=== PATIENT | male | born 1950 | race Caucasian/White ===

== ENCOUNTER → 2017-09-10 16:14 | Outpatient (CLI) | payer MEDICARE, OTHER, SELFPAY ==
--- NOTE | 2017-09-10 16:45 | MRI_ITS ---
STUDY: MRI LEFT SHOULDER REASON FOR EXAM: Male, 67 years old. Pain TECHNIQUE: Standardized fat and water weighted pulse sequences were obtained in all 3 orthogonal planes. COMPARISON: X-ray 12/29/2015 FINDINGS: There is osteoarthritis of the acromioclavicular joint (image /22 axial proton density fat sat). There is slight abnormal signal of the infraspinatus and supraspinatus tendon insertions (image 14, 9, 01/04 coronal proton density fat sat, T2 fat sat). Normal glenohumeral articulation. Normal humeral head and visualized proximal humerus. Normal biceps labral complex. Normal intracapsular long biceps tendon. Normal labrum. Normal capsulo- ligamentous complex. Normal rotator interval. Normal visualized coracohumeral and coracoacromial ligaments. Normal quadrilateral space. Normal axillary space. Normal deltoid muscle. Normal trapezius muscle. MRI/Upper Ext Joint Only(Routine) IMPRESSION: Mild rotator cuff tendinosis Osteoarthritis of the acromioclavicular joint Electronically Signed: Rick Cifuentes MD at 21:55 EDT Tel , Service support ,
== END ==
PROVIDERS: Family Provider Family Medicine; PCP Family Medicine; Visit Provider Orthopaedic Surgery
DX: M75.102 Unspecified rotator cuff tear or rupture of left shoulder, not specified as traumatic (principal)
CPT/HCPCS: 73221

== ENCOUNTER → 2018-09-06 07:22 | Outpatient (CLI) | payer MEDICARE, OTHER, SELFPAY ==
[2018-09-06 10:26] LABS: Hematocrit 45.4 % (40-54); Hemoglobin 15.6 g/dl (13.0-16.5); Mean Corp Hgb Conc 34.4 g/gl (32-36); Mean Corpuscular Hgb 30.1 pg (27.0-32.0); Mean Corpuscular Volume 87.6 fL (80-94); Mean Platelet Vol. 9.1 fl (6.2-12.0); Platelet Count 211 K/mm3 (150-450); RBC Distribution Width CV 13.5 % (11.6-14.6); Red Blood Count 5.18 M/mm3 (4.6-6.2); White Blood Count 6.1 K/mm3 (4.4-11.0)
[2018-09-06 10:27] LABS: Scan Indicated on CBC? Y/N NO
[2018-09-06 10:43] LABS: Anion Gap 4 (5-15); BUN 16 mg/dL (7-18); BUN/Creat Ratio 13.7 RATIO (10-20); Calcium,Total 8.6 mg/dL (8.5-10.1); Chloride 109 mmol/L (98-107); Cholesterol 150 mg/dL (200); Creatinine, Serum 1.17 mg/dL (0.70-1.30); EST Glomerular Filtration Rate 66 mL/min (>60); Est Glom Filt Rate - Afr Amer 80 mL/min (>60); Glucose 98 mg/dL (74-106); High Density Lipoprotein 40 mg/dL; PSA,Total - Annual Screen 2.27 ng/mL (0.00-4.00); Potassium 3.9 mmol/L (3.5-5.1); Sodium Level 141 mmol/L (136-145); Triglycerides 166 mg/dL; Very Low Density Lipoprotein 33 mg/dL (5-40)
== END ==
PROVIDERS: Family Provider Family Medicine; PCP Family Medicine; Referring Provider Family Medicine; Visit Provider Family Medicine
DX: Z00.00 Encounter for general adult medical examination without abnormal findings (principal); E78.00 Pure hypercholesterolemia, unspecified; Z12.5 Encounter for screening for malignant neoplasm of prostate
CPT/HCPCS: 36415; 80048; 80061; 84153; 85027; G0103

== ENCOUNTER → 2019-09-08 07:28 | Outpatient (CLI) | payer MEDICARE, OTHER, SELFPAY ==
[2019-09-08 07:37] LABS: Bacteria 0 SEEN /hpf (None Seen); Mucous, Urine 0 SEEN /hpf (<or=2+); Red Blood Cells-Urine 0 SEEN /hpf (0-5); Squamous Epithelial Cells - UA 0 SEEN /hpf (0-5)
[2019-09-08 09:49] LABS: Absolute Lymphocyte Count 2.16 X10^3/uL (0.83-4.51); Absolute Neutrophil Count 2.8 X10^3/uL (2.0-7.7); Basophil# 0.05 X10^3/uL; Basophil% 0.9 % (0-1); Eosinophils% 3.4 % (0-5); Hematocrit 47.8 % (40-54); Hemoglobin 15.5 g/dL (13.0-16.5); Lymphocyte # 2.16 X10^3/ul (4.0); Lymphocyte % 37.1 % (19-41); Mean Corp Hgb Conc 32.4 g/dL (32-36); Mean Corpuscular Hgb 29.5 pg (27.0-32.0); Mean Platelet Vol. 9.1 fl (6.2-12.0); Monocyte# 0.56 X10^3/uL; Monocyte% 9.6 % (0-10); NRBC Flagged by Analyzer 0 % (0-5); Neutrophil # 2.83 X10^3/uL (2.7-7.7); Neutrophil % 48.7 % (47-70); Platelet Count 228 K/mm3 (150-450); RBC Distribution Width CV 13.5 % (11.6-14.6); RBC Distribution Width SD 45.1 fl (35.1-43.9); Red Blood Count 5.25 M/mm3 (4.6-6.2); White Blood Count 5.8 K/mm3 (4.4-11.0)
[2019-09-08 09:50] LABS: Color, Urine Yellow (Yellow); Glucose, Dipstick Normal (Normal); Ketone-Dipstick Negative (Negative); Leukocyte Esterase-Dipstick 25 /ul (Negative); Nitrite-Dipstick Negative (Negative); Occult Blood-Urine Negative /ul (Negative); Protein-Dipstick Negative (Negative); Specific Gravity, Urine 1.025 (1.002-1.030); Urine Bilirubin Dipstick Negative (Negative); Urine Clarity Clear (Clear); Urine Urobilinogen Normal (Normal)
[2019-09-08 09:59] LABS: White Blood Cells 0-5 SEEN /hpf (0-5)
[2019-09-08 10:50] LABS: ALB/GLOB Ratio 1.4 RATIO (0.9-2.4); AST(SGOT) 21 U/L (15-37); Alanine Aminotransfer ALT/SGPT 25 U/L (16-61); Albumin, Serum 3.8 g/dL (3.2-5.0); Alkaline Phosphatase 63 U/L (45-117); Anion Gap 6 (5-15); BUN 23 mg/dL (7-18); BUN/Creat Ratio 20.9 RATIO (10-20); Calcium,Total 9.1 mg/dL (8.5-10.1); Chloride 106 mmol/L (98-107); Cholesterol 145 mg/dL (200); EST Glomerular Filtration Rate 70 mL/min (>60); Est Glom Filt Rate - Afr Amer 85 mL/min (>60); Globulin 2.8 g/dL (2.2-4.2); Glucose 99 mg/dL (74-106); High Density Lipoprotein 46 mg/dL; Magnesium 2.3 mg/dL (1.6-2.6); Protein, Total 6.6 g/dL (6.4-8.2); Sodium Level 139 mmol/L (136-145); Triglycerides 138 mg/dL; Uric Acid 4.7 mg/dL (3.5-7.2); Very Low Density Lipoprotein 28 mg/dL (5-40)
== END ==
PROVIDERS: PCP Family Medicine; Referring Provider Family Medicine; Visit Provider Family Medicine
DX: M10.9 Gout, unspecified (principal); I10 Essential (primary) hypertension; E78.00 Pure hypercholesterolemia, unspecified
CPT/HCPCS: 36415; 80053; 80061; 81001; 83735; 84550; 85025

== ENCOUNTER → 2019-09-26 07:42 | Outpatient (CLI) | payer MEDICARE, OTHER, SELFPAY ==
[2017-09-02 10:53] VITALS: BMI 31.8
[2019-09-26 10:07] LABS: AST(SGOT) 22 U/L (15-37); Alanine Aminotransfer ALT/SGPT 26 U/L (16-61); Albumin, Serum 3.5 g/dL (3.2-5.0); Alkaline Phosphatase 72 U/L (45-117); Bilirubin, Direct 0.16 mg/dL (0.00-0.30); Protein, Total 6.5 g/dL (6.4-8.2)
== END ==
PROVIDERS: PCP Family Medicine; Referring Provider Family Medicine; Visit Provider Family Medicine
DX: E80.6 Other disorders of bilirubin metabolism (principal)
CPT/HCPCS: 36415; 80076

== ENCOUNTER → 2020-04-02 16:56 | Outpatient (CLI) | payer MEDICARE, OTHER, SELFPAY ==
[2019-12-18 19:08] VITALS: BMI 31.8
[2020-04-02 18:37] LABS: Absolute Lymphocyte Count 0.81 X10^3/uL (0.83-4.51); Absolute Neutrophil Count 13.8 X10^3/uL (2.0-7.7); Basophil# 0.02 X10^3/uL; Basophil% 0.1 % (0-1); Hematocrit 46.4 % (40-54); Hemoglobin 15.8 g/dL (13.0-16.5); Lymphocyte # 0.81 X10^3/ul (4.0); Lymphocyte % 5.1 % (19-41); Mean Corp Hgb Conc 34.1 g/dL (32-36); Mean Corpuscular Hgb 30.4 pg (27.0-32.0); Mean Corpuscular Volume 89.4 fL (80-94); Monocyte# 1.32 X10^3/uL; Monocyte% 8.3 % (0-10); NRBC Flagged by Analyzer 0 % (0-5); Neutrophil # 13.75 X10^3/uL (2.7-7.7); Neutrophil % 85.9 % (47-70); Platelet Count 269 K/mm3 (150-450); RBC Distribution Width CV 13.3 % (11.6-14.6); RBC Distribution Width SD 43.7 fl (35.1-43.9); Red Blood Count 5.19 M/mm3 (4.6-6.2)
[2020-04-02 18:54] LABS: AST(SGOT) 15 U/L (15-37); Alanine Aminotransfer ALT/SGPT 22 U/L (16-61); Albumin, Serum 3.8 g/dL (3.2-5.0); Alkaline Phosphatase 77 U/L (45-117); Anion Gap 7 (5-15); BUN 22 mg/dL (7-18); BUN/Creat Ratio 20.4 RATIO (10-20); Chloride 101 mmol/L (98-107); Creatinine, Serum 1.08 mg/dL (0.70-1.30); EST Glomerular Filtration Rate 72 mL/min (>60); Est Glom Filt Rate - Afr Amer 87 mL/min (>60); Globulin 3.7 g/dL (2.2-4.2); Glucose 114 mg/dL (74-106); Potassium 3.7 mmol/L (3.5-5.1); Protein, Total 7.5 g/dL (6.4-8.2); Sodium Level 134 mmol/L (136-145)
== END ==
PROVIDERS: PCP Family Medicine; Referring Provider Family Medicine; Visit Provider Family Medicine
DX: R10.31 Right lower quadrant pain (principal)
CPT/HCPCS: 36415; 74177; 80053; 85025; 86140; Q9967; A4216

== ENCOUNTER → 2020-04-02 17:28 | Outpatient (CLI) | payer MEDICARE, OTHER, SELFPAY ==
[2019-12-18 19:08] VITALS: BMI 31.8
--- NOTE | 2020-04-02 17:48 | CT_ITS ---
STUDY: CT ABDOMEN AND PELVIS WITH CONTRAST REASON FOR EXAM: Male, 70 years old. RLQ PAIN -- hx:hernia repair RADIATION DOSAGE (If Supplied By Facility): CTDIvol = ( 12.62 ) mGy, DLP = ( 1213.92 ) mGycm TECHNIQUE: Transaxial images were obtained from the dome of the diaphragm to the symphysis pubis without oral contrast. Oral and amp; IV and amp; 100mL Isovue-370 was administered. Sagittal and coronal images were reconstructed. Individualized dose optimization techniques were used for this CT. COMPARISON: None. FINDINGS: The visualized lung bases are unremarkable. The visualized portions of the heart are within normal limits. Normal shape and size of the liver, with widespread incidental liver cysts as much as 5.4 cm. Normal gallbladder and extrahepatic biliary system. There are multiple benign calcified granulomata of the spleen. Normal pancreas. Normal bilateral adrenal glands. Normal right kidney. Normal left kidney. Evaluation of the GI tract is limited by absence of oral contrast. Cannot exclude stomach wall thickening. No dilated loops of bowel or evidence for obstruction. Cannot exclude segmental thickening of the navarrete of the small or large bowel. Cannot exclude enteritis or colitis. Moderate diffuse fecal retention. There is inflammatory process in the right lower quadrant related to an abnormal appendix which measures 1.4 cm across with several appendicoliths. No evidence for perforation or abscess. There is diffuse atherosclerotic calcification of the abdominal aorta, without a demonstrated aneurysm. Normal inferior vena cava. Normal retroperitoneum. Normal urinary bladder. There is enlargement of the prostate gland. Normal abdominal wall. Normal osseous structures. CT/Abdomen/Pelvis WITH Contrast IMPRESSION: Findings consistent with what appears to be severe appendicitis but without perforation or abscess. N.B. : The above information has been verbally conveyed by Bennie Moore MD to Tessa Friend (Tech), OT, on 04/02/2020 19:21:06 (ET). Electronically Signed: Bennie Moore MD at 19:21 EST , Service support ,
== END ==
PROVIDERS: PCP Family Medicine; Visit Provider Family Medicine
DX: R10.31 Right lower quadrant pain (principal)
CPT/HCPCS: 74177; Q9967; A4216

== ENCOUNTER 2020-04-02 19:26 | Inpatient (IN) | payer MEDICARE, OTHER, SELFPAY ==
[2019-12-18 19:08] VITALS: BMI 31.8
[2020-04-02 19:28] VITALS: BP 158/80; PULSE 80; RESP 16; TEMP 36.8; O2SAT 96; BMI 29.9
--- NOTE | 2020-04-02 19:45 | EKG12_ITS ---
Test Reason : DYSRHYTHMIA Blood Pressure : / mmHG Vent. Rate : 065 BPM Atrial Rate : 065 BPM P-R Int : 130 ms QRS Dur : 084 ms QT Int : 412 ms P-R-T Axes : 048 022 046 degrees QTc Int : 428 ms Normal sinus rhythm Normal ECG Confirmed by BRUCE KAYE, JERED ([id number]), dictionary editor YUNIOR MANNING ([id number]) on 04/03/2020 1:08:25 PM Referred By: KADEEM Confirmed By:JERED BARRERA MD
--- NOTE | 2020-04-02 19:57 | ED.VIS.GEN ---
History of Present Illness Chief Complaint: Abd Pain Informant: Patient, Family Onset: Yesterday Current Severity: Mild Maximum Severity: Moderate Narrative: Patient presents secondary to abdominal pain. He was seen by his PCP today and had an outpatient CT scan that showed severe appendicitis. He was sent here from the imaging department. Patient states his pain started yesterday in the right lower quadrant. He did have some vomiting and had a temperature of 100.2. He had mild diarrhea noted. Blood work obtained earlier today reveals a white count of 16 with a left shift. - Past Medical History (1) Obstructive sleep apnea Status: Chronic (2) High cholesterol Status: Chronic Past Medical History - Allergies and Home Meds Allergies/Adverse Reactions: Allergies No Known Allergies Allergy (Verified 04/02/20 19:28) Primary Care Physician: Seng Wilolughby MD [Primary Care Provider] - Lives: Spouse/ Significant Other Smoking Status: Former smoker Review of Systems General: Reports: Fever - 100.2 Eyes: Denies: Visual changes - bilaterally ENT: Denies: Bilateral ear pain Cardiovascular: Denies: Chest pain Respiratory: Denies: Dyspnea, Cough Gastrointestinal: Reports: Abdominal pain, Nausea, Vomiting, Diarrhea Genitourinary: Denies: Dysuria Musculoskeletal: Denies: Swelling, Extremity Pain Skin: Denies: Rash Hematologic: Denies: Easy bruising, Easy bleeding Allergy: Denies: Uticaria Physical Exam Vital Signs/Narrative: Vital Signs Temp Pulse Resp BP Pulse Ox 04/02/20 19:28 98.2 F 80 16 158/80 H 96 Inital Vital Signs reviewed: Yes General: Well nourished, Well developed Head: Normocephalic ENT: Moist mucous membranes Neck: Supple Cardiovascular: Regular rate, Regular rhythm Respiratory: No distress, CTA bilaterally Abdomen: Soft, Tender - Right lower quadrant tenderness to palpation.. Negative for: Guarding, Rebound tenderness Skin: Normal color Neurological: Alert, Oriented x3 Psychological: Normal affect Diagnostic/Tx/Re-eval Blood work obtained earlier today reveals a white count of 16 with 85.9% neutrophils. Chemistry studies grossly unremarkable. CRP is 107. CT scan with contrast reveals severe appendicitis without perforation or abscess. Rapid Covid antigen is ordered at this time. Patient be given a dose of Zosyn. I will speak with the surgeon regarding further treatment. - EKG Initial EKG Interpretation: Sinus Rhythm - Sinus at 65 with no acute ischemia. - Medical Decision Making Patient was given a dose of Zosyn on arrival. Rapid Covid antigen did return positive. Patient was seen at bedside by Dr. Waite and plan will be to go to the OR for appendectomy. ED Disposition - Plan for ED Patient: Disposition: Acute Care Hospital [facility] Diagnosis: COVID-19, Appendicitis Referrals: Seng Willoughby MD [Primary Care Provider] -
[2020-04-02] MEDS: 0.9% Normal Saline 1,000 ML 150 ML IV (20:16)
--- NOTE | 2020-04-02 20:53 | PCM.CONS.GEN ---
Problem List (1) Acute appendicitis Status: Acute Qualifiers: Acute appendicitis type: with localized peritonitis Appendicitis gangrene presence: unspecified whether gangrene present Appendicitis perforation presence: without perforation Appendicitis abscess presence: without abscess Qualified Code(s): K35.30 - Acute appendicitis with localized peritonitis, without perforation or gangrene Reason for Consult Date of Consultation: 04/02/20 History of Present Illness: The patient is a 70 year old M who presents secondary to abdominal pain. He was seen by his PCP today and had an outpatient CT scan that showed severe appendicitis. He was sent here from the imaging department. Patient states his pain started yesterday in the right lower quadrant. He did have some vomiting and had a temperature of 100.2. He had mild diarrhea noted. Blood work obtained earlier today reveals a white count of 16 with a left shift. CT scan shows: There is inflammatory process in the right lower quadrant related to an abnormal appendix which measures 1.4 cm across with several appendicoliths. No evidence for perforation or abscess. Past Medical History Past Medical History (Chronic Problems): Chronic Problems (Last Reviewed 12/18/19 @ 19:[address] Farrukh Waite MD) Obstructive sleep apnea (Chronic) High cholesterol (Chronic) Medical History: Medical History (Last Reviewed 04/02/20 @ 20:[address] Farrukh Waite MD) GERD (gastroesophageal reflux disease) K21.9 History of Mohs micrographic surgery for skin cancer Z85.828, Z98.890 Sleep apnea G47.30 High cholesterol E78.00 Hypertension I10 IBS (irritable bowel syndrome) K58.9 Allergies No Known Allergies Allergy (Verified 04/02/20 19:28) Home Medications: Ambulatory Orders Medication Instructions Recorded allopurinol 300 mg tablet 1 tab PO DAILY 12/12/19 aspirin 81 mg tablet,delayed 81 mg PO DAILY 12/12/19 release atorvastatin 10 mg tablet 1 tab PO DAILY 12/12/19 kbtkwoyw-zjy-dooko acid 300 1 tab PO DAILY 12/12/19 mcg-lycopene 600 mcg-lutein 300 mcg tablet omeprazole 20 mg capsule,delayed 1 tab PO DAILY 12/12/19 release sildenafil 100 mg tablet ea PO 12/12/19 Surgical History: Surgical History (Last Reviewed 04/02/20 @ 20:[address] Farrukh Waite MD) History of colonoscopy Onset Date: ~2012 Z98.890 History of nasal septoplasty Z98.890 History of right inguinal hernia repair Onset Date: ~2013 Z98.890, Z87.19 history of hernia repair Lives: Spouse/ Significant Other Smoking Status: Former smoker Review of Systems Constitutional: Reports: Anorexia, Chills, Fever Cardiovascular: Denies: Chest Pain, Chest Pressure, Chest Tightness, Palpitations Respiratory: Denies: Cough, Hemoptysis, Shortness of breath at rest, Shortness of breath upon exertion, Wheezing Gastrointestinal: Reports: Abdominal Pain Patient Problems: Active and Suspected Problems (Last Reviewed 12/18/19 @ 19:[address] Farrukh Waite MD) Acute appendicitis (Acute) - Physical Exam Vitals/I&O's: Vital Signs Temp Pulse Resp BP Pulse Ox 98.2 F 80 16 158/80 H 96 04/02/20 19:28 04/02/20 19:28 04/02/20 19:28 04/02/20 19:28 04/02/20 19:28 Oxygen Delivery Method Room Air Weight: 220 lb 7.396 oz Body Mass Index (BMI) 29.9 General: Alert, Oriented x3 Lungs: Clear to auscultation Cardiovascular: Regular rate, Regular Rhythm, No murmurs Abdomen: Tender - Patient has tenderness along the right side. There is no rebound there is some voluntary guarding he has a negative Rovsing sign Current Medications Sodium Chloride () 1,000 mls @ 150 mls/hr IV .Q6H40M ISA Last Admin: 04/02/20 20:16 Dose: 150 mls/hr Documented by: Assessment/Plan All Active Problems (Last Reviewed 12/18/19 @ 19:[address] Farrukh Waite MD) Acute appendicitis (Acute) Patient has a retrocecal appendicitis and my plan is to perform a laparoscopic appendectomy on him given the fact that he has several appendicoliths he is not going to be a candidate that we can manage with IV antibiotics. Risk benefits to include bleeding infection possible delayed abscess have been reviewed with the patient and his . Patient also understands blood clots heart attacks pneumonias and strokes are also a possibility. He understands that there can be delayed abscess he understands that he could have a drain placed. His Covid status is pending however he is not going to be able to be managed in a conservative management mid with IV antibiotics only. Office Visits / Consults: [id number] IP Consult L4 - Modifier 57
--- NOTE | 2020-04-02 21:30 | APP_PTH ---
PATIENT: SUZETTE GOTTLIEB LOC: [facility] U#:[id number] AGE/SX: 70/M ROOM: [facility]316 RE04/02/[address]: Dr. Roel Rizzo MD : 1950 BED: 1 DIS: 04/06/2020 SPEC #: [id number] RECD: 04/03/20 09:08 STATUS: LETY REJayna #: [id number] SANTOS: 04/02/20 21:[address]: Farrukh Waite DEPT: SURGICAL PATHOLOGY RECD BY: Mike Griffith ENTERED: 04/03/20 09:53 SP TYPE: APPENDIX OTHR DR: MD Dr. Roel Sands MD Dr. Robert Leininger, MD Tissues: Appendix, NOS Procedures: Surgery Specimen Level III HEADER OPERATION: Laparoscopic appendectomy PRE-OP DIAGNOSIS: Acute appendicitis TISSUE SUBMITTED: Appendix MICROSCOPIC DIAGNOSIS Appendix, appendectomy: Acute appendicitis. Acute serositis. AM:ricardo 04/04/20 MICROSCOPIC DESCRIPTION Slides are reviewed. GROSS DESCRIPTION Received in fixative is one container labeled with the patient's name and designated appendix. The specimen consists of an appendix in two pieces. The distal portion with tip measures 3.5 cm in length and 1 cm in diameter. The attached periappendiceal adipose tissue measures up to 1.5 cm in width. The proximal portion measures 3.5 cm in length and 1 cm in diameter. The attached periappendiceal adipose tissue measures up to 3 cm in width. The site of disruption most likely represents site of rupture. material is also noted in the container. The serosal surface is congested and covered with pak, purulent exudate. The mucosa is congested and hemorrhagic. Airline Reservation Agent sections are submitted in two cassettes. / SJ:ricardo 04/03/20 TC:2 CPT: 23401
[2020-04-02 21:31] VITALS: BP 143/76; PULSE 84; PULSE 86; RESP 17; RESP 20; TEMP 37.4; O2SAT 97; BMI 29.9
--- NOTE | 2020-04-02 23:31 | OP.PCM_ITS ---
Problem List (1) Acute appendicitis Status: Acute Qualifiers: Acute appendicitis type: with localized peritonitis Appendicitis gangrene presence: with gangrene Appendicitis perforation presence: without perforation Appendicitis abscess presence: without abscess Qualified Code(s): K35.31 - Acute appendicitis with localized peritonitis and gangrene, without perforation Report of Operation Date of Procedure: 04/02/20 Pre-Operative Diagnosis: Acute gangrenous retrocecal appendicitis with appendicoliths Post-Operative Diagnosis: Same Surgery/Procedure Performed:: Laparoscopic appendectomy Type of Anesthesia:: General Anesthesiologist: Jose Ledezma Specimen's removed: Appendix Drains: 15 round Noé-Peace Estimated Blood Loss (mL): < 25cc Description of Procedure: Patient was brought into the operating room. Placed in the supine position. The entire operating team was in the OR prior to induction of anesthesia. Jony azul was intubated without difficulty his abdomen was then sterilely prepped and draped in the usual fashion. Local was injected supraumbilically. Dissection was carried down to the fascia fascia was grasped with a [place] varies needle was placed inside the abdomen the abdomen was insufflated 15 torr. A 10/12 trocar was placed without difficulty. A suprapubic #5 trocar was placed. A left lower quadrant #5 trocar was placed. Both of these under direct visualization without injury to underlying structures. Patient was placed in the headdown position and rotated to the left. Patient had a retrocecal appendicitis and was very clear I was not going to be able to get to the base of this very easily and made a determination I was going to have to mobilize the terminal ileum which was attached to the lateral sidewall. This was easily accomplished with the Enseal. I came then down posteriorly to the cecum and started to rotated I knew from the CAT scan that he had multiple appendicoliths and it was dark and gangrenous as I started my dissection the appendix was easily friable and tore into 2 pieces. I took the initial piece as well as the fecalith and placed in a specimen bag and removed it. I then did a quite a bit of dissecting until I came down across the base of the appendix came across the mesoappendix with the Enseal and then I transected the base of the appendix with a 45 linear cutter. This took quite a bit of tedious dissection and time but I did have good hemostasis and I was able to remove the appendix and placed it into the back as well as another appendicolith. There was some small amounts of purulent material but no large abscess was identified. I irrigated all this out. I decided it was best to place a 15 round Noé-Peace drain which I did in the right upper quadrant and directed it down into the pelvis. I irrigated out the abdomen with 2 L of warm irrigation. I placed the cecum back into its normal anatomic position and the drain was underneath this and went down into the pelvis. The drain was sutured in with a 3-0 nylon. I suctioned out all the air the trochars were removed without difficulty the fascia the umbilical port was closed with [id number] stitch of 0 Vicryl skin incisions were closed with subcuticular stitches of 4-0 Monocryl and the patient tolerated the procedure well. - Admit VTE Documentation VTE Present on Admission: No VTE Mechan Device Prophylaxis: SCD's VTE Pharm Prophylaxis ordered?: No Reason prophylaxis not ordered:: Treatment Not Indicated [id number]: [id number] Laparoscopy appendectomy
--- NOTE | 2020-04-02 23:42 | PCM.CONS.GEN ---
Reason for Consult Date of Consultation: 04/02/20 Reason for Consultation: Medical consultation History of Present Illness: Admission Diagnoses: 1. Acute Sepsis secondary to Acute complicated appendicitis and possibly #2 2. ? Acute Viral Syndrome, COVID-19 3. Elevated BP without hypertensive diagnosis 4. Gout 5. Hyperlipidemia 6. PORTILLO 7. GERD The patient is a 70 y/o M w/ PMHx: HTN, IBS, PORTILLO on CPAP q HS, HLD, GERD who presents to the [facility] ED on 04/02/20 with history of 48 hours of fatigue, malaise, fevers, RLQ abdominal pain described as an ongoing dull ache with associated nausea, occasional emesis as well as occasional loose stool with PCP evaluation following which he underwent CT demonstrating acute appendicitis referred to the emergency room from the imaging department for evaluation per general surgery. Work-up in the ED included T 99.3, heart rate 80, BP 158/80, respiratory rate 16, 96% on room air, CBC with WC 16, hemoglobin 15.8, platelet 269 with left shift with concurrent lymphopenia, CMP with sodium 134, BUN/creatinine 22/1.08, glucose 114, total bilirubin 2, direct bilirubin 0.16, AST/ALT 15/22, rapid Covid antigen obtained and noted to be positive. CT abdomen and pelvis per PCP with findings consistent with severe appendicitis but without perforation or abscess. Patient was taken from the ED to the OR per Dr. Waite for laparoscopic appendectomy with noted significant acute gangrenous retrocecal appendicitis with appendicoliths with placement of ZHANE. Following OR patient was admitted to the ICU per Dr. Waite with requested consultation to hospitalist medicine. Patient denied any recent ill contacts prior to this onset and notes that he has been wearing a mask. He denies any recent headaches, sore throat, cough, dyspnea, congestion, body aches, alteration in sense of taste or smell. Past Medical History Past Medical History (Chronic Problems): Chronic Problems (Last Reviewed 04/02/20 @ 20:[address] Farrukh Waite MD) Obstructive sleep apnea (Chronic) High cholesterol (Chronic) Medical History: Medical History (Last Reviewed 04/02/20 @ 20:[address] Farrukh Waite MD) GERD (gastroesophageal reflux disease) K21.9 History of Mohs micrographic surgery for skin cancer Z85.828, Z98.890 Sleep apnea G47.30 High cholesterol E78.00 Hypertension I10 IBS (irritable bowel syndrome) K58.9 Allergies No Known Allergies Allergy (Verified 04/02/20 19:28) Home Medications: Ambulatory Orders Medication Instructions Recorded allopurinol 300 mg tablet 1 tab PO DAILY 12/12/19 aspirin 81 mg tablet,delayed 81 mg PO DAILY 12/12/19 release atorvastatin 10 mg tablet 1 tab PO DAILY 12/12/19 ghanwbzv-fmc-fcxnc acid 300 1 tab PO DAILY 12/12/19 mcg-lycopene 600 mcg-lutein 300 mcg tablet omeprazole 20 mg capsule,delayed 1 tab PO DAILY 12/12/19 release sildenafil 100 mg tablet ea PO 12/12/19 Surgical History: Surgical History (Last Reviewed 04/02/20 @ 20:[address] Farrukh Waite MD) History of colonoscopy Onset Date: ~2012 Z98.890 History of nasal septoplasty Z98.890 History of right inguinal hernia repair Onset Date: ~2013 Z98.890, Z87.19 history of hernia repair Surgical History: - - Right inguinal hernia repair, rhinoplasty. Psychiatric History: No pertinent psych hx Lives: Spouse/ Significant Other Smoking Status: Former smoker - Patient quit cigarette tobacco usage approximately 40 years prior to current presentation with prior to this 1 pack/day since he had been a teenager. Tobacco Use: Non-smoker Alcohol: Occasional - Patient notes approximately 1 glass of wine nightly. Drugs: None - *Family History Maternal Family History: Family History (Last Reviewed 12/18/19 @ 19:[address] Farrukh Waite MD) Sister Colon cancer Father Heart disease History Items: - - Patient notes that his mother during childbirth, specifically with him. Paternal Family History: Family History (Last Reviewed 12/18/19 @ 19:[address] Farrukh Waite MD) Sister Colon cancer Father Heart disease History Items: Heart Disease Sibling Family History: Family History (Last Reviewed 12/18/19 @ 19:[address] Farrukh Waite MD) Sister Colon cancer Father Heart disease History Items: Cancer - Sister with a history of colon cancer. Review of Systems Constitutional: Reports: Anorexia, Fever, Malaise, Weakness, Fatigue. Denies: Chills, Weight Change HEENT: Denies: Head Aches, Sinus Congestion, Sinus Drainage Cardiovascular: Denies: Chest Pain, Chest Pressure, Chest Tightness, Palpitations Respiratory: Denies: Cough, Shortness of Breath, Shortness of breath at rest, Shortness of breath upon exertion, Sputum production Gastrointestinal: Reports: Abdominal Pain, Diarrhea, Nausea, Vomiting Genitourinary: Denies: Dysuria Musculoskeletal: Denies: Joint Pain, Joint Tenderness Skin: Denies: Rash, Wounds Neurological: Denies: Numbness, Tingling, Focal weakness Psychiatric: Denies: Anxiety, Depression, Homicidal Ideations, Suicidal Ideations Hematologic/ Lymphatic: Denies: Easy Bruising, Easy Bleeding Patient Problems: Active and Suspected Problems (Last Reviewed 04/02/20 @ 20:[address] Farrukh Waite MD) Acute appendicitis (Acute) COVID-19 (Acute) Appendicitis (Acute) Subjective: Patient laying in ICU bed, fatigued appearing, no acute distress, still some abdominal discomfort but recent OR. Objective: Physical Examination: General: awake, alert, oriented x 3 and cooperative, laying in the ICU bed, fatigued, no acute distress. Skin: normal color, turgor, no icterus, cyanosis. HEENT: AT/NC, EOMI, PERRLA, dry MM, no carotid bruits or JVD noted. Lungs: CTA bilaterally, moderate effort, moderate decrease BL bases, no rales, ronchi or wheezing. Heart: Regular rate and rhythm; no gallop, rub audible. Abdomen: soft, expected tenderness especially right lower quadrant, status post recent OR for laparoscopic appendectomy, ZHANE drain in place with serosanguineous fluid, difficult to discern distention as significant discomfort with any palpation attempt, decreased bowel sounds, unable to discern HSM secondary to discomfort. Extremities: no cyanosis, clubbing, or edema. Neurological: patient awake, alert, oriented as noted; cognitive function nearing baseline intact, patient has expected fatigue status post OR; pupils equally reactive to light and accomodation; cranial nerves II-XII grossly normal, moving all 4 extremities, no focal deficits, strength moderately to severely globally decreased. Psychiatric: affect appears fatigued otherwise normal, no acute evidence of depressive or anxiety feelings. - Physical Exam Vitals/I&O's: Vital Signs Temp Pulse Resp BP Pulse Ox 99.3 F H 86 20 H 143/76 H 97 04/02/20 21:31 04/02/20 21:31 04/02/20 21:31 04/02/20 21:31 04/02/20 21:31 Oxygen Delivery Method Room Air Weight: 220 lb 7.396 oz Body Mass Index (BMI) 29.9 Intake and Output for Last 24 Hours 03/31/20 04/01/20 04/02/20 23:59 23:59 23:59 Intake Total 50 / 50 Balance 50 / 50 Microbiology Past 72 Hours 04/02/20 19:57 Mucosa - Nose SARS-CoV-2 Antigen (Rapid) - Final SARS-CoV-2 (COVID 19) Current Medications Sodium Chloride () 1,000 mls @ 150 mls/hr IV .Q6H40M ISA Last Admin: 04/02/20 20:16 Dose: 150 mls/hr Documented by: Assessment/Plan All Active Problems (Last Reviewed 04/02/20 @ 20:[address] Farrukh Waite MD) Acute appendicitis (Acute) COVID-19 (Acute) Appendicitis (Acute) The patient is a 70 y/o M w/ PMHx: IBS, PORTILLO on CPAP q HS, HLD, GERD who presents to the [facility] ED on 04/02/20 with history of 48 hours of fatigue, malaise, fevers, RLQ abdominal pain described as an ongoing dull ache with associated nausea, occasional emesis as well as occasional loose stool with PCP evaluation following which he underwent CT demonstrating acute appendicitis referred to the emergency room from the imaging department for evaluation per general surgery. 1. Acute Sepsis secondary to Acute complicated appendicitis and possibly #2: Patient status post OR for laparoscopic appendectomy with noted acute gangrenous retrocecal appendicitis with appendicoliths, ZHANE in place, transition to the ICU following per patient's attending, Dr. Waite, postoperative antibiotic therapy per surgery discretion, oral intake per surgery discretion, chemoprophylaxis given recent operative intervention per surgery discretion, would expect consultation with ICU given usage of ICU bed, antiemetic/pain regimen/bowel regimen/activity parameters per surgery discretion. 2. ? Acute Viral Syndrome, COVID-19: Patient does have lymphopenia, symptoms with fever, nausea with emesis as well as occasional loose stools but in the setting of #1, acute appendicitis, testing performed with rapid antigen therefore will request repeat testing with PCR to be thorough. Maintain patient in the ICU as noted #1 on Covid precautions, maintain on oxygen with wean as tolerated to room air, HOB, IS parameters, will obtain COVID admission panel labs including procalcitonin, CRP, CPK, Ferritin, LDH, d-dimer although given recent infection and surgery would expect certain elevations, continue supportive care including q 2 hour turning including prone given no prone bed availability and judicious hydration. 3. Elevated BP without hypertensive diagnosis: ED evaluation with elevated blood pressures above goal, continue to monitor, add oral regimen if appropriate, as needed IV hydralazine in interim. 4. Gout: Continue home allopurinol regimen. 5. Hyperlipidemia: Continued home statin regimen. 6. PORTILLO: We will continue CPAP nightly. 7. GERD: Home PPI continued. 8. DVT prophylaxis: SCDs, defer chemoprophylaxis to surgery given recent OR. 9. CODE status: Patient JAYLAN is his and living will is currently in place. Discussed CODE status at length including difference between FULL code, DNR-CCA and DNR-CC status. Following discussions about the differences in these status, requested Full Code status. Advanced Care Planning Face to Face Time: 16 minutes. Office Visits / Consults: 07709 IP Consult L4 Procedures: [id number] Advncd Care Plan 30 Min
[2020-04-03] VITALS (23 sets, daily range): BP systolic 119–168; BP diastolic 76–100; PULSE 61–100; RESP 13–23; TEMP 36.3–36.8; O2SAT 93–100; BMI 31.8
[2020-04-03] MEDS: 0.9% Normal Saline 1,000 ML 100 ML IV ×3 (00:25→20:52)
[2020-04-03] MEDS: Morphine 2 MG/ML Syringe IV (00:59)
[2020-04-03] MEDS: 0.9% Saline Lock 10 ML Syringe IV ×3 (01:00→10:50)
[2020-04-03] MEDS: oxyCODONE 5 MG Tablet PO ×2 (01:16→05:33)
[2020-04-03 01:25] LABS: International Normalized Ratio 1.2; Prothrombin Time (Protime)PT. 14.8 SECONDS (11.7-14.9)
[2020-04-03 01:26] LABS: Fibrinogen 567 mg/dl (203-444)
[2020-04-03 01:36] LABS: D-Dimer Quantitative (DVT/PE) 1.47 FEU/ug/m (0.27-0.49)
[2020-04-03 01:47] LABS: CPK Total, Creatine Kinase 165 U/L (39-308); LDH 190 U/L (87-241)
[2020-04-03 01:58] LABS: BNP,B-Type NATRIURETIC PEPTIDE 255.2 pg/mL (0-100)
[2020-04-03 02:07] LABS: Procalcitonin 0.12 ng/mL (0.00-0.09)
[2020-04-03 02:30] LABS: Probe Check PASS; Specimen Processing Control PASS
[2020-04-03 05:55] LABS: Absolute Neutrophil Count 9.8 X10^3/uL (2.0-7.7); Basophil# 0.01 X10^3/uL; Basophil% 0.1 % (0-1); Eosinophils% 1.8 % (0-5); Hematocrit 44.8 % (40-54); Hemoglobin 15.4 g/dL (13.0-16.5); Lymphocyte % 2.7 % (19-41); Mean Corp Hgb Conc 34.4 g/dL (32-36); Mean Corpuscular Hgb 30.2 pg (27.0-32.0); Mean Corpuscular Volume 87.8 fL (80-94); Mean Platelet Vol. 8.4 fl (6.2-12.0); Monocyte# 0.62 X10^3/uL; Monocyte% 5.7 % (0-10); NRBC Flagged by Analyzer 0 % (0-5); Neutrophil % 89.3 % (47-70); POSITIVE DIFFERENTIAL YES; POSITIVE MORPHOLOGY YES; Platelet Count 197 K/mm3 (150-450); RBC Distribution Width CV 13.6 % (11.6-14.6)
[2020-04-03 05:58] LABS: Differential Indicated SCAN CRITERIA MET
[2020-04-03 06:10] LABS: ALB/GLOB Ratio 0.9 RATIO (0.9-2.4); AST(SGOT) 15 U/L (15-37); Alanine Aminotransfer ALT/SGPT 23 U/L (16-61); Albumin, Serum 3.3 g/dL (3.2-5.0); Alkaline Phosphatase 66 U/L (45-117); Anion Gap 5 (5-15); BUN 21 mg/dL (7-18); BUN/Creat Ratio 20.4 RATIO (10-20); Calcium,Total 8.3 mg/dL (8.5-10.1); Chloride 105 mmol/L (98-107); Creatinine, Serum 1.03 mg/dL (0.70-1.30); EST Glomerular Filtration Rate 76 mL/min (>60); Est Glom Filt Rate - Afr Amer 92 mL/min (>60); Estimated Creatinine Clearance 73.25 ml/min; Globulin 3.5 g/dL (2.2-4.2); Glucose 152 mg/dL (74-106); Potassium 4.2 mmol/L (3.5-5.1); Protein, Total 6.8 g/dL (6.4-8.2); Sodium Level 135 mmol/L (136-145)
[2020-04-03 06:12] LABS: Differential Comment SCANNED
--- NOTE | 2020-04-03 07:19 | PCM.PN.HOSP ---
Patient Problems: Active and Suspected Problems (Last Reviewed 04/02/20 @ 20:[address] Farrukh Waite MD) Acute appendicitis (Acute) COVID-19 (Acute) Appendicitis (Acute) Reason for Visit: Follow-up after complicated acute gangrenous appendicitis with localized peritonitis Objective: Seen and examined. Patient sinus rhythm on manager of change. Mild pain on right side of abdomen. Has serosanguineous ZHANE drain Physical exam General: Alert, Oriented x3, Cooperative HEENT: Atraumatic, PERRLA, EOMI, Normocephalic Oral: No Gingival or Mucosal Lesions/ Ulcerations Neck: Supple, No JVD, Negative Carotid Bruits Lungs: Air entry diminished in right lung bases. No crepitation/rhonchi Cardiovascular: Regular rate, Regular Rhythm, Normal S1, Normal S2, No murmurs Abdomen: Tenderness present on the right side of abdomen. Bowel sound sluggish. ZHANE drain with serosanguineous fluid. Non-Distended : No renal angle tenderness. No suprapubic tenderness. Extremities: No edema, Capillary Refill Less than 3 Seconds Skin: No rashes, No breakdown Musculoskeletal: No Tenderness to Palpation of Joints or Extremities Neurological: Cranial nerves II-XII grossly intact, Deep Tendon Reflexes 2+/4 and Symmetrical, Neuro grossly intact Psych/Mental Status: Normal Affect, Appropriate. Vitals/I&O's: Vital Signs Temp Pulse Resp BP Pulse Ox 97.9 F 83 23 H 165/94 H 95 04/03/20 04:00 04/03/20 06:00 04/03/20 06:00 04/03/20 06:00 04/03/20 06:00 Oxygen Flow Rate (L/min) 4 Oxygen Delivery Method Nasal Cannula Weight: 234 lb 12.677 oz Body Mass Index (BMI) 31.8 Intake and Output for Last 24 Hours 04/01/20 04/02/20 04/03/20 23:59 23:59 23:59 Intake Total 50 / 50 622 / 622 Output Total 110 / 110 Balance 50 / 50 512 / 512 Microbiology Past 72 Hours 04/02/20 19:57 Mucosa - Nose SARS-CoV-2 Antigen (Rapid) - Final SARS-CoV-2 (COVID 19) Laboratory Results 04/03/20 00:30: PT 14.8, INR 1.2, Fibrinogen 567 H, D-Dimer Quant (PE/DVT) 1.47 H* 04/03/20 00:30: Lactate Dehydrogenase 190, Total Creatine Kinase 165, C-React Prot Ext Range 140.00 H 04/03/20 00:30: B-Natriuretic Peptide 255.2 H 04/03/20 00:30: Procalcitonin 0.12 H 04/03/20 00:30: COVID-19 (PADMINI) Negative 04/03/20 05:35: WBC 11.0, RBC 5.10, Hgb 15.4, Hct 44.8, MCV 87.8, MCH 30.2, MCHC 34.4, RDW Std Deviation 44.0 H, RDW Coeff of Usman 13.6, Plt Count 197, MPV 8.4, Immature Gran % (Auto) 0.400, Neut % (Auto) 89.3 H, Lymph % (Auto) 2.7 L, [place] % (Auto) 5.7, Eos % (Auto) 1.8, Baso % (Auto) 0.1, Absolute Neuts (auto) 9.8 H, Absolute Lymphs (auto) 0.30 L, Nucleated RBC % 0, Differential Comment SCANNED 04/03/20 05:35: Sodium 135 L, Potassium 4.2, Chloride 105, Carbon Dioxide 25.0, Anion Gap 5, BUN 21 H, Creatinine 1.03, Estim Creat Clear Calc 73.25, Est GFR (MDRD) Af Amer 92, Est GFR (MDRD) Non-Af 76, BUN/Creatinine Ratio 20.4 H, Glucose 152 H, Calcium 8.3 L, Total Bilirubin 1.80 H, AST 15, ALT 23, Alkaline Phosphatase 66, Total Protein 6.8, Albumin 3.3, Globulin 3.5, Albumin/Globulin Ratio 0.9 Current Medications Acetaminophen (Acetaminophen 325 Mg Tablet) 650 mg PO Q6H PRN PRN PRN Reason: Pain Score 1-10 Al Hydroxide/Mg Hydroxide (Mag Hydrox/Al Hydrox/Simeth 30 Ml Udc) 30 ml PO Q6H PRN PRN PRN Reason: Gastric Burning Allopurinol (Allopurinol 300 Mg Tablet) 300 mg PO DAILYCM ISA Atorvastatin Calcium (Atorvastatin Calcium 10 Mg Tablet) 10 mg PO DAILY@2200 ISA Bisacodyl (Bisacodyl 5 Mg Tablet) 10 mg PO DAILY PRN PRN PRN Reason: Constipation Enoxaparin Sodium (Enoxaparin 40 Mg/0.4 Ml Syringe) 40 mg SC DAILY [facility] Hydralazine HCl (Hydralazine 20 Mg/Ml Vial) 10 mg IV Q4H PRN PRN PRN Reason: SBP > 160 Hydromorphone HCl (Hydromorphone 1 Mg/Ml Syringe) 1 - 2 mg IV Q2H PRN PRN PRN Reason: Pain Score 6-10 Sodium Chloride () 1,000 mls @ 100 mls/hr IV .Q10H [facility] Last Admin: 04/03/20 00:25 Dose: 100 mls/hr Documented by: Piperacillin Sod/Tazobactam (Sod 3.375 gm/ Sodium Chloride) 50 mls @ 12.5 mls/hr IV Q8 [facility] Last Admin: 04/03/20 05:34 Dose: 12.5 mls/hr Documented by: Sodium Chloride () 250 mls @ 15 mls/hr IV .[id number] PRN PRN Reason: Saline Flush Morphine Sulfate (Morphine 2 Mg/Ml Syringe) 1 - 2 mg IV Q4H PRN PRN PRN Reason: Pain Score 4-5 Last Admin: 04/03/20 00:59 Dose: 2 mg Documented by: Morphine Sulfate (Morphine 2 Mg/Ml Syringe) 2 - 4 mg IV Q3H PRN PRN PRN Reason: Pain Score 6-10 Ondansetron HCl (Ondansetron 4 Mg/2 Ml Vial) 4 mg IV Q8H PRN PRN PRN Reason: Nausea Oxycodone HCl (Oxycodone 5 Mg Tablet) 5 - 10 mg PO Q4H PRN PRN PRN Reason: Pain Score 1-10 Last Admin: 04/03/20 05:33 Dose: 5 mg Documented by: Pantoprazole Sodium (Pantoprazole Sodium 20 Mg Tablet) 20 mg PO DAILY [facility] Polyethylene Glycol (Polyethylene Glycol 3350 17 Gm Packet) 17 gm PO DAILY [facility] Prochlorperazine Edisylate (Prochlorperazine 10 Mg/2 Ml Vial) 10 mg IV Q6H PRN PRN PRN Reason: Nausea/Vomiting Sodium Chloride (0.9% Saline Lock 10 Ml Syringe) 10 - 40 ml IV UD PRN PRN Reason: SALINE FLUSH Last Admin: 04/03/20 05:33 Dose: 10 ml Documented by: STROKE Vital Signs/Narrative: Vital Signs Temp Pulse Resp BP Pulse Ox 04/03/20 06:00 83 23 H 165/94 H 95 04/03/20 05:00 91 22 H 157/89 H 96 04/03/20 04:00 97.9 F 100 23 H 168/89 H 95 Medical Necessity - Tobacco Use Smoking Status: Former smoker - Patient quit cigarette tobacco usage approximately 40 years prior to current presentation with prior to this 1 pack/day since he had been a teenager. Tobacco Use: Non-smoker Assessment/Plan All Active Problems (Last Reviewed 04/02/20 @ 20:[address] Farrukh Waite MD) Acute appendicitis (Acute) COVID-19 (Acute) Appendicitis (Acute) The patient is a 70 y/o M WITH HISTORY OF PORTILLO was admitted with 48 hours of fever, malaise, right lower quadrant abdominal pain associated with nausea, occasional vomiting and loose stool and CT abdomen and pelvis with IV contrast findings consistent with severe appendicitis but without perforation or abscess. 1. Acute Sepsis secondary to Acute complicated retrocecal appendicitis with gangrene and localized peritonitis without perforation: Operative note reviewed. ZHANE drain in place. On IV antibiotic Zosyn. Monitor intake and output, drain output. Rest as per surgeon Dr. Waite recommendation. Incentive spirometry. September patient is medically stable [facility] 2. False positive COVID-19 rapid antigen test: Patient has symptomatology and clinical features of acute complicated appendicitis at the time of admission. No lymphopenia. Initially, rapid COVID-19 screening antigen test was positive but more reliable COVID-19 PCR came negative. Since patient has sepsis and inflammation secondary to acute complicated appendicitis inflammatory markers will be elevated. CRP, D-dimer are elevated. BNP 140. Procalcitonin 0.12 which is less than 0.5, less chances of progression to septic shock. COVID-19 ruled out by ID and customer marketing intern and COVID-19 precaution discontinued 3. Elevated BP without hypertensive diagnosis: ED evaluation with elevated blood pressures above goal, continue to monitor, add oral regimen if appropriate, as needed IV hydralazine in interim. 4. Gout: Continue home allopurinol regimen. 5. Hyperlipidemia: Continued home statin regimen. 6. PORTILLO: continue CPAP nightly. 7. GERD: Home PPI continued. 8. DVT prophylaxis: Enoxaparin 40 mg daily. 9. CODE status: Full code Laboratory Results 04/03/20 00:30: PT 14.8, INR 1.2, Fibrinogen 567 H, D-Dimer Quant (PE/DVT) 1.47 H* 04/03/20 00:30: Lactate Dehydrogenase 190, Total Creatine Kinase 165, C-React Prot Ext Range 140.00 H 04/03/20 00:30: B-Natriuretic Peptide 255.2 H 04/03/20 00:30: Procalcitonin 0.12 H 04/03/20 00:30: COVID-19 (PADMINI) Negative 04/03/20 05:35: WBC 11.0, RBC 5.10, Hgb 15.4, Hct 44.8, MCV 87.8, MCH 30.2, MCHC 34.4, RDW Std Deviation 44.0 H, RDW Coeff of Usman 13.6, Plt Count 197, MPV 8.4, Immature Gran % (Auto) 0.400, Neut % (Auto) 89.3 H, Lymph % (Auto) 2.7 L, [place] % (Auto) 5.7, Eos % (Auto) 1.8, Baso % (Auto) 0.1, Absolute Neuts (auto) 9.8 H, Absolute Lymphs (auto) 0.30 L, Nucleated RBC % 0, Differential Comment SCANNED 04/03/20 05:35: Sodium 135 L, Potassium 4.2, Chloride 105, Carbon Dioxide 25.0, Anion Gap 5, BUN 21 H, Creatinine 1.03, Estim Creat Clear Calc 73.25, Est GFR (MDRD) Af Amer 92, Est GFR (MDRD) Non-Af 76, BUN/Creatinine Ratio 20.4 H, Glucose 152 H, Calcium 8.3 L, Total Bilirubin 1.80 H, AST 15, ALT 23, Alkaline Phosphatase 66, Total Protein 6.8, Albumin 3.3, Globulin 3.5, Albumin/Globulin Ratio 0.9 Inpatient E&M: [id number] Subs Hosp L3
[2020-04-03] MEDS: Pantoprazole Sodium 20 MG Tablet PO (08:44)
[2020-04-03] MEDS: Allopurinol 300 MG Tablet PO (08:44)
[2020-04-03] MEDS: Polyethylene Glycol 3350 17 GM PACKET PO (08:45)
[2020-04-03] MEDS: Enoxaparin 40 MG/0.4 ML Syringe SC (08:45)
--- NOTE | 2020-04-03 10:06 | NURSING ---
received report from Sukumar DEL CID assuming care of patient at this point
--- NOTE | 2020-04-03 11:16 | PCM.HP.ID ---
Problem List (1) COVID-19 Status: Acute Reason for Consult: covid (+) Consulted by: Dr. Rizzo History of Present Illness: The patient is a 70 year old M presented 04/02 with one day h/o mild RLQ abd pain, fever, n/v. No sick contacts, feels fine, no known covid exposures, has been masking/distancing. No change in taste or smell, no headache, no aches. Saw PCP, had CT, sent to ED, taken to OR by Dr. Waite for gangrenous appendicitis. Small abscesses seen, appendix removed, feeling better today on zosyn, no flatus but having some sips of liquid. No more fever. Covid Ag (+) but PCR neg. In isolation. Full ROS performed and neg except as noted above. - Medical History Past Medical History (Chronic Problems): Chronic Problems (Last Reviewed 04/02/20 @ 20:[address] Farrukh Waite MD) Obstructive sleep apnea (Chronic) High cholesterol (Chronic) Allergies/Adverse Reactions: Allergies No Known Allergies Allergy (Verified 04/02/20 19:28) Home Medications: Ambulatory Orders Medication Instructions Recorded allopurinol 300 mg tablet 1 tab PO DAILY 12/12/19 aspirin 81 mg tablet,delayed 81 mg PO DAILY 12/12/19 release atorvastatin 10 mg tablet 1 tab PO DAILY 12/12/19 wektuaof-cmt-zwoyw acid 300 1 tab PO DAILY 12/12/19 mcg-lycopene 600 mcg-lutein 300 mcg tablet omeprazole 20 mg capsule,delayed 1 tab PO DAILY 12/12/19 release sildenafil 100 mg tablet ea PO 12/12/19 - Social History SMOKING STATUS:: Former smoker Vital Signs Temp Pulse Resp BP Pulse Ox 97.9 F 93 16 119/90 H 93 04/03/20 04:00 04/03/20 09:00 04/03/20 09:00 04/03/20 09:00 04/03/20 09:00 Oxygen Flow Rate (L/min) 2 Oxygen Delivery Method Nasal Cannula Weight: 106.5 kg Body Mass Index (BMI) 31.8 Microbiology Past 72 Hours 04/02/20 Unknown Gram Stain - Final Tissue - Aerobic & Anaerobic Swabs 04/02/20 19:57 SARS-CoV-2 Antigen (Rapid) - Final Mucosa - Nose SARS-CoV-2 (COVID 19) Laboratory Tests Past 24 Hrs 04/03/20 04/03/20 04/03/20 00:30 00:30 00:30 WBC RBC Hgb Hct MCV MCH MCHC RDW Std Deviation RDW Coeff of Usman Plt Count MPV Immature Gran % (Auto) Neut % (Auto) Lymph % (Auto) [place] % (Auto) Eos % (Auto) Baso % (Auto) Absolute Neuts (auto) Absolute Lymphs (auto) Nucleated RBC % Differential Comment PT 14.8 INR 1.2 Fibrinogen 567 H D-Dimer Quant (PE/DVT) 1.47 H* Sodium Potassium Chloride Carbon Dioxide Anion Gap BUN Creatinine Estim Creat Clear Calc Est GFR (MDRD) Af Amer Est GFR (MDRD) Non-Af BUN/Creatinine Ratio Glucose Calcium Total Bilirubin AST ALT Alkaline Phosphatase Lactate Dehydrogenase 190 Total Creatine Kinase 165 C-React Prot Ext Range 140.00 H B-Natriuretic Peptide 255.2 H Total Protein Albumin Globulin Albumin/Globulin Ratio Procalcitonin COVID-19 (PADMINI) 04/03/20 04/03/20 04/03/20 00:30 00:30 05:35 WBC 11.0 RBC 5.10 Hgb 15.4 Hct 44.8 MCV 87.8 MCH 30.2 MCHC 34.4 RDW Std Deviation 44.0 H RDW Coeff of Usman 13.6 Plt Count 197 MPV 8.4 Immature Gran % (Auto) 0.400 Neut % (Auto) 89.3 H Lymph % (Auto) 2.7 L [place] % (Auto) 5.7 Eos % (Auto) 1.8 Baso % (Auto) 0.1 Absolute Neuts (auto) 9.8 H Absolute Lymphs (auto) 0.30 L Nucleated RBC % 0 Differential Comment SCANNED PT INR Fibrinogen D-Dimer Quant (PE/DVT) Sodium Potassium Chloride Carbon Dioxide Anion Gap BUN Creatinine Estim Creat Clear Calc Est GFR (MDRD) Af Amer Est GFR (MDRD) Non-Af BUN/Creatinine Ratio Glucose Calcium Total Bilirubin AST ALT Alkaline Phosphatase Lactate Dehydrogenase Total Creatine Kinase C-React Prot Ext Range B-Natriuretic Peptide Total Protein Albumin Globulin Albumin/Globulin Ratio Procalcitonin 0.12 H COVID-19 (PADMINI) Negative 04/03/20 05:35 WBC RBC Hgb Hct MCV MCH MCHC RDW Std Deviation RDW Coeff of Usman Plt Count MPV Immature Gran % (Auto) Neut % (Auto) Lymph % (Auto) [place] % (Auto) Eos % (Auto) Baso % (Auto) Absolute Neuts (auto) Absolute Lymphs (auto) Nucleated RBC % Differential Comment PT INR Fibrinogen D-Dimer Quant (PE/DVT) Sodium 135 L Potassium 4.2 Chloride 105 Carbon Dioxide 25.0 Anion Gap 5 BUN 21 H Creatinine 1.03 Estim Creat Clear Calc 73.25 Est GFR (MDRD) Af Amer 92 Est GFR (MDRD) Non-Af 76 BUN/Creatinine Ratio 20.4 H Glucose 152 H Calcium 8.3 L Total Bilirubin 1.80 H AST 15 ALT 23 Alkaline Phosphatase 66 Lactate Dehydrogenase Total Creatine Kinase C-React Prot Ext Range B-Natriuretic Peptide Total Protein 6.8 Albumin 3.3 Globulin 3.5 Albumin/Globulin Ratio 0.9 Procalcitonin COVID-19 (PADMINI) - Other Studies Radiology: [] reviewed Other Studies: [] Route of nutrition/ use of supplements: [] Nutritional Intake: [] IV Site: [] Snider Catheter: [] - Physical Exam General: Alert, Oriented x3, Cooperative, No apparent distress HEENT: Atraumatic, PERRLA, EOMI Neck: Supple, No Nodes Lungs: Clear to auscultation, Normal air movement Cardiovascular: Regular rate, Regular Rhythm Abdomen: Soft, Non Tender, Non-Distended Extremities: No edema Skin: No rashes IV Site: Peripheral, without redness Musculoskeletal: No Tenderness to Palpation of Joints or Extremities Neurological: Cranial nerves II-XII grossly intact - Assessment/Plan Antibiotics: [] Assessment/Plan: [] Active and Suspected Problems (Last Reviewed 04/02/20 @ 20:[address] Farrukh Waite MD) Acute appendicitis (Acute) COVID-19 (Acute) Appendicitis (Acute) Appendicitis - now s/p OR 04/[address] Waite for appendectomy. On zosyn. Plan on short course abx. covid (+) Ag - PCR neg, no sx consistent with covid, no exposure history. Appears to be false positive, ok for stopping isolation, and I do not think his needs to be tested at this time. Will follow as needed, d/w nursing. Thank you.
--- NOTE | 2020-04-03 11:38 | PN.SURG_ITS ---
Patient Problems: Active and Suspected Problems (Last Reviewed 04/02/20 @ 20:[address] Farrukh Waite MD) Acute appendicitis (Acute) COVID-19 (Acute) Appendicitis (Acute) Subjective: Patient evaluated resting comfortably in the chair. He denies abdominal discomfort, nausea, vomiting. COVID PCR test was negative. - Physical Exam Vitals/I&O's: Vital Signs Temp Pulse Resp BP Pulse Ox 97.9 F 93 16 119/90 H 93 04/03/20 04:00 04/03/20 09:00 04/03/20 09:00 04/03/20 09:00 04/03/20 09:00 Oxygen Flow Rate (L/min) 2 Oxygen Delivery Method Nasal Cannula Weight: 234 lb 12.677 oz Body Mass Index (BMI) 31.8 Intake and Output for Last 24 Hours 04/01/20 04/02/20 04/03/20 23:59 23:59 23:59 Intake Total 50 / 50 2152 / 2152 Output Total 140 / 140 Balance 50 / 50 2011 General: Alert, Oriented x3, Cooperative Abdomen: Soft, Hypoactive Bowel Sounds, Obese, Tender - slightly near drain, - - Incisions c/d/i. No erythema or infection noted. ZHANE drain intact Microbiology Past 72 Hours 04/02/20 Unknown Tissue - Aerobic & Anaerobic Swabs Gram Stain - Final 04/02/20 19:57 Mucosa - Nose SARS-CoV-2 Antigen (Rapid) - Final SARS-CoV-2 (COVID 19) Laboratory Results 04/03/20 00:30: PT 14.8, INR 1.2, Fibrinogen 567 H, D-Dimer Quant (PE/DVT) 1.47 H* 04/03/20 00:30: Lactate Dehydrogenase 190, Total Creatine Kinase 165, C-React Prot Ext Range 140.00 H 04/03/20 00:30: B-Natriuretic Peptide 255.2 H 04/03/20 00:30: Procalcitonin 0.12 H 04/03/20 00:30: COVID-19 (PADMINI) Negative 04/03/20 05:35: WBC 11.0, RBC 5.10, Hgb 15.4, Hct 44.8, MCV 87.8, MCH 30.2, MCHC 34.4, RDW Std Deviation 44.0 H, RDW Coeff of Usman 13.6, Plt Count 197, MPV 8.4, Immature Gran % (Auto) 0.400, Neut % (Auto) 89.3 H, Lymph % (Auto) 2.7 L, [place] % (Auto) 5.7, Eos % (Auto) 1.8, Baso % (Auto) 0.1, Absolute Neuts (auto) 9.8 H, Absolute Lymphs (auto) 0.30 L, Nucleated RBC % 0, Differential Comment SCANNED 04/03/20 05:35: Sodium 135 L, Potassium 4.2, Chloride 105, Carbon Dioxide 25.0, Anion Gap 5, BUN 21 H, Creatinine 1.03, Estim Creat Clear Calc 73.25, Est GFR (MDRD) Af Amer 92, Est GFR (MDRD) Non-Af 76, BUN/Creatinine Ratio 20.4 H, Glucose 152 H, Calcium 8.3 L, Total Bilirubin 1.80 H, AST 15, ALT 23, Alkaline Phosphatase 66, Total Protein 6.8, Albumin 3.3, Globulin 3.5, Albumin/Globulin Ratio 0.9 Current Medications Acetaminophen (Acetaminophen 325 Mg Tablet) 650 mg PO Q6H PRN PRN PRN Reason: Pain Score 1-10 Al Hydroxide/Mg Hydroxide (Mag Hydrox/Al Hydrox/Simeth 30 Ml Udc) 30 ml PO Q6H PRN PRN PRN Reason: Gastric Burning Allopurinol ([facility]op[facility]ol 300 Mg Tablet) [facility] Last Admin: 04/03/20 08:44 Dose: 300 mg Documented by: Atorvastatin Calcium (Atorvastatin Calcium 10 Mg Tablet) 10 mg PO DAILY@2200 [facility] Bisacodyl (Bisacodyl 5 Mg Tablet) 10 mg PO DAILY PRN PRN PRN Reason: Constipation Enoxaparin Sodium (Enoxaparin 40 Mg/0.4 Ml Syringe) 40 mg SC DAILY [facility] Last Admin: 04/03/20 08:45 Dose: 40 mg Documented by: Hydralazine HCl (Hydralazine 20 Mg/Ml Vial) 10 mg IV Q4H PRN PRN PRN Reason: SBP > 160 Hydromorphone HCl (Hydromorphone 1 Mg/Ml Syringe) 1 - 2 mg IV Q2H PRN PRN PRN Reason: Pain Score 6-10 Sodium Chloride () 1,000 mls @ 100 mls/hr IV .Q10H [facility] Last Admin: 04/03/20 10:38 Dose: 100 mls/hr Documented by: Piperacillin Sod/Tazobactam (Sod 3.375 gm/ Sodium Chloride) 50 mls @ 12.5 mls/hr IV Q8 [facility] Last Infusion: 04/03/20 09:35 Dose: Infused Documented by: Sodium Chloride () 250 mls @ 15 mls/hr IV .[id number] PRN PRN Reason: Saline Flush Morphine Sulfate (Morphine 2 Mg/Ml Syringe) 1 - 2 mg IV Q4H PRN PRN PRN Reason: Pain Score 4-5 Last Admin: 04/03/20 00:59 Dose: 2 mg Documented by: Morphine Sulfate (Morphine 2 Mg/Ml Syringe) 2 - 4 mg IV Q3H PRN PRN PRN Reason: Pain Score 6-10 Ondansetron HCl (Ondansetron 4 Mg/2 Ml Vial) 4 mg IV Q8H PRN PRN PRN Reason: Nausea Oxycodone HCl (Oxycodone 5 Mg Tablet) 5 - 10 mg PO Q4H PRN PRN PRN Reason: Pain Score 1-10 Last Admin: 04/03/20 05:33 Dose: 5 mg Documented by: Pantoprazole Sodium (Pantoprazole Sodium 20 Mg Tablet) 20 mg PO DAILY [facility] Last Admin: 04/03/20 08:44 Dose: 20 mg Documented by: Polyethylene Glycol (Polyethylene Glycol 3350 17 Gm Packet) 17 gm PO DAILY [facility] Last Admin: 04/03/20 08:45 Dose: 17 gm Documented by: Prochlorperazine Edisylate (Prochlorperazine 10 Mg/2 Ml Vial) 10 mg IV Q6H PRN PRN PRN Reason: Nausea/Vomiting Sodium Chloride (0.9% Saline Lock 10 Ml Syringe) 10 - 40 ml IV UD PRN PRN Reason: SALINE FLUSH Last Admin: 04/03/20 10:50 Dose: 10 ml Documented by: Medical Necessity - Tobacco Use Smoking Status: Former smoker - Patient quit cigarette tobacco usage approximately 40 years prior to current presentation with prior to this 1 pack/day since he had been a teenager. Tobacco Use: Non-smoker Assessment/Plan All Active Problems (Last Reviewed 04/02/20 @ 20:[address] Farrukh Waite MD) Acute appendicitis (Acute) COVID-19 (Acute) Appendicitis (Acute) I am following this patient in conjunction with Dr. Waite Impression: S/p laparoscopic appendectomy for gangrenous appendicitis Okay for transfer to med/surg floor Continue antibiotics We will continue to monitor this patient Inpatient E&M: 92102 Subs Hosp L1 - No charge
--- NOTE | 2020-04-03 11:57 | CASEMGMT ---
RN CM Assessment Note Introduced role of CM to patient's . Patient was not able to participate in assessment at this time. Demographics, PCP verified. states prior to admission, the patient was very independent and did not use any DME. Diagnosis: Appendectomy PCP: Dr. Willoughby Specialists: none Insurance: DOMINGUEZ ROJAS Preferred Pharmacy: [facility] Prescription Benefit: yes LNOK: , Laurie Palomino Living Arrangements: Lives independently in home with his . No care needs prior to admission per the . Tranportation: drives or can drive DME: none HHC: none SNF: none Patient DC Goals: home DC Plan: anticipate home on discharge. would like to be taught drain care via phone or on dc if needed. Marleny Charge nurse updated on this request. CM available for discharge planning coordination. Contact CM for any concerns/needs that may arise. Javid CALVO RN ACM
--- NOTE | 2020-04-03 12:11 | NURSING ---
report called to Ej TORRES RN
[2020-04-03] MEDS: Atorvastatin Calcium 10 MG Tablet PO (22:11)
[2020-04-03] MEDS: Tamsulosin HCl 0.4 MG Capsule PO (23:13)
[2020-04-04 04:04] VITALS: BP 134/71; PULSE 92; RESP 16; TEMP 36.9; O2SAT 95
[2020-04-04] MEDS: 0.9% Normal Saline 1,000 ML 100 ML IV ×2 (05:58→14:59)
[2020-04-04 07:48] VITALS: BP 135/80; PULSE 87; RESP 18; TEMP 36.8; O2SAT 96
[2020-04-04 07:55] VITALS: O2SAT 96
[2020-04-04] MEDS: Enoxaparin 40 MG/0.4 ML Syringe SC (08:01)
[2020-04-04] MEDS: Pantoprazole Sodium 20 MG Tablet PO (08:01)
[2020-04-04] MEDS: Allopurinol 300 MG Tablet PO (08:02)
[2020-04-04] MEDS: Polyethylene Glycol 3350 17 GM PACKET PO (08:02)
--- NOTE | 2020-04-04 08:10 | NURSING ---
Assisted to chair. Encouraged pt to walk halls like he did yesterday and use his I.S. Call light and urinal in reach.
[2020-04-04 08:26] LABS: Absolute Neutrophil Count 12.1 X10^3/uL (2.0-7.7); Basophil# 0.03 X10^3/uL; Basophil% 0.2 % (0-1); Eosinophil# 0.01 X10^3/uL; Eosinophils% 0.1 % (0-5); Hemoglobin 18.7 g/dL (13.0-16.5); Lymphocyte % 5.1 % (19-41); Mean Corp Hgb Conc 31.5 g/dL (32-36); Mean Corpuscular Hgb 29.1 pg (27.0-32.0); Mean Corpuscular Volume 92.4 fL (80-94); Mean Platelet Vol. 9.4 fl (6.2-12.0); Monocyte# 0.77 X10^3/uL; Monocyte% 5.6 % (0-10); NRBC Flagged by Analyzer 0 % (0-5); Neutrophil # 12.13 X10^3/uL (2.7-7.7); Neutrophil % 87.9 % (47-70); Platelet Count 261 K/mm3 (150-450); RBC Distribution Width CV 13.8 % (11.6-14.6); RBC Distribution Width SD 47.1 fl (35.1-43.9); Red Blood Count 6.43 M/mm3 (4.6-6.2); White Blood Count 13.8 K/mm3 (4.4-11.0)
[2020-04-04 08:43] LABS: ALB/GLOB Ratio 1.1 RATIO (0.9-2.4); AST(SGOT) 20 U/L (15-37); Alanine Aminotransfer ALT/SGPT 21 U/L (16-61); Albumin, Serum 3.5 g/dL (3.2-5.0); Alkaline Phosphatase 69 U/L (45-117); Anion Gap 7 (5-15); BUN 22 mg/dL (7-18); Calcium,Total 8.5 mg/dL (8.5-10.1); Chloride 106 mmol/L (98-107); EST Glomerular Filtration Rate 70 mL/min (>60); Est Glom Filt Rate - Afr Amer 85 mL/min (>60); Estimated Creatinine Clearance 68.59 ml/min; Globulin 3.3 g/dL (2.2-4.2); Glucose 139 mg/dL (74-106); Potassium 4.9 mmol/L (3.5-5.1); Protein, Total 6.8 g/dL (6.4-8.2); Sodium Level 134 mmol/L (136-145)
[2020-04-04 08:44] LABS: Hematocrit 59.4 % (40-54)
--- NOTE | 2020-04-04 10:03 | PCM.PN.SRG ---
Patient Problems: Active and Suspected Problems (Last Reviewed 04/02/20 @ 20:[address] Farrukh Waite MD) Acute appendicitis (Acute) COVID-19 (Acute) Appendicitis (Acute) Subjective: Patient evaluated resting comfortably in bed. He notes minimal amount of abdominal discomfort. He denies nausea, vomiting. He is tolerating clear liquids well. Negative flatus and BM. - Physical Exam Vitals/I&O's: Vital Signs Temp Pulse Resp BP Pulse Ox 98.2 F 87 18 135/80 H 96 04/04/20 07:48 04/04/20 07:48 04/04/20 07:48 04/04/20 07:48 04/04/20 07:48 Oxygen Flow Rate (L/min) 2 Oxygen Delivery Method Room Air Weight: 236 lb 1.841 oz Body Mass Index (BMI) 31.8 Intake and Output for Last 24 Hours 04/02/20 04/03/20 04/04/20 23:59 23:59 23:59 Intake Total 50 / 50 3402 / 3402 1460 / 1460 Output Total 1308 / 1308 1350 / 1350 Balance 50 / 50 2094 / 2094 110 / 110 General: Alert, Oriented x3, Cooperative Abdomen: Soft, Hypoactive Bowel Sounds, Distended, Obese, - - Incisions c/d/i. No erythema or infection noted. ZHANE drain intact. Microbiology Past 72 Hours 04/02/20 Unknown Tissue - Aerobic & Anaerobic Swabs Gram Stain - Final 04/02/20 Unknown Tissue - Aerobic & Anaerobic Swabs Wound Culture - Preliminary GNR lactose sky line yarder 04/02/20 19:57 Mucosa - Nose SARS-CoV-2 Antigen (Rapid) - Final SARS-CoV-2 (COVID 19) Laboratory Results 04/04/20 08:00: WBC 13.8 H, RBC 6.43 H, Hgb 18.7 H*, Hct 59.4 H, MCV 92.4 D, MCH 29.1, MCHC 31.5 L D, RDW Std Deviation 47.1 H, RDW Coeff of Usman 13.8, Plt Count 261, MPV 9.4, Immature Gran % (Auto) 1.100 H, Neut % (Auto) 87.9 H, Lymph % (Auto) 5.1 L, [place] % (Auto) 5.6, Eos % (Auto) 0.1, Baso % (Auto) 0.2, Absolute Neuts (auto) 12.1 H, Absolute Lymphs (auto) 0.70 L, Nucleated RBC % 0, Diff Path Review September04/04/20 08:00: Sodium 134 L, Potassium 4.9, Chloride 106, Carbon Dioxide 21.0, Anion Gap 7, BUN 22 H, Creatinine 1.10, Estim Creat Clear Calc 68.59, Est GFR (MDRD) Af Amer 85, Est GFR (MDRD) Non-Af 70, BUN/Creatinine Ratio 20.0, Glucose 139 H, Calcium 8.5, Magnesium 2.0, Total Bilirubin 2.00 H, AST 20, ALT 21, Alkaline Phosphatase 69, Total Protein 6.8, Albumin 3.5, Globulin 3.3, Albumin/Globulin Ratio 1.1 Current Medications Acetaminophen (Acetaminophen 325 Mg Tablet) 650 mg PO Q6H PRN PRN PRN Reason: Pain Score 1-10 Al Hydroxide/Mg Hydroxide (Mag Hydrox/Al Hydrox/Simeth 30 Ml Udc) 30 ml PO Q6H PRN PRN PRN Reason: Gastric Burning [facility]op[facility]ol ([facility] 300 Mg Tablet) [facility] Last Admin: 04/04/20 08:02 Dose: 300 mg Documented by: Atorvastatin Calcium (Atorvastatin Calcium 10 Mg Tablet) 10 mg PO DAILY@2200 [facility] Last Admin: 04/03/20 22:11 Dose: 10 mg Documented by: Bisacodyl (Bisacodyl 5 Mg Tablet) 10 mg PO DAILY PRN PRN PRN Reason: Constipation Enoxaparin Sodium (Enoxaparin 40 Mg/0.4 Ml Syringe) 40 mg SC DAILY [facility] Last Admin: 04/04/20 08:01 Dose: 40 mg Documented by: Hydralazine HCl (Hydralazine 20 Mg/Ml Vial) 10 mg IV Q4H PRN PRN PRN Reason: SBP > 160 Hydromorphone HCl (Hydromorphone 1 Mg/Ml Syringe) 1 - 2 mg IV Q2H PRN PRN PRN Reason: Pain Score 6-10 Sodium Chloride () 1,000 mls @ 100 mls/hr IV .Q10H [facility] Last Admin: 04/04/20 05:58 Dose: 100 mls/hr Documented by: Piperacillin Sod/Tazobactam (Sod 3.375 gm/ Sodium Chloride) 50 mls @ 12.5 mls/hr IV Q8 [facility] Last Admin: 04/04/20 05:58 Dose: 12.5 mls/hr Documented by: Sodium Chloride () 250 mls @ 15 mls/hr IV .[id number] PRN PRN Reason: Saline Flush Morphine Sulfate (Morphine 2 Mg/Ml Syringe) 1 - 2 mg IV Q4H PRN PRN PRN Reason: Pain Score 4-5 Last Admin: 04/03/20 00:59 Dose: 2 mg Documented by: Morphine Sulfate (Morphine 2 Mg/Ml Syringe) 2 - 4 mg IV Q3H PRN PRN PRN Reason: Pain Score 6-10 Ondansetron HCl (Ondansetron 4 Mg/2 Ml Vial) 4 mg IV Q8H PRN PRN PRN Reason: Nausea Oxycodone HCl (Oxycodone 5 Mg Tablet) 5 - 10 mg PO Q4H PRN PRN PRN Reason: Pain Score 1-10 Last Admin: 04/03/20 05:33 Dose: 5 mg Documented by: Pantoprazole Sodium (Pantoprazole Sodium 20 Mg Tablet) 20 mg PO DAILY [facility] Last Admin: 04/04/20 08:01 Dose: 20 mg Documented by: Polyethylene Glycol (Polyethylene Glycol 3350 17 Gm Packet) 17 gm PO DAILY [facility] Last Admin: 04/04/20 08:02 Dose: 17 gm Documented by: Prochlorperazine Edisylate (Prochlorperazine 10 Mg/2 Ml Vial) 10 mg IV Q6H PRN PRN PRN Reason: Nausea/Vomiting Sodium Chloride (0.9% Saline Lock 10 Ml Syringe) 10 - 40 ml IV UD PRN PRN Reason: SALINE FLUSH Last Admin: 04/03/20 10:50 Dose: 10 ml Documented by: Tamsulosin HCl (Tamsulosin Hcl 0.4 Mg Capsule) 0.4 mg PO DAILY@1730 [facility] Last Admin: 04/03/20 23:13 Dose: 0.4 mg Documented by: Medical Necessity - Tobacco Use Smoking Status: Former smoker - Patient quit cigarette tobacco usage approximately 40 years prior to current presentation with prior to this 1 pack/day since he had been a teenager. Tobacco Use: Non-smoker Assessment/Plan All Active Problems (Last Reviewed 04/02/20 @ 20:[address] Farrukh Waite MD) Acute appendicitis (Acute) COVID-19 (Acute) Appendicitis (Acute) I am following this patient in conjunction with Dr. Waite Impression: S/p laparoscopic appendectomy for gangrenous appendicitis Continue antibiotics Increase to full liquids at lunch Await culture results We will continue to monitor this patient Inpatient E&M: 57622 Subs Hosp L1 - No charge
--- NOTE | 2020-04-04 12:01 | PN_ITS ---
Patient Problems: Active and Suspected Problems (Last Reviewed 04/02/20 @ 20:[address] Farrukh Waite MD) Acute appendicitis (Acute) COVID-19 (Acute) Appendicitis (Acute) Reason for Visit: Follow-up for gangrenous appendicitis complicated with localized peritonitis Objective: Seen and examined. Mild right lower quadrant abdominal discomfort. Patient passed slight amount of flatus but not bowel movement yet. No nausea or vomiting. Clear liquid started. Patient is still has ZHANE drain and small amount of serosanguineous fluid, mainly serous nature. No fever or chills. General: Alert, Oriented x3, Cooperative HEENT: Atraumatic, PERRLA, EOMI, Normocephalic Oral: No Gingival or Mucosal Lesions/ Ulcerations Neck: Supple, No JVD, Negative Carotid Bruits Lungs: Air entry diminished in bilateral lung bases. No crepitation/rhonchi Cardiovascular: Regular rate, Regular Rhythm, Normal S1, Normal S2, No murmurs Abdomen: Soft, mild tenderness on right lower quadrant on deep palpation. Bowel sounds present but sluggish. Nondistended. ZHANE drain serosanguineous fluid. : No renal angle tenderness. No suprapubic tenderness. Extremities: No edema, Capillary Refill Less than 3 Seconds Skin: No rashes, No breakdown Musculoskeletal: No Tenderness to Palpation of Joints or Extremities Neurological: Cranial nerves II-XII grossly intact, Deep Tendon Reflexes 2+/4 and Symmetrical, Neuro grossly intact Psych/Mental Status: Normal Affect, Appropriate. Vitals/I&O's: Vital Signs Temp Pulse Resp BP Pulse Ox 98.2 F 87 18 135/80 H 96 04/04/20 07:48 04/04/20 07:48 04/04/20 07:48 04/04/20 07:48 04/04/20 07:55 Oxygen Flow Rate (L/min) 2 Oxygen Delivery Method Room Air Weight: 236 lb 1.841 oz Body Mass Index (BMI) 31.8 Intake and Output for Last 24 Hours 04/02/20 04/03/20 04/04/20 23:59 23:59 23:59 Intake Total 50 / 50 3402 / 3402 1510 / 1510 Output Total 1308 / 1308 1350 / 1350 Balance 50 / 50 2094 / 2094 160 / 160 Microbiology Past 72 Hours 04/02/20 Unknown Tissue - Aerobic & Anaerobic Swabs Gram Stain - Final 04/02/20 Unknown Tissue - Aerobic & Anaerobic Swabs Wound Culture - Preliminary GNR 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 law 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 04/02/20 19:57 Mucosa - Nose SARS-CoV-2 Antigen (Rapid) - Final SARS-CoV-2 (COVID 19) Laboratory Results 04/04/20 08:00: WBC 13.8 H, RBC 6.43 H, Hgb 18.7 H*, Hct 59.4 H, MCV 92.4 D, MCH 29.1, MCHC 31.5 L D, RDW Std Deviation 47.1 H, RDW Coeff of Usman 13.8, Plt Count 261, MPV 9.4, Immature Gran % (Auto) 1.100 H, Neut % (Auto) 87.9 H, Lymph % (Auto) 5.1 L, [place] % (Auto) 5.6, Eos % (Auto) 0.1, Baso % (Auto) 0.2, Absolute Neuts (auto) 12.1 H, Absolute Lymphs (auto) 0.70 L, Nucleated RBC % 0, Diff Path Review September04/04/20 08:00: Sodium 134 L, Potassium 4.9, Chloride 106, Carbon Dioxide 21.0, Anion Gap 7, BUN 22 H, Creatinine 1.10, Estim Creat Clear Calc 68.59, Est GFR (MDRD) Af Amer 85, Est GFR (MDRD) Non-Af 70, BUN/Creatinine Ratio 20.0, Glucose 139 H, Calcium 8.5, Magnesium 2.0, Total Bilirubin 2.00 H, AST 20, ALT 21, Alkaline Phosphatase 69, Total Protein 6.8, Albumin 3.5, Globulin 3.3, Albumin/Globulin Ratio 1.1 Current Medications Acetaminophen (Acetaminophen 325 Mg Tablet) 650 mg PO Q6H PRN PRN PRN Reason: Pain Score 1-10 Al Hydroxide/Mg Hydroxide (Mag Hydrox/Al Hydrox/Simeth 30 Ml Udc) 30 ml PO Q6H PRN PRN PRN Reason: Gastric Burning Allopurinol ([facility] 300 Mg Tablet) [facility] Last Admin: 04/04/20 08:02 Dose: 300 mg Documented by: Atorvastatin Calcium (Atorvastatin Calcium 10 Mg Tablet) 10 mg PO DAILY@2200 [facility] Last Admin: 04/03/20 22:11 Dose: 10 mg Documented by: Bisacodyl (Bisacodyl 5 Mg Tablet) 10 mg PO DAILY PRN PRN PRN Reason: Constipation Enoxaparin Sodium (Enoxaparin 40 Mg/0.4 Ml Syringe) 40 mg SC DAILY [facility] Last Admin: 04/04/20 08:01 Dose: 40 mg Documented by: Hydralazine HCl (Hydralazine 20 Mg/Ml Vial) 10 mg IV Q4H PRN PRN PRN Reason: SBP > 160 Hydromorphone HCl (Hydromorphone 1 Mg/Ml Syringe) 1 - 2 mg IV Q2H PRN PRN PRN Reason: Pain Score 6-10 Sodium Chloride () 1,000 mls @ 100 mls/hr IV .Q10H [facility] Last Admin: 04/04/20 05:58 Dose: 100 mls/hr Documented by: Piperacillin Sod/Tazobactam (Sod 3.375 gm/ Sodium Chloride) 50 mls @ 12.5 mls/hr IV Q8 [facility] Last Infusion: 04/04/20 10:00 Dose: Infused Documented by: Sodium Chloride () 250 mls @ 15 mls/hr IV .[id number] PRN PRN Reason: Saline Flush Morphine Sulfate (Morphine 2 Mg/Ml Syringe) 1 - 2 mg IV Q4H PRN PRN PRN Reason: Pain Score 4-5 Last Admin: 04/03/20 00:59 Dose: 2 mg Documented by: Morphine Sulfate (Morphine 2 Mg/Ml Syringe) 2 - 4 mg IV Q3H PRN PRN PRN Reason: Pain Score 6-10 Ondansetron HCl (Ondansetron 4 Mg/2 Ml Vial) 4 mg IV Q8H PRN PRN PRN Reason: Nausea Oxycodone HCl (Oxycodone 5 Mg Tablet) 5 - 10 mg PO Q4H PRN PRN PRN Reason: Pain Score 1-10 Last Admin: 04/03/20 05:33 Dose: 5 mg Documented by: Pantoprazole Sodium (Pantoprazole Sodium 20 Mg Tablet) 20 mg PO DAILY [facility] Last Admin: 04/04/20 08:01 Dose: 20 mg Documented by: Polyethylene Glycol (Polyethylene Glycol 3350 17 Gm Packet) 17 gm PO DAILY [facility] Last Admin: 04/04/20 08:02 Dose: 17 gm Documented by: Prochlorperazine Edisylate (Prochlorperazine 10 Mg/2 Ml Vial) 10 mg IV Q6H PRN PRN PRN Reason: Nausea/Vomiting Sodium Chloride (0.9% Saline Lock 10 Ml Syringe) 10 - 40 ml IV UD PRN PRN Reason: SALINE FLUSH Last Admin: 04/03/20 10:50 Dose: 10 ml Documented by: Tamsulosin HCl (Tamsulosin Hcl 0.4 Mg Capsule) 0.4 mg PO DAILY@1730 [facility] Last Admin: 04/03/20 23:13 Dose: 0.4 mg Documented by: Medical Necessity - Tobacco Use Smoking Status: Former smoker - Patient quit cigarette tobacco usage approximately 40 years prior to current presentation with prior to this 1 pack/day since he had been a teenager. Tobacco Use: Non-smoker Assessment/Plan All Active Problems (Last Reviewed 04/02/20 @ 20:[address] Farrukh Waite MD) Acute appendicitis (Acute) COVID-19 (Acute) Appendicitis (Acute) The patient is a 70 y/o M WITH HISTORY OF PORTILLO was admitted with 48 hours of f ever, malaise, right lower quadrant abdominal pain associated with nausea, occasional vomiting and loose stool and CT abdomen and pelvis with IV contrast findings consistent with severe appendicitis but without perforation or abscess. 1. Acute Sepsis secondary to Acute complicated retrocecal appendicitis with gangrene and localized peritonitis without perforation: Operative note reviewed. ZHANE drain in place. On IV antibiotic Zosyn. Monitor intake and output, drain output. Rest as per surgeon Dr. Waite recommendation. Incentive spirometry. Patient in ICU stable to be transferred to MedSur floor. 04/04: On MedSurg floor. ZHANE drain output about 50 mL mainly serosanguineous in nature. Was 258 mL yesterday. 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 Continue IV Zosyn. Seen by surgeon. On clear liquid diet. K4.9. H&H 18.7/59.4 probably mainly hemoconcentration. Continue IV fluid. Mild leukocytosis 13.8 thousand. 2. False positive COVID-19 rapid antigen test: Patient has symptomatology and clinical features of acute complicated appendicitis at the time of admission. No lymphopenia. Initially, rapid COVID-19 screening antigen test was positive but more reliable COVID-19 PCR came negative. COVID-19 ruled out by ID and tablet tester and COVID-19 precaution discontinued 3. Elevated BP without hypertensive diagnosis: Blood pressure is controlled. Need further outpatient follow-up. Patient is on as needed IV hydralazine Outpatient further follow-up ED evaluation with elevated blood pressures above goal, continue to monitor, add oral regimen if appropriate, as needed IV hydralazine in interim. 4. Gout: Continue home allopurinol regimen. 5. Hyperlipidemia: Continued home statin regimen. 6. PORTILLO: continue CPAP nightly. 7. GERD: Home PPI continued. 8. DVT prophylaxis: Enoxaparin 40 mg daily. 9. 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 law 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 04/02/20 19:57 Mucosa - Nose SARS-CoV-2 Antigen (Rapid) - Final SARS-CoV-2 (COVID 19) Laboratory Results 04/04/20 08:00: WBC 13.8 H, RBC 6.43 H, Hgb 18.7 H*, Hct 59.4 H, MCV 92.4 D, MCH 29.1, MCHC 31.5 L D, RDW Std Deviation 47.1 H, RDW Coeff of Usman 13.8, Plt Count 261, MPV 9.4, Immature Gran % (Auto) 1.100 H, Neut % (Auto) 87.9 H, Lymph % (Auto) 5.1 L, [place] % (Auto) 5.6, Eos % (Auto) 0.1, Baso % (Auto) 0.2, Absolute Neuts (auto) 12.1 H, Absolute Lymphs (auto) 0.70 L, Nucleated RBC % 0, Diff Path Review September04/04/20 08:00: Sodium 134 L, Potassium 4.9, Chloride 106, Carbon Dioxide 21.0, Anion Gap 7, BUN 22 H, Creatinine 1.10, Estim Creat Clear Calc 68.59, Est GFR (MDRD) Af Amer 85, Est GFR (MDRD) Non-Af 70, BUN/Creatinine Ratio 20.0, Glucose 139 H, Calcium 8.5, Magnesium 2.0, Total Bilirubin 2.00 H, AST 20, ALT 21, Alkaline Phosphatase 69, Total Protein 6.8, Albumin 3.5, Globulin 3.3, Albumin/Globulin Ratio 1.1 Inpatient E&M: 26553 Subs Hosp L2
[2020-04-04 13:55] VITALS: BP 143/73; PULSE 86; RESP 20; TEMP 37.1; O2SAT 97
[2020-04-04] MEDS: Tamsulosin HCl 0.4 MG Capsule PO (17:16)
[2020-04-04 20:44] VITALS: BP 138/83; PULSE 85; RESP 17; TEMP 36.6; O2SAT 97
[2020-04-04] MEDS: Atorvastatin Calcium 10 MG Tablet PO (20:56)
[2020-04-05] MEDS: 0.9% Normal Saline 1,000 ML 100 ML IV (00:22)
[2020-04-05 02:23] VITALS: BP 143/72; PULSE 82; RESP 18; TEMP 37.1; O2SAT 95
[2020-04-05 06:02] LABS: Absolute Neutrophil Count 4.6 X10^3/uL (2.0-7.7); Basophil# 0.02 X10^3/uL; Basophil% 0.3 % (0-1); Eosinophil# 0.12 X10^3/uL; Eosinophils% 1.9 % (0-5); Hematocrit 38.8 % (40-54); Hemoglobin 12.8 g/dL (13.0-16.5); Lymphocyte % 14.3 % (19-41); Mean Corpuscular Hgb 29.9 pg (27.0-32.0); Mean Corpuscular Volume 90.7 fL (80-94); Mean Platelet Vol. 8.6 fl (6.2-12.0); Monocyte# 0.61 X10^3/uL; Monocyte% 9.7 % (0-10); NRBC Flagged by Analyzer 0 % (0-5); Neutrophil # 4.61 X10^3/uL (2.7-7.7); Neutrophil % 73.3 % (47-70); Platelet Count 230 K/mm3 (150-450); RBC Distribution Width CV 13.7 % (11.6-14.6); RBC Distribution Width SD 45.7 fl (35.1-43.9); Red Blood Count 4.28 M/mm3 (4.6-6.2); White Blood Count 6.3 K/mm3 (4.4-11.0)
[2020-04-05 06:34] LABS: ALB/GLOB Ratio 0.7 RATIO (0.9-2.4); AST(SGOT) 18 U/L (15-37); Alanine Aminotransfer ALT/SGPT 22 U/L (16-61); Albumin, Serum 2.4 g/dL (3.2-5.0); Alkaline Phosphatase 63 U/L (45-117); Anion Gap 4 (5-15); BUN 18 mg/dL (7-18); BUN/Creat Ratio 16.7 RATIO (10-20); Calcium,Total 8.1 mg/dL (8.5-10.1); Chloride 109 mmol/L (98-107); Creatinine, Serum 1.08 mg/dL (0.70-1.30); EST Glomerular Filtration Rate 72 mL/min (>60); Est Glom Filt Rate - Afr Amer 87 mL/min (>60); Estimated Creatinine Clearance 69.86 ml/min; Globulin 3.3 g/dL (2.2-4.2); Glucose 99 mg/dL (74-106); Potassium 3.4 mmol/L (3.5-5.1); Protein, Total 5.7 g/dL (6.4-8.2); Sodium Level 140 mmol/L (136-145)
[2020-04-05 08:20] VITALS: BP 148/85; PULSE 88; RESP 16; TEMP 37.2; O2SAT 94
[2020-04-05] MEDS: Enoxaparin 40 MG/0.4 ML Syringe SC (08:52)
[2020-04-05] MEDS: Polyethylene Glycol 3350 17 GM PACKET PO (08:52)
[2020-04-05] MEDS: Allopurinol 300 MG Tablet PO (08:52)
[2020-04-05] MEDS: Pantoprazole Sodium 20 MG Tablet PO (08:52)
[2020-04-05 11:03] LABS: Pathologist Review Reviewed
--- NOTE | 2020-04-05 14:25 | PCM.PN.SRG ---
Patient Problems: Active and Suspected Problems (Last Reviewed 04/02/20 @ 20:[address] Farrukh Waite MD) Acute appendicitis (Acute) COVID-19 (Acute) Appendicitis (Acute) Subjective: Patient evaluated. Denies abdominal pain, nausea, vomiting. Culture returned as E coli. ZHANE drain intact - Physical Exam Vitals/I&O's: Vital Signs Temp Pulse Resp BP Pulse Ox 99.0 F 88 16 148/85 H 94 04/05/20 08:20 04/05/20 08:20 04/05/20 08:20 04/05/20 08:20 04/05/20 08:20 Oxygen Flow Rate (L/min) 2 Oxygen Delivery Method Room Air Weight: 236 lb 12.8 oz Body Mass Index (BMI) 31.8 Intake and Output for Last 24 Hours 04/03/20 04/04/20 04/05/20 23:59 23:59 23:59 Intake Total 3402 / 3402 3131.92 / 3631.92 3175.58 / 3175.58 Output Total 1308 / 1308 2035 / 2955 2230 / 2230 Balance 2094 / 2094 1096.92 / 676.92 945.58 / 945.58 General: Alert, Oriented x3, Cooperative Abdomen: Soft, Non Tender, Obese, - - Incisions c/d/i. No erythema or infection noted. ZHANE drain intact Microbiology Past 72 Hours 04/02/20 Unknown Tissue - Aerobic & Anaerobic Swabs Gram Stain - Final 04/02/20 Unknown Tissue - Aerobic & Anaerobic Swabs Wound Culture - Final Escherichia coli 04/02/20 Unknown Tissue - Aerobic & Anaerobic Swabs Anaerobic Culture - Preliminary Checking for anaerobes, further studies to follow. 04/02/20 19:57 Mucosa - Nose SARS-CoV-2 Antigen (Rapid) - Final SARS-CoV-2 (COVID 19) Laboratory Results 04/04/20 08:00: Diff Path Review Reviewed 04/05/20 05:45: WBC 6.3, RBC 4.28 L, Hgb 12.8 L, Hct 38.8 L, MCV 90.7, MCH 29.9, MCHC 33.0, RDW Std Deviation 45.7 H, RDW Coeff of Usman 13.7, Plt Count 230, MPV 8.6, Immature Gran % (Auto) 0.500, Neut % (Auto) 73.3 H, Lymph % (Auto) 14.3 L, Power % (Auto) 9.7, Eos % (Auto) 1.9, Baso % (Auto) 0.3, Absolute Neuts (auto) 4.6, Absolute Lymphs (auto) 0.90, Nucleated RBC % 0 04/05/20 05:45: Sodium 140, Potassium 3.4 L, Chloride 109 H, Carbon Dioxide 27.0, Anion Gap 4 L, BUN 18, Creatinine 1.08, Estim Creat Clear Calc 69.86, Est GFR (MDRD) Af Amer 87, Est GFR (MDRD) Non-Af 72, BUN/Creatinine Ratio 16.7, Glucose 99, Calcium 8.1 L, Total Bilirubin 1.80 H, AST 18, ALT 22, Alkaline Phosphatase 63, Total Protein 5.7 L, Albumin 2.4 L, Globulin 3.3, Albumin/Globulin Ratio 0.7 L Current Medications Acetaminophen (Acetaminophen 325 Mg Tablet) 650 mg PO Q6H PRN PRN PRN Reason: Pain Score 1-10 Al Hydroxide/Mg Hydroxide (Mag Hydrox/Al Hydrox/Simeth 30 Ml Udc) 30 ml PO Q6H PRN PRN PRN Reason: Gastric Burning Allopurinol ([facility] 300 Mg [facility]t) [facility] Last Admin: 04/05/20 08:52 Dose: 300 mg Documented by: Atorvastatin Calcium (Atorvastatin Calcium 10 Mg Tablet) 10 mg PO DAILY@2200 [facility] Last Admin: 04/04/20 20:56 Dose: 10 mg Documented by: Bisacodyl (Bisacodyl 5 Mg Tablet) 10 mg PO DAILY PRN PRN PRN Reason: Constipation Enoxaparin Sodium (Enoxaparin 40 Mg/0.4 Ml Syringe) 40 mg SC DAILY [facility] Last Admin: 04/05/20 08:52 Dose: 40 mg Documented by: Hydralazine HCl (Hydralazine 20 Mg/Ml Vial) 10 mg IV Q4H PRN PRN PRN Reason: SBP > 160 Hydromorphone HCl (Hydromorphone 1 Mg/Ml Syringe) 1 - 2 mg IV Q2H PRN PRN PRN Reason: Pain Score 6-10 Sodium Chloride () 250 mls @ 15 mls/hr IV .[id number] PRN PRN Reason: Saline Flush Last Infusion: 04/05/20 01:29 Dose: 0 mls/hr Documented by: Levofloxacin (Levofloxacin 750 Mg Tablet) 750 mg PO DAILY@0600 [facility] Oxycodone HCl (Oxycodone 5 Mg Tablet) 5 - 10 mg PO Q4H PRN PRN PRN Reason: Pain Score 1-10 Last Admin: 04/03/20 05:33 Dose: 5 mg Documented by: Pantoprazole Sodium (Pantoprazole Sodium 20 Mg Tablet) 20 mg PO DAILY [facility] Last Admin: 04/05/20 08:52 Dose: 20 mg Documented by: Polyethylene Glycol (Polyethylene Glycol 3350 17 Gm Packet) 17 gm PO DAILY [facility] Last Admin: 04/05/20 08:52 Dose: 17 gm Documented by: Potassium Chloride (Potassium Chloride 20 Meq Tablet) [facility] Stop: 04/07/20 08:01 Last Admin: 04/05/20 08:52 Dose: 40 meq Documented by: Prochlorperazine Edisylate (Prochlorperazine 10 Mg/2 Ml Vial) 10 mg IV Q6H PRN PRN PRN Reason: Nausea/Vomiting Sodium Chloride (0.9% Saline Lock 10 Ml Syringe) 10 - 40 ml IV UD PRN PRN Reason: SALINE FLUSH Last Admin: 04/03/20 10:50 Dose: 10 ml Documented by: Tamsulosin HCl (Tamsulosin Hcl 0.4 Mg Capsule) 0.4 mg PO DAILY@1730 [facility] Last Admin: 04/04/20 17:16 Dose: 0.4 mg Documented by: Medical Necessity - Tobacco Use Smoking Status: Former smoker - Patient quit cigarette tobacco usage approximately 40 years prior to current presentation with prior to this 1 pack/day since he had been a teenager. Tobacco Use: Non-smoker Assessment/Plan All Active Problems (Last Reviewed 04/02/20 @ 20:[address] Farrukh Waite MD) Acute appendicitis (Acute) COVID-19 (Acute) Appendicitis (Acute) I am following this patient in conjunction with Dr. Waite Impression: S/p laparoscopic appendectomy for gangrenous appendicitis Start patient on Levaquin starting tomorrow Increase to full liquids at lunch We will continue to monitor this patient Hopeful discharge tomorrow Inpatient E&M: [id number] [facility] Hosp L1 - no charge
[2020-04-05 14:35] VITALS: BP 124/82; PULSE 90; RESP 16; TEMP 36.9; O2SAT 99
[2020-04-05] MEDS: Bisacodyl 5 MG Tablet 10 MG PO (14:46)
--- NOTE | 2020-04-05 15:59 | PCM.PN.HOSP ---
Patient Problems: Active and Suspected Problems (Last Reviewed 04/02/20 @ 20:[address] Farrukh Waite MD) Acute appendicitis (Acute) COVID-19 (Acute) Appendicitis (Acute) Reason for Visit: Follow-up for gangrenous appendicitis with localized peritonitis Objective: No fever or chills. Heart rate and blood pressure controlled. ZHANE drainage amount 105 mL since morning a.m., mainly serous. It was 135 mm yesterday. Patient passing flatus but no bowel movement yet Physical exam General: Alert, Oriented x3, Cooperative HEENT: Atraumatic, PERRLA, EOMI, Normocephalic Oral: No Gingival or Mucosal Lesions/ Ulcerations Neck: Supple, No JVD, Negative Carotid Bruits Lungs: Air entry equal in bilateral lung bases. No crepitation/rhonchi Cardiovascular: Regular rate, Regular Rhythm, Normal S1, Normal S2, No murmurs Abdomen: Soft, nondistended, mild deep tenderness on perioperative region, expected. Surgical dressing is dry. ZHANE drain output mainly serous. Bowel Sounds Present. : No renal angle tenderness. No suprapubic tenderness. Extremities: No edema, Capillary Refill Less than 3 Seconds Skin: No rashes, No breakdown Musculoskeletal: No Tenderness to Palpation of Joints or Extremities Neurological: Cranial nerves II-XII grossly intact, Deep Tendon Reflexes 2+/4 and Symmetrical, Neuro grossly intact Psych/Mental Status: Normal Affect, Appropriate. Vitals/I&O's: Vital Signs Temp Pulse Resp BP Pulse Ox 98.5 F 90 16 124/82 H 99 04/05/20 14:35 04/05/20 14:35 04/05/20 14:35 04/05/20 14:35 04/05/20 14:35 Oxygen Flow Rate (L/min) 2 Oxygen Delivery Method Room Air Weight: 236 lb 12.8 oz Body Mass Index (BMI) 31.8 Intake and Output for Last 24 Hours 04/03/20 04/04/20 04/05/20 23:59 23:59 23:59 Intake Total 3402 / 3402 3131.92 / 3631.92 3271.58 / 3271.58 Output Total 1308 / 1308 2035 / 2955 2230 / 2230 Balance 2094 / 2094 1096.92 / 676.92 1041.58 / 1041.58 Microbiology Past 72 Hours 04/02/20 Unknown Tissue - Aerobic & Anaerobic Swabs Gram Stain - Final 04/02/20 Unknown Tissue - Aerobic & Anaerobic Swabs Wound Culture - Final Escherichia coli 04/02/20 Unknown Tissue - Aerobic & Anaerobic Swabs Anaerobic Culture - Preliminary Checking for anaerobes, further studies to follow. 04/02/20 19:57 Mucosa - Nose SARS-CoV-2 Antigen (Rapid) - Final SARS-CoV-2 (COVID 19) Laboratory Results 04/04/20 08:00: Diff Path Review Reviewed 04/05/20 05:45: WBC 6.3, RBC 4.28 L, Hgb 12.8 L, Hct 38.8 L, MCV 90.7, MCH 29.9, MCHC 33.0, RDW Std Deviation 45.7 H, RDW Coeff of Usman 13.7, Plt Count 230, MPV 8.6, Immature Gran % (Auto) 0.500, Neut % (Auto) 73.3 H, Lymph % (Auto) 14.3 L, [place] % (Auto) 9.7, Eos % (Auto) 1.9, Baso % (Auto) 0.3, Absolute Neuts (auto) 4.6, Absolute Lymphs (auto) 0.90, Nucleated RBC % 0 04/05/20 05:45: Sodium 140, Potassium 3.4 L, Chloride 109 H, Carbon Dioxide 27.0, Anion Gap 4 L, BUN 18, Creatinine 1.08, Estim Creat Clear Calc 69.86, Est GFR (MDRD) Af Amer 87, Est GFR (MDRD) Non-Af 72, BUN/Creatinine Ratio 16.7, Glucose 99, Calcium 8.1 L, Total Bilirubin 1.80 H, AST 18, ALT 22, Alkaline Phosphatase 63, Total Protein 5.7 L, Albumin 2.4 L, Globulin 3.3, Albumin/Globulin Ratio 0.7 L Current Medications Acetaminophen (Acetaminophen 325 Mg Tablet) 650 mg PO Q6H PRN PRN PRN Reason: Pain Score 1-10 Al Hydroxide/Mg Hydroxide (Mag Hydrox/Al Hydrox/Simeth 30 Ml Udc) 30 ml PO Q6H PRN PRN PRN Reason: Gastric Burning Allopurinol (Allopurinol 300 Mg Tablet) 300 mg PO DAILYCM [facility] Last Admin: 04/05/20 08:52 Dose: 300 mg Documented by: Atorvastatin Calcium (Atorvastatin Calcium 10 Mg Tablet) 10 mg PO DAILY@2200 [facility] Last Admin: 04/04/20 20:56 Dose: 10 mg Documented by: Bisacodyl (Bisacodyl 5 Mg Tablet) 10 mg PO DAILY PRN PRN PRN Reason: Constipation Last Admin: 04/05/20 14:46 Dose: 10 mg Documented by: Enoxaparin Sodium (Enoxaparin 40 Mg/0.4 Ml Syringe) 40 mg SC DAILY [facility] Last Admin: 04/05/20 08:52 Dose: 40 mg Documented by: Hydralazine HCl (Hydralazine 20 Mg/Ml Vial) 10 mg IV Q4H PRN PRN PRN Reason: SBP > 160 Hydromorphone HCl (Hydromorphone 1 Mg/Ml Syringe) 1 - 2 mg IV Q2H PRN PRN PRN Reason: Pain Score 6-10 Sodium Chloride () 250 mls @ 15 mls/hr IV .[id number] PRN PRN Reason: Saline Flush Last Infusion: 04/05/20 15:03 Dose: Infused Documented by: Levofloxacin (Levofloxacin 750 Mg Tablet) 750 mg PO DAILY@0600 [facility] Oxycodone HCl (Oxycodone 5 Mg Tablet) 5 - 10 mg PO Q4H PRN PRN PRN Reason: Pain Score 1-10 Last Admin: 04/03/20 05:33 Dose: 5 mg Documented by: Pantoprazole Sodium (Pantoprazole Sodium 20 Mg Tablet) 20 mg PO DAILY [facility] Last Admin: 04/05/20 08:52 Dose: 20 mg Documented by: Polyethylene Glycol (Polyethylene Glycol 3350 17 Gm Packet) 17 gm PO DAILY [facility] Last Admin: 04/05/20 08:52 Dose: 17 gm Documented by: Potassium Chloride (Potassium Chloride 20 Meq Tablet) [facility] Stop: 04/07/20 08:01 Last Admin: 04/05/20 08:52 Dose: 40 meq Documented by: Prochlorperazine Edisylate (Prochlorperazine 10 Mg/2 Ml Vial) 10 mg IV Q6H PRN PRN PRN Reason: Nausea/Vomiting Sodium Chloride (0.9% Saline Lock 10 Ml Syringe) 10 - 40 ml IV UD PRN PRN Reason: SALINE FLUSH Last Admin: 04/03/20 10:50 Dose: 10 ml Documented by: Tamsulosin HCl (Tamsulosin Hcl 0.4 Mg Capsule) 0.4 mg PO DAILY@1730 [facility] Last Admin: 04/04/20 17:16 Dose: 0.4 mg Documented by: STROKE Vital Signs/Narrative: Vital Signs Temp Pulse Resp BP Pulse Ox 04/05/20 14:35 98.5 F 90 16 124/82 H 99 Medical Necessity - Tobacco Use Smoking Status: Former smoker - Patient quit cigarette tobacco usage approximately 40 years prior to current presentation with prior to this 1 pack/day since he had been a teenager. Tobacco Use: Non-smoker Assessment/Plan All Active Problems (Last Reviewed 04/02/20 @ 20:[address] Farrukh Waite MD) Acute appendicitis (Acute) COVID-19 (Acute) Appendicitis (Acute) The patient is a 70 y/o M WITH HISTORY OF PORTILLO was admitted with 48 hours of fever, malaise, right lower quadrant abdominal pain associated with nausea, occasional vomiting and loose stool and CT abdomen and pelvis with IV contrast findings consistent with severe appendicitis but without perforation or abscess. 1. Acute Sepsis secondary to Acute complicated retrocecal appendicitis with gangrene and localized peritonitis without perforation: Operative note reviewed. ZHANE drain in place. On IV antibiotic Zosyn. Monitor intake and output, drain output. Rest as per surgeon Dr. Waite recommendation. Incentive spirometry. Patient in ICU stable to be transferred to MedSurg floor. 04/04: On MedSurg floor. ZHANE drain output about 50 mL mainly serosanguineous in nature. Was 258 mL yesterday. Intra-Op tissue fluid is growing gram-negative ward lactose rfid strategist. Continue IV Zosyn. Seen by surgeon. On clear liquid diet. K4.9. H&H 18.7/59.4 probably mainly hemoconcentration. Continue IV fluid. Mild leukocytosis 13.8 thousand. 04/05: Leukocytosis has resolved. Tissue culture shows E. coli, pansensitive. Antibiotic changed to Levaquin from tomorrow a.m. by surgeon. Expect discharge tomorrow a.m. H&H 12.8/38.8, with IV fluid. Serum sodium 140, K3.4. IV fluid discontinued. Patient on full liquid diet. Patient seems mild fluid overload with mild ankle swelling. Patient states he has varicose pain and chronic ankle swelling and declined for Lasix now. PT and OT. 2. False positive COVID-19 rapid antigen test: Patient has symptomatology and clinical features of acute complicated appendicitis at the time of admission. No lymphopenia. Initially, rapid COVID-19 screening antigen test was positive but more reliable COVID-19 PCR came negative. COVID-19 ruled out by ID and thermal cutting tracer machine operator and COVID-19 precaution discontinued 3. Elevated BP without hypertensive diagnosis: Blood pressure is controlled. Need further outpatient follow-up. Patient is on as needed IV hydralazine Outpatient further follow-up ED evaluation with elevated blood pressures above goal, continue to monitor, add oral regimen if appropriate, as needed IV hydralazine in interim. 4. Gout: Continue home allopurinol regimen. 5. Hyperlipidemia: Continued home statin regimen. 6. PORTILLO: continue CPAP nightly. 7. GERD: Home PPI continued. 8. DVT prophylaxis: Enoxaparin 40 mg daily. 9. CODE status: Full code Microbiology Past 72 Hours 04/02/20 Unknown Tissue - Aerobic & Anaerobic Swabs Gram Stain - Final 04/02/20 Unknown Tissue - Aerobic & Anaerobic Swabs Wound Culture - Final Escherichia coli 04/02/20 Unknown Tissue - Aerobic & Anaerobic Swabs Anaerobic Culture - Preliminary Checking for anaerobes, further studies to follow. 04/02/20 19:57 Mucosa - Nose SARS-CoV-2 Antigen (Rapid) - Final SARS-CoV-2 (COVID 19) Laboratory Results 04/04/20 08:00: Diff Path Review Reviewed 04/05/20 05:45: WBC 6.3, RBC 4.28 L, Hgb 12.8 L, Hct 38.8 L, MCV 90.7, MCH 29.9, MCHC 33.0, RDW Std Deviation 45.7 H, RDW Coeff of Usman 13.7, Plt Count 230, MPV 8.6, Immature Gran % (Auto) 0.500, Neut % (Auto) 73.3 H, Lymph % (Auto) 14.3 L, [place] % (Auto) 9.7, Eos % (Auto) 1.9, Baso % (Auto) 0.3, Absolute Neuts (auto) 4.6, Absolute Lymphs (auto) 0.90, Nucleated RBC % 0 04/05/20 05:45: Sodium 140, Potassium 3.4 L, Chloride 109 H, Carbon Dioxide 27.0, Anion Gap 4 L, BUN 18, Creatinine 1.08, Estim Creat Clear Calc 69.86, Est GFR (MDRD) Af Amer 87, Est GFR (MDRD) Non-Af 72, BUN/Creatinine Ratio 16.7, Glucose 99, Calcium 8.1 L, Total Bilirubin 1.80 H, AST 18, ALT 22, Alkaline Phosphatase 63, Total Protein 5.7 L, Albumin 2.4 L, Globulin 3.3, Albumin/Globulin Ratio 0.7 L Inpatient E&M: 80159 Subs Hosp L2
[2020-04-05] MEDS: levoFLOXacin 750 MG Tablet PO (16:53)
[2020-04-05] MEDS: Tamsulosin HCl 0.4 MG Capsule PO (16:53)
[2020-04-05 20:30] VITALS: BP 158/87; PULSE 87; RESP 16; TEMP 37.1; O2SAT 97
[2020-04-05] MEDS: Atorvastatin Calcium 10 MG Tablet PO (21:12)
[2020-04-06] MEDS: levoFLOXacin 750 MG Tablet PO (05:57)
[2020-04-06 06:09] VITALS: BP 138/96; PULSE 84; RESP 16; TEMP 36.8; O2SAT 96
[2020-04-06 07:39] VITALS: PULSE 80
[2020-04-06] MEDS: Enoxaparin 40 MG/0.4 ML Syringe SC (07:44)
[2020-04-06] MEDS: Pantoprazole Sodium 20 MG Tablet PO (07:45)
[2020-04-06] MEDS: Polyethylene Glycol 3350 17 GM PACKET PO (07:46)
[2020-04-06] MEDS: Allopurinol 300 MG Tablet PO (07:46)
[2020-04-06 08:19] VITALS: O2SAT 97
--- NOTE | 2020-04-06 08:52 | DCINST_ITS ---
Discharge Diet: Light diet - advance as tolerated - if you have questions about your diet instructions, please talk to you doctor. Discharge Activity: May Not Drive - for 3-5 days or while taking narcotic pain meds. May shower in (days): 1 Call your doctor if your incision/area has: Continuous Slow Oozing, Sudden Increased Bleeding, Increased Pain/ Swelling, Increased Redness, Foul Smelling Discharge Call your doctor if you observe: Fever of 101 or Higher Suture Line Care: Avoid Pulling/Pushing, Avoid Pinching/Bending Additional Dressing/Incision Instructions:: Keep dressing clean and dry. Change or remove dressing in 2 days. Leave steri strips for 1 week. May protect with a gauze bandaid. Medications to take at Discharge allopurinol 300 mg tablet 1 tab PO DAILY 12/12/19 aspirin 81 mg tablet,delayed release 81 mg PO DAILY 12/12/19 atorvastatin 10 mg tablet 1 tab PO DAILY 12/12/19 clcsordr-kpa-nvqcr acid 300 mcg-lycopene 600 mcg-lutein 300 mcg tablet 1 tab PO DAILY 12/12/19 omeprazole 20 mg capsule,delayed release 1 tab PO DAILY 12/12/19 sildenafil 100 mg tablet ea PO 12/12/19 Oxycodone HCl/Acetaminophen [Percocet 5/325] 1 - 2 tablet PO Q4H PRN PRN 6 Days #30 tablet 04/06/20 levoFLOXacin tablet [Levaquin tablet] 500 mg PO DAILY 6 Days #6 tab 04/06/20 Allergies/Adverse Reactions: Allergies No Known Allergies Allergy (Verified 04/02/20 19:28) The following prescriptions were given: levoFLOXacin tablet [Levaquin tablet] 500 mg PO DAILY 6 Days #6 tab [facility]: [facility] Oxycodone HCl/Acetaminophen [Percocet 5/325] 1 - 2 tablet PO Q4H PRN PRN 6 Days #30 tablet PRN Reason: Pain Transmission Status: [facility] by [facility] Primary Care Physician: Seng Willoughby MD [Primary Care Provider] - Test Results: Test results from this visit will be discussed in further detail at your follow- up appointment, if applicable. Please Follow Up With: Farrukh Waite MD - [phone] When: Call to make a follow up appointment with your doctor in 1 week.
--- NOTE | 2020-04-06 08:53 | PCM.PN.SRG ---
Patient Problems: Active and Suspected Problems (Last Reviewed 04/02/20 @ 20:[address] Farrukh Waite MD) Acute appendicitis (Acute) COVID-19 (Acute) Appendicitis (Acute) Subjective: Doing well no complaints this morning Objective: ZHANE drain has significantly cleared up and was subsequently removed - Physical Exam Vitals/I&O's: Vital Signs Temp Pulse Resp BP Pulse Ox 98.3 F 80 16 138/96 H 96 04/06/20 06:09 04/06/20 07:39 04/06/20 06:09 04/06/20 06:09 04/06/20 06:09 Oxygen Flow Rate (L/min) 2 Oxygen Delivery Method Room Air Weight: 236 lb 12.8 oz Body Mass Index (BMI) 31.8 Intake and Output for Last 24 Hours 04/04/20 04/05/20 04/06/20 23:59 23:59 23:59 Intake Total 3131.92 / 3631.92 3671.58 / 4121.58 1050 / 1050 Output Total 2035 / 2955 2595 / 2595 1330 / 1330 Balance 1096.92 / 676.92 1076.58 / 1526.58 -280 / -280 Microbiology Past 72 Hours 04/02/20 Unknown Tissue - Aerobic & Anaerobic Swabs Gram Stain - Final 04/02/20 Unknown Tissue - Aerobic & Anaerobic Swabs Wound Culture - Final Escherichia coli 04/02/20 Unknown Tissue - Aerobic & Anaerobic Swabs Anaerobic Culture - Preliminary Checking for anaerobes, further studies to follow. Laboratory Results 04/04/20 08:00: Diff Path Review Reviewed Current Medications Acetaminophen (Acetaminophen 325 Mg Tablet) 650 mg PO Q6H PRN PRN PRN Reason: Pain Score 1-10 Al Hydroxide/Mg Hydroxide (Mag Hydrox/Al Hydrox/Simeth 30 Ml Udc) 30 ml PO Q6H PRN PRN PRN Reason: Gastric Burning Allopurinol (Allopurinol 300 Mg Tablet) 300 mg PO DAILYCM [facility] Last Admin: 04/06/20 07:46 Dose: 300 mg Documented by: Atorvastatin Calcium (Atorvastatin Calcium 10 Mg Tablet) 10 mg PO DAILY@2200 [facility] Last Admin: 04/05/20 21:12 Dose: 10 mg Documented by: Bisacodyl (Bisacodyl 5 Mg Tablet) 10 mg PO DAILY PRN PRN PRN Reason: Constipation Last Admin: 04/05/20 14:46 Dose: 10 mg Documented by: Enoxaparin Sodium (Enoxaparin 40 Mg/0.4 Ml Syringe) 40 mg SC DAILY [facility] Last Admin: 04/06/20 07:44 Dose: 40 mg Documented by: Hydralazine HCl (Hydralazine 20 Mg/Ml Vial) 10 mg IV Q4H PRN PRN PRN Reason: SBP > 160 Hydromorphone HCl (Hydromorphone 1 Mg/Ml Syringe) 1 - 2 mg IV Q2H PRN PRN PRN Reason: Pain Score 6-10 Sodium Chloride () 250 mls @ 15 mls/hr IV .[id number] PRN PRN Reason: Saline Flush Last Infusion: 04/05/20 15:03 Dose: Infused Documented by: Levofloxacin (Levofloxacin 750 Mg Tablet) 750 mg PO DAILY@0600 [facility] Last Admin: 04/06/20 05:57 Dose: 750 mg Documented by: Oxycodone HCl (Oxycodone 5 Mg Tablet) 5 - 10 mg PO Q4H PRN PRN PRN Reason: Pain Score 1-10 Last Admin: 04/03/20 05:33 Dose: 5 mg Documented by: Pantoprazole Sodium (Pantoprazole Sodium 20 Mg Tablet) 20 mg PO DAILY [facility] Last Admin: 04/06/20 07:45 Dose: 20 mg Documented by: Polyethylene Glycol (Polyethylene Glycol 3350 17 Gm Packet) 17 gm PO DAILY [facility] Last Admin: 04/06/20 07:46 Dose: 17 gm Documented by: Potassium Chloride (Potassium Chloride 20 Meq Tablet) [facility] Stop: 04/07/20 08:01 Last Admin: 04/06/20 07:44 Dose: 40 meq Documented by: Prochlorperazine Edisylate (Prochlorperazine 10 Mg/2 Ml Vial) 10 mg IV Q6H PRN PRN PRN Reason: Nausea/Vomiting Sodium Chloride (0.9% Saline Lock 10 Ml Syringe) 10 - 40 ml IV UD PRN PRN Reason: SALINE FLUSH Last Admin: 04/03/20 10:50 Dose: 10 ml Documented by: Tamsulosin HCl (Tamsulosin Hcl 0.4 Mg Capsule) 0.4 mg PO DAILY@1730 [facility] Last Admin: 04/05/20 16:53 Dose: 0.4 mg Documented by: Medical Necessity - Tobacco Use Smoking Status: Former smoker - Patient quit cigarette tobacco usage approximately 40 years prior to current presentation with prior to this 1 pack/day since he had been a teenager. Tobacco Use: Non-smoker Assessment/Plan All Active Problems (Last Reviewed 04/02/20 @ 20:[address] Farrukh Waite MD) Acute appendicitis (Acute) COVID-19 (Acute) Appendicitis (Acute) Okay to be discharged.
[2020-04-06 09:39] LABS: Anion Gap 6 (5-15); BUN 16 mg/dL (7-18); BUN/Creat Ratio 15.2 RATIO (10-20); Chloride 106 mmol/L (98-107); Creatinine, Serum 1.05 mg/dL (0.70-1.30); EST Glomerular Filtration Rate 74 mL/min (>60); Est Glom Filt Rate - Afr Amer 90 mL/min (>60); Estimated Creatinine Clearance 71.85 ml/min; Glucose 147 mg/dL (74-106); Magnesium 2.1 mg/dL (1.6-2.6); Potassium 3.6 mmol/L (3.5-5.1); Sodium Level 137 mmol/L (136-145)
[2020-04-06 09:42] VITALS: BP 138/83; PULSE 88; RESP 18; TEMP 37; O2SAT 97
--- NOTE | 2020-04-06 10:30 | PN_ITS ---
Patient Problems: Active and Suspected Problems (Last Reviewed 04/02/20 @ 20:[address] Farrukh Waite MD) Acute appendicitis (Acute) COVID-19 (Acute) Appendicitis (Acute) Reason for Visit: Follow-up for gangrenous appendicitis with localized peritonitis. Objective: Patient heart rate and blood pressure is good. No fever. Not much collection in ZHANE drain therefore it was removed by the surgeon. Physical exam Physical exam General: Alert, Oriented x3, Cooperative HEENT: Atraumatic, PERRLA, EOMI, Normocephalic Oral: No Gingival or Mucosal Lesions/ Ulcerations Neck: Supple, No JVD, Negative Carotid Bruits Lungs: Air entry equal in bilateral lung bases. No crepitation/rhonchi Cardiovascular: Regular rate, Regular Rhythm, Normal S1, Normal S2, No murmurs Abdomen: Soft, nondistended, mild deep tenderness on perioperative region, expected. Surgical dressing is dry. ZHANE drain was just 30 mL and removed. : No renal angle tenderness. No suprapubic tenderness. Extremities: No edema, Capillary Refill Less than 3 Seconds Skin: No rashes, No breakdown Musculoskeletal: No Tenderness to Palpation of Joints or Extremities Neurological: Cranial nerves II-XII grossly intact, Deep Tendon Reflexes 2+/4 and Symmetrical, Neuro grossly intact Psych/Mental Status: Normal Affect, Appropriate. Vitals/I&O's: Vital Signs Temp Pulse Resp BP Pulse Ox 98.6 F 88 18 138/83 H 97 04/06/20 09:42 04/06/20 09:42 04/06/20 09:42 04/06/20 09:42 04/06/20 09:42 Oxygen Flow Rate (L/min) 2 Oxygen Delivery Method Room Air Weight: 236 lb 12.8 oz Body Mass Index (BMI) 31.8 Intake and Output for Last 24 Hours 04/04/20 04/05/20 04/06/20 23:59 23:59 23:59 Intake Total 3131.92 / 3631.92 3671.58 / 4121.58 1050 / 1050 Output Total 2035 / 2955 2595 / 2595 1330 / 1330 Balance 1096.92 / 676.92 1076.58 / 1526.58 -280 / -280 Microbiology Past 72 Hours 04/02/20 Unknown Tissue - Aerobic & Anaerobic Swabs Gram Stain - Final 04/02/20 Unknown Tissue - Aerobic & Anaerobic Swabs Wound Culture - Final Escherichia coli 04/02/20 Unknown Tissue - Aerobic & Anaerobic Swabs Anaerobic Culture - Preliminary Checking for anaerobes, further studies to follow. Laboratory Results 04/04/20 08:00: Diff Path Review Reviewed 04/06/20 08:02: Sodium 137, Potassium 3.6, Chloride 106, Carbon Dioxide 25.0, Anion Gap 6, BUN 16, Creatinine 1.05, Estim Creat Clear Calc 71.85, Est GFR (MDRD) Af Amer 90, Est GFR (MDRD) Non-Af 74, BUN/Creatinine Ratio 15.2, Glucose 147 H, Calcium 9.0, Magnesium 2.1 STROKE Vital Signs/Narrative: Vital Signs Temp Pulse Resp BP Pulse Ox 04/06/20 09:42 98.6 F 88 18 138/83 H 97 04/06/20 08:19 97 04/06/20 07:39 80 Medical Necessity - Tobacco Use Smoking Status: Former smoker - Patient quit cigarette tobacco usage approximately 40 years prior to current presentation with prior to this 1 pack/day since he had been a teenager. Tobacco Use: Non-smoker Assessment/Plan All Active Problems (Last Reviewed 04/02/20 @ 20:[address] Farrukh Waite MD) Acute appendicitis (Acute) COVID-19 (Acute) Appendicitis (Acute) The patient is a 70 y/o M WITH HISTORY OF PORTILLO was admitted with 48 hours of fever, malaise, right lower quadrant abdominal pain associated with nausea, occasional vomiting and loose stool and CT abdomen and pelvis with IV contrast findings consistent with severe appendicitis but without perforation or abscess. 1. Acute Sepsis secondary to Acute complicated retrocecal appendicitis with gangrene and E. coli localized peritonitis without perforation: Operative note reviewed. ZHANE drain in place. On IV antibiotic Zosyn. Monitor intake and output, drain output. Rest as per surgeon Dr. Waite recommendation. Incentive spirometry. [facility] On [facility] floor. ZHANE drain output about 50 mL mainly serosanguineous in nature. Was 258 mL yesterday. 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 Continue IV Zosyn. Seen by surgeon. On clear liquid diet. K4.9. H&H 18.7/59.4 probably mainly hemoconcentration. Continue IV fluid. Mild leukocytosis 13.8 thousand. 04/05: Leukocytosis has resolved. Tissue culture shows E. coli, pansensitive. Antibiotic changed to Levaquin from tomorrow a.m. by surgeon. Expect discharge tomorrow a.m. H&H 12.8/38.8, with IV fluid. Serum sodium 140, K3.4. IV fluid discontinued. Patient on full liquid diet. Patient seems mild fluid overload with mild ankle swelling. Patient states he has varicose pain and chronic ankle swelling and declined for Lasix now. PT and OT. 04/06: K3.6. Magnesium 2.1. Patient medically stable for discharge. 2. False positive COVID-19 rapid antigen test: Patient has symptomatology and clinical features of acute complicated appendicitis at the time of admission. No lymphopenia. Initially, rapid COVID-19 screening antigen test was positive but more reliable COVID-19 PCR came negative. 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 Elevated BP without hypertensive diagnosis: Blood pressure is controlled. Need further outpatient follow-up. Patient is on as needed IV hydralazine Outpatient further follow-up ED evaluation with elevated blood pressures above goal, continue to monitor, add oral regimen if appropriate, as needed IV hydralazine in interim. 4. Gout: Continue home allopurinol regimen. 5. Hyperlipidemia: Continued home statin regimen. 6. PORTILLO: continue CPAP nightly. 7. GERD: Home PPI continued. 8. DVT prophylaxis: Enoxaparin 40 mg daily. 9. CODE status: Full code Patient was discharged home. Follow-up for PCP and surgeon Dr. Waite as directed in discharge instructions Microbiology Past 72 Hours 04/02/20 Unknown Tissue - Aerobic & Anaerobic Swabs Gram Stain - Final 04/02/20 Unknown Tissue - Aerobic & Anaerobic Swabs Wound Culture - Final Escherichia coli 04/02/20 Unknown Tissue - Aerobic & Anaerobic Swabs Anaerobic Culture - Preliminary Checking for anaerobes, further studies to follow. Laboratory Results 04/06/20 08:02: Sodium 137, Potassium 3.6, Chloride 106, Carbon Dioxide 25.0, Anion Gap 6, BUN 16, Creatinine 1.05, Estim Creat Clear Calc 71.85, Est GFR (MDRD) Af Amer 90, Est GFR (MDRD) Non-Af 74, BUN/Creatinine Ratio 15.2, Glucose 147 H, Calcium 9.0, Magnesium 2.1 Inpatient E&M: 77787 Subs Hosp L2
--- NOTE | 2020-04-16 09:52 | DS.PCM_ITS ---
Discharge Date and Diagnosis - Problem List Patient Problems: Active and Suspected Problems (Last Reviewed 04/02/20 @ 20:[address] Farrukh Waite MD) Acute appendicitis (Acute) COVID-19 (Acute) Appendicitis (Acute) Date of Admission: 04/02/20 Date of Discharge: 04/06/20 - Primary Discharge Diagnosis Acute Problems: Active Problems (Last Reviewed 04/02/20 @ 20:[address] Farrukh Waite MD) Acute appendicitis (Acute) Appendicitis (Acute) - Secondary Discharge Diagnosis Chronic Problems: Chronic Problems (Last Reviewed 04/02/20 @ 20:[address] Farrukh Waite MD) Obstructive sleep apnea (Chronic) High cholesterol (Chronic) Hospital Course and Treatment Operations: appendectomy Procedures: None Summary of Care Provided: The patient is a 70 year old M who presented with abdominal pain. Patient had CT scan of ab/pel as an outpatient from his PCP's office which demonstrated severe acute appendicitis. Dr. Waite performed a laparoscopic appendectomy on 04/02/20. Patient's AG COVID test which returned positive and a follow-up PCR test was negative. Isolation was discontinued. Patient was moved from ICU to med/surg floor. Patient had IV antibiotics for multiple days due to severity of appendicitis. Patient's hospitalization was otherwise uncomplicated. Upon discharge, patient was tolerating diet well. Minimal amount of abdominal pain. ZHANE drain was removed 04/06. Negative nausea, vomiting, fever. Patient to follow- up with PCP for new hypertension noted during his hospitalization. Patient Problems: Active and Suspected Problems (Last Reviewed 04/02/20 @ 20:[address] Farrukh Waite MD) Acute appendicitis (Acute) COVID-19 (Acute) Appendicitis (Acute) - Physical Exam Vitals/I&O's: Vital Signs Temp Pulse Resp BP Pulse Ox 98.6 F 88 18 138/83 H 97 04/06/20 09:42 04/06/20 09:42 04/06/20 09:42 04/06/20 09:42 04/06/20 09:42 Oxygen Flow Rate (L/min) 2 Oxygen Delivery Method Room Air Weight: 236 lb 12.8 oz Body Mass Index (BMI) 31.8 General: Alert, Oriented x3, Cooperative Abdomen: Soft, Non Tender, Obese, - - Incisions c/d/i. No erythema or infection noted. Discharge Diet: Light diet - advance as tolerated - if you have questions about your diet instructions, please talk to you doctor. Discharge Activity: May Not Drive - for 3-5 days or while taking narcotic pain meds. May shower in (days): 1 Call your doctor if your incision/area has: Continuous Slow Oozing, Sudden Increased Bleeding, Increased Pain/ Swelling, Increased Redness, Foul Smelling Discharge Call your doctor if you observe: Fever of 101 or Higher Suture Line Care: Avoid Pulling/Pushing, Avoid Pinching/Bending Additional Dressing/Incision Instructions:: Keep dressing clean and dry. Change or remove dressing in 2 days. Leave steri strips for 1 week. May protect with a gauze bandaid. Home Medications: Medications to take at Discharge allopurinol 300 mg tablet 1 tab PO DAILY 12/12/19 aspirin 81 mg tablet,delayed release 81 mg PO DAILY 12/12/19 atorvastatin 10 mg tablet 1 tab PO DAILY 12/12/19 amcprlak-mwp-bhrvh acid 300 mcg-lycopene 600 mcg-lutein 300 mcg tablet 1 tab PO DAILY 12/12/19 omeprazole 20 mg capsule,delayed release 1 tab PO DAILY 12/12/19 sildenafil 100 mg tablet ea PO 12/12/19 Primary Care Physician: Seng Willoughby MD [Primary Care Provider] - Please Follow Up With: Farrukh Waite MD - [phone] When: Call to make a follow up appointment with your doctor in 1 week. Disposition: Home Minutes spent on discharge:: 20 Patient Condition:: Stable Medical Necessity - Tobacco Use Smoking Status: Former smoker - Patient quit cigarette tobacco usage approximately 40 years prior to current presentation with prior to this 1 pack/day since he had been a teenager. Tobacco Use: Non-smoker Meaningful Use Info Meaningful Use Diagnoses (Choose all that apply): None applicable Inpatient E&M: 96807 Disch Hosp - No charge
== END 2020-04-06 10:23 | disposition home or self-care (01) | DRG 854 ==
LOC: ED 21:09 → SDC 21:50 → ICU 21:51 → SDC 04-03 08:32 → ICU 04-03 08:32 → MS3 04-03 12:39
PROVIDERS: Family Medicine; Admitting Provider Surgery; Emergency Provider Emergency Medicine; PCP Family Medicine; Visit Provider Internal Medicine
PROC: 0DTJ4ZZ Resection of Appendix, Percutaneous Endoscopic Approach (ICD-10-PCS; CPT 44970; principal; 2020-04-02 21:30)
DX: A41.51 Sepsis due to Escherichia coli [E. coli] (principal); K35.31 Acute appendicitis with localized peritonitis and gangrene, without perforation; K38.1 Appendicular concretions; K58.9 Irritable bowel syndrome, unspecified; E78.00 Pure hypercholesterolemia, unspecified; G47.33 Obstructive sleep apnea (adult) (pediatric); I10 Essential (primary) hypertension; K21.9 Gastro-esophageal reflux disease without esophagitis; M10.9 Gout, unspecified; M25.473 Effusion, unspecified ankle; Z87.891 Personal history of nicotine dependence; Z85.828 Personal history of other malignant neoplasm of skin; Z79.82 Long term (current) use of aspirin; Z79.899 Other long term (current) drug therapy
CPT/HCPCS: 36415; 74177; 80048; 80053; 82550; 83615; 83735; 83880; 84145; 85025; 85379; 85384; 85610; 86140; 87070; 87075; 87077; 87186; 87205; 87426; 87635; 88304; 93005; 99283; J7030; J7050; Q9967; A4216; C1760; J2405; U0002

== ENCOUNTER → 2020-04-17 16:27 | Outpatient (CLI) | payer MEDICARE, OTHER, SELFPAY ==
[2020-04-03 00:21] VITALS: BMI 31.8
[2020-04-17 17:48] LABS: Absolute Lymphocyte Count 1.86 X10^3/uL (0.83-4.51); Absolute Neutrophil Count 4.8 X10^3/uL (2.0-7.7); Basophil# 0.08 X10^3/uL; Basophil% 1.1 % (0-1); Eosinophil# 0.12 X10^3/uL; Eosinophils% 1.6 % (0-5); Hematocrit 44.9 % (40-54); Hemoglobin 14.8 g/dL (13.0-16.5); Lymphocyte # 1.86 X10^3/ul (4.0); Lymphocyte % 24.5 % (19-41); Mean Corpuscular Hgb 30.3 pg (27.0-32.0); Mean Platelet Vol. 8.5 fl (6.2-12.0); Monocyte# 0.63 X10^3/uL; Monocyte% 8.3 % (0-10); NRBC Flagged by Analyzer 0 % (0-5); Neutrophil # 4.82 X10^3/uL (2.7-7.7); Neutrophil % 63.3 % (47-70); Platelet Count 523 K/mm3 (150-450); RBC Distribution Width CV 13.1 % (11.6-14.6); RBC Distribution Width SD 44.5 fl (35.1-43.9); Red Blood Count 4.88 M/mm3 (4.6-6.2); White Blood Count 7.6 K/mm3 (4.4-11.0)
[2020-04-17 18:11] LABS: Hemoglobin A1c 5.5 % (3.8-5.6)
[2020-04-17 18:12] LABS: Anion Gap 5 (5-15); BUN 17 mg/dL (7-18); BUN/Creat Ratio 14.2 RATIO (10-20); Calcium,Total 9.4 mg/dL (8.5-10.1); Chloride 107 mmol/L (98-107); EST Glomerular Filtration Rate 64 mL/min (>60); Est Glom Filt Rate - Afr Amer 77 mL/min (>60); Glucose 89 mg/dL (74-106); Potassium 4.1 mmol/L (3.5-5.1); Sodium Level 139 mmol/L (136-145)
== END ==
PROVIDERS: PCP Family Medicine; Referring Provider Family Medicine; Visit Provider Family Medicine
DX: E87.6 Hypokalemia (principal); D72.829 Elevated white blood cell count, unspecified; R73.09 Other abnormal glucose
CPT/HCPCS: 36415; 80048; 83036; 85025

== ENCOUNTER → 2020-04-24 10:51 | Outpatient (CLI) | payer MEDICARE, OTHER, SELFPAY ==
[2020-04-03 00:21] VITALS: BMI 31.8
--- NOTE | 2020-04-24 10:53 | US_ITS ---
STUDY: ULTRASOUND - URINARY BLADDER REASON FOR EXAM: Male, 70 years old. Urinary retention TECHNIQUE: Ultrasound evaluation of the urinary bladder was performed with real-time and static pak-scale imaging. COMPARISON: None. FINDINGS: There is no right UVJ calculus. There is a visualized right ureteral jet. There is no left UVJ calculus. There is a visualized left ureteral jet. The distended volume of the urinary bladder is 212 ml. The empty volume of the urinary bladder is 44 ml. The bladder wall is within normal limits. The bladder wall measures 2 mm. There is no demonstrated bladder wall mass lesion. There are no demonstrated bladder calculi. Findings suggestive of a 2.7 cm x 2.5 cm x 2.1 cm prostate nodule. US/Post Void Residual Bladder IMPRESSION: Normal ultrasound of the urinary bladder. Electronically Signed: Adan Morgan, at 13:52 EST , Service support ,
== END ==
PROVIDERS: PCP Family Medicine; Referring Provider Family Medicine; Visit Provider Family Medicine
DX: R33.9 Retention of urine, unspecified (principal)
CPT/HCPCS: 51798

== ENCOUNTER → 2020-05-03 14:45 | Outpatient (CLI) | payer MEDICARE, OTHER, SELFPAY ==
[2020-04-03 00:21] VITALS: BMI 31.8
[2020-05-03 18:19] LABS: PSA,Total- Diagnostic 5.68 ng/mL (0.0-4.0)
== END ==
PROVIDERS: PCP Family Medicine; Referring Provider Nurse Practitioner Adult Health; Visit Provider Nurse Practitioner Adult Health
DX: R93.49 Abnormal radiologic findings on diagnostic imaging of other urinary organs (principal); R35.0 Frequency of micturition
CPT/HCPCS: 36415; 84153

== ENCOUNTER → 2020-05-15 14:45 | Outpatient (CLI) | payer MEDICARE, OTHER, SELFPAY ==
[2020-04-03 00:21] VITALS: BMI 31.8
[2020-05-15 18:09] LABS: Absolute Lymphocyte Count 1.59 X10^3/uL (0.83-4.51); Absolute Neutrophil Count 5.1 X10^3/uL (2.0-7.7); Basophil# 0.07 X10^3/uL; Basophil% 0.9 % (0-1); Eosinophil# 0.24 X10^3/uL; Eosinophils% 3.1 % (0-5); Hematocrit 45.2 % (40-54); Hemoglobin 14.4 g/dL (13.0-16.5); Lymphocyte # 1.59 X10^3/ul (4.0); Lymphocyte % 20.7 % (19-41); Mean Corp Hgb Conc 31.9 g/dL (32-36); Mean Corpuscular Hgb 28.8 pg (27.0-32.0); Mean Corpuscular Volume 90.4 fL (80-94); Mean Platelet Vol. 8.3 fl (6.2-12.0); Monocyte% 7.8 % (0-10); NRBC Flagged by Analyzer 0 % (0-5); Neutrophil # 5.14 X10^3/uL (2.7-7.7); Neutrophil % 66.8 % (47-70); Platelet Count 376 K/mm3 (150-450); RBC Distribution Width CV 13.3 % (11.6-14.6); RBC Distribution Width SD 44.3 fl (35.1-43.9); White Blood Count 7.7 K/mm3 (4.4-11.0)
[2020-05-15 18:28] LABS: ALB/GLOB Ratio 0.9 RATIO (0.9-2.4); AST(SGOT) 18 U/L (15-37); Alanine Aminotransfer ALT/SGPT 24 U/L (16-61); Albumin, Serum 3.5 g/dL (3.2-5.0); Alkaline Phosphatase 114 U/L (45-117); Anion Gap 6 (5-15); BUN 17 mg/dL (7-18); BUN/Creat Ratio 14.3 RATIO (10-20); Calcium,Total 8.9 mg/dL (8.5-10.1); Chloride 105 mmol/L (98-107); Cholesterol 126 mg/dL (200); Creatinine, Serum 1.19 mg/dL (0.70-1.30); EST Glomerular Filtration Rate 64 mL/min (>60); Est Glom Filt Rate - Afr Amer 78 mL/min (>60); Glucose 95 mg/dL (74-106); High Density Lipoprotein 38 mg/dL; Potassium 4.1 mmol/L (3.5-5.1); Protein, Total 7.5 g/dL (6.4-8.2); Sodium Level 139 mmol/L (136-145); Triglycerides 153 mg/dL; Uric Acid 4.2 mg/dL (3.5-7.2); Very Low Density Lipoprotein 31 mg/dL (5-40)
== END ==
PROVIDERS: PCP Family Medicine; Visit Provider Family Medicine
DX: E78.00 Pure hypercholesterolemia, unspecified (principal); I10 Essential (primary) hypertension; M10.9 Gout, unspecified
CPT/HCPCS: 36415; 80053; 80061; 84550; 85025

== ENCOUNTER → 2020-05-22 | Outpatient (CLI) | payer MEDICARE, OTHER, SELFPAY ==
[2020-04-03 00:21] VITALS: BMI 31.8
== END | disposition home or self-care (01) ==
LOC: MFPLAB 15:38 → LABSPEC 15:38
PROVIDERS: PCP Family Medicine; Referring Provider Family Medicine; Visit Provider Family Medicine
DX: B34.9 Viral infection, unspecified (principal)
CPT/HCPCS: 87635; U0005; U0003

== ENCOUNTER 2020-05-30 18:54 | Inpatient (IN) | payer MEDICARE, OTHER, SELFPAY ==
[2020-04-03 00:21] VITALS: BMI 31.8
[2020-05-30] VITALS (8 sets, daily range): BP systolic 121–181; BP diastolic 68–111; PULSE 83–121; RESP 16–27; TEMP 36.6–38.7; O2SAT 93–96; BMI 31.2; BMI 30.4
--- NOTE | 2020-05-30 19:03 | ED.RN ---
RN CALLED FOR EKG, PULLED OLD EKGS FOR
--- NOTE | 2020-05-30 19:16 | RAD_ITS ---
STUDY: X-RAY CHEST REASON FOR EXAM: Male, 70 years old. CHEST PAIN X 1 HOUR TECHNIQUE: AP portable COMPARISON: None. FINDINGS: There is diminished inspiratory effort and discoid atelectasis in both lower lobes.. There is no demonstrated pleural abnormality. Normal size heart. Normal mediastinum and sandra. Normal visualized pulmonary arteries. Mildly calcified aortic arch and descending thoracic aorta. Normal visualized thoracic spine. Normal visualized ribs, clavicles, and shoulders. There is no demonstrated abnormality of the visualized soft tissue structures of the upper abdomen. RAD/Chest 1 View (Portable) IMPRESSION: Diminished inspiratory effort and bibasilar atelectasis Electronically Signed: Jason Johnson MD at 19:37 EST , Service support ,
--- NOTE | 2020-05-30 19:17 | EKG12_ITS ---
Test Reason : CP Blood Pressure : / mmHG Vent. Rate : 085 BPM Atrial Rate : 085 BPM P-R Int : 134 ms QRS Dur : 080 ms QT Int : 450 ms P-R-T Axes : 041 015 031 degrees QTc Int : 535 ms Normal sinus rhythm Prolonged QT Abnormal ECG Confirmed by GUNNAR KAYE, TONYA ([id number]), editor sound TONY GARAY ([id number]) on 06/04/2020 11:07:24 AM Referred By: CLYDE Confirmed By:RAHAT MAHER MD
--- NOTE | 2020-05-30 19:18 | ED.VISSUMM ---
- ER Visit Summary Date of Service: 05/30/20 Chief Complaint: [Chest pain] History of Present Illness: The patient is a 70 M [presents to the emergency department complaint of chest pain is around an hour ago. Patient rates the pain is severe and an 8 out of 10 currently in the right side of his chest that radiates down towards the abdomen in the midaxillary line. Patient states pain is worse with breathing. He feels somewhat short of breath with it. He is never had pain like this before. He has had a cough and low-grade fever for the last 10 days. Patient states he had a negative Covid test 10 days ago. Patient does have history of hypertension, high cholesterol, IBS, obstructive sleep apnea] Physical Examination: [HEENT-PERRLA, EOMI. Cranial nerves II through XII grossly intact. TMs clear. Mucous membranes moist. No adenopathy. Cardiovascular-regular rate and rhythm without murmur or ectopy Lungs-patient takes very shallow breaths but seems to have good breath sounds bilaterally. Patient slightly tachypneic. No accessory muscle use or retractions. Abdomen-normoactive bowel sounds, soft, nontender, no rebound or rigidity, no peritoneal signs. Extremities-intact ?4, normal range of motion, normal pulses, atraumatic] Test Results: [EKG obtained on arrival showed a sinus rhythm with a ventricular rate of 85 bpm with slightly prolonged QT with a QT of 450 and a QTC of 535. CBC with differential obtained showed a white count of 11.5, hemoglobin 14, hematocrit 42, platelets 630. Chemistries unremarkable. Troponin was less than 0.15. D-dimer was elevated at 3.62. Patient had a positive Covid test.] Emergency Department Course and Treatment: [Patient on arrival was a very difficult IV stick and I had to place an external jugular IV on the left. Patient was started empirically on Lovenox given that we cannot perform a CTA of the chest through an EJ IV and we do not have a peripheral. Given his pleuritic chest pain and diagnosis of Covid he has had increased risk for venous thromboembolism and therefore he was started on Lovenox subcu. Was medicated initially with morphine and Zofran followed in by a milligram of Dilaudid for continued pain.] Treatment Plan: [Admit] Disposition: [Admit] Impression: [COVID-19 pneumonia Chest pain-suspect pulmonary embolism] This note was generated with [employer] dictation software. It may contain incorrect words, spelling, and punctuation that were not noted in review of the chart prior to signing ED Disposition - Plan for ED Patient: Referrals: Seng Willoughby MD [Primary Care Provider] -
[2020-05-30] MEDS: 0.9% Normal Saline 1,000 ML 150 ML IV (19:54)
[2020-05-30] MEDS: Morphine 4 MG/ML Syringe IV (19:54)
[2020-05-30] MEDS: Ondansetron 4 MG/2 ML Vial IV (19:54)
--- NOTE | 2020-05-30 20:06 | ED.RN ---
I'VE TRIED 4 TIMES TO GET IV ACCESS. SANAZ AT BEDSIDE WITH ULTRASOUND. IV MEDS WERE ABLE TO BE GIVEN BUT LINE WAS ARTERIAL AND PULLED. DR. SOTELO AT BEDSIDE FOR UPDATE. SANAZ TO TRY AGAIN AND IF NOT, DR. SOTELO WILL PLACE IG. SANTILLAN AT BEDSIDE WITH US.
[2020-05-30 20:08] LABS: Absolute Lymphocyte Count 1.58 X10^3/uL (0.83-4.51); Absolute Neutrophil Count 8.9 X10^3/uL (2.0-7.7); Basophil# 0.05 X10^3/uL; Basophil% 0.4 % (0-1); Eosinophil# 0.12 X10^3/uL; Hematocrit 42.2 % (40-54); Hemoglobin 14.2 g/dL (13.0-16.5); Lymphocyte # 1.58 X10^3/ul (4.0); Lymphocyte % 13.8 % (19-41); Mean Corp Hgb Conc 33.6 g/dL (32-36); Mean Corpuscular Volume 86.3 fL (80-94); Mean Platelet Vol. 7.9 fl (6.2-12.0); Monocyte# 0.73 X10^3/uL; Monocyte% 6.4 % (0-10); NRBC Flagged by Analyzer 0 % (0-5); Neutrophil # 8.93 X10^3/uL (2.7-7.7); Neutrophil % 77.8 % (47-70); Platelet Count 630 K/mm3 (150-450); RBC Distribution Width CV 12.9 % (11.6-14.6); RBC Distribution Width SD 40.6 fl (35.1-43.9); Red Blood Count 4.89 M/mm3 (4.6-6.2); White Blood Count 11.5 K/mm3 (4.4-11.0)
--- NOTE | 2020-05-30 20:09 | ED.RN ---
RECEIVED APPROVAL FROM PT TO UPDATE ON POC.
[2020-05-30 20:34] LABS: Anion Gap 8 (5-15); BUN 24 mg/dL (7-18); BUN/Creat Ratio 20.5 RATIO (10-20); Calcium,Total 9.3 mg/dL (8.5-10.1); Chloride 102 mmol/L (98-107); Creatinine, Serum 1.17 mg/dL (0.70-1.30); EST Glomerular Filtration Rate 65 mL/min (>60); Est Glom Filt Rate - Afr Amer 79 mL/min (>60); Estimated Creatinine Clearance 64.48 ml/min; Glucose 162 mg/dL (74-106); Potassium 4.8 mmol/L (3.5-5.1); Sodium Level 132 mmol/L (136-145)
[2020-05-30] MEDS: HYDROmorphone 1 MG/ML Syringe IV (20:35)
[2020-05-30 20:36] LABS: D-Dimer Quantitative (DVT/PE) 3.64 FEU/ug/m (0.27-0.49)
[2020-05-30 21:07] LABS: Probe Check PASS
--- NOTE | 2020-05-30 21:33 | CT_ITS ---
STUDY: CTA CHEST REASON FOR EXAM: Male, 70 years old. CHEST PAIN,ELEVATED DDIMER AND WBC,+ COVID TEST -- HX:HTN RADIATION DOSAGE (If Supplied By Facility): CTDIvol = ( 12.30 ) mGy, DLP = ( 481.99 ) mGycm TECHNIQUE: The examination was performed with the intravenous administration of IV 100mL Isovue-370. Post-processing of the angiographic images was performed, with multiplanar reformation and 3D reconstruction. Individualized dose optimization techniques were used for this CT. COMPARISON: None. FINDINGS: Normal enhancement of the main pulmonary artery and right and left pulmonary arteries. The interlobar segmental and proximal to mid subsegmental vessels well opacified without evidence for clot. The more distal subsegmental vessels are as well visualized however there is no definitive evidence for thrombus.. Mild atherosclerotic changes of the aorta without evidence for aneurysm. There is no demonstrated aortic dissection. The heart is enlarged and there is mild coronary artery calcification. Normal mediastinum. Normal hilar regions. Normal visualized trachea and bronchi. The lungs are well expanded. There is left lower lobe atelectasis or infiltrate. There is a large right pleural effusion with focal consolidation of the right lower lobe. Normal pleura. Normal chest wall structures. Dorsal spine demonstrates spondylosis. Multiple hepatic cysts are seen within the liver. CT/CTA Chest W/WO Contrast IMPRESSION: Left lower lobe infiltrate and a large right pleural effusion with consolidation of the right lower lobe which may be consistent with inflammatory changes.. No definitive evidence for pulmonary embolus given limited visualization of the distal subsegmental vessels. If strong clinical suspicion for pulmonary embolus DOPPLER study of deep venous system of the lower extremities recommended Electronically Signed: Jason Johnson MD at 22:36 EST , Service support ,
[2020-05-30] MEDS: Enoxaparin 120 MG/0.8 ML Syringe 105 MG SC (21:45)
[2020-05-30] MEDS: Acetaminophen 325 MG Tablet 650 MG PO (21:45)
--- NOTE | 2020-05-30 21:59 | PCM.HP.STD ---
Problem List (1) Elevated d-dimer Status: Acute (2) Obstructive sleep apnea Status: Chronic (3) High cholesterol Status: Chronic (4) COVID-19 Status: Acute History of Present Illness Date of Admission: 05/30/20 Chief Complaint: Chest pain The patient is a 70 year old M with a significant history of hyperlipidemia and former tobacco abuse who presents emergency department with sudden onset chest pain that started about an hour prior to presentation. His chest pain is located at his right chest and it radiates towards his right posterior rib area. He rates his pain as 8 out of 10 in severity. His pain is aching. He denies any aggravating or ameliorating factors to the pain. Associated with symptom is shortness of breath. Further, she had a low-grade fever at home; chills; and diaphoresis. He was started on azithromycin about 4 days ago because of cough. His cough is nonproductive. Covid test at emergency department was positive. His D-dimer was elevated. Emergent department doctor ordered a CTA chest. Around March 2020 he had an appendectomy. Preoperatively his rapid Covid test was positive. However PCR was negative. About a week ago he had a negative Covid test. Past Medical History Past Medical History (Chronic Problems): Chronic Problems (Last Reviewed 05/31/20 @ 00:[address] Dougie Avila MD) Obstructive sleep apnea (Chronic) High cholesterol (Chronic) Medical History: Medical History (Last Reviewed 05/31/20 @ 00:[address] Dougie Avila MD) GERD (gastroesophageal reflux disease) K21.9 History of Mohs micrographic surgery for skin cancer Z85.828, Z98.890 Sleep apnea G47.30 High cholesterol E78.00 Hypertension I10 IBS (irritable bowel syndrome) K58.9 Allergies No Known Allergies Allergy (Verified 05/30/20 18:58) Home Medications: Ambulatory Orders Medication Instructions Recorded allopurinol 300 mg tablet 1 tab PO DAILY MDD gout 12/12/19 atorvastatin 10 mg tablet 1 tab PO DAILY 12/12/19 kddyuerd-ygn-amtvy acid 300 1 tab PO DAILY 12/12/19 mcg-lycopene 600 mcg-lutein 300 mcg tablet omeprazole 20 mg capsule,delayed 1 tab PO DAILY 12/12/19 release sildenafil 100 mg tablet 100 ea PO PRN PRN 12/12/19 Azithromycin 250 mg PO DAILY 05/30/20 Surgical History: Surgical History (Last Reviewed 04/02/20 @ 20:[address] Farrukh Waite MD) History of colonoscopy Onset Date: ~2012 Z98.890 History of nasal septoplasty Z98.890 History of right inguinal hernia repair Onset Date: ~2013 Z98.890, Z87.19 history of hernia repair Surgical History: appendectomy, - - Right inguinal hernia repair, rhinoplasty. Psychiatric History: No pertinent psych hx Smoking Status: Former smoker - *Family History Maternal Family History: Family History (Last Reviewed 05/31/20 @ 00:[address] Dougie Avila MD) Sister Colon cancer Father Heart disease History Items: - - Patient notes that his mother during childbirth, specifically with him. Paternal Family History: Family History (Last Reviewed 05/31/20 @ 00:[address] Dougie Avila MD) Sister Colon cancer Father Heart disease History Items: Heart Disease Sibling Family History: Family History (Last Reviewed 05/31/20 @ 00:[address] Dougie Avila MD) Sister Colon cancer Father Heart disease History Items: Cancer - Sister with a history of colon cancer. Review of Systems Constitutional: Reports: Chills, Fever. Denies: Weight Change HEENT: Denies: Head Aches, Sinus Congestion, Sinus Drainage Cardiovascular: Denies: Chest Pain, Palpitations Respiratory: Reports: Cough, Pleuritic Pain, Shortness of Breath. Denies: Sputum production Gastrointestinal: Denies: Abdominal Pain, Nausea, Vomiting Genitourinary: Denies: Dysuria Musculoskeletal: Denies: Joint Pain, Joint Tenderness Skin: Denies: Rash, Wounds Neurological: Denies: Numbness, Tingling, Focal weakness Psychiatric: Denies: Anxiety, Depression, Homicidal Ideations, Suicidal Ideations Hematologic/ Lymphatic: Denies: Easy Bruising, Easy Bleeding VTE Information - Inpt Only VTE Present on Admission: No VTE Mechan Device Prophylaxis: None VTE Pharm Prophylaxis ordered?: No Reason prophylaxis not ordered:: Treatment Not Indicated - Received therapeutic dose of Lovenox at emergency department. Patient Problems: Active and Suspected Problems (Last Reviewed 05/31/20 @ 00:[address] Dougie Avila MD) COVID-19 (Acute) Elevated d-dimer (Acute) - Physical Exam Vitals/I&O's: Vital Signs Temp Pulse Resp BP Pulse Ox 101.6 F H 121 H 23 H 122/91 H 93 05/30/20 21:46 05/30/20 21:46 05/30/20 21:46 05/30/20 21:46 05/30/20 21:46 Oxygen Flow Rate (L/min) 5 Oxygen Delivery Method Nasal Cannula Weight: 104.6 kg Body Mass Index (BMI) 31.2 General: Alert, Oriented x3, Cooperative HEENT: Atraumatic, PERRLA, EOMI, Normocephalic Neck: Supple, No JVD, Negative Carotid Bruits Lungs: Clear to auscultation, Normal air movement, Tachypneic Cardiovascular: Normal S1, Normal S2, No murmurs Abdomen: Bowel Sounds Present, Soft, Non Tender Extremities: No edema, Capillary Refill Less than 3 Seconds Skin: No rashes, No breakdown Musculoskeletal: No Tenderness to Palpation of Joints or Extremities Neurological: Cranial nerves II-XII grossly intact Psych/Mental Status: Normal Affect, Appropriate Laboratory Results 05/30/20 19:38: COVID-19 (PADMINI) Positive 05/30/20 20:00: WBC 11.5 H, RBC 4.89, Hgb 14.2, Hct 42.2, MCV 86.3, MCH 29.0, MCHC 33.6, RDW Std Deviation 40.6, RDW Coeff of Usman 12.9, Plt Count 630 H, MPV 7.9, Immature Gran % (Auto) 0.600, Neut % (Auto) 77.8 H, Lymph % (Auto) 13.8 L, [place] % (Auto) 6.4, Eos % (Auto) 1.0, Baso % (Auto) 0.4, Absolute Neuts (auto) 8.9 H, Absolute Lymphs (auto) 1.58, Nucleated RBC % 0 05/30/20 20:00: D-Dimer Quant (PE/DVT) 3.64 H* 05/30/20 20:00: Sodium 132 L, Potassium 4.8, Chloride 102, Carbon Dioxide 22.0, Anion Gap 8, BUN 24 H, Creatinine 1.17, Estim Creat Clear Calc 64.48, Est GFR (MDRD) Af Amer 79, Est GFR (MDRD) Non-Af 65, BUN/Creatinine Ratio 20.5 H, Glucose 162 H, Calcium 9.3, Troponin I < 0.015 Current Medications Sodium Chloride () 1,000 mls @ 150 mls/hr IV .Q6H40M ISA Last Admin: 05/30/20 19:54 Dose: 150 mls/hr Documented by: Assessment/Plan All Active Problems (Last Reviewed 05/31/20 @ 00:[address] Dougie Avila MD) COVID-19 (Acute) Elevated d-dimer (Acute) The patient is a 70 year old M with a significant history of hyperlipidemia and former tobacco abuse who presents emergency department with sudden onset chest pain that started about an hour prior to presentation; elevated D-dimer and with chest CTA of left lower lobe infiltrate and large right pleural effusion. SARS- COV 2 T-max of 101.6 Fahrenheit Her oxygen saturation was 93-96 % on 4-5 LPM at the emergency department. Positive coronavirus test. Impression of chest x-ray by radiologist: Diminished inspiratory effort and bibasilar atelectasis.. Actual chest x-ray image was independently interpreted. I agree with radiologist interpretation. Dimer was elevated at 3.64. Radiologist impression of CTA: Left lower lobe infiltrate and a large right pleural effusion with consolidation of the right lower lobe which may be consistent with inflammatory changes. No definite evidence of pulmonary embolus given limited visualization of the distal subsegmental vessels. Decadron 6 mg p.o. daily ordered. LFTs showed normal AST and ALT but elevated alkaline phosphatase. Remdesivir ordered. Community-acquired pneumonia Received azithromycin and ceftriaxone the emergency department and continued Strep pneumonia and Legionella antigen ordered. Strep pneumonia antigen and Legionella urine antigen ordered. Elevated D-dimer CTA as above. Lateral lower extremities ordered. Received therapeutic Lovenox subcutaneous at emergency department. With his pleural effusion will hold off lovenox and consult pulmonary medicine. Lovenox was given at 05/30/2020 at 21:45 Right pleural effusion with consolidation of right lower lungs Likely the cause of her chest pain. Oxygen as needed Consult pulmonary medicine Gout Allopurinol continued Hyperlipidemia Lipitor continued GERD Omeprazole continued. DVT Prophylaxis Received therapeutic dose of lovenox at the ED. Will get bilateral lower extremities doppler so will hold off SCD at this time Inpatient E&M: 38929 Init Hosp L3
[2020-05-30] MEDS: Ceftriaxone 1 GM/50 ML BAG IV (22:25)
--- NOTE | 2020-05-30 23:08 | VDLE_ITS ---
Reason For Study: Elevated D-dimer RIGHT LEFT GSV is normal. GSV is normal. CFV, FV and PopV are compressible. CFV, FV and PopV are compressible. T/P Trunk is compressible. T/P Trunk is compressible. PTV is compressible. PTV is compressible. RT PerV is compressible. LT PerV is compressible. Procedure This is a venous duplex using B-mode, color flow and spectral Doppler. Exam performed portable in patient room. The exam was abbreviated due to the COVID 19 protocol. A preliminary report was called and/or faxed to MS2 RN. Interpretation Summary No evidence for acute deep venous thrombosis bilateral lower extremities with patent and compressible bilateral great saphenous veins. Covid 19 protocol Ordering Physician: Dougie Avila Referring Physician: Seng Willoughby Performed By: Joanie Palacio RVT
[2020-05-30 23:45] LABS: AST(SGOT) 36 U/L (15-37); Alanine Aminotransfer ALT/SGPT 51 U/L (16-61); Albumin, Serum 3.2 g/dL (3.2-5.0); Alkaline Phosphatase 177 U/L (45-117); Bilirubin, Direct 0.23 mg/dL (0.00-0.30); Protein, Total 8.2 g/dL (6.4-8.2)
[2020-05-31] VITALS (13 sets, daily range): BP systolic 139–160; BP diastolic 76–98; PULSE 84–103; RESP 18–20; TEMP 36.5–37.8; O2SAT 93–97
[2020-05-31] MEDS: dexAMETHasone 4 MG Tablet 6 MG PO ×2 (00:04→08:54)
[2020-05-31] MEDS: Acetaminophen 325 MG Tablet 650 MG PO (03:33)
[2020-05-31] MEDS: 0.9% Saline Lock 10 ML Syringe IV ×4 (04:07→21:32)
[2020-05-31] MEDS: Morphine 2 MG/ML Syringe IV ×3 (04:07→12:15)
[2020-05-31 06:01] LABS: ALB/GLOB Ratio 0.6 RATIO (0.9-2.4); AST(SGOT) 37 U/L (15-37); Alanine Aminotransfer ALT/SGPT 48 U/L (16-61); Albumin, Serum 2.9 g/dL (3.2-5.0); Alkaline Phosphatase 181 U/L (45-117); Anion Gap 7 (5-15); BUN 27 mg/dL (7-18); BUN/Creat Ratio 20.1 RATIO (10-20); Calcium,Total 9.1 mg/dL (8.5-10.1); Chloride 102 mmol/L (98-107); Creatinine, Serum 1.34 mg/dL (0.70-1.30); EST Glomerular Filtration Rate 56 mL/min (>60); Est Glom Filt Rate - Afr Amer 68 mL/min (>60); Globulin 4.9 g/dL (2.2-4.2); Glucose 163 mg/dL (74-106); Magnesium 2.1 mg/dL (1.6-2.6); Potassium 5.1 mmol/L (3.5-5.1); Protein, Total 7.8 g/dL (6.4-8.2); Sodium Level 134 mmol/L (136-145)
[2020-05-31 06:15] LABS: Absolute Lymphocyte Count 0.42 X10^3/uL (0.83-4.51); Absolute Neutrophil Count 8.9 X10^3/uL (2.0-7.7); Basophil# 0.03 X10^3/uL; Basophil% 0.3 % (0-1); Hematocrit 47.9 % (40-54); Hemoglobin 15.7 g/dL (13.0-16.5); Lymphocyte # 0.42 X10^3/ul (4.0); Lymphocyte % 4.2 % (19-41); Mean Corp Hgb Conc 32.8 g/dL (32-36); Mean Corpuscular Volume 88.5 fL (80-94); Mean Platelet Vol. 8.2 fl (6.2-12.0); Monocyte# 0.67 X10^3/uL; Monocyte% 6.7 % (0-10); NRBC Flagged by Analyzer 0 % (0-5); Neutrophil % 88.5 % (47-70); POSITIVE DIFFERENTIAL YES; Platelet Count 537 K/mm3 (150-450); RBC Distribution Width SD 42.5 fl (35.1-43.9); Red Blood Count 5.41 M/mm3 (4.6-6.2); White Blood Count 10.1 K/mm3 (4.4-11.0)
[2020-05-31 06:16] LABS: Differential Indicated SCAN CRITERIA MET
--- NOTE | 2020-05-31 06:33 | PCM.CONS.PUL ---
Reason for Consult Date of Consultation: 05/31/20 Reason for Consultation: Acute hypoxemic respiratory failure History of Present Illness: The patient is a 70-year-old male, with a history as outlined below, who presented to the emergency department on May 30 with complaints of pleuritic type chest pain, cough and low-grade fevers. The patient reported that he had actually tested negative for coronavirus 10 days ago. He denies any sick contact exposures. He does have a history of obstructive sleep apnea and utilizes nocturnal CPAP therapy. On presentation to the emergency department, the patient was noted to be febrile tachycardic and tachypneic. Laboratory evaluation revealed a mildly elevated white blood cell count with a platelet count of 630,000. D-dimer was elevated at 3.64. Chemistry profile was largely unremarkable. AST and ALT were within normal limits. Troponin was negative. Coronavirus PCR was positive. CTA chest showed no definitive evidence of pulmonary embolism. However, the study was suboptimal. A right-sided pleural effusion was noted with associated consolidation. The patient was started on antimicrobials, Decadron and remdesivir. He was subsequently admitted to the coronavirus cohort unit for further management. Past Medical History Past Medical History (Chronic Problems): Chronic Problems (Last Reviewed 05/31/20 @ 00:[address] Dougie Avila MD) Obstructive sleep apnea (Chronic) High cholesterol (Chronic) Medical History: Medical History (Last Reviewed 05/31/20 @ 00:[address] Dougie Avila MD) GERD (gastroesophageal reflux disease) K21.9 History of Mohs micrographic surgery for skin cancer Z85.828, Z98.890 Sleep apnea G47.30 High cholesterol E78.00 Hypertension I10 IBS (irritable bowel syndrome) K58.9 Allergies No Known Allergies Allergy (Verified 05/30/20 18:58) Home Medications: Ambulatory Orders Medication Instructions Recorded allopurinol 300 mg tablet 1 tab PO DAILY MDD gout 12/12/19 atorvastatin 10 mg tablet 1 tab PO DAILY 12/12/19 vvysqaqy-vbw-gyqfv acid 300 1 tab PO DAILY 12/12/19 mcg-lycopene 600 mcg-lutein 300 mcg tablet omeprazole 20 mg capsule,delayed 1 tab PO DAILY 12/12/19 release sildenafil 100 mg tablet 100 ea PO PRN PRN 12/12/19 Azithromycin 250 mg PO DAILY 01/13/21 Surgical History: Surgical History (Last Reviewed 04/02/20 @ 20:[address] Farrukh Waite MD) History of colonoscopy Onset Date: ~2012 Z98.890 History of nasal septoplasty Z98.890 History of right inguinal hernia repair Onset Date: ~2013 Z98.890, Z87.19 history of hernia repair Surgical History: appendectomy, - - Right inguinal hernia repair, rhinoplasty. Psychiatric History: No pertinent psych hx Smoking Status: Former smoker - *Family History Maternal Family History: Family History (Last Reviewed 05/31/20 @ 00:[address] Dougie Avila MD) Sister Colon cancer Father Heart disease History Items: - - Patient notes that his mother during childbirth, specifically with him. Paternal Family History: Family History (Last Reviewed 05/31/20 @ 00:[address] Dougie Avila MD) Sister Colon cancer Father Heart disease History Items: Heart Disease Sibling Family History: Family History (Last Reviewed 05/31/20 @ 00:[address] Dougie Avila MD) Sister Colon cancer Father Heart disease History Items: Cancer - Sister with a history of colon cancer. Review of Systems Constitutional: Reports: Fever, Malaise Eyes: Denies: Blurred vision, Double vision HEENT: Denies: Head Aches, Sinus Congestion, Sinus Drainage Cardiovascular: Reports: Chest Pain Respiratory: Reports: Cough, Pleuritic Pain, Shortness of Breath Gastrointestinal: Denies: Abdominal Pain, Nausea, Vomiting Genitourinary: Denies: Dysuria Musculoskeletal: Denies: Joint Pain, Joint Tenderness Skin: Denies: Rash, Wounds Neurological: Denies: Numbness, Tingling, Focal weakness Psychiatric: Denies: Anxiety, Depression, Homicidal Ideations, Suicidal Ideations Hematologic/ Lymphatic: Denies: Easy Bruising, Easy Bleeding, Hx of blood clot Patient Problems: Active and Suspected Problems (Last Reviewed 05/31/20 @ 00:[address] Dougie Avila MD) COVID-19 (Acute) Elevated d-dimer (Acute) Objective: The patient's most recent lab work, culture data and imaging studies have all been personally reviewed. Coronavirus PCR was positive on May 30. - Physical Exam Vitals/I&O's: Vital Signs Temp Pulse Resp BP Pulse Ox 97.9 F 96 20 H 160/98 H 97 05/31/20 03:30 05/31/20 03:30 05/31/20 03:30 05/31/20 03:30 05/31/20 03:30 Oxygen Flow Rate (L/min) 4 Oxygen Delivery Method Nasal Cannula Weight: 224 lb 6.889 oz Body Mass Index (BMI) 30.4 Intake and Output for Last 24 Hours 05/29/20 05/30/20 05/31/20 23:59 23:59 23:59 Intake Total 50 / 50 1332.5 / 1332.5 Output Total 200 / 200 Balance 50 / 50 1132.5 / 1132.5 General: Alert, Cooperative, No apparent distress HEENT: Atraumatic, PERRLA, Normocephalic Oral: No Gingival or Mucosal Lesions/ Ulcerations Neck: Supple, No Nodes, Trachea Midline Lungs: Diminished, Tachypneic, - - Speaking in complete sentences. No assessory muscle use. Cardiovascular: Regular rate, Regular Rhythm Abdomen: Bowel Sounds Present, Soft, Non Tender, Obese Extremities: No clubbing, No cyanosis, No edema Skin: No breakdown Musculoskeletal: No Tenderness to Palpation of Joints or Extremities, No Muscle Wasting Lymphatic: No Cervical, Supraclavicular, or Inguinal Adenopathy Neurological: Cranial nerves II-XII grossly intact, Neuro grossly intact Psych/Mental Status: Alert and oriented to time, place, person, mood and affect Labs (Last 48 Hours) 05/30/20 05/30/20 05/30/20 19:38 20:00 20:00 WBC 11.5 H RBC 4.89 Hgb 14.2 Hct 42.2 MCV 86.3 MCH 29.0 MCHC 33.6 RDW Std Deviation 40.6 RDW Coeff of Usman 12.9 Plt Count 630 H MPV 7.9 Immature Gran % (Auto) 0.600 Neut % (Auto) 77.8 H Lymph % (Auto) 13.8 L Collier % (Auto) 6.4 Eos % (Auto) 1.0 Baso % (Auto) 0.4 Absolute Neuts (auto) 8.9 H Absolute Lymphs (auto) 1.58 Nucleated RBC % 0 D-Dimer Quant (PE/DVT) 3.64 H* Sodium Potassium Chloride Carbon Dioxide Anion Gap BUN Creatinine Estim Creat Clear Calc Est GFR (MDRD) Af Amer Est GFR (MDRD) Non-Af BUN/Creatinine Ratio Glucose Calcium Magnesium Total Bilirubin Direct Bilirubin AST ALT Alkaline Phosphatase Troponin I Total Protein Albumin Globulin Albumin/Globulin Ratio COVID-19 (PADMINI) Positive 05/30/20 05/30/20 05/31/20 20:00 20:00 05:06 WBC 10.1 RBC 5.41 Hgb 15.7 Hct 47.9 MCV 88.5 MCH 29.0 MCHC 32.8 RDW Std Deviation 42.5 RDW Coeff of Usman 13.0 Plt Count 537 H MPV 8.2 Immature Gran % (Auto) 0.300 Neut % (Auto) 88.5 H Lymph % (Auto) 4.2 L Collier % (Auto) 6.7 Eos % (Auto) 0.0 Baso % (Auto) 0.3 Absolute Neuts (auto) 8.9 H Absolute Lymphs (auto) 0.42 L Nucleated RBC % 0 D-Dimer Quant (PE/DVT) Sodium 132 L Potassium 4.8 Chloride 102 Carbon Dioxide 22.0 Anion Gap 8 BUN 24 H Creatinine 1.17 Estim Creat Clear Calc 64.48 Est GFR (MDRD) Af Amer 79 Est GFR (MDRD) Non-Af 65 BUN/Creatinine Ratio 20.5 H Glucose 162 H Calcium 9.3 Magnesium Total Bilirubin 0.70 Direct Bilirubin 0.23 AST 36 ALT 51 Alkaline Phosphatase 177 H Troponin I < 0.015 Total Protein 8.2 Albumin 3.2 Globulin 5.0 H Albumin/Globulin Ratio COVID-19 (PADMINI) 05/31/20 05:06 WBC RBC Hgb Hct MCV MCH MCHC RDW Std Deviation RDW Coeff of Usman Plt Count MPV Immature Gran % (Auto) Neut % (Auto) Lymph % (Auto) Collier % (Auto) Eos % (Auto) Baso % (Auto) Absolute Neuts (auto) Absolute Lymphs (auto) Nucleated RBC % D-Dimer Quant (PE/DVT) Sodium 134 L Potassium 5.1 Chloride 102 Carbon Dioxide 25.0 Anion Gap 7 BUN 27 H Creatinine 1.34 H Estim Creat Clear Calc 56.30 Est GFR (MDRD) Af Amer 68 Est GFR (MDRD) Non-Af 56 L BUN/Creatinine Ratio 20.1 H Glucose 163 H Calcium 9.1 Magnesium 2.1 Total Bilirubin 0.50 Direct Bilirubin AST 37 ALT 48 Alkaline Phosphatase 181 H Troponin I Total Protein 7.8 Albumin 2.9 L Globulin 4.9 H Albumin/Globulin Ratio 0.6 L COVID-19 (PADMINI) Microbiology 05/31/20 04:45 Interface Orders Legionella Antigen - Final 05/31/20 04:45 Interface Orders Streptococcus pneumoniae Antigen (M - Final Clinical Impression(s) from Imaging Studies Chest X-Ray 05/30/20 19:16 IMPRESSION: Diminished inspiratory effort and bibasilar atelectasis Electronically Signed: Jason Johnson MD at 19:37 EST , Service support , Chest CTA 05/30/20 21:33 IMPRESSION: Left lower lobe infiltrate and a large right pleural effusion with consolidation of the right lower lobe which may be consistent with inflammatory changes.. No definitive evidence for pulmonary embolus given limited visualization of the distal subsegmental vessels. If strong clinical suspicion for pulmonary embolus DOPPLER study of deep venous system of the lower extremities recommended Electronically Signed: Jason Johnson MD at 22:36 EST , Service support , Current Medications Acetaminophen (Acetaminophen 325 Mg Tablet) 650 mg PO Q6H PRN PRN PRN Reason: pain 1-10/fever Last Admin: 05/31/20 03:33 Dose: 650 mg Documented by: Allopurinol (Allopurinol 300 Mg Tablet) 300 mg PO DAILY ISA Atorvastatin Calcium (Atorvastatin Calcium 10 Mg Tablet) 10 mg PO QHS [facility] Dexamethasone (Dexamethasone 4 Mg Tablet) 6 mg PO DAILY [facility] Last Admin: 05/31/20 00:04 Dose: 6 mg Documented by: Ceftriaxone Sodium (Rocephin) 1 gm in 50 mls @ 100 mls/hr IV Q24H ISA Azithromycin 500 mg/ Dextrose 255 mls @ 250 mls/hr IV Q24H ISA Sodium Chloride () 250 mls @ 15 mls/hr IV .[id number] PRN PRN Reason: Saline Flush Sodium Chloride () 250 mls @ 15 mls/hr IV .[id number] PRN PRN Reason: Additional IVPB Infusion Remdesivir 100 mg/ Sodium (Chloride) 250 mls @ 125 mls/hr IV Q24H ISA Stop: 06/03/20 23:59 Morphine Sulfate (Morphine 2 Mg/Ml Syringe) 2 mg IV Q3H PRN PRN PRN Reason: pain 6-10 Last Admin: 05/31/20 04:07 Dose: 2 mg Documented by: Multivitamins/Minerals (Multivitamins,Ther W-Minerals Tablet) 1 tablet PO DAILY ISA Pantoprazole Sodium (Pantoprazole Sodium 20 Mg Tablet) 20 mg PO DAILY [facility] Sodium Chloride (0.9% Saline Lock 10 Ml Syringe) 10 - 40 ml IV UD PRN PRN Reason: SALINE FLUSH Last Admin: 05/31/20 04:07 Dose: 10 ml Documented by: Assessment/Plan All Active Problems (Last Reviewed 05/31/20 @ 00:[address] Dougie Avila MD) COVID-19 (Acute) Elevated d-dimer (Acute) RECOMMENDATIONS: 1. Obtain infectious diseases consultation. Will continue empiric antimicrobials in the interim. 2. Continue Decadron by mouth for the next 10 days. 3. Continue remdesivir. Monitor liver and renal function accordingly. 4. Wean supplemental oxygen to maintain saturations at or above 90%. 5. Start therapeutic Lovenox twice daily. 6. Continue nocturnal CPAP therapy per home regimen. IMPRESSIONS: 1. Acute hypoxemic respiratory failure secondary to COVID-19 pneumonia The patient presented to the hospital with pleuritic type chest pain and a new supplemental oxygen requirement. Coronavirus PCR was positive. Accordingly, the patient was started on Decadron and remdesivir. Continue to monitor liver and renal function accordingly. Wean supplemental oxygen to maintain saturations at or above 90%. Given the nondiagnostic nature of the patient's CTA chest and elevated D-dimer level, recommend starting the patient on therapeutic Lovenox. 2. Elevated D-dimer Given that the patient presented to the hospital with tachycardia, tachypnea and hypoxemia, along with elevated D-dimer level, I would recommend that therapeutic Lovenox be started. CTA chest was a bit suboptimal for the evaluation of PE. 3. History of obstructive sleep apnea Orders for nocturnal CPAP therapy will be placed, per home regimen. 4. Obesity/hyperlipidemia/GERD Complicates care, management, recovery and prognosis. Continue home medications as indicated. CODE status: Discussed CODE status at length including difference between FULL code, DNR-CCA and DNR-CC status. Following discussions about the differences in these status, patient requested FULL CODE STATUS. Advanced Care Planning Face to Face Time: 13 minutes. This note was generated with Ranberry[employer] software. It may contain incorrect words, spelling, and punctuation that were not noted in checking the note before signing. Inpatient E&M: 97314 Init Hosp L3 Procedures: [id number] Advncd Care Plan 30 Min
--- NOTE | 2020-05-31 07:41 | PCM.PN.HOSP ---
Patient Problems: Active and Suspected Problems (Last Reviewed 05/31/20 @ 00:[address] Dougie Avila MD) COVID-19 (Acute) Elevated d-dimer (Acute) Reason for Visit: Follow-up for COVID-19 with right pleural effusion with associated underlying consolidation and atelectasis. Acute hypoxic respiratory failure. Objective: Patient has fever T-max 101.6 Fahrenheit. Heart rate in 90s. Pulse ox 97% on [address] angiogram chest was negative for central PE but could not comment on peripheral subsegmental PE because of suboptimal study. Right lower consolidation with pleural effusion. CT angiogram initially reviewed and to me it seems moderate pleural effusion although reported large right pleural effusion. 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 Patient has cough with some clearish sputum. Patient has symptoms for about 8 days prior to admission mainly started with shortness of breath and cough. Physical exam General: Alert, Oriented x3, Cooperative HEENT: Atraumatic, PERRLA, EOMI, Normocephalic Oral: No Gingival or Mucosal Lesions/ Ulcerations Neck: Supple, No JVD, Negative Carotid Bruits Lungs: Air entry diminished in right lung base. Right moderate pleural effusion. No crepitation/rhonchi Cardiovascular: Regular rate, Regular Rhythm, Normal S1, Normal S2, No murmurs Abdomen: Bowel Sounds Present, Soft, Non Tender, Non-Distended : No renal angle tenderness. No suprapubic tenderness. Extremities: Mild bilateral ankle edema, Capillary Refill Less than 3 Seconds Skin: No rashes, No breakdown Musculoskeletal: No Tenderness to Palpation of Joints or Extremities Neurological: Cranial nerves II-XII grossly intact, Deep Tendon Reflexes 2+/4 and Symmetrical, Neuro grossly intact Psych/Mental Status: Normal Affect, Appropriate. Vitals/I&O's: Vital Signs Temp Pulse Resp BP Pulse Ox 97.9 F 96 20 H 160/98 H 97 05/31/20 03:30 05/31/20 03:30 05/31/20 03:30 05/31/20 03:30 05/31/20 03:30 Oxygen Flow Rate (L/min) 4 Oxygen Delivery Method Nasal Cannula Weight: 224 lb 6.889 oz Body Mass Index (BMI) 30.4 Intake and Output for Last 24 Hours 05/29/20 05/30/20 05/31/20 23:59 23:59 23:59 Intake Total 50 / 50 1332.5 / 1332.5 Output Total 200 / 200 Balance 50 / 50 1132.5 / 1132.5 Microbiology Past 72 Hours 05/31/20 04:45 Interface Orders Legionella Antigen - Final 05/31/20 04:45 Interface Orders Streptococcus pneumoniae Antigen (M - Final Laboratory Results 05/30/20 19:38: COVID-19 (PADMINI) Positive 05/30/20 20:00: WBC 11.5 H, RBC 4.89, Hgb 14.2, Hct 42.2, MCV 86.3, MCH 29.0, MCHC 33.6, RDW Std Deviation 40.6, RDW Coeff of Usman 12.9, Plt Count 630 H, MPV 7.9, Immature Gran % (Auto) 0.600, Neut % (Auto) 77.8 H, Lymph % (Auto) 13.8 L, Valencia % (Auto) 6.4, Eos % (Auto) 1.0, Baso % (Auto) 0.4, Absolute Neuts (auto) 8.9 H, Absolute Lymphs (auto) 1.58, Nucleated RBC % 0 05/30/20 20:00: D-Dimer Quant (PE/DVT) 3.64 H* 05/30/20 20:00: Sodium 132 L, Potassium 4.8, Chloride 102, Carbon Dioxide 22.0, Anion Gap 8, BUN 24 H, Creatinine 1.17, Estim Creat Clear Calc 64.48, Est GFR (MDRD) Af Amer 79, Est GFR (MDRD) Non-Af 65, BUN/Creatinine Ratio 20.5 H, Glucose 162 H, Calcium 9.3, Troponin I < 0.015 05/30/20 20:00: Total Bilirubin 0.70, Direct Bilirubin 0.23, AST 36, ALT 51, Alkaline Phosphatase 177 H, Total Protein 8.2, Albumin 3.2, Globulin 5.0 H 05/31/20 05:06: WBC 10.1, RBC 5.41, Hgb 15.7, Hct 47.9, MCV 88.5, MCH 29.0, MCHC 32.8, RDW Std Deviation 42.5, RDW Coeff of Usman 13.0, Plt Count 537 H, MPV 8.2, Immature Gran % (Auto) 0.300, Neut % (Auto) 88.5 H, Lymph % (Auto) 4.2 L, Valencia % (Auto) 6.7, Eos % (Auto) 0.0, Baso % (Auto) 0.3, Absolute Neuts (auto) 8.9 H, Absolute Lymphs (auto) 0.42 L, Nucleated RBC % 0 05/31/20 05:06: Sodium 134 L, Potassium 5.1, Chloride 102, Carbon Dioxide 25.0, Anion Gap 7, BUN 27 H, Creatinine 1.34 H, Estim Creat Clear Calc 56.30, Est GFR (MDRD) Af Amer 68, Est GFR (MDRD) Non-Af 56 L, BUN/Creatinine Ratio 20.1 H, Glucose 163 H, Calcium 9.1, Magnesium 2.1, Total Bilirubin 0.50, AST 37, ALT 48, Alkaline Phosphatase 181 H, Total Protein 7.8, Albumin 2.9 L, Globulin 4.9 H, Albumin/Globulin Ratio 0.6 L Current Medications Acetaminophen (Acetaminophen 325 Mg Tablet) 650 mg PO Q6H PRN PRN PRN Reason: pain 1-10/fever Last Admin: 05/31/20 03:33 Dose: 650 mg Documented by: Allopurinol (Allopurinol 300 Mg Tablet) 300 mg PO DAILY [facility] Atorvastatin Calcium (Atorvastatin Calcium 10 Mg Tablet) 10 mg PO QHS [facility] Dexamethasone (Dexamethasone 4 Mg Tablet) 6 mg PO DAILY [facility] Last Admin: 05/31/20 00:04 Dose: 6 mg Documented by: Enoxaparin Sodium (Enoxaparin 100 Mg/Ml Syringe) 100 mg SC Q12 [facility] Ceftriaxone Sodium (Rocephin) 1 gm in 50 mls @ 100 mls/hr IV Q24H [facility] Azithromycin 500 mg/ Dextrose 255 mls @ 250 mls/hr IV Q24H [facility] Sodium Chloride () 250 mls @ 15 mls/hr IV .[id number] PRN PRN Reason: Saline Flush Sodium Chloride () 250 mls @ 15 mls/hr IV .[id number] PRN PRN Reason: Additional IVPB Infusion Remdesivir 100 mg/ Sodium (Chloride) 250 mls @ 125 mls/hr IV Q24H [facility] Stop: 06/03/20 23:59 Morphine Sulfate (Morphine 2 Mg/Ml Syringe) 2 mg IV Q3H PRN PRN PRN Reason: pain 6-10 Last Admin: 05/31/20 07:17 Dose: 2 mg Documented by: Multivitamins/Minerals (Multivitamins,Ther W-Minerals Tablet) 1 tablet PO DAILY ISA Pantoprazole Sodium (Pantoprazole Sodium 20 Mg Tablet) 20 mg PO DAILY [facility] Sodium Chloride (0.9% Saline Lock 10 Ml Syringe) 10 - 40 ml IV UD PRN PRN Reason: SALINE FLUSH Last Admin: 05/31/20 07:17 Dose: 10 ml Documented by: Medical Necessity - Tobacco Use Smoking Status: Former smoker Assessment/Plan All Active Problems (Last Reviewed 05/31/20 @ 00:[address] Dougie Avila MD) COVID-19 (Acute) Elevated d-dimer (Acute) This 70-year-old male admitted on May 30 with shortness of breath, pleuritic chest pain cough, low-grade fever. He was started on azithromycin 4 days ago for cough. 1 Acute hypoxemic respiratory failure secondary to COVID-19 pneumonia, associated with pleural effusion, lobar consolidation and underlying atelectasis: patient is admitted on Covid cohort floor. On IV remdesivir and Decadron. Ceftriaxone 1 g daily. On Mucinex, incentive spirometry and chest physiotherapy. CT chest discussed with the oil well perforator operator. No need for thoracocentesis. Patient has mild leukocytosis. Liver chemistry shows elevated alkaline phosphatase otherwise normal transaminases and total bilirubin. BUN/creatinine slightly elevated. ID consult. 2. Pneumonia possible viral respiratory superinfection with bacterial superinfection: CT chest finding is consistent with right lower lobar consolidation but not groundglass opacity or alveolar infiltrate. Urinary antigens are negative. Sputum culture if patient produces sputum. 3. Elevated D-dimer with hypercoagulable state and high risk of thromboembolism: CTA could not rule out distal PE therefore started on Lovenox therapeutic dose. Lower extremity venous Doppler is ordered. As CT scan chest does not completely rule out PE and D-dimer is high therefore on therapeutic dose of Lovenox. 4. Obstructive sleep apnea: CPAP 5. Gout 6. Dyslipidemia Microbiology Past 72 Hours 05/31/20 04:45 Interface Orders Legionella Antigen - Final 05/31/20 04:45 Interface Orders Streptococcus pneumoniae Antigen (M - Final Laboratory Results 05/30/20 19:38: COVID-19 (PADMINI) Positive 05/30/20 20:00: WBC 11.5 H, RBC 4.89, Hgb 14.2, Hct 42.2, MCV 86.3, MCH 29.0, MCHC 33.6, RDW Std Deviation 40.6, RDW Coeff of Usman 12.9, Plt Count 630 H, MPV 7.9, Immature Gran % (Auto) 0.600, Neut % (Auto) 77.8 H, Lymph % (Auto) 13.8 L, Valencia % (Auto) 6.4, Eos % (Auto) 1.0, Baso % (Auto) 0.4, Absolute Neuts (auto) 8.9 H, Absolute Lymphs (auto) 1.58, Nucleated RBC % 0 05/30/20 20:00: D-Dimer Quant (PE/DVT) 3.64 H* 05/30/20 20:00: Sodium 132 L, Potassium 4.8, Chloride 102, Carbon Dioxide 22.0, Anion Gap 8, BUN 24 H, Creatinine 1.17, Estim Creat Clear Calc 64.48, Est GFR (MDRD) Af Amer 79, Est GFR (MDRD) Non-Af 65, BUN/Creatinine Ratio 20.5 H, Glucose 162 H, Calcium 9.3, Troponin I < 0.015 05/30/20 20:00: Total Bilirubin 0.70, Direct Bilirubin 0.23, AST 36, ALT 51, Alkaline Phosphatase 177 H, Total Protein 8.2, Albumin 3.2, Globulin 5.0 H 05/31/20 05:06: WBC 10.1, RBC 5.41, Hgb 15.7, Hct 47.9, MCV 88.5, MCH 29.0, MCHC 32.8, RDW Std Deviation 42.5, RDW Coeff of Usman 13.0, Plt Count 537 H, MPV 8.2, Immature Gran % (Auto) 0.300, Neut % (Auto) 88.5 H, Lymph % (Auto) 4.2 L, Valencia % (Auto) 6.7, Eos % (Auto) 0.0, Baso % (Auto) 0.3, Absolute Neuts (auto) 8.9 H, Absolute Lymphs (auto) 0.42 L, Nucleated RBC % 0 05/31/20 05:06: Sodium 134 L, Potassium 5.1, Chloride 102, Carbon Dioxide 25.0, Anion Gap 7, BUN 27 H, Creatinine 1.34 H, Estim Creat Clear Calc 56.30, Est GFR (MDRD) Af Amer 68, Est GFR (MDRD) Non-Af 56 L, BUN/Creatinine Ratio 20.1 H, Glucose 163 H, Calcium 9.1, Magnesium 2.1, Total Bilirubin 0.50, AST 37, ALT 48, Alkaline Phosphatase 181 H, Total Protein 7.8, Albumin 2.9 L, Globulin 4.9 H, Albumin/Globulin Ratio 0.6 L Clinical Impression(s) from Imaging Studies Chest X-Ray 05/30/20 19:16 IMPRESSION: Diminished inspiratory effort and bibasilar atelectasis Electronically Signed: Jason Johnson MD at 19:37 EST , Service support , Chest CTA 05/30/20 21:33 IMPRESSION: Left lower lobe infiltrate and a large right pleural effusion with consolidation of the right lower lobe which may be consistent with inflammatory changes.. No definitive evidence for pulmonary embolus given limited visualization of the distal subsegmental vessels. If strong clinical suspicion for pulmonary embolus DOPPLER study of deep venous system of the lower extremities recommended Electronically Signed: Jason Johnson MD at 22:36 EST , Service support , Inpatient E&M: [id number] [facility] Hosp L2
[2020-05-31] MEDS: Pantoprazole Sodium 20 MG Tablet PO (08:55)
[2020-05-31] MEDS: Multivitamins,Ther W-Minerals Tablet 1 TABLET PO (08:55)
[2020-05-31] MEDS: Allopurinol 300 MG Tablet PO (08:55)
[2020-05-31] MEDS: Enoxaparin 100 MG/ML Syringe SC ×2 (10:21→20:25)
--- NOTE | 2020-05-31 11:26 | CASEMGMT ---
RN CM Assessment Note Introduced role of CM to patient via phone to room. Patient is awake, alert and able to participate in assessment Demographics, PCP verified. Pt states he is independent at home. No care needs and no current home oxygen. Patient's is asymptomatic and is speaking with her PCP to be tested today. -Patient states they have supplies @ home, and no concerns on dc with quarantine. COVID 19 TESTIN05/30/20 @ [facility] Presentation: severe R sided chest pain, cough low-grade fever Diagnosis: COVID 19 PCP: Dr. Willoughby Specialists: Dr. Nur, urology Insurance: [employer] Preferred Pharmacy: [facility] Pres[facility] Benefit: yes LNOK: , Laurie Palomino Living Arrangements: Lives independently in own home with his . Denies care needs. Tranportation: drives DME: Cpap (no home oxygen). No other DME. List of DME providers reviewed verbally with patient including [facility] affiliation. Pt updated that a list of providers will be provided by nursing. No preference, and pt is agreeable for [facility] to provide home oxygen if needed. List given to nurse to take in to patient HHC: none SNF: none Patient DC Goals: Home DC Plan: Home, may need home oxygen. recommend testing prior to dc @ rest and with activity. If pt requires home oxygen @ night- will need adapter for oxygen bleed in to cpap. CM available for discharge planning coordination. Contact CM for any concerns/needs that may arise. Javid CALVO RN ACM
--- NOTE | 2020-05-31 11:26 | CASEMGMT ---
RN CM Assessment Note Introduced role of CM to patient via phone to room. Patient is awake, alert and able to participate in assessment Demographics, PCP verified. Pt states he is independent at home. No care needs and no current home oxygen. Patient's is asymptomatic and is speaking with her PCP to be tested today. -Patient states they have supplies @ home, and no concerns on dc with quarantine. COVID 19 TESTIN05/30/20 @ [facility] Presentation: severe R sided chest pain, cough low-grade fever Diagnosis: COVID 19 PCP: Dr. Willoughby Specialists: Dr. Nur, urology Insurance: [facility] Preferred Pharmacy: [facility] Benefit: yes LNOK: , Laurie Palomino Living Arrangements: Lives independently in own home with his . Denies care needs. Tranportation: drives DME: Cpap (no home oxygen). No other DME HHC: none SNF: none Patient DC Goals: Home DC Plan: Home, may need home oxygen. recommend testing prior to dc @ rest and with activity. If pt requires home oxygen @ night- will need adapter for oxygen bleed in to cpap. CM available for discharge planning coordination. Contact CM for any concerns/needs that may arise. Javid CAALN RN ACM
[2020-05-31] MEDS: guaiFENesin 1,200 MG Tablet 1200 MG PO ×2 (15:27→20:25)
--- NOTE | 2020-05-31 15:45 | PCM.HP.ID ---
Problem List (1) COVID-19 Status: Acute Reason for Consult: covid Consulted by: Dr. Rizzo History of Present Illness: The patient is a 70 year old M, sx started 05/18/20 with cough and mild fever. Developed some dyspnea and new R sided chest pain over the past few days. No change in taste or smell. No n/v/d. No sputum. Lives with who has been fine. Came to ED, CT showed no PE but large effusion. Covid pcr (+), admitted on azithro/ceftriaxone/remdesivir/dex/full dose lovenox. Full ROS performed and neg except as noted above. - Medical History Past Medical History (Chronic Problems): Chronic Problems (Last Reviewed 05/31/20 @ 00:[address] Dougie Avila MD) Obstructive sleep apnea (Chronic) High cholesterol (Chronic) Allergies/Adverse Reactions: Allergies No Known Allergies Allergy (Verified 05/30/20 18:58) Home Medications: Ambulatory Orders Medication Instructions Recorded allopurinol 300 mg tablet 1 tab PO DAILY MDD gout 12/12/19 atorvastatin 10 mg tablet 1 tab PO DAILY 12/12/19 rqxqcatl-ayf-uetkm acid 300 1 tab PO DAILY 12/12/19 mcg-lycopene 600 mcg-lutein 300 mcg tablet omeprazole 20 mg capsule,delayed 1 tab PO DAILY 12/12/19 release sildenafil 100 mg tablet 100 ea PO PRN PRN 12/12/19 Azithromycin 250 mg PO DAILY 05/30/20 - Social History SMOKING STATUS:: Former smoker Vital Signs Temp Pulse Resp BP Pulse Ox 97.7 F L 89 18 139/76 H 94 05/31/20 12:23 05/31/20 12:23 05/31/20 12:23 05/31/20 12:23 05/31/20 13:14 Oxygen Flow Rate (L/min) 4 Oxygen Delivery Method Nasal Cannula Weight: 101.8 kg Body Mass Index (BMI) 30.4 Microbiology Past 72 Hours 05/31/20 04:45 Legionella Antigen - Final Interface Orders Streptococcus pneumoniae Antigen (M - Final Laboratory Tests Past 24 Hrs 05/30/20 05/30/20 05/30/20 19:38 20:00 20:00 WBC 11.5 H RBC 4.89 Hgb 14.2 Hct 42.2 MCV 86.3 MCH 29.0 MCHC 33.6 RDW Std Deviation 40.6 RDW Coeff of Usman 12.9 Plt Count 630 H MPV 7.9 Immature Gran % (Auto) 0.600 Neut % (Auto) 77.8 H Lymph % (Auto) 13.8 L [place] % (Auto) 6.4 Eos % (Auto) 1.0 Baso % (Auto) 0.4 Absolute Neuts (auto) 8.9 H Absolute Lymphs (auto) 1.58 Nucleated RBC % 0 D-Dimer Quant (PE/DVT) 3.64 H* Sodium Potassium Chloride Carbon Dioxide Anion Gap BUN Creatinine Estim Creat Clear Calc Est GFR (MDRD) Af Amer Est GFR (MDRD) Non-Af BUN/Creatinine Ratio Glucose Calcium Magnesium Total Bilirubin Direct Bilirubin AST ALT Alkaline Phosphatase Troponin I Total Protein Albumin Globulin Albumin/Globulin Ratio COVID-19 (PADMINI) Positive 05/30/20 05/30/20 05/31/20 20:00 20:00 05:06 WBC 10.1 RBC 5.41 Hgb 15.7 Hct 47.9 MCV 88.5 MCH 29.0 MCHC 32.8 RDW Std Deviation 42.5 RDW Coeff of Usman 13.0 Plt Count 537 H MPV 8.2 Immature Gran % (Auto) 0.300 Neut % (Auto) 88.5 H Lymph % (Auto) 4.2 L [place] % (Auto) 6.7 Eos % (Auto) 0.0 Baso % (Auto) 0.3 Absolute Neuts (auto) 8.9 H Absolute Lymphs (auto) 0.42 L Nucleated RBC % 0 D-Dimer Quant (PE/DVT) Sodium 132 L Potassium 4.8 Chloride 102 Carbon Dioxide 22.0 Anion Gap 8 BUN 24 H Creatinine 1.17 Estim Creat Clear Calc 64.48 Est GFR (MDRD) Af Amer 79 Est GFR (MDRD) Non-Af 65 BUN/Creatinine Ratio 20.5 H Glucose 162 H Calcium 9.3 Magnesium Total Bilirubin 0.70 Direct Bilirubin 0.23 AST 36 ALT 51 Alkaline Phosphatase 177 H Troponin I < 0.015 Total Protein 8.2 Albumin 3.2 Globulin 5.0 H Albumin/Globulin Ratio COVID-19 (PADMINI) 05/31/20 05:06 WBC RBC Hgb Hct MCV MCH MCHC RDW Std Deviation RDW Coeff of Usman Plt Count MPV Immature Gran % (Auto) Neut % (Auto) Lymph % (Auto) [place] % (Auto) Eos % (Auto) Baso % (Auto) Absolute Neuts (auto) Absolute Lymphs (auto) Nucleated RBC % D-Dimer Quant (PE/DVT) Sodium 134 L Potassium 5.1 Chloride 102 Carbon Dioxide 25.0 Anion Gap 7 BUN 27 H Creatinine 1.34 H Estim Creat Clear Calc 56.30 Est GFR (MDRD) Af Amer 68 Est GFR (MDRD) Non-Af 56 L BUN/Creatinine Ratio 20.1 H Glucose 163 H Calcium 9.1 Magnesium 2.1 Total Bilirubin 0.50 Direct Bilirubin AST 37 ALT 48 Alkaline Phosphatase 181 H Troponin I Total Protein 7.8 Albumin 2.9 L Globulin 4.9 H Albumin/Globulin Ratio 0.6 L COVID-19 (PADMINI) - Other Studies Radiology: [] reviewed Other Studies: [] Route of nutrition/ use of supplements: [] Nutritional Intake: [] IV Site: [] Snider Catheter: [] - Physical Exam General: Alert, Oriented x3, Cooperative, No apparent distress HEENT: Atraumatic, PERRLA, EOMI Neck: Supple, No Nodes Lungs: Clear to auscultation, Diminished Cardiovascular: Regular rate, Regular Rhythm Abdomen: Soft, Non Tender, Non-Distended Extremities: No edema Skin: No rashes Musculoskeletal: No Tenderness to Palpation of Joints or Extremities Neurological: Cranial nerves II-XII grossly intact - Assessment/Plan Antibiotics: [] Assessment/Plan: [] Active and Suspected Problems (Last Reviewed 05/31/20 @ 00:[address] Dougie Avila MD) COVID-19 (Acute) Elevated d-dimer (Acute) covid with hypoxia - sx started 05/18/20. asymptomatic. CT showed no PE, but was suboptimal and large effusion present. Fever to 101.6 here, wbc normal, d-dimer 3.6. On 4L this AM. On dex, remdesivir, therapeutic lovenox. Uag neg. Will stop azithro, keep ceftriaxone for now, but low suspicion for bacterial pneumonia. Will follow, thank you
[2020-05-31] MEDS: Atorvastatin Calcium 10 MG Tablet PO (20:25)
[2020-05-31] MEDS: Ceftriaxone 1 GM/50 ML BAG IV (21:35)
[2020-06-01] VITALS (10 sets, daily range): BP systolic 139–158; BP diastolic 81–99; PULSE 88–120; RESP 18–20; TEMP 36.2–37; O2SAT 94–96
--- NOTE | 2020-06-01 06:52 | PN_ITS ---
Patient Problems: Active and Suspected Problems (Last Reviewed 05/31/20 @ 00:[address] Dougie Avila MD) COVID-19 (Acute) Elevated d-dimer (Acute) Subjective: The patient was seen and examined at the bedside this morning. Events from the last 24 hours have been reviewed. The patient is currently afebrile, hemodynamically stable and maintaining appropriate oxygen saturations on 3 L/min via nasal cannula. The patient remains systemically anticoagulated on Lovenox. He remains on Decadron and remdesivir as well. Liver and renal function are stable. Objective: The patient's most recent lab work, culture data and imaging studies have all been personally reviewed. Coronavirus PCR was positive on May 30. Lower extremity Doppler study on May 31 was negative for DVT. - Physical Exam Vitals/I&O's: Vital Signs Temp Pulse Resp BP Pulse Ox 97.9 F 95 18 150/87 H 94 06/01/20 02:52 06/01/20 03:00 06/01/20 02:52 06/01/20 02:52 06/01/20 02:52 Oxygen Flow Rate (L/min) 3 Oxygen Delivery Method Nasal Cannula Weight: 224 lb 6.889 oz Body Mass Index (BMI) 30.4 Intake and Output for Last 24 Hours 05/30/20 05/31/20 06/01/20 23:59 23:59 23:59 Intake Total 50 / 50 3132.5 / 3132.5 450 / 450 Output Total 200 / 200 Balance 50 / 50 2932.5 / 2932.5 450 / 450 General: Alert, Cooperative, No apparent distress HEENT: Atraumatic, Normocephalic Oral: No Gingival or Mucosal Lesions/ Ulcerations Neck: Supple, No Nodes, Trachea Midline Lungs: No rhonchi, No wheeze, No rales, Diminished Cardiovascular: Regular rate, Regular Rhythm, Normal S1, Normal S2, No murmurs Abdomen: Bowel Sounds Present, Soft, Non Tender, Obese Extremities: No clubbing, No cyanosis, No edema Skin: No breakdown Musculoskeletal: No Tenderness to Palpation of Joints or Extremities Lymphatic: No Cervical, Supraclavicular, or Inguinal Adenopathy Neurological: Cranial nerves II-XII grossly intact, Neuro grossly intact Psych/Mental Status: Normal Affect, Appropriate Labs (Last 48 Hours) 05/30/20 05/30/20 05/30/20 19:38 20:00 20:00 WBC 11.5 H RBC 4.89 Hgb 14.2 Hct 42.2 MCV 86.3 MCH 29.0 MCHC 33.6 RDW Std Deviation 40.6 RDW Coeff of Usman 12.9 Plt Count 630 H MPV 7.9 Immature Gran % (Auto) 0.600 Neut % (Auto) 77.8 H Lymph % (Auto) 13.8 L [place] % (Auto) 6.4 Eos % (Auto) 1.0 Baso % (Auto) 0.4 Absolute Neuts (auto) 8.9 H Absolute Lymphs (auto) 1.58 Nucleated RBC % 0 D-Dimer Quant (PE/DVT) 3.64 H* Sodium Potassium Chloride Carbon Dioxide Anion Gap BUN Creatinine Estim Creat Clear Calc Est GFR (MDRD) Af Amer Est GFR (MDRD) Non-Af BUN/Creatinine Ratio Glucose Calcium Magnesium Total Bilirubin Direct Bilirubin AST ALT Alkaline Phosphatase Troponin I Total Protein Albumin Globulin Albumin/Globulin Ratio COVID-19 (PADMINI) Positive 05/30/20 05/30/20 05/31/20 20:00 20:00 05:06 WBC 10.1 RBC 5.41 Hgb 15.7 Hct 47.9 MCV 88.5 MCH 29.0 MCHC 32.8 RDW Std Deviation 42.5 RDW Coeff of Usman 13.0 Plt Count 537 H MPV 8.2 Immature Gran % (Auto) 0.300 Neut % (Auto) 88.5 H Lymph % (Auto) 4.2 L [place] % (Auto) 6.7 Eos % (Auto) 0.0 Baso % (Auto) 0.3 Absolute Neuts (auto) 8.9 H Absolute Lymphs (auto) 0.42 L Nucleated RBC % 0 D-Dimer Quant (PE/DVT) Sodium 132 L Potassium 4.8 Chloride 102 Carbon Dioxide 22.0 Anion Gap 8 BUN 24 H Creatinine 1.17 Estim Creat Clear Calc 64.48 Est GFR (MDRD) Af Amer 79 Est GFR (MDRD) Non-Af 65 BUN/Creatinine Ratio 20.5 H Glucose 162 H Calcium 9.3 Magnesium Total Bilirubin 0.70 Direct Bilirubin 0.23 AST 36 ALT 51 Alkaline Phosphatase 177 H Troponin I < 0.015 Total Protein 8.2 Albumin 3.2 Globulin 5.0 H Albumin/Globulin Ratio COVID-19 (PADMINI) 05/31/20 06/01/20 06/01/20 05:06 05:50 05:50 WBC 16.6 H RBC 4.94 Hgb 14.0 Hct 43.1 MCV 87.2 MCH 28.3 MCHC 32.5 RDW Std Deviation 41.9 RDW Coeff of Usman 13.1 Plt Count 492 H MPV 8.7 Immature Gran % (Auto) Neut % (Auto) Lymph % (Auto) [place] % (Auto) Eos % (Auto) Baso % (Auto) Absolute Neuts (auto) Absolute Lymphs (auto) Nucleated RBC % D-Dimer Quant (PE/DVT) Sodium 134 L 136 Potassium 5.1 5.0 Chloride 102 102 Carbon Dioxide 25.0 25.0 Anion Gap 7 9 BUN 27 H 24 H Creatinine 1.34 H 0.98 Estim Creat Clear Calc 56.30 76.98 Est GFR (MDRD) Af Amer 68 97 Est GFR (MDRD) Non-Af 56 L 81 BUN/Creatinine Ratio 20.1 H 24.5 H Glucose 163 H 124 H Calcium 9.1 9.0 Magnesium 2.1 Total Bilirubin 0.50 0.40 Direct Bilirubin AST 37 19 ALT 48 33 Alkaline Phosphatase 181 H 155 H Troponin I Total Protein 7.8 6.2 L Albumin 2.9 L 2.5 L Globulin 4.9 H 3.7 Albumin/Globulin Ratio 0.6 L 0.7 L COVID-19 (PADMINI) Microbiology 05/31/20 04:45 Interface Orders Legionella Antigen - Final 05/31/20 04:45 Interface Orders Streptococcus pneumoniae Antigen (M - Final Clinical Impression(s) from Imaging Studies Chest X-Ray 05/30/20 19:16 IMPRESSION: Diminished inspiratory effort and bibasilar atelectasis Electronically Signed: Jason Johnson MD at 19:37 EST , Service support , Chest CTA 05/30/20 21:33 IMPRESSION: Left lower lobe infiltrate and a large right pleural effusion with consolidation of the right lower lobe which may be consistent with inflammatory changes.. No definitive evidence for pulmonary embolus given limited visualization of the distal subsegmental vessels. If strong clinical suspicion for pulmonary embolus DOPPLER study of deep venous system of the lower extremities recommended Electronically Signed: Jason Johnson MD at 22:36 EST , Service support , Current Medications Acetaminophen (Acetaminophen 325 Mg Tablet) 650 mg PO Q6H PRN PRN PRN Reason: pain 1-10/fever Last Admin: 05/31/20 03:33 Dose: 650 mg Documented by: Allopurinol (Allopurinol 300 Mg Tablet) 300 mg PO DAILY [facility] Last Admin: 05/31/20 08:55 Dose: 300 mg Documented by: Atorvastatin Calcium (Atorvastatin Calcium 10 Mg Tablet) 10 mg PO QHS [facility] Last Admin: 05/31/20 20:25 Dose: 10 mg Documented by: Dexamethasone (Dexamethasone 4 Mg Tablet) 6 mg PO DAILY [facility] Stop: 06/08/20 10:01 Last Admin: 05/31/20 08:54 Dose: 6 mg Documented by: Enoxaparin Sodium (Enoxaparin 100 Mg/Ml Syringe) 100 mg SC Q12 [facility] Last Admin: 05/31/20 20:25 Dose: 100 mg Documented by: Guaifenesin (Guaifenesin 1,200 Mg Tablet) 1,200 mg PO BID [facility] Last Admin: 05/31/20 20:25 Dose: 1,200 mg Documented by: Ceftriaxone Sodium (Rocephin) 1 gm in 50 mls @ 100 mls/hr IV Q24H [facility] Last Infusion: 05/31/20 22:05 Dose: Infused Documented by: Sodium Chloride () 250 mls @ 15 mls/hr IV .[id number] PRN PRN Reason: Saline Flush Sodium Chloride () 250 mls @ 15 mls/hr IV .[id number] PRN PRN Reason: Additional IVPB Infusion Remdesivir 100 mg/ Sodium (Chloride) 250 mls @ 125 mls/hr IV Q24H [facility] Stop: 06/03/20 23:59 Last Infusion: 06/01/20 00:18 Dose: Infused Documented by: Morphine Sulfate (Morphine 2 Mg/Ml Syringe) 2 mg IV Q3H PRN PRN PRN Reason: pain 6-10 Last Admin: 05/31/20 12:15 Dose: 2 mg Documented by: Multivitamins/Minerals (Multivitamins,Ther W-Minerals Tablet) 1 tablet PO DAILY [facility] Last Admin: 05/31/20 08:55 Dose: 1 tablet Documented by: Pantoprazole Sodium (Pantoprazole Sodium 20 Mg Tablet) 20 mg PO DAILY [facility] Last Admin: 05/31/20 08:55 Dose: 20 mg Documented by: Sodium Chloride (0.9% Saline Lock 10 Ml Syringe) 10 - 40 ml IV UD PRN PRN Reason: SALINE FLUSH Last Admin: 05/31/20 21:32 Dose: 10 ml Documented by: Medical Necessity - Tobacco Use Smoking Status: Former smoker Assessment/Plan All Active Problems (Last Reviewed 05/31/20 @ 00:[address] Dougie Avila MD) COVID-19 (Acute) Elevated d-dimer (Acute) RECOMMENDATIONS: 1. Continue empiric antimicrobials per ID recommendations. 2. Continue Decadron by mouth for the next 10 days. 3. Continue remdesivir. Monitor liver and renal function accordingly. 4. Wean supplemental oxygen to maintain saturations at or above 90%. 5. Continue therapeutic Lovenox. 6. Continue nocturnal CPAP therapy per home regimen. IMPRESSIONS: 1. Acute hypoxemic respiratory failure secondary to COVID-19 pneumonia The patient presented to the hospital with pleuritic type chest pain and a new supplemental oxygen requirement. Coronavirus PCR was positive. Accordingly, the patient was started on Decadron and remdesivir. Continue to monitor liver and renal function accordingly. Wean supplemental oxygen to maintain saturations at or above 90%. Given the nondiagnostic nature of the patient's CTA chest and elevated D-dimer level, recommend continuing therapeutic Lovenox. 2. Elevated D-dimer Given that the patient presented to the hospital with tachycardia, tachypnea and hypoxemia, along with elevated D-dimer level, I would recommend that therapeutic Lovenox be continued. CTA chest was a bit suboptimal for the evaluation of PE. 3. History of obstructive sleep apnea Orders for nocturnal CPAP therapy will be placed, per home regimen. 4. Obesity/hyperlipidemia/GERD Complicates care, management, recovery and prognosis. Continue home medications as indicated. CODE status: Discussed CODE status at length including difference between FULL code, DNR-CCA and DNR-CC status. Following discussions about the differences in these status, patient requested FULL CODE STATUS. This note was generated with [employer] software. It may contain incorrect words, spelling, and punctuation that were not noted in checking the note before signing. Inpatient E&M: 52228 Subs Hosp L2
[2020-06-01 07:01] LABS: Hematocrit 43.1 % (40-54); Mean Corp Hgb Conc 32.5 g/dL (32-36); Mean Corpuscular Hgb 28.3 pg (27.0-32.0); Mean Corpuscular Volume 87.2 fL (80-94); Mean Platelet Vol. 8.7 fl (6.2-12.0); Platelet Count 492 K/mm3 (150-450); RBC Distribution Width CV 13.1 % (11.6-14.6); RBC Distribution Width SD 41.9 fl (35.1-43.9); Red Blood Count 4.94 M/mm3 (4.6-6.2); White Blood Count 16.6 K/mm3 (4.4-11.0)
[2020-06-01 07:31] LABS: ALB/GLOB Ratio 0.7 RATIO (0.9-2.4); AST(SGOT) 19 U/L (15-37); Alanine Aminotransfer ALT/SGPT 33 U/L (16-61); Albumin, Serum 2.5 g/dL (3.2-5.0); Alkaline Phosphatase 155 U/L (45-117); Anion Gap 9 (5-15); BUN 24 mg/dL (7-18); BUN/Creat Ratio 24.5 RATIO (10-20); Chloride 102 mmol/L (98-107); Creatinine, Serum 0.98 mg/dL (0.70-1.30); EST Glomerular Filtration Rate 81 mL/min (>60); Est Glom Filt Rate - Afr Amer 97 mL/min (>60); Estimated Creatinine Clearance 76.98 ml/min; Globulin 3.7 g/dL (2.2-4.2); Glucose 124 mg/dL (74-106); Protein, Total 6.2 g/dL (6.4-8.2); Sodium Level 136 mmol/L (136-145)
--- NOTE | 2020-06-01 08:53 | PN_ITS ---
Patient Problems: Active and Suspected Problems (Last Reviewed 05/31/20 @ 00:[address] Dougie Avila MD) COVID-19 (Acute) Elevated d-dimer (Acute) Reason for Visit: Follow-up for COVID-19 pneumonia with high suspicion of PE and pleuritic chest pain Objective: Patient was COVID-19 PCR negative in March 2020 prior to appendectomy and May 22 and then positive on May 30. I talked to the patient on phone in his room prior to seeing him. Patient has gradual onset of symptoms with cough, low-grade fever and shortness of breath on May 18, 2020 which gradually progressed and therefore went to PCP and was tested negative for Covid PCR on May 22. He was on symptomatic management with Tylenol but her symptoms persisted and got worse, was put on antibiotic azithromycin and had 4 doses prior to admission. He got severe right-sided pleuritic rib pain on the day of admission. Prior to that he had appendectomy for gangrenous appendix with localized peritonitis for which he was admitted in March 2020. Clinical perspective, right-sided pleuritic chest pain is suggestive of distal right-sided Gil embolism. Chest pain is much better, 2?3/10 intensity which was 8-10 yesterday. Its mainly on deep coughing or deep inspiration. Blood pressure is elevated Physical exam: General: Alert, Oriented x3, Cooperative HEENT: Atraumatic, PERRLA, EOMI, Normocephalic Oral: No Gingival or Mucosal Lesions/ Ulcerations Neck: Supple, No JVD, Negative Carotid Bruits Lungs: Air entry diminished in posterior half right lung. Mild expiratory wheezing. Cardiovascular: Regular rate, Regular Rhythm, Normal S1, Normal S2, No murmurs Abdomen: Bowel Sounds Present, Soft, Non Tender, Non-Distended : No renal angle tenderness. No suprapubic tenderness. Extremities: No edema, Capillary Refill Less than 3 Seconds Skin: No rashes, No breakdown Musculoskeletal: No Tenderness to Palpation of Joints or Extremities Neurological: Cranial nerves II-XII grossly intact, Deep Tendon Reflexes 2+/4 and Symmetrical, Neuro grossly intact Psych/Mental Status: Normal Affect, Appropriate. Vitals/I&O's: Vital Signs Temp Pulse Resp BP Pulse Ox 97.9 F 95 18 150/87 H 94 06/01/20 02:52 06/01/20 03:00 06/01/20 02:52 06/01/20 02:52 06/01/20 02:52 Oxygen Flow Rate (L/min) 3 Oxygen Delivery Method Nasal Cannula Weight: 224 lb 6.889 oz Body Mass Index (BMI) 30.4 Intake and Output for Last 24 Hours 05/30/20 05/31/20 06/01/20 23:59 23:59 23:59 Intake Total 50 / 50 3132.5 / 3132.5 450 / 450 Output Total 200 / 200 Balance 50 / 50 2932.5 / 2932.5 450 / 450 Microbiology Past 72 Hours 05/31/20 04:45 Interface Orders Legionella Antigen - Final 05/31/20 04:45 Interface Orders Streptococcus pneumoniae Antigen (M - Final Laboratory Results 06/01/20 05:50: WBC 16.6 H, RBC 4.94, Hgb 14.0, Hct 43.1, MCV 87.2, MCH 28.3, MCHC 32.5, RDW Std Deviation 41.9, RDW Coeff of Usman 13.1, Plt Count 492 H, MPV 8.7 06/01/20 05:50: Sodium 136, Potassium 5.0, Chloride 102, Carbon Dioxide 25.0, Anion Gap 9, BUN 24 H, Creatinine 0.98, Estim Creat Clear Calc 76.98, Est GFR (MDRD) Af Amer 97, Est GFR (MDRD) Non-Af 81, BUN/Creatinine Ratio 24.5 H, Glucose 124 H, Calcium 9.0, Total Bilirubin 0.40, AST 19, ALT 33, Alkaline Phosphatase 155 H, Total Protein 6.2 L, Albumin 2.5 L, Globulin 3.7, Albumin/Globulin Ratio 0.7 L Current Medications Acetaminophen (Acetaminophen 325 Mg Tablet) 650 mg PO Q6H PRN PRN PRN Reason: pain 1-10/fever Last Admin: 05/31/20 03:33 Dose: 650 mg Documented by: Allopurinol (Allopurinol 300 Mg Tablet) 300 mg PO DAILY [facility] Last Admin: 05/31/20 08:55 Dose: 300 mg Documented by: Atorvastatin Calcium (Atorvastatin Calcium 10 Mg Tablet) 10 mg PO QHS [facility] Last Admin: 05/31/20 20:25 Dose: 10 mg Documented by: Dexamethasone (Dexamethasone 4 Mg Tablet) 6 mg PO DAILY [facility] Stop: 06/08/20 10:01 Last Admin: 05/31/20 08:54 Dose: 6 mg Documented by: Enoxaparin Sodium (Enoxaparin 100 Mg/Ml Syringe) 100 mg SC Q12 [facility] Last Admin: 05/31/20 20:25 Dose: 100 mg Documented by: Guaifenesin (Guaifenesin 1,200 Mg Tablet) 1,200 mg PO BID [facility] Last Admin: 05/31/20 20:25 Dose: 1,200 mg Documented by: Ceftriaxone Sodium (Rocephin) 1 gm in 50 mls @ 100 mls/hr IV Q24H [facility] Last Infusion: 05/31/20 22:05 Dose: Infused Documented by: Sodium Chloride () 250 mls @ 15 mls/hr IV .[id number] PRN PRN Reason: Saline Flush Sodium Chloride () 250 mls @ 15 mls/hr IV .[id number] PRN PRN Reason: Additional IVPB Infusion Remdesivir 100 mg/ Sodium (Chloride) 250 mls @ 125 mls/hr IV Q24H [facility] Stop: 06/03/20 23:59 Last Infusion: 06/01/20 00:18 Dose: Infused Documented by: Morphine Sulfate (Morphine 2 Mg/Ml Syringe) 2 mg IV Q3H PRN PRN PRN Reason: pain 6-10 Last Admin: 05/31/20 12:15 Dose: 2 mg Documented by: Multivitamins/Minerals (Multivitamins,Ther W-Minerals Tablet) 1 tablet PO DAILY [facility] Last Admin: 05/31/20 08:55 Dose: 1 tablet Documented by: Pantoprazole Sodium (Pantoprazole Sodium 20 Mg Tablet) 20 mg PO DAILY [facility] Last Admin: 05/31/20 08:55 Dose: 20 mg Documented by: Sodium Chloride (0.9% Saline Lock 10 Ml Syringe) 10 - 40 ml IV UD PRN PRN Reason: SALINE FLUSH Last Admin: 05/31/20 21:32 Dose: 10 ml Documented by: Medical Necessity - Tobacco Use Smoking Status: Former smoker Assessment/Plan All Active Problems (Last Reviewed 05/31/20 @ 00:[address] Dougie Avila MD) COVID-19 (Acute) Elevated d-dimer (Acute) This 70-year-old male admitted on May 30 with shortness of breath, pleuritic chest pain cough, low-grade fever. He was started on azithromycin 4 days ago for cough. 1 Acute hypoxemic respiratory failure secondary to COVID-19 pneumonia, associated with pleural effusion, lobar consolidation and underlying atelectasis: patient is admitted on Covid cohort floor. On IV remdesivir and Decadron. Ceftriaxone 1 g daily. On Mucinex, incentive spirometry and chest physiotherapy. CT chest discussed with the hearing aid mechanic. No need for thoracocentesis. Patient has mild leukocytosis. Liver chemistry shows elevated alkaline phosphatase otherwise normal transaminases and total bilirubin. BUN/creatinine slightly elevated. ID consult. 06/01: Patient cough, shortness of breath and chest pain is better. Continue Decadron, remdesivir and Lovenox. Discussed with ID. 2. Pneumonia possible viral respiratory superinfection with bacterial superinfection: CT chest finding is consistent with right lower lobar consolidation but not groundglass opacity or alveolar infiltrate. Urinary antigens are negative. Sputum culture if patient produces sputum. 3. Elevated D-dimer with hypercoagulable state and high risk of thromboe mbolism: CTA could not rule out distal PE therefore started on Lovenox therapeutic dose. Lower extremity venous Doppler is ordered. As CT scan chest does not completely rule out PE and D-dimer is high therefore on therapeutic dose of Lovenox. 06/01: Patient clinical features and circumstances are suggestive of distal right PE. Patient will need at least 3 months of anticoagulant and follow-up in pulmonary clinic. May need VQ scan as an outpatient. 4. Hypertension: Blood pressure is elevated 158/99. Patient was on antihypertensive medication but was taken off by PCP. Started on HCTZ 12.5 mg scheduled daily and hydralazine 10 mg IV every 4 hourly as needed for systolic blood pressure more than 180 MNG. Obstructive sleep apnea: CPAP 5. Gout 6. Dyslipidemia Microbiology Past 72 Hours 05/31/20 04:45 Interface Orders Legionella Antigen - Final 05/31/20 04:45 Interface Orders Streptococcus pneumoniae Antigen (M - Final Laboratory Results 06/01/20 05:50: WBC 16.6 H, RBC 4.94, Hgb 14.0, Hct 43.1, MCV 87.2, MCH 28.3, MCHC 32.5, RDW Std Deviation 41.9, RDW Coeff of Usman 13.1, Plt Count 492 H, MPV 8.7 06/01/20 05:50: Sodium 136, Potassium 5.0, Chloride 102, Carbon Dioxide 25.0, Anion Gap 9, BUN 24 H, Creatinine 0.98, Estim Creat Clear Calc 76.98, Est GFR (MDRD) Af Amer 97, Est GFR (MDRD) Non-Af 81, BUN/Creatinine Ratio 24.5 H, Glucose 124 H, Calcium 9.0, Total Bilirubin 0.40, AST 19, ALT 33, Alkaline Phosphatase 155 H, Total Protein 6.2 L, Albumin 2.5 L, Globulin 3.7, Albumin/Globulin Ratio 0.7 L Clinical Impression(s) from Imaging Studies Chest X-Ray 05/30/20 19:16 IMPRESSION: Diminished inspiratory effort and bibasilar atelectasis Electronically Signed: Jason Johnson MD at 19:37 EST , Service support , Chest CTA 05/30/20 21:33 IMPRESSION: Left lower lobe infiltrate and a large right pleural effusion with consolidation of the right lower lobe which may be consistent with inflammatory changes.. No definitive evidence for pulmonary embolus given limited visualization of the distal subsegmental vessels. If strong clinical suspicion for pulmonary embolus DOPPLER study of deep venous system of the lower extremities recommended Electronically Signed: Jason Johnson MD at 22:36 EST , Service support , Inpatient E&M: [id number] [facility] H[facility] L2
[2020-06-01] MEDS: guaiFENesin 1,200 MG Tablet 1200 MG PO ×2 (11:39→21:27)
[2020-06-01] MEDS: Allopurinol 300 MG Tablet PO (11:39)
[2020-06-01] MEDS: dexAMETHasone 4 MG Tablet 6 MG PO (11:39)
[2020-06-01] MEDS: Enoxaparin 100 MG/ML Syringe SC ×2 (11:39→21:27)
[2020-06-01] MEDS: Pantoprazole Sodium 20 MG Tablet PO (11:39)
[2020-06-01] MEDS: Multivitamins,Ther W-Minerals Tablet 1 TABLET PO (11:40)
--- NOTE | 2020-06-01 12:42 | NURSING ---
BP and HR high, Pt states his PCP took him off his BP meds [address] Rizzo aware of high BP and HR and that he was on medicine in the past for it.
--- NOTE | 2020-06-01 14:19 | CASEMGMT ---
Addendum entered by Marija Arredondo 06/01/20 14:47: Per Dr Rizzo, pt may be ready to discharge this weekend and he will send pt home on Eliquis, which has been e-scribed to [facility]. Per Toby, pharmacist, she applied the 30-day free Eliquis savings card and medication will be free for pt. They will deliver it to pt's room to take home w/him @ d/c. Call placed to pt's room and he was made aware of above. He was also made aware of possible need for home O2, explained testing, and that if he requires continuous O2, that he will also need to bleed this in through his CPAP, and that adapter would be provided by [employer]. He voices understanding and appreciation. He denies having any questions or further discharge planning needs. Original Note: MARIA EUGENIA MUNOZ NOTE: Pt remains on 3 L/M. He does not have home O2. Will need home oxygen ambulatory testing done prior to d/c. If pt qualifies for Home O2, Green sheet placed on chart w/instructions for Home O2 set-up through [employer]. If pt requires continuous O2, he will need adapter for O2 bleed-in through CPAP. Script prepared for Home O2 and on pt's chart ready for doctor's signature. Script includes need of adapter. O2 liter flow for CPAP bleed-in will be the same as the continuous liter flow and should be included on script. (If pt requires O2 just with exertion, he will not need O2 bleed-in through CPAP or the adapter). Lucille CALVO RN, CM
--- NOTE | 2020-06-01 14:44 | PN.ID_ITS ---
Patient Problems: Active and Suspected Problems (Last Reviewed 05/31/20 @ 00:[address] Dougie Avila MD) COVID-19 (Acute) Elevated d-dimer (Acute) Subjective: Feeling better, breathing improved, no fever - Physical Exam Vitals/I&O's: Vital Signs Temp Pulse Resp BP Pulse Ox 98.2 F 95 20 H 158/99 H 96 06/01/20 11:00 06/01/20 12:15 06/01/20 11:00 06/01/20 11:00 06/01/20 14:17 Oxygen Flow Rate (L/min) 3 Oxygen Delivery Method Room Air Weight: 101.8 kg Body Mass Index (BMI) 30.4 Intake and Output for Last 24 Hours 05/30/20 05/31/20 06/01/20 23:59 23:59 23:59 Intake Total 50 / 50 3132.5 / 3132.5 450 / 450 Output Total 200 / 200 Balance 50 / 50 2932.5 / 2932.5 450 / 450 General: Alert, Cooperative, No apparent distress Lungs: Diminished Cardiovascular: Regular rate, Regular Rhythm Abdomen: Soft, Non Tender, Non-Distended Skin: No rashes Microbiology Past 72 Hours 05/31/20 04:45 Interface Orders Legionella Antigen - Final 05/31/20 04:45 Interface Orders Streptococcus pneumoniae Antigen (M - Final Laboratory Results 06/01/20 05:50: WBC 16.6 H, RBC 4.94, Hgb 14.0, Hct 43.1, MCV 87.2, MCH 28.3, MCHC 32.5, RDW Std Deviation 41.9, RDW Coeff of Usman 13.1, Plt Count 492 H, MPV 8.7 06/01/20 05:50: Sodium 136, Potassium 5.0, Chloride 102, Carbon Dioxide 25.0, Anion Gap 9, BUN 24 H, Creatinine 0.98, Estim Creat Clear Calc 76.98, Est GFR (MDRD) Af Amer 97, Est GFR (MDRD) Non-Af 81, BUN/Creatinine Ratio 24.5 H, Glucose 124 H, Calcium 9.0, Total Bilirubin 0.40, AST 19, ALT 33, Alkaline Phosphatase 155 H, Total Protein 6.2 L, Albumin 2.5 L, Globulin 3.7, Albumin/Globulin Ratio 0.7 L Current Medications Acetaminophen (Acetaminophen 325 Mg Tablet) 650 mg PO Q6H PRN PRN PRN Reason: pain 1-10/fever Last Admin: 05/31/20 03:33 Dose: 650 mg Documented by: Allopurinol (Allopurinol 300 Mg Tablet) 300 mg PO DAILY [facility] Last Admin: 06/01/20 11:39 Dose: 300 mg Documented by: Atorvastatin Calcium (Atorvastatin Calcium 10 Mg Tablet) 10 mg PO QHS [facility] Last Admin: 05/31/20 20:25 Dose: 10 mg Documented by: Dexamethasone (Dexamethasone 4 Mg Tablet) 6 mg PO DAILY [facility] Stop: 06/08/20 10:01 Last Admin: 06/01/20 11:39 Dose: 6 mg Documented by: Enoxaparin Sodium (Enoxaparin 100 Mg/Ml Syringe) 100 mg SC Q12 [facility] Last Admin: 06/01/20 11:39 Dose: 100 mg Documented by: Guaifenesin (Guaifenesin 1,200 Mg Tablet) 1,200 mg PO BID [facility] Last Admin: 06/01/20 11:39 Dose: 1,200 mg Documented by: Hydralazine HCl (Hydralazine 20 Mg/Ml Vial) 10 mg IV Q4H PRN PRN PRN Reason: SBP more than 180 mmHg Hydrochlorothiazide (Hydrochlorothiazide 12.5mg) 12.5 mg PO DAILY [facility] Ceftriaxone Sodium (Rocephin) 1 gm in 50 mls @ 100 mls/hr IV Q24H [facility] Last Infusion: 05/31/20 22:05 Dose: Infused Documented by: Sodium Chloride () 250 mls @ 15 mls/hr IV .[id number] PRN PRN Reason: Saline Flush Sodium Chloride () 250 mls @ 15 mls/hr IV .[id number] PRN PRN Reason: Additional IVPB Infusion Remdesivir 100 mg/ Sodium (Chloride) 250 mls @ 125 mls/hr IV Q24H [facility] Stop: 06/03/20 23:59 Last Infusion: 06/01/20 00:18 Dose: Infused Documented by: Morphine Sulfate (Morphine 2 Mg/Ml Syringe) 2 mg IV Q3H PRN PRN PRN Reason: pain 6-10 Last Admin: 05/31/20 12:15 Dose: 2 mg Documented by: Multivitamins/Minerals (Multivitamins,Ther W-Minerals Tablet) 1 tablet PO DAILY [facility] Last Admin: 06/01/20 11:40 Dose: 1 tablet Documented by: Pantoprazole Sodium (Pantoprazole Sodium 20 Mg Tablet) 20 mg PO DAILY [facility] Last Admin: 06/01/20 11:39 Dose: 20 mg Documented by: Sodium Chloride (0.9% Saline Lock 10 Ml Syringe) 10 - 40 ml IV UD PRN PRN Reason: SALINE FLUSH Last Admin: 05/31/20 21:32 Dose: 10 ml Documented by: Medical Necessity - Tobacco Use Smoking Status: Former smoker Route of nutrition/ use of supplements: [] Nutritional Intake: [] IV Site: [] Snider Catheter: [] - Assessment/Plan Antibiotics: [] Assessment/Plan: [] Active and Suspected Problems (Last Reviewed 05/31/20 @ 00:[address] Dougie Avila MD) COVID-19 (Acute) Elevated d-dimer (Acute) covid with hypoxia - sx started 05/18/[address]. asymptomatic. CT showed no PE, but was suboptimal and large effusion present. Fever to 101.6 here, wbc normal, d-dimer 3.6. On RA this afternoon. On dex, remdesivir, therapeutic lovenox. Uag neg. Day 3 of ceftriaxone. Feeling much better, o2 much improved. Plan on discharge with quarantine until 06/07, complete 10 days total of dex. Plan on stopping ceftriaxone when he leaves. Will follow
[2020-06-01] MEDS: hydroCHLOROthiazide 12.5mg 12.5 MG PO (15:30)
--- NOTE | 2020-06-01 15:46 | NURSING ---
Pt sitting in chair. Walked around room a few times. This nurse gave hydralzine po at 1530. Will recheck BP at 1630.
[2020-06-01] MEDS: Ceftriaxone 1 GM/50 ML BAG IV (21:23)
[2020-06-01] MEDS: Atorvastatin Calcium 10 MG Tablet PO (21:27)
[2020-06-02] VITALS (14 sets, daily range): BP systolic 138–161; BP diastolic 82–94; PULSE 73–104; RESP 18–22; TEMP 36.2–36.8; O2SAT 85–94
--- NOTE | 2020-06-02 07:23 | PCS.PANDOC ---
PANDEMIC DOCUMENTATION INITIATED: Date: 04/23/2020 Time:
[2020-06-02 07:44] LABS: Hematocrit 41.2 % (40-54); Hemoglobin 13.4 g/dL (13.0-16.5); Mean Corp Hgb Conc 32.5 g/dL (32-36); Mean Corpuscular Hgb 28.3 pg (27.0-32.0); Mean Corpuscular Volume 87.1 fL (80-94); Mean Platelet Vol. 8.4 fl (6.2-12.0); Platelet Count 559 K/mm3 (150-450); RBC Distribution Width CV 13.2 % (11.6-14.6); RBC Distribution Width SD 42.5 fl (35.1-43.9); Red Blood Count 4.73 M/mm3 (4.6-6.2); White Blood Count 22.1 K/mm3 (4.4-11.0)
--- NOTE | 2020-06-02 08:04 | PN_ITS ---
Patient Problems: Active and Suspected Problems (Last Reviewed 05/31/20 @ 00:[address] Dougie Avila MD) COVID-19 (Acute) Elevated d-dimer (Acute) Reason for Visit: Follow-up for acute hypoxic respiratory failure secondary to COVID-19 pneumonia and presumed PE Objective: Seen and examined. No fever in last 24 hours. Patient still looks mild short of breath especially on exertion and conversational dyspnea. Patient has mild cough at pleuritic chest has much improved. General: Alert, Oriented x3, Cooperative HEENT: Atraumatic, PERRLA, EOMI, Normocephalic Oral: No Gingival or Mucosal Lesions/ Ulcerations Neck: Supple, No JVD, Negative Carotid Bruits Lungs: Air entry diminished in bilateral lung bases. No crepitation or rhonchi. Cardiovascular: Regular rate, Regular Rhythm, Normal S1, Normal S2, No murmurs Abdomen: Bowel Sounds Present, Soft, Non Tender, Non-Distended : No renal angle tenderness. No suprapubic tenderness. Extremities: No edema, Capillary Refill Less than 3 Seconds Skin: No rashes, No breakdown Musculoskeletal: No Tenderness to Palpation of Joints or Extremities Neurological: Cranial nerves II-XII grossly intact, Deep Tendon Reflexes 2+/4 and Symmetrical, Neuro grossly intact Psych/Mental Status: Normal Affect, Appropriate. Vitals/I&O's: Vital Signs Temp Pulse Resp BP Pulse Ox 97.1 F L 89 18 150/94 H 90 06/02/20 04:05 06/02/20 04:05 06/02/20 04:05 06/02/20 04:05 06/02/20 07:01 Oxygen Flow Rate (L/min) 2 Oxygen Delivery Method Nasal Cannula Weight: 224 lb 6.889 oz Body Mass Index (BMI) 30.4 Intake and Output for Last 24 Hours 05/31/20 06/01/20 06/02/20 23:59 23:59 23:59 Intake Total 3132.5 / 3132.5 1420 / 1660 490 / 490 Output Total 200 / 200 Balance 2932.5 / 2932.5 1420 / 1660 490 / 490 Microbiology Past 72 Hours 05/31/20 04:45 Interface Orders Legionella Antigen - Final 05/31/20 04:45 Interface Orders Streptococcus pneumoniae Antigen (M - Final Laboratory Results 06/02/20 06:10: WBC 22.1 H, RBC 4.73, Hgb 13.4, Hct 41.2, MCV 87.1, MCH 28.3, MCHC 32.5, RDW Std Deviation 42.5, RDW Coeff of Usman 13.2, Plt Count 559 H, MPV 8.4 06/02/20 06:10: Sodium Pending, Potassium Pending, Chloride Pending, Carbon Dioxide Pending, Anion Gap Pending, BUN Pending, Creatinine Pending, Est GFR (MDRD) Af Amer Pending, Est GFR (MDRD) Non-Af Pending, BUN/Creatinine Ratio Pending, Glucose Pending, Calcium Pending, Magnesium Pending, Total Bilirubin Pending, AST Pending, ALT Pending, Alkaline Phosphatase Pending, Total Protein Pending, Albumin Pending Current Medications Acetaminophen (Acetaminophen 325 Mg Tablet) 650 mg PO Q6H PRN PRN PRN Reason: pain 1-10/fever Last Admin: 05/31/20 03:33 Dose: 650 mg Documented by: Allopurinol (Allopurinol 300 Mg Tablet) 300 mg PO DAILY [facility] Last Admin: 06/01/20 11:39 Dose: 300 mg Documented by: Atorvastatin Calcium (Atorvastatin Calcium 10 Mg Tablet) 10 mg PO QHS [facility] Last Admin: 06/01/20 21:27 Dose: 10 mg Documented by: Dexamethasone (Dexamethasone 4 Mg Tablet) 6 mg PO DAILY [facility] Stop: 06/08/20 10:01 Last Admin: 06/01/20 11:39 Dose: 6 mg Documented by: Enoxaparin Sodium (Enoxaparin 100 Mg/Ml Syringe) 100 mg SC Q12 [facility] Last Admin: 06/01/20 21:27 Dose: 100 mg Documented by: Guaifenesin (Guaifenesin 1,200 Mg Tablet) 1,200 mg PO BID [facility] Last Admin: 06/01/20 21:27 Dose: 1,200 mg Documented by: Hydralazine HCl (Hydralazine 20 Mg/Ml Vial) 10 mg IV Q4H PRN PRN PRN Reason: SBP more than 180 mmHg Hydrochlorothiazide (Hydrochlorothiazide 12.5mg) 25 mg PO DAILY [facility] Ceftriaxone Sodium (Rocephin) 1 gm in 50 mls @ 100 mls/hr IV Q24H [facility] Last Infusion: 06/01/20 23:00 Dose: Infused Documented by: Sodium Chloride () 250 mls @ 15 mls/hr IV .[id number] PRN PRN Reason: Saline Flush Sodium Chloride () 250 mls @ 15 mls/hr IV .[id number] PRN PRN Reason: Additional IVPB Infusion Remdesivir 100 mg/ Sodium (Chloride) 250 mls @ 125 mls/hr IV Q24H [facility] Stop: 06/03/20 23:59 Last Infusion: 06/02/20 02:27 Dose: Infused Documented by: Morphine Sulfate (Morphine 2 Mg/Ml Syringe) 2 mg IV Q3H PRN PRN PRN Reason: pain 6-10 Last Admin: 05/31/20 12:15 Dose: 2 mg Documented by: Multivitamins/Minerals (Multivitamins,Ther W-Minerals Tablet) 1 tablet PO DAILY [facility] Last Admin: 06/01/20 11:40 Dose: 1 tablet Documented by: Pantoprazole Sodium (Pantoprazole Sodium 20 Mg Tablet) 20 mg PO DAILY [facility] Last Admin: 06/01/20 11:39 Dose: 20 mg Documented by: Sodium Chloride (0.9% Saline Lock 10 Ml Syringe) 10 - 40 ml IV UD PRN PRN Reason: SALINE FLUSH Last Admin: 05/31/20 21:32 Dose: 10 ml Documented by: STROKE Vital Signs/Narrative: Vital Signs Temp Pulse Resp BP Pulse Ox 06/02/20 07:01 90 06/02/20 04:05 97.1 F L 89 18 150/94 H 93 Medical Necessity - Tobacco Use Smoking Status: Former smoker Assessment/Plan All Active Problems (Last Reviewed 05/31/20 @ 00:[address] Dougie Avila MD) COVID-19 (Acute) Elevated d-dimer (Acute) This 70-year-old male admitted on May 30 with shortness of breath, pleuritic chest pain cough, low-grade fever. He was started on azithromycin 4 days ago for cough. 1 Acute hypoxemic respiratory failure secondary to COVID-19 pneumonia, associated with pleural effusion, lobar consolidation and underlying atelectasis: patient is admitted on Covid cohort floor. On IV remdesivir and Decadron. Ceftriaxone 1 g daily. On Mucinex, incentive spirometry and chest physiotherapy. CT chest discussed with the parking lot attendant. No need for thoracocentesis. Patient has mild leukocytosis. Liver chemistry shows elevated alkaline phosphatase otherwise normal transaminases and total bilirubin. BUN/creatinine slightly elevated. ID consult. 06/01: Patient cough, shortness of breath and chest pain is better. Continue Decadron, remdesivir and Lovenox. Discussed with ID. 06/02: On fourth day of IV remdesivir. Pulse ox 90% at rest on room air, 85% on ambulation at rest and 92% on 5 L of oxygen on ambulation. Continue Mucinex, PEP and chest physiotherapy. ID recommended quarantine until 06/07. Discontinue ceftriaxone after discharge. Leukocytosis mainly secondary to steroid effect. 2. Pneumonia possible viral respiratory superinfection with bacterial superinfection: CT chest finding is consistent with right lower lobar consolidation but not groundglass opacity or alveolar infiltrate. Urinary antigens are negative. Sputum culture if patient produces sputum. 3. Elevated D-dimer with hypercoagulable state and high risk of thromboembolism: CTA could not rule out distal PE therefore started on Lovenox therapeutic dose. Lower extremity venous Doppler is ordered. As CT scan chest does not completely rule out PE and D-dimer is high therefore on therapeutic dose of Lovenox. 06/01: Patient clinical features and circumstances are suggestive of distal right PE. Patient will need at least 3 months of anticoagulant and follow-up in pulmonary clinic. May need VQ scan as an outpatient. 4. Hypertension: Blood pressure is elevated 158/99. Patient was on antihypertensive medication but was taken off by PCP. Started on HCTZ 12.5 mg scheduled daily and hydralazine 10 mg IV every 4 hourly as needed for systolic blood pressure more than 180 MNG. Obstructive sleep apnea: CPAP 5. Gout 6. Dyslipidemia Microbiology Past 72 Hours 05/31/20 04:45 Interface Orders Legionella Antigen - Final 05/31/20 04:45 Interface Orders Streptococcus pneumoniae Antigen (M - Final Laboratory Results 06/02/20 06:10: WBC 22.1 H, RBC 4.73, Hgb 13.4, Hct 41.2, MCV 87.1, MCH 28.3, MCHC 32.5, RDW Std Deviation 42.5, RDW Coeff of Usman 13.2, Plt Count 559 H, MPV 8.4 06/02/20 06:10: Sodium 138, Potassium 4.5, Chloride 105, Carbon Dioxide 27.0, Anion Gap 6, BUN 27 H, Creatinine 0.92, Estim Creat Clear Calc 82.00, Est GFR (MDRD) Af Amer 104, Est GFR (MDRD) Non-Af 86, BUN/Creatinine Ratio 29.3 H, Glucose 129 H, Calcium 9.3, Magnesium 2.4, Total Bilirubin 0.40, AST 19, ALT 34, Alkaline Phosphatase 144 H, Total Protein 7.0, Albumin 2.3 L, Globulin 4.7 H, Albumin/Globulin Ratio 0.5 L Clinical Impression(s) from Imaging Studies Chest X-Ray 05/30/20 19:16 IMPRESSION: Diminished inspiratory effort and bibasilar atelectasis Electronically Signed: Jason Johnson MD at 19:37 EST , Service support , Chest CTA 05/30/20 21:33 IMPRESSION: Left lower lobe infiltrate and a large right pleural effusion with consolidation of the right lower lobe which may be consistent with inflammatory changes.. No definitive evidence for pulmonary embolus given limited visualization of the distal subsegmental vessels. If strong clinical suspicion for pulmonary embolus DOPPLER study of deep venous system of the lower extremities recommended Electronically Signed: Jason Johnson MD at 22:36 EST , Service support , Inpatient E&M: [id number] [facility] Hosp L2
[2020-06-02 08:05] LABS: ALB/GLOB Ratio 0.5 RATIO (0.9-2.4); AST(SGOT) 19 U/L (15-37); Alanine Aminotransfer ALT/SGPT 34 U/L (16-61); Albumin, Serum 2.3 g/dL (3.2-5.0); Alkaline Phosphatase 144 U/L (45-117); Anion Gap 6 (5-15); BUN 27 mg/dL (7-18); BUN/Creat Ratio 29.3 RATIO (10-20); Calcium,Total 9.3 mg/dL (8.5-10.1); Chloride 105 mmol/L (98-107); Creatinine, Serum 0.92 mg/dL (0.70-1.30); EST Glomerular Filtration Rate 86 mL/min (>60); Est Glom Filt Rate - Afr Amer 104 mL/min (>60); Globulin 4.7 g/dL (2.2-4.2); Glucose 129 mg/dL (74-106); Magnesium 2.4 mg/dL (1.6-2.6); Potassium 4.5 mmol/L (3.5-5.1); Sodium Level 138 mmol/L (136-145)
--- NOTE | 2020-06-02 09:23 | NURSING ---
pt states he wears home cpap at bedtime that i am able to put oxygen on it if i need to. inquiring about use when goes home
[2020-06-02] MEDS: Multivitamins,Ther W-Minerals Tablet 1 TABLET PO (09:24)
[2020-06-02] MEDS: hydroCHLOROthiazide 25 MG Tablet PO (09:24)
[2020-06-02] MEDS: Pantoprazole Sodium 20 MG Tablet PO (09:24)
[2020-06-02] MEDS: dexAMETHasone 4 MG Tablet 6 MG PO (09:24)
[2020-06-02] MEDS: guaiFENesin 1,200 MG Tablet 1200 MG PO ×2 (09:24→22:11)
[2020-06-02] MEDS: Allopurinol 300 MG Tablet PO (09:24)
[2020-06-02] MEDS: Enoxaparin 100 MG/ML Syringe SC ×2 (09:25→22:11)
--- NOTE | 2020-06-02 10:03 | CM.UR ---
Addendum entered by Lisa Cardozo 06/02/20 10:59: RN documented room air pulse ox. Completed all information for oxygen. Instructed Rhonda Dowling RN to have Dr. Rizzo sign it, then fax to [facility] and call them to set up oxygen. She verb understanding and agreement. Jonathan Cardozo RN, [facility]. Original Note: RN completed the home 02 document with ambulating and ambulating with o2 only. Asked about pulse ox at rest. Patient has been in low 90s on 2 liters today however no room air at rest noted. Patient was on room air yesterday and staying in mid 90s. He was put back on o2 around 9:30 but not documentation as to why or what pulse ox was before putting it back on. Alerted Charge, Rhonda Dowling RN that I need clarification to determine if o2 is needed continuously or just with activity and sleep. Verb understanding. States she will discuss with RN. Elena Cardozo RN.
[2020-06-02] MEDS: Metoprolol Tartrate 25 MG Tablet 12.5 MG PO ×2 (14:16→22:11)
[2020-06-02] MEDS: Ceftriaxone 1 GM/50 ML BAG IV (21:45)
[2020-06-02] MEDS: 0.9% Saline Lock 10 ML Syringe IV (21:45)
[2020-06-02] MEDS: Atorvastatin Calcium 10 MG Tablet PO (22:11)
[2020-06-03] VITALS (7 sets, daily range): BP systolic 155–158; BP diastolic 81–96; PULSE 63–101; RESP 15–20; TEMP 36.4–36.6; O2SAT 89–94
[2020-06-03] MEDS: 0.9% Saline Lock 10 ML Syringe IV ×2 (04:44→10:15)
--- NOTE | 2020-06-03 06:15 | PN_ITS ---
Patient Problems: Active and Suspected Problems (Last Reviewed 05/31/20 @ 00:[address] Dougie Avila MD) COVID-19 (Acute) Elevated d-dimer (Acute) Subjective: The patient was seen and examined at the bedside this morning. Events from the last 24 hours have been reviewed. The patient is currently afebrile, hemodynamically stable and maintaining appropriate oxygen saturations on 2 L/min via nasal cannula. The patient was able to ambulate this morning and maintain appropriate oxygen saturations on 2 L/min with exertion. The patient remains on therapeutic Lovenox, Decadron and remdesivir. The patient denies any significant shortness of breath, but does continue to have a cough. Objective: The patient's most recent lab work, culture data and imaging studies have all been personally reviewed. Coronavirus PCR was positive on May 30. Lower extremity Doppler study on May 31 was negative for DVT. - Physical Exam Vitals/I&O's: Vital Signs Temp Pulse Resp BP Pulse Ox 97.6 F L 84 15 155/81 H 89 06/03/20 04:44 06/03/20 04:44 06/03/20 04:44 06/03/20 04:44 06/03/20 04:45 Oxygen Flow Rate (L/min) [ 2 AMBULATION with Oxygen] Oxygen Flow Rate (L/min) 2 Oxygen Delivery Method Nasal Cannula Weight: 224 lb 6.889 oz Body Mass Index (BMI) 30.4 Intake and Output for Last 24 Hours 06/01/20 06/02/20 06/03/20 23:59 23:59 23:59 Intake Total 1420 / 1660 940 / 940 250 / 250 Balance 1420 / 1660 940 / 940 250 / 250 General: Alert, Cooperative, No apparent distress, - - Sitting in bedside recliner. HEENT: Atraumatic, PERRLA, Normocephalic Oral: No Gingival or Mucosal Lesions/ Ulcerations Neck: Supple, No Nodes, Trachea Midline Lungs: No rhonchi, No wheeze, No rales, Diminished Cardiovascular: Regular rate, Regular Rhythm Abdomen: Bowel Sounds Present, Soft, Non Tender, Obese Extremities: No clubbing, No cyanosis, No edema Skin: No breakdown Musculoskeletal: No Tenderness to Palpation of Joints or Extremities Lymphatic: No Cervical, Supraclavicular, or Inguinal Adenopathy Neurological: Cranial nerves II-XII grossly intact, Neuro grossly intact Psych/Mental Status: Alert and oriented to time, place, person, mood and affect Labs (Last 48 Hours) 06/01/20 06/01/20 06/02/20 05:50 05:50 06:10 WBC 16.6 H 22.1 H RBC 4.94 4.73 Hgb 14.0 13.4 Hct 43.1 41.2 MCV 87.2 87.1 MCH 28.3 28.3 MCHC 32.5 32.5 RDW Std Deviation 41.9 42.5 RDW Coeff of Usman 13.1 13.2 Plt Count 492 H 559 H MPV 8.7 8.4 Sodium 136 Potassium 5.0 Chloride 102 Carbon Dioxide 25.0 Anion Gap 9 BUN 24 H Creatinine 0.98 Estim Creat Clear Calc 76.98 Est GFR (MDRD) Af Amer 97 Est GFR (MDRD) Non-Af 81 BUN/Creatinine Ratio 24.5 H Glucose 124 H Calcium 9.0 Magnesium Total Bilirubin 0.40 AST 19 ALT 33 Alkaline Phosphatase 155 H Total Protein 6.2 L Albumin 2.5 L Globulin 3.7 Albumin/Globulin Ratio 0.7 L 06/02/20 06:10 WBC RBC Hgb Hct MCV MCH MCHC RDW Std Deviation RDW Coeff of Usman Plt Count MPV Sodium 138 Potassium 4.5 Chloride 105 Carbon Dioxide 27.0 Anion Gap 6 BUN 27 H Creatinine 0.92 Estim Creat Clear Calc 82.00 Est GFR (MDRD) Af Amer 104 Est GFR (MDRD) Non-Af 86 BUN/Creatinine Ratio 29.3 H Glucose 129 H Calcium 9.3 Magnesium 2.4 Total Bilirubin 0.40 AST 19 ALT 34 Alkaline Phosphatase 144 H Total Protein 7.0 Albumin 2.3 L Globulin 4.7 H Albumin/Globulin Ratio 0.5 L Clinical Impression(s) from Imaging Studies Chest X-Ray 05/30/20 19:16 IMPRESSION: Diminished inspiratory effort and bibasilar atelectasis Electronically Signed: Jason Johnson MD at 19:37 EST , Service support , Chest CTA 05/30/20 21:33 IMPRESSION: Left lower lobe infiltrate and a large right pleural effusion with consolidation of the right lower lobe which may be consistent with inflammatory changes.. No definitive evidence for pulmonary embolus given limited visualization of the distal subsegmental vessels. If strong clinical suspicion for pulmonary embolus DOPPLER study of deep venous system of the lower extremities recommended Electronically Signed: Jason Johnson MD at 22:36 EST , Service support , Current Medications Acetaminophen (Acetaminophen 325 Mg Tablet) 650 mg PO Q6H PRN PRN PRN Reason: pain 1-10/fever Last Admin: 05/31/20 03:33 Dose: 650 mg Documented by: Allopurinol (Allopurinol 300 Mg Tablet) 300 mg PO DAILY [facility] Last Admin: 06/02/20 09:24 Dose: 300 mg Documented by: Atorvastatin Calcium (Atorvastatin Calcium 10 Mg Tablet) 10 mg PO QHS [facility] Last Admin: 06/02/20 22:11 Dose: 10 mg Documented by: Dexamethasone (Dexamethasone 4 Mg Tablet) 6 mg PO DAILY [facility] Stop: 06/08/20 10:01 Last Admin: 06/02/20 09:24 Dose: 6 mg Documented by: Enoxaparin Sodium (Enoxaparin 100 Mg/Ml Syringe) 100 mg SC Q12 [facility] Last Admin: 06/02/20 22:11 Dose: 100 mg Documented by: Guaifenesin (Guaifenesin 1,200 Mg Tablet) 1,200 mg PO BID [facility] Last Admin: 06/02/20 22:11 Dose: 1,200 mg Documented by: Hydralazine HCl (Hydralazine 20 Mg/Ml Vial) 10 mg IV Q4H PRN PRN PRN Reason: SBP more than 180 mmHg Hydrochlorothiazide (Hydrochlorothiazide 25 Mg Tablet) 25 mg PO DAILY [facility] Last Admin: 06/02/20 09:24 Dose: 25 mg Documented by: Ceftriaxone Sodium (Rocephin) 1 gm in 50 mls @ 100 mls/hr IV Q24H [facility] Last Infusion: 06/02/20 22:15 Dose: Infused Documented by: Sodium Chloride () 250 mls @ 15 mls/hr IV .[id number] PRN PRN Reason: Saline Flush Sodium Chloride () 250 mls @ 15 mls/hr IV .[id number] PRN PRN Reason: Additional IVPB Infusion Remdesivir 100 mg/ Sodium (Chloride) 250 mls @ 125 mls/hr IV Q24H [facility] Stop: 06/03/20 23:59 Last Infusion: 06/03/20 00:18 Dose: Infused Documented by: Metoprolol Tartrate (Metoprolol Tartrate 25 Mg Tablet) 12.5 mg PO BID [facility] Last Admin: 06/02/20 22:11 Dose: 12.5 mg Documented by: Morphine Sulfate (Morphine 2 Mg/Ml Syringe) 2 mg IV Q3H PRN PRN PRN Reason: pain 6-10 Last Admin: 05/31/20 12:15 Dose: 2 mg Documented by: Multivitamins/Minerals (Multivitamins,Ther W-Minerals Tablet) 1 tablet PO DAILY [facility] Last Admin: 06/02/20 09:24 Dose: 1 tablet Documented by: Pantoprazole Sodium (Pantoprazole Sodium 20 Mg Tablet) 20 mg PO DAILY [facility] Last Admin: 06/02/20 09:24 Dose: 20 mg Documented by: Sodium Chloride (0.9% Saline Lock 10 Ml Syringe) 10 - 40 ml IV UD PRN PRN Reason: SALINE FLUSH Last Admin: 06/03/20 04:44 Dose: 10 ml Documented by: Medical Necessity - Tobacco Use Smoking Status: Former smoker Assessment/Plan All Active Problems (Last Reviewed 05/31/20 @ 00:[address] Dougie Avila MD) COVID-19 (Acute) Elevated d-dimer (Acute) RECOMMENDATIONS: 1. Continue antibiotics with plans to complete a 7-day treatment course. 2. Continue Decadron with plans to complete a total of 10 days of treatment. 3. Continue remdesivir. Monitor liver and renal function accordingly. 4. Wean supplemental oxygen to maintain saturations at or above 90%. 5. Continue therapeutic Lovenox. 6. Continue nocturnal CPAP therapy per home regimen. 7. At discharge, I would recommend that the patient be sent home on Eliquis for 2 to 3 weeks post discharge. IMPRESSIONS: 1. Acute hypoxemic respiratory failure secondary to COVID-19 pneumonia The patient presented to the hospital with pleuritic type chest pain and a new supplemental oxygen requirement. Coronavirus PCR was positive. Accordingly, the patient was started on Decadron and remdesivir. Continue to monitor liver and renal function accordingly. Wean supplemental oxygen to maintain saturations at or above 90%. Given the suboptimal nature of the patient's CTA chest and elevated D-dimer level, recommend continuing systemic anticoagulation, with plans to continue for 2 to 3 weeks post discharge. Anticipate home-going supplemental oxygen requirement. 2. Elevated D-dimer Given that the patient presented to the hospital with tachycardia, tachypnea and hypoxemia, along with elevated D-dimer level, I would recommend that therapeutic Lovenox be continued. CTA chest was a bit suboptimal for the evaluation of PE. 3. History of obstructive sleep apnea Orders for nocturnal CPAP therapy will be placed, per home regimen. 4. Obesity/hyperlipidemia/GERD Complicates care, management, recovery and prognosis. Continue home medications as indicated. CODE status: Discussed CODE status at length including difference between FULL code, DNR-CCA and DNR-CC status. Following discussions about the differences in these status, patient requested FULL CODE STATUS. This note was generated with [employer] dictation software. It may contain incorrect words, spelling, and punctuation that were not noted in checking the note before signing. Inpatient E&M: [id number] [facility] Hosp L2
--- NOTE | 2020-06-03 08:59 | PCM.DC ---
- Discharge Diagnoses Current Active Problems: Current Active and Chronic Problems (Last Reviewed 05/31/20 @ 00:[address] Dougie Avila MD) Obstructive sleep apnea (Chronic) High cholesterol (Chronic) COVID-19 (Acute) Elevated d-dimer (Acute) You will use the following diet at home:: Cardiac Discharge Activity: May Not Drive - Self quarantine until June 07, 2019 Call your doctor if you observe: Fever of 101 or Higher, Coldness, Increased Pain, Numbness or Tingling, Change in Color, Inability to urinate, Inability to have a bowel movement, Shortness of breath, Dizziness, Fainting spells, Swelling in the ankles, Chest pain, Prolonged hiccoughing, Increased palpitations (irregular heartbeat), Calf discomfort, Uncontrolled pain Additional Instructions: Eliquis 10 mg twice daily until 06/06/20 then 5 mg twice daily to continue at least for 3 months Follow with PCP for management of hypertension. Started on HCTZ. Need BMP in 7 days on 06/11/2020. Allergies/Adverse Reactions: Allergies No Known Allergies Allergy (Verified 05/30/20 18:58) Medications to take at Discharge allopurinol 300 mg tablet 1 tab PO DAILY [facility] gout 12/12/19 atorvastatin 10 mg tablet 1 tab PO DAILY 12/12/19 boqamuuz-mxe-sypkj acid 300 mcg-lycopene 600 mcg-lutein 300 mcg tablet 1 tab PO DAILY 12/12/19 omeprazole 20 mg capsule,delayed release 1 tab PO DAILY 12/12/19 sildenafil 100 mg tablet 100 ea PO PRN PRN 12/12/19 Apixaban [Eliquis] 10 mg PO BID #60 tab 06/01/20 Dexamethasone [Decadron] 6 mg PO DAILY #5 tab 06/03/20 Guaifenesin [Mucinex] 1,200 mg PO BID #14 tab.er.12h 06/03/20 Hydrochlorothiazide [Hctz] 25 mg PO DAILY #30 tab 06/03/20 The following prescriptions were given: Dexamethasone [Decadron] 6 mg PO DAILY #5 tab Transmission Status: Pending to [facility] Apixaban [Eliquis] 10 mg PO BID #60 tab Transmission Status: Received by [facility] Hydrochlorothiazide [Hctz] 25 mg PO DAILY #30 tab Transmission Status: Pending to [facility] Guaifenesin [Mucinex] 1,200 mg PO BID #14 tab.er.12h Transmission Status: Pending to [facility] [address] Primary Care Physician: Seng Willoughby MD [Primary Care Provider] - Please follow up with your Primary Care Physician in: in 1-2 weeks Test Results: Test results from this visit will be discussed in further detail at your follow-up appointment, if applicable. Please Follow Up With: Ki Pickard, DO When: In 2 weeks for right distal PE
--- NOTE | 2020-06-03 09:24 | PCM.DC.SUM ---
Discharge Date and Diagnosis - Problem List Patient Problems: Active and Suspected Problems (Last Reviewed 05/31/20 @ 00:[address] Dougie Avila MD) COVID-19 (Acute) Elevated d-dimer (Acute) Date of Admission: 05/30/20 Date of Discharge: 06/03/20 - Primary Discharge Diagnosis Acute Problems: Active Problems (Last Reviewed 05/31/20 @ 00:[address] Dougie Avila MD) COVID-19 (Acute) Elevated d-dimer (Acute) Acute hypoxic respiratory failure secondary to COVID-19 pneumonia. - Secondary Discharge Diagnosis Chronic Problems: Chronic Problems (Last Reviewed 05/31/20 @ 00:[address] Dougie Avila MD) Obstructive sleep apnea (Chronic) High cholesterol (Chronic) Hospital Course and Treatment Operations: appendectomy Summary of Care Provided: This 70-year-old male admitted on May 30 with shortness of breath, pleuritic chest pain cough, low-grade fever with symptoms from 05/18/2020. He was started on azithromycin 4 days ago for cough. 1 Acute hypoxemic respiratory failure secondary to COVID-19 pneumonia, associated with pleural effusion, lobar consolidation and underlying atelectasis: patient is admitted on Covid cohort floor. On IV remdesivir and Decadron. Ceftriaxone 1 g daily. On Mucinex, incentive spirometry and chest physiotherapy. CT chest discussed with the senior government program analyst. No need for thoracocentesis. Patient has mild leukocytosis. Liver chemistry shows elevated alkaline phosphatase otherwise normal transaminases and total bilirubin. BUN/creatinine slightly elevated. Patient completed 5 days of remdesivir and dexamethasone. Patient shortness of breath and cough is much improved. Right-sided pleuritic chest pain almost resolved. Mild hypoxia, pulse ox 92% on room air, 89% on ambulation on room air, 93% on ambulation on room air. Patient is being discharged on Decadron, therapeutic dose of Lovenox and Mucinex. 2. Pneumonia possible viral respiratory superinfection with bacterial superinfection: CT chest finding is consistent with right lower lobar consolidation but not groundglass opacity or alveolar infiltrate. Urinary antigens are negative. Patient completed antibiotic about 4 days of Zithromax before admission and had 5 days of ceftriaxone here. As per ID recommendation does not need further antibiotic. 3. Elevated D-dimer with hypercoagulable state and high risk of thromboembolism: CTA could not rule out distal PE therefore started on Lovenox therapeutic dose. Lower extremity venous Doppler is ordered. As CT scan chest does not completely rule out PE and D-dimer is high therefore on therapeutic dose of Lovenox. Patient discharged on therapeutic dose of Eliquis. Advised to follow-up in pulmonary clinic and may need VQ scan. Clinically high suspicion of PE most probably subsegmental distal PE. May need 3 months of anticoagulant but will leave the decision on senior government program analyst. 4. Hypertension: Blood pressure is elevated 158/99. Patient was on antihypertensive medication but was taken off by PCP. HCTZ 25 mg daily. And hydralazine 10 mg IV every 4 hourly as needed for systolic blood pressure more than 180 millimeters. Prescription given for HCTZ 25 mg daily Obstructive sleep apnea: CPAP 5. Gout 6. Dyslipidemia Pt received IV antibiotics ceftriaxone and earlier had Zithromax. ID advised to discontinue antibiotic at the time of discharge. Discharge medication reconciliation done. Discharge follow-up instructions completed. Discharge process discussed with the patient and all questions were answered to patient's satisfaction. Patient advised to take Eliquis 10 mg twice a day until 06/06/2020 and then 5 mg twice daily. Advised to follow with PCP and will need BMP in 1 week as patient started on HCTZ in the hospital for hypertension. Follow-up with Dr. Pickard in pulmonary clinic for presumed right distal PE. Patient is ambulatory in home and in the community and requires home oxygen with portability. Total time spent, exact 35 minutes on discharge meds reconciliation, examination, coordination of care with nurses and ancillary staff, review of imaging and blood test and discussion with the patient on follow-up instructions Clinical Impression(s) from Imaging Studies Chest X-Ray 05/30/20 19:16 IMPRESSION: Diminished inspiratory effort and bibasilar atelectasis Chest CTA 05/30/20 21:33 IMPRESSION: Left lower lobe infiltrate and a large right pleural effusion with consolidation of the right lower lobe which may be consistent with inflammatory changes.. No definitive evidence for pulmonary embolus given limited visualization of the distal subsegmental vessels. If strong clinical suspicion for pulmonary embolus DOPPLER study of deep venous system of the lower extremities recommended Patient Problems: Active and Suspected Problems (Last Reviewed 05/31/20 @ 00:[address] Dougie Avila MD) COVID-19 (Acute) Elevated d-dimer (Acute) Objective: Seen and examined Afebrile. Heart rate and blood pressure in acceptable limit. On 2 L of oxygen on ambulation. Shortness of breath is much better. Mild cough. Physical exam General: Alert, Oriented x3, Cooperative HEENT: Atraumatic, PERRLA, EOMI, Normocephalic Oral: No Gingival or Mucosal Lesions/ Ulcerations Neck: Supple, No JVD, Negative Carotid Bruits Lungs: Air entry diminished in bilateral lung bases. No crepitation/rhonchi Cardiovascular: Regular rate, Regular Rhythm, Normal S1, Normal S2, No murmurs Abdomen: Bowel Sounds Present, Soft, Non Tender, Non-Distended : No renal angle tenderness. No suprapubic tenderness. Extremities: No edema, Capillary Refill Less than 3 Seconds Skin: No rashes, No breakdown Musculoskeletal: No Tenderness to Palpation of Joints or Extremities Neurological: Cranial nerves II-XII grossly intact, Deep Tendon Reflexes 2+/4 and Symmetrical, Neuro grossly intact Psych/Mental Status: Normal Affect, Appropriate. - Physical Exam Vitals/I&O's: Vital Signs Temp Pulse Resp BP Pulse Ox 97.6 F L 84 15 155/81 H 89 06/03/20 04:44 06/03/20 04:44 06/03/20 04:44 06/03/20 04:44 06/03/20 04:45 Oxygen Flow Rate (L/min) [ 2 AMBULATION with Oxygen] Oxygen Flow Rate (L/min) 2 Oxygen Delivery Method Nasal Cannula Weight: 224 lb 6.889 oz Body Mass Index (BMI) 30.4 Intake and Output for Last 24 Hours 06/01/20 06/02/20 06/03/20 23:59 23:59 23:59 Intake Total 1420 / 1660 940 / 940 550 / 550 Balance 1420 / 1660 940 / 940 550 / 550 Microbiology Past 72 Hours 05/31/20 04:45 Interface Orders Legionella Antigen - Final 05/31/20 04:45 Interface Orders Streptococcus pneumoniae Antigen (M - Final Laboratory Results 06/02/20 06:10: WBC 22.1 H, RBC 4.73, Hgb 13.4, Hct 41.2, MCV 87.1, MCH 28.3, MCHC 32.5, RDW Std Deviation 42.5, RDW Coeff of Usman 13.2, Plt Count 559 H, MPV 8.4 06/02/20 06:10: Sodium 138, Potassium 4.5, Chloride 105, Carbon Dioxide 27.0, Anion Gap 6, BUN 27 H, Creatinine 0.92, Estim Creat Clear Calc 82.00, Est GFR (MDRD) Af Amer 104, Est GFR (MDRD) Non-Af 86, BUN/Creatinine Ratio 29.3 H, Glucose 129 H, Calcium 9.3, Magnesium 2.4, Total Bilirubin 0.40, AST 19, ALT 34, Alkaline Phosphatase 144 H, Total Protein 7.0, Albumin 2.3 L, Globulin 4.7 H, Albumin/Globulin Ratio 0.5 L Current Medications Acetaminophen (Acetaminophen 325 Mg Tablet) 650 mg PO Q6H PRN PRN PRN Reason: pain 1-10/fever Last Admin: 05/31/20 03:33 Dose: 650 mg Documented by: Allopurinol (Allopurinol 300 Mg Tablet) 300 mg PO DAILY [facility] Last Admin: 06/02/20 09:24 Dose: 300 mg Documented by: Atorvastatin Calcium (Atorvastatin Calcium 10 Mg Tablet) 10 mg PO QHS [facility] Last Admin: 06/02/20 22:11 Dose: 10 mg Documented by: Dexamethasone (Dexamethasone 4 Mg Tablet) 6 mg PO DAILY [facility] Stop: 06/08/20 10:01 Last Admin: 06/02/20 09:24 Dose: 6 mg Documented by: Enoxaparin Sodium (Enoxaparin 100 Mg/Ml Syringe) 100 mg SC Q12 [facility] Last Admin: 06/02/20 22:11 Dose: 100 mg Documented by: Guaifenesin (Guaifenesin 1,200 Mg Tablet) 1,200 mg PO BID [facility] Last Admin: 06/02/20 22:11 Dose: 1,200 mg Documented by: Hydralazine HCl (Hydralazine 20 Mg/Ml Vial) 10 mg IV Q4H PRN PRN PRN Reason: SBP more than 180 mmHg Hydrochlorothiazide (Hydrochlorothiazide 25 Mg Tablet) 25 mg PO DAILY [facility] Last Admin: 06/02/20 09:24 Dose: 25 mg Documented by: Ceftriaxone Sodium (Rocephin) 1 gm in 50 mls @ 100 mls/hr IV Q24H [facility] Last Infusion: 06/02/20 22:15 Dose: Infused Documented by: Sodium Chloride () 250 mls @ 15 mls/hr IV .[id number] PRN PRN Reason: Saline Flush Sodium Chloride () 250 mls @ 15 mls/hr IV .[id number] PRN PRN Reason: Additional IVPB Infusion Remdesivir 100 mg/ Sodium (Chloride) 250 mls @ 125 mls/hr IV Q24H [facility] Stop: 06/03/20 23:59 Last Infusion: 06/03/20 00:18 Dose: Infused Documented by: Metoprolol Tartrate (Metoprolol Tartrate 25 Mg Tablet) 12.5 mg PO BID [facility] Last Admin: 06/02/20 22:11 Dose: 12.5 mg Documented by: Morphine Sulfate (Morphine 2 Mg/Ml Syringe) 2 mg IV Q3H PRN PRN PRN Reason: pain 6-10 Last Admin: 05/31/20 12:15 Dose: 2 mg Documented by: Multivitamins/Minerals (Multivitamins,Ther W-Minerals Tablet) 1 tablet PO DAILY [facility] Last Admin: 06/02/20 09:24 Dose: 1 tablet Documented by: Pantoprazole Sodium (Pantoprazole Sodium 20 Mg Tablet) 20 mg PO DAILY [facility] Last Admin: 06/02/20 09:24 Dose: 20 mg Documented by: Sodium Chloride (0.9% Saline Lock 10 Ml Syringe) 10 - 40 ml IV UD PRN PRN Reason: SALINE FLUSH Last Admin: 06/03/20 04:44 Dose: 10 ml Documented by: Discharge Activity: May Not Drive - Self quarantine until June 07, 2019 Call your doctor if you observe: Fever of 101 or Higher, Coldness, Increased Pain, Numbness or Tingling, Change in Color, Inability to urinate, Inability to have a bowel movement, Shortness of breath, Dizziness, Fainting spells, Swelling in the ankles, Chest pain, Prolonged hiccoughing, Increased palpitations (irregular heartbeat), Calf discomfort, Uncontrolled pain Home Medications: Medications to take at Discharge allopurinol 300 mg tablet 1 tab PO DAILY [facility] gout 12/12/19 atorvastatin 10 mg tablet 1 tab PO DAILY 12/12/19 nnouzfcw-eko-qrawj acid 300 mcg-lycopene 600 mcg-lutein 300 mcg tablet 1 tab PO DAILY 12/12/19 omeprazole 20 mg capsule,delayed release 1 tab PO DAILY 12/12/19 sildenafil 100 mg tablet 100 ea PO PRN PRN 12/12/19 Apixaban [Eliquis] 10 mg PO BID #60 tab 06/01/20 Dexamethasone [Decadron] 6 mg PO DAILY #5 tab 06/03/20 Guaifenesin [Mucinex] 1,200 mg PO BID #14 tab.er.12h 06/03/20 Hydrochlorothiazide [Hctz] 25 mg PO DAILY #30 tab 06/03/20 Following Prescriptions Were Given to Patient: Dexamethasone [Decadron] 6 mg PO DAILY #5 tab Transmission Status: Received by [facility]ER[address] Apixaban [Eliquis] 10 mg PO BID #60 tab Transmission Status: Received by [facility] Hydrochlorothiazide [Hctz] 25 mg PO DAILY #30 tab Transmission Status: Received by [facility]IR[facility] GERARD[address] Guaifenesin [Mucinex] 1,200 mg PO BID #14 tab.er.12h Transmission Status: Received by [facility]IR[facility]ER[facility] Primary Care Physician: Seng Willoughby MD [Primary Care Provider] - Please follow up with your Primary Care Physician in: in 1-2 weeks Medical Necessity - Tobacco Use Smoking Status: Former smoker Meaningful Use Info Meaningful Use Diagnoses (Choose all that apply): None applicable Inpatient E&M: 02630 [facility]
[2020-06-03] MEDS: Pantoprazole Sodium 20 MG Tablet PO (10:17)
[2020-06-03] MEDS: Multivitamins,Ther W-Minerals Tablet 1 TABLET PO (10:17)
[2020-06-03] MEDS: Allopurinol 300 MG Tablet PO (10:17)
[2020-06-03] MEDS: dexAMETHasone 4 MG Tablet 6 MG PO (10:17)
[2020-06-03] MEDS: guaiFENesin 1,200 MG Tablet 1200 MG PO (10:17)
[2020-06-03] MEDS: hydroCHLOROthiazide 25 MG Tablet PO (10:17)
[2020-06-03] MEDS: Enoxaparin 100 MG/ML Syringe SC (10:18)
[2020-06-03] MEDS: Metoprolol Tartrate 25 MG Tablet 12.5 MG PO (10:21)
--- NOTE | 2020-06-04 12:50 | CASEMGMT ---
MARIA EUGENIA MUNOZ DC PHONE CALL DC DATE: 06/03/2020 DC DISPOSITION: Home with oxygen through [facility] DC DIAGNOSIS: SARS COVID 2 Call to patient at home. Intro role of CM. Patient states he is doing well, but was on phone with [employer] today as he does not have an adapter for CPAP and was told he needs an order. Call to [facility]- spoke with Gavi who will review case and let patient know re: adapter. Requested if any order is needed, to please contact MARIA EUGENIA MUNOZ. Javid CAALN RN ACM
== END 2020-06-03 13:52 | disposition home or self-care (01) | DRG 177 ==
LOC: ED 20:58 → MS2 22:29
PROVIDERS: Internal Medicine Infectious Disease; Admitting Provider Hospitalist; Emergency Provider Emergency Medicine; PCP Family Medicine; Visit Provider Internal Medicine
DX: U07.1 COVID-19 (principal); J12.82 Pneumonia due to coronavirus disease 2019; J96.01 Acute respiratory failure with hypoxia; J90 Pleural effusion, not elsewhere classified; J98.11 Atelectasis; D68.59 Other primary thrombophilia; E66.9 Obesity, unspecified; E78.00 Pure hypercholesterolemia, unspecified; E78.5 Hyperlipidemia, unspecified; G47.33 Obstructive sleep apnea (adult) (pediatric); I10 Essential (primary) hypertension; K21.9 Gastro-esophageal reflux disease without esophagitis; M10.9 Gout, unspecified; K58.9 Irritable bowel syndrome, unspecified; Z68.31 Body mass index [BMI] 31.0-31.9, adult; Z79.899 Other long term (current) drug therapy; Z85.828 Personal history of other malignant neoplasm of skin; Z87.891 Personal history of nicotine dependence
CPT/HCPCS: 36415; 71045; 71275; 80048; 80053; 80076; 83735; 84484; 85025; 85027; 85379; 87449; 87635; 93005; 93970; 99251; 99285; J7030; J7050; Q9967; A4216; G0463; J2405; U0002

== ENCOUNTER 2020-06-04 16:20 | Emergency (ER) | payer MEDICARE, OTHER, SELFPAY ==
[2020-05-30 23:05] VITALS: BMI 30.4
[2020-06-04 16:22] VITALS: BP 169/98; PULSE 119; RESP 27; TEMP 35.8; O2SAT 95; BMI 30.8
[2020-06-04 16:26] VITALS: BP 169/98; PULSE 117; RESP 23; TEMP 35.8; O2SAT 94
--- NOTE | 2020-06-04 16:27 | NURSING ---
FACESHEET FAXED TO [facility]
--- NOTE | 2020-06-04 16:36 | CT_ITS ---
We are attempting to reach an attending provider to discuss findings. An addendum with communication details will be sent when the communication is complete. STUDY: CT HEAD STROKE PROTOCOL W/O CONTRAST INJECTION REASON FOR EXAM: Male, 70 years old. STROKE PROTOCAL RADIATION DOSAGE (If Supplied By Facility): CTDIvol = ( ) mGy, DLP = ( ) mGycm TECHNIQUE: Transaxial CT imaging of the brain was performed without administration of intravenous contrast material. Individualized dose optimization techniques were used for this CT. COMPARISON: No relevant priors. FINDINGS: Normal soft tissue structures. Normal calvarium. Normal size ventricles and extra-axial spaces for the patient''s age. Normal white matter tracts of the cerebral hemispheres. Normal basal ganglia and thalami. Normal brainstem. Normal cerebellum. There is no intracranial hemorrhage. There are no findings of an acute ischemic infarction. Normal visualized paranasal sinuses. ASPECT score: CT/STROKE Brain/Head without Cont IMPRESSION: Normal unenhanced CT scan of the brain. Electronically Signed: Lester Campbell MD at 16:54 EST Tel , Service support ,
--- NOTE | 2020-06-04 16:36 | CT_ITS ---
We are attempting to reach an attending provider to discuss findings. An addendum with communication details will be sent when the communication is complete. STUDY: CTA HEAD AND NECK WITH CONTRAST REASON FOR EXAM: Male, 70 years old. CVA RADIATION DOSAGE (If Supplied By Facility): CTDIvol = ( 21.9 ) mGy, DLP = ( 784.29 ) mGycm TECHNIQUE: CT angiography was performed with a multi-detector CT scanner. Data acquisition was obtained from the skull base through the vertex following intravenous administration of IV 100mL [id number]-370. MIP images were reconstructed from the axial data set. Post-processing of the angiographic images was performed, with multiplanar reformation and 3D reconstruction. Individualized dose optimization techniques were used for this CT. COMPARISON: No relevant priors. FINDINGS: Normal bilateral petrous carotid arteries. Normal right cavernous carotid artery with a normal supraclinoid bifurcation. Normal left cavernous carotid artery with a normal supraclinoid bifurcation. Normal right A1 segments of the anterior cerebral artery. There is hypoplastic development of the left A1 segment of the anterior cerebral arteries with an atretic but intact artery. Normal intact anterior communicating artery (ACOM). Normal bilateral A2 segments of the anterior cerebral arteries. Normal right M1 and M2 segments of the middle cerebral arteries, with a normal M1 bifurcation. Normal left M1 and M2 segments of the middle cerebral arteries, with a normal M1 bifurcation. There is a persistent origin of the right posterior cerebral artery with absence of the posterior communicating artery (PCOM). Normal left posterior communicating artery (PCOM). Normal bilateral vertebral arteries. Normal basilar artery with a normal basilar bifurcation. The visualized bilateral superior cerebellar (SCA) arteries are normal. Normal bilateral P1, P2 and visualized P3 segments of the posterior cerebral arteries. There is no demonstrated aneurysm of the upper [place] of [place]. There is no demonstrated abnormality of the visualized brain. AORTIC ARCH: Normal visualized aortic arch. Normal origins of the brachiocephalic, left common carotid, and left subclavian arteries. RIGHT CAROTID ARTERIES: Normal right common carotid artery (CCA). There is mild atherosclerotic plaque formation with minimal narrowing of the right carotid bulb. Normal origin of the right internal carotid (ICA) artery without a hemodynamically significant stenosis. Normal visualized cervical portion of the right internal carotid artery. Normal origin of the right external carotid artery (ECA). LEFT CAROTID ARTERIES: Normal left common carotid artery (CCA). Normal left common carotid bulb. Normal origin of the left internal carotid (ICA) artery without a hemodynamically significant stenosis. Normal visualized cervical portion of the left internal carotid artery. Normal origin of the left external carotid artery (ECA). VERTEBRAL ARTERIES: Normal bilateral vertebral arteries. CT/STROKE CTA Head AND Neck W/Con IMPRESSION: Normal CTA Head and neck with contrast. Minimal calcified plaque in the proximal right internal carotid artery but no measurable stenosis. Electronically Signed: Lester Campbell MD at 17:08 EST Tel , Service support ,
--- NOTE | 2020-06-04 16:36 | EKG12_ITS ---
Test Reason : Blood Pressure : / mmHG Vent. Rate : 091 BPM Atrial Rate : 091 BPM P-R Int : 124 ms QRS Dur : 082 ms QT Int : 386 ms P-R-T Axes : 052 022 036 degrees QTc Int : 474 ms Normal sinus rhythm Normal ECG Confirmed by BRUCE KAYE, JERED ([id number]), deputy editor in chief BILL HAWKINS ([id number]) on 06/06/2020 7:58:57 AM Referred By: SEN Confirmed By:JERED BARRERA MD
--- NOTE | 2020-06-04 16:37 | ED.VIS.GEN ---
History of Present Illness Chief Complaint: Neuro S/Sx Informant: Patient Narrative: Patient is a 70-year-old male with a past medical history of gout, hypertension who presents to the emergency department for foot drop. This started at 2 PM today. He was discharged from the hospital yesterday for coronavirus infection. They were not sure if he had PEs due to the degradation of the CT scan so they started him on blood thinners prophylactically. He was started on Eliquis yesterday. He did have DVT scan studies which were negative. He denies any falls or injury to the leg. He states that he was sitting down eating whenever he stood up his foot was dragging on the ground. He is never had this before. Denies any loss of sensation. No other focal deficit including any vision changes, headache, issues with speech, other weakness in the extremities. Denies any chest pain or palpitations. He has baseline shortness of breath in the past couple of days it is no worse. He denies any abdominal pain or nausea/vomiting. No urinary symptoms. He denies any back pain. He does have a very distant history of lumbar disc protrusion. Past Medical History - Allergies and Home Meds Allergies/Adverse Reactions: Allergies No Known Allergies Allergy (Verified 05/30/20 18:58) Primary Care Physician: Seng Willoughby MD [Primary Care Provider] - 1 Day Past Medical History: - - Hypertension, gout, Covid positive Surgical History: appendectomy, - - Right inguinal hernia repair, rhinoplasty. Smoking Status: Former smoker - Family History Maternal Family History: Family History (Last Reviewed 05/31/20 @ 00:[address] Dougie Avila MD) Sister Colon cancer Father Heart disease Family History: Reports: - - Patient notes that his mother during childbirth, specifically with him. Paternal Family History: Family History (Last Reviewed 05/31/20 @ 00:[address] Dougie Avila MD) Sister Colon cancer Father Heart disease Family History: Reports: Heart Disease Sibling Family History: Family History (Last Reviewed 05/31/20 @ 00:[address] Dougie Avila MD) Sister Colon cancer Father Heart disease Family History: Reports: Cancer - Sister with a history of colon cancer. Review of Systems All systems negative except as indicated General: Denies: Chills, Fever, Sweats Eyes: Denies: Visual changes - bilaterally, Diplopia ENT: Denies: Rhinorrhea, Sore throat Cardiovascular: Denies: Chest pain, Palpitations Respiratory: Reports: Dyspnea. Denies: Cough, Dyspnea on exertion Gastrointestinal: Denies: Abdominal pain, Nausea, Vomiting, Diarrhea Genitourinary: Denies: Dysuria, Hematuria, Frequency Musculoskeletal: Denies: Back pain, Extremity Pain Skin: Denies: Rash, Wounds Neurological: Reports: Weakness - Left foot flexion. Denies: Headache, Numbness Physical Exam Vital Signs/Narrative: Vital Signs Temp Pulse Resp BP Pulse Ox 06/04/20 16:26 96.4 F L 117 H 23 H 169/98 H 94 06/04/20 16:22 96.4 F L 119 H 27 H 169/98 H 95 Inital Vital Signs reviewed: Yes General: Well nourished, Well developed, No Acute Distress Head: Normocephalic, Atraumatic Eyes: Perrl, EOMI ENT: Moist mucous membranes, No rhinorrhea Neck: Supple, Nontender Cardiovascular: Regular rhythm, No murmurs, Tachycardia Respiratory: No distress, CTA bilaterally, Chest nontender, - - Mildly tachypneic Abdomen: Soft, Nontender, Nondistended, Normal bowel sounds Back: Nontender, Normal Inspection Extremities: Nontender, No edema Skin: Normal color, No rash Neurological: Alert, Oriented x3, Cranial nerves II-XII grossly intact, Normal Sensation, -. Negative for: Disoriented, Inattentive, Left side facial droop - Patient unable to dorsiflex left foot. Sensation intact. 2+ DP pulse. Brisk capillary refill. Otherwise 5 out of 5 muscle strength of proximal extremities., Right side facial droop Psychological: Normal affect, Normal Mood Diagnostic/Tx/Re-eval - EKG Initial EKG Interpretation: - - Rate of 91 bpm and normal sinus rhythm. Normal intervals. Normal axis. No significant ST elevations or depressions. No T wave abnormalities. - Medical Decision Making Patient presents to the emergency department for foot drop that started 2 PM today. He has no back pain associated with this. No other focal findings. Given the peripheral nature of this I do not feel he has a stroke but given his recent blood thinning medication added with coronavirus we will perform CT scans of the head and neck. Patient's imaging did not reveal any acute findings to suggest a large vessel occlusion. He was evaluated by the teleneuro stroke who did not feel patient be a TPA candidate and this is most likely a peripheral problem. MRI of the lumbar spine was obtained which did not reveal any significant stenosis to explain patient's foot drop. We also did a MRI of the brain to rule out the stroke. The rest of the lab work showed the patient to have a thrombocytosis. I did discuss this with oncology who believe that this is most likely reactive and he is already on Eliquis so this this needs to be followed up as an outpatient. He also has a leukocytosis but can be contributed to his Decadron use for the COVID-19 infection. Patient did start to get some of his function back of his dorsiflexion throughout ED stay. At this time I believe he just had a peripheral neuropathy causing his symptoms and will likely improve. His compartments are nice and soft. No evidence of compartment syndrome. No pallor, has good pulse, brisk capillary refill. Patient does feel comfortable being discharged with this work-up. His tachypnea did resolve and was breathing at a normal rate at my discharge exam. He was also having a heart rate near 100 bpm which is improved as well. He is going to follow-up with his PCP tomorrow. If he develops any worsening symptoms he is to return to the emergency department immediately. He understands and is agreeable this plan. Discharged home in stable condition. All questions were answered. ED Disposition - Plan for ED Patient: Disposition: Home or Assisted Living Diagnosis: Foot drop, left, Thrombocytosis, Leukocytosis Instructions: Platelets, ED Foot Drop Referrals: Seng Willoughby MD [Primary Care Provider] - 1 Day
[2020-06-04 16:44] VITALS: BP 147/87; PULSE 104; RESP 28; O2SAT 94
[2020-06-04 16:45] LABS: Absolute Lymphocyte Count 1.65 X10^3/uL (0.83-4.51); Absolute Neutrophil Count 24.9 X10^3/uL (2.0-7.7); Basophil# 0.03 X10^3/uL; Basophil% 0.1 % (0-1); Eosinophil# 1.39 X10^3/uL; Eosinophils% 4.5 % (0-5); Hematocrit 44.3 % (40-54); Hemoglobin 15.3 g/dL (13.0-16.5); Lymphocyte # 1.65 X10^3/ul (4.0); Lymphocyte % 5.4 % (19-41); Mean Corp Hgb Conc 34.5 g/dL (32-36); Mean Corpuscular Hgb 29.2 pg (27.0-32.0); Mean Corpuscular Volume 84.5 fL (80-94); Mean Platelet Vol. 9.6 fl (6.2-12.0); Monocyte# 1.52 X10^3/uL; NRBC Flagged by Analyzer 0 % (0-5); Neutrophil # 24.85 X10^3/uL (2.7-7.7); Neutrophil % 80.9 % (47-70); POSITIVE COUNT YES; POSITIVE DIFFERENTIAL YES; POSITIVE MORPHOLOGY YES; Platelet Count 852 K/mm3 (150-450); RBC Distribution Width CV 14.5 % (11.6-14.6); RBC Distribution Width SD 44.1 fl (35.1-43.9); Red Blood Count 5.24 M/mm3 (4.6-6.2); White Blood Count 30.7 K/mm3 (4.4-11.0)
[2020-06-04 16:46] LABS: Bedside Glucose 199 mg/dL (70-110)
[2020-06-04 16:55] VITALS: BMI 30.8
[2020-06-04 16:55] LABS: Differential Indicated SCAN CRITERIA MET
--- NOTE | 2020-06-04 16:55 | MRI_ITS ---
STUDY: MRI LUMBAR SPINE WITHOUT CONTRAST REASON FOR EXAM: Male, 70 years old. left foot drop, no back pain -- sudden onset today TECHNIQUE: Standardized fat and water weighted pulse sequences were obtained in the sagittal and axial planes. COMPARISON: None FINDINGS: No evidence for acute fracture or subluxation. . There is a lesion in the T12 vertebral body demonstrating increased signal intensity on T1 and T2 and STIR imaging sequence likely representing atypical hemangioma. T12-L1: Normal endplates. Normal disc height, hydration and morphology. Normal bilateral facet joints. Normal central canal and bilateral lateral recesses. Normal bilateral intervertebral neural foramina. Normal lumbar lordosis. There is no substantial scoliosis. Normal conus medullaris that terminates at T12-L1 L1-2: Normal endplates. Normal disc height, hydration and morphology. Normal bilateral facet joints. Normal central canal and bilateral lateral recesses. Normal bilateral intervertebral neural foramina. L2-3: Normal endplates. Normal disc height, hydration and minimal annular bulge.. Normal bilateral facet joints. Normal central canal and bilateral lateral recesses. Normal bilateral intervertebral neural foramina. L3-4: Normal endplates. Normal disc height, hydration and minimal annular bulge.. Mild facet arthropathy. Normal central canal and bilateral lateral recesses. Mild to moderate bilateral neuroforaminal encroachment L4-5: Normal endplates. Normal disc height, hydration and minimal bulging disc osteophyte complex.. Mild facet arthropathy and thickening of ligamenta flava.. Normal central canal and bilateral lateral recesses. Moderate bilateral neuroforaminal encroachment. L5-S1: Normal endplates. Normal disc height, desiccation and minimal annular bulge with tiny right paracentral annular tear and disc protrusion. Bilateral facet arthropathy and thickening of ligamenta flava. Normal central canal and bilateral lateral recesses. Normal bilateral intervertebral neural foramina. Normal visualized sacral ala. Normal visualized paraspinous soft tissue structures. MRI/Spine Lumbar (Routine) IMPRESSION: No evidence for acute fracture or other significant bony pathology.. Multilevel neuroforaminal stenosis secondary to bulging annuli and facet arthropathy. Findings as above Electronically Signed: Jason Johnson MD at 19:14 EST , Service support ,
[2020-06-04 16:57] VITALS: BP 148/87; PULSE 936; RESP 26; TEMP 35.8; O2SAT 94
[2020-06-04 17:25] LABS: Anion Gap 8 (5-15); BUN 38 mg/dL (7-18); BUN/Creat Ratio 29.5 RATIO (10-20); Calcium,Total 9.6 mg/dL (8.5-10.1); Chloride 103 mmol/L (98-107); Creatinine, Serum 1.29 mg/dL (0.70-1.30); EST Glomerular Filtration Rate 59 mL/min (>60); Est Glom Filt Rate - Afr Amer 71 mL/min (>60); Estimated Creatinine Clearance 58.48 ml/min; Glucose 176 mg/dL (74-106); Potassium 5.1 mmol/L (3.5-5.1); Sodium Level 137 mmol/L (136-145)
--- NOTE | 2020-06-04 17:29 | MRI_ITS ---
STUDY: MRI BRAIN WITHOUT CONTRAST REASON FOR EXAM: Male, 70 years old. left foot drop, covid + TECHNIQUE: Standardized multiplanar fat and water weighted pulse sequences were obtained. COMPARISON: CT of the brain 06/04/2020 FINDINGS: Normal size of the ventricles and extra-axial spaces for the patient''s age. Normal white matter tracts of the supratentorial brain. Normal bilateral basal ganglia. Normal thalami. There is no extra-axial fluid accumulation. Normal flow voids within the major intracranial circulation suggesting patency by spin echo criteria. Normal sella turcica, pituitary gland, infundibular stalk, optic chiasm and hypothalamus. Normal tectal plate and pineal gland. Normal midbrain, emory and medulla. Normal cerebellum. Normal basal cisterns. Normal bilateral temporal bones. Normal bilateral internal auditory canals. No demonstrated orbital abnormality, within the constraints of a routine brain study. Normal visualized paranasal sinuses. Normal calvarium and skull base. Normal visualized soft tissue structures. Normal visualized upper cervical spine. MRI/Brain without Contrast IMPRESSION: Normal unenhanced MRI of the brain. Electronically Signed: Jason Johnson MD at 18:37 EST , Service support ,
[2020-06-04 18:00] LABS: International Normalized Ratio 1.5; Prothrombin Time (Protime)PT. 17.3 SECONDS (11.7-14.9)
--- NOTE | 2020-06-04 18:40 | RAD_ITS ---
STUDY: X-RAY CHEST REASON FOR EXAM: Male, 70 years old. stroke, acute, Hx recent COVID TECHNIQUE: AP portable COMPARISON: 05/30/2020 FINDINGS: There is right perihilar infiltrate or pulmonary edema with large right pleural effusion portions of which appear loculated consolidation of both the right lower and middle lobes. There is minor discoid atelectasis in left lower lobe with small left pleural effusion.. Normal size heart. Normal mediastinum and sandra. Normal visualized pulmonary arteries. Mildly calcified aortic arch and descending thoracic aorta. Normal visualized thoracic spine. Normal visualized ribs, clavicles, and shoulders. There is no demonstrated abnormality of the visualized soft tissue structures of the upper abdomen. RAD/Chest 1 View IMPRESSION: Asymmetric right perihilar infiltrate or pulmonary edema with large right pleural effusion and consolidation of the right lower and middle lobes. Minor discoid atelectasis at the left base in association with small left pleural effusion Electronically Signed: Jason Johnson MD at 20:01 EST , Service support ,
[2020-06-04 19:00] VITALS: BP 134/80; PULSE 83; RESP 18; TEMP 36.5; O2SAT 95
[2020-06-04 20:00] VITALS: BP 152/84; PULSE 74; RESP 18; O2SAT 94
[2020-06-05 12:26] LABS: Pathologist Review Reviewed
== END 2020-06-04 20:54 | disposition home or self-care (01) ==
PROVIDERS: Emergency Provider Emergency Medicine; PCP Family Medicine
DX: M21.372 Foot drop, left foot (principal); D47.3 Essential (hemorrhagic) thrombocythemia; D72.829 Elevated white blood cell count, unspecified; U07.1 COVID-19; I10 Essential (primary) hypertension; M10.9 Gout, unspecified; M51.26 Other intervertebral disc displacement, lumbar region; Z79.01 Long term (current) use of anticoagulants; Z79.899 Other long term (current) drug therapy; Z87.891 Personal history of nicotine dependence
CPT/HCPCS: 70450; 70496; 70498; 70551; 71045; 72148; 80048; 82962; 84484; 85025; 85610; 85730; 93005; 99284; Q9967

== ENCOUNTER → 2020-06-15 14:44 | Outpatient (CLI) | payer MEDICARE, OTHER, SELFPAY ==
[2020-06-04 16:55] VITALS: BMI 30.8
--- NOTE | 2020-06-15 14:48 | RAD_ITS ---
STUDY: X-RAY CHEST REASON FOR EXAM: Male, 70 years old. Positive covid test May 30 -- pt complaining of cough, and right side chest muscle pain now TECHNIQUE: PA and lateral views of the chest. COMPARISON: Comparison is made with prior study dated 06/04/2020. FINDINGS: Since prior study, there has been improvement of the right pleural effusion with right pulmonary infiltrate. Mild increased markings at the left lung base. Normal size heart. Normal mediastinum and sandra. Normal visualized pulmonary arteries. There is atherosclerotic calcification of the aortic arch with tortuosity. There are diffuse degenerative changes of the visualized thoracic spine. Normal visualized ribs, clavicles, and shoulders. There is no demonstrated abnormality of the visualized soft tissue structures of the upper abdomen. RAD/Chest PA and Lateral IMPRESSION: Interval decrease in size of the right pleural effusion with right pulmonary infiltrate. Mild increased markings at the left lung base. Electronically Signed: Adan Morgan MD at 15:32 EST , Service support ,
[2020-06-15 17:40] LABS: Absolute Lymphocyte Count 1.55 X10^3/uL (0.83-4.51); Absolute Neutrophil Count 8.5 X10^3/uL (2.0-7.7); Basophil# 0.04 X10^3/uL; Basophil% 0.4 % (0-1); Eosinophil# 0.08 X10^3/uL; Eosinophils% 0.7 % (0-5); Hematocrit 42.3 % (40-54); Hemoglobin 13.7 g/dL (13.0-16.5); Lymphocyte # 1.55 X10^3/ul (4.0); Lymphocyte % 13.9 % (19-41); Mean Corp Hgb Conc 32.4 g/dL (32-36); Mean Corpuscular Hgb 28.4 pg (27.0-32.0); Mean Corpuscular Volume 87.6 fL (80-94); Mean Platelet Vol. 8.8 fl (6.2-12.0); Monocyte# 0.89 X10^3/uL; NRBC Flagged by Analyzer 0 % (0-5); Neutrophil # 8.54 X10^3/uL (2.7-7.7); Neutrophil % 76.2 % (47-70); Platelet Count 526 K/mm3 (150-450); RBC Distribution Width CV 13.7 % (11.6-14.6); RBC Distribution Width SD 43.8 fl (35.1-43.9); Red Blood Count 4.83 M/mm3 (4.6-6.2); White Blood Count 11.2 K/mm3 (4.4-11.0)
[2020-06-15 17:47] LABS: Anion Gap 8 (5-15); BUN 14 mg/dL (7-18); BUN/Creat Ratio 13.1 RATIO (10-20); Calcium,Total 9.5 mg/dL (8.5-10.1); Chloride 98 mmol/L (98-107); Creatinine, Serum 1.07 mg/dL (0.70-1.30); EST Glomerular Filtration Rate 73 mL/min (>60); Est Glom Filt Rate - Afr Amer 88 mL/min (>60); Glucose 110 mg/dL (74-106); Sodium Level 135 mmol/L (136-145)
== END ==
PROVIDERS: PCP Family Medicine; Referring Provider Family Medicine; Visit Provider Family Medicine
DX: U07.1 COVID-19 (principal); R07.89 Other chest pain
CPT/HCPCS: 36415; 71046; 80048; 85025

== ENCOUNTER → 2020-06-28 14:02 | Outpatient (CLI) | payer MEDICARE, OTHER, SELFPAY ==
[2020-04-03 00:21] VITALS: BMI 31.8
[2020-06-19 09:54] VITALS: BMI 29.5
[2020-06-28 15:39] LABS: PSA,Total- Diagnostic 6.15 ng/mL (0.0-4.0)
== END ==
PROVIDERS: PCP Family Medicine; Visit Provider Nurse Practitioner Adult Health
DX: R97.20 Elevated prostate specific antigen [PSA] (principal)
CPT/HCPCS: 36415; 84153

== ENCOUNTER → 2020-07-11 06:28 | Outpatient (CLI) | payer MEDICARE, OTHER, SELFPAY ==
[2020-06-19 09:54] VITALS: BMI 29.5
--- NOTE | 2020-07-11 14:08 | NEURO ---
NCS and/or EMG Patient Report Ordering Doctor: Seng Willoughby DATE OF SERVICE: 07/11/20 Neeraj Palomino presents for electrodiagnostic testing of the lower limbs. He reports that he developed left dropfoot following a recent COVID-19 infection. Electrodiagnostic findings: The bilateral peroneal motor nerve demonstrates normal distal latency. Borderline reduced peroneal conduction velocity on the left. There is an approximately 50% drop in amplitude on the left side. Normal tibial motor response bilaterally. Borderline prolonged left tibial and left peroneal F wave. H reflex prolonged bilaterally. Sensory responses are within normal limits. On needle EMG, 1+ positive sharp waves are noted in the left tibialis anterior with decreased recruitment. Electrodiagnostic impression: This is an abnormal study. 1. 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 There is decreased amplitude compared to the opposing side with evidence of denervation. There is no evidence of conduction block at the fibular head. Consider continued therapy as there is good potential for recovery. Would consider repeat study in 4 to 6 months if symptoms persist. If there are any further questions, please do not hesitate to contact me
== END ==
PROVIDERS: PCP Family Medicine; Referring Provider Family Medicine; Visit Provider Family Medicine
DX: M21.372 Foot drop, left foot (principal)
CPT/HCPCS: 95886; 95912

== ENCOUNTER → 2020-07-13 14:31 | Outpatient (CLI) | payer MEDICARE, OTHER, SELFPAY ==
[2020-06-19 09:54] VITALS: BMI 29.5
[2020-07-13 14:40] LABS: Red Blood Cells-Urine 0 SEEN /hpf (0-5); Squamous Epithelial Cells - UA 0 SEEN /hpf (0-5); White Blood Cells 0 SEEN /hpf (0-5)
[2020-07-13 17:27] LABS: Absolute Neutrophil Count 6.2 X10^3/uL (2.0-7.7); Basophil# 0.06 X10^3/uL; Basophil% 0.7 % (0-1); Eosinophil# 0.12 X10^3/uL; Eosinophils% 1.4 % (0-5); Hemoglobin 12.6 g/dL (13.0-16.5); Lymphocyte % 19.5 % (19-41); Mean Corp Hgb Conc 31.5 g/dL (32-36); Mean Corpuscular Hgb 27.1 pg (27.0-32.0); Mean Platelet Vol. 8.4 fl (6.2-12.0); Monocyte# 0.62 X10^3/uL; Monocyte% 7.1 % (0-10); NRBC Flagged by Analyzer 0 % (0-5); Neutrophil # 6.19 X10^3/uL (2.7-7.7); Platelet Count 495 K/mm3 (150-450); RBC Distribution Width CV 14.4 % (11.6-14.6); RBC Distribution Width SD 44.8 fl (35.1-43.9); Red Blood Count 4.65 M/mm3 (4.6-6.2); White Blood Count 8.7 K/mm3 (4.4-11.0)
[2020-07-13 17:36] LABS: Color, Urine Yellow (Yellow); Glucose, Dipstick Normal (Normal); Ketone-Dipstick 5 mg/dl (Negative); Leukocyte Esterase-Dipstick 25 /ul (Negative); Nitrite-Dipstick Negative (Negative); Occult Blood-Urine Negative /ul (Negative); Protein-Dipstick 15 mg/dl (Negative); Specific Gravity, Urine 1.015 (1.002-1.030); Urine Bilirubin Dipstick Negative (Negative); Urine Clarity Clear (Clear); Urine Urobilinogen Normal (Normal)
[2020-07-13 17:43] LABS: Bacteria 1+ /hpf (None Seen); Mucous, Urine 1+ /hpf (<or=2+)
[2020-07-13 17:51] LABS: ALB/GLOB Ratio 0.7 RATIO (0.9-2.4); AST(SGOT) 12 U/L (15-37); Alanine Aminotransfer ALT/SGPT 19 U/L (16-61); Albumin, Serum 3.1 g/dL (3.2-5.0); Alkaline Phosphatase 101 U/L (45-117); Anion Gap 6 (5-15); BUN 17 mg/dL (7-18); BUN/Creat Ratio 15.6 RATIO (10-20); Calcium,Total 9.3 mg/dL (8.5-10.1); Chloride 103 mmol/L (98-107); Cholesterol 114 mg/dL (200); Creatinine, Serum 1.09 mg/dL (0.70-1.30); EST Glomerular Filtration Rate 71 mL/min (>60); Est Glom Filt Rate - Afr Amer 86 mL/min (>60); Globulin 4.7 g/dL (2.2-4.2); Glucose 98 mg/dL (74-106); High Density Lipoprotein 43 mg/dL; Potassium 3.7 mmol/L (3.5-5.1); Protein, Total 7.8 g/dL (6.4-8.2); Sodium Level 137 mmol/L (136-145); Thyroid Stim Hormone (TSH) 1.71 uIU/mL (0.358-3.74); Triglycerides 124 mg/dL; Uric Acid 5.3 mg/dL (3.5-7.2); Very Low Density Lipoprotein 25 mg/dL (5-40)
[2020-07-17 20:08] LABS: PROEL- Albumin 3.4 g/dL (2.9-4.4); PROEL- Alpha-1 Globulin 0.4 g/dL (0.0-0.4); PROEL- Alpha-2 Globulin 1.1 g/dL (0.4-1.0); PROEL- Beta Globulin 0.9 g/dL (0.7-1.3); PROEL- Gamma Globulin 1.1 g/dL (0.4-1.8); PROEL- Globulin, Total 3.4 g/dL (2.2-3.9); PROEL- TOTAL PROTEIN 6.8 g/dL (6.0-8.5)
== END ==
PROVIDERS: PCP Family Medicine; Referring Provider Family Medicine; Visit Provider Family Medicine
DX: E78.00 Pure hypercholesterolemia, unspecified (principal); I10 Essential (primary) hypertension; R73.02 Impaired glucose tolerance (oral)
CPT/HCPCS: 36415; 80053; 80061; 81001; 84165; 84443; 84550; 85025

== ENCOUNTER → 2020-07-18 14:12 | Outpatient (CLI) | payer MEDICARE, OTHER, SELFPAY ==
[2020-06-19 09:54] VITALS: BMI 29.5
[2020-07-20 20:07] LABS: PROEL- A/G Ratio 0.8 (0.7-1.7); PROEL- Albumin 3.1 g/dL (2.9-4.4); PROEL- Alpha-1 Globulin 0.3 g/dL (0.0-0.4); PROEL- Alpha-2 Globulin 1.1 g/dL (0.4-1.0); PROEL- Gamma Globulin 1.2 g/dL (0.4-1.8); PROEL- Globulin, Total 3.7 g/dL (2.2-3.9); PROEL- TOTAL PROTEIN 6.8 g/dL (6.0-8.5)
== END ==
PROVIDERS: PCP Family Medicine; Referring Provider Family Medicine; Visit Provider Family Medicine
DX: E77.8 Other disorders of glycoprotein metabolism (principal)
CPT/HCPCS: 36415; 84165

== ENCOUNTER → 2020-08-22 10:17 | Outpatient (CLI) | payer MEDICARE, OTHER, SELFPAY ==
[2020-08-22 09:07] VITALS: BMI 29.5
--- NOTE | 2020-08-22 10:19 | RAD_ITS ---
STUDY: X-RAY CHEST REASON FOR EXAM: Male, 70 years old. sob TECHNIQUE: 2 views COMPARISON: Prior chest radiograph of 06/15/[address] exam of 05/30/2020 FINDINGS: There continues to be a loculated posterior right pleural effusion that has diminished somewhat. There continues to be multifocal areas of volume loss in the right mid and lower lung also somewhat improved from the prior exam. Atelectatic changes of the left lung base are also improving. Stable cardiac size. Normal mediastinum and sandra. Normal visualized pulmonary arteries. There is atherosclerotic calcification of the aortic arch with tortuosity. Mild degenerative changes of the thoracic spine. Normal visualized ribs, clavicles, and shoulders. There is no demonstrated abnormality of the visualized soft tissue structures of the upper abdomen. RAD/Chest PA and Lateral IMPRESSION: Persistent but improving right pleural effusion appearing to be at least partially loculated posteriorly. Somewhat improving right lung atelectasis. Minor atelectasis resolving at the left lung base. Electronically Signed: Christiana Chowdhury MD at 16:57 EDT , Service support ,
[2020-08-22 12:26] LABS: Absolute Lymphocyte Count 1.57 X10^3/uL (0.83-4.51); Absolute Neutrophil Count 5.2 X10^3/uL (2.0-7.7); Basophil# 0.09 X10^3/uL; Basophil% 1.2 % (0-1); Eosinophils% 1.3 % (0-5); Hematocrit 45.4 % (40-54); Hemoglobin 14.8 g/dL (13.0-16.5); Lymphocyte # 1.57 X10^3/ul (4.0); Lymphocyte % 20.6 % (19-41); Mean Corp Hgb Conc 32.6 g/dL (32-36); Mean Corpuscular Hgb 28.3 pg (27.0-32.0); Mean Corpuscular Volume 86.8 fL (80-94); Mean Platelet Vol. 8.5 fl (6.2-12.0); Monocyte% 7.9 % (0-10); NRBC Flagged by Analyzer 0 % (0-5); Neutrophil # 5.17 X10^3/uL (2.7-7.7); Neutrophil % 67.8 % (47-70); Platelet Count 372 K/mm3 (150-450); RBC Distribution Width CV 16.3 % (11.6-14.6); RBC Distribution Width SD 49.7 fl (35.1-43.9); Red Blood Count 5.23 M/mm3 (4.6-6.2); White Blood Count 7.6 K/mm3 (4.4-11.0)
[2020-08-22 12:46] LABS: BNP,B-Type NATRIURETIC PEPTIDE 5.3 pg/mL (0-100)
[2020-08-22 12:49] LABS: Anion Gap 6 (5-15); BUN 17 mg/dL (7-18); BUN/Creat Ratio 17.1 RATIO (10-20); Calcium,Total 9.6 mg/dL (8.5-10.1); Chloride 104 mmol/L (98-107); Creatinine, Serum 0.99 mg/dL (0.70-1.30); EST Glomerular Filtration Rate 79 mL/min (>60); Est Glom Filt Rate - Afr Amer 96 mL/min (>60); Glucose 90 mg/dL (74-106); Potassium 3.9 mmol/L (3.5-5.1); Sodium Level 135 mmol/L (136-145)
== END ==
PROVIDERS: PCP Family Medicine; Referring Provider Internal Medicine Cardiovascular Disease; Visit Provider Internal Medicine Cardiovascular Disease
DX: R06.00 Dyspnea, unspecified (principal); I10 Essential (primary) hypertension
CPT/HCPCS: 36415; 71046; 80048; 83880; 85025

== ENCOUNTER → 2020-08-24 13:57 | Outpatient (CLI) | payer MEDICARE, OTHER, SELFPAY ==
[2020-08-22 09:07] VITALS: BMI 29.5
--- NOTE | 2020-08-24 13:59 | ECHOCS_ITS ---
Reason For Study: DYSPNEA/SOB Procedure This was a 2D Doppler, Color Flow transthoracic echocardiogram. The study was technically difficult. Exam performed in department. Left Ventricle Normal LV size. Left ventricular systolic function is normal. The estimated ejection fraction is 65 %. Stage 1 diastolic dysfunction. No regional wall motion abnormalities noted. Right Ventricle Normal RV size. Normal systolic function. Atria Normal left atrium. Normal right atrium. Mitral Valve Normal mitral valve. Tricuspid Valve Normal tricuspid valve. Mild (1+) tricuspid valve insufficiency. Pulmonary artery systolic pressure is 35 mmHg. Aortic Valve Normal aortic valve. Trisinus/trileaflet aortic valve. Pulmonic Valve Normal pulmonic valve. Great Vessels Normal aortic root. The pulmonary artery is normal size. Normal inferior vena cava. Pericardium/Pleural No pericardial effusion. Medication 22 gauge I.V. with prn adaptor inserted into right arm. Diluted definity 4ml given slow IV push to enhance endocardial definition. MMode/2D Measurements & Calculations LVIDd: 3.7 cm IVSd: 1.0 cm Ao root diam: 3.3 cm LVIDs: 2.4 cm LVPWd: 0.98 cm RVDd: 3.5 cm FS: 33.5 % LAV(MOD-bp): 36.5 ml LVAd ap4: 29.0 cm2 SV(MOD-sp4): 56.3 ml LAV(MOD-bp) Indexed: 16.5 ml/m2 EDV(MOD-sp4): 88.6 ml LAV(MOD-sp2): 37.3 ml EDV(sp4-el): 91.5 ml LAV(MOD-sp4): 35.6 ml LVAs ap4: 15.5 cm2 ESV(MOD-sp4): 32.3 ml ESV(sp4-el): 32.7 ml EF(MOD-sp4): 63.6 % EF(sp4-el): 64.3 % SV(sp4-el): 58.9 ml LA A4 area: 15.5 cm2 LA dimension(2D): 3.2 cm RA A4 area: 10.7 cm2 Time Measurements MV dec time: 0.20 sec Doppler Measurements & Calculations MV E max florin: 65.7 cm/sec Lat Peak E' Florin: 14.2 cm/sec Med Peak E' Florin: 10.7 cm/sec MV A max florin: 99.0 cm/sec E/E' lat: 4.6 E/E' med: 6.2 MV E/A: 0.66 Ao V2 max: 157.5 cm/sec LV V1 max: 139.2 cm/sec PA V2 max: 122.2 cm/sec Ao max P.9 mmHg LV V1 max P.8 mmHg PI end-d florin: 93.2 cm/sec TR max florin: 277.6 cm/sec TR max P.8 mmHg ECHO/Echo Complete W/ Contrast Interpretation Summary Normal LV size. Left ventricular systolic function is normal. The estimated ejection fraction is 65 %. Stage 1 diastolic dysfunction. Pulmonary artery systolic pressure is 35 mmHg. Liver cyst noted. Contrast injection was performed. Ordering Physician: Christiano Yuan Referring Physician: GEORGIANA MCFADDEN Performed By: Natalie Ruiz RDCS
== END ==
PROVIDERS: PCP Family Medicine; Referring Provider Internal Medicine Cardiovascular Disease; Visit Provider Internal Medicine Cardiovascular Disease
DX: R06.02 Shortness of breath (principal); R06.00 Dyspnea, unspecified
CPT/HCPCS: 93306; Q9957; A4216; C8929

== ENCOUNTER → 2020-08-28 12:18 | Outpatient (CLI) | payer MEDICARE, OTHER, SELFPAY ==
[2020-08-22 09:07] VITALS: BMI 29.5
--- NOTE | 2020-08-28 12:20 | US_ITS ---
STUDY: SUPERFICIAL ULTRASOUND - RIGHT PLEURAL CAVITY. REASON FOR EXAM: Male, 70 years old. Pleural effusion RT TECHNIQUE: A superficial ultrasound was performed with real-time and static pak-scale imaging. COMPARISON: None. FINDINGS: Imaging was obtained for assessment of possible pleural effusion. No pleural effusion is seen. US/Chest IMPRESSION: No pleural effusion is seen. Electronically Signed: Adan Morgan MD at 15:20 EDT , Service support ,
[2020-08-28 12:36] VITALS: BP 141/78; PULSE 94; RESP 16; O2SAT 99
== END ==
PROVIDERS: PCP Family Medicine; Visit Provider Nurse Practitioner Acute Care
DX: J90 Pleural effusion, not elsewhere classified (principal)
CPT/HCPCS: 76604

== ENCOUNTER → 2020-09-03 14:54 | Outpatient (CLI) | payer MEDICARE, OTHER, SELFPAY ==
[2020-08-22 09:07] VITALS: BMI 29.5
--- NOTE | 2020-09-03 14:56 | CT_ITS ---
ACR Level 3 findings have been noted. An addendum which confirms receipt of the report will follow. INDICATION: dyspnea on exertion EXAMINATION: CT Chest W/O Contrast Injection TECHNIQUE: Helically acquired images were obtained of the chest without IV contrast. A radiation dose optimization technique was used for this scan. COMPARISON: 05/30/2020. FINDINGS: Lungs: There is right lower lobe airspace consolidation with air bronchograms. Mediastinum: The cardiomediastinal silhouette is not enlarged. No mediastinal, hilar or axillary adenopathy. Mild aortic arch and coronary artery calcifications. Pleura: There is a 6.6 x 2.4 cm loculated right pleural effusion versus empyema. There is free fluid tracking within the major and minor fissure on the right. Bones/Soft tissues: Mild scattered degenerative changes of the visualized spine. Upper abdomen: Innumerable hepatic cysts. CT/Chest without Contrast IMPRESSION: 6.6 cm right loculated pleural effusion versus empyema. Right lower lobe airspace consolidation, some of which appears to have fluid density. Cannot rule out lung abscess. Recommend repeat chest CT with IV contrast. Electronically Signed: Jeff Melvin MD at 23:32 EDT Tel , Service support ,
--- NOTE | 2020-09-03 23:42 | ED.RN ---
radiology support called to see if report was received at this time
== END ==
PROVIDERS: PCP Family Medicine; Referring Provider Nurse Practitioner Acute Care; Visit Provider Nurse Practitioner Acute Care
DX: J90 Pleural effusion, not elsewhere classified (principal)
CPT/HCPCS: 71250

== ENCOUNTER → 2020-09-17 | Outpatient (CLI) | payer MEDICARE, OTHER, SELFPAY ==
[2020-09-10 10:42] VITALS: BMI 30.1
--- NOTE | 2020-09-17 | PROSBIL_PTH ---
PATIENT: SUZETTE GOTTLIEB LOC: [facility] U#:[id number] AGE/SX: 70/M ROOM: RE09/17/[address]: Dr. Edd Nur MD : 1950 BED: DIS: 09/17/2020 SPEC #: [id number] RECD: 09/17/20 16:50 STATUS: LETY REJayna #: [id number] SANTOS: 09/17/20 00:[address]: Edd Nur DEPT: SURGICAL PATHOLOGY RECD BY: Richard Moreno ENTERED: 09/18/20 08:07 SP TYPE: PROST BX ELENA DR: Dr. Seng Willoughby MD Tissues: A - PROSTATE RIGHT B - PROSTATE RIGHT C - PROSTATE RIGHT D - PROSTATE LEFT E - PROSTATE LEFT F - PROSTATE LEFT Procedures: PROSTATE BX HEADER OPERATION: Prostate biopsy PRE-OP DIAGNOSIS: R97.20 TISSUE SUBMITTED: A - Right apex, B - Right mid, C - Right base, D - Left apex, E - Left mid, F - Left base MICROSCOPIC DIAGNOSIS A. Right prostate, apex, core biopsy: Prostatic tissue, negative for malignancy. B. Right prostate, mid, core biopsy: Prostatic tissue, negative for malignancy. C. Right prostate, base, core biopsy: Prostatic tissue, negative for malignancy. D. Left prostate, apex, core biopsy: Prostatic tissue, negative for malignancy. E. Left prostate, mid, core biopsy: Prostatic tissue, negative for malignancy. F. Left prostate, base, core biopsy: Prostatic tissue, negative for malignancy. SJ:ricardo 09/19/2020 MICROSCOPIC DESCRIPTION Slides are reviewed. GROSS DESCRIPTION A - Received is one container designated prostate, right apex. The specimen consists of two elongated fragments of light miller-white soft tissue each measuring 1 cm in length and 0.1 cm in diameter. The specimen is totally submitted in one cassette. B - Received is one container designated prostate, right mid. The specimen consists of two elongated fragments of light miller-white soft tissue measuring 1.5 and 1.8 cm in length and 0.1 cm in diameter. The specimen is totally submitted in one cassette. C - Received is one container designated prostate, right base. The specimen consists of two elongated fragments of light miller-white soft tissue measuring 1.5 and 1.8 cm in length and 0.1 cm in diameter. The specimen is totally submitted in one cassette. D - Received is one container designated prostate, left apex. The specimen consists of two elongated fragments of light miller-white soft tissue measuring 0.9 and 1 cm in length and 0.1 cm in diameter. The specimen is totally submitted in one cassette. E - Received is one container designated prostate, left mid. The specimen consists of three elongated fragments of light miller-white soft tissue measuring 0.5 to 1 cm in length and 0.1 cm in diameter. The specimen is totally submitted in one cassette. F - Received is one container designated prostate, left base. The specimen consists of two elongated fragments of light miller-white soft tissue measuring 0.7 and 1.5 cm in length and 0.1 cm in diameter. The specimen is totally submitted in one cassette. / SJ:rg 09/18/20 TC:5 CPT: G0146
== END | disposition home or self-care (01) ==
LOC: LABSPEC 17:01
PROVIDERS: PCP Family Medicine; Referring Provider Urology; Visit Provider Urology
DX: R97.20 Elevated prostate specific antigen [PSA] (principal)
CPT/HCPCS: 88305; G0416

== ENCOUNTER 2020-11-21 17:00 | Outpatient (RCR) | payer MEDICARE, OTHER, SELFPAY ==
[2020-06-19 09:54] VITALS: BMI 29.5
--- NOTE | 2020-06-22 14:44 | HP.PTEVAL ---
Patient's Visit Information SUZETTE GOTTLIEB is a 70 year old M referred to Physical Therapy by Dr. Seng Willoughby MD with a diagnosis of L foot drop. Date of Evaluation: 06/22/20 Physical Therapist: TERRENCE Jefferson - Visit Plan Frequency: 2x /Week Duration: 6 Weeks Plan: Recommending L ankle AFO as Pt tripped and caught L foot twice with walking. Called Dr Blackmon office and LM with a nurse about the reccommendation. 2X/ week for 6 weeks for L foot PROM, AAROM, AROM L ankle and foot, stretching, strengthening, gait training, with a HEP. Reccommend FES as well in conjunction with AAROM. HEP: Seated soleus stretch, gastroc towel stretch, seated Active DF as best he can with using a yellow T-band to help pull through ROM - Subjective Pt was admitted to [facility] on 05-30-2020. Was released from hospital on 06-04-2020 and back in hospital on 06-05-2020 with L drop foot. He has a funny sensation in the foot. It is tingling. He had a bout of gout 2 weeks ago in the foot also. It is not cold. He has an EMG scheduled at the end of July. He periodically trips on that foot and so far he has caught himself. His knee does not give out. He is able to go up and down steps recip with a hand rail. He is able to drive cause his R foot is ok. - Pain L ankle Pain Intensity (Out of 10): 0 - Objective L AROM ankle PF 54 degrees, DF 0 degrees. R AROM ankle DF 13 and PF 57. L ankle MMT: DF trace, PF 4-/5, INV/ EV 3+/5. R ankl eMMT: DF, PF, INV, EV 4/5. Gait: walks with increase L knee flexion to clear L foot with gait with increase incidence of catching L foot with gait. Pt has senstation on the upper yanse/ calf. Tight gastroc on the L - Goals Goal 1:: I HEP Goal Time Frame: 8-12 Weeks Goal 2:: Increase L ankle DF to neutral Goal Time Frame: 8-12 Weeks Goal 3:: Be able to walk with or without AFO without catching his toe with gait. Goal Time Frame: 8-12 Weeks - Rehabilitation Potential Rehabilitation Potential: Good - Anticipated Interventions Patient/Client Instruction: Educate patient on: Condition, Plan of Care For the Purpose of:: To increase ROM, To improve nutrient delivery to tissue, To improve muscle performance and motor function, To improve ability to perform ADL's, To increase tolerance to activity/condition/position, To improve performance and independence with ADL's, To decrease level of supervision to perform tasks, To improve ability of physical actions for home/community/work/leisure, To improve gait and locomotor functions, To decrease soft tissue restriction, To increase flexibility/ROM, To improve balance, To improve safety with gait Therapeutic Exercise to Include: Strength training, Balance training, Flexibilty training, Gait and locomotor training, Neuromotor development, Passive ROM, Active ROM For the Purpose of:: To increase ROM, To improve nutrient delivery to tissue, To increase oxygenation perfusion, To improve muscle performance and motor function, To improve ability to perform ADL's, To increase tolerance to activity/condition/position, To improve performance and independence with ADL's, To decrease level of supervision to perform tasks, To improve ability of physical actions for home/community/work/leisure, To improve gait and locomotor functions, To improve health of tissue, To decrease soft tissue restriction, To increase flexibility/ROM, To improve balance, To improve safety with gait Functional Training to Include: Gait training For the Purpose of:: To improve gait and locomotor functions, To improve safety with gait, To improve safety Manual Therapy Techniques to Include: Passive ROM, Soft tissue mobilization For the Purpose of:: To increase ROM, To improve nutrient delivery to tissue, To improve muscle performance and motor function Functional electric stimulation: Yes For the Purpose of:: To increase ROM, To improve nutrient delivery to tissue, To improve muscle performance and motor function, To improve ability to perform ADL's, To increase tolerance to activity/condition/position, To improve performance and independence with ADL's Thank you for the opportunity to evaluate your patient. For Medicare and Medicare HMO plans, please review the plan of care and approve it. It will need to be FAXED BACK to us at [phone] for Medicare purposes. For Medicare only, by signing this I certify the plan of care. Please let me know if there are questions or concerns regarding this plan of care. Physician Signature: Date:
--- NOTE | 2020-07-25 13:37 | HP.PTREVAL_ITS ---
Dr. Seng Willoughby MD, It has been my pleasure to treat SUZETTE GOTTLIEB over the last 10 visits for L foot drop. Please see the progress note below for an update on the physical therapy plan of care! Subjective: Pt reports that he is getting used to the AFO... walking much better. Objective/Function: Improved DF AROM today! Some small toe movement as well. Pt walked great with his AFO.... Plan Plan: Pt will be seen 1X/ week for 5 weeks to see progress on DF AROM and will do HEP. Continue with FES with AAROM ankle DF. Start some functional weight bearing stretngthening activities (pt will bring his tennis shoes). 2X/ week for 6 weeks for L foot PROM, AAROM, AROM L ankle and foot, stretching, strengthening, gait training, with a HEP. Reccommend FES as well in conjunction with AAROM. HEP: Seated soleus stretch, gastroc towel stretch, seated Active DF as best he can with using a yellow T-band to help pull through ROM Goals Goal 1:: I HEP Goal Time Frame: 8-12 Weeks Goal 2:: Increase L ankle DF to neutral Goal Time Frame: 8-12 Weeks Goal 3:: Be able to walk with or without AFO without catching his toe with gait. Goal Time Frame: 8-12 Weeks Anticipated Interventions Patient/Client Instruction: Educate patient on: Condition, Plan of Care For the Purpose of:: To increase ROM, To improve nutrient delivery to tissue, To improve muscle performance and motor function, To improve ability to perform ADL's, To increase tolerance to activity/condition/position, To improve performance and independence with ADL's, To decrease level of supervision to perform tasks, To improve ability of physical actions for home/community/work/leisure, To improve gait and locomotor functions, To decrease soft tissue restriction, To increase flexibility/ROM, To improve balance, To improve safety with gait Therapeutic Exercise to Include: Strength training, Balance training, Flexibilty training, Gait and locomotor training, Neuromotor development, Passive ROM, Active ROM For the Purpose of:: To increase ROM, To improve nutrient delivery to tissue, To increase oxygenation perfusion, To improve muscle performance and motor function, To improve ability to perform ADL's, To increase tolerance to acti vity/condition/position, To improve performance and independence with ADL's, To decrease level of supervision to perform tasks, To improve ability of physical actions for home/community/work/leisure, To improve gait and locomotor functions, To improve health of tissue, To decrease soft tissue restriction, To increase flexibility/ROM, To improve balance, To improve safety with gait Functional Training to Include: Gait training For the Purpose of:: To improve gait and locomotor functions, To improve safety with gait, To improve safety Manual Therapy Techniques to Include: Passive ROM, Soft tissue mobilization For the Purpose of:: To increase ROM, To improve nutrient delivery to tissue, To improve muscle performance and motor function Functional electric stimulation: Yes For the Purpose of:: To increase ROM, To improve nutrient delivery to tissue, To improve muscle performance and motor function, To improve ability to perform ADL's, To increase tolerance to activity/condition/position, To improve performance and independence with ADL's Please do not hesitate to contact me at [phone] by phone or if you have questions or concerns regarding this new plan of care! Sincerely, Phyllis Shields MPT
--- NOTE | 2020-11-21 18:59 | HP.PTREVAL ---
Dr. Seng Willoughby MD, It has been my pleasure to treat SUZETTE GOTTLIEB over the last 14 visits for L foot drop. Please see the progress note below for an update on the physical therapy plan of care! Subjective: Pt had a thoracotomy and pulled stuff of his lung. He has been doing a fair amount of walking and golf. He can not hear his drop foot anymore. He has not been using his AFO. No falls Objective/Function: L DF 7 degrees and R DF 9 degrees. Gait: normal gait pattern with no signs of antalgic gait. L DF 4/5 and R 4+/5. Pt is able to do standing B heel and toe raises. Pt struggled with single leg L toe raises Plan Plan: Hold chart. Pt to go home and do L ankle DF with blue t-band, stretch L gastroc, perform standing heel and toe raises and call in 1 month to see if he is seeing additional improvements. Goals Goal 1:: I HEP Goal Time Frame: 8-12 Weeks Goal Progress: Goal Met Goal 2:: Increase L ankle DF to neutral Goal Time Frame: 8-12 Weeks Goal Progress: Goal Met Goal 3:: Be able to walk with or without AFO without catching his toe with gait. Goal Time Frame: 8-12 Weeks Goal Progress: Goal Met Anticipated Interventions Patient/Client Instruction: Educate patient on: Condition, Plan of Care For the Purpose of:: To increase ROM, To improve nutrient delivery to tissue, To improve muscle performance and motor function, To improve ability to perform ADL's, To increase tolerance to activity/condition/position, To improve performance and independence with ADL's, To decrease level of supervision to perform tasks, To improve ability of physical actions for home/community/work/leisure, To improve gait and locomotor functions, To decrease soft tissue restriction, To increase flexibility/ROM, To improve balance, To improve safety with gait Therapeutic Exercise to Include: Strength training, Balance training, Flexibilty training, Gait and locomotor training, Neuromotor development, Passive ROM, Active ROM For the Purpose of:: To increase ROM, To improve nutrient delivery to tissue, To increase oxygenation perfusion, To improve muscle performance and motor function, To improve ability to perform ADL's, To increase tolerance to activity/condition/position, To improve performance and independence with ADL's, To decrease level of supervision to perform tasks, To improve ability of physical actions for home/community/work/leisure, To improve gait and locomotor functions, To improve health of tissue, To decrease soft tissue restriction, To increase flexibility/ROM, To improve balance, To improve safety with gait Functional Training to Include: Gait training For the Purpose of:: To improve gait and locomotor functions, To improve safety with gait, To improve safety Manual Therapy Techniques to Include: Passive ROM, Soft tissue mobilization For the Purpose of:: To increase ROM, To improve nutrient delivery to tissue, To improve muscle performance and motor function Functional electric stimulation: Yes For the Purpose of:: To increase ROM, To improve nutrient delivery to tissue, To improve muscle performance and motor function, To improve ability to perform ADL's, To increase tolerance to activity/condition/position, To improve performance and independence with ADL's Please do not hesitate to contact me at [phone] by phone or if you have questions or concerns regarding this new plan of care! Sincerely, Phyllis Shields, MPT
== END 2020-11-21 19:00 | disposition home or self-care (01) ==
LOC: PT 17:00
PROVIDERS: PCP Family Medicine; Referring Provider Family Medicine; Visit Provider Family Medicine
DX: M21.372 Foot drop, left foot (principal)
CPT/HCPCS: 97110; 97161; 97530

== ENCOUNTER → 2020-11-22 16:51 | Outpatient (CLI) | payer MEDICARE, OTHER, SELFPAY ==
[2020-11-22 16:13] VITALS: BMI 29.9
[2020-11-22 17:39] LABS: Anion Gap 7 (5-15); BUN 19 mg/dL (7-18); BUN/Creat Ratio 16.4 RATIO (10-20); Calcium,Total 8.9 mg/dL (8.5-10.1); Chloride 102 mmol/L (98-107); Creatinine, Serum 1.16 mg/dL (0.70-1.30); EST Glomerular Filtration Rate 66 mL/min (>60); Est Glom Filt Rate - Afr Amer 80 mL/min (>60); Glucose 88 mg/dL (74-106); Potassium 4.1 mmol/L (3.5-5.1); Sodium Level 139 mmol/L (136-145)
== END ==
PROVIDERS: PCP Family Medicine; Visit Provider Internal Medicine Cardiovascular Disease
DX: I10 Essential (primary) hypertension (principal)
CPT/HCPCS: 36415; 80048; 83735

== ENCOUNTER → 2020-12-06 07:12 | Outpatient (CLI) | payer MEDICARE, OTHER, SELFPAY ==
[2020-11-22 16:13] VITALS: BMI 29.9
[2020-12-05 06:11] VITALS: BMI 30.7
--- NOTE | 2020-12-06 18:31 | STRESSREP ---
Stress Test Report Exercise cardial perfusion stress test. 70-year-old man with a history of shortness of breath. Stress protocol: Resting EKG demonstrates normal sinus rhythm with a rate of 67 bpm. Resting blood pressure is 130/82 mmHg. The patient exercised according to the regular Hipolito protocol for total duration of 6 minutes and 57 seconds. The maximum heart rate attained was 162 bpm which was 108% of max infected heart rate the maximum workload was 8.4 metabolic equivalents. Patient completed 57 seconds into stage III of the Hipolito protocol. At rest there were no ST or T wave changes noted to suggest ischemia. At peak exercise upsloping ST changes were noted which did not meet the criteria for ischemia. No clinical angina was noted the test was terminated due to shortness of breath. Occasional premature ventricular complex was noted. The peak blood pressure was 170/80 mmHg with a rate-pressure product of 20,200. Myocardial perfusion protocol. 14.3 mCi of technetium 99m sestamibi was injected at rest. The patient exercised according to regular Hipolito protocol for 6 minutes and 57 seconds. At peak exercise 43.9 mCi of technetium 99m sestamibi was injected stress images were obtained stress and rest images were reconstructed and compared in the short axis vertical long horizontal long axis. Gated images were also obtained for Perfusion SPECT analysis: Review of the stress images demonstrate normal uptake of tracer noted in all areas of the myocardium. The resting images similarly demonstrate normal uptake of tracer noted in all areas of the myocardium. There was some GI uptake noted however which was obscuring the inferior wall. No wall motion abnormalities were noted however. Gated SPECT analysis: The gated ejection fraction is 68%. Conclusion: Exercise myocardial perfusion stress test with no evidence of ischemia at a moderate workload. Preserved ejection fraction. Mild functional aerobic impairment.
== END ==
PROVIDERS: PCP Family Medicine; Referring Provider Internal Medicine Cardiovascular Disease; Visit Provider Internal Medicine Cardiovascular Disease
DX: R06.02 Shortness of breath (principal)
CPT/HCPCS: 78452; 93017; A9500; A4216

== ENCOUNTER → 2021-04-16 07:35 | Outpatient (CLI) | payer MEDICARE, OTHER, SELFPAY ==
[2021-04-16 07:42] LABS: Bacteria 0 SEEN /hpf (None Seen); Mucous, Urine 0 SEEN /hpf (<or=2+); Red Blood Cells-Urine 0 SEEN /hpf (0-5); Squamous Epithelial Cells - UA 0 SEEN /hpf (0-5); White Blood Cells 0 SEEN /hpf (0-5)
[2021-04-16 09:52] LABS: Absolute Lymphocyte Count 2.13 X10^3/uL (0.83-4.51); Absolute Neutrophil Count 3.7 X10^3/uL (2.0-7.7); Basophil# 0.08 X10^3/uL; Basophil% 1.2 % (0-1); Hematocrit 46.6 % (40-54); Hemoglobin 15.8 g/dL (13.0-16.5); Lymphocyte # 2.13 X10^3/ul (0.83-4.51); Lymphocyte % 32.1 % (19-41); Mean Corp Hgb Conc 33.9 g/dL (32-36); Mean Corpuscular Hgb 29.6 pg (27.0-32.0); Mean Corpuscular Volume 87.3 fL (80-94); Mean Platelet Vol. 8.6 fl (6.2-12.0); Monocyte# 0.54 X10^3/uL; Monocyte% 8.1 % (0-10); NRBC Flagged by Analyzer 0 % (0-5); Neutrophil # 3.66 X10^3/uL (2.7-7.7); Neutrophil % 55.3 % (47-70); Platelet Count 285 K/mm3 (150-450); RBC Distribution Width CV 13.6 % (11.6-14.6); RBC Distribution Width SD 43.1 fl (35.1-43.9); Red Blood Count 5.34 M/mm3 (4.6-6.2); White Blood Count 6.6 K/mm3 (4.4-11.0)
[2021-04-16 09:54] LABS: Color, Urine Yellow (Yellow); Glucose, Dipstick Normal (Normal); Ketone-Dipstick Negative (Negative); Leukocyte Esterase-Dipstick Negative /ul (Negative); Nitrite-Dipstick Negative (Negative); Occult Blood-Urine Negative /ul (Negative); Protein-Dipstick Negative (Negative); Specific Gravity, Urine 1.015 (1.002-1.030); Urine Bilirubin Dipstick Negative (Negative); Urine Clarity Clear (Clear); Urine Urobilinogen Normal (Normal)
[2021-04-16 10:07] LABS: PSA,Total- Diagnostic 7.86 ng/mL (0.0-4.0)
[2021-04-16 10:14] LABS: ALB/GLOB Ratio 1.1 RATIO (0.9-2.4); AST(SGOT) 17 U/L (15-37); Alanine Aminotransfer ALT/SGPT 21 U/L (16-61); Albumin, Serum 3.8 g/dL (3.2-5.0); Alkaline Phosphatase 78 U/L (45-117); Anion Gap 7 (5-15); BUN 17 mg/dL (7-18); Chloride 104 mmol/L (98-107); Cholesterol 158 mg/dL (200); Creatinine, Serum 1.13 mg/dL (0.70-1.30); EST Glomerular Filtration Rate 68 mL/min (>60); Est Glom Filt Rate - Afr Amer 82 mL/min (>60); Globulin 3.4 g/dL (2.2-4.2); Glucose 86 mg/dL (74-106); High Density Lipoprotein 48 mg/dL; Potassium 3.6 mmol/L (3.5-5.1); Protein, Total 7.2 g/dL (6.4-8.2); Sodium Level 139 mmol/L (136-145); Triglycerides 132 mg/dL; Uric Acid 6.1 mg/dL (3.5-7.2); Very Low Density Lipoprotein 26 mg/dL (5-40)
== END ==
PROVIDERS: PCP Family Medicine; Referring Provider Urology; Visit Provider Urology
DX: E78.00 Pure hypercholesterolemia, unspecified (principal); I10 Essential (primary) hypertension; M10.9 Gout, unspecified; R97.20 Elevated prostate specific antigen [PSA]
CPT/HCPCS: 36415; 80053; 80061; 81001; 84153; 84550; 85025

== ENCOUNTER → 2021-04-26 15:24 | Outpatient (CLI) | payer MEDICARE, OTHER, SELFPAY ==
--- NOTE | 2021-04-26 15:28 | MRI_ITS ---
STUDY: MR PELVIS WITH AND WITHOUT CONTRAST (PROSTATE) REASON FOR EXAM: Male, 71 years old. Elevated PSA TECHNIQUE: Standardized multiparametric prostate MRI with T1, T2, DWI/ADC sequences were obtained in 3 orthogonal planes, and dynamic contrast enhancement sequences. 20 ml of dotarem contrast material was administered intravenously for the contrast portion of the examination. COMPARISON: None. FINDINGS: The prostate volume measures 62 mm3. The contours of the prostate gland are lobulated. There is mass effect on the bladder base. The transition zone is heterogenous. PI-RADS DWI score 2 - Hypointense within a BPH nodule on ADC. PI-RADS T2W score 2 - A mostly encapsulated nodule OR a homogeneous circumscribed nodule without encapsulation (atypical nodule) or a homogeneous mildly hypointense area between nodules.. Contrast enhancement no early or contemporaneous enhancement; or diffuse multifocal enhancement NOT corresponding to a focal finding on T2W and/or DWI or focal ehancement responding to a lesion demonstrating features of BPH onT2WI (including features of extruded BPH in the PZ). The peripheral zone is homogenous. PI-RADS DWI score 1 - No abnormality (normal) on ADC or high b-value DWI. PI-RADS T2W score 2 - Linear, wedge-shaped, or diffuse mild hypointensity, usually with indistinct margin. Contrast enhancement no early or contemporaneous enhancement; or diffuse multifocal enhancement NOT corresponding to a focal finding on T2W and/or DWI or focal enhancement responding to a lesion demonstrating features of BPH onT2WI (including features of extruded BPH in the PZ). The seminal vesicles demonstrate normal margins and T2 signal pattern. No mass lesion or invasion depicted. The rectoprostatic angles are normal. Urinary bladder is normal without wall thickening. The vascular structures of the are normal. The visualized hollow viscus structures are normal. No bone marrow edema or mass lesion depicted. MRI/Pelvis W/WO Contrast IMPRESSION: 1. PIRADS v2.1 2019 -- 2 - Low (clinically significant cancer is unlikely). Electronically Signed: Isaac Michelle MD (Brooks) at 16:11 EST , Service support ,
== END ==
PROVIDERS: PCP Family Medicine; Referring Provider Urology; Visit Provider Urology
DX: R97.20 Elevated prostate specific antigen [PSA] (principal)
CPT/HCPCS: 72197; A9575

== ENCOUNTER 2021-05-27 08:23 | Outpatient (CLI) | payer MEDICARE, OTHER, SELFPAY ==
--- NOTE | 2021-05-27 08:27 | US_ITS ---
STUDY: ABDOMINAL ULTRASOUND - RIGHT UPPER QUADRANT REASON FOR VISIT: Male, 71 years old gaseous epigastric pain TECHNIQUE: Ultrasound evaluation of the right upper quadrant was performed with real-time and static pak-scale imaging. TECHNICAL QUALITY: Adequate. COMPARISON: None. FINDINGS: Liver: The liver measures 17.7 cm. There is normal echogenicity of the liver. The bile ducts are within normal limits. There is hepatic color flow. The direction of portal flow is hepatopetal. Multiple small cysts are seen throughout the right and left lobes of the liver. The largest cyst measures 4.7 cm x 4.6 cm x 3.5 cm. Gallbladder: Normal distended gallbladder. The gallbladder wall measures 2.0 mm. There is a negative sonographic Rodriguez''s sign. There is no pericholecystic fluid. There are no gallstones. Common Bile Duct (C.B.D.): The common bile duct measures 3.6 mm. Pancreas: Normal size of the head, body and tail of the pancreas. There is normal echogenicity of the pancreas. There is no demonstrated pancreatic mass or cyst. Right Kidney: Normal size of the right kidney. The right kidney measures 11.4 cm x 5.1 cm x 4.7 cm. Normal renal cortex. The right cortex measures 1.4 cm. There is no demonstrated renal mass or cyst. There is no right hydronephrosis. US/Gallbladder IMPRESSION: Multiple hepatic cysts. The largest cyst measures 4.7 cm x 4.6 cm x 3.5 cm. Electronically Signed: Adan Morgan MD at 10:32 EST , Service support ,
== END 2021-05-27 23:59 | disposition short-term general hospital (02) ==
LOC: US 08:26
PROVIDERS: PCP Family Medicine; Referring Provider Surgery; Visit Provider Surgery
DX: K76.89 Other specified diseases of liver (principal); R10.13 Epigastric pain
CPT/HCPCS: 76705

== ENCOUNTER 2021-05-31 07:31 | Day surgery (SDC) | payer MEDICARE, OTHER, SELFPAY ==
[2021-05-31] VITALS (12 sets, daily range): BP systolic 99–155; BP diastolic 59–93; PULSE 62–70; RESP 16; TEMP 35.5–36.3; O2SAT 62–100; BMI 30.2
--- NOTE | 2021-05-31 07:46 | HP.PCM_ITS ---
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: No Is patient in pain?: No Allergies No Known Allergies Allergy (Verified 05/20/21 12:27) Medications allopurinol 300 mg tablet 1 tab PO DAILY MDD gout 12/12/19 [History Confirmed 05/20/21] atorvastatin 10 mg tablet 1 tab PO DAILY 12/12/19 [History Confirmed 05/20/21] oqwfhdsj-rmr-rhumd acid 300 mcg-lycopene 600 mcg-lutein 300 mcg tablet 1 tab PO DAILY 12/12/19 [History Confirmed 05/20/21] omeprazole 20 mg capsule,delayed release 1 tab PO DAILY 12/12/19 [History Confirmed 05/20/21] sildenafil 100 mg tablet 100 ea PO PRN PRN 12/12/19 [History Confirmed 05/20/21] hydrochlorothiazide 25 mg tablet 25 mg PO DAILY #90 tab 05/06/21 [Rx Confirmed 05/20/21] psyllium husk 0.52 gram capsule 2.08 g PO DAILY cap 05/20/21 [History Confirmed 05/20/21] tamsulosin 0.4 mg capsule ea PO 05/20/21 [History Confirmed 05/20/21] [facility] Medical History (Updated 05/20/21 @ 12:[address] Skip Landry MD) Acute appendicitis Acute respiratory failure with hypoxia (05/30/20) COVID-19 virus detected (05/30/20) Elevated d-dimer (05/30/20) Elevated PSA Essential (primary) hypertension GERD (gastroesophageal reflux disease) Gout Hiatal hernia Hyperlipidemia IBS (irritable bowel syndrome) Left foot drop (06/04/20) Neuropathy of left lower extremity Obesity Obstructive sleep apnea Pleural effusion (05/30/20) Pleural effusion on right Pneumonia due to COVID-19 virus (05/30/20) Thrombocytosis Varicose vein of leg Surgical History History of colonoscopy (2012) History of herniorrhaphy History of laparoscopic appendectomy (03/2020) History of Mohs micrographic surgery for skin cancer History of nasal septoplasty History of right inguinal hernia repair (2013) History of thoracotomy (09/24/20) Family History Sister Colon cancer Father Heart disease CAD (coronary artery disease) CABG Social History Smoking Status: Former smoker HPI HPI HPI: SUZETTE GOTTLIEB, is a 71 M who presents to the office today for surgical consultation regarding gastroesophageal reflux disease. The patient is referred by Dr Seng Willoughby and a written copy of my surgical consult recommendations will return to him. As of April 16, 2021 patient has a hemoglobin of 15.8 and hematocrit 46.6 with a platelet count of 285,000. BUN is 17 creatinine 1.13. PSA was elevated at that time at 7.86. An MRI was obtained suggesting a low probability of cancer. The patient a year ago had a laparoscopic appendectomy for acute appendicitis. He lost a total of 30 pounds in weight but recently has had a 10 pound rebound. He denies any bright red blood per rectum or melena. He does sometimes get gassy abdominal discomfort particularly with fatty foods. He has not recently had a gallbladder ultrasound. He has been on 10 to 15 years of proton pump inhibitor therapy. In addition he has a sister who had colon cancer. He has had a remote history himself of colon polyps but not with his most recent colonoscopy which was about 12 years ago. Patient also experienced Covid-05 June 2020 He has had a previous right pulmonary decortication for pleural effusion ROS General General: Yes weight change; No appetite, fatigue, colon cancer, breast cancer or weakness HEENT HEENT: No difficulty swallowing, eye injury, eye surgery, swollen glands or hoarseness Endo Endocrine: No thyroid disease, diabetes mellitus, thyroid cancer, Hair loss, heat intolerance or cold intolerance Musc Musculoskeletal: Yes back problems and gout; No arthritis, rheumatoid arthritis or joint pain Cardio Cardiovascular: Yes high blood pressure; No murmur, pacemaker, heart disease, atrial fibrillation, heart attack, heart stent, palpitations, shortness of breat with exertion or chest pain Psych Psychiatric: No depression, anxiety or hearing voices Resp Respiratory: Yes shortness of breath, Yes sleep apnea, No cough, No COPD, No asthma, No emphysema and No wheezing Gastro Gastrointestinal: Yes abdominal pain, No nausea or vomiting, No diarrhea, No constipation, No blood in stool, Yes acid reflux, No hemorrhoids, No ulcers, No gallbladder problem and No black,tarry stools Jorge Alberto Hematologic: No blood thinners, No blood disorders, No bleeding, No anemia and No blood clots Neuro Neurologic: No weakness Exam Const General: cooperative, healthy appearing and comfortable Nutritional Appearance: average body habitus Orientation: alert and awake [facility] Head: normal to inspection Eyes General: appearance normal, both eyes and all related structures Neck Neck: normal visual inspection Chest Chest palpation & inspection: normal inspection of the chest Resp Effort & Inspection: normal respiratory effort Auscultation: clear to auscultation bilaterally Cardio Rate: regular rate Rhythm: regular rhythm GI Palpation: soft and no hepatosplenomegaly Auscultation: normal bowel sounds Musc Cervical Spine: normal cervical lordosis Skin General: no rashes or lesions noted Neuro General: patient alert and patient awake Extrem General: no calf tenderness Psych Appearance: grossly normal Assessment and Plan Assessment and Plan (1) Hiatal hernia: Status: Acute (2) GERD (gastroesophageal reflux disease): Status: Chronic Qualifiers: Esophagitis presence: esophagitis presence not specified Qualified Code(s): K21.9 - Gastro-esophageal reflux disease without esophagitis (3) Family history of colon cancer: Status: Acute Orders: Orders: EGD Today K44.9, K21.9 Plan - Dr. Skip Landry MD: I recommended the patient a gallbladder ultrasound because of his gassy epigastric discomfort. The presence of gallstones would be important to know prior to any anticipated laparoscopic hiatal hernia repair I recommend the patient a combined esophagogastroduodenoscopy and colonoscopy with possible biopsy or polypectomy as indicated. Careful inspection for hiatal hernia and chronic reflux changes will be pursued. Careful inspection because of the family history of colon cancer will be pursued. I also recommended the patient an outpatient manometry examination of his esophagus. We will then have him return to the office to discuss the above results. He may be a candidate for a surgical reflux procedure in order to ameliorate his ongoing need for proton pump inhibitor therapy. He has had an opportunity to ask no questions answered. I very much appreciate the kind opportunity of assisting with the surgical care. Copy: Dr Seng Landry M.D., F.A.C.S. I have re-examined the patient. There are no clinical changes since date of exam.
[2021-05-31] MEDS: Lactated Ringers 1,000 ML 15 ML IV (08:04)
--- NOTE | 2021-05-31 08:30 | EGD_PTH ---
PATIENT: SUZETTE GOTTLIEB LOC: EN U#:[id number] AGE/SX: 71/M ROOM: RE05/31/[address]: Dr. Skip Landry MD : 1950 BED: DIS: 05/31/2021 SPEC #: [id number] RECD: 05/31/21 11:34 STATUS: LETY CORTEZ #: [id number] SANTOS: 05/31/21 08:[address]: Skip Landry DEPT: SURGICAL PATHOLOGY RECD BY: Soraya Sewell ENTERED: 05/31/21 12:38 SP TYPE: EGD BIOPSY OT DR: Dr. Seng Willoughby MD Tissues: A - Gastric mucous membrane B - Gastric fundus C - Esophagus, NOS D - Sigmoid colon biopsy Procedures: Special Stain Group II Surgery Specimen Level IV Alcian Blue/PAS (control) HEADER OPERATION: Colonoscopy, EGD (MOD) PRE-OP DIAGNOSIS: Hiatal hernia, GERD TISSUE SUBMITTED: A ? Antrum biopsy for H. pylori and path, B ? Fundic polyp biopsy, C ? Distal esophagus biopsy, D ? Distal sigmoid polyp MICROSCOPIC DIAGNOSIS A. Antrum, biopsy: Mild gastritis. See microscopic description and comment. B. Fundic polyp, biopsy: Consistent with fundic gland polyp. C. Distal esophagus, biopsy: Fragments of gastroesophageal mucosa with mild to moderate chronic inflammation. Intestinal metaplasia (goblet cell metaplasia) not identified. See comment. D. Distal sigmoid polyp, biopsy: Tubular adenoma. SJ:ricardo 06/03/2021 COMMENT A. The results of immunohistochemistry for Helicobacter pylori will be reported separately ([id number]). C. Alcian blue/PAS stain with matched control is used in the evaluation of the specimen. MICROSCOPIC DESCRIPTION Slides are reviewed. A. The specimen shows fragments of gastric mucosa with chronic inflammatory cell infiltrates in the lamina propria consisting of lymphocytes and plasma cells, consistent with mild chronic gastritis. GROSS DESCRIPTION A - Received in fixative is one container labeled with the patient's name and designated antrum biopsy. The specimen consists of one irregular fragment of light miller soft tissue that measures 0.3 x 0.3 x 0.1 cm. The specimen is totally submitted in one cassette. B - Received in fixative is one container labeled with the patient's name and designated fundic polyp biopsy. The specimen consists of one irregular fragment of light miller soft tissue that measures 0.4 x .3 x 0.1 cm. The specimen is totally submitted in one cassette. C - Received in fixative is one container labeled with the patient's name and designated distal esophagus biopsy. The specimen consists of multiple irregular fragments of light miller soft tissue that in aggregate measure 2 x .6 x 0.1 cm. The specimen is totally submitted in one cassette. D - Received in fixative is one container labeled with the patient's name and designated distal sigmoid polyp. The specimen consists of one irregular fragment of light miller soft tissue that measures 0.3 x 0.3 x 0.1 cm. The specimen is totally submitted in one cassette. / SJ:rg 05/31/2021 TC:3 CPT: 32434 x4, 98157
--- NOTE | 2021-05-31 08:30 | IMM_PTH ---
PATIENT: SUZETTE GOTTLIEB LOC: EN U#:[id number] AGE/SX: 71/M ROOM: RE05/31/[address]: Dr. Skip Landry MD : 1950 BED: DIS: 05/31/2021 SPEC #: [id number] RECD: 05/31/21 13:47 STATUS: LETY REJayna #: [id number] SANTOS: 05/31/21 08:[address]: Skip Landry DEPT: IMMUNOHISTOCHEMISTRY RECD BY: Elyssa Gillis ENTERED: 05/31/21 13:48 SP TYPE: IMMUNO OTHR DR: Dr. Seng Willoughby MD Tissues: A - Stomach, NOS Procedures: H Pylori (initial) PHYSICIAN & INSTITUTION [place] [id number] SPECIMEN INFORMATION: Tissue Source: A ? Antrum biopsy Clinical Info: Hiatal hernia, GERD Specimen Number: [id number] CPT code: 23065 METHODOLOGY: Deparaffinized sections of prefer/formalin-fixed tissue or PAP/DQ stained slides are incubated with monoclonal/polyclonal antibodies/oligonucleotide probes. Localization is made via biotin free immunoperoxidase method. Appropriate controls are performed and reacted as expected. Results on target cell population are indicated in the following table: RESULTS: ANTIBODY / CLONE RESULT Block A H Pylori (polyclonal) negative These tests were developed and their performance characteristics determined by [facility]. They may not have been cleared or approved by the [place]. Food and Drug Administration. The FDA has determined that such clearance or approval is not necessary. INTERPRETATION: A. Antrum biopsy: Negative for Helicobacter pylori organisms. GERALD:ricardo 06/03/2021
[2021-05-31] MEDS: Midazolam 5 MG/ML Syringe (08:50)
[2021-05-31] MEDS: Atropine Sulfate 1 MG/10 ML Syringe IV (09:07)
--- NOTE | 2021-05-31 09:24 | OP.EGD_ITS ---
Patient Name: Neeraj Palomino Procedure Date: 05/31/2021 8:35 AM Date of : 1950 Age: 71 Procedure: Upper GI endoscopy Indications: Esophageal reflux Providers: Skip Landry MD Medicines: Midazolam 3 mg IV, Meperidine 100 mg IV Complications: No immediate complications. Procedure: Pre-Anesthesia Assessment: - Prior to the procedure, a History and Physical was performed, and patient medications and allergies were reviewed. The patient's tolerance of previous anesthesia was also reviewed. The risks and benefits of the procedure and the sedation options and risks were discussed with the patient. All questions were answered, and informed consent was obtained. Prior Anticoagulants: The patient has taken no previous anticoagulant or antiplatelet agents. ASA Grade Assessment: II - A patient with mild systemic disease. After reviewing the risks and benefits, the patient was deemed in satisfactory condition to undergo the procedure. After obtaining informed consent, the endoscope was passed under direct vision. Throughout the procedure, the patient's blood pressure, pulse, and oxygen saturations were monitored continuously. The Endoscope was introduced through the mouth, and advanced to the second part of duodenum. The upper GI endoscopy was accomplished without difficulty. The patient tolerated the procedure well. Moderate Sedation: Moderate (conscious) sedation was personally administered by the endoscopist. The following parameters were monitored: oxygen saturation, heart rate, blood pressure, and response to care. Total physician intraservice time was 15 minutes. Scope In: 8:52:13 AM Scope Out: 9:00:23 AM Total Procedure Duration Time 0 hours 8 minutes 10 seconds Findings: A medium-sized hiatal hernia was present. The Z-line was irregular and was found 40 cm from the incisors. There were esophageal mucosal changes suspicious for short-segment Verdin's esophagus present in the lower third of the esophagus. The maximum longitudinal extent of these mucosal changes was 3 cm in length. Mucosa was biopsied with a cold forceps for histology in 4 quadrants in the lower third of the esophagus. Multiple pedunculated and sessile polyps with no bleeding and no stigmata of recent bleeding were found in the gastric fundus. The polyp was removed with a cold biopsy forceps. Resection and retrieval were complete. Diffuse mildly erythematous mucosa without bleeding was found in the gastric antrum. Biopsies were taken with a cold forceps for histology. The examined duodenum was normal. Impression: - Medium-sized hiatal hernia. - Z-line irregular, 40 cm from the incisors. - Esophageal mucosal changes suspicious for short-segment Verdin's esophagus. Biopsied. - Multiple gastric polyps. Resected and retrieved. - Erythematous mucosa in the antrum. Biopsied. - Normal examined duodenum. Recommendation: - Discharge patient to home. - Resume previous diet. - Continue present medications. - Return to my office after studies are complete. Plan manometry and consider reflux surgery Procedure Code(s): --- Professional --- 86079, Esophagogastroduodenoscopy, flexible, transoral; with biopsy, single or multiple 51484, 59, Moderate sedation services provided by the same physician or other qualified health urgent care nurse practitioner performing the diagnostic or therapeutic service that the sedation supports, requiring the presence of an independent trained observer to assist in the monitoring of the patient's level of consciousness and physiological status; initial 15 minutes of intraservice time, patient age 5 years or older Diagnosis Code(s): --- Professional --- K44.9, Diaphragmatic hernia without obstruction or gangrene K22.8, Other specified diseases of esophagus K31.7, Polyp of stomach and duodenum K31.89, Other diseases of stomach and duodenum K21.9, Gastro-esophageal reflux disease without esophagitis CPT copyright 2017 [employer]. All rights reserved. The codes documented in this report are preliminary and upon wool fleece grader review may be revised to meet current compliance requirements. Skip Landry MD 05/31/2021 9:24:08 AM This report has been signed electronically. Number of Addenda: 0 Note Initiated On: 05/31/2021 8:35 AM
--- NOTE | 2021-05-31 09:25 | OP.CCLET_ITS ---
05/31/2021 Seng Willoughby [address] [place] [address] Re : Upper GI endoscopy procedure for Neeraj Palomino Dear Dr. Willoughby This procedure was performed on Monday, May 31, 2021. My impressions and recommendations are as follows: Impressions : - Medium-sized hiatal hernia. - Z-line irregular, 40 cm from the incisors. - Esophageal mucosal changes suspicious for short-segment Verdin's esophagus. Biopsied. - Multiple gastric polyps. Resected and retrieved. - Erythematous mucosa in the antrum. Biopsied. - Normal examined duodenum. Recommendations : - Discharge patient to home. - Resume previous diet. - Continue present medications. - Return to my office after studies are complete. Plan manometry and consider reflux surgery My findings are described in the full procedure note, which is enclosed. If I can be of further assistance, please feel free to contact me at Doctor phone number(s): Work: . Sincerely, Skip Landry MD 05/31/2021 9:24:08 AM This report has been signed electronically.
--- NOTE | 2021-05-31 09:30 | OP.COLON_ITS ---
Patient Name: Neeraj Palomino Procedure Date: 05/31/2021 9:02 AM Date of : 1950 Age: 71 Procedure: Colonoscopy Indications: Screening for colorectal malignant neoplasm, Screening in patient at increased risk: Family history of 1st-degree relative with colorectal cancer Providers: Skip Landry MD Medicines: Midazolam 0.5 mg IV, Atropine 0.2 mg IV Patient Profile: Last Colonoscopy: more than 10 years ago. Complications: No immediate complications. Procedure: Pre-Anesthesia Assessment: - Prior to the procedure, a History and Physical was performed, and patient medications and allergies were reviewed. The patient's tolerance of previous anesthesia was also reviewed. The risks and benefits of the procedure and the sedation options and risks were discussed with the patient. All questions were answered, and informed consent was obtained. Prior Anticoagulants: The patient has taken no previous anticoagulant or antiplatelet agents. ASA Grade Assessment: II - A patient with mild systemic disease. After reviewing the risks and benefits, the patient was deemed in satisfactory condition to undergo the procedure. After I obtained informed consent, the scope was passed under direct vision. Throughout the procedure, the patient's blood pressure, pulse, and oxygen saturations were monitored continuously. The pediatric colonoscope was introduced through the anus and advanced to the cecum, identified by appendiceal orifice and ileocecal valve. The colonoscopy was performed without difficulty. The patient tolerated the procedure well. The quality of the bowel preparation was good. The ileocecal valve and the appendiceal orifice were photographed. Moderate Sedation: Moderate (conscious) sedation was personally administered by the endoscopist. The following parameters were monitored: oxygen saturation, heart rate, blood pressure, and response to care. Total physician intraservice time was 15 minutes. Scope In: 9:03:55 AM Scope Withdrawal Time 0 hours 7 minutes 11 seconds Scope Out: 9:17:41 AM Total Procedure Duration Time 0 hours 13 minutes 46 seconds Findings: The digital rectal exam findings include non-thrombosed internal hemorrhoids, internal hemorrhoids that prolapse with straining, but spontaneously regress to the resting position (Grade II) and enlarged prostate. A 6 mm polyp was found in the distal sigmoid colon. The polyp was sessile. The polyp was removed with a hot snare. Resection and retrieval were complete. A few diverticula were found in the sigmoid colon. The exam was otherwise without abnormality. Impression: - Non-thrombosed internal hemorrhoids, internal hemorrhoids that prolapse with straining, but spontaneously regress to the resting position (Grade II) and enlarged prostate found on digital rectal exam. - One 6 mm polyp in the distal sigmoid colon, removed with a hot snare. Resected and retrieved. - Diverticulosis in the sigmoid colon. - The examination was otherwise normal. Recommendation: - Discharge patient to home. - Resume previous diet. - Continue present medications. - Repeat colonoscopy in 5 years for surveillance based on pathology results. Procedure Code(s): --- Professional --- 64220, Colonoscopy, flexible; with removal of tumor(s), polyp(s), or other lesion(s) by snare technique 07675, 59, Moderate sedation services provided by the same physician or other qualified health critical care physician assistant performing the diagnostic or therapeutic service that the sedation supports, requiring the presence of an independent trained observer to assist in the monitoring of the patient's level of consciousness and physiological status; initial 15 minutes of intraservice time, patient age 5 years or older Diagnosis Code(s): --- Professional --- Z12.11, Encounter for screening for malignant neoplasm of colon Z80.0, Family history of malignant neoplasm of digestive organs D12.5, Benign neoplasm of sigmoid colon K64.1, Second degree hemorrhoids N40.0, Benign prostatic hyperplasia without lower urinary tract symptoms K57.30, Diverticulosis of large intestine without perforation or abscess without bleeding CPT copyright 2017 [employer]. All rights reserved. The codes documented in this report are preliminary and upon manager technical training review may be revised to meet current compliance requirements. Skip Landry MD 05/31/2021 9:29:59 AM This report has been signed electronically. Number of Addenda: 0 Note Initiated On: 05/31/2021 9:02 AM
--- NOTE | 2021-05-31 09:31 | OP.CCLET_ITS ---
05/31/2021 Seng Willoughby [address] [place] [address] Re : Colonoscopy procedure for Neeraj Palomino Dear Dr. Willoughby This procedure was performed on Monday, May 31, 2021. My impressions and recommendations are as follows: Impressions : - Non-thrombosed internal hemorrhoids, internal hemorrhoids that prolapse with straining, but spontaneously regress to the resting position (Grade II) and enlarged prostate found on digital rectal exam. - One 6 mm polyp in the distal sigmoid colon, removed with a hot snare. Resected and retrieved. - Diverticulosis in the sigmoid colon. - The examination was otherwise normal. Recommendations : - Discharge patient to home. - Resume previous diet. - Continue present medications. - Repeat colonoscopy in 5 years for surveillance based on pathology results. My findings are described in the full procedure note, which is enclosed. If I can be of further assistance, please feel free to contact me at Doctor phone number(s): Work: . Sincerely, Skip Landry MD 05/31/2021 9:29:59 AM This report has been signed electronically.
== END 2021-05-31 23:59 | disposition home or self-care (01) ==
LOC: EN 07:32 → AC 07:33
PROVIDERS: PCP Family Medicine; Referring Provider Family Medicine; Visit Provider Surgery
PROC: 0DJD8ZZ Inspection of Lower Intestinal Tract, Via Natural or Artificial Opening Endoscopic (ICD-10-PCS; CPT 45378; principal; 2021-05-31 08:25)
DX: Z12.11 Encounter for screening for malignant neoplasm of colon (principal); D12.5 Benign neoplasm of sigmoid colon; K64.1 Second degree hemorrhoids; K57.30 Diverticulosis of large intestine without perforation or abscess without bleeding; N40.0 Benign prostatic hyperplasia without lower urinary tract symptoms; K21.9 Gastro-esophageal reflux disease without esophagitis; K29.70 Gastritis, unspecified, without bleeding; K44.9 Diaphragmatic hernia without obstruction or gangrene; K22.89 Other specified disease of esophagus; K31.7 Polyp of stomach and duodenum; E78.5 Hyperlipidemia, unspecified; I10 Essential (primary) hypertension; E66.9 Obesity, unspecified; Z68.30 Body mass index [BMI] 30.0-30.9, adult; Z79.899 Other long term (current) drug therapy; Z86.010 Personal history of colon polyps; Z86.16 Personal history of COVID-19; Z87.891 Personal history of nicotine dependence; Z80.0 Family history of malignant neoplasm of digestive organs
CPT/HCPCS: 45385; 43239; 88305; 88313; 88342; 99152; 99153; J7120

== ENCOUNTER → 2021-06-13 07:27 | Day surgery (SDC) | payer MEDICARE, OTHER, SELFPAY ==
[2021-06-13] MEDS: Lidocaine Jelly 2% 20 ML Syringe (URO-JET) 1 APPLIC (07:50)
[2021-06-13 08:04] VITALS: BP 131/82; PULSE 71; RESP 18; TEMP 36.1; O2SAT 98
== END ==
PROVIDERS: PCP Family Medicine; Referring Provider Family Medicine; Visit Provider Surgery
PROC: F00ZJWZ Instrumental Swallowing and Oral Function Assessment using Swallowing Equipment (ICD-10-PCS; CPT 43235; principal; 2021-06-13 07:25)
DX: K21.9 Gastro-esophageal reflux disease without esophagitis (principal)

== ENCOUNTER 2021-06-19 08:19 | Outpatient (CLI) | payer MEDICARE, OTHER, SELFPAY ==
--- NOTE | 2021-06-19 08:21 | RAD_ITS ---
STUDY: X-RAY - ESOPHAGUS (BARIUM SWALLOW) WITH FLUOROSCOPY and air contra upper GI series REASON FOR EXAM: Male, 71 years old. K44.9 - Diaphragmatic hernia without obstruction or gangrene TECHNIQUE: 10 view(s) of the esophagus were obtained following swallowing of barium. FLUOROSCOPY TIME (if supplied): (50 seconds) minutes/seconds COMPARISON: None. FINDINGS: There is no demonstrated esophageal foreign body. There is no demonstrated stricture or mucosal abnormality. Normal gastroesophageal junction, without a demonstrated hiatal hernia. Imaging of the stomach and duodenum was obtained. No evidence of ulceration. No mass lesion is present. Normal visualized aortic arch and descending thoracic aorta. Normal visualized pulmonary parenchyma. Normal visualized osseous structures of the thorax. RAD/Upper GI w/BA Swallow IMPRESSION: Unremarkable examination of the esophagus and air-contrast upper GI series. Electronically Signed: Adan Morgan MD at 14:30 EST ,
== END 2021-06-19 23:59 | disposition short-term general hospital (02) ==
LOC: RAD 08:20
PROVIDERS: PCP Family Medicine; Referring Provider Surgery; Visit Provider Surgery
DX: K44.9 Diaphragmatic hernia without obstruction or gangrene (principal); K22.9 Disease of esophagus, unspecified
CPT/HCPCS: 74246

== ENCOUNTER 2021-07-29 12:23 | Inpatient (IN) | payer MEDICARE, OTHER, SELFPAY ==
--- NOTE | 2021-07-22 13:56 | EKG12_ITS ---
Test Reason : PRE OP Blood Pressure : / mmHG Vent. Rate : 079 BPM Atrial Rate : 079 BPM P-R Int : 154 ms QRS Dur : 084 ms QT Int : 414 ms P-R-T Axes : 052 027 058 degrees QTc Int : 474 ms Normal sinus rhythm Normal ECG Confirmed by ENOC KAYE, LIZZY ([id number]), loan expeditor YUNIOR MANNING ([id number]) on 07/23/2021 10:09:58 AM Referred By: Skip Landry Confirmed By:LIZZY STUBBS MD
[2021-07-22 15:02] LABS: Hematocrit 44.1 % (40-54); Hemoglobin 14.9 g/dL (13.0-16.5); Mean Corp Hgb Conc 33.8 g/dL (32-36); Mean Corpuscular Volume 88.7 fL (80-94); Mean Platelet Vol. 8.4 fl (6.2-12.0); Platelet Count 239 K/mm3 (150-450); RBC Distribution Width CV 13.5 % (11.6-14.6); RBC Distribution Width SD 43.4 fl (35.1-43.9); Red Blood Count 4.97 M/mm3 (4.6-6.2); White Blood Count 6.2 K/mm3 (4.4-11.0)
[2021-07-22 15:29] LABS: Anion Gap 2 (5-15); BUN 16 mg/dL (7-18); BUN/Creat Ratio 12.5 RATIO (10-20); Chloride 105 mmol/L (98-107); Creatinine, Serum 1.28 mg/dL (0.70-1.30); EST Glomerular Filtration Rate 59 mL/min (>60); Est Glom Filt Rate - Afr Amer 71 mL/min (>60); Glucose 117 mg/dL (74-106); Potassium 3.9 mmol/L (3.5-5.1); Sodium Level 139 mmol/L (136-145)
[2021-07-29] VITALS (16 sets, daily range): BP systolic 105–160; BP diastolic 65–97; PULSE 56–92; RESP 15–18; TEMP 36.3–37.1; O2SAT 95–100; BMI 32.0
--- NOTE | 2021-07-29 06:19 | HP.PCM_ITS ---
History and Physical Date of Admission: 07/29/21 Intake Intake Visit Reasons: Discuss results Chief Complaint: discuss results Tester Compressed Gases Required: No Is patient in pain?: No Allergies No Known Allergies Allergy (Verified 07/02/21 14:41) Medications allopurinol 300 mg tablet 1 tab PO DAILY MDD gout 12/12/19 [History Confirmed 07/02/21] atorvastatin 10 mg tablet 1 tab PO DAILY 12/12/19 [History Confirmed 07/02/21] sakmtlii-esy-prami acid 300 mcg-lycopene 600 mcg-lutein 300 mcg tablet 1 tab PO DAILY 12/12/19 [History Confirmed 07/02/21] omeprazole 20 mg capsule,delayed release 1 tab PO DAILY 12/12/19 [History Confirmed 07/02/21] sildenafil 100 mg tablet 100 ea PO PRN PRN 12/12/19 [History Confirmed 07/02/21] hydrochlorothiazide 25 mg tablet 25 mg PO DAILY #90 tab 05/06/21 [Rx Confirmed 07/02/21] psyllium husk 0.52 gram capsule 2.08 g PO DAILY cap 05/20/21 [History Confirmed 07/02/21] tamsulosin 0.4 mg capsule ea PO 05/20/21 [History Confirmed 07/02/21] PFSH Medical History Abnormality of esophagus Acute appendicitis Acute respiratory failure with hypoxia (05/30/20) COVID-19 virus detected (05/30/20) Elevated d-dimer (05/30/20) Elevated PSA Essential (primary) hypertension GERD (gastroesophageal reflux disease) Gout Hiatal hernia Hyperlipidemia IBS (irritable bowel syndrome) Left foot drop (06/04/20) Neuropathy of left lower extremity Obesity Obstructive sleep apnea Pleural effusion (05/30/20) Pleural effusion on right Pneumonia due to COVID-19 virus (05/30/20) Thrombocytosis Varicose vein of leg Surgical History History of colonoscopy (2012) History of herniorrhaphy History of laparoscopic appendectomy (03/2020) History of Mohs micrographic surgery for skin cancer History of nasal septoplasty History of right inguinal hernia repair (2013) History of thoracotomy (09/24/20) Family History Sister Colon cancer Father Heart disease CAD (coronary artery disease) CABG Social History Smoking Status: Former smoker HPI HPI HPI: SUZETTE GOTTLIEB, is a 71 M who presents to the office today for ongoing surgical consultation regarding chronic reflux disease and esophageal motility concerns. His upper endoscopy of May 31 demonstrated a medium size hiatal hernia with multiple gastric polyps erythema of the antrum. Pathology showed mild gastritis and fundic gland polyps and mild to moderate chronic ref lux irritation of the distal esophagus. H. pylori was negative. The patient had esophageal manometry that was felt to be abnormal with weak and ineffective swallows. However this does not correlate with his clinical swallowing ability. That is why the barium swallow was obtained and was interpreted as normal. The patient however definitively does have a medium size hiatal hernia and active re flux disease despite being on chronic proton pump inhibitor treatment. After patient's most recent visit I asked him to get a barium swallow. That was obtained on June 19, 2021 and was felt to be unremarkable. STUDY: X-RAY - ESOPHAGUS (BARIUM SWALLOW) WITH FLUOROSCOPY and air contra upper GI series REASON FOR EXAM: Male, 71 years old. K44.9 - Diaphragmatic hernia without obstruction or gangrene TECHNIQUE: 10 view(s) of the esophagus were obtained following swallowing of barium. FLUOROSCOPY TIME (if supplied): (50 seconds) minutes/seconds COMPARISON: None. FINDINGS: There is no demonstrated esophageal foreign body. There is no demonstrated stricture or mucosal abnormality. Normal gastroesophageal junction, without a demonstrated hiatal hernia. Imaging of the stomach and duodenum was obtained. No evidence of ulceration. No mass lesion is present. Normal visualized aortic arch and descending thoracic aorta. Normal visualized pulmonary parenchyma. Normal visualized osseous structures of the thorax. RAD/Upper GI w/BA Swallow IMPRESSION: Unremarkable examination of the esophagus and air-contrast upper GI series. Electronically Signed: Adan Morgan MD at 14:30 EST , Visit Reasons: F/U C-Scope Chief Complaint: discuss testing Tester Compressed Gases Required: No Is patient in pain?: No Allergies No Known Allergies Allergy (Verified 06/17/21 13:52) Medications allopurinol 300 mg tablet 1 tab PO DAILY MDD gout 12/12/19 [History Confirmed 06/17/21] atorvastatin 10 mg tablet 1 tab PO DAILY 12/12/19 [History Confirmed 06/17/21] uysuqcdx-usr-qwemy acid 300 mcg-lycopene 600 mcg-lutein 300 mcg tablet 1 tab PO DAILY 12/12/19 [History Confirmed 06/17/21] omeprazole 20 mg capsule,delayed release 1 tab PO DAILY 12/12/19 [History Confirmed 06/17/21] sildenafil 100 mg tablet 100 ea PO PRN PRN 12/12/19 [History Confirmed 06/17/21] hydrochlorothiazide 25 mg tablet 25 mg PO DAILY #90 tab 05/06/21 [Rx Confirmed 06/17/21] psyllium husk 0.52 gram capsule 2.08 g PO DAILY cap 05/20/21 [History Confirmed 06/17/21] tamsulosin 0.4 mg capsule ea PO 05/20/21 [History Confirmed 06/17/21] [facility] Medical History (Updated 06/17/21 @ 14:02 by Ranjana Pickard) Abnormality of esophagus Acute appendicitis Acute respiratory failure with hypoxia (05/30/20) COVID-19 virus detected (05/30/20) Elevated d-dimer (05/30/20) Elevated PSA Essential (primary) hypertension GERD (gastroesophageal reflux disease) Gout Hiatal hernia Hyperlipidemia IBS (irritable bowel syndrome) Left foot drop (06/04/20) Neuropathy of left lower extremity Obesity Obstructive sleep apnea Pleural effusion (05/30/20) Pleural effusion on right Pneumonia due to COVID-19 virus (05/30/20) Thrombocytosis Varicose vein of leg Surgical History History of colonoscopy (2012) History of herniorrhaphy History of laparoscopic appendectomy (03/2020) History of Mohs micrographic surgery for skin cancer History of nasal septoplasty History of right inguinal hernia repair (2013) History of thoracotomy (09/24/20) Family History Sister Colon cancer Father Heart disease CAD (coronary artery disease) CABG Social History Smoking Status: Former smoker HPI HPI HPI: SUZETTE GOTTLIEB, is a 71 M who presents to the office today for surgical follow-up of gastroesophageal reflux disease and endoscopic procedures. On May 31, 2019 to an upper endoscopy demonstrated a medium size hiatal hernia multiple gastric polyps erythema of the antrum. Pathology was consistent with mild gastritis. Benign fundic gland polyps. Gastroesophageal reflux of the distal esophagus with mild to moderate chronic inflammation. Verdin's was not identified. A colonoscopy on the same day demonstrated internal and external hemorrhoids. Some prostatic enlargement. A 6 mm polyp in the distal sigmoid. Diverticulosis. The polyp was consistent with a tubular adenoma. Follow-up colonoscopy in 5 years recommended. In addition to his other medications he is maintained on omeprazole therapy. He has had a recent gallbladder ultrasound which was negative for gallstones On June 13, 2021 he had esophageal manometry. This was felt to be abnormal. The distal contracture integral was low at 493.4. Percentage of week swallows 30% percentage of ineffective swallows 30% fragmented swallows 10% percent intact was 60%. There was felt to be incomplete bolus clearance and every swallow. Swallowing pressures were weak and ineffective in several swallows. My previous notes reflect the following Visit Reasons: Gerd/Upper Scope Chief Complaint: EGD/ c-scope Tester Compressed Gases Required: No Is patient in pain?: No Allergies No Known Allergies Allergy (Verified 05/20/21 12:27) Medications allopurinol 300 mg tablet 1 tab PO DAILY MDD gout 12/12/19 [History Confirmed 05/20/21] atorvastatin 10 mg tablet 1 tab PO DAILY 12/12/19 [History Confirmed 05/20/21] dwpjnako-wce-dwgsf acid 300 mcg-lycopene 600 mcg-lutein 300 mcg tablet 1 tab PO DAILY 12/12/19 [History Confirmed 05/20/21] omeprazole 20 mg capsule,delayed release 1 tab PO DAILY 12/12/19 [History Confirmed 05/20/21] sildenafil 100 mg tablet 100 ea PO PRN PRN 12/12/19 [History Confirmed 05/20/21] hydrochlorothiazide 25 mg tablet 25 mg PO DAILY #90 tab 05/06/21 [Rx Confirmed 05/20/21] psyllium husk 0.52 gram capsule 2.08 g PO DAILY cap 05/20/21 [History Confirmed 05/20/21] tamsulosin 0.4 mg capsule ea PO 05/20/21 [History Confirmed 05/20/21] [facility] Medical History (Updated 05/20/21 @ 12:[address] Skip Landry MD) Acute appendicitis Acute respiratory failure with hypoxia (05/30/20) COVID-19 virus detected (05/30/20) Elevated d-dimer (05/30/20) Elevated PSA Essential (primary) hypertension GERD (gastroesophageal reflux disease) Gout Hiatal hernia Hyperlipidemia IBS (irritable bowel syndrome) Left foot drop (06/04/20) Neuropathy of left lower extremity Obesity Obstructive sleep apnea Pleural effusion (05/30/20) Pleural effusion on right Pneumonia due to COVID-19 virus (05/30/20) Thrombocytosis Varicose vein of leg Surgical History History of colonoscopy (2012) History of herniorrhaphy History of laparoscopic appendectomy (03/2020) History of Mohs micrographic surgery for skin cancer History of nasal septoplasty History of right inguinal hernia repair (2013) History of thoracotomy (09/24/20) Family History Sister Colon cancer Father Heart disease CAD (coronary artery disease) CABG Social History Smoking Status: Former smoker HPI HPI HPI: SUZETTE GOTTLIEB, is a 71 M who presents to the office today for surgical consultation regarding gastroesophageal reflux disease. The patient is referred by Dr Seng Willoughby and a written copy of my surgical consult recommendations will return to him. As of April 16, 2021 patient has a hemoglobin of 15.8 and hematocrit 46.6 with a platelet count of 285,000. BUN is 17 creatinine 1.13. PSA was elevated at that time at 7.86. An MRI was obtained suggesting a low probability of cancer. The patient a year ago had a laparoscopic appendectomy for acute appendicitis. He lost a total of 30 pounds in weight but recently has had a 10 pound rebound. He denies any bright red blood per rectum or melena. He does sometimes get gassy abdominal discomfort particularly with fatty foods. He has not recently had a gallbladder ultrasound. He has been on 10 to 15 years of proton pump inhibitor therapy. In addition he has a sister who had colon cancer. He has had a remote history himself of colon polyps but not with his most recent colonoscopy which was about 12 years ago. Patient also experienced Covid-05 June 2020 He has had a previous right pulmonary decortication for pleural effusion ROS General General: Yes weight change; No appetite, fatigue, colon cancer, breast cancer or weakness HEENT HEENT: No difficulty swallowing, eye injury, eye surgery, swollen glands or hoarseness Endo Endocrine: No thyroid disease, diabetes mellitus, thyroid cancer, Hair loss, heat intolerance or cold intolerance Musc Musculoskeletal: Yes back problems and gout; No arthritis, rheumatoid arthritis or joint pain Cardio Cardiovascular: Yes high blood pressure; No murmur, pacemaker, heart disease, atrial fibrillation, heart attack, heart stent, palpitations, shortness of breat with exertion or chest pain Psych Psychiatric: No depression, anxiety or hearing voices Resp Respiratory: Yes shortness of breath, Yes sleep apnea, No cough, No COPD, No asthma, No emphysema and No wheezing Gastro Gastrointestinal: Yes abdominal pain, No nausea or vomiting, No diarrhea, No constipation, No blood in stool, Yes acid reflux, No hemorrhoids, No ulcers, No gallbladder problem and No black,tarry stools Jorge Alberto Hematologic: No blood thinners, No blood disorders, No bleeding, No anemia and No blood clots Neuro Neurologic: No weakness Exam Const General: cooperative, healthy appearing and comfortable Nutritional Appearance: average body habitus Orientation: alert and awake [facility] Head: normal to inspection Eyes General: appearance normal, both eyes and all related structures Neck Neck: normal visual inspection Chest Chest palpation & inspection: normal inspection of the chest Resp Effort & Inspection: normal respiratory effort Auscultation: clear to auscultation bilaterally Cardio Rate: regular rate Rhythm: regular rhythm GI Palpation: soft and no hepatosplenomegaly Auscultation: normal bowel sounds Musc Cervical Spine: normal cervical lordosis Skin General: no rashes or lesions noted Neuro General: patient alert and patient awake Extrem General: no calf tenderness Psych Appearance: grossly normal Assessment and Plan Assessment and Plan (1) Hiatal hernia: Status: Acute (2) GERD (gastroesophageal reflux disease): Status: Chronic Qualifiers: Esophagitis presence: esophagitis presence not specified Qualified Code(s): K21.9 - Gastro-esophageal reflux disease without esophagitis (3) Family history of colon cancer: Status: Acute Orders: Orders: EGD Today K44.9, K21.9 Plan - Dr. Skip Landry MD: I recommended the patient a gallbladder ultrasound because of his gassy epigastric discomfort. The presence of gallstones would be important to know prior to any anticipated laparoscopic hiatal hernia repair I recommend the patient a combined esophagogastroduodenoscopy and colonoscopy with possible biopsy or polypectomy as indicated. Careful inspection for hiatal hernia and chronic reflux changes will be pursued. Careful inspection because of the family history of colon cancer will be pursued. I also recommended the patient an outpatient manometry examination of his esophagus. We will then have him return to the office to discuss the above results. He may be a candidate for a surgical reflux procedure in order to ameliorate his ongoing need for proton pump inhibitor therapy. He has had an opportunity to ask no questions answered. I very much appreciate the kind opportunity of assisting with the surgical care. Copy: Dr Seng Landry M.D., F.A.C.S. Assessment and Plan Assessment and Plan (1) Hiatal hernia: Status: Acute Orders: Orders: Upper GI w/BA Swallow Today K44.9 Plan - Dr. Skip Landry MD: I had a discussion with the patient and he denies any symptoms which would sound like esophageal motility problems. He is able to swallow foods and does not have to prelubricate with liquids or post justice with liquids. He does not eat much bread but the bread that he does eat advances without difficulty. Solid there foods like steak also passed. He does not seem to describe any symptoms that would correlate well with his esophageal manometry. He has been on omeprazole for 20 years. He is interested in pursuing an option that would allow him to cease this medication. I did spend time with him today discussing laparoscopic repair of the diaphragm with either then a laparoscopic toupet procedure or laparoscopic Sonal fundoplication as a means of stopping reflux. I have encouraged him that both of these methods are very efficient at stopping reflux symptoms however the esophageal dysmotility at least on the manometry study does have concern. I suggest to him that we get a barium upper GI. If that demonstrates easy a normal and free flow of the barium then I would propose for him a laparoscopic toupet procedure. If on the other hand there is a suggestion that the barium contrast column does not flow well or easily then perhaps ongoing medical therapy might be a better option. He has had an opportunity to ask and have questions answered. We will not schedule further appointments until we have the results of the contrast study. I appreciate the ongoing opportunity of assisting with the surgical care Copy: Dr Seng Landry M.D., F.A.C.S. Assessment and Plan Assessment and Plan (1) GERD (gastroesophageal reflux disease): Status: Chronic Qualifiers: Esophagitis presence: esophagitis presence not specified Qualified Code(s): K21.9 - Gastro-esophageal reflux disease without esophagitis (2) Hiatal hernia: Status: Acute Plan - Dr. Skip Landry MD: The patient presents today to discuss treatment options of a hiatal hernia gastroesophageal reflux disease esophageal dysmotility based upon manometry but an unremarkable barium swallow. Today was a [id number]-[id number] consultative appointment. The patient has a medium size hiatal hernia with active reflux disease despite long-term ongoing treatment with omeprazole proton pump inhibitor. Esophageal manometry question motility but a barium swallow demonstrated a normal diameter and general appearance of the esophagus. Additionally the patient does not demonstrate symptoms while eating of problems with propagating food. With all of that in mind I have offered him a laparoscopic toupet procedure repair of his diaphragmatic hernia. Would very much like to assist with a more definitive treatment of his ongoing active reflux disease. Hopefully then in the postoperative period we will be able to get him off his chronic PPIs even if that means converting to an H2 felice. The patient is aware that I am selecting a partial wrap and that we will start very carefully postoperatively with a clear liquid diet. He has been provided dietary and activity instruction sheets at this time. He has had an opportunity to ask and have questions answered. At this point he is interested in pursuing the surgical intervention. We will schedule and proceed at his discretion. He has had a previous history of appendicitis. He has also had a previous history of pleural effusions. Skip Landry M.D., F.A.C.S. I have re-examined the patient. There are no clinical changes since date of exam. Skip Landry M.D., F.Héctor.C.S.
[2021-07-29] MEDS: Lactated Ringers 1,000 ML 15 ML IV (07:04)
--- NOTE | 2021-07-29 07:07 | DCINST_ITS ---
Discharge Instructions Follow Up Care Test Results: Please refer to the previously provided written discharge inst ructions regarding diet and dietary advancement as well as physical activity and wound care. Please call [phone] for office appointment in approximately 10 days Discharge Plan Admission Attending Provider: Skip Landry Primary Care Provider: Seng Willoughby Discharge Orders/Prescriptions Prescriptions: No Action omeprazole 20 mg capsule,delayed release(DR/EC) 1 tab PO DAILY RF: 0 atorvastatin 10 mg tablet 1 tab PO DAILY RF: 0 allopurinol 300 mg tablet 1 tab PO DAILY MDD gout RF: 0 sildenafil 100 mg tablet 100 ea PO PRN PRN (Reason: ED) RF: 0 Centrum Silver Men 300-600-300 mcg tablet 1 tab PO DAILY RF: 0 tamsulosin 0.4 mg capsule 0.4 mg PO DAILY RF: 0 psyllium husk [Metamucil] 0.52 gram capsule 2.08 g PO BID RF: 0 hydrochlorothiazide 25 mg tablet 25 mg PO DAILY Qty: 90 RF: 3
[2021-07-29] MEDS: Cefazolin 2 GM in 0.9% Normal Saline 100 ML IV (07:22)
[2021-07-29] MEDS: Lidocaine 1% (5 ml sdv) 5 ML Vial ×2 (07:53→12:01)
[2021-07-29] MEDS: Bupivacaine Mpf 0.5% 30 ML VIAL ×2 (07:53→12:01)
[2021-07-29 09:13] LABS: Hematocrit 38.8 % (40-54); Hemoglobin 13.5 g/dL (13.0-16.5)
[2021-07-29] MEDS: BUPIVACAINE LIPOSOME/PF 20 ML VIAL OPERA.SITE (12:01)
--- NOTE | 2021-07-29 12:06 | PCM.OPRPT ---
Problems Associated Problem List Diagnoses (1) GERD (gastroesophageal reflux disease): (2) Hiatal hernia: (3) Splenic hemorrhage: Report of Operation Date of Procedure: 07/29/21 Pre-Operative Diagnosis: Intractable gastroesophageal reflux disease with proton pump inhibitor dependence and Verdin's esophagus and hiatal hernia Post-Operative Diagnosis: The same plus bleeding from short gastric adjacent to the spleen. Surgery/Procedure Performed:: Laparoscopic repair hiatal hernia with laparoscopic toupet procedure and hand assisted control of superior pole splenic bleeding. Bilateral bilateral subcostal transabdominal plane block. Esophagogastroduodenoscopy. Description of Surgical Findings:: Timeout informed consent was obtained. 71-year-old gentleman was taken to the operating placed on the table underwent general endotracheal intubation esthesia. Ancef 2 g were given intravenously. He was on a beanbag. He was placed in low lithotomy position. The abdomen sterilely prepped and draped. [place]an draping was used as well. Superior in the right upper mid abdomen used a 5 mm Visiport technology to gain access to the abdomen. Throughout the procedure combination of local anesthetic was used. 0.5% Marcaine and 1% lidocaine and at the completion 20 cc of Exparel was mixed so as to perform a bilateral transabdominal plane block. Skin sites were preanesthetized. A 5 mm trocar again uncomplicated access the abdomen was inflated with CO2 to a pressure of 10 mmHg pressure. 10 mm trocar was placed left and superior to the umbilicus and 2 more 5 mm trochars in the left subcostal area. An additional 5 mm site was placed in the epigastric area and a Promise retractor was placed nicely elevated the left lobe of the liver. Significant amount of fibrofatty tissue was noted at the EG junction. Dissection was initiated by identifying the right tomy of the diaphragm and the peritoneum at this point was incised with harmonic scalpel. Rather dense and adherent. Did some blunt dissection to identify the general course of the esophagus. Dissection was then performed superiorly up the right tomy to the epiphrenic ligament. Peritoneum excised over the anterior surface of the esophagus but due to the bulk of fibrofatty tissue I ceased that approach at that point. I then identified the proximal third of the greater curvature identified the short gastrics and initiated my dissection with a [place] scalpel. As I approached the spleen hemostasis was nicely intact and it became apparent that there was a significant amount of stomach that was densely adherent to the spleen. Carefully used the harmonic scalpel to the point where the stomach was nearly freed and with the stomach at close proximity was the 2 when after harmonic was released there was bleeding directly from the spleen. Pressure was held for hemostasis fibular was placed trochars and graspers were used to compress the spleen. This then allowed anesthesia time to place a second IV. Placed in the second of IV a significant amount of time. After perhaps as long as 30 minutes then started to inspect the area. The patient at this point did only receive crystalloid. Unfortunately upon releasing pressure bleeding from the spleen was significant. At this point I did not feel that it could be controlled without better visualization. I made a vertical incision in the epigastric area rather quickly and placed a hand GelPort. This allowed me to place a hand inside and immediately put compression on the area of the spleen that was bleeding. This a further allowed anesthesia time to recover. Waited another 30 minutes while holding pressure. Blood had been sent but then there was a problem with the blood bank and repeat drawl had to be obtained and sent. All of this complicated the approach. Finally inspected the spleen with my hand pressure was able to transect the last remaining short gastric stomach was nicely intact and uninjured. I used a argon beam to help control the spleen placed a Hemoclip and then used fibular and FloSeal. Again probably held this morning for another 30 minutes assuring hemostasis was intact. The superior portion of the spleen was somewhat dusky but the bleeding had been maintained in the mid and inferior poles completely viable. At the point of opening and putting the hand-assisted port and I did request that 2 units of blood be typed and crossed. Anesthesia did request that 1 of those be given. Having inspected the plan finding it hemostatic I elected to proceed with the procedure. Using my hand I was able to assist with dissection and was able to circumferentially dissect around the EG junction. Carefully freed up the retromediastinal tissue completely freeing the esophagus for at least 6 cm. Posterior vagus nerve carefully protected posteriorly and the anterior vagus nerve protected well. Peritoneum was Attached to the crura. Excellent exposure was achieved. 1/2 inch [place] drain was placed around the EG junction. At this point I changed back to a laparoscopic approach and approximated the crura with 0 Nurolon and pledgets. This was done in a simple technique. I did request that anesthesia place a bougie. There was some difficulty in getting a 46 [place] bougie to pass. The even using a glide scope. At that point I asked him to cease. I felt that I had the diaphragmatic repair at an appropriate sizing. Stomach and inspected nicely intact The fundus. Secured the posterior aspect of the fundus to the crura with 0 Ethibond. Then performed a toupet procedure approximating the esophagus to the epiphrenic ligament to the right portion of the stomach and then in a running fashion approximated the stomach to the esophagus over a length of approximately 2-1/2 to 3 cm. Measured tension and did the same procedure with the unwrapped portion of the stomach so as to create approximately 270 degree posterior wrap. The fundus approximated to the esophagus proximally to the epiphrenic ligament and then a running fashion approximating the stomach to the esophagus. A toupet was selected as the patient did have some motility findings disorders on the manometry study. At the completion the wrap looked to be quite good solid and intact. The diaphragm nicely repaired. The spleen was still hemostatic. Food was then placed in the abdomen I did an upper endoscopy note will be on probation. EG junction. Now to be intact the graft was intact. There was no air leak. Excess fluid nurse aspirated free. I then performed a bilateral transabdominal plane block. I used the Exparel mixed with the Marcaine mixed with the remaining lidocaine. Bilateral subcostal areas under direct laparoscopic visualization were treated. The 10 mm trocar site was now closed with a grainy needle and a 0 Vicryl [id number] suture under laparoscopic control. This allowed a final view of the spleen and of the wrap both intact. The abdomen was allowed to deflate of the CO2 was trochars were removed. The midline fascia was closed with a running #1 PDS. That fascia was also treated with local as was the subdermal subcutaneous tissues. Skin edges were approximated with interrupted or running subicular 4-0 Monocryl. Steri-Strips Telfa OpSite dressings applied. At the completion of the procedure, I elected to place a Snider catheter. The penis was prepped copiously with Betadine. I injected lubricant and treated a lubricated 16 [place]grin Snider and it was easily placed. The balloon was insufflated. Copious amounts of clear urine returned. Specimens none. Drains none. Blood loss 1200 cc. The patient had remained cardiovascular stable. He was now taken to the recovery area in satisfactory addition. Skip Landry M.D., F.A.C.S. Surgeon: Skip Landry Type of Anesthesia: General Anesthesiologist: David Araiza
[2021-07-29 13:25] LABS: Hematocrit 40.1 % (40-54); Hemoglobin 13.8 g/dL (13.0-16.5); Mean Corp Hgb Conc 34.4 g/dL (32-36); Mean Corpuscular Hgb 30.9 pg (27.0-32.0); Mean Corpuscular Volume 89.7 fL (80-94); Mean Platelet Vol. 8.6 fl (6.2-12.0); Platelet Count 174 K/mm3 (150-450); Red Blood Count 4.47 M/mm3 (4.6-6.2); White Blood Count 11.5 K/mm3 (4.4-11.0)
[2021-07-29 13:37] LABS: Anion Gap 4 (5-15); BUN 16 mg/dL (7-18); BUN/Creat Ratio 14.3 RATIO (10-20); Calcium,Total 7.6 mg/dL (8.5-10.1); Chloride 112 mmol/L (98-107); Creatinine, Serum 1.12 mg/dL (0.70-1.30); EST Glomerular Filtration Rate 69 mL/min (>60); Est Glom Filt Rate - Afr Amer 83 mL/min (>60); Glucose 146 mg/dL (74-106); Sodium Level 139 mmol/L (136-145)
[2021-07-29] MEDS: Lactated Ringers 1,000 ML 50 ML IV (15:35)
[2021-07-29] MEDS: Tamsulosin HCl 0.4 MG Capsule PO (19:57)
[2021-07-29] MEDS: Pantoprazole Sodium 20 MG Tablet PO (19:57)
[2021-07-29] MEDS: hydroCHLOROthiazide 25 MG Tablet PO (21:33)
--- NOTE | 2021-07-29 21:40 | NURSING ---
pt up and ambulated around room prior to getting into bed at this time
[2021-07-30 03:26] VITALS: BP 146/73; PULSE 98; RESP 18; TEMP 37.2; O2SAT 95
[2021-07-30 03:27] VITALS: BMI 32.0
--- NOTE | 2021-07-30 05:14 | NURSING ---
spaulding catheter removed at this time
[2021-07-30 06:14] LABS: Absolute Lymphocyte Count 1.08 X10^3/uL (0.83-4.51); Basophil# 0.02 X10^3/uL; Basophil% 0.3 % (0-1); Eosinophil# 0.01 X10^3/uL; Eosinophils% 0.1 % (0-5); Hematocrit 34.4 % (40-54); Hemoglobin 12.4 g/dL (13.0-16.5); Lymphocyte # 1.08 X10^3/ul (0.83-4.51); Lymphocyte % 14.1 % (19-41); Mean Corpuscular Hgb 30.8 pg (27.0-32.0); Mean Corpuscular Volume 85.4 fL (80-94); Mean Platelet Vol. 8.8 fl (6.2-12.0); Monocyte# 0.53 X10^3/uL; Monocyte% 6.9 % (0-10); NRBC Flagged by Analyzer 0 % (0-5); Neutrophil # 5.97 X10^3/uL (2.7-7.7); Neutrophil % 78.1 % (47-70); Platelet Count 174 K/mm3 (150-450); RBC Distribution Width CV 14.2 % (11.6-14.6); RBC Distribution Width SD 44.3 fl (35.1-43.9); Red Blood Count 4.03 M/mm3 (4.6-6.2); White Blood Count 7.7 K/mm3 (4.4-11.0)
--- NOTE | 2021-07-30 06:31 | PN.SURG_ITS ---
Subjective Subjective Patient is feeling well. Some bilateral shoulder tip pain. No significant abdominal pain. He is tolerating the initiation of clear liquids. Snider has been just removed. Objective Data Objective Data Vital Signs: Vital Signs Temp Pulse Resp BP Pulse Ox 99 F 98 18 146/73 H 95 07/30/21 03:26 07/30/21 03:26 07/30/21 03:26 07/30/21 03:26 07/30/21 03:26 Oxygen Flow Rate (L/min) 2 Oxygen Delivery Method CPAP Weight: 235 lb 14.314 oz Body Mass Index (BMI) 32.0 Intake & Output: Intake and Output for Last 24 Hours 07/28/21 07/29/21 07/30/21 23:59 23:59 23:59 Intake Total 7681 / 7681 Output Total 1050 / 1050 500 / 500 Balance 6631 / 6631 -500 / -500 Lab / Micro Data Result Diagrams: 07/30/21 06:00 07/29/21 13:12 Labs: Laboratory Results - last 24 hr 07/29/21 08:56: Blood Type O POSITIVE, Antibody Screen NEGATIVE, Antibody Identification NEGATIVE ANTIBODY PANEL, Crossmatch See Detail 07/29/21 08:56: Hgb 13.5, Hct 38.8 L 07/29/21 13:12: WBC 11.5 H, RBC 4.47 L, Hgb 13.8, Hct 40.1, MCV 89.7, MCH 30.9, MCHC 34.4, RDW Std Deviation 46.0 H, RDW Coeff of Usman 14.0, Plt Count 174, MPV 8.6 07/29/21 13:12: Sodium 139, Potassium 4.0, Chloride 112 H, Carbon Dioxide 23.0, Anion Gap 4 L, BUN 16, Creatinine 1.12, Estim Creat Clear Calc 66.40, Est GFR (MDRD) Af Amer 83, Est GFR (MDRD) Non-Af 69, BUN/Creatinine Ratio 14.3, Glucose 146 H, Calcium 7.6 L 07/30/21 06:00: WBC 7.7, RBC 4.03 L, Hgb 12.4 L, Hct 34.4 L, MCV 85.4, MCH 30.8, MCHC 36.0, RDW Std Deviation 44.3 H, RDW Coeff of Usman 14.2, Plt Count 174, MPV 8.8, Immature Gran % (Auto) 0.500, Neut % (Auto) 78.1 H, Lymph % (Auto) 14.1 L, [place] % (Auto) 6.9, Eos % (Auto) 0.1, Baso % (Auto) 0.3, Absolute Neuts (auto) 6.0, Absolute Lymphs (auto) 1.08, Nucleated RBC % 0 Physical Exam Const no apparent distress Constitutional Narrative: Alert very comfortable in appearance no acute distress whatsoever Resp normal respiratory effort and clear to auscultation bilaterally GI GI Narrative: Soft, nondistended, bowel sounds present, dressings clean and dry Assessment & Plan Assessment/Plan (1) GERD (gastroesophageal reflux disease): QUALIFIERS: Esophagitis presence: esophagitis presence not specifi ed Qualified Code(s): K21.9 - Gastro-esophageal reflux disease without eso phagitis (2) Hiatal hernia: (3) Splenic hemorrhage: PLAN: For the amount of crystalloid fluid and anesthesia gave the patient yesterday he is absolutely remarkably stable. CBC demonstrates a hemoglobin of 12.4. BMP is still pending. I anticipate mobilization of the patient. Clear liquid diet. Anticipate discharge today pending his ability to void and final patient and laboratory review. Skip Landry M.D., F.A.C.S.
[2021-07-30 06:45] LABS: Anion Gap 5 (5-15); BUN 14 mg/dL (7-18); BUN/Creat Ratio 12.2 RATIO (10-20); Calcium,Total 8.1 mg/dL (8.5-10.1); Chloride 107 mmol/L (98-107); Creatinine, Serum 1.15 mg/dL (0.70-1.30); EST Glomerular Filtration Rate 67 mL/min (>60); Est Glom Filt Rate - Afr Amer 81 mL/min (>60); Estimated Creatinine Clearance 64.67 ml/min; Glucose 124 mg/dL (74-106); Potassium 3.7 mmol/L (3.5-5.1); Sodium Level 139 mmol/L (136-145)
[2021-07-30 07:05] VITALS: BMI 32.0
[2021-07-30 09:02] VITALS: BP 135/87; PULSE 84; RESP 14; TEMP 36.8; O2SAT 97
--- NOTE | 2021-07-30 09:45 | CASEMGMT ---
MARIA EUGENIA MUNOZ Assessment: Face to Face with pt for initial transition planning/care coordination assessment. RN ALEXANDER introduced self and role at [facility], pt voices understanding and consents to assessment. Pt is A/O x4 and answers all questions appropriately at this time. Pt had been ambulating laps in the macias. Care providers, pharmacy, and demographics verified/updated. Admitting Dx: lap toupet procedure PCP: [facility] Specialists: Macario, surgeon; Boom, uro; Neeraj pulm; Kwabena, cardio; , thoracic surgeon Preferred Pharmacy: [facility] Retail Insurance: MCR, Comm other Prescription Benefit: yes LW/HPOA: Pt states he does have a LW/DPOA. States his DPOA is his , Laurie Palomino. He is aware this is not on file at [facility] and he may bring in to be scanned into the chart. LNOK: Laurie Palomino, Living Arrangements: Pt lives with in a two story house with 1 step to enter without a rail. Pt reports he is I in ADL's and denies concerns at home. Transportation: Pt drives self and denies concerns with transportation. DME/HHC/SNF: Pt has a CPAP machine at home, denies any hx of HHC or SNF stays. Pt states no concerns with going home at time of dc. Pt states no further concerns/needs. CM to follow. Advised pt to ask CM if any further question/concerns/needs arise, voices understanding. Pt Goal: Home Plan: Home
== END 2021-07-30 11:45 | disposition home or self-care (01) | DRG 327 ==
LOC: SDC 13:01 → MS3 13:01
PROVIDERS: Admitting Provider Surgery; PCP Family Medicine; Referring Provider Surgery; Visit Provider Surgery
PROC: 0BQT4ZZ Repair Diaphragm, Percutaneous Endoscopic Approach (ICD-10-PCS; CPT 43325; principal; 2021-07-29 07:10)
DX: K44.9 Diaphragmatic hernia without obstruction or gangrene (principal); D78.11 Accidental puncture and laceration of the spleen during a procedure on the spleen; E66.9 Obesity, unspecified; K21.9 Gastro-esophageal reflux disease without esophagitis; E78.5 Hyperlipidemia, unspecified; I10 Essential (primary) hypertension; M10.9 Gout, unspecified; K58.9 Irritable bowel syndrome, unspecified; G47.33 Obstructive sleep apnea (adult) (pediatric); G62.9 Polyneuropathy, unspecified; N40.0 Benign prostatic hyperplasia without lower urinary tract symptoms; K22.70 Barrett's esophagus without dysplasia; Z86.16 Personal history of COVID-19; Z87.01 Personal history of pneumonia (recurrent); Z86.2 Personal history of diseases of the blood and blood-forming organs and certain disorders involving the immune mechanism; Z79.899 Other long term (current) drug therapy; Z87.19 Personal history of other diseases of the digestive system; Z87.891 Personal history of nicotine dependence; Z68.32 Body mass index [BMI] 32.0-32.9, adult; Z97.8 Presence of other specified devices; Y83.8 Other surgical procedures as the cause of abnormal reaction of the patient, or of later complication, without mention of misadventure at the time of the procedure
CPT/HCPCS: 36415; 80048; 85014; 85018; 85025; 85027; 86850; 86870; 86900; 86901; 86920; 86922; 93005; 99251; J7120; P9016; A4216; G0463

== ENCOUNTER 2021-08-08 10:14 | Outpatient (CLI) | payer MEDICARE, OTHER, SELFPAY ==
[2021-08-08 10:27] LABS: Absolute Lymphocyte Count 1.74 X10^3/uL (0.83-4.51); Absolute Neutrophil Count 5.7 X10^3/uL (2.0-7.7); Basophil# 0.09 X10^3/uL; Eosinophil# 0.25 X10^3/uL; Eosinophils% 2.8 % (0-5); Hematocrit 39.1 % (40-54); Hemoglobin 13.2 g/dL (13.0-16.5); Lymphocyte # 1.74 X10^3/ul (0.83-4.51); Lymphocyte % 19.8 % (19-41); Mean Corp Hgb Conc 33.8 g/dL (32-36); Mean Corpuscular Hgb 30.6 pg (27.0-32.0); Mean Corpuscular Volume 90.5 fL (80-94); Monocyte# 0.93 X10^3/uL; Monocyte% 10.6 % (0-10); NRBC Flagged by Analyzer 0 % (0-5); Neutrophil # 5.65 X10^3/uL (2.7-7.7); Neutrophil % 64.2 % (47-70); Platelet Count 584 K/mm3 (150-450); RBC Distribution Width CV 13.2 % (11.6-14.6); RBC Distribution Width SD 43.5 fl (35.1-43.9); Red Blood Count 4.32 M/mm3 (4.6-6.2); White Blood Count 8.8 K/mm3 (4.4-11.0)
== END 2021-08-08 23:59 | disposition home or self-care (01) ==
LOC: PAVLAB 10:15
PROVIDERS: PCP Family Medicine; Referring Provider Surgery; Visit Provider Surgery
DX: R53.83 Other fatigue (principal)
CPT/HCPCS: 36415; 85025

== ENCOUNTER → 2021-09-19 | Outpatient (CLI) | payer MEDICARE, OTHER, SELFPAY | END | disposition home or self-care (01) | LOC: MTLAB 15:14 | PROVIDERS: PCP Family Medicine; Referring Provider Urology; Visit Provider Urology | DX: R97.20 Elevated prostate specific antigen [PSA] (principal) | CPT/HCPCS: 36415; 84153 ==

== ENCOUNTER → 2021-10-22 | Outpatient (CLI) | payer MEDICARE, OTHER, SELFPAY ==
[2021-10-22 08:00] LABS: Bacteria 0 SEEN /hpf (None Seen); Mucous, Urine 0 SEEN /hpf (<or=2+); Red Blood Cells-Urine 0 SEEN /hpf (0-5); Squamous Epithelial Cells - UA 0 SEEN /hpf (0-5); White Blood Cells 0 SEEN /hpf (0-5)
[2021-10-22 10:10] LABS: Absolute Lymphocyte Count 1.68 X10^3/uL (0.83-4.51); Absolute Neutrophil Count 3.1 X10^3/uL (2.0-7.7); Basophil# 0.07 X10^3/uL; Basophil% 1.3 % (0-1); Eosinophil# 0.13 X10^3/uL; Eosinophils% 2.3 % (0-5); Hematocrit 42.4 % (40-54); Hemoglobin 13.7 g/dL (13.0-16.5); Lymphocyte # 1.68 X10^3/ul (0.83-4.51); Lymphocyte % 30.3 % (19-41); Mean Corp Hgb Conc 32.3 g/dL (32-36); Mean Corpuscular Volume 86.5 fL (80-94); Monocyte# 0.51 X10^3/uL; Monocyte% 9.2 % (0-10); NRBC Flagged by Analyzer 0 % (0-5); Neutrophil # 3.14 X10^3/uL (2.7-7.7); Neutrophil % 56.5 % (47-70); Platelet Count 263 K/mm3 (150-450); RBC Distribution Width CV 14.5 % (11.6-14.6); RBC Distribution Width SD 45.7 fl (35.1-43.9); White Blood Count 5.6 K/mm3 (4.4-11.0)
[2021-10-22 10:13] LABS: Color, Urine Yellow (Yellow); Glucose, Dipstick Normal (Normal); Ketone-Dipstick Negative (Negative); Leukocyte Esterase-Dipstick 25 /ul (Negative); Nitrite-Dipstick Negative (Negative); Occult Blood-Urine Negative /ul (Negative); Protein-Dipstick Negative (Negative); Urine Bilirubin Dipstick Negative (Negative); Urine Clarity Clear (Clear); Urine Urobilinogen Normal (Normal)
[2021-10-22 11:04] LABS: ALB/GLOB Ratio 1.1 RATIO (0.9-2.4); AST(SGOT) 17 U/L (15-37); Alanine Aminotransfer ALT/SGPT 19 U/L (16-61); Albumin, Serum 3.5 g/dL (3.2-5.0); Alkaline Phosphatase 75 U/L (45-117); Anion Gap 7 (5-15); BUN 15 mg/dL (7-18); BUN/Creat Ratio 14.4 RATIO (10-20); Calcium,Total 8.7 mg/dL (8.5-10.1); Chloride 107 mmol/L (98-107); Cholesterol 141 mg/dL (200); Creatinine, Serum 1.04 mg/dL (0.70-1.30); EST Glomerular Filtration Rate 75 mL/min (>60); Est Glom Filt Rate - Afr Amer 90 mL/min (>60); Globulin 3.2 g/dL (2.2-4.2); Glucose 92 mg/dL (74-106); High Density Lipoprotein 49 mg/dL; Potassium 3.9 mmol/L (3.5-5.1); Protein, Total 6.7 g/dL (6.4-8.2); Sodium Level 138 mmol/L (136-145); Triglycerides 123 mg/dL; Uric Acid 4.5 mg/dL (3.5-7.2); Very Low Density Lipoprotein 25 mg/dL (5-40)
== END | disposition home or self-care (01) ==
LOC: MTLAB 07:53
PROVIDERS: PCP Family Medicine; Referring Provider Family Medicine; Visit Provider Family Medicine
DX: I10 Essential (primary) hypertension (principal); M10.9 Gout, unspecified; E78.00 Pure hypercholesterolemia, unspecified
CPT/HCPCS: 36415; 80053; 80061; 81001; 84550; 85025

== ENCOUNTER → 2021-10-23 | Outpatient (CLI) | payer MEDICARE, OTHER, SELFPAY ==
[2021-11-01 08:09] LABS: Beef <0.10 kU/L (Class 0); Corn <0.10 kU/L (Class 0); Egg, Whole <0.10 kU/L (Class 0); Milk (Cow) <0.10 kU/L (Class 0); Peanut <0.10 kU/L (Class 0); Pork <0.10 kU/L (Class 0); Soybean <0.10 kU/L (Class 0); Wheat <0.10 kU/L (Class 0)
[2021-11-01 13:49] LABS: Chocolate <0.10 kU/L (Class 0)
== END | disposition home or self-care (01) ==
LOC: MFPLAB 16:37
PROVIDERS: PCP Family Medicine; Referring Provider Family Medicine; Visit Provider Family Medicine
DX: Z91.018 Allergy to other foods (principal)
CPT/HCPCS: 36415; 86003; 86005

== ENCOUNTER → 2022-03-24 | Outpatient (CLI) | payer MEDICARE, OTHER, SELFPAY ==
[2022-03-24 10:01] LABS: Absolute Lymphocyte Count 1.84 X10^3/uL (0.83-4.51); Absolute Neutrophil Count 2.9 X10^3/uL (2.0-7.7); Basophil# 0.08 X10^3/uL; Basophil% 1.5 % (0-1); Eosinophil# 0.12 X10^3/uL; Eosinophils% 2.2 % (0-5); Hematocrit 45.4 % (40-54); Hemoglobin 15.2 g/dL (13.0-16.5); Lymphocyte # 1.84 X10^3/ul (0.83-4.51); Lymphocyte % 34.5 % (19-41); Mean Corp Hgb Conc 33.5 g/dL (32-36); Mean Corpuscular Hgb 30.2 pg (27.0-32.0); Mean Corpuscular Volume 90.3 fL (80-94); Mean Platelet Vol. 8.8 fl (6.2-12.0); Monocyte# 0.44 X10^3/uL; Monocyte% 8.2 % (0-10); NRBC Flagged by Analyzer 0 % (0-5); Neutrophil # 2.85 X10^3/uL (2.7-7.7); Neutrophil % 53.4 % (47-70); Platelet Count 282 K/mm3 (150-450); RBC Distribution Width CV 15.4 % (11.6-14.6); RBC Distribution Width SD 50.9 fl (35.1-43.9); Red Blood Count 5.03 M/mm3 (4.6-6.2); White Blood Count 5.3 K/mm3 (4.4-11.0)
[2022-03-24 10:34] LABS: ALB/GLOB Ratio 1.2 RATIO (0.9-2.4); AST(SGOT) 15 U/L (15-37); Alanine Aminotransfer ALT/SGPT 26 U/L (16-61); Albumin, Serum 3.8 g/dL (3.2-5.0); Alkaline Phosphatase 70 U/L (45-117); Anion Gap 7 (5-15); BUN 26 mg/dL (7-18); BUN/Creat Ratio 21.8 RATIO (10-20); Chloride 107 mmol/L (98-107); Cholesterol 158 mg/dL (200); Creatinine, Serum 1.19 mg/dL (0.70-1.30); EST Glomerular Filtration Rate 64 mL/min (>60); Est Glom Filt Rate - Afr Amer 77 mL/min (>60); Globulin 3.3 g/dL (2.2-4.2); Glucose 88 mg/dL (74-106); High Density Lipoprotein 62 mg/dL; Potassium 4.1 mmol/L (3.5-5.1); Protein, Total 7.1 g/dL (6.4-8.2); Sodium Level 140 mmol/L (136-145); Triglycerides 108 mg/dL; Very Low Density Lipoprotein 22 mg/dL (5-40)
[2022-03-24 10:43] LABS: PSA,Total- Diagnostic 2.36 ng/mL (0.0-4.0)
== END | disposition home or self-care (01) ==
PROVIDERS: PCP Family Medicine; Referring Provider Urology; Visit Provider Urology
DX: R97.20 Elevated prostate specific antigen [PSA] (principal); E78.5 Hyperlipidemia, unspecified
CPT/HCPCS: 36415; 80053; 80061; 84153; 85025

== ENCOUNTER → 2022-12-11 | Outpatient (CLI) | payer MEDICARE, OTHER, SELFPAY ==
[2022-12-11 07:34] LABS: Bacteria 0 SEEN /hpf (None Seen); Mucous, Urine 0 SEEN /hpf (<or=2+); Red Blood Cells-Urine 0 SEEN /hpf (0-5); Squamous Epithelial Cells - UA 0 SEEN /hpf (0-5); White Blood Cells 0 SEEN /hpf (0-5)
[2022-12-11 10:09] LABS: Absolute Neutrophil Count 3.3 X10^3/uL (2.0-7.7); Basophil# 0.08 X10^3/uL; Basophil% 1.4 % (0-1); Eosinophil# 0.17 X10^3/uL; Eosinophils% 2.9 % (0-5); Hematocrit 44.4 % (40-54); Hemoglobin 14.8 g/dL (13.0-16.5); Lymphocyte % 27.7 % (19-41); Mean Corp Hgb Conc 33.3 g/dL (32-36); Mean Corpuscular Hgb 30.7 pg (27.0-32.0); Mean Corpuscular Volume 92.1 fL (80-94); Monocyte# 0.55 X10^3/uL; Monocyte% 9.5 % (0-10); NRBC Flagged by Analyzer 0 % (0-5); Neutrophil # 3.34 X10^3/uL (2.7-7.7); Neutrophil % 57.8 % (47-70); Platelet Count 212 K/mm3 (150-450); RBC Distribution Width CV 13.7 % (11.6-14.6); RBC Distribution Width SD 46.1 fl (35.1-43.9); Red Blood Count 4.82 M/mm3 (4.6-6.2); White Blood Count 5.8 K/mm3 (4.4-11.0)
[2022-12-11 10:36] LABS: Color, Urine Yellow (Yellow); Glucose, Dipstick Normal (Normal); Ketone-Dipstick Negative (Negative); Leukocyte Esterase-Dipstick Negative /ul (Negative); Nitrite-Dipstick Negative (Negative); Occult Blood-Urine Negative /ul (Negative); Protein-Dipstick Negative (Negative); Specific Gravity, Urine 1.025 (1.002-1.030); Urine Bilirubin Dipstick Negative (Negative); Urine Clarity Clear (Clear); Urine Urobilinogen Normal (Normal)
[2022-12-11 11:11] LABS: ALB/GLOB Ratio 1.1 RATIO (0.9-2.4); AST(SGOT) 20 U/L (15-37); Alanine Aminotransfer ALT/SGPT 22 U/L (16-61); Albumin, Serum 3.5 g/dL (3.2-5.0); Alkaline Phosphatase 68 U/L (45-117); Anion Gap 6 (5-15); BUN 22 mg/dL (7-18); BUN/Creat Ratio 18.5 RATIO (10-20); Calcium,Total 8.7 mg/dL (8.5-10.1); Chloride 108 mmol/L (98-107); Cholesterol 134 mg/dL (200); Creatinine, Serum 1.19 mg/dL (0.70-1.30); EST Glomerular Filtration Rate 64 mL/min (>60); Est Glom Filt Rate - Afr Amer 77 mL/min (>60); Globulin 3.1 g/dL (2.2-4.2); Glucose 97 mg/dL (74-106); High Density Lipoprotein 52 mg/dL; Potassium 4.2 mmol/L (3.5-5.1); Protein, Total 6.6 g/dL (6.4-8.2); Sodium Level 140 mmol/L (136-145); Thyroid Stim Hormone (TSH) 2.95 uIU/mL (0.358-3.74); Triglycerides 105 mg/dL; Uric Acid 4.7 mg/dL (3.5-7.2); Very Low Density Lipoprotein 21 mg/dL (5-40)
== END | disposition home or self-care (01) ==
LOC: MTLAB 07:31
PROVIDERS: PCP Family Medicine; Visit Provider Family Medicine
DX: I10 Essential (primary) hypertension (principal); M10.9 Gout, unspecified
CPT/HCPCS: 36415; 80053; 80061; 81001; 84443; 84550; 85025

== ENCOUNTER → 2023-02-19 | Outpatient (CLI) | payer MEDICARE, OTHER, SELFPAY ==
[2023-02-24 19:07] LABS: Banana <0.10 kU/L (Class 0); Cashew <0.10 kU/L (Class 0); Clam <0.10 kU/L (Class 0); Codfish <0.10 kU/L (Class 0); Corn <0.10 kU/L (Class 0); Egg, White <0.10 kU/L (Class 0); Garlic <0.10 kU/L (Class 0); Lobster <0.10 kU/L (Class 0); Milk (Cow) <0.10 kU/L (Class 0); Oat <0.10 kU/L (Class 0); Onion <0.10 kU/L (Class 0); Peanut <0.10 kU/L (Class 0); SCALLOP <0.10 kU/L (Class 0); SESAME SEED <0.10 kU/L (Class 0); Shrimp <0.10 kU/L (Class 0); Soybean <0.10 kU/L (Class 0); Tomato <0.10 kU/L (Class 0); Walnut, (Food) <0.10 kU/L (Class 0); Wheat <0.10 kU/L (Class 0); Yeast <0.10 kU/L (Class 0)
== END | disposition home or self-care (01) ==
PROVIDERS: PCP Family Medicine; Referring Provider Otolaryngology Otolaryngology/Facial Plastic Surgery; Visit Provider Otolaryngology Otolaryngology/Facial Plastic Surgery
DX: T78.40XA Allergy, unspecified, initial encounter (principal)
CPT/HCPCS: 36415; 86003

== ENCOUNTER → 2023-03-11 | Outpatient (CLI) | payer MEDICARE, OTHER, SELFPAY ==
--- NOTE | 2023-03-11 14:55 | CT_ITS ---
STUDY: CT MAXILLOFACIAL SINUSES REASON FOR EXAM: Male, 73 years old. Facial pain RADIATION DOSAGE (If Supplied By Facility): CTDIvol = ( 28.14 ) mGy, DLP = ( 725.09 ) mGycm TECHNIQUE: The patient was scanned in a multi detector CT scanner. High resolution axial imaging was performed without the administration of intravenous contrast material. Sagittal and coronal images were reconstructed. Individualized dose optimization techniques were used for this CT. COMPARISON: None. FINDINGS: FRONTAL SINUSES: Normal aeration, without mucosal inflammatory disease. ETHMOIDAL SINUSES: Normal aeration, without mucosal inflammatory disease. MAXILLARY SINUSES: Minimal mucosal thickening noted in the bases of both maxillary sinuses. SPHENOIDAL SINUSES: Normal aeration, without mucosal inflammatory disease. There is patency of the bilateral maxillary infundibuli with normal uncinate processes, ethmoid bullae, and hiatus semilunaris. Normal bilateral middle turbinates. Normal bilateral inferior turbinates. Normal midline nasal septum. There is patency of the bilateral nasal airways. The visualized osseous structures are normal. The visualized bilateral orbital contents are normal. CT/Sinus/Facial Bone IMPRESSION: Minimal maxillary sinusitis Electronically Signed: Mark Aguayo MD at 12:50 EDT ,
== END | disposition home or self-care (01) ==
LOC: CT 14:54
PROVIDERS: PCP Family Medicine; Referring Provider Otolaryngology Otolaryngology/Facial Plastic Surgery; Visit Provider Otolaryngology Otolaryngology/Facial Plastic Surgery
DX: J32.8 Other chronic sinusitis (principal)
CPT/HCPCS: 70486

== ENCOUNTER 2023-03-24 08:57 | Outpatient (CLI) | payer MEDICARE, OTHER, SELFPAY ==
--- NOTE | 2023-03-24 09:00 | BI_ITS ---
MAMMOGRAPHY - BILATERAL DIAGNOSTIC REASON FOR EXAM: Male, 73 years old. One month history of right breast lump PERTINENT HISTORY: Grandmother with breast cancer. TECHNIQUE: Digital bilateral breast melo (3D mammographic acquisition) in the CC and MLO projections. 2-D mediolateral oblique (MLO) and craniocaudad (CC) views of both breasts were obtained. CAD: Full Field Digital Mammography with Computer Added Detection was performed. COMPARISON: None. Baseline examination. FINDINGS: Breast Composition: The breasts are almost entirely fatty. There are no dominant masses or suspicious calcifications. Fat-containing right axillary lymph node. No other significant abnormalities are identified. BI/DIAG MAMM W/CAD, BILAT IMPRESSION: Negative diagnostic mammogram. With the patient''s history of a palpable lump in the anterior upper lateral aspect of the right breast, correlation with ultrasound is recommended. ASSESSMENT CATEGORY: BIRADS Category 0: Incomplete. Need additional imaging evaluation. A letter regarding these results will be sent to the patient by the facility within 30 days. Approximately 10% of breast cancers are not detected by mammography. A normal mammogram should not delay biopsy of a clinically suspicious abnormality. Electronically Signed: Adan Morgan MD at 9:49 EST ,
--- NOTE | 2023-03-24 09:00 | US_ITS ---
STUDY: ULTRASOUND BREAST - RIGHT REASON FOR EXAM: Male, 73 years old. Palpable lump in the right breast. TECHNIQUE: Axial and longitudinal images of the RIGHT breast were performed with a high resolution ultrasound transducer. # OF IMAGES: 18 COMPARISON: Comparison is made with prior mammogram done earlier in the day. FINDINGS: RIGHT Breast: The palpable lump corresponds to a 1.5 cm x 1.4 cm x 0.6 cm isoechoic/hypoechoic nodule at the 11:00 position of the breast at 1 cm from the nipple. Biopsy recommended. US/Breast Limited Unilateral IMPRESSION: The palpable lump corresponds to 1.57 x 1.4 cm x 0.6 cm isoechoic/hypoechoic nodule at the 11:00 position in the breast at 1 cm from nipple. Biopsy recommended. ASSESSMENT CATEGORY: BIRADS Category 4: Suspicious - Biopsy Should Be Considered. A letter regarding these results will be sent to the patient by the facility within 30 days. Electronically Signed: Adan Morgan MD at 13:51 EST ,
[2023-03-24 10:49] LABS: PSA,Total - Annual Screen 2.66 ng/mL (0.00-4.00)
== END 2023-03-24 23:59 | disposition home or self-care (01) ==
PROVIDERS: PCP Family Medicine; Referring Provider Family Medicine; Visit Provider Family Medicine
DX: Z12.5 Encounter for screening for malignant neoplasm of prostate (principal); N63.11 Unspecified lump in the right breast, upper outer quadrant
CPT/HCPCS: 36415; 76642; 77062; 77066; 84153; G0103; G0279

== ENCOUNTER → 2023-05-29 | Outpatient (CLI) | payer MEDICARE, OTHER, SELFPAY ==
[2023-05-29 15:29] LABS: Erythrocyte Sedimentation Rate 6 mm/hr (0-20)
[2023-05-29 15:40] LABS: Hemoglobin A1c 5.4 % (3.8-5.6)
[2023-05-29 15:46] LABS: Vitamin B12 488 pg/mL (211-911)
[2023-05-29 15:51] LABS: CRP < 2.90 mg/L (0.0-3.0); Free T3 2.4 pg/mL (2.18-3.98); LDH 219 U/L (87-241); Lipase 34 U/L (13-75); T4 Free Direct 0.99 ng/dL (0.76-1.46); Thyroid Stim Hormone (TSH) 2.64 uIU/mL (0.358-3.74)
[2023-06-01 10:13] LABS: Anti-Centromere B Ab <0.2 AI (0.0-0.9); Anti-Chromatin <0.2 AI (0.0-0.9); Anti-Jo <0.2 AI (0.0-0.9); Anti-Scleroderma-70 AB <0.2 AI (0.0-0.9); Anti-dsDNA Ab <1 IU/mL (0-9); RNP Ab 0.8 AI (0.0-0.9); SJOGREN'S Anti-SS-A test 0.2 AI (0.0-0.9); SJOGREN'S Anti-SS-B test < 0.2 AI (0.0-0.9); Smith Ab <0.2 AI (0.0-0.9)
[2023-06-04 00:06] LABS: Endomysial Antibody IgA Negative (Negative); Immunoglobulin A 215 mg/dL (61-437); Immunoglobulin E 15 IU/mL (6-495); Immunoglobulin G 1076 mg/dL (603-1613); Immunoglobulin G, Subclass 1 588 mg/dL (248-810); Immunoglobulin G, Subclass 2 316 mg/dL (130-555); Immunoglobulin G, Subclass 3 65 mg/dL (15-102); Immunoglobulin G, Subclass 4 23 mg/dL (2-96); Immunoglobulin M 66 mg/dL (15-143); t-Transglutaminase IgA <2 U/mL (0-3)
== END | disposition home or self-care (01) ==
LOC: LAB 14:37
PROVIDERS: PCP Family Medicine; Referring Provider Internal Medicine Gastroenterology; Visit Provider Internal Medicine Gastroenterology
DX: R14.3 Flatulence (principal); E11.9 Type 2 diabetes mellitus without complications; R19.7 Diarrhea, unspecified; K63.89 Other specified diseases of intestine
CPT/HCPCS: 36415; 82607; 82784; 82785; 82787; 83036; 83516; 83615; 83690; 84439; 84443; 84481; 85652; 86140; 86225; 86235; 86255

== ENCOUNTER → 2023-06-03 | Outpatient (CLI) | payer MEDICARE, OTHER, SELFPAY ==
--- OUTSIDE RECORDS SUMMARY | 2023-06-03 15:35 | XMS RPT_ITS | CCD ---
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 Name Role Phone SELF, SELF Referring Unavailable GEORGIANA MCFADDEN Primary Care Unavailable Georgiana Florez Primary Care Provider Georgiana Villalobos MD Unavailable Medications Current Medications Medication Drug Class(es) Dates Sig (Normalized) Sig (Original) acetaminophen 500 mg oral tablet (3 sources) Start: 09-24-2020 End: 09-25-2020 take 650 mg by mouth every four hours as needed for pain, then take 4000 mg by mouth every twenty-four hours as needed for pain 650 mg, Oral, EVERY 4 HOURS PRN, Pain Mild (1-3), Fever, Fever >100.5 F (38 C), Starting 09/24/20 at 1617 Maximum dose of acetaminophen is 4000 mg from all sources in 24 hours. 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; Translations: [Neoplasm of uncertain behavior of connective and other soft tissue] Onset: 08-07-2021 08-07-2021 Episodic Other connective tissue disease (1 source) Palmar fascial fibromatosis [Dupuytren]; Translations: [Contracture of palmar fascia] Onset: 08-07-2021 08-07-2021 Episodic Pleurisy; pneumothorax; pulmonary collapse (1 source) Pleural effusion; Translations: [Pleural effusion, not elsewhere classified] Episodic Residual codes; unclassified (2 sources) History of thoracic surgery; Translations: [Other specified postprocedural states] Onset: 09-24-2020 Episodic Past or Other Problems Problem Classification Problem Date Documented Da te Episodic/Chronic Unclassified (1 source) Problem Results Test Name Value Interpretation Reference Range Facil ity Vital Signs Date Time Vital Sign Value Performing Clinician Facility 09-26-2020 07:50-0400 Respiratory rate 16 /min Brad Gama MD Work Phone: [facility] Work Phone: 09-26-2020 07:50-0400 SaO2% (BldA) [Mass fraction] 98 % Brad Gama MD Work Phone: [facility] Work Phone: 09-26-2020 07:08-0400 Body temperature 97.11 [degF] Brad Gama MD Work Phone: [facility] Work Phone: 09-26-2020 07:08-0400 Diastolic blood pressure 78 mm[Hg] Brad Gama MD Work Phone: [facility] Work Phone: 09-26-2020 07:08-0400 Heart rate 81 /min Brad Gama MD Work Phone: [facility] Work Phone: 09-26-2020 07:08-0400 Systolic blood pressure 123 mm[Hg] Brad Gama MD Work Phone: [facility] Work Phone: 09-20-2020 14:11-0400 Body height 182.9 cm Brad Gama MD Work Phone: [facility] Work Phone: 09-20-2020 14:11-0400 Body mass index (BMI) [Ratio] 29.59 kg/m2 Brad Gama MD Work Phone: [facility] Work Phone: 09-20-2020 14:11-0400 Body temperature 97.5 [degF] Brad Gama MD Work Phone: [facility] Work Phone: 09-20-2020 14:11-0400 Body weight 98.97 kg Brad Gama MD Work Phone: [facility] Work Phone: 09-20-2020 14:11-0400 Diastolic blood pressure 89 mm[Hg] Brad Gama MD Work Phone: [facility] Work Phone: 09-20-2020 14:11-0400 Heart rate 94 /min Brad Gama MD Work Phone: [facility] Work Phone: 09-20-2020 14:11-0400 Respiratory rate 20 /min Brad Gama MD Work Phone: [facility] Work Phone: 09-20-2020 14:11-0400 SaO2% (BldA) [Mass fraction] 96 % rBad Gama MD Work Phone: [facility] Work Phone: 09-20-2020 14:11-0400 Systolic blood pressure 119 mm[Hg] Brad Gama MD Work Phone: [facility] Work Phone: NEGATED: Highlighted [id number] 12:32-0400 Body height 180.34 cm [facility] Work Phone: NEGATED: Highlighted [id number] 12:32-0400 Body height 180 cm [facility] Work Phone: NEGATED: Highlighted [id number] 12:32-0400 Body mass index (BMI) [Ratio] 30.93 kg/m2 [facility] Work Phone: NEGATED: Highlighted [id number] 12:32-0400 Body weight 100.25 kg Suzanne Cuadra [employer] [facility] Work Phone: NEGATED: Highlighted [id number] 12:32-0400 Body weight 100 kg Suzanne Cuadra [employer] [facility] Work Phone: Encounters Encounter Date Encounter Type Care Provider Facility Start: 08-07-2021 End: 08-07-2021 Ot evaluation Georgiana Littlejohn MD Work Phone: [facility] Work Phone: Start: 09-24-2020 End: 09-26-2020 Evaluation and management of inpatient Brad Gama MD Work Phone: [facility] Procedures Date Procedure Procedure Detail Performing Clinician Start: 08-07-2021 End: 08-07-2021 BP scrn no perf at interval Georgiana Littlejohn MD Work Phone: Start: 08-07-2021 End: 08-07-2021 Calc BMI abv up gerard f/u Georgiana Littlejohn MD Work Phone: Start: 08-07-2021 End: 08-07-2021 Current tobacco non-user cad cap copd pv dm Georgiana Littlejohn MD Work Phone: Start: 08-07-2021 End: 08-07-2021 Docrev cur meds by mayra Littlejohn MD Work Phone: Start: 08-07-2021 End: 08-07-2021 No doc of pain Georgiana Littlejohn MD Work Phone: Start: 08-07-2021 End: 08-07-2021 Patient encounter procedure Georgiana Littlejohn MD Work Phone: Start: 09-26-2020 Radiologic exam ches t single view Brad Moralez MD Work Phone: Start: 09-26-2020 BASIC METABOLIC PANE L W/ REFLEX TO MG FOR LOW K Brad Moralez MD Work Phone: Start: 09-26-2020 Blood count complete automated Brad Moralez MD Work Phone: Start: 09-25-2020 Radiologic exam ches t single view Brad Moralez MD Work Phone: Start: 09-25-2020 OPERATIVE REPORT 3m Sca nning Start: 09-25-2020 Assay of magnesium Hiram Moralez MD Work Phone: Start: 09-25-2020 BASIC METABOLIC PANE L W/ REFLEX TO MG FOR LOW K Brad Moralez MD Work Phone: Start: 09-24-2020 Radiologic exam ches t single view Brad Moralez MD Work Phone: Start: 09-24-2020 Hemoglobin glycosyla karan a1c Margarethchetna Lou [employer]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[employer]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 Work Phone: Start: 09-20-2020 Antibody screen Brad washington MD Work Phone: Start: 09-20-2020 Radiologic exam ches t 2 views Marielena Umanzor [employer]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[employer] APPRENTICE Work Phone: Start: 09-20-2020 MRSA BY PCR Marielena Palafox on [employer]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ER APPRENTICE Work Phone: Start: 09-20-2020 Blood typing serolog ic abo Marielena Umanzor SALES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ER APPRENTICE Work Phone: Start: 09-20-2020 Comprehensive metabo lic panel Marielena Umanzor SALES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ER APPRENTICE Work Phone: Start: 09-20-2020 Ecg routine ecg w/le ast 12 lds w/i&r Marielena Umanzor SALES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ER APPRENTICE Work Phone: NEGATED: Highlighted rowStart: 08-07-2021 End: 08-07-2021 Documentation of current medications Suzanne Cuadra VIVIANA Plan of Treatment Date Care Activity Detail Author Start: 10-25-2025 DTaP/Tdap/Td vaccine (2 - Td) DTaP/Tdap/Td vaccine (2 - Td) [facility] Work Phone: Start: 09-26-2021 Creatinine measurement Creatinine monitoring [facility] Work Phone: Start: 09-26-2021 Potassium monitoring Potassium monitoring [facility] Work Phone: Start: 09-24-2021 Hemoglobin A1c measurement A1C test (Diabetic or Prediabetic) [facility] Work Phone: Start: 09-20-2021 Creatinine measurement Creatinine monitoring [facility] Work Phone: Start: 09-20-2021 Hemoglobin A1c measurement A1C test (Diabetic or Prediabetic) [facility] Work Phone: Start: 09-20-2021 Potassium monitoring Potassium monitoring [facility] Work Phone: Start: 08-07-2021 End: 08-07-2021 Patient encounter procedure Appointment [facility] Work Phone: Start: 08-07-2021 End: 08-07-2021 Radex hand minimum [address] [facility] Work Phone: Start: 09-24-2020 Subsequent hospital visit by physician 09/24/2020 Hospital Encounter General Surgery Brad Gama MD [address] [place] [address] [facility] General Surgery Start: 09-20-2020 COVID-19 Vaccine (2 - Moderna 2-dose series) COVID-19 Vaccine (2 - Moderna 2-dose series) [facility] Work Phone: Start: 09-13-2020 Annual Wellness Visit (AWV) Annual Wellness Visit (AWV) [facility] Work Phone: Start: 2015 Pneumococcal 65+ years Vaccine (2 of 2 - PPSV23) Pneumococcal 65+ years Vaccine (2 of 2 - PPSV23) [facility] Work Phone: Start: 01-10-2000 Screening for malignant neoplasm of colon Colon cancer screen colonoscopy [facility] Work Phone: Start: 01-10-1960 Lipid panel Lipid screen [facility] Work Phone: Start: 1950 Hepatitis C screening Hepatitis C screen Consult A Doctor Work Phone: Acapella Acapella Respira tory Care Routine Every 2hr while awake until discontinued starting 09/24/2020 [facility] Work Phone: Payers Date Payer Category Payer Medicare [id number] 1950 Unknown [id number] Social History Date Type Detail Facility Start: 09-20-2020 End: 09-25-2020 Tobacco smoking status NHIS Former smoker [facility] Work Phone: History of tobacco use Cigarette Smoker [facility] Start: 09-20-2020 End: 09-25-2020 Cigarettes smoked current (pack per day) - Reported Consult [facility] Work Phone: Start: 09-20-2020 End: 09-25-2020 Tobacco use and exposure Never used [facility] Start: 09-20-2020 End: 09-25-2020 Alcohol intake Current drinker of alcohol (finding) [facility] Work Phone: Start: 09-20-2020 Tobacco Comment 1PPD TIMES 20 YRS QUIT 1979 [facility] Work Phone: Start: 09-13-2020 Alcohol Comment 1 glass of win e per evening [facility] Work Phone: Sex Assigned At Not on file [facility] Work Phone: Exposure to SARS-CoV -2 (event) Not sure [facility] Start: 08-07-2021 End: 08-07-2021 Assertion Unknown if ever smoked [facility] Work Phone: Discharge summary note 09-26-2020 Note Date & Type Note Facility 09-26-2020 Note Attestation signed by Brad Gama MD at 09/27/2020 12:44 PM I independently saw and evaluated the patient - including reviewing the labs, imaging studies, and available documentation. I agree with the findings and plan of care as documented by the resident/GUITAR INSTRUCTOR/CATERING ADMINISTRATIVE ASSISTANT/PA, unless otherwise noted. Please do not hesitate to contact me/us if you have any questions or concerns. Brad Gama MD FACS Discharge Summary: Cardiothoracic Surgery Neeraj Palomino :1950 AGE: 70 y.o. ADMIT DATE: 09/24/2020 DISCHARGE DATE: 09/26/2020 DISCHARGING SURGEON: Brad Gama MD, Office Number: [phone] PRIMARY CARE PHYSICIAN: GEORGIANA FLOREZ VISIT STATUS: Admission CODE STATUS: Prior SURGERY: Right thoracotomy, pulmonary decortication HOSPITAL COURSE: Patient presented on 09/24/20 for pulmonary decortication due to dyspnea with exertion and a post-covid lung entrapment. He underwent right thoracotomy with pulmonary decortication. He tolerated the procedure well. CXRs showed improvement. Chest tube was placed to water seal on 09/25. On 09/26, the chest tube was removed without issue. The patient was discharged home tolerating diet, ambulating without issue, saturating well on room air, and pain was controlled with oral medications. 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 DISCHARGE MEDICATIONS: Neeraj Palomino Home Medication Instructions RE:[id number] Printed on:09/26/20 7070 Medication Information allopurinol (ZYLOPRIM) 300 MG tablet Take 300 mg by mouth daily atorvastatin (LIPITOR) 10 MG tablet Take 10 mg by mouth daily hydroCHLOROthiazide (HYDRODIURIL) 25 MG tablet Take 25 mg by mouth daily Multiple Vitamins-Minerals (THERAPEUTIC MULTIVITAMIN-MINERALS) tablet Take 1 tablet by mouth daily CENTRUM SILVER omeprazole (PRILOSEC) 20 MG delayed release capsule Take 20 mg by mouth daily oxyCODONE (ROXICODONE) 5 MG immediate release tablet Take 1 tablet by mouth every 6 hours as needed for Pain for up to 5 days. Intended supply: 5 days. Take lowest dose possible to manage pain psyllium (KONSYL) 28.3 % PACK Take 1 packet by mouth daily sildenafil (VIAGRA) 100 MG tablet Take 100 mg by mouth as needed for Erectile Dysfunction DIET: No diet orders on file BMI CLASSIFICATION:Overweight (BMI 25.0-29.9) ACTIVITY: activity as tolerated, strict post-sternotomy/post-thoracotomy sternal precautions as outlined in the home going instructions and no driving or operating heavy machinery until released by provider STRICT POST-STERNOTOMY/POST-THORACOTOMY PRECAUTIONS OUTLINED IN THE HOME GOING INSTRUCTIONS FOLLOW UP: Dr. Gama Post-operative Atrial Fibrillation: []Yes [x] No OAC: [] Yes [x] No Initial Post-op RBC transfusion date/reason: none noted during post-operative course Chronic Lung Disease: Unknown DISPOSITION: Home A copy of the discharge instructions which included the medications at the time of discharge, follow-up appointments, phone numbers to call with questions, activity, restrictions, and limitations was provided to the patient or their family. We greatly appreciate the opportunity to participate in the care of your patient. If you have any additional questions or concerns regarding any aspects of their care or management please do not hesitate to contact us. SIGNED: Brad Moralez MD 09/26/2020, 5:39 PM [facility] Hospital Discharge instructions 09-26-2020 Instructions Note Date & Type Note Facility 09-26-2020 Hospital Discharg e instructions Brad Moralez MD - 09/26/2020 Images from the original note were not included. [facility]: Cardiothoracic Surgery [address] [place] (T): #[phone] (F): #[phone] After lung surgery, it is common to feel tired up to 6 to 8 weeks. Your chest may hurt and or be swollen for up to 6 weeks. It can also ache or feel stiff for up to 3 months. It is not uncommon to have tightness, itching, numbness, or tingling around the incision for up to 3 months. You may feel short of breath at first after the surgery. It is important to continue the deep-breathing and coughing exercises that you were taught in the hospital at home during your recovery. This helps your body get as much oxygen as possible. The amount of time you will need to recover depends on the surgery you had. You probably will need to take at least 1 to 2 months off work dependent on the work you do. Your Recovery: Activity, Diet, Incisional Care and Exercise Rest when you feel tired. Getting enough sleep will help you recover. Try to walk each day. Start by walking a little more than you did the day before, increasing the amount you walk. Walking boosts blood flow and helps prevent pneumonia and constipation. Do not smoke or allow others to smoke around you. If you need help quitting, talk to your provider about stop-smoking programs and medicines. These can increase your chances of quitting for good. Try to avoid being around people who you know have a cold, the flu, or other illness. Avoid strenuous activities, such as bicycle riding, jogging, weight lifting, or aerobic exercise for at least 4 weeks. Also avoid swimming, tennis, golf, or other activities that could strain your arm and shoulder muscles, during this time. Initial weight restriction is 10lbs for 2 weeks, avoid lifting anything that would make you strain. This may include a child, heavy grocery bags and milk containers, a heavy briefcase or backpack, cat litter or dog food bags, or a vacuum kettle cleaner. If your incision is in the front or the side of your chest, hold a pillow over the incision when you cough or take deep breaths. This will support your chest and decrease your pain. No driving for 2 weeks. This is because your arm and shoulder muscles may be stiff after surgery and could make it difficult to steer. You must also be off all narcotic and sedative medications prior to returning to driving. Ok to shower. Avoid any baths or hot-tubs for 3 weeks. Wash you incision daily with warm, soapy water, and pat it dry. Do not scrub your incision(s). Do not apply any lotions or powders, hydrogen peroxide or alcohol on your incision(s). You may cover the area with a gauze bandage if it weeps or rubs against your clothing. Keep the area clean and dry. Diet: You can eat your normal diet. If your stomach is upset, try bland, low-fat foods like plain rice, broiled chicken, toast, and yogurt. Drink plenty of fluids. You may notice that your bowel movements are not regular right after your surgery. This is common. Try to avoid constipation and straining with bowel movements. You may take an over the counter stool softener as needed. If your incision has cary, these will be removed at your follow-up visit 10-14 days with your provider. Also, sutures from drains/tubes will be removed at this time. Continue to follow discharge stretching exercises outlined below. Start each exercise slowly. Ease off the exercises if you start to have pain. Shoulder Stretch 1. 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 Your elbow should be a little higher than your shoulder. 2. Relax your shoulders as you lean forward, allowing your chest and shoulder muscles to stretch. You can also turn your body slightly away from your arm to stretch the muscles even more. 3. Hold for 15 to 30 seconds. 4. Repeat 2 to 4 times with each arm. Shoulder and Chest Stretch 1. While sitting, relax your upper body so you slump slightly in your chair. 2. As you breathe in, straighten your back and open your arms out to the sides. 3. Gently pull your shoulder blades back and downward. 4. Hold for 15 to 30 seconds as your breathe normally. 5. Repeat 2 to 4 times. Overhead stretch 1. Reach up over your head with both arms. 2. Hold for 15 to 30 seconds. 3. Repeat 2 to 4 times. Acute post operative pain management: -Continue to use narcotic/opioid analgesic medication prescribed on discharge from the hospital. If you are prescribed oxycodone/acetaminophen (Percocet) or hydrocodone/acetaminophen (Benton/Vicodin) be cautious when taking additional tylenol. No driving or operating heavy machinery while taking a narcotic/opioid analgesic medication. -Tylenol (acetaminophen) 500 mg 1-2 tablets every 6 hours. No more than 4 grams in 24 hour period. Tylenol is not recommended with liver disorders. -Motrin (ibuprofen) 200-400 mg by mouth every 4-6 hours (or) 600-800mg every 8 hours as needed if not contraindicated. Ibuprofen is not recommended with renal disorders or if you are taking Warfarin (coumadin/jantoven). Maximum dose 3,200 mg per day. -Over the counter pain patches called Salon pas may used as needed next to incision but not on your incision. -Ice packs applied for 20 minutes then off for at least 20 minutes before reapplying. Call your Surgeon or return to the Emergency Room if you experience: -New or increased pain. -New or increased bleeding. -Nausea & vomiting. -Fever & chills. -Shortness of breath. -Chest pain. -Abdominal distention. documented in this encounter Consult A Doctor Work Phone: History of Present illness Narrative 09-26-2020 Aletha Demarco RN - 09/26/2020 1:37 PM Paris Valencia - 09/26/2020 12:01 PM Brad Perez MD - 09/26/2020 6:10 AM Kerwin Parsons PT - 09/25/2020 10:25 AM EDT Note Date & Type Note Facility 09-26-2020 History of Present illness Narrative Went over discharge instructions, med rec, and prescription with pt. Pt verbalized understanding. Extra drsgs given to pt. Transportation notified of discharge Nutrition rescreen completed. Chart reviewed. Patient to be monitored and followed by the diet nurse technician. [facility] Department of Surgery - Progress Note PATIENT NAME: Neeraj Palomino : 1950 ATTENDING PHYSICIAN: Brad Gama MD ADMIT DATE: 09/24/2020 TODAY'S DATE: 09/26/2020 SUBJECTIVE Patient states he is doing well this morning. Denies any shortness of breath. States his pain is well controlled. He tolerated diet yesterday. Denies fevers or chills. OBJECTIVE VITALS: BP 121/77 Pulse 96 Temp 97.7 F (36.5 C) (Temporal) Resp 18 SpO2 97% INTAKE/OUTPUT: I/O last 3 completed shifts: In: 1200 [P.O.:1200] Out: 1670 [Urine:1600; Chest Tube:70] No intake/output data recorded. Physical Exam Constitutional: General: He is not in acute distress. Appearance: He is well-developed. HENT: Head: Normocephalic and atraumatic. Eyes: Pupils: Pupils are equal, round, and reactive to light. Neck: Vascular: No JVD. Trachea: No tracheal deviation. Cardiovascular: Rate and Rhythm: Normal rate and regular rhythm. Pulmonary: Effort: Pulmonary effort is normal. No respiratory distress. Comments: Right chest tube in place. No air leak visualized. Abdominal: Palpations: Abdomen is soft. Tenderness: There is no abdominal tenderness. Musculoskeletal: General: No tenderness or deformity. Skin: General: Skin is warm and dry. Neurological: Mental Status: He is alert and oriented to person, place, and time. Psychiatric: Behavior: Behavior normal. Data Recent Labs 09/24/20 1145 09/25/20 0401 WBC 6.5 8.5 HGB 14.9 13.2 HCT 44.1 38.3* PLT 316 303 Recent Labs 09/25/20 0401 NA 135 K 3.9 CL 101 CO2 25 BUN 19 CREATININE 0.79 GLUCOSE 159* No results for input(s): AST, ALT, ALB, BILITOT, ALKPHOS in the last 72 hours. Current Inpatient Medications Current Facility-Administered Medications: HYDROmorphone (DILAUDID) injection 0.25 mg, 0.25 mg, Intravenous, Q4H PRN OR HYDROmorphone (DILAUDID) injection 0.5 mg, 0.5 mg, Intravenous, Q4H PRN oxyCODONE (ROXICODONE) immediate release tablet 5 mg, 5 mg, Oral, Q4H PRN OR oxyCODONE (ROXICODONE) immediate release tablet 10 mg, 10 mg, Oral, Q4H PRN allopurinol (ZYLOPRIM) tablet 300 mg, 300 mg, Oral, Daily hydroCHLOROthiazide (HYDRODIURIL) tablet 25 mg, 25 mg, Oral, Daily atorvastatin (LIPITOR) tablet 10 mg, 10 mg, Oral, Nightly pantoprazole (PROTONIX) tablet 40 mg, 40 mg, Oral, QAM AC sodium chloride flush 0.9 % injection 10 mL, 10 mL, Intravenous, 2 times per day sodium chloride flush 0.9 % injection 10 mL, 10 mL, Intravenous, PRN 0.9 % sodium chloride infusion, 25 mL, Intravenous, PRN ipratropium-albuterol (DUONEB) nebulizer solution 1 ampule, 1 ampule, Inhalation, Q4H WA polyethylene glycol (GLYCOLAX) packet 17 g, 17 g, Oral, Daily senna (SENOKOT) tablet 8.6 mg, 1 tablet, Oral, Nightly acetaminophen (TYLENOL) tablet 1,000 mg, 1,000 mg, Oral, TID ASSESSMENT AND PLAN Active Problems: S/P thoracotomy Resolved Problems: * No resolved hospital problems. * 70 y.o. male s/p right thoracotomy with decortication 09/24. Post-operatively he is doing well. He is on room air. Pain is well controlled. -Regular diet -Saline lock -Ambulate -Chest tube to water seal. -Daily CXR- will consider chest tube removal today if CXR appears stable. -SCDs for DVT ppx -IS/acapella -Duonebs -Wean pain medications per pain management team -Possible discharge today if chest tube can be removed and patient is doing well. Associated attestation - Brad Gama MD - 09/26/2020 2:01 PM EDT I independently saw and evaluated the patient - including reviewing the labs, imaging studies, and available documentation. I agree with the findings and plan of care as documented by the resident/GUITAR INSTRUCTOR/CATERING ADMINISTRATIVE ASSISTANT/PA, unless otherwise noted. Please do not hesitate to contact me/us if you have any questions or concerns. Brad Gama MD FACS Physical Therapy Facility/Department: [facility] Initial Assessment NAME: Neeraj Palomino : 1950 Date of Service: 09/25/2020 Discharge Recommendations: Home with assist PRN PT Equipment Recommendations Equipment Needed: No Assessment Assessment: Pt ambulating functional distance no overt LOB. Instructed IS and P&C ex. Anticipate discharge to home with assist as needed. No acute PT needs. Prognosis: Good Decision Making: Low Complexity PT Education: Home Exercise Program No Skilled PT: Safe to return home REQUIRES PT FOLLOW UP: No Activity Tolerance Activity Tolerance: Patient Tolerated treatment well Patient Diagnosis(es): There were no encounter diagnoses. has a past medical history of Acute appendicitis, Acute respiratory failure with hypoxia (HCC), Arthritis, COVID-19, Elevated d-dimer, Elevated PSA, Essential hypertension, GERD (gastroesophageal reflux disease), Gout, Hyperlipidemia, IBS (irritable bowel syndrome), Left foot drop, Neuropathy of left lower extremity, Obesity, Obstructive sleep apnea, Pleural effusion on right, Thrombocytosis (HCC), and Varicose vein of leg. has a past surgical history that includes Colonoscopy (2012); Appendectomy (03/2020); Nasal septum surgery; and hernia repair. Restrictions Restrictions/Precautions Restrictions/Precautions: Up Ad Yvonne Required Braces or Orthoses?: No Position Activity Restriction Other position/activity restrictions: chest tube x 2 Vision/Hearing Vision: Within Functional Limits Hearing: Within functional limits Subjective General Chart Reviewed: Yes Patient assessed for rehabilitation services?: Yes Family / Caregiver Present: No Diagnosis: s/p thoracotomy Follows Commands: Within Functional Limits General Comment Comments: with decortication Subjective Subjective: Pt ambulting hallways independently. Pain Screening Patient Currently in Pain: Yes Pain Assessment Pain Assessment: 0-10 Pain Level: 2 Pain Type: Acute pain;Surgical pain Pain Location: Rib cage Non-Pharmaceutical Pain Intervention(s): Ambulation/Increased Activity Vital Signs Patient Currently in Pain: Yes Orientation Orientation Overall Orientation Status: Within Functional Limits Social/Functional History Social/Functional History Lives With: Spouse Type of Home: House Home Layout: One level ADL Assistance: Independent Homemaking Assistance: Independent Ambulation Assistance: Independent Transfer Assistance: Independent Active Cake Icer And Packer: Yes Cognition Cognition Overall Cognitive Status: WFL Objective Observation/Palpation Observation: chest tube x1 AROM RLE (degrees) RLE AROM: WFL AROM LLE (degrees) LLE AROM : WFL Strength RLE Strength RLE: WFL Strength LLE Strength LLE: WFL Tone RLE RLE Tone: Normotonic Tone LLE LLE Tone: Normotonic Motor Control Gross Motor?: WFL Sensation Overall Sensation Status: WNL Bed mobility Comment: NT-pt up walking around the unit. Transfers Sit to Stand: Independent Stand to sit: Independent Ambulation Ambulation?: Yes More Ambulation?: No Ambulation 1 Surface: level tile Device: No Device Assistance: Independent Distance: 150 ft Comments: Pt has been ambulating around the unit multiple times. Stairs/Curb Stairs?: Yes Stairs # Steps : 8 Stairs Height: 8 Rails: Left ascending Device: No Device Assistance: Independent Balance Posture: Fair Sitting - Static: Good Sitting - Dynamic: Good Standing - Static: Good Standing - Dynamic: Good Exercises Comments: IS and P&C ex Plan Plan Times per week: eval only Safety Devices Type of devices: None(Spouse at bed side, N95) Restraints Initially in place: No G-Code OutComes Score [facility] Score [facility] Inpatient Mobility Raw Score : 24 (09/25/20 1025) [facility] Inpatient T-Scale Score : 61.14 (09/25/20 1025) Mobility Inpatient CMS 0-100% Score: 0 (09/25/20 1025) Mobility Inpatient [facility] G-Code Modifier : CH (09/25/20 1025) Goals Patient Goals Patient goals : eval only Therapy Time Individual Concurrent Group Co-treatment Time In 1000 Time Out 1010 Minutes 10 Kerwin Crocker PT Department of Surgery - Progress Note PATIENT NAME: Neeraj Palomino : 1950 ATTENDING PHYSICIAN: Brad Gama MD ADMIT DATE: 09/24/2020 TODAY'S DATE: 09/25/2020 SUBJECTIVE Patient states he is doing well this morning. Denies any shortness of breath. States his pain is well controlled. He tolerated a small amount of regular food yesterday. OBJECTIVE VITALS: BP 115/68 Pulse 80 Temp 97.9 F (36.6 C) (Temporal) Resp 20 SpO2 95% INTAKE/OUTPUT: I/O last 3 completed shifts: In: 1000 [P.O.:1000] Out: 160 [Chest Tube:160] I/O this shift: In: - Out: 970 [Urine:950; Chest Tube:20] Physical Exam Constitutional: General: He is not in acute distress. Appearance: He is well-developed. HENT: Head: Normocephalic and atraumatic. Eyes: Pupils: Pupils are equal, round, and reactive to light. Neck: Vascular: No JVD. Trachea: No tracheal deviation. Cardiovascular: Rate and Rhythm: Normal rate and regular rhythm. Pulmonary: Effort: Pulmonary effort is normal. No respiratory distress. Comments: Right chest tube in place. No air leak visualized. Abdominal: Palpations: Abdomen is soft. Tenderness: There is no abdominal tenderness. Musculoskeletal: General: No tenderness or deformity. Skin: General: Skin is warm and dry. Neurological: Mental Status: He is alert and oriented to person, place, and time. Psychiatric: Behavior: Behavior normal. Data Recent Labs 09/24/20 1145 09/25/20 0401 WBC 6.5 8.5 HGB 14.9 13.2 HCT 44.1 38.3* PLT 316 303 Recent Labs 09/25/20 0401 NA 135 K 3.9 CL 101 CO2 25 BUN 19 CREATININE 0.79 GLUCOSE 159* No results for input(s): AST, ALT, ALB, BILITOT, ALKPHOS in the last 72 hours. Current Inpatient Medications Current Facility-Administered Medications: atorvastatin (LIPITOR) tablet 10 mg, 10 mg, Oral, Nightly pantoprazole (PROTONIX) tablet 40 mg, 40 mg, Oral, QAM AC lactated ringers infusion, , Intravenous, Continuous sodium chloride flush 0.9 % injection 10 mL, 10 mL, Intravenous, 2 times per day sodium chloride flush 0.9 % injection 10 mL, 10 mL, Intravenous, PRN 0.9 % sodium chloride infusion, 25 mL, Intravenous, PRN acetaminophen (TYLENOL) tablet 650 mg, 650 mg, Oral, Q4H PRN ipratropium-albuterol (DUONEB) nebulizer solution 1 ampule, 1 ampule, Inhalation, Q4H GA polyethylene glycol (GLYCOLAX) packet 17 g, 17 g, Oral, Daily senna (SENOKOT) tablet 8.6 mg, 1 tablet, Oral, Nightly acetaminophen (TYLENOL) tablet 1,000 mg, 1,000 mg, Oral, TID naloxone (NARCAN) injection 0.4 mg, 0.4 mg, Intravenous, PRN HYDROmorphone (DILAUDID) 30 mg in sodium chloride 0.9 % 30 mL STEAMER TENDER, , Intravenous, Continuous HYDROmorphone (DILAUDID) injection 0.5 mg, 0.5 mg, Intravenous, PRN ASSESSMENT AND PLAN Active Problems: S/P thoracotomy Resolved Problems: * No resolved hospital problems. * 70 y.o. male s/p right thoracotomy with decortication 09/24. Post-operatively he is doing well. He is on room air. Pain is well controlled. -Regular diet -Saline lock -Ambulate -Chest tube to water seal. -Daily CXR -SCDs for DVT ppx -IS/acapella -Duonebs -Wean pain medications per pain management team -Transfer to [address] Associated attestation - Brad Gama MD - 09/25/2020 12:11 PM EDT I independently saw and evaluated the patient - including reviewing the labs, imaging studies, and available documentation. I agree with the findings and plan of care as documented by the resident/GUITAR INSTRUCTOR/CATERING ADMINISTRATIVE ASSISTANT/PA, unless otherwise noted. Please do not hesitate to contact me/us if you have any questions or concerns. Brad Gama MD FACS Belongings taken to pt admit room [address] Ernestine HUYNH documented in this encounter [facility] Work Phone: History of Present illness Narrative 09-20-2020 Margareth Lou APRN - ETCHER APPRENTICE - 09/20/2020 2:00 PM EDT Note Date & Type Note Facility 09-20-2020 History of Present illness Narrative Received notification per lab- CBC and A1C clotted Ordered repeat DOS. documented [facility] this encounter [facility] Work Phone: Hospital Discharge instructions 09-20-2020 InstructionsAttachments Note Date & Type Note Facility 09-20-2020 Hospital Discharge instructions Eva Servin RN - 09/20/2020 Please bring your CPAP/BiPAP device, mask, and equipment with you on the day of surgery. Do not bring water for your machine, it will be provided.Shower with and antibacterial soap such as Dial or Safeguard. Please bring your [facility] Information folder on the day of surgery. Please joshua the last dose taken (date and time ) on your Daily Medications List provided in your After Visit Summary. Please bring a photo ID and insurance information Do NOT take the following medications on the morning of surgery HYDROCHLOROTHIAZIDE MULTIVITAMIN TAKE the following medications the morning of your surgery OMEPRAZOLE You may take your prescription pain medications. You may take Tylenol (Acetaminophen) if needed for pain. No Motrin, Ibuprofen, or Advil 24 hours prior to surgery, or longer if instructed by your surgeon. No Aleve or Naprosyn 3 days prior to surgery, or longer if instructed by your surgeon. If you are on BLOOD THINNERS or ASPIRIN, STOP ANY ASPIRIN 5 DAYS PRIOR Additional instructions FOLLOW ANY FURTHER INSTRUCTIONS THAT DR GAMA MAY HAVE GIVEN TO YOUR You will receive a reminder call the day before surgery with your Same Day Surgery arrival time. If you have specific questions, please call your surgeon. The following attachments cannot be sent through Care Everywhere.VATS (Video-Assisted Thoracoscopic Surgery): Post-op (Mal[place]ian)Thoracoscopic Sympathectomy: Pre-op ([place]awian)Thoracotomy: Post-op ([place]awian)VATS (Video-Assisted Thoracoscopic Surgery): Pre-op ([place]ian)documented in this encounter [facility] Work Phone: Evaluation note Note Date & Type Note Facility documented in this encounter [facility] Work Phone: Evaluation note Note Date & Type Note Facility documented in this encounter [facility] Work Phone: Evaluation note Note Date & Type Note Facility Evaluation note There may be informa tion available, but it has not been provided by the sender. [facility] Work Phone: Instructions Note Date & Type Note Facility [facility] Work Phone: Summary Purpose Family History No Family History Records FoundThere may be information available, but it has not been provided by the sender.No Family History Records Found Advance Directives No Advanced Directives Records FoundLatest Code Status on File Code Status Date Activated Date Inactivated Comments Full Code 09/24/2020 4:17 PM Full Code 09/24/2020 11:36 AM 09/24/2020 4:02 PM Reason for Referral Status Reason Specialty Diagnoses / Procedures Referre d By Contact Referred To Contact [facility] Diagnoses Pleural effusion Procedures EKG 12 lead Marielena Umanzor, SALES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ER APPRENTICE [address] [address] Chief Complaint Chief Complaint Description Start Date bilateral hand pain Preliminary chief co mplaint data, not yet signed by the author as of Additional Source Comments (unrecognized sect ion and content) No Status Records FoundNo Status Records Found INFORMATION SOURCE (unrecogn ized section and content) DATE CREATED AUTHOR AUTHOR'S ORGANIZ ATION 08/30/2021 [facility] Ordered Prescriptions (unrec ognized section and content) Reason for Visit (unrecogniz ed section and content) FOR RECORDS PERTAINING TO PATIENTS WHO ARE OR HAVE BEEN ENROLLED IN A CHEMICAL DEPENDENCY/SUBSTANCEABUSE PROGRAM, SOME INFORMATION MAY BE OMITTED. This clinical summary was aggregated from multiple sources. Caution should be exercised in using it in the provision of clinical care. This summary normalizes information from multiple sources, and as a consequence, information in this document may materially change the coding, format and clinical context of patient data. In addition, data may be omitted in some cases. CLINICAL DECISIONS SHOULD BE BASED ON THE PRIMARY CLINICAL RECORDS. [employer] [facility]. provides no warranty or guarantee of the accuracy or completeness of information in this document.
[2023-06-09 00:07] LABS: Calprotectin, Stool 15 ug/g (0-120)
[2023-06-09 13:08] LABS: Pancreatic Elastase, Fecal 242 (>200)
== END | disposition home or self-care (01) ==
PROVIDERS: PCP Family Medicine; Referring Provider Internal Medicine Gastroenterology; Visit Provider Internal Medicine Gastroenterology
DX: R19.7 Diarrhea, unspecified (principal); K58.9 Irritable bowel syndrome, unspecified; R14.3 Flatulence
CPT/HCPCS: 82653; 83630; 83993; 87177; 87209; 87329; 87493; 87506

== ENCOUNTER → 2023-06-26 | Outpatient (CLI) | payer MEDICARE, OTHER, SELFPAY ==
[2023-06-26 17:30] LABS: Absolute Lymphocyte Count 1.55 X10^3/uL (0.83-4.51); Basophil# 0.08 X10^3/uL; Basophil% 1.3 % (0-1); Eosinophil# 0.16 X10^3/uL; Eosinophils% 2.5 % (0-5); Hematocrit 45.1 % (40-54); Lymphocyte # 1.55 X10^3/ul (0.83-4.51); Lymphocyte % 24.4 % (19-41); Mean Corp Hgb Conc 33.3 g/dL (32-36); Mean Corpuscular Volume 90.2 fL (80-94); Mean Platelet Vol. 8.7 fl (6.2-12.0); Monocyte# 0.49 X10^3/uL; Monocyte% 7.7 % (0-10); NRBC Flagged by Analyzer 0 % (0-5); Neutrophil # 4.04 X10^3/uL (2.7-7.7); Neutrophil % 63.6 % (47-70); Platelet Count 241 K/mm3 (150-450); RBC Distribution Width CV 14.4 % (11.6-14.6); RBC Distribution Width SD 46.4 fl (35.1-43.9); White Blood Count 6.4 K/mm3 (4.4-11.0)
--- OUTSIDE RECORDS SUMMARY | 2023-06-26 17:39 | XMS RPT_ITS | CCD ---
Author Name Unknown Address [address] [place] [address] Organization [facility] Care Team Providers Care Ring Striker Name Role Phone SELF, SELF Referring Unavailable GEORGIANA MCFADDEN Primary Care Unavailable Georgiana Florez Primary Care Provider Georgiana Villalobos MD Unavailable [phone] Medications Current Medications Medication Drug Class(es) Dates [...] 16 /min Brad Gama MD Work Phone: [facility] Work Phone: 09-26-2020 07:50-0400 SaO2% (BldA) [Mass fraction] 98 % Brad Gama MD Work Phone: [facility] Work Phone: 09-26-2020 07:08-0400 Body temperature 97.11 [...] 14:11-0400 SaO2% (BldA) [Mass fraction] 96 % Brad Gama MD Work Phone: [facility] Work Phone: 09-20-2020 14:11-0400 Systolic blood pressure 119 mm[Hg] Brad Gama MD Work Phone: [facility] Work Phone: NEGATED: Highlighted [id number] 12:32-0400 Body height 180.34 cm [facility] Work Phone: NEGATED: Highlighted [id number] 12:32-0400 Body height 180 cm [facility] Work Phone: NEGATED: Highlighted [id number] 12:32-0400 Body mass index (BMI) [Ratio] 30.93 kg/m2 [facility] Work Phone: NEGATED: Highlighted [id number] 12:32-0400 Body weight 100.25 kg Suzanne Cuadra VIRTUAL REALITY SPECIALIST [facility] Work Phone: NEGATED: Highlighted [id number] 12:32-0400 Body weight 100 kg Suzanne Cuadra VIRTUAL REALITY SPECIALIST [facility] Work Phone: Encounters Encounter Date Encounter Type Care Provider Facility Start: 08-07-2021 End: 08-07-2021 Ot evaluation Georgiana Littlejohn MD Work Phone: [facility] Work Phone: Start: 09-24-2020 End: 09-26-2020 Evaluation [...] 09-24-2020 Hemoglobin glycosyla karan a1c Margarethchetna Lou FUR WEIGHER - PULP REFINER OPERATOR Work Phone: Start: 09-20-2020 Antibody screen Brad washington MD Work Phone: Start: 09-20-2020 Radiologic exam ches t 2 views Marielena Umanzor FUR WEIGHER - PULP REFINER OPERATOR Work Phone: Start: 09-20-2020 MRSA BY PCR Marielena Palafox on FUR WEIGHER - PULP REFINER OPERATOR Work Phone: Start: 09-20-2020 Blood typing serolog ic abo Marielena Umanzor FUR WEIGHER - PULP REFINER OPERATOR Work Phone: Start: 09-20-2020 Comprehensive metabo lic panel Marielena Umanzor FUR WEIGHER - PULP REFINER OPERATOR Work Phone: Start: 09-20-2020 Ecg routine ecg w/le ast 12 lds w/i&r Marielena Umanzor FUR WEIGHER - PULP REFINER OPERATOR Work Phone: NEGATED: Highlighted rowStart: 08-07-2021 End: [...] 08-07-2021 Patient encounter procedure Appointment [facility] Work Phone: Start: 08-07-2021 End: 08-07-2021 Radex hand minimum 3 views [facility] Work Phone: Start: 09-24-2020 Subsequent hospital visit by physician 09/24/2020 Hospital Encounter General Surgery Brad Gama MD [address] [place] [address] [facility] General Surgery Start: 09-20-2020 COVID-19 Vaccine (2 [...] Phone: Start: 01-10-1960 Lipid panel Lipid screen [facility] Work Phone: Start: 1950 Hepatitis C screening Hepatitis C screen [facility] Work Phone: Acapella Acapella Respira tory Care Routine Every 2hr while awake until discontinued starting 09/24/2020 [facility] Work Phone: Payers Date Payer Category Payer Medicare [id number] 1950 Unknown [id number] Social History Date Type Detail Facility Start: 09-20-2020 End: 09-25-2020 Tobacco smoking status NHIS Former smoker [facility] Work Phone: History of tobacco use Cigarette Smoker [facility] Start: 09-20-2020 End: 09-25-2020 Cigarettes smoked current (pack per day) - Reported [facility] Work Phone: Start: 09-20-2020 End: 09-25-2020 Tobacco use and exposure Never used [facility] Start: 09-20-2020 End: 09-25-2020 Alcohol intake Current drinker of alcohol (finding) [facility] Work Phone: Start: 09-20-2020 Tobacco Comment 1PPD TIMES 20 YRS QUIT 1979 [facility] Work Phone: Start: 09-13-2020 Alcohol Comment 1 glass of win e per evening [facility] Work Phone: Sex Assigned At Not on file [facility] Work Phone: Exposure to SARS-CoV -2 (event) Not sure [facility] Start: 08-07-2021 End: 08-07-2021 Assertion Unknown if ever smoked [facility] Work Phone: Discharge summary note 09-26-2020 Note Date & Type Note Facility 09-26-2020 Note Attestation signed by Brad Gama MD at 09/27/2020 12:44 PM I independently saw and evaluated the patient - including reviewing the labs, imaging studies, and available documentation. I agree with the findings and plan of care as documented by the resident/MICROBIOLOGY TEACHER/MEDICAL EXAMINER/PA, unless otherwise noted. Please do not hesitate to contact me/us if you have any questions or concerns. Brad Gama MD FACS Discharge Summary: Cardiothoracic Surgery Neeraj Palomino :1950 AGE: 70 y.o. ADMIT DATE: 09/24/2020 DISCHARGE DATE: 09/26/2020 DISCHARGING SURGEON: Brad Gama MD, Office Number: [phone] PRIMARY CARE PHYSICIAN: GEORGIANA FLOREZ VISIT STATUS: [...] DISCHARGE MEDICATIONS: Neeraj Palomino Home Medication Instructions RE:[id number] Printed on:09/26/20 0187 Medication Information allopurinol (ZYLOPRIM) 300 MG tablet [...] SIGNED: Brad Moralez MD 09/26/2020, 5:39 PM [facility] Hospital Discharge instructions 09-26-2020 Instructions Note Date & Type Note Facility 09-26-2020 Hospital Discharg e instructions Brad Moralez MD - 09/26/2020 Images from the original note were not included. [facility]: Cardiothoracic Surgery [address] [place] (T): #[phone] (F): #[phone] After lung surgery, it is common to [...] or dog food bags, or a vacuum cesspool cleaner. If your incision is in the [...] start to have pain. Shoulder Stretch 1. rate examiner a doorway and place one arm against [...] you are prescribed oxycodone/acetaminophen (Percocet) or hydrocodone/acetaminophen ([place]/Vicodin) be cautious when taking additional tylenol. No [...] pain. -Abdominal distention. documented in this encounter [facility] Work Phone: History of Present illness Narrative [...] be monitored and followed by the diet donor center technician. SHANTELLE Verduzco Department of Surgery - [...] plan of care as documented by the resident/MICROBIOLOGY TEACHER/MEDICAL EXAMINER/PA, unless otherwise noted. Please do not hesitate to contact me/us if you have any questions or concerns. Brad Gama MD FACS Physical Therapy Facility/Department: [facility] Initial Assessment NAME: Neeraj [...] Ambulation Assistance: Independent Transfer Assistance: Independent Active Radiological Technologist: Yes Cognition Cognition Overall Cognitive Status: WFL [...] Initially in place: No G-Code OutComes Score [facility] Inpatient Mobility Raw Score : 24 (09/25/20 1025) [facility] Inpatient T-Scale Score : 61.14 (09/25/20 1025) Mobility Inpatient CMS 0-100% Score: 0 (09/25/20 1025) Mobility Inpatient [facility] G-Code Modifier : CH (09/25/20 1025) Goals [...] solution 1 ampule, 1 ampule, Inhalation, Q4H OR polyethylene glycol (GLYCOLAX) packet 17 g, 17 g, Oral, Daily senna (SENOKOT) tablet 8.6 mg, 1 tablet, Oral, Nightly acetaminophen (TYLENOL) tablet 1,000 mg, 1,000 mg, Oral, TID naloxone (NARCAN) injection 0.4 mg, 0.4 mg, Intravenous, PRN HYDROmorphone (DILAUDID) 30 mg in sodium chloride 0.9 % 30 mL AGENT BASED MODELER, , Intravenous, Continuous HYDROmorphone (DILAUDID) injection 0.5 [...] medications per pain management team -Transfer to [address] Associated attestation - Brad Gama MD - 09/25/2020 12:11 PM EDT I independently saw and evaluated the patient - including reviewing the labs, imaging studies, and available documentation. I agree with the findings and plan of care as documented by the resident/MICROBIOLOGY TEACHER/MEDICAL EXAMINER/PA, unless otherwise noted. Please do not hesitate to contact me/us if you have any questions or concerns. Brad Gama MD FACS Belongings taken to pt admit room U_[address] Bethany Ernestine HUYNH documented in this encounter [facility] Work Phone: History of Present illness Narrative 09-20-2020 Margareth Lou APRN - PULP REFINER OPERATOR - 09/20/2020 2:00 PM EDT Note Date & Type Note Facility 09-20-2020 History of Present illness Narrative Received notification per lab- CBC and A1C clotted Ordered repeat DOS. documented in this encounter [facility] Work Phone: Hospital Discharge instructions 09-20-2020 InstructionsAttachments Note Date & Type Note Facility 09-20-2020 Hospital Discharge instructions Eva Servin RN - 09/20/2020 Please bring your CPAP/BiPAP device, mask, and equipment with you on the day of surgery. Do not bring water for your machine, it will be provided.Shower with and antibacterial soap such as Dial or Safeguard. Please bring your [facility] [employer] [place] [facility] Information folder on the day of [...] through Care Everywhere.VATS (Video-Assisted Thoracoscopic Surgery): Post-op ([place]ah[place]ian)Thoracoscopic Sympathectomy: Pre-op ([place]ahamian)Thoracotomy: Post-op ([place]ahamian)VATS (Video-Assisted Thoracoscopic Surgery): Pre-op ([place]ahamian)documented in this encounter [facility] Work Phone: Evaluation note Note Date & Type Note Facility documented in this encounter [facility] Work Phone: Evaluation note Note Date & Type Note Facility documented in this encounter [facility] Work Phone: Evaluation note Note Date & Type Note Facility Evaluation note There may be informa tion available, but it has not been provided by the sender. [facility] Work Phone: Instructions Note Date & Type Note Facility [facility] Work Phone: Summary Purpose Family History No [...] effusion Procedures EKG 12 lead Marielena Umanzor, FUR WEIGHER - PULP REFINER OPERATOR [address] [address] Chief Complaint Chief Complaint Description Start Date bilateral hand pain Preliminary chief co mplaint data, not yet signed by the author as of Additional Source Comments (unrecognized sect ion and content) No Status Records FoundNo Status Records Found INFORMATION SOURCE (unrecogn ized section and content) DATE CREATED AUTHOR AUTHOR'S ORGANIZ ATION 08/30/2021 [facility] Ordered Prescriptions (unrec ognized [...] BE BASED ON THE PRIMARY CLINICAL RECORDS. [employer] [facility]. provides no warranty or guarantee of the accuracy or completeness of information in this document.
[2023-06-26 18:49] LABS: ALB/GLOB Ratio 1.1 RATIO (0.9-2.4); AST(SGOT) 15 U/L (15-37); Alanine Aminotransfer ALT/SGPT 23 U/L (16-61); Albumin, Serum 3.9 g/dL (3.2-5.0); Alkaline Phosphatase 73 U/L (45-117); Anion Gap 7 (5-15); BUN 23 mg/dL (7-18); BUN/Creat Ratio 20.9 RATIO (10-20); Calcium,Total 9.3 mg/dL (8.5-10.1); Chloride 108 mmol/L (98-107); Cholesterol 151 mg/dL (200); EST Glomerular Filtration Rate 70 mL/min (>60); Est Glom Filt Rate - Afr Amer 84 mL/min (>60); Globulin 3.4 g/dL (2.2-4.2); Glucose 89 mg/dL (74-106); High Density Lipoprotein 52 mg/dL; Protein, Total 7.3 g/dL (6.4-8.2); Sodium Level 141 mmol/L (136-145); Thyroid Stim Hormone (TSH) 2.69 uIU/mL (0.358-3.74); Triglycerides 154 mg/dL; Uric Acid 3.8 mg/dL (3.5-7.2); Very Low Density Lipoprotein 31 mg/dL (5-40)
== END | disposition home or self-care (01) ==
LOC: MFPLAB 16:55
PROVIDERS: PCP Family Medicine; Visit Provider Family Medicine
DX: I10 Essential (primary) hypertension (principal); M10.9 Gout, unspecified
CPT/HCPCS: 36415; 80053; 80061; 81001; 84443; 84550; 85025

== ENCOUNTER → 2023-09-04 | Outpatient (CLI) | payer MEDICARE, OTHER, SELFPAY ==
--- NOTE | 2023-09-04 16:11 | RAD_ITS ---
STUDY: X-RAY CHEST REASON FOR EXAM: Male, 73 years old. COUGH TECHNIQUE: PA and lateral COMPARISON: None. FINDINGS: Minor discoid atelectasis or scarring in both lower lobes.. [Blunted right costophrenic angle consistent with pleural thickening although cannot exclude tiny effusion. Normal size heart. Normal mediastinum and sandra. Normal visualized pulmonary arteries. Mildly calcified aortic arch and descending thoracic aorta. Dorsal spine demonstrates mild spondylosis. Normal visualized ribs, clavicles, and shoulders. There is no demonstrated abnormality of the visualized soft tissue structures of the upper abdomen. RAD/Chest PA and Lateral IMPRESSION: Minor bibasilar discoid atelectasis or scarring in the lower lobes and possible tiny right pleural effusion. Electronically Signed: Jason Johnson MD at 22:21 EDT ,
== END | disposition home or self-care (01) ==
LOC: MTRAD 16:10
PROVIDERS: PCP Family Medicine; Referring Provider Internal Medicine Pulmonary Disease; Visit Provider Internal Medicine Pulmonary Disease
DX: J30.9 Allergic rhinitis, unspecified (principal); R05.9 Cough, unspecified
CPT/HCPCS: 71046

== ENCOUNTER → 2023-12-25 | Outpatient (CLI) | payer MEDICARE, OTHER, SELFPAY ==
[2023-12-25 10:48] LABS: Bacteria 0 SEEN /hpf (None Seen); Mucous, Urine 0 SEEN /hpf (<or=2+); Red Blood Cells-Urine 0 SEEN /hpf (0-5); Squamous Epithelial Cells - UA 0 SEEN /hpf (0-5); White Blood Cells 0 SEEN /hpf (0-5)
[2023-12-25 11:19] LABS: Absolute Lymphocyte Count 1.51 X10^3/uL (0.83-4.51); Absolute Neutrophil Count 3.7 X10^3/uL (2.0-7.7); Basophil% 1.6 % (0-1); Eosinophil# 0.17 X10^3/uL; Eosinophils% 2.8 % (0-5); Hematocrit 41.5 % (40-54); Lymphocyte # 1.51 X10^3/ul (0.83-4.51); Lymphocyte % 24.6 % (19-41); Mean Corp Hgb Conc 33.7 g/dL (32-36); Mean Corpuscular Hgb 30.9 pg (27.0-32.0); Mean Corpuscular Volume 91.6 fL (80-94); Mean Platelet Vol. 8.8 fl (6.2-12.0); Monocyte# 0.62 X10^3/uL; Monocyte% 10.1 % (0-10); NRBC Flagged by Analyzer 0 % (0-5); Neutrophil % 60.2 % (47-70); Platelet Count 215 K/mm3 (150-450); RBC Distribution Width CV 14.3 % (11.6-14.6); RBC Distribution Width SD 48.2 fl (35.1-43.9); Red Blood Count 4.53 M/mm3 (4.6-6.2); White Blood Count 6.1 K/mm3 (4.4-11.0)
[2023-12-25 11:27] LABS: Color, Urine Yellow (Yellow); Glucose, Dipstick Normal (Normal); Ketone-Dipstick Negative (Negative); Leukocyte Esterase-Dipstick 25 /ul (Negative); Nitrite-Dipstick Negative (Negative); Occult Blood-Urine Negative /ul (Negative); Protein-Dipstick 15 mg/dl (Negative); Specific Gravity, Urine 1.015 (1.002-1.030); Urine Bilirubin Dipstick Negative (Negative); Urine Clarity Clear (Clear); Urine Urobilinogen Normal (Normal)
== END | disposition home or self-care (01) ==
LOC: LAB 10:23
PROVIDERS: PCP Family Medicine; Referring Provider Family Medicine; Visit Provider Family Medicine
DX: I10 Essential (primary) hypertension (principal)
CPT/HCPCS: 36415; 81001; 85025

== ENCOUNTER → 2024-01-07 | Outpatient (CLI) | payer MEDICARE, OTHER, SELFPAY ==
[2024-01-07 18:12] LABS: ALB/GLOB Ratio 1.2 RATIO (0.9-2.4); AST(SGOT) 15 U/L (15-37); Alanine Aminotransfer ALT/SGPT 20 U/L (16-61); Albumin, Serum 3.9 g/dL (3.2-5.0); Alkaline Phosphatase 82 U/L (45-117); Anion Gap 5 (5-15); BUN 23 mg/dL (7-18); BUN/Creat Ratio 18.3 RATIO (10-20); Calcium,Total 9.1 mg/dL (8.5-10.1); Chloride 107 mmol/L (98-107); Cholesterol 135 mg/dL (200); Creatinine, Serum 1.26 mg/dL (0.70-1.30); EST Glomerular Filtration Rate 60 mL/min (>60); Est Glom Filt Rate - Afr Amer 72 mL/min (>60); Globulin 3.2 g/dL (2.2-4.2); Glucose 84 mg/dL (74-106); High Density Lipoprotein 56 mg/dL; Protein, Total 7.1 g/dL (6.4-8.2); Sodium Level 138 mmol/L (136-145); Triglycerides 118 mg/dL; Uric Acid 4.1 mg/dL (3.5-7.2); Very Low Density Lipoprotein 24 mg/dL (5-40)
== END | disposition home or self-care (01) ==
LOC: MFPLAB 15:46
PROVIDERS: PCP Family Medicine; Visit Provider Family Medicine
DX: E78.5 Hyperlipidemia, unspecified (principal); M10.9 Gout, unspecified
CPT/HCPCS: 36415; 80053; 80061; 84550

== ENCOUNTER → 2024-01-25 | Outpatient (CLI) | payer MEDICARE, OTHER, SELFPAY ==
--- NOTE | 2024-01-25 14:52 | VDLE_ITS ---
Reason For Study: BLE Edema / Venous Incompetence RIGHT LEFT CFV is compressible, spontaneous, phasic, CFV is compressible, spontaneous, phasic, competent and demonstrates normal competent, and demonstrates normal augmentation. augmentation. FV is compressible, spontaneous, phasic, FV is compressible, spontaneous, phasic, competent and demonstrates normal competent and demonstrates normal augmentation. augmentation. POP V is compressible, spontaneous, phasic, POP V is compressible, spontaneous, phasic, competent and demonstrates normal competent and demonstrates normal augmentation. augmentation. T/P Trunk is compressible. T/P Trunk is compressible. PTV is compressible. PTV is compressible. RT PerV is compressible. LT PerV is compressible. SFJ is competent and measures 0.58 cm. SFJ is competent and measures 0.68 cm. GSV proximal thigh measures 0.35 x 0.40 cm. GSV proximal thigh measures 0.35 x 0.36 cm. GSV at knee measures 0.31 x 0.28 cm. GSV at knee measures 0.23 x 0.25 cm. GSV above knee is competent. GSV above knee is INCOMPETENT for greater GSV below knee is INCOMPETENT for greater than 0.5 seconds. than 0.5 seconds. GSV below knee is competent. SSV proximal calf is competent and measures SSV proximal calf is competent and measures 0.16 x 0.20 cm. 0.28 x 0.28 cm. Perforating vessel Mid Calf is INCOMPETENT for greater than 0.5 seconds and measures approximately 0.29cm. Procedure Exam performed in department. This is a venous duplex using B-mode, color flow and spectral Doppler. The exam was diagnostic. Patient was scanned in reverse Trendelenburg position during reflux assessment. VL/Venous Duplex US - Harley Extrem Interpretation Summary Deep veins of the bilateral lower extremities are patent and compressible segme ntally. There is no evidence of bilateral lower extremity deep vein thrombosis. The bilateral great saphenous veins appear patent and compressible segmentally. Positive for relux in the right great saphenous vein below the knee, and mid ca lf perforating vein. Positive for reflux in the left great saphenous vein above the knee. Ordering Physician: Seng Willoughby Referring Physician: Seng Willoughby Performed By: Abdi Calderon RVT
== END | disposition home or self-care (01) ==
LOC: CVS 14:50
PROVIDERS: PCP Family Medicine; Referring Provider Family Medicine; Visit Provider Family Medicine
DX: I87.2 Venous insufficiency (chronic) (peripheral) (principal); R60.0 Localized edema
CPT/HCPCS: 93970

== ENCOUNTER → 2024-03-14 | Outpatient (CLI) | payer MEDICARE, OTHER, SELFPAY ==
[2024-03-14 13:55] LABS: PSA,Total- Diagnostic 2.78 ng/mL (0.0-4.0)
--- OUTSIDE RECORDS SUMMARY | 2024-03-14 15:58 | XMS RPT_ITS | CCD ---
Author Organization [facility] Care Team Providers Care Ip Litigation Paralegal Name Role Phone SELF, SELF Referring Unavailable GEORGINAA MCFADDEN Primary Care Unavailable Georgiana Florez Primary [...] Fever, Fever >100.5 F (38 C), Starting Thu09/24/20 at 1617 Maximum dose of acetaminophen is 4000 mg from all sources in 24 hours. Post-op Start: 09-24-2020 End: 09-24-2020 acetaminophen (TYLENOL) tabl et 1,000 mg albuterol 0.833 mg/ml / ipratropium bromide 0.167 mg/ml inhalation solution (1 source) Anticholinergic, beta2-Adrenergic Agonist Start: 09-24-2020 1 ampule, Inhalation, EVERY 4 HOURS WHILE AWAKE, First dose on Thu09/24/20 at 2000 allopurinol 300 mg oral tablet (4 sources) Xanthine Oxidase Inhibitor Start: 09-25-2020 allopurinol (ZYLOPRIM) tablet 300 mg atorvastatin 20 mg oral tablet (4 sources) HMG-CoA Reductase Inhibitor Start: 09-24-2020 take 10 mg by mouth once daily 10 mg, Oral, NIGHTLY, First dose on Thu09/24/20 at 2100 take 1 tablet by mouth once traci y ATORVASTATIN CALCIUM 10 MG TABS 1 tablet by mouth once a day atorvastatin [id number] Terena Pena RN hydroCHLOROthiazide 25 mg oral tablet (3 sources) Thiazide Diuretic Start: 09-26-2020 take 25 mg by mouth once daily 25 mg, Oral, DAILY, First dose on Thu09/26/20 at 0900 Multiple Vitamins-Minerals (THERAPEUTIC MULTIVITAMIN-MINERALS) tablet (2 sources) take 1 tablet by mouth once daily Multiple Vitamins-Minerals (THERAPEUTIC MULTIVITAMIN-MINE RALS) tablet Take 1 tablet by mouth daily CENTRUM SILVER 0 Active oxyCODONE hydrochloride 5 mg oral tablet (2 sources) Opioid Agonist Start: 09-26-2020 End: 10-01-2020 oxyCODONE (ROXICODONE) 5 MG immediate release tablet Indications: S/P thoracotomy Take 1 tablet by mouth every 6 hours as needed for Pain for up to 5 days. Intended supply: 5 days. Take lowest dose possible to manage pain 20 tablet 0 09/26/2020 10/01/2020 Active Start: 09-25-2020 oxyCODONE (KATELYN ICODONE) immediate release tablet 5 mg pantoprazole 40 mg delayed release oral tablet (1 source) Proton Pump Inhibitor Start: 09-25-2020 take 40 mg by mouth once daily before breakfast 40 mg, Oral, DAILY BEFORE BREAKFAST, First dose on Thu09/25/20 at 0700 Do not crush or break. Substituted for Omeprazole (PRILOSEC). polyethylene glycol 3350 01451 mg powder for oral solution (1 source) Osmotic Laxative Start: 09-24-2020 17 g, Oral, DAILY, First dose on Thu09/24/20 at 1645 psyllium 3400 mg powder for oral suspension (2 sources) take 1 dose by mouth once daily psyllium (KONSYL) 28.3 % PACK Take 1 packet by mouth daily 0 Active sennosides, fdc 8.6 mg oral tablet (1 source) Start: 09-24-2020 take 1 tablet by mouth once daily for constipation 8.6 mg (1 tablet), Oral, NIGHTLY, First dose on Thu09/24/20 at 2100 First line therapy for constipation 3 ml sodium chloride 9 mg/ml injection (3 sources) Start: 09-24-2020 10 mL, Intravenous, EVERY 12 HOURS SCHEDULED (2 times per day), First dose on Thu09/24/20 at 2100 Start: 09-24-2020 take 25 mL intraveno usly every hour as needed 25 mL, Intravenous, at 100 mL/hr, PRN, If patient receiving piggyback infusions without ordered maintenance IV fluids or with frequent/long duration piggyback infusions, Starting Thu09/24/20 at 1617 Administer at the same rate as the piggyback being infused. Start: 09-24-2020 take 10 mL intravenously once 10 mL, Intravenous, PRN, Line Care, Starting Thu09/24/20 at 1617 After every IV line use Completed/Discontinued Medications Medication Drug Class(es) Dates Sig (Normalized) Sig (Original) calcium chloride 0.0014 meq/ml / potassium chloride 0.004 meq/ml / sodium chloride 0.103 meq/ml / sodium lactate 0.028 meq/ml injectable solution (2 sources) Start: 09-24-2020 End: 09-25-2020 Intravenous, at 75 mL/hr, CONTINUOUS, Starting Thu09/24/20 at 1545 Start: 09-24-2020 End: 09-24-2020 lactated ringers infusion celecoxib 200 mg oral capsule (1 source) Nonsteroidal Anti-inflammatory Drug Start: 09-24-2020 End: 09-24-2020 celecoxib (CELEBREX) capsule 200 mg Start: 09-24-2020 End: 09-24-2020 celecoxib (CELEBREX) capsule 200 mg famotidine 20 mg oral tablet (1 source) Histamine-2 Receptor Antagonist Start: 09-24-2020 End: 09-24-2020 famotidine (PEPCID) tablet 20 mg Start: 09-24-2020 End: 09-24-2020 famotidine (PEPCID) tablet 2 0 mg gabapentin 100 mg oral capsule (1 source) Anti-epileptic Agent Start: 09-24-2020 End: 09-24-2020 gabapentin (NEURONTIN) capsule 100 mg Start: 09-24-2020 End: 09-24-2020 gabapentin (NEURONTIN) capsu le 100 mg hydroCHLOROthiazide 25 mg / triamterene 37.5 mg oral tablet (1 source) Potassium-sparing Diuretic, Thiazide Diuretic take 1 tablet by mouth once daily TRIAMTERENE-HCTZ 37.5-25 MG TABS 1 tablet by mouth once a day triamterene-hydrochlorothiazid [id number] Austyn Pena RN rohdzczu-pdx-mm-lycope n-lutein (1 source) take 1 tablet by mouth once daily CENTRUM SILVER ADULT 50+ TABS 1 tablet by mouth once a day iaysqugo-wni-ps-lycopen-lutein [id number] Austyn Pena RN omeprazole 20 mg delayed release oral tablet (3 sources) Proton Pump Inhibitor take 1 tablet by mouth once daily OMEPRAZOLE MAGNESIUM 20 MG TBEC 1 tablet by mouth once a day omeprazole magnesium [id number] Austyn Pena RN take 1 capsule by mouth once kelly ly omeprazole (PRILOSEC) 20 MG delayed release capsule Take 20 mg by mouth daily 0 Active sildenafil 100 mg oral tablet (3 sources) Phosphodiesterase 5 Inhibitor VIAGRA 100 MG TABS 1 tablet by mouth as directed as needed sildenafil [id number] Austyn Pena RN tamsulosin hydrochloride 0.4 mg oral capsule (1 source) alpha-Adrenergic Fan take 1 capsule by mouth once daily FLOMAX 0.4 MG CAPS 1 capsule by mouth once a day tamsulosin [id number] Austyn Pena RN Problems Active Problems Problem Classification Problem Date [...] Results Test Name Value Interpretation Reference Range Facility CR Chest PA/LATon 08-27-2021 CR Chest PA/LAT Patient Name: SUZETTE PALOMINO Diagnostic Radiology ACCESSION EXAM DATE/TIME PROCEDURE ORDERING PROVIDER [id number] 08/27/2021 14:19 EDT CR Chest PA and LAT MELVA MCGOVERN, LISSETTE Quinonez CPT code 89116 Reason For Exam (CR Chest PA and LAT) right sided crepitus/ assess for rib fx or displacement Report CHEST, PA and LATERAL: INDICATION: Right-sided crepitus COMPARISON: No previous studies are available for comparison. PA and lateral views of the chest were obtained. The heart is normal in size. The mediastinal silhouette is normal. There is scarring of the right base with left basal atelectasis. No effusions or acute infiltrates are present. There is mild bibasal pleural thickening. Arthritic changes of the spine and shoulders are present. IMPRESSION: Scarring of the right base and left basal atelectasis. No acute process. Report Dictated on Final Dictated: 08/27/2021 2:48 pm Dictating Physician: DO CHILDRESS ALFRED Signed Date and Time: 08/27/2021 2:49 pm Signed by: DO CHILDRESS ALFRED Transcribed Date and Time: 08/27/2021 2:48 Normal [facility] Clinical Lists Update: Prelo ad Extendedon 08-07-2021 Tobacco smoking status Tobacco smoking status Invalid Interpretation Code [facility] Work Phone: Clinical Summary: Chase ahmet 08-07-2021 MC25 OP Hand Invalid Interpretation Code [facility] Work Phone: Clinical Summary: Scanned Hi story Summaryon 08-07-2021 adl form etoh alcohol performance wine Invalid Interpretation Code [facility] Work Phone: Beta HCG ( test) Ql (U) Never Invalid Interpretation Code [facility] Work Phone: brother(s) of patient alive or I do not have any brothers. My brother(s)' health history is unknown. Invalid Interpretation Code [facility] Work Phone: cause of , father cardiac arrest Invalid Interpretation Code [facility] Work Phone: cause of , mother child Invalid Interpretation Code [facility] Work Phone: consumes three or more drinks of alcohol (beer, wine, liquor) daily or almost daily 1 drink per day Invalid Interpretation Code [facility] Work Phone: Data entered by patient exercise frequency 5 days per week Invalid Interpretation Code [facility] Work Phone: Data entered by patient exercise type walking, cycling, other Invalid Interpretation Code [facility] Work Phone: data entered by patient, alcohol (ethanol or ETOH) use Yes Invalid Interpretation Code [facility] Work Phone: Data entered by patient, allergy list I don't have any Drug Allergies Invalid Interpretation Code [facility] Work Phone: data entered by patient, drug (of abuse) use No Invalid Interpretation Code [facility] Work Phone: data entered by patient, Employer Name retired Invalid Interpretation Code [facility] Work Phone: data entered by patient, exercise history Yes Invalid Interpretation Code [facility] Work Phone: data entered by patient, father's medical history Gout Heart disease High blood pressure Kidney disease Invalid Interpretation Code [facility] Work Phone: Data entered by patient, history of past surgeries Abdominal Surgery Appendectomy Hernia repair Thoracic spine surgery other Invalid Interpretation Code [facility] Work Phone: data entered by patient, maternal family history unknown My mother's health history is unknown Invalid Interpretation Code [facility] Work Phone: Data entered by patient, medication list vrcpphfdjpx-[id number]-da claire atorvastatin crisjzh-52-9-daily hydrochlorothiazide and ltegfezvkrj-16-3-kelly ly sorwzjubbk-37-0-traci y flomax-.4-1-daily centrum pgrwjx-5-4-daily uumlzy-274-0-ss needed Invalid Interpretation Code [facility] Work Phone: data entered by patient, past medical history GERD Gout High blood pressure High cholesterol Irritable bowel syndrome Sleep apnea Invalid Interpretation Code [facility] Work Phone: data entered by patient, social history, current smoker former smoker Invalid Interpretation Code [facility] Work Phone: data entered by patient, social history, marital status Invalid Interpretation Code [facility] Work Phone: father of patient is alive or Invalid Interpretation Code [facility] Work Phone: Housing Type: apartment, house, alf, trailer, none house Invalid Interpretation Code [facility] Work Phone: housing unit size (asthma environmental history, housing) (from single family to don't know) 2 floors Invalid Interpretation Code [facility] Work Phone: medical history of patient's sister Cancer COPD Invalid Interpretation Code [facility] Work Phone: mother of patient is alive or Invalid Interpretation Code [facility] Work Phone: Number of dependent children No Invalid Interpretation Code [facility] Work Phone: Basic Metabolic Panelon 09-15 Calcium [Mass/Vol] 9.5 mg/dL Normal 8.4-10.4 [facility] Comment on above: Performed By: #### B MP3M ####[address] [place] [address] Anion gap [Moles/Vol] 10 mmol/L Normal 3-13 [facility] Comment on above: Performed By: #### B MP3M ####[address] [place], [place] CO2 [Moles/Vol] 27 mmol/L Normal 22-30 [facility] Comment on above: Performed By: #### B MP3M ####[address] [place], [place] Creatinine [Mass/Vol] 0.87 mg/dL Normal 0.52-1.25 [facility] Comment on above: Performed By: #### B MP3M ####[address] [place], [place] GFR/1.73 sq M.predicted among blacks MDRD (S/P/Bld) [Vol rate/Area] mL/min/{1.73_m2} Normal >60 [facility] Comment on above: Performed By: #### B MP3M ####[address] [place], [place] GFR/1.73 sq M.predicted among non-blacks MDRD (S/P/Bld) [Vol rate/Area] 87.0 mL/min/{1.73_m2} Normal >60 [facility] Comment on above: Result Comment: KDIG O guidelines provide the following GFR categories: Stage GFR(ml/min/1.73 m2) Terms G1 >=90 Normal or high G2 60-89 Mildly decreased* G3a 45-59 Mildly to moderately decreased G3b 30-44 Moderately to severely decreased G4 15-29 Severely decreased G5 <15 Kidney failure *Relative to young adult level. In the absence of evidence of kidney damage, neither GFR category G1 nor G2 fulfill the criteria for CKD. The CKD-EPI equation is validated in individuals 18 years of age and older. Currently the best equation for estimating glomerular filtration rate (GFR) from serum creatinine in children is the Bedside Mann equation. It is less accurate in patients with extremes of muscle mass, restriction of dietary protein, ingestion of creatine, extra-renal metabolism of creatinine, or treatment with medications that affect renal tubular creatinine secretion. Performed By: #### B MP3M ####[facility] [id number] [place], [place] Glucose [Mass/Vol] 90 mg/dL Normal 70-100 [facility] Comment on above: Performed By: #### B MP3M ####[facility] [place] [address] Urea nitrogen [Mass/Vol] 22 mg/dL High 7-20 [facility] Comment on above: Performed By: #### B MP3M ####[facility] [place] [address] Chloride [Moles/Vol] 103 mmol/L Normal 98-107 [facility] Comment on above: Performed By: #### B MP3M ####[facility] [place] [address] Potassium [Moles/Vol] 4.4 mmol/L Normal 3.5-5.1 [facility] Comment on above: Result Comment: Slig htly hemolysed, interpret with caution. Performed By: #### B MP3M ####[facility] [place] [address] Sodium [Moles/Vol] 140 mmol/L Normal 135-145 [facility] Comment on above: Performed By: #### B MP3M ####[facility] [place] [address] Basic Metabolic Panel w/ Ref kenya to MGOrdered By: Brad Moralez on 09-26-2020 Anion gap [Moles/Vol] 10 mmol/L 3 - 13 mmol/L [facility] Work Phone: Calcium [Mass/Vol] 9.5 mg/dL 8.4 - 10. 4 mg/dL [facility] Work Phone: Chloride [Moles/Vol] 103 mmol/L 98 - 10 7 mmol/L [facility] Work Phone: CO2 [Moles/Vol] 27 mmol/L 22 - 30 mmol/L [facility] Work Phone: Creatinine [Mass/Vol] 0.87 mg/dL 0.52 - 1.25 mg/dL [facility] Work Phone: EGFR IF NonAfrican [place] 87.0 mL/min >60 [facility] Work Phone: Comment on above: KDIGO guidelines pro vide the following GFR categories: Stage GFR(ml/min/1.73 m2) Terms G1 >=90 Normal or high G2 60-89 Mildly decreased* G3a 45-59 Mildly to moderately decreased G3b 30-44 Moderately to severely decreased G4 15-29 Severely decreased G5 <15 Kidney failure *Relative to young adult level. In the absence of evidence of kidney damage, neither GFR category G1 nor G2 fulfill the criteria for CKD. The CKD-EPI equation is validated in individuals 18 years of age and older. Currently the best equation for estimating glomerular filtration rate (GFR) from serum creatinine in children is the Bedside Mann equation. It is less accurate in patients with extremes of muscle mass, restriction of dietary protein, ingestion of creatine, extra-renal metabolism of creatinine, or treatment with medications that affect renal tubular creatinine secretion. GFR/1.73 sq M.predicted among blacks MDRD (S/P/Bld) [Vol rate/Area] mL/min/{1.73_m2} >60 mL/min [facility] Work Phone: Glucose [Mass/Vol] 90 mg/dL 70 - 100 mg/dL [facility] Work Phone: Interpretation and review of laboratory results Abnormal [facility] Work Phone: Potassium [Moles/Vol] 4.4 mmol/L 3.5 - 5.1 mmol/L [facility] Work Phone: Comment on above: Slightly hemolysed, interpret with caution. Sodium [Moles/Vol] 140 mmol/L 135 - 145 mmol/L [facility] Work Phone: Urea nitrogen (BldV) [Mass/Vol] 22 mg/dL High 7 - 20 mg/dL [facility] Work Phone: Test Performed by [employer], [address] [place] [id number] [facility] [facility] [facility] Work Phone: CBCOrdered By: Brad Moralez on 09-26-2020 Hematocrit (Bld) [Volume fraction] 41.5 % 40.0 - 52.0 % [facility] Work Phone: Hemoglobin.gastrointes tinal spec 1 Ql (Stl) 13.8 g/dL 13.0 - 18.0 g/dL [facility] Work Phone: Interpretation and review of laboratory results Abnormal [facility] Work Phone: MCH (RBC) [Entitic mass] 27.9 pg 26.0 - 34.0 pg [facility] Work Phone: MCHC (RBC) [Mass/Vol] 33.4 % 32.0 - 36.0 % [facility] Work Phone: MCV (RBC) [Entitic vol] 83.7 fL 80.0 - 98.0 fL [facility] Work Phone: Platelet distribution width (Bld) [Ratio] 16.4 % High 11.5 - 14.5 % [facility] Work Phone: Platelet mean volume (Bld) [Entitic vol] 7.0 fL Low 7.4 - 10.4 fL [facility] Work Phone: Platelets (Bld) [#/Vol] 359 10*3/uL 140 - 440 10*3/uL [facility] Work Phone: RBC (Bld) [#/Vol] 4.96 10*6/uL 4.40 - 5.9 0 10*6/uL [facility] Work Phone: WBC (Bld) [#/Vol] 9.9 10*3/uL 3.6 - 10.7 10*3/uL [facility] Work Phone: Test Performed by [facility], [address] [place] [id number] [facility] Work Phone: CR Chest Portableon 09-27-19 CR Chest Portable Patient Name: SUZETTE PALOMINO Diagnostic Radiology ACCESSION EXAM DATE/TIME PROCEDURE ORDERING PROVIDER [id number] 09/26/2020 07:14 EDT CR Chest Portable MD MORALEZ KEVIN CPT code 80465 Reason For Exam (CR Chest Portable) s/p lung decortication Report CHEST - PORTABLE: CLINICAL INDICATION: Status post right lung surgery/decorticatio n TECHNIQUE: Portable AP COMPARISON: One day ago FINDINGS/IMPRESSION: Lines, tubes, and devices: Right basilar chest tube with its tip in the subpleural right mid lung. Cardiomediastinal silhouette: Heart size is stable. Tortuosity of the thoracic aorta appears more prominent likely due to patient rotation Lungs/Pleura: Hazy confluent opacities involving the right costophrenic angle, right lung base and right perihilar region appear slightly improved. Left basilar opacities likely reflect atelectasis. No pneumothorax. Osseous structures/soft tissues: Osseous structures are unchanged in appearance with postsurgical changes involving right mid/lower rib as before. Subcutaneous gas along the right lateral chest wall tracked into the right axilla and base of the neck on the right similar to possibly slightly progressed. Report Dictated on Final Dictated: 09/26/2020 9:02 am Dictating Physician: MD CALVILLO VLADIMIR Signed Date and Time: 09/26/2020 9:05 am Signed by: MD CALVILLO VLADIMIR Transcribed Date and Time: 09/26/2020 9:02 Normal [facility] Hemogramon 09-26-2020 Erythrocyte distribution width (RBC) [Ratio] 16.4 % High 11.5-14.5 [facility] Comment on above: Performed By: #### H EMOG #### [address] Hematocrit (Bld) [Volume fraction] 41.5 % Normal 40.0-52.0 [facility] Comment on above: Performed By: #### H EMOG #### [address] [place], [place] Hemoglobin (Bld) [Mass/Vol] 13.8 g/dL Normal 13.0-18.0 [facility] Comment on above: Performed By: #### H EMOG #### [address] MCH (RBC) [Entitic mass] 27.9 pg Normal 26.0-34.0 [facility] Comment on above: Performed By: #### H EMOG #### [address] [place], [place] MCHC 33.4 % Normal 32.0-36.0 [facility] Comment on above: Performed By: #### H EMOG #### [facility] [address] [place], [place] MCV (RBC) [Entitic vol] 83.7 fL Normal 80.0-98.0 [facility] Comment on above: Performed By: #### H EMOG #### [address] [place], [place] Platelet mean volume (Bld) [Entitic vol] 7.0 fL Low 7.4-10.4 [facility] Comment on above: Performed By: #### H EMOG #### [address] [place], [place] Platelets (Bld) [#/Vol] 359 10*3/uL Normal 140-440 [facility] Comment on above: Performed By: #### H EMOG #### [address] [place], [place] RBC (Bld) [#/Vol] 4.96 10*6/uL Normal 4.40-5.90 [facility] Comment on above: Performed By: #### H EMOG #### [address] [place], [place] WBC (Bld) [#/Vol] 9.9 10*3/uL Normal 3.6-10.7 [facility] Comment on above: Performed By: #### H EMOG #### [address] [place], [place] XR CHEST PORTABLEOrdered By: Brad Moralez on 09-26-2020 Patient Name: SUZETTE PALOMINO Diagnostic Radiology ACCESSION EXAM DATE/TIME PROCEDURE ORDERING PROVIDER [id number] 09/26/2020 07:14 EDT CR Chest Portable MD MORALEZ KEVIN CPT code 85171 Reason For Exam (CR Chest Portable) s/p lung decortication Report CHEST - PORTABLE: CLINICAL INDICATION: Status post right lung surgery/decorticatio n TECHNIQUE: Portable AP COMPARISON: One day ago FINDINGS/IMPRESSION: Lines, tubes, and devices: Right basilar chest tube with its tip in the subpleural right mid lung. Cardiomediastinal silhouette: Heart size is stable. Tortuosity of the thoracic aorta appears more prominent likely due to patient rotation Lungs/Pleura: Hazy confluent opacities involving the right costophrenic angle, right lung base and right perihilar region appear slightly improved. Left basilar opacities likely reflect atelectasis. No pneumothorax. Osseous structures/soft tissues: Osseous structures are unchanged in appearance with postsurgical changes involving right mid/lower rib as before. Subcutaneous gas along the right lateral chest wall tracked into the right axilla and base of the neck on the right similar to possibly slightly progressed. Report Dictated on --- Final --- Dictated: 09/26/2020 9:02 am Dictating Physician: MD CALVILLO VLADIMIR Signed Date and Time: 09/26/2020 9:05 am Signed by: MD CALVILLO VLADIMIR Transcribed Date and Time: 09/26/2020 9:02 [facility] Work Phone: Stu, [facility] Incoming Radiology Results From [facility] - 09/26/2020 9:07 AM EDT Patient Name: SUZETTE PALOMINO Diagnostic Radiology ACCESSION EXAM DATE/TIME PROCEDURE ORDERING PROVIDER [id number] 09/26/2020 07:14 EDT CR Chest Portable MD MORALEZ KEVIN CPT code 07786 Reason For Exam (CR Chest Portable) s/p lung decortication Report CHEST - PORTABLE: CLINICAL INDICATION: Status post right lung surgery/decorticatio n TECHNIQUE: Portable AP COMPARISON: One day ago FINDINGS/IMPRESSION: Lines, tubes, and devices: Right basilar chest tube with its tip in the subpleural right mid lung. Cardiomediastinal silhouette: Heart size is stable. Tortuosity of the thoracic aorta appears more prominent likely due to patient rotation Lungs/Pleura: Hazy confluent opacities involving the right costophrenic angle, right lung base and right perihilar region appear slightly improved. Left basilar opacities likely reflect atelectasis. No pneumothorax. Osseous structures/soft tissues: Osseous structures are unchanged in appearance with postsurgical changes involving right mid/lower rib as before. Subcutaneous gas along the right lateral chest wall tracked into the right axilla and base of the neck on the right similar to possibly slightly progressed. Report Dictated on --- Final --- Dictated: 09/26/2020 9:02 am Dictating Physician: MD CALVILLO VLADIMIR Signed Date and Time: 09/26/2020 9:05 am Signed by: MD CALVILLO VLADIMIR Transcribed Date and Time: 09/26/2020 9:02 [facility] Work Phone: Basic Metabolic PanelOrdered By: Brad Moralez on 09-25-2020 Anion gap [Moles/Vol] 9 mmol/L Normal 3-13 [facility] Work Phone: Comment on above: Performed By: #### P HOS3, MG3, BMP3M, HEMOG #### [employer] [facility] [place] [address] Calcium [Mass/Vol] 9.2 mg/dL Normal 8.4-10.4 [facility] Work Phone: Comment on above: Performed By: #### P HOS3, MG3, BMP3M, HEMOG #### [employer] [facility] [place] [address] CO2 [Moles/Vol] 25 mmol/L Normal 22-30 [facility] Work Phone: Comment on above: Performed By: #### P HOS3, MG3, BMP3M, HEMOG #### [employer] [address] [place] [address] Glucose [Mass/Vol] 159 mg/dL High 70-100 [facility] Work Phone: Comment on above: Performed By: #### P HOS3, MG3, BMP3M, HEMOG #### [employer] [facility] [place] [address] Creatinine [Mass/Vol] 0.79 mg/dL Normal 0.52-1.25 [facility] [employer] Work Phone: Comment on above: Performed By: #### P HOS3, MG3, BMP3M, HEMOG #### [employer] [facility] [address] [place], [place] GFR/1.73 sq M.predicted among blacks MDRD (S/P/Bld) [Vol rate/Area] mL/min/{1.73_m2} Normal >60 [facility] Work Phone: Comment on above: Performed By: #### P HOS3, MG3, BMP3M, HEMOG #### [facility] [address] [address] [address] [place], [place] Potassium [Moles/Vol] 3.9 mmol/L Normal 3.5-5.1 [facility] Work Phone: Comment on above: Performed By: #### P HOS3, MG3, BMP3M, HEMOG #### [facility] [address] [address] [address] [place], [place] Sodium [Moles/Vol] 135 mmol/L Normal 135-145 [facility] Work Phone: Comment on above: Performed By: #### P HOS3, MG3, BMP3M, HEMOG #### [facility] [address] [address] [address] [place], [place] Chloride [Moles/Vol] 101 mmol/L Normal 98-107 [facility] Work Phone: Comment on above: Performed By: #### P HOS3, MG3, BMP3M, HEMOG #### [facility] [address] [address] [address] [place], [place] Basic Metabolic Panelon 05-1 Urea nitrogen [Mass/Vol] 19 mg/dL Normal 7-20 [facility] Comment on above: Performed By: #### P HOS3, MG3, BMP3M, HEMOG #### [facility] [address] [address] [address] [place], [place] eGFR OTHER > 90.0 Normal >60 [facility] Comment on above: Result Comment: KDIG O guidelines provide the following GFR categories: Stage GFR(ml/min/1.73 m2) Terms G1 >=90 Normal or high G2 60-89 Mildly decreased* G3a 45-59 Mildly to moderately decreased G3b 30-44 Moderately to severely decreased G4 15-29 Severely decreased G5 <15 Kidney failure *Relative to young adult level. In the absence of evidence of kidney damage, neither GFR category G1 nor G2 fulfill the criteria for CKD. The CKD-EPI equation is validated in individuals 18 years of age and older. Currently the best equation for estimating glomerular filtration rate (GFR) from serum creatinine in children is the Bedside Mann equation. It is less accurate in patients with extremes of muscle mass, restriction of dietary protein, ingestion of creatine, extra-renal metabolism of creatinine, or treatment with medications that affect renal tubular creatinine secretion. Performed By: #### P HOS3, MG3, BMP3M, HEMOG #### [employer] [address] [place] [phone] Basic Metabolic Panel w/ Ref kenya to MGOrdered By: Brad Moralez on 09-25-2020 EGFR IF NonAfrican [place] >90.0 >60 mL/min [employer] Work Phone: Comment on above: KDIGO guidelines pro vide the following GFR categories: Stage GFR(ml/min/1.73 m2) Terms G1 >=90 Normal or high G2 60-89 Mildly decreased* G3a 45-59 Mildly to moderately decreased G3b 30-44 Moderately to severely decreased G4 15-29 Severely decreased G5 <15 Kidney failure *Relative to young adult level. In the absence of evidence of kidney damage, neither GFR category G1 nor G2 fulfill the criteria for CKD. The CKD-EPI equation is validated in individuals 18 years of age and older. Currently the best equation for estimating glomerular filtration rate (GFR) from serum creatinine in children is the Bedside Mann equation. It is less accurate in patients with extremes of muscle mass, restriction of dietary protein, ingestion of creatine, extra-renal metabolism of creatinine, or treatment with medications that affect renal tubular creatinine secretion. Urea nitrogen (BldV) [Mass/Vol] 19 mg/dL 7 - 20 mg/dL [employer] Work Phone: CBCOrdered By: Brad Moralez on 09-25-2020 Hematocrit (Bld) [Volume fraction] 38.3 % Low 40.0 - 52.0 % [facility] Work Phone: Hemoglobin.gastrointes tinal spec 1 Ql (Stl) 13.2 g/dL 13.0 - 18.0 g/dL [facility] Work Phone: MCH (RBC) [Entitic mass] 27.7 pg 26.0 - 34.0 pg [facility] Work Phone: MCHC (RBC) [Mass/Vol] 34.5 % 32.0 - 36.0 % [facility] Work Phone: MCV (RBC) [Entitic vol] 80.3 fL 80.0 - 98.0 fL [facility] Work Phone: Platelet distribution width (Bld) [Ratio] 16.3 % High 11.5 - 14.5 % [facility] Work Phone: Platelet mean volume (Bld) [Entitic vol] 6.4 fL Low 7.4 - 10.4 fL [facility] Work Phone: Platelets (Bld) [#/Vol] 303 10*3/uL 140 - 440 10*3/uL [facility] Work Phone: RBC (Bld) [#/Vol] 4.77 10*6/uL 4.40 - 5.9 0 10*6/uL [facility] Work Phone: WBC (Bld) [#/Vol] 8.5 10*3/uL 3.6 - 10.7 10*3/uL [facility] Work Phone: CR Chest Portableon 09-26-19 CR Chest Portable Patient Name: SUZETTE PALOMINO Diagnostic Radiology ACCESSION EXAM DATE/TIME PROCEDURE ORDERING PROVIDER [id number] 09/25/2020 05:59 EDT CR Chest Portable MD MORALEZ KEVIN CPT code 86909 Reason For Exam (CR Chest Portable) s/p lung decortication Report Indication: Chest tube. A frontal view of the chest timed 520 is compared to the study dated 09/24/2020. Again identified is a right-sided chest tube. Surgical clips project over the right lung base. There are postsurgical changes of the posterior aspect of the right eighth rib. No sizable pneumothorax is seen. A small amount of subcutaneous emphysema is identified at the base of the neck on the right and along the right lateral chest wall. This has minimally increased. The heart is not enlarged. The mediastinum and pulmonary vascularity are within normal limits. There are unchanged right mid and lower lung infiltrates/atelecta sis. There are mild atelectatic changes in the left lower lung which have improved. Report Dictated on Final Dictated: 09/25/2020 7:58 am Dictating Physician: DO CARTWRIGHT ANTHONY Signed Date and Time: 09/25/2020 7:59 am Signed by: DO CARTWRIGHT ANTHONY Transcribed Date and Time: 09/25/2020 7:58 Normal [facility] Hemogramon 09-25-2020 Erythrocyte distribution width (RBC) [Ratio] 16.3 % High 11.5-14.5 [facility] Comment on above: Performed By: #### P HOS3, MG3, BMP3M, HEMOG #### [address] [address] [place], [place] Hematocrit (Bld) [Volume fraction] 38.3 % Low 40.0-52.0 [facility] Comment on above: Performed By: #### P HOS3, MG3, BMP3M, HEMOG #### [address] [address] [place], [place] Hemoglobin (Bld) [Mass/Vol] 13.2 g/dL Normal 13.0-18.0 [facility] Comment on above: Performed By: #### P HOS3, MG3, BMP3M, HEMOG #### [address] MCH (RBC) [Entitic mass] 27.7 pg Normal 26.0-34.0 [facility] Comment on above: Performed By: #### P HOS3, MG3, BMP3M, HEMOG #### [address] [address] [place], [place] MCHC 34.5 % Normal 32.0-36.0 [facility] Comment on above: Performed By: #### P HOS3, MG3, BMP3M, HEMOG #### [address] [address] [address] [place], [place] MCV (RBC) [Entitic vol] 80.3 fL Normal 80.0-98.0 [facility] Comment on above: Performed By: #### P HOS3, MG3, BMP3M, HEMOG #### [address] [address] [address] [place], [place] Platelet mean volume (Bld) [Entitic vol] 6.4 fL Low 7.4-10.4 [facility] Comment on above: Performed By: #### P HOS3, MG3, BMP3M, HEMOG #### [address] [address] [address] [place], [place] Platelets (Bld) [#/Vol] 303 10*3/uL Normal 140-440 [facility] Comment on above: Performed By: #### P HOS3, MG3, BMP3M, HEMOG #### [address] [address] [address] [place], [place] RBC (Bld) [#/Vol] 4.77 10*6/uL Normal 4.40-5.90 [facility] Comment on above: Performed By: #### P HOS3, MG3, BMP3M, HEMOG #### [address] [address] [address] [place], [place] WBC (Bld) [#/Vol] 8.5 10*3/uL Normal 3.6-10.7 [facility] Comment on above: Performed By: #### P HOS3, MG3, BMP3M, HEMOG #### [address] [address] [address] [place], [place] Leukodepleted Red Cellson Leukodepleted Red Cells Leukodepleted Red Cells: [id number] released 09/25/20 07:30 JMV Unit Blood Type: O Unit Blood Rh: POS Blood Product Code: LP1 Unit Number: [id number] Unit Status: released Barcoded Unit Number: [id number] Barcoded Product Code: = Barcoded ABO/Rh: =%5100 Unit Expiration: [id number] Leukodepleted Red Cells: [id number] released 09/25/20 07:30 JMV Unit Blood Type: O Unit Blood Rh: POS Blood Product Code: LP1 Unit Number: [id number] Unit Status: released Barcoded Unit Number: =[id number] Barcoded Product Code: = Barcoded ABO/Rh: =%5100 Unit Expiration: [id number] Unit Volume Transfused: 0 Unit Transfusion Start Date/Time: Unit Transfusion End Date/Time: Normal [facility] Comment on above: Performed By: #### L RC ####[place] [address]#### TSGL ####[facility] MagnesiumOrdered By: Brad Ashraf on 09-25-2020 Magnesium [Mass/Vol] 1.8 mg/dL Normal 1.6-2.3 [facility] Work Phone: Comment on above: Performed By: #### P HOS3, MG3, BMP3M, HEMOG #### [address] [address] No Panel InformationOrdered By: Brad Moralez on 09-25-2020 Interpretation and review of laboratory results Abnormal [facility] Work Phone: Test Performed by [address] Work Phone: PhosphorusOrdered By: Brad Moralez on 09-25-2020 Phosphate [Mass/Vol] 2.9 mg/dL Normal 2.5-4.5 [facility] Work Phone: Comment on above: Performed By: #### P HOS3, MG3, BMP3M, HEMOG #### [address] [address] XR CHEST PORTABLEOrdered By: Brad Moralez on 09-25-2020 Patient Name: SUZETTE PALOMINO Diagnostic Radiology ACCESSION EXAM DATE/TIME PROCEDURE ORDERING PROVIDER [id number] 09/25/2020 05:59 EDT CR Chest Portable MD MORALEZ KEVIN CPT code 44253 Reason For Exam (CR Chest Portable) s/p lung decortication Report Indication: Chest tube. A frontal view of the chest timed 520 is compared to the study dated 09/24/2020. Again identified is a right-sided chest tube. Surgical clips project over the right lung base. There are postsurgical changes of the posterior aspect of the right eighth rib. No sizable pneumothorax is seen. A small amount of subcutaneous emphysema is identified at the base of the neck on the right and along the right lateral chest wall. This has minimally increased. The heart is not enlarged. The mediastinum and pulmonary vascularity are within normal limits. There are unchanged right mid and lower lung infiltrates/atelecta sis. There are mild atelectatic changes in the left lower lung which have improved. Report Dictated on --- Final --- Dictated: 09/25/2020 7:58 am Dictating Physician: DO CARTWRIGHT ANTHONY Signed Date and Time: 09/25/2020 7:59 am Signed by: DO CARTWRIGHT ANTHONY Transcribed Date and Time: 09/25/2020 7:58 [facility] Work Phone: Stu, Michelle Incoming Radiology Results From [facility] - 09/25/2020 8:00 AM EDT [id number] Radiology ACCESSION EXAM DATE/TIME PROCEDURE ORDERING PROVIDER [id number] 09/25/2020 05:59 EDT CR Chest Portable MD MORALEZ KEVIN CPT code 54208 Reason For Exam (CR Chest Portable) s/p lung decortication Report Indication: Chest tube. A frontal view of the chest timed 520 is compared to the study dated 09/24/2020. Again identified is a right-sided chest tube. Surgical clips project over the right lung base. There are postsurgical changes of the posterior aspect of the right eighth rib. No sizable pneumothorax is seen. A small amount of subcutaneous emphysema is identified at the base of the neck on the right and along the right lateral chest wall. This has minimally increased. The heart is not enlarged. The mediastinum and pulmonary vascularity are within normal limits. There are unchanged right mid and lower lung infiltrates/atelecta sis. There are mild atelectatic changes in the left lower lung which have improved. Report Dictated on --- Final --- Dictated: 09/25/2020 7:58 am Dictating Physician: DO CARTWRIGHT ANTHONY Signed Date and Time: 09/25/2020 7:59 am Signed by: DO CARTWRIGHT ANTHONY Transcribed Date and Time: 09/25/2020 7:58 [facility] Work Phone: CBCOrdered By: Margareth Lou on 09-24-2020 Hematocrit (Bld) [Volume fraction] 44.1 % 40.0 - 52.0 % [employer] Work Phone: Hemoglobin.gastrointes tinal spec 1 Ql (Stl) 14.9 g/dL 13.0 - 18.0 g/dL [employer] Work Phone: Interpretation and review of laboratory results Abnormal [employer] Work Phone: MCH (RBC) [Entitic mass] 27.8 pg 26.0 - 34.0 pg [facility] Work Phone: MCHC (RBC) [Mass/Vol] 33.8 % 32.0 - 36.0 % [facility] Work Phone: MCV (RBC) [Entitic vol] 82.1 fL 80.0 - 98.0 fL [facility] Work Phone: Platelet distribution width (Bld) [Ratio] 16.3 % High 11.5 - 14.5 % [facility] Work Phone: Platelet mean volume (Bld) [Entitic vol] 6.5 fL Low 7.4 - 10.4 fL [facility] Work Phone: Platelets (Bld) [#/Vol] 316 10*3/uL 140 - 440 10*3/uL [facility] Work Phone: RBC (Bld) [#/Vol] 5.37 10*6/uL 4.40 - 5.9 0 10*6/uL [employer] Work Phone: WBC (Bld) [#/Vol] 6.5 10*3/uL 3.6 - 10.7 10*3/uL [employer] Work Phone: Test Performed by [employer], [facility] [place] [address] [employer] Work Phone: CR Chest Portableon 09-25-19 21 CR Chest Portable Patient Name: SUZETTE PALOMINO Diagnostic Radiology ACCESSION EXAM DATE/TIME PROCEDURE ORDERING PROVIDER [id number] 09/24/2020 17:42 EDT CR Chest Portable MD MORALEZ KEVIN CPT code 93113 Reason For Exam (CR Chest Portable) s/p right thoractomy Report SINGLE FRONTAL VIEW OF THE CHEST CLINICAL INDICATION: s/p right thoractomy TECHNIQUE: Single frontal view of the chest COMPARISON: 09/20/2020 FINDINGS: Soft tissue gas along the right lateral chest wall, and right basilar chest tube. Decreased pleural effusion on the right since the previous study, stable infiltrates or atelectasis. Increasing atelectasis left lung base. Heart size normal. No vascular congestion. IMPRESSION: 1. Status post right chest tube placement, decreased right pleural effusion. Stable infiltrates or atelectasis right lung base, increasing atelectasis left lung base. Report Dictated on Final Dictated: 09/24/2020 5:20 pm Dictating Physician: MD GREEN JOHN R Signed Date and Time: 09/24/2020 5:22 pm Signed by: MD GREEN JOHN R Transcribed Date and Time: 09/24/2020 5:20 Normal [facility] Hemoglobin A1Con 09-24-2020 Glucose [Mass/Vol] 117 mg/dL Normal [facility] Comment on above: Performed By: #### H A1C2, HEMOG ####[employer] [id number] [place] [address] HbA1c (Bld) [Mass fraction] 5.7 % Abnormal [facility] Comment on above: Result Comment: Norm al less than 5.7% Prediabetes 5.7% to 6.4% Diabetes 6.5% or higher --HgbA1C levels may not be accurate in patients who have renal disease, received recent blood transfusions, are anemic, or who have dyshemoglobinemia. Performed By: #### H A1C2, HEMOG ####[facility] [id number] [place], [place] Hemoglobin [id number] By: St sanchez Lou on 09-24-2020 HbA1c (Bld) [Mass fraction] 5.7 % Abnormal [facility] Work Phone: Comment on above: Normal less than 5.7 % Prediabetes 5.7% to 6.4% Diabetes 6.5% or higher --HgbA1C levels may not be accurate in patients who have renal disease, received recent blood transfusions, are anemic, or who have dyshemoglobinemia. Interpretation and review of laboratory results Abnormal [facility] Work Phone: Magnesium [Mass/Vol] 117 mg/dL [facility] Work Phone: Test Performed by [facility], [facility] [place], [place] [id number] [place] [address] Work Phone: Hemogramon 09-24-2020 Erythrocyte distribution width (RBC) [Ratio] 16.3 % High 11.5-14.5 [facility] [employer] Comment on above: Performed By: #### H A1C2, HEMOG ####[facility] [id number] [place], [place] Hematocrit (Bld) [Volume fraction] 44.1 % Normal 40.0-52.0 [facility] Comment on above: Performed By: #### H A1C2, HEMOG ####[facility] [id number] [place], [place] Hemoglobin (Bld) [Mass/Vol] 14.9 g/dL Normal 13.0-18.0 [facility] Comment on above: Performed By: #### H A1C2, HEMOG ####[facility] [id number] [place], [place] MCH (RBC) [Entitic mass] 27.8 pg Normal 26.0-34.0 [facility] Comment on above: Performed By: #### H A1C2, HEMOG ####[address] [place], [place] MCHC 33.8 % Normal 32.0-36.0 [facility] Comment on above: Performed By: #### H A1C2, HEMOG ####[address] [place], [place] MCV (RBC) [Entitic vol] 82.1 fL Normal 80.0-98.0 [facility] Comment on above: Performed By: #### H A1C2, HEMOG ####[address] [place], [place] Platelet mean volume (Bld) [Entitic vol] 6.5 fL Low 7.4-10.4 [facility] Comment on above: Performed By: #### H A1C2, HEMOG ####[address] [place], [place] Platelets (Bld) [#/Vol] 316 10*3/uL Normal 140-440 [facility] Comment on above: Performed By: #### H A1C2, HEMOG ####[address] [place], [place] RBC (Bld) [#/Vol] 5.37 10*6/uL Normal 4.40-5.90 [facility] Comment on above: Performed By: #### H A1C2, HEMOG ####[address] [place], [place] WBC (Bld) [#/Vol] 6.5 10*3/uL Normal 3.6-10.7 [facility] Comment on above: Performed By: #### H A1C2, HEMOG ####[address] [place], [place] Op Noteon 09-24-2020 Op Note PATIENT: SUZETTE PALOMINO ADMISSION DATE: 09/24/2020 SURGERY DATE: 09/24/2020 DATE OF : 1950 AGE: 70 ADMITTING PHYSICIAN: Brad Gama MD ATTENDING PHYSICIAN: Brad Gama MD DICTATING PHYSICIAN: Brad Gama MD OPERATIVE RECORD PRIMARY CARE PHYSICIAN: Dr. Georgiana Mcfadden Procedure: RIGHT THORACOTOMY, TOTAL PULMONARY DECORTICATION. PREOPERATIVE DIAGNOSIS: Right lung entrapment status post coronavirus infection. Postoperative Diagnosis: Right lung entrapment status post coronavirus infection. Anesthesia: General endotracheal. Complications: None. Findings: No fluid was present in the right chest cavity. There were adhesions between the 3 lobes, which were essentially cleared. The junction of the right lower lobe and right upper lobe for an area of approximately 5 x 5 cm was integral with the chest wall and could not be taken down without causing significant lung destruction. There was also a small air leak in this area at which I applied Progel glue. The right lower lobe and right middle lobe and upper with the exception of the area attached to chest wall appeared to re-inflate well postoperatively. My impression was that a lung entrapment was in fact present. Indications for Procedure: The patient is a 70-year-old gentleman, referred status post coronavirus with a right lung entrapment for the aforementioned surgical procedure. DESCRIPTION OF PROCEDURE: The patient was positioned on the operative table in supine position and general endotracheal anesthesia was induced with a double-lumen ET tube in place. The patient was repositioned in the left lateral decubitus position for access to the right chest which was prepped and draped in usual sterile fashion. Initially, I introduced a 5 mm thoracoscope and adhesions were evident and clearly the case was not amenable to thoracoscopic surgery. Therefore, I converted to a right minithoracotomy, which was partial muscle splitting. Portion of the seventh rib was removed posteriorly to allow for a flexed incision and the retractor was positioned. I described above the finding of the junction of the right lower and upper lobe attached to chest wall integrally. Otherwise, I was able to take down adhesions in the fissures as well as from the chest wall, mediastinum and diaphragm. There was no fluid present. I did not feel any lung masses either. A 24-Romansh Wilder drain was placed in the chest cavity through a separate incision site. The lung was submerged into warm sterile water and a small air leak was evident integral with the area of the lung, which I had tried to shear off of the chest wall and entered the lung. This was not amenable to suturing without doing a counter incision thoracotomy and taking down further lung tissue which I think would have been destructive to the lung tissue. Therefore, excepted the lung leak with Progel glue. It was very small. The ribs were reapproximated with #2 Vicryl in interrupted fashion. Soft tissues were closed in layers with Vicryl and the skin with Monocryl in a subcuticular fashion. A Dermabond dressing applied. The patient was transferred stable and extubated to the Heart and Lung unit. [employer] Job ID: [id number] Brad Gama MD DOD:09/24/2020 04:34 P MUNA/oni DOT:09/24/2020 05:30 P Job Number: [id number] Document Number: [id number] cc: Brad Gama MD [address] XR CHEST PORTABLEOrdered By: Brad Moralez on 09-24-2020 Patient Name: SUZETTE PALOMINO Diagnostic Radiology ACCESSION EXAM DATE/TIME PROCEDURE ORDERING PROVIDER [id number] 09/24/2020 17:42 EDT CR Chest Portable MD MORALEZ KEVIN CPT code 17164 Reason For Exam (CR Chest Portable) s/p right thoractomy Report SINGLE FRONTAL VIEW OF THE CHEST CLINICAL INDICATION: s/p right thoractomy TECHNIQUE: Single frontal view of the chest COMPARISON: 09/20/2020 FINDINGS: Soft tissue gas along the right lateral chest wall, and right basilar chest tube. Decreased pleural effusion on the right since the previous study, stable infiltrates or atelectasis. Increasing atelectasis left lung base. Heart size normal. No vascular congestion. IMPRESSION: 1. Status post right chest tube placement, decreased right pleural effusion. Stable infiltrates or atelectasis right lung base, increasing atelectasis left lung base. Report Dictated on --- Final --- Dictated: 09/24/2020 5:20 pm Dictating Physician: MD NORMAGEORGIANA Signed Date and Time: 09/24/2020 5:22 pm Signed by: MD GREEN JOHN R Transcribed Date and Time: 09/24/2020 5:20 [facility] Work Phone: [facility], [facility] Incoming Radiology Results From [facility] - 09/24/2020 5:42 PM EDT Patient Name: SUZETTE PALOMINO Diagnostic Radiology ACCESSION EXAM DATE/TIME PROCEDURE ORDERING PROVIDER [id number] 09/24/2020 17:42 EDT CR Chest Portable MD MORALEZ KEVIN CPT code 89037 Reason For Exam (CR Chest Portable) s/p right thoractomy Report SINGLE FRONTAL VIEW OF THE CHEST CLINICAL INDICATION: s/p right thoractomy TECHNIQUE: Single frontal view of the chest COMPARISON: 09/20/2020 FINDINGS: Soft tissue gas along the right lateral chest wall, and right basilar chest tube. Decreased pleural effusion on the right since the previous study, stable infiltrates or atelectasis. Increasing atelectasis left lung base. Heart size normal. No vascular congestion. IMPRESSION: 1. Status post right chest tube placement, decreased right pleural effusion. Stable infiltrates or atelectasis right lung base, increasing atelectasis left lung base. Report Dictated on --- Final --- Dictated: 09/24/2020 5:20 pm Dictating Physician: MD GREEN JOHN R Signed Date and Time: 09/24/2020 5:22 pm Signed by: MD GREEN JOHN R Transcribed Date and Time: 09/24/2020 5:20 [facility] Work Phone: CR Chest PA/LATon 09-20-2020 CR Chest PA/LAT Patient Name: SUZETTE PALOMINO Diagnostic Radiology ACCESSION EXAM DATE/TIME PROCEDURE ORDERING PROVIDER [id number] 09/20/2020 15:38 EDT CR Chest PA and LAT [id number] CPT code 20157 Reason For Exam (CR Chest PA and LAT) preoperative evaluation Report CHEST X-RAY PA and lateral CLINICAL INDICATION: Preoperative examination PA and lateral radiographs of the chest were obtained. COMPARISON: None FINDINGS: The cardiac silhouette is within normal limits. Volume loss of the right lung with associated atelectasis/architec tural distortion. A small right pleural effusion may be present. No left-sided pleural effusion or focal consolidation is seen within the lungs. No pneumothorax is identified. Degenerative changes of the thoracic spine are noted. IMPRESSION: Volume loss of the right lung with associated atelectasis/architec tural distortion. A small right pleural effusion may be present. Report Dictated on Final Dictated: 09/20/2020 3:58 pm Dictating Physician: MD MCDONALD JASON Signed Date and Time: 09/20/2020 3:59 pm Signed by: MD MCDONALD JASON Transcribed Date and Time: 09/20/2020 3:58 Normal [facility] Comp Metabolic Panelon 09-20 ALP [Catalytic activity/Vol] 85 U/L Normal 38-126 [facility] Comment on above: Performed By: #### C MP3, MG3, HA1C2 #### [address] ALT [Catalytic activity/Vol] 15 U/L Normal 0-49 [facility] Comment on above: Result Comment: The ALT test is performed by an updated assay method. Please note that the reference intervals have been changed and are now sex specific. Performed By: #### C MP3, MG3, HA1C2 #### [address] [address] [place], [place] AST [Catalytic activity/Vol] 34 U/L Normal 15-46 [facility] Comment on above: Performed By: #### C MP3, MG3, HA1C2 #### [address] Calcium [Mass/Vol] 9.4 mg/dL Normal 8.4-10.4 [facility] Comment on above: Performed By: #### C MP3, MG3, HA1C2 #### [address] [address] Glucose [Mass/Vol] 91 mg/dL Normal 70-100 [facility] Comment on above: Performed By: #### C MP3, MG3, HA1C2 #### [address] [address] [place], [place] Urea nitrogen [Mass/Vol] 18 mg/dL Normal 7-20 [facility] Comment on above: Performed By: #### C MP3, MG3, HA1C2 #### [address] [address] [place], [place] Anion gap [Moles/Vol] 8 mmol/L Normal 3-13 [facility] Comment on above: Performed By: #### C MP3, MG3, HA1C2 #### [address] [address] [place], [place] Bilirubin [Mass/Vol] 0.9 mg/dL Normal 0.2-1.3 [facility] Comment on above: Performed By: #### C MP3, MG3, HA1C2 #### [address] [address] [place], [place] CO2 [Moles/Vol] 28 mmol/L Normal 22-30 [facility] Comment on above: Performed By: #### C MP3, MG3, HA1C2 #### [address] [address] [place], [place] Creatinine [Mass/Vol] 0.99 mg/dL Normal 0.52-1.25 [facility] Comment on above: Performed By: #### C MP3, MG3, HA1C2 #### [address] [address] [address] [place], [place] GFR/1.73 sq M.predicted among blacks MDRD (S/P/Bld) [Vol rate/Area] 88.6 mL/min/{1.73_m2} Normal >60 [facility] Comment on above: Performed By: #### C MP3, MG3, HA1C2 #### [address] [address] [place], [place] GFR/1.73 sq M.predicted among non-blacks MDRD (S/P/Bld) [Vol rate/Area] 76.5 mL/min/{1.73_m2} Normal >60 [facility] Comment on above: Result Comment: KDIG O guidelines provide the following GFR categories: Stage GFR(ml/min/1.73 m2) Terms G1 >=90 Normal or high G2 60-89 Mildly decreased* G3a 45-59 Mildly to moderately decreased G3b 30-44 Moderately to severely decreased G4 15-29 Severely decreased G5 <15 Kidney failure *Relative to young adult level. In the absence of evidence of kidney damage, neither GFR category G1 nor G2 fulfill the criteria for CKD. The CKD-EPI equation is validated in individuals 18 years of age and older. Currently the best equation for estimating glomerular filtration rate (GFR) from serum creatinine in children is the Bedside Mann equation. It is less accurate in patients with extremes of muscle mass, restriction of dietary protein, ingestion of creatine, extra-renal metabolism of creatinine, or treatment with medications that affect renal tubular creatinine secretion. Performed By: #### C MIRANDA3 MG3, HA1C2 #### [address] Protein [Mass/Vol] 7.7 g/dL Normal 6.3-8.2 [facility] Comment on above: Performed By: #### Bety JEAN3 MG3, HA1C2 #### [address] Potassium [Moles/Vol] 3.8 mmol/L Normal 3.5-5.1 [facility] Comment on above: Performed By: #### C MP3, MG3, HA1C2 #### [address] Sodium [Moles/Vol] 139 mmol/L Normal 135-145 [facility] Comment on above: Performed By: #### C MP3, MG3, HA1C2 #### [address] Albumin [Mass/Vol] 4.4 g/dL Normal 3.5-5.0 [facility] Comment on above: Performed By: #### Bety MP3, MG3, HA1C2 #### [address] [address] Chloride [Moles/Vol] 103 mmol/L Normal 98-107 [facility] Comment on above: Performed By: #### C MP3, MG3, HA1C2 #### [facility] [address] [place] [address] Comprehensive Metabolic Pane lOrdered By: Shashank Umanzor on 09-20-2020 Albumin [Mass/Vol] 4.4 g/dL 3.5 - 5.0 g/dL [facility] Work Phone: ALP (Bld) [Catalytic activity/Vol] 85 U/L 38 - 126 U/L [facility] Work Phone: ALT [Catalytic activity/Vol] 15 U/L 0 - 49 U/L [facility] Work Phone: Comment on above: The ALT test is perf ormed by an updated assay method. Please note that the reference intervals have been changed and are now sex specific. Anion gap [Moles/Vol] 8 mmol/L 3 - 13 mmol/L [facility] Work Phone: AST [Catalytic activity/Vol] 34 U/L 15 - 46 U/L [facility] Work Phone: Bilirubin [Mass/Vol] 0.9 mg/dL 0.2 - 1 .3 mg/dL [facility] Work Phone: Calcium [Mass/Vol] 9.4 mg/dL 8.4 - 10. 4 mg/dL [facility] Work Phone: Chloride [Moles/Vol] 103 mmol/L 98 - 10 7 mmol/L [facility] Work Phone: CO2 [Moles/Vol] 28 mmol/L 22 - 30 mmol/L [facility] Work Phone: Creatinine [Mass/Vol] 0.99 mg/dL 0.52 - 1.25 mg/dL [facility] Work Phone: EGFR IF NonAfrican [place] 76.5 mL/min >60 [facility] Work Phone: Comment on above: KDIGO guidelines pro vide the following GFR categories: Stage GFR(ml/min/1.73 m2) Terms G1 >=90 Normal or high G2 60-89 Mildly decreased* G3a 45-59 Mildly to moderately decreased G3b 30-44 Moderately to severely decreased G4 15-29 Severely decreased G5 <15 Kidney failure *Relative to young adult level. In the absence of evidence of kidney damage, neither GFR category G1 nor G2 fulfill the criteria for CKD. The CKD-EPI equation is validated in individuals 18 years of age and older. Currently the best equation for estimating glomerular filtration rate (GFR) from serum creatinine in children is the Bedside Mann equation. It is less accurate in patients with extremes of muscle mass, restriction of dietary protein, ingestion of creatine, extra-renal metabolism of creatinine, or treatment with medications that affect renal tubular creatinine secretion. Free PSA/Total PSA [Mass fraction] 7.7 g/dL 6.3 - 8.2 g/dL [facility] Work Phone: GFR/1.73 sq M.predicted among blacks MDRD (S/P/Bld) [Vol rate/Area] 88.6 mL/min/{1.73_m2} >60 [facility] Work Phone: Glucose [Mass/Vol] 91 mg/dL 70 - 100 mg/dL [facility] Work Phone: Potassium [Moles/Vol] 3.8 mmol/L 3.5 - 5.1 mmol/L [facility] Work Phone: Sodium [Moles/Vol] 139 mmol/L 135 - 145 mmol/L [facility] Work Phone: Urea nitrogen (BldV) [Mass/Vol] 18 mg/dL 7 - 20 mg/dL [facility] Work Phone: Hemoglobin A1Con 09-20-2020 Glucose [Mass/Vol] 117 mg/dL [facility] Comment on above: Performed By: #### C MP3, MG3, HA1C2 ####[facility] [id number] [place] [address] HbA1c (Bld) [Mass fraction] 5.7 % Abnormal [facility] Comment on above: Result Comment: Norm al less than 5.7% Prediabetes 5.7% to 6.4% Diabetes 6.5% or higher --HgbA1C levels may not be accurate in patients who have renal disease, received recent blood transfusions, are anemic, or who have dyshemoglobinemia. Performed By: #### C MP3, MG3, HA1C2 ####[facility] [id number] [place] [address] Hemoglobin [id number] By: Martín Umanzor on 09-20-2020 HbA1c (Bld) [Mass fraction] 5.7 % Abnormal [facility] Work Phone: Comment on above: Normal less than 5.7 % Prediabetes 5.7% to 6.4% Diabetes 6.5% or higher --HgbA1C levels may not be accurate in patients who have renal disease, received recent blood transfusions, are anemic, or who have dyshemoglobinemia. Interpretation and review of laboratory results Abnormal [facility] Work Phone: Magnesium [Mass/Vol] 117 mg/dL [facility] Work Phone: Test Performed by [employer], [address] [place] [id number] [place] [address] Work Phone: MRSA by PCROrdered By: Shashank Umanzor on 09-20-2020 Staph Aureus Sc No S. aureus detected. Negative nasal MRSA PCR has a high negative predictive value for MRSA pneumonia. Consider stopping vancomycin if no other clinical indication. Contact Antimicrobial Stewardship for further recommendations. The analytical performance characteristics of this assay have been determined by [employer] in accordance with CLIA regulations. The modifications have not been cleared or approved by the U. S. Food and Drug Administration; however, the FDA has determined that such clearance or approval is not necessary. [facility] Work Phone: Test Performed by [employer], [address] [place] [id number] [place] [address] Work Phone: Magnesiumon 09-20-2020 Magnesium [Mass/Vol] 1.9 mg/dL Normal 1.6-2.3 [facility] Comment on above: Performed By: #### C MP3, MG3, HA1C2 #### [employer] [address] [place] [id number] MagnesiumOrdered By: Shashank cunningham on 09-20-2020 Magnesium [Mass/Vol] 1.9 mg/dL 1.6 - 2 .3 mg/dL [facility] Work Phone: No Panel InformationOrdered By: Shashank Umanzor on 09-20-2020 Test Performed by [employer] [facility], [address] [place] [id number] [facility] Work Phone: Staph Aureus Complete Nasalo n 09-20-2020 Staph Aureus Complete Nasal Staph Screen --> Status: F No S. aureus detected. Negative nasal MRSA PCR has a high negative predictive value for MRSA pneumonia. Consider stopping vancomycin if no other clinical indication. Contact Antimicrobial Stewardship for further recommendations. The analytical performance characteristics of this assay have been determined by [employer] in accordance with CLIA regulations. The modifications have not been cleared or approved by the U. S. Food and Drug Administration; however, the FDA has determined that such clearance or approval is not necessary. Negative nasal MRSA PCR has a high negative predictive value for MRSA pneumonia. Consider stopping vancomycin if no other clinical indication. Contact Antimicrobial Stewardship for further recommendations. The analytical performance characteristics of this assay have been determined by [employer] in accordance with CLIA regulations. The modifications have not been cleared or approved by the U. S. Food and Drug Administration; however, the FDA has determined that such clearance or approval is not necessary. Normal [facility] Comment on above: Performed By: #### S APCR ####[id number] [place] [address] TS GELon 09-20-2020 TS GEL ABO Group: O Rh, Gel: POS Antibody Screen Gel: NEG Normal [facility] Comment on above: Performed By: #### L RC ####[address] [address]#### TSGL ####[employer] TYPE AND SCREENOrdered By: Nicol Umanzor on 09-20-2020 ABO Grouping O [facility] Work Phone: Rh Type Positive [facility] Work Phone: Test Performed by [employer] [facility], [address] [place] [id number] [facility] [facility] Work Phone: XR CHEST (2 VW)Ordered By: Nicol Umanzor on 09-20-2020 [id number] ACCESSION EXAM DATE/TIME PROCEDURE ORDERING PROVIDER [id number] 09/20/2020 15:38 EDT CR Chest PA & LAT [id number] MARTÍN WINKLERIN CPT code 89598 Reason For Exam (CR Chest PA & LAT) preoperative evaluation Report CHEST X-RAY PA and lateral CLINICAL INDICATION: Preoperative examination PA and lateral radiographs of the chest were obtained. COMPARISON: None FINDINGS: The cardiac silhouette is within normal limits. Volume loss of the right lung with associated atelectasis/architec tural distortion. A small right pleural effusion may be present. No left-sided pleural effusion or focal consolidation is seen within the lungs. No pneumothorax is identified. Degenerative changes of the thoracic spine are noted. IMPRESSION: Volume loss of the right lung with associated atelectasis/architec tural distortion. A small right pleural effusion may be present. Report Dictated on --- Final --- Dictated: 09/20/2020 3:58 pm Dictating Physician: MD MCDONALD JASON Signed Date and Time: 09/20/2020 3:59 pm Signed by: MD MCDONALD JASON Transcribed Date and Time: 09/20/2020 3:58 [facility] Work Phone: Stu, [facility] Incoming Radiology Results From [facility] - 09/20/2020 4:00 PM EDT Patient Name: SUZETTE PALOMINO Diagnostic Radiology ACCESSION EXAM DATE/TIME PROCEDURE ORDERING PROVIDER [id number] 09/20/2020 15:38 EDT CR Chest PA & LAT [id number] -SHASHANK UMANZOR CPT code 69936 Reason For Exam (CR Chest PA & LAT) preoperative evaluation Report CHEST X-RAY PA and lateral CLINICAL INDICATION: Preoperative examination PA and lateral radiographs of the chest were obtained. COMPARISON: None FINDINGS: The cardiac silhouette is within normal limits. Volume loss of the right lung with associated atelectasis/architec tural distortion. A small right pleural effusion may be present. No left-sided pleural effusion or focal consolidation is seen within the lungs. No pneumothorax is identified. Degenerative changes of the thoracic spine are noted. IMPRESSION: Volume loss of the right lung with associated atelectasis/architec tural distortion. A small right pleural effusion may be present. Report Dictated on --- Final --- Dictated: 09/20/2020 3:58 pm Dictating Physician: MD MCDONALD JASON Signed Date and Time: 09/20/2020 3:59 pm Signed by: MD MCDONALD JASON Transcribed Date and Time: 09/20/2020 3:58 [facility] Work Phone: Vital Signs Date Time Vital Sign Value Performing Clinician Facility 09-26-2020 07:50-0400 Respiratory rate 16 /min Brad Gama MD Work Phone: [facility] Work Phone: 09-26-2020 07:50-0400 SaO2% (BldA) [Mass fraction] 98 % Brad Gama MD Work Phone: [facility] Work Phone: 09-26-2020 07:08-0400 Body temperature 97.11 [...] Work Phone: [facility] Work Phone: NEGATED: Highlighted [id number] 12:32-0400 Body height 180.34 cm Suzanne Cuadra [facility] Work Phone: NEGATED: Highlighted [id number] 12:32-0400 Body height 180 cm Suzanne Cuadra [facility] Work Phone: NEGATED: Highlighted [id number] 12:32-0400 Body mass index (BMI) [Ratio] 30.93 kg/m2 Suzanne Cuadra LPN [facility] Work Phone: NEGATED: Highlighted [id number] 12:32-0400 Body weight 100.25 kg Suzanne Cuadra LPN [facility] Work Phone: NEGATED: Highlighted [id number] 12:32-0400 Body weight 100 kg Suaznne Cuadra LPN [facility] Work Phone: Encounters Encounter Date Encounter Type Care Provider Facility Start: 08-07-2021 End: 08-07-2021 Ot evaluation Georgiana Littlejohn MD Work Phone: [facility] Work Phone: Start: 09-24-2020 End: 09-26-2020 Evaluation and management of inpatient Brad Gama MD Work Phone: [facility] Comment on above: S/P thoracotomy (Maria Elena suzanne Dx) Start: 09-20-2020 End: 09-20-2020 Subsequent hospital visit by physician Brad Gama MD Work Phone: [facility] Pre-Admit Testing Comment on above: Pleural effusion Start: 07-10-2020 Patient encounter procedure SELF SELF Facility:[facility] Procedures Date Procedure Procedure Detail Performing Clinician [...] 09-24-2020 Hemoglobin glycosyla karan a1c Margarethchetna Lou CO DIRECTOR - MUSIC HISTORIAN Work Phone: Start: 09-20-2020 Antibody screen Brad washington MD Work Phone: Start: 09-20-2020 Radiologic exam ches t 2 views Shashank Umanzor CO DIRECTOR - MUSIC HISTORIAN Work Phone: Start: 09-20-2020 MRSA BY PCR Shashank Palafox on CO DIRECTOR - MUSIC HISTORIAN Work Phone: Start: 09-20-2020 Blood typing serolog ic abo Shashank Umanzor CO DIRECTOR - MUSIC HISTORIAN Work Phone: Start: 09-20-2020 Comprehensive metabo lic panel Shashank Umanzor CO DIRECTOR - MUSIC HISTORIAN Work Phone: Start: 09-20-2020 Ecg routine ecg w/le ast 12 lds w/i&r Shashank Umanzor CO DIRECTOR - MUSIC HISTORIAN Work Phone: NEGATED: Highlighted rowStart: 08-07-2021 End: 08-07-2021 Documentation of current medications Suzanne Cuadra AIRLINE RADIO OPERATOR Plan of Treatment Date Care Activity Detail Author Start: 10-25-2025 DTaP/Tdap/Td vaccine (2 - Td) DTaP/Tdap/Td vaccine (2 - Td) [facility] Work Phone: Start: 09-26-2021 Creatinine measurement Creatinine mo nitoring [facility] Work Phone: Start: 09-26-2021 Potassium monitoring Potassium monit oring [facility] Work Phone: Start: 09-24-2021 Hemoglobin A1c measurement A1C test (Diabetic or Prediabetic) [facility] Work Phone: Start: 09-20-2021 Creatinine measurement Creatinine mo nitoring [facility] Work Phone: Start: 09-20-2021 Hemoglobin A1c measurement A1C test (Diabetic or Prediabetic) [facility] Work Phone: Start: 09-20-2021 Potassium monitoring Potassium monit oring [facility] Work Phone: Start: 08-07-2021 End: 08-07-2021 Patient encounter procedure Appointment [facility] Work Phone: Start: 08-07-2021 End: 08-07-2021 Radex hand minimum 3 views [facility] Work Phone: Start: 09-24-2020 Subsequent hospital visit by physician 09/24/2020 Hospital Encounter General Surgery Brad Gama MD [address] [place] [address] [facility] General Surgery Start: 09-20-2020 COVID-19 Vaccine (2 - Moderna 2-dose series) COVID-19 Vaccine (2 - Moderna 2-dose series) [facility] Work Phone: Start: 09-13-2020 Annual Wellness Visi t (AWV) Annual Wellness Visit (AWV) [facility] Work Phone: Start: 2015 Pneumococcal 65+ yea rs Vaccine (2 of 2 - PPSV23) Pneumococcal 65+ years Vaccine (2 of 2 - PPSV23) [facility] Work Phone: Start: 01-10-2000 Screening for malign ant neoplasm of colon Colon cancer screen colonoscopy [facility] Work Phone: Start: 01-10-1960 Lipid panel Lipid screen [facility] Work Phone: Start: 1950 Hepatitis C screening Hepatitis C sc reen [facility] Work Phone: Acapella Acapella Respira tory Care Routine Every 2hr while awake until discontinued starting 09/24/2020 [facility] Work Phone: Comment on above: Every 2hr while awak e until discontinued starting 09/24/2020 Basic Metabolic Pane l w/ Reflex to MG Basic Metabolic Panel w/ Reflex to MG Lab Routine Daily until discontinued starting 09/26/2020, 1 completed [facility] Work Phone: Comment on above: Daily until disconti nued starting 09/26/2020, 1 completed CBC panel - Blood by Automated count CBC Lab Routine Daily until discontinued starting 09/26/2020, 1 completed [facility] Work Phone: Comment on above: Daily until disconti nued starting 09/26/2020, 1 completed CPAP CPAP Respiratory Care Routine Every 4hr until discontinued starting 09/24/2020 [facility] Work Phone: Comment on above: Every 4hr until disc ontinued starting 09/24/2020 EKG 12 lead EKG 12 lead ECG Routine Pleural effusion 09/20/2020 2:51 PM EDT [facility] Work Phone: Nebulizer therapy HHN Treatment Respiratory Care Routine Every 4hr while awake until discontinued starting 09/24/2020 [facility] Work Phone: Comment on above: Every 4hr while awak e until discontinued starting 09/24/2020 Oxygen therapy [[facility] Data Set] Initiate Oxygen Therapy Protocol Respiratory Care Routine Daily until discontinued starting 09/24/2020 [facility] Work Phone: Comment on above: Daily until disconti nued starting 09/24/2020 PREPARE RBC (CROSSMATCH), 2 Units PREPARE RBC (CROSSMATCH), 2 Units Blood Bank Routine Pleural effusion 09/20/2020 3:21 PM EDT [facility] Work Phone: Spirometry panel Incentive aleida metry Respiratory Care Routine Every 2hr while awake until discontinued starting 09/24/2020 [facility] Work Phone: Comment on above: Every 2hr while awak e until discontinued starting 09/24/2020 End: 10-01-2020 XR CHEST PORTABLE XR CHEST PORTABLE Imaging Routine Daily for 7 Occurrences starting 09/25/2020 until 10/01/2020, 2 completed [facility] Work Phone: Comment on above: Daily for 7 Occurren messi starting 09/25/2020 until 10/01/2020, 2 completed Payers Date Payer Category Payer Medicare [id number] 1950 Unknown [id number] Social History Date Type Detail Facility Start: 09-20-2020 End: 09-25-2020 Tobacco smoking status NHIS Former smoker [facility] Work Phone: History of tobacco use Cigarette Smoker [facility] Start: 09-20-2020 End: 09-25-2020 Cigarettes smoked current (pack per day) - Reported [facility] Work Phone: Start: 09-20-2020 End: 09-25-2020 Tobacco use and exposure Never used [facility] Start: 09-20-2020 End: 09-25-2020 Alcohol intake Current drinker of alcohol (finding) [facility] Work Phone: Start: 09-20-2020 Tobacco Comment 1PPD TIMES 20 YRS QUIT 1979 [facility] Work Phone: Start: 09-13-2020 Alcohol Comment 1 glass of win e per evening [facility] Work Phone: Sex Assigned At Not on file [facility] Work Phone: Exposure to SARS-CoV -2 (event) Not sure [facility] Start: 08-07-2021 End: 08-07-2021 Assertion Unknown if ever smoked [facility] Work Phone: Discharge summary note 09-26-2020 Note Date & Type Note Facility 09-26-2020 Note Attestation signed by Brad Gmaa MD at 09/27/2020 12:44 PM I independently saw and evaluated the patient - including reviewing the labs, imaging studies, and available documentation. I agree with the findings and plan of care as documented by the resident/CHILD WATCH ATTENDANT/PHOTOGRAMMETRIC SURVEYOR/PA, unless otherwise noted. Please do not hesitate to contact me/us if you have any questions or concerns. Brad Gama MD FACS Discharge Summary: Cardiothoracic Surgery Suzette Palomino :1950 AGE: 70 y.o. ADMIT DATE: 09/24/2020 DISCHARGE DATE: 09/26/2020 DISCHARGING SURGEON: Brad Gama MD, Office Number: [phone] PRIMARY CARE PHYSICIAN: GEORGIANA FLOREZ VISIT STATUS: [...] entrapment status post coronavirus infection DISCHARGE MEDICATIONS: Suzette Palomino Home Medication Instructions RE:[id number] Printed on:09/26/20 8197 Medication Information allopurinol (ZYLOPRIM) 300 MG tablet [...] SIGNED: Brad Moralez MD 09/26/2020, 5:39 PM [facility] Discharge instructions 09-26-2020 Instructions Note Date & Type Note Facility 09-26-2020 Hospital Discharg e instructions Brad Moralez MD - 09/26/2020 Images from the original note were not included. [facility]: Cardiothoracic Surgery [address] [place] (T): #[phone] (F): #[phone] After lung surgery, it is common to [...] or dog food bags, or a vacuum fish cleaner machine tender. If your incision is in the front [...] start to have pain. Shoulder Stretch 1. bag filler machine operator a doorway and place one arm against [...] you are prescribed oxycodone/acetaminophen (Percocet) or hydrocodone/acetaminophen ([place]/Vicodin) be cautious when taking additional tylenol. No [...] day. -Over the counter pain patches called Salcholo pas may used as needed next to [...] pain. -Abdominal distention. documented in this encounter Index Phone: History of Present illness Narrative 09-26-2020 [...] be monitored and followed by the diet plant health care technician. [facility]EL[facility] Department of Surgery - Progress Note PATIENT NAME: Suzette Palomino : 1950 ATTENDING PHYSICIAN: Brad Gama [...] plan of care as documented by the resident/CHILD WATCH ATTENDANT/PHOTOGRAMMETRIC SURVEYOR/PA, unless otherwise noted. Please do not hesitate to contact me/us if you have any questions or concerns. Brad Gama MD FACS Physical Therapy Facility/Department: [facility] Initial Assessment NAME: Suzette Palomino : 1950 Date of Service: 09/25/2020 [...] Ambulation Assistance: Independent Transfer Assistance: Independent Active Manager Gift: Yes Cognition Cognition Overall Cognitive Status: WFL [...] Initially in place: No G-Code OutComes Score AM-PAC Score AM-PAC Inpatient Mobility Raw Score : 24 (09/25/205) AM-PAC Inpatient T-Scale Score : 61.14 (09/25/201024) Mobility Inpatient CMS 0-100% Score: 0 (09/25/201024) Mobility Inpatient CMS G-Code Modifier : CH (09/25/201024) Goals Patient Goals Patient goals : eval only Therapy Time Individual Concurrent Group Co-treatment Time In 1000 Time Out 1010 Minutes 10 Kerwin Crocker PT Department of Surgery - Progress Note PATIENT NAME: Suzette Palomino : 1950 ATTENDING PHYSICIAN: Brad Gama [...] in sodium chloride 0.9 % 30 mL TERMINAL COMPUTER OPERATOR, , Intravenous, Continuous HYDROmorphone (DILAUDID) injection 0.5 [...] medications per pain management team -Transfer to [address] Associated attestation - Brad Gama MD - 09/25/2020 12:11 PM EDT I independently saw and evaluated the patient - including reviewing the labs, imaging studies, and available documentation. I agree with the findings and plan of care as documented by the resident/CHILD WATCH ATTENDANT/PHOTOGRAMMETRIC SURVEYOR/PA, unless otherwise noted. Please do not hesitate to contact me/us if you have any questions or concerns. Brad Gama MD FACS Belongings taken to pt admit room [id number] Bethany Sinha MA documented in this encounter [facility] Work Phone: History of Present illness Narrative 09-20-2020 Margareth Lou APRN - CNP - 09/20/2020 2:00 PM EDT Note Date & Type Note Facility 09-20-2020 History of Present illness Narrative Received notification per lab- CBC and A1C clotted Ordered repeat DOS. documented in this encounter [facility] Work Phone: Hospital Discharge instructions 09-20-2020 InstructionsAttachments Note Date & Type Note Facility 09-20-2020 Hospital Discharge instructions Eva Servin RN - 09/20/2020 Please bring your CPAP/BiPAP device, mask, and equipment with you on the day of surgery. Do not bring water for your machine, it will be provided.Shower with and antibacterial soap such as Dial or Safeguard. Please bring your [facility] Surgical Information folder on the day of [...] through Care Everywhere.VATS (Video-Assisted Thoracoscopic Surgery): Post-op (Green[place]ic)Thoracoscopic Sympathectomy: Pre-op (Greenlandic)Thoracotomy: Post-op ([place]ic)VATS (Video-Assisted Thoracoscopic Surgery): Pre-op ([place]ic)documented in this encounter [facility] Work Phone: Evaluation note Note Date & Type Note Facility Evaluation note Diagnosis Pleural effusion Unspecified pleural effusion documented in this encounter [facility] Work Phone: Evaluation note Note Date & Type Note Facility Evaluation note Diagnosis S/P thoracotomy- Primary Other postprocedural status documented in this encounter [facility] Work Phone: Evaluation note Note Date & Type Note Facility Evaluation note There may be informa tion available, but it has not been provided by the sender. [facility] Work Phone: Instructions Note Date & Type Note Facility Instructions CompletedPatient advised to follow-up with Primary Care Physician for BMI management. [facility] Work Phone: Summary Purpose Family History [...] Diagnoses Pleural effusion Procedures EKG 12 lead Shashank Umanzor APRN - CNP [address] [place] [id number] Chief Complaint Chief Complaint Description Start Date bilateral hand pain Preliminary chief co mplaint data, not yet signed by the author as of Additional Source Comments (unrecognized sect ion and content) No Status Records FoundNo Status Records Found INFORMATION SOURCE (unrecogn ized section and content) DATE CREATED AUTHOR 07/12/2020 [facility] DATE CREATED AUTHOR AUTHOR'S RENITA REAGAN 08/30/2021 [facility] Ordered Prescriptions (unrec ognized section and content) Prescription Sig Dispensed Refills Start Date End Da te oxyCODONE (ROXICODONE) 5 MG immediate release tabletIndications:S/P thoracotomy Take 1 tablet by mouth every 6 hours as needed for Pain for up to 5 days. Intended supply: 5 days. Take lowest dose possible to manage pain 20 tablet 0 09/26/2020 10/01/2020 Reason for Visit (unrecogniz ed section and content) Reason For Visit Description New - 1st visit with practice Preliminary reason f or visit data, not yet signed by the author as of bilateral hand pain FOR RECORDS PERTAINING TO PATIENTS WHO ARE [...] BE BASED ON THE PRIMARY CLINICAL RECORDS. [employer] provides no warranty or guarantee of the accuracy or completeness of information in this document.
== END | disposition home or self-care (01) ==
LOC: PAVLAB 13:07
PROVIDERS: PCP Family Medicine; Referring Provider Urology; Visit Provider Urology
DX: N40.1 Benign prostatic hyperplasia with lower urinary tract symptoms (principal)
CPT/HCPCS: 36415; 84153

== ENCOUNTER → 2024-07-05 | Outpatient (CLI) | payer MEDICARE, OTHER, SELFPAY ==
[2024-07-05 10:31] LABS: Absolute Lymphocyte Count 1.62 X10^3/uL (0.83-4.51); Absolute Neutrophil Count 2.9 X10^3/uL (2.0-7.7); Basophil# 0.09 X10^3/uL; Basophil% 1.7 % (0-1); Eosinophil# 0.18 X10^3/uL; Eosinophils% 3.4 % (0-5); Hematocrit 43.1 % (40-54); Hemoglobin 14.7 g/dL (13.0-16.5); Lymphocyte # 1.62 X10^3/ul (0.83-4.51); Lymphocyte % 30.8 % (19-41); Mean Corp Hgb Conc 34.1 g/dL (32-36); Mean Corpuscular Hgb 30.9 pg (27.0-32.0); Mean Corpuscular Volume 90.7 fL (80-94); Mean Platelet Vol. 8.5 fl (6.2-12.0); Monocyte# 0.46 X10^3/uL; Monocyte% 8.7 % (0-10); NRBC Flagged by Analyzer 0 % (0-5); Neutrophil # 2.88 X10^3/uL (2.7-7.7); Neutrophil % 54.8 % (47-70); Platelet Count 254 K/mm3 (150-450); RBC Distribution Width CV 13.5 % (11.6-14.6); RBC Distribution Width SD 45.7 fl (35.1-43.9); Red Blood Count 4.75 M/mm3 (4.6-6.2); White Blood Count 5.3 K/mm3 (4.4-11.0)
[2024-07-05 10:35] LABS: Color, Urine Yellow (Yellow); Glucose, Dipstick Normal (Normal); Ketone-Dipstick Negative (Negative); Leukocyte Esterase-Dipstick Negative /ul (Negative); Nitrite-Dipstick Negative (Negative); Occult Blood-Urine Negative /ul (Negative); Protein-Dipstick 15 mg/dl (Negative); Urine Bilirubin Dipstick Negative (Negative); Urine Clarity Clear (Clear); Urine Urobilinogen Normal (Normal)
[2024-07-05 11:05] LABS: ALB/GLOB Ratio 1.2 RATIO (0.9-2.4); AST(SGOT) 18 U/L (15-37); Alanine Aminotransfer ALT/SGPT 24 U/L (16-61); Albumin, Serum 3.8 g/dL (3.2-5.0); Alkaline Phosphatase 51 U/L (45-117); Anion Gap 5 (5-15); BUN 22 mg/dL (7-18); BUN/Creat Ratio 19.1 RATIO (10-20); Calcium,Total 9.2 mg/dL (8.5-10.1); Chloride 108 mmol/L (98-107); Cholesterol 134 mg/dL (200); Creatinine, Serum 1.15 mg/dL (0.70-1.30); EST Glomerular Filtration Rate 66 mL/min (>60); Est Glom Filt Rate - Afr Amer 80 mL/min (>60); Globulin 3.3 g/dL (2.2-4.2); Glucose 95 mg/dL (74-106); High Density Lipoprotein 50 mg/dL; Potassium 4.3 mmol/L (3.5-5.1); Protein, Total 7.1 g/dL (6.4-8.2); Sodium Level 140 mmol/L (136-145); Triglycerides 164 mg/dL; Uric Acid 4.2 mg/dL (3.5-7.2); Very Low Density Lipoprotein 33 mg/dL (5-40)
== END | disposition home or self-care (01) ==
LOC: MTLAB 09:38
PROVIDERS: PCP Family Medicine; Referring Provider Family Medicine; Visit Provider Family Medicine
DX: E78.5 Hyperlipidemia, unspecified (principal); I10 Essential (primary) hypertension
CPT/HCPCS: 36415; 80053; 80061; 81002; 84550; 85025

== ENCOUNTER → 2024-12-26 | Outpatient (CLI) | payer MEDICARE, OTHER, SELFPAY ==
--- NOTE | 2024-12-26 06:47 | ECHOD_ITS ---
Reason For Study Reason For Study: Dyspnea/SOB Procedure This was a 2D Doppler, Color Flow transthoracic echocardiogram. Exam performed in department. Left Ventricle Normal LV size. The left ventricular ejection fraction is 60 %. Stage 1 diastolic dysfunction. No regional wall motion abnormalities noted. Right Ventricle Normal RV size. Normal systolic function. Atria Normal left atrium. Normal right atrium. Mitral Valve Normal mitral valve. Tricuspid Valve Normal tricuspid valve. Mild tricuspid valve insufficiency. Pulmonary artery systolic pressure is 33 mmHg. Aortic Valve Trisinus/trileaflet aortic valve. Pulmonic Valve Normal pulmonic valve. Great Vessels Normal aortic root. The pulmonary artery is normal size. Inferior vena cava collapse with respiration. Pericardium/Pleural No pericardial effusion. MMode/2D Measurements & Calculations LVIDd: 5.2 cm IVSd: 1.1 cm Ao root diam: 3.2 cm LVIDs: 2.9 cm LVPWd: 1.2 cm RVDd: 3.5 cm FS: 43.8 % LAV(MOD-bp): 56.1 ml LVAd ap4: 27.1 cm2 SV(MOD-sp4): 49.0 ml LAV(MOD-bp) Indexed: 24.4 ml/m2 LVLd ap4: 7.5 cm SI(MOD-sp4): 21.3 ml/m2 LAV(MOD-sp2): 48.5 ml EDV(MOD-sp4): 80.0 ml LAV(MOD-sp4): 57.5 ml EDV(sp4-el): 83.0 ml LVAs ap4: 15.2 cm2 LVLs ap4: 6.2 cm ESV(MOD-sp4): 31.0 ml ESV(sp4-el): 31.7 ml EF(MOD-sp4): 61.2 % EF(sp4-el): 61.8 % SV(sp4-el): 51.3 ml LA A4 area: 20.1 cm2 LA dimension(2D): 4.6 cm RA A4 area: 13.5 cm2 TAPSE: 2.5 cm Time Measurements MV dec time: 0.17 sec Doppler Measurements & Calculations MV E max florin: 79.9 cm/sec Lat Peak E' Florin: 9.4 cm/sec Med Peak E' Florin: 6.6 cm/sec MV A max florin: 95.5 cm/sec E/E' lat: 8.5 E/E' med: 12.1 MV E/A: 0.84 Ao V2 max: 129.7 cm/sec LV V1 max: 114.6 cm/sec MV dec slope: 459.1 cm/sec2 Ao max P.7 mmHg LV V1 max P.3 mmHg Ao V2 mean: 89.9 cm/sec Ao mean P.7 mmHg Ao V2 VTI: 30.7 cm PA V2 max: 129.0 cm/sec TR max florin: 277.0 cm/sec TR max P.7 mmHg ECHO/Echo Complete Interpretation Summary Normal LV size. The left ventricular ejection fraction is 60 %. Stage 1 diastolic dysfunction. Mild tricuspid valve insufficiency. Structurally normal valves. Ordering Physician: Christiano Yuan Referring Physician: Seng Willoughby Performed By: Fabiana Gibbs, RDCS, RVT
--- OUTSIDE RECORDS SUMMARY | 2024-12-26 06:49 | XMS RPT_ITS | CCD ---
Author Organization [facility] CliniSyar Care Team Providers Care Food Service Order Clerk Name Role Phone SELF, SELF Referring Unavailable GEORGIANA MCFADDEN Primary Care Unavailable Georgiana Florez Primary Care Provider Unava nereyda Littlejohn MD, Georgiana Mendiola Unavailable Dr. Georgiana Mcfadden Primary Care Provider [phone] Dr. Georgiana Mcfadden Referring Provider Dr. Skip Landry Attending Provider [phone] Skip Landry Other Provider Dr. Christiano Yuan Attending Provider Dr. Skip Landry Referring Provider Dr. Skip Landry Admit Provider Dr. Georgiana Mcfadden Primary Care Provider [phone] Dr. Georgiana Mcfadden Referring Provider Dr. Skip Landry Attending Provider [phone] Georgiana Mcfadden Primary Care Provider [phone] Dr. Georgiana Mcfadden Referring Provider Dr. Skip Landry Attending Provider Dr. Skip Landry Other Provider Dr. Georgiana Mcfadden Primary Care Provider [phone] Dr. Georgiana Mcfadden Referring Provider Asha FRYE, BRIEF WRITER-C Tati Mckenzie Attending Provider Dr. Georgiana Mcfadden Primary Care Provider Dr. Georgiana Mcfadden Referring Provider Dr. Christiano Yuan Attending Provider Dr. Georgiana Mcfadden Primary Care Provider [phone] Dr. Georgiana Mcfadden Referring Provider Dr. Christiano Yuan Attending Provider Dr. Georgiana Mcfadden Primary Care Provider [phone] Dr. Georgiana Mcfadden Referring Provider Dr. Skip Landry Attending Provider [phone] Pantera Cervantes Attending Provider [phone] Georgiana Mcfadden Primary Care Provider [phone] Dr. Georgiana Mcfadden Referring Provider Dr. Pantera Cervantes Attending Provider [phone] Skip Landry Attending Provider [phone] Georgiana Mcfadden MD Primary Care Provider Dr. Georgiana Littlejohn MD Attending Provider Eron KAYE, Dr. Georgiana Mendiola Referring Provider Fartun KAYE, Dr. Georgiana Camarena Referring Provider Dr. Christiano Yuan MD Attending Provider [phone] Georgiana Mcfadden Referring Unavailable Georgiana Mcfadden Primary Care Unavailable Georgiana Mcfadden Attending Unavailable Georgiana Mcfadden Referring Unavailable Georgiana Mcfadden Primary Care Unavailable Sawyer Montenegro Attending Unavailable Georgiana Mcfadden Referring Unavailable Christiano Yuan Attending Unavailable Georgiana Mcfadden Primary Care Unavailable Georgiana Mcfadden Referring Unavailable SchGeorgiana quezada Primary Care Unavailable Pantera Cervantes Attending Unavailable Georgiana Mcfadden Attending Unavailable SchGeorgiana quezada Primary Care Unavailable SchGeorgiana quezada Referring Unavailable Schdamien, Georgiana Camarena Primary Care Unavailable Georgiana Mcfadden Attending Unavailable Georgiana Mcfadden Primary Care Unavailable Edd Nur Attending Unavailable Edd Nur Referring Unavailable Kwabena, [place] Attending Unavailable Christiano Yuan Referring Unavailable Georgiana Mcfadden Primary Care Unavailable Georgiana Littlejohn Attending Unavailable Georgiana Littlejohn Referring Unavailable Georgiana Mcfadden Primary Care Unavailable Medications Current Medications Medication Drug Class(es) [...] 09-24-2020 acetaminophen (TYLENOL) tabl et 1,000 mg [id number] actuat albuterol 0.09 mg/actuat metered dose inhaler (1 source) beta2-Adrenergic Agonist Start: 11-29-2024 Albut erica Sulfate 90 mcg/actuation HFA aerosol inhaler Active INHALATION November 29, 2024 12:00am ease breathing albuterol 0.833 mg/ml / ipratropium bromide 0.167 mg/ml inhalation solution (1 source) Anticholinergic, beta2-Adrenergic Agonist Start: 09-24-2020 1 ampule, Inhal ation, EVERY 4 HOURS WHILE AWAKE, First dose on Thu09/24/20 at 2000 allopurinol 300 mg oral tablet (16 sources) Xanthine Oxidase Inhibitor Start: 12-12-2019 Allopurinol 300 mg tablet Active 1 {tbl} PO DAILY December 12, 2019 12:00am Check with primary doctor Start: 12-12-2019 take 1 tablet by amanda th once daily Allopurinol Active 1 TABLET PO DAILY December 12, 2019 12:00am atorvastatin 20 mg oral tablet (16 sources) HMG-CoA Reductase Inhibitor Start: 09-24-2020 take 10 mg by mouth once daily 10 mg, Oral, NIGHTLY, First dose on Thu09/24/20 at 2100 Start: 12-12-2019 Atorvastatin 1 0 mg tablet Active 1 {tbl} PO DAILY December 12, 2019 12:00am cholesterol Start: 12-12-2019 take 1 tablet by amanda th once daily Atorvastatin Active 1 TABLET PO DAILY December 12, 2019 12:00am colestipol hydrochloride 1000 mg oral tablet (14 sources) Bile Acid Sequestrant Start: 10-16-2023 End: 08-19-2024 Colestipol 1 gram tablet Active 2 g PO TWICE A DAY 120 August 19, 2024 11:47am Start: 08-17-2023 End: 08-20-2023 Colestipol 1 gram tablet Dis continued 1 g PO TWICE A DAY 60 August 17, 2023 12:00am August 20, 2023 8:38am Diarrhea Diarrhea, unspecified Start: 07-22-2023 End: 10-16-2023 Colestipol 1 gram tablet Dis continued 1 g PO DAILY 30 0 August 21, 2023 8:10am October 16, 2023 7:18am finasteride 5 mg oral tablet (8 sources) 5-alpha Reductase Inhibitor Start: 11-26-2021 take 1 tablet by mouth at bedtime Finasteride 5 mg tablet Active 5 mg PO AT BEDTIME November 26, 2021 12:00am losartan potassium 50 mg oral tablet (20 sources) Angiotensin 2 Receptor Fan Start: 11-26-2021 End: 08-09-2024 take 1 tablet by mouth once daily Losartan 50 mg tablet Active 50 mg PO DAILY 90 August 09, 2024 3:41pm mirtazapine 7.5 mg oral tablet (1 source) Start: 04-22-2024 take 1 tablet by mouth once daily Mirtazapine 7.5 mg tablet Active 7.5 mg PO daily April 22, 2024 1:00am Multiple Vitamins-Minerals (THERAPEUTIC MULTIVITAMIN-FLAT GRINDER OPERATOR ALS) tablet (2 sources) take 1 tablet by mouth once daily Multiple Vitamins-Minerals (THERAPEUTIC MULTIVITAMIN-FLAT GRINDER OPERATOR ALS) tablet Take 1 tablet by mouth daily CENTRUM SILVER 0 Active Qtqeyhmv-Jhc-Ur-Ly copen-Lutein (Centrum Silver Men) 300-600-300 mcg tablet (5 sources) Start: 12-12-2019 take 300-600 tablets by mouth once daily Meoyzkpg-Wwt-Ix-Ly copen-Lutein (Centrum Silver Men) 300-600-300 mcg tablet Active 1 TABLET PO DAILY December 12, 2019 8:50am Start: 12-12-2019 take 300-600 tablets by mouth once daily Gwpnhcib-Pzw-Xd-Lycopen-Lutein (Centrum Silver Men) 300-600-300 mcg tablet Active 1 TABLET PO DAILY December 11, 2019 11:00pm Fw-Wbb-Eymoe-T3-Xgzopvq-Wfcu in (Centrum Silver Men) 300-600-300 mcg tablet (7 sources) Start: 12-12-2019 Sw-Dxy-Anfrd-E5-Yddmmly-Cbre in (Centrum Silver Men) 300-600-300 mcg tablet Active 1 {tbl} PO DAILY December 12, 2019 12:00am Check with primary doctor Start: 12-12-2019 take 300-600 tablets by mouth once daily Lg-Sxu-Eevqd-Z7-Sgyjbhd-Fsotro (Centrum Silver Men) 300-600-300 mcg tablet Active 1 TABLET PO DAILY December 11, 2019 11:00pm Start: 12-12-2019 take 300-600 tablets by mouth once daily Zu-Jbf-Houzo-L2-Pwjzpjk-Nllhqe (Centrum Silver Men) 300-600-300 mcg tablet Active 1 TABLET PO DAILY December 12, 2019 12:00am oxyCODONE hydrochloride 5 mg oral tablet (2 [...] Substituted for Omeprazole (PRILOSEC). polyethylene glycol 3350 16759 mg powder for oral solution (1 source) Osmotic Laxative Start: 09-24-2020 17 g, Oral, DAILY, First dose on Thu09/24/20 at 1645 sennosides, shelter 8.6 mg oral tablet (1 source) Start: 09-24-2020 take 1 tablet by mouth once daily for constipation 8.6 mg (1 tablet), Oral, NIGHTLY, First dose on Thu09/24/20 at 2100 First line therapy for constipation sildenafil 100 mg oral tablet (15 sources) Phosphodiesterase 5 Inhibitor Start: 12-12-2019 Sildenafil 100 mg tablet Active 100 NMA PO NEEDED as needed for ED December 12, 2019 12:00am Start: 12-12-2019 Sildenafil Act yunior 100 EACH PO NEEDED December 12, 2019 12:00am VIAGRA 100 MG TA BS 1 tablet by mouth as directed as needed sildenafil [id number] Terena Pena RN 3 ml sodium chloride 9 mg/ml injection (3 sources) Start: 09-24-2020 10 mL, Intrave nous, EVERY 12 HOURS SCHEDULED (2 times per [...] at 1617 After every IV line use tamsulosin hydrochloride 0.4 mg oral capsule (20 sources) alpha-Adrenergic Fan Start: 05-20-2021 End: 11-26-2021 take 1 capsule by mouth at bedtime Tamsulosin 0.4 mg capsule Active 0.4 mg PO AT BEDTIME November 26, 2021 3:35pm Completed/Discontinued Medications Medication Drug Class(es) Dates Sig (Normalized) Sig (Original) acetaminophen 325 mg / oxyCODONE hydrochloride 5 mg oral tablet (12 sources) Opioid Agonist Start: 04-06-2020 End: 04-12-2020 Oxycodone-Acetamino phen 1 TABLET tablet Discontinued 1 - 2 {tbl} PO EVERY 4 HOURS NEEDED as needed for Pain 30 6 April 06, 2020 April 11, 2020 1:00am April 12, 2020 1:03am Acute appendicitis Unspecified acute appendicitis Start: 04-06-2020 End: 04-12-2020 take 1 tablet by mouth every four hours as needed Oxycodone-Acetaminophen Discontinued 1 - 2 TABLET PO EVERY 4 HOURS NEEDED 14 11April 06, 2020 April 12, 2020 1:03am apixaban 5 mg oral tablet (20 sources) Factor Xa Inhibitor Start: 06-19-2020 End: 08-22-2020 take 1 tablet by mouth twice daily Apixaban 5 mg tablet Discontinued 5 mg PO TWICE A DAY 180 1 June 27, 2020 2:45pm August 22, 2020 9:55am Start: 06-01-2020 End: 06-19-2020 take 2 tablets by mouth twice daily, then take 1 tablet by mouth twice daily Apixaban 5 MG tablet Discontinued 10 mg PO TWICE A DAY 60 0 June 01, 2020 1:00am June 19, 2020 11:14am 10 mg twice daily for 5 days and then 5 mg twice daily to continue Start: 06-01-2020 End: 06-19-2020 take 10 mg by mouth twice daily, then take 5 mg by mouth twice daily Apixaban Discontinued 10 MG PO TWICE A DAY 60 June 01, 2020 1:00am June 19, 2020 11:14am 10 mg twice daily for 5 days and then 5 mg twice daily to continue azithromycin 250 mg oral tablet (12 sources) Macrolide Antimicrobial Start: 05-30-2020 End: 06-03-2020 take 1 tablet by mouth once daily Azithromycin 250 MG tablet Discontinued 250 mg PO DAILY May 30, 2020 1:00am June 03, 2020 7:58am cough calcium chloride 0.0014 meq/ml / potassium chloride [...] End: 09-24-2020 celecoxib (CELEBREX) capsule 200 mg dexamethasone 4 mg oral tablet (12 sources) Corticosteroid Start: 06-03-2020 End: 08-21-2020 take 6 mg by mouth once daily Dexamethasone 4 MG tablet Discontinued 6 mg PO DAILY 5 June 03, 2020 1:00am August 21, 2020 8:49pm Start: 06-03-2020 End: 08-21-2020 take 6 mg by mouth once daily Dexamethasone Discontinu ed 6 MG PO DAILY June 03, 2020 1:00am August 21, 2020 8:49pm doxycycline hyclate 100 mg oral capsule (16 sources) Tetracycline-class Drug Start: 02-10-2022 End: 04-28-2022 take 1 capsule by mouth twice daily Doxycycline Hyclate 100 mg capsule Discontinued 100 mg PO TWICE A DAY 28 February 24, 2022 12:00am April 28, 2022 3:51pm famotidine 20 mg oral tablet (1 source) Histamine-2 Receptor Antagonist Start: 09-24-2020 End: 09-24-2020 famotidine (PEPCID) tablet 20 mg Start: 09-24-2020 End: 09-24-2020 famotidine (PEPCID) tablet 2 0 mg gabapentin 100 mg oral capsule (1 source) Anti-epileptic Agent Start: 09-24-2020 End: 09-24-2020 gabapentin (NEURONTIN) capsule 100 mg Start: 09-24-2020 End: 09-24-2020 gabapentin (NEURONTIN) capsu le 100 mg 12 hr guaiFENesin 1200 mg extended release oral tablet (12 sources) Start: 06-03-2020 End: 08-21-2020 take 1 tablet by mouth twice daily Guaifenesin 1,200 MG tablet extended release 12hr Discontinued 1200 mg PO TWICE A DAY 14 June 03, 2020 1:00am August 21, 2020 8:49pm hydroCHLOROthiazide 25 mg oral tablet (20 sources) Thiazide Diuretic Start: 01-07-2022 End: 02-10-2022 take 1 tablet by mouth once daily Hydrochlorothiazide 25 mg tablet Discontinued 25 mg PO DAILY January 07, 2022 12:00am February 10, 2022 8:09am Start: 09-26-2020 take 25 mg by mouth once daily 25 mg, Oral, DAILY, First dose on Thu09/26/20 at 0900 Start: 06-03-2020 End: 11-26-2021 Hydrochlorothiazide 25 mg ta blet Discontinued 25 mg PO DAILY 90 May 06, 2021 4:28pm November 26, 2021 3:59pm Hold for SBP less than 120 mmHg and if persistent low BP, decrease to 12.5 mg daily hydroCHLOROthiazide 25 mg / triamterene 37.5 mg oral tablet (1 source) Potassium-sparing Diuretic, Thiazide Diuretic take 1 tablet by mouth once daily TRIAMTERENE-HCTZ 37.5-25 MG TABS 1 tablet by mouth once a day triamterene-hydrochlorothiazid [id number] Terena Pena RN levoFLOXacin 500 mg oral tablet (12 sources) Quinolone Antimicrobial [facility] t: En d: 20 take 1 tablet by mouth once daily Levofloxacin 500 MG tablet Discontinued 500 mg PO DAILY 10 21April 06, 2020 1:00am April 11, 2020 1:00am April 12, 2020 1:03am Jekvnw-Yrmdznir-Dbbxxc e (Zenpep) 40,000-126,000- 168,000 unit capsule,delayed release(DR/EC) (1 source) [facility] t: 24 En d: 25 take [id number] 00 capsules by mouth three times daily Nwvtlw-Nrxgxezv-Vrkbagb (Zenpep) 40,000-126,000- 168,000 unit capsule,delayed release(DR/EC) Discontinued 1 NMA PO THREE TIMES A DAY 270 90 April 22, 2024 1:00am November 29, 2024 3:47pm ralzfhbm-tpc-mn-lycope n-lutein (1 source) take 1 tablet by mouth once daily CENTRUM SILVER ADULT 50+ TABS 1 tablet by mouth once a day ffzxlkvv-rny-mb-lycopen-lutein [id number] Terena Pena RN omeprazole 20 mg delayed release oral capsule (20 sources) Proton Pump Inhibitor [facility] t: En d: take 1 capsule by mouth once daily Omeprazole 20 mg capsule,delayed release(DR/EC) Discontinued 20 mg PO DAILY January 07, 2022 12:00am February 10, 2022 8:09am Start: 12-12-2019 End: 11-26-2021 Omeprazole 20 mg capsule,del ayed release(/EC) Discontinued 1 {tbl} PO DAILY December 12, 2019 12:00am November 26, 2021 3:35pm Check with primary doctor Start: 12-12-2019 End: 11-26-2021 take 1 tablet by mouth once daily Omeprazole Discontinued 1 TABLET PO DAILY December 12, 2019 12:00am November 26, 2021 3:35pm take 1 tablet by amanda th once daily OMEPRAZOLE MAGNESIUM 20 MG TBEC 1 tablet by mouth once a day omeprazole magnesium [id number] Terena Pena RN psyllium 520 mg oral capsule (14 sources) Start: 05-20-2021 End: 11-26-2021 Psyllium Husk (Metamucil) 0. 52 gram capsule Discontinued 2.08 g PO TWICE A DAY May 20, 2021 1:00am November 26, 2021 3:35pm take 1 dose by mouth once daily psyllium (KONSYL) 28.3 % PACK Take 1 packet by mouth daily 0 Active triamcinolone acetonide 40 mg/ml injectable suspension (4 sources) Corticosteroid Start: 09-16-2017 End: 09-16-2017 inject 1 mg by intramuscular injection once Kenalog (triamcinolone acetonide) 10 mg/mL suspension for injection Discontinued 1 MG IM ONCE 0.1 September 16, 2017 2:40pm September 16, 2017 3:12pm Problems Active Problems Problem Classification Problem Date Documented Da te Episodic/Chronic Acquired foot deformities (20 sources) Foot-drop; Translations: [Foot drop, left foot] Onset: 1 11-23-2021 Episodic Diseases of white blood cells (12 sources) Leukocytosis; Translations: [Elevated white blood cell count, unspecified] 06-05-2020 Chronic Disorders of lipid metabolism (15 sources) Hyperlipidemia; Translations: [Hyperlipidemia, unspecified] Onset: 5 08-17-2020 Chronic Esophageal disorders (12 sources) Gastroesophageal reflux disease; Translations: [Gastro-esophageal reflux disease without esophagitis] 08-08-2021 Chronic Comment on above: per pt, controlled o n meds Essential hypertension (16 sources) Essential hypertension; Translations: [Essential (primary) hypertension] Onset: 5 07-22-2021 Chronic Comment on above: per pt, controlled o n meds Hyperplasia of prostate (1 source) Benign prostatic hyperplasia with lower urinary tract symptoms; Translations: [Benign prostatic hyperplasia with lower urinary tract symptoms] Onset: 4 Chronic Neoplasms of unspecified nature or uncertain behavior (20 sources) 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; Translations: [Neoplasm of uncertain behavior of connective and other soft tissue] Onset: 2 08-07-2021 Episodic Nonmalignant breast conditions (8 sources) Breast lump; Translations: [Unspecified lump in the right breast, unspecified quadrant] 03-27-2023 Episodic Other connective tissue disease (1 source) Palmar fascial fibromatosis [Dupuytren]; Translations: [Contracture of palmar fascia] Onset: 2 08-07-2021 Episodic Other gastrointestinal disorders (1 source) Irritable bowel syndrome with diarrhea; Translations: [Irritable bowel syndrome with diarrhea] 10-15-2023 Chronic Other gastrointestinal disorders (12 sources) Small bowel bacterial overgrowth syndrome; Translations: [Other specified diseases of intestine] 02-10-2022 Episodic Other gastrointestinal disorders (8 sources) Excessive flatus; Translations: [Flatulence] 01-03-2022 Episodic Other gastrointestinal disorders (1 source) Other specified diseases of intestine; Translations: [Other specified disorders of intestine] Episodic Other gastrointestinal disorders (4 sources) Flatulence; Translations: [Flatulence, eructation, and gas pain] 05-29-2023 Episodic Other gastrointestinal disorders (2 sources) Diarrhea; Translations: [Diarrhea, unspecified] 08-17-2023 Episodic Other hematologic conditions (12 sources) Splenic hemorrhage; Translations: [Infarction of spleen] 08-07-2021 Episodic Other hematologic conditions (4 sources) Infarction of spleen; Translations: [Other diseases of spleen] Episodic Other lower respiratory disease (1 source) Shortness of breath; Translations: [Shortness of breath] Onset: 5 Episodic Other nervous system disorders (9 sources) Neuropathy of lower limb; Translations: [Unspecified mononeuropathy of left lower limb] 11-23-2021 Chronic Other nervous system disorders (3 sources) Left leg peripheral neuropathy; Translations: [Unspecified mononeuropathy of left lower limb] 11-23-2021 Chronic Other screening for suspected conditions (not mental disorders or infectious disease) (5 sources) Ultrasonography of breast abnormal; Translations: [Other abnormal and inconclusive findings on diagnostic imaging of breast] 06-29-2023 Episodic Pleurisy; pneumothorax; pulmonary collapse (20 sources) Pleural effusion; Translations: [Pleural effusion, not elsewhere classified] Episodic Comment on above: 09/24/20 Right thorac otomy, total pulmonary decortication for right lung entrapment Residual codes; unclassified (12 sources) Obstructive sleep apnea syndrome; Translations: [Obstructive sleep apnea (adult) (pediatric)] 08-17-2020 Chronic Residual codes; unclassified (2 sources) History of thoracic surgery; Translations: [Other specified postprocedural states] Onset: Episodic Residual codes; unclassified (12 sources) Family history of cancer of colon; Translations: [Family history of malignant neoplasm of digestive organs] 11-23-2021 Episodic Residual codes; unclassified (1 source) Family history of malignant neoplasm of digestive organs; Translations: [Family history of malignant neoplasm of gastrointestinal tract] Episodic Residual codes; unclassified (11 sources) History of hernia repair; Translations: [Other specified postprocedural states] 11-23-2021 Episodic Comment on above: September 06, 2021 outsi de chest x-ray now within PACS. Atelectasis noted. Some gastric air. Hiatal hernia repair appears to be intact on this view.Skip Landry M.D., F.A.C.S. Residual codes; unclassified (3 sources) Other specified postprocedural states; Translations: [Personal history of surgery to other organs] Episodic Past or Other Problems Problem Classification Problem Date Documented Date Episodic/Chronic Other diseases of veins and lymphatics (1 source) Venous insufficiency (chronic) (peripheral); Translations: [Venous insufficiency (chronic) (peripheral)] Onset: 02-13-2024 Episodic Unclassified (1 source) Problem Viral infection (12 sources) COVID-19; Translations: [Severe acute respiratory syndrome coronavirus 2 (SARS-CoV-2) detected] Onset: 05-30-2020 11-23-2021 Episodic Results Test Name Value Interpretation Reference Range Facility Cardiology Visit Reporton Cardiology Visit Report [facility] [address] [place] [address] OFFICE VISIT Date of Service: 11/29/24 MR#: [id number] Acct: [id number] Name: SUZETTE PALOMINO Rep #: [id number] : 1950 Provider: Dr. Christiano Yuan MD Age/Sex: 74/M [place] [facility] [place] Signed HPI HPI History of Present Illness Details: Pleasant 74-year-old gentleman who presents for follow-up visit. He had initially seen us with no previous cardiac history other than hypertension who had previously been on bisoprolol. This was stopped in October 2019. He was started on hydrochlorothiazide later on. His current history dates to March 2020 when he was admitted with acute appendicitis and had an appendectomy. At that time he was noted to have a high hemoglobin, fibrinogen, and also an elevated natruretic peptide level. He presented in May 2020 with hypoxemia was diagnosed with Covid pneumonia and was positive PCR for COVID-19. At that time he was noted to have evidence of right lobar consolidation as well as a right pleural effusion. He was treated with remdesivir as well as Decadron. CTA was performed with no definitive evidence of pulmonary emboli but he was started on Eliquis. He was negative for DVT. D-dimer at that time was elevated. He has been on hydrochlorothiazide since then and has been tracking his blood pressures which have been fairly well controlled. His pulse rate however has been steadily inching up since the bisoprolol was discontinued. He still complains of shortness of breath when he exerts himself significantly and his resting heart rate takes a while to come back to normal. His oxygenation level however appears to be fairly stable in the high 90s. He has had no dizziness or diaphoresis no near syncope or syncope. He did also present with a new left foot drop for which she had a CT of the head and neck and brain all of which were negative, and an MRI of the brain which was also negative. He has had an EMG regarding his left foot drop. That has since improved. In follow-up of his CT findings it had demonstrated in 2020 a loculated pleural effusion for which he was sent to [facility] underwent a right thoracotomy with decortication. Incidental finding of mild coronary calcification was noted he underwent a stress myocardial perfusion stress test in November 2020 with no evidence of ischemia and his echocardiogram demonstrated preserved ejection fraction. He underwent successful hernia surgery in July 2022. Overall he has been in a good cardiovascular state of health except for some shortness of breath with exertion. He tracks his blood pressures and they have been in the normotensive range and he also had a pulmonary function test done through the studio manager office which demonstrated evidence of mild obstructive ventilatory component with an FEV1 of more than 70% predicted there was no significant measurable clinical response to beta agonist and mild restrictive component confirmed in the lung volumes. He continues to follow with the studio manager and he tells me that this test will be repeated in December. He denies any chest pain or paroxysmal nocturnal dyspnea and has only made about pedal edema. 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 Required: No Accompanied by: Self Is patient in pain?: No Allergies No Known Allergies Allergy (Verified 11/29/24 15:46) Medications ???Medication ???Instructions ???Recorded ???Confirmed ???Type allopurinol 300 mg tablet 1 tab PO DAILY Check with primary 12/12/19 11/29/24 History doctor atorvastatin 10 mg tablet 1 tab PO DAILY cholesterol 0 11/29/24 History umbqewct-we-ygtru 300 mcg-K 60 1 tab PO DAILY Check with primary 12/12/19 11/29/24 History mcg-lycop 600 mcg-lutein 300 mcg doctor tablet (Centrum Silver Men) sildenafil 100 mg tablet 100 ea PO PRN PRN ED 12/12/1911/15 History finasteride 5 mg tablet 5 mg PO QHS 11/26/21 11/29/24 Hist ory tamsulosin 0.4 mg capsule 0.4 mg PO QHS 11/26/21 11/29/24 Hi story mirtazapine 7.5 mg tablet 7.5 mg PO QDAY 04/22/24 11/29/24 H istory losartan 50 mg tablet 50 mg PO DAILY #90 tabs 08/09/24 0 11/29/24 Rx colestipol 1 gram tablet 2 g (2 x 1 gram) PO BID #120 08/1911/29/24 Rx TABLETS albuterol sulfate 90 mcg/actuation inhalation ease breathing 11/29/24 History aerosol inhaler Have you fallen in the past year?: No PFSH Medical History (Re (more content not included)... Normal [facility] Re-Evalution OTon 07-13-2024 Re-Evalution OT [facility] Occupational Therapy [facility] [address] [place] [address] / REEVALUATION / MEDICARE RECERTIFICATION OCCUPATIONAL THERAPY MR#: [id number] Acct: [id number] Name: SUZETTE PALOMINO Rep #: [id number] : 1950 74 From: Saida PADILLA/Lillie T Referring Dr.: Dr. Georgiana Littlejohn MD Status: REG RCR Insurance: MEDICARE PART A B Eval Date: COMMERCIAL OTHER Re-Evaluation Intro: Dr. Georgiana Littlejohn MD, It has been my pleasure to treat SUZETTE PALOMINO over the last 6 visits for Palmar Fascial fibromatosis (Dupuytren's). Please see the progress note below for an update on the occupational therapy plan of care! Subjective Subjective: pt arrives states fingers are very stiff this am- he is using heat to decrease stiffness overall, he is happy with his progress Objective Objective/Function: pt demo full composite fist and full finger extension- pt does report stiffness with initial movement. pt states he does report numbness on radial side of his LF. therapist ed. this could take up to a year to return or permit loss from sx. pt demo understanding. pt states he is performing scar mtg. Plan Plan Frequency: 1x/Week Duration: 3 Weeks Plan: pt to see on Goals Goals Patient Goals: Regain Mobility, Use Hand/Wrist/Arm Normally Again and Resume Former Household Responsibilities (Cooking,Cleaning,Aman d, etc.) Goal:Daily scar massage when approriate: Yes Goal:ROM equal to unaffected hand: Yes Goal:Permit Review Assistant/Pinch strength at least 75% of unaffected hand: Yes Goal:No pain with affected hand use: Yes Goal:Full use of affected hand in daily activities including work: Yes Goal:Improvement in sensation documented by Realitos-Dusty monofiliaments: Yes Other Goal: orthosis use: pt will demo understanding of using orthosis to decrease risk of contracture by end of 1st session. Anticipated Interventions Anticipated Interventions Anticipated Interventions: A/AAROM/PROM, Strengthening, Edema Control, Scar Care, Triggerpoint Release, Sensory Retraining, Wound Care, Modalities, Orthoses, Joint Protection/Energy Conservation, Ergonomic Education, Fine Motor Coord/Jake, Education re assistive Equipment, Education re Diagnosis and Home Program Re-Evaluation Ending Re-evaluation ending: Please do not hesitate to contact me at [phone] by phone or if you have questions or concerns regarding this new plan of care! Sincerely, Saida Cruz, OTR/L, T 07/13/24 1222 CC: Dr. Georgiana Mcfadden MD; Dr. Georgiana Littlejohn MD MK Signed For Medicare only, by signing this I certify the plan of care. Physicians Signature Date Normal [facility] CBC W/Diff, Automatedon 06-18 Absolute Lymph 1.62 X10 3/uL Normal 0.83-4.[address] [facility] Comment on above: Performed By: #### L 501.1400, L400, L500.4100, L500.4050, L100.0100 #### [facility] Laboratory [address] [place], [address] Absolute Neut 2.9 X10 3/uL Normal 2.0-7.[address] [facility] Comment on above: Performed By: #### L 501.1400, L4, L500.4100, L500.4050, L100.0100 #### [facility] [address] [place], [address] Basophils/100 WBC (Bld) 1.7 % High 0-1 [facility] Comment on above: Performed By: #### L 501.1400, L400.2010, L500.4100, L500.4050, L100.0100 #### [facility] [address] [place], [address] Eosinophils/100 WBC (Bld) 3.4 % Normal 0-[address] [facility] Comment on above: Performed By: #### L 501.1400, L4, L500.4100, L500.4050, L100.0100 #### [facility] [address] [place], [address] Erythrocyte distribution width (RBC) [Ratio] 13.5 % Normal 11.6-14.[address] [facility] Comment on above: Performed By: #### L 501.1400, L4, L500.4100, L500.4050, L100.0100 #### [facility] [address] [place], [address] Hematocrit (Bld) [Volume fraction] 43.1 % Normal 40-[address] [facility] Comment on above: Performed By: #### L 501.1400, L4, L500.4100, L500.4050, L100.0100 #### [facility] [address] [place], [address] Hemoglobin (Bld) [Mass/Vol] 14.7 g/dL Normal 13.0-16.[address] [facility] Comment on above: Performed By: #### L 501.1400, L400, L500.4100, L500.4050, L100.0100 #### [facility] [address] [place], [address] IG% 0.600 Normal 0.0-0.[address] [facility] Comment on above: Result Comment: IG% - Immature Granulocytes (promyelocytes, myelocytes and metamyelocytes) > 1% indicates that a LEFT SHIFT is Present. Performed By: #### L 501.1400, L400.2010, L500.4100, L500.4050, L100.0100 #### [facility] [address] [place], [address] Lymphocytes/100 WBC (Bld) 30.8 % Normal 19-[address] [facility] Comment on above: Performed By: #### L 501.1400, L4, L500.4100, L500.4050, L100.0100 #### [facility] [address] [place], [address] MCH (RBC) [Entitic mass] 30.9 pg Normal 27.0-32.[address] [facility] Comment on above: Performed By: #### L 501.1400, L4, L500.4100, L500.4050, L100.0100 #### [facility] [address] [place], [address] MCHC (RBC) [Mass/Vol] 34.1 g/dL Normal 32-36 [facility] Comment on above: Performed By: #### L 501.1400, L4, L500.4100, L500.4050, L100.0100 #### [facility] [address] [place], [address] MCV (RBC) [Entitic vol] 90.7 fL Normal 80-94 [facility] Comment on above: Performed By: #### L 501.1400, L400, L500.4100, L500.4050, L100.0100 #### [facility] [address] [place], [address] Monocytes/100 WBC (Bld) 8.7 % Normal 0-10 [facility] Comment on above: Performed By: #### L 501.1400, L4, L500.4100, L500.4050, L100.0100 #### [facility] [address] [place], [address] Neutrophils/100 WBC (Bld) 54.8 % Normal 47-[address] [facility] Comment on above: Performed By: #### L 501.1400, L4, L500.4100, L500.4050, L100.0100 #### [facility] [address] [place], [address] Nucleated RBC (Bld) [#/Vol] 0 10*3/uL Normal 0-[address] [facility] Comment on above: Performed By: #### L 501.1400, L4, L500.4100, L500.4050, L100.0100 #### [facility] [address] [place], [address] Platelet mean volume (Bld) [Entitic vol] 8.5 fL Normal 6.2-12.[address] [facility] Comment on above: Performed By: #### L 501.1400, , L500.4100, L500.4050, L100.0100 #### [facility] [address] [place], [address] Platelets (Bld) [#/Vol] 254 10*3/uL Normal 150-[address] [facility] Comment on above: Performed By: #### L 501.1400, L4, L500.4100, L500.4050, L100.0100 #### [facility] [address] [place], [address] RBC (Bld) [#/Vol] 4.75 10*6/uL Normal 4.6-6.2 [facility] Comment on above: Performed By: #### L 501.1400, L4, L500.4100, L500.4050, L100.0100 #### [facility] [address] [place], [address] RDW SD 45.7 fl High 35.1-43.[address] [facility] Comment on above: Performed By: #### L 501.1400, L400, L500.4100, L500.4050, L100.0100 #### [facility] [address] [place], [address] WBC (Bld) [#/Vol] 5.3 10*3/uL Normal 4.4-11.0 [facility] Comment on above: Performed By: #### L 501.1400, L4, L500.4100, L500.4050, L100.0100 #### [facility] [address] [place], [address] Comprehensive [facility] 07-[facility]24 Albumin [Mass/Vol] 3.8 g/dL Normal 3.2-5.0 [facility] Comment on above: Performed By: #### L 501.1400, L4, L500.4100, L500.4050, L100.0100 ####[facility] [address] [place], [address] Albumin/Globulin [Mass ratio] 1.2 {ratio} Normal 0.9-2.[address] [facility] Comment on above: Performed By: #### L 501.1400, L400, L500.4100, L500.4050, L100.0100 ####[facility] [address] [place], [address] ALK P 51 U/L Normal 45-[address] [facility] Comment on above: Performed By: #### L 501.1400, L400, L500.4100, L500.4050, L100.0100 ####[facility] [address] [place], [address] ALT [Catalytic activity/Vol] 24 U/L Normal 16-[address] [facility] Comment on above: Performed By: #### L 501.1400, L400.2010, L500.4100, L500.4050, L100.0100 ####[facility] [address] [place], [address] AST [Catalytic activity/Vol] 18 U/L Normal 15-[address] [facility] Comment on above: Performed By: #### L 501.1400, L4, L500.4100, L500.4050, L100.0100 ####[facility] [address] [place], [address] Bilirubin [Mass/Vol] 1.10 mg/dL High 0.20-1.00 [facility] Comment on above: Result Comment: For patients on eltrombopag therapy, use of Dimension Olmito TBIL is not recommended. Performed By: #### L 501.1400, L4, L500.4100, L500.4050, L100.0100 ####[facility] [address] [place], [address] BUN/CRE 19.1 RATIO Normal 10-[address] [facility] Comment on above: Performed By: #### L 501.1400, L4, L500.4100, L500.4050, L100.0100 ####[facility] [address] [place], [address] CA,Total 9.2 mg/dL Normal 8.5-10.[address] [facility] Comment on above: Performed By: #### L 501.1400, L4, L500.4100, L500.4050, L100.0100 ####[facility] [address] [place], [address] Chloride [Moles/Vol] 108 mmol/L High 98-107 [facility] Comment on above: Performed By: #### L 501.1400, L4, L500.4100, L500.4050, L100.0100 ####[facility] [address] [place], [address] CO2 [Moles/Vol] 26.0 mmol/L Normal 21.0-32.[address] [facility] Comment on above: Performed By: #### L 501.1400, L4, L500.4100, L500.4050, L100.0100 ####[facility] [address] [place], [address] Creatinine [Mass/Vol] 1.15 mg/dL Normal 0.70-1.30 [facility] Comment on above: Result Comment: The validity of the calculated GFR GFRAA in patients over 70 years has not been determined. Clinical correlation is essential. Performed By: #### L 501.1400, L4, L500.4100, L500.4050, L100.0100 ####[facility] [address] [place], [address] EST GFR - AA 80 mL/min Normal >[address] [facility] Comment on above: Result Comment: Afri can Lao GFR Calc Performed By: #### L 501.1400, L4, L500.4100, L500.4050, L100.0100 ####[facility] [address] [place], [address] GAP 5 Normal 5-[address] [facility] Comment on above: Performed By: #### L 501.1400, L4, L500.4100, L500.4050, L100.0100 ####[facility] [address] [place], [address] GFR/1.73 sq M.predicted among non-blacks MDRD (S/P/Bld) [Vol rate/Area] 66 mL/min/{1.73_m2} Normal >[address] [facility] Comment on above: Result Comment: Non- GFR Calc Performed By: #### L 501.1400, L4, L500.4100, L500.4050, L100.0100 ####[facility] [address] [place], [address] Globulin (S) [Mass/Vol] 3.3 g/dL Normal 2.2-4.2 [facility] Comment on above: Performed By: #### L 501.1400, L4, L500.4100, L500.4050, L100.0100 ####[facility] [address] [place], [address] Glucose [Mass/Vol] 95 mg/dL Normal 74-106 [facility] Comment on above: Performed By: #### L 501.1400, , L500.4100, L500.4050, L100.0100 ####[facility] [address] [place], [address] Potassium [Moles/Vol] 4.3 mmol/L Normal 3.5-5.1 [facility] Comment on above: Performed By: #### L 501.1400, , L500.4100, L500.4050, L100.0100 ####[facility] [address] [place], [address] Sodium [Moles/Vol] 140 mmol/L Normal 136-145 [facility] Comment on above: Performed By: #### L 501.1400, L4, L500.4100, L500.4050, L100.0100 ####[facility] [address] [place], [address] T PROT 7.1 g/dL Normal 6.4-8.[address] [facility] Comment on above: Performed By: #### L 501.1400, L4, L500.4100, L500.4050, L100.0100 ####[facility] [address] [place], [address] Urea nitrogen [Mass/Vol] 22 mg/dL High - [facility] Comment on above: Performed By: #### L 501.1400, L4, L500.4100, L500.4050, L100.0100 ####[facility] [address] [place], [address] Lipid Profileon 07-05-2024 Cholesterol [Mass/Vol] 134 mg/dL Normal 200 [facility] Comment on above: Result Comment: <200 mg/dL Desirable 200-240 mg/dL Borderline >240 mg/dL High Risk Performed By: #### L 501.1400, L4, L500.4100, L500.4050, L100.0100 ####[facility] [address] [place], [address] Cholesterol in HDL [Mass/Vol] 50 mg/dL Normal [facility] Comment on above: Result Comment: The drugs N-Acetylcysteine and Metamizole may falsely depress this assay. Reference Range HDL <40 mg/dL Low HDL Cholesterol HDL >or= 60 mg/dL High HDL Cholesterol Performed By: #### L 501.1400, L4, L500.4100, L500.4050, L100.0100 ####[facility] [address] [place], [address] Cholesterol in LDL [Mass/Vol] 51 mg/dL Normal 0-[address] [facility] Comment on above: Performed By: #### L 501.1400, L4, L500.4100, L500.4050, L100.0100 ####[facility] [address] [place], [address] Cholesterol in VLDL [Mass/Vol] 33 mg/dL Normal 5-[address] [facility] Comment on above: Performed By: #### L 501.1400, L400.2010, L500.4100, L500.4050, L100.0100 ####[facility] [address] [place], [address] Triglyceride [Mass/Vol] 164 mg/dL Normal [facility] Comment on above: Result Comment: The drugs N-Acetylcysteine and Metamizole may falsely depress this assay. Serum Triglycerides Reference Interval Normal <150 mg/dL Borderline high 150 - 199 mg/dL High 200 - 499 mg/dL Very High > or = 500 mg/dL Performed By: #### L 501.1400, L4, L500.4100, L500.4050, L100.0100 ####[facility] [address] [place], [address] Uric Acidon 07-05-2024 URIC 4.2 mg/dL Normal 3.5-7.[address] [facility] Comment on above: Result Comment: The drugs N-Acetylcysteine and Metamizole may falsely depress this assay. Performed By: #### L 501.1400, L4, L500.4100, L500.4050, L100.0100 ####[facility] [address] [place], [address] Urinalysis, Routine (Dipstic k)on 07-05-2024 BILIRUBIN URINE Negative Normal Negative [facility] Comment on above: Order Comment: Urine , Random Performed By: #### L 501.1400, L4, L500.4100, L500.4050, L100.0100 ####[facility] [address] [place], [address] Clarity (U) Clear Normal Clear [facility] Comment on above: Order Comment: Urine , Random Performed By: #### L 501.1400, L400, L500.4100, L500.4050, L100.0100 ####[facility] [address] [place], [address] Color (U) Yellow Normal Yellow [facility] Comment on above: Order Comment: Urine , Random Performed By: #### L 501.1400, L400.2010, L500.4100, L500.4050, L100.0100 ####[facility] [address] [place], [address] GLUCOSE, UR Normal Normal Normal [facility] Comment on above: Order Comment: Urine , Random Performed By: #### L 501.1400, L4.2010, L500.4100, L500.4050, L100.0100 ####[facility] [address] [place], [address] KETONE UR Negative Normal Negative [facility] Comment on above: Order Comment: Urine , Random Performed By: #### L 501.1400, L4, L500.4100, L500.4050, L100.0100 ####[facility] [address] [place], [address] LEUK ESTERASE Negative Normal Negative [facility] Comment on above: Order Comment: Urine , Random Performed By: #### L 501.1400, L4, L500.4100, L500.4050, L100.0100 ####[facility] [address] [place], [address] Nitrite Ql (U) Negative Normal Negative [facility] Comment on above: Order Comment: Urine , Random Performed By: #### L 501.1400, L4.2010, L500.4100, L500.4050, L100.0100 ####[facility] [address] [place], [address] OCCULT BLOOD-UR Negative Normal Negative [facility] Comment on above: Order Comment: Urine , Random Performed By: #### L 501.1400, L400, L500.4100, L500.4050, L100.0100 ####[facility] [address] [place], [address] pH UR 6.0 Normal 5.0 - 8.[address] [facility] Comment on above: Order Comment: Urine , Random Performed By: #### L 501.1400, L400.2011, L500.4100, L500.4050, L100.0100 ####[facility] [address] [place], [address] PROT DIPSTX 15 mg/dl Abnormal Negative [facility] Comment on above: Order Comment: Urine , Random Performed By: #### L 501.1400, L400.2010, L500.4100, L500.4050, L100.0100 ####[facility] [address] [place], [address] SP.GR. DIPSTX 1.020 Normal 1.002-1.[address] [facility] Comment on above: Order Comment: Urine , Random Performed By: #### L 501.1400, L400.2010, L500.4100, L500.4050, L100.0100 ####[facility] [address] [place], [address] UROBILI Normal Normal Normal [facility] Comment on above: Order Comment: Urine , Random Performed By: #### L 501.1400, L400.2010, L500.4100, L500.4050, L100.0100 ####[facility] [address] [place], [address] OT General Evaluationon 05-19 OT General Evaluation [facility] Occupational Therapy [address] [place] [address] / REHABILITATION SERVICES INITIAL EVALUATION MR#: [id number] Acct: [id number] Name: SUZETTE PALOMINO Rep #: [id number] : 1950 74 From: Saida PADILLA/L, CHT Referring Dr.: Dr. Georgiana Littlejohn MD Status: REG RCR Insurance: MEDICARE PART A B Eval Date: COMMERCIAL OTHER Patient's Visit Information Visit Information Visit Information: SUZETTE PALOMINO is a 74 year old M, referred to Occupational Therapy by Dr. Georgiana Littlejohn MD, with a diagnosis of Palmar Fascial fibromatosis (Dupuytren's). Date of Evaluation: 06/08/24 Occupational Therapist: Saida Cruz, OTR/RYAN Moreira Subjective Subjective: This 74 year old male was seen for OT eval with dx of Palmar fascial fibromatosis - Dupuytren contracture. pt states after he struggled with straightening his right RF and LF for a few years and decided to have sx. pt underwent open fasciotomy on 06/02/24. pt arrives today with paddle orthosis on. pt states he is limited with ADLs at this time due to healing wound and incision. pt is retired from [employer] and enjoys playing golf. Pt would like to return to [employer] by September. pt states he did receive post-surgical exercise from his therapist at . pt demo understanding of the exercise for this therapist- However states he is just doing the exercise 2-3x a day not the 6- 8x a day he was instructed to do. Pain right hand: Current Pain Intensity: 3 Pain Intensity Range: 5 ROM Wrist: right/left WNL MP: right LF +5 /45 left 0/90 RF +10/55 left 0/85 ROM Comments: Right LF PIP 0/60 DIP 0/30 left 0/95 DIP 0/60 right RF PIP +6/70 DIP 0/35 left 0/90 DIP 0/60 slight bruising/min edema noted on right hand Strength Permit Review Assistant: right NT left 90# Lateral Pinch: right NT left 28# Tripod Pinch: right NT left 20# Strength Comments: will test right at later date Sensation Thumb: right 2.83 left 2.83 Little: right 3.61 left 2.83 Quick DASH-Disab of Arm,Shoulder Hand Quick DASH Score: 58.3325 Goals Goal:Daily scar massage when approriate: Yes Goal:ROM equal to unaffected hand: Yes Goal:Permit Review Assistant/Pinch strength at least 75% of unaffected hand: Yes Goal:No pain with affected hand use: Yes Goal:Full use of affected hand in daily activities including work: Yes Goal:Improvement in sensation documented by Realitos-Dusty monofiliaments: Yes Other Goal: orthosis use: pt will demo understanding of using orthosis to decrease risk of contracture by end of 1st session. Rehabilitation General Assessment: pt arrives s/p 6 days from open yarbrough fasciotomy. Pt demo with newly healing structures and cannot fully use his right hand with daily tasks. Pt demo a need for skilled OT services 1-2x week for 6 -8 weeks to achieve maximal rehab outcome. Today therapist ed. pt on dx, wound healing and reviewed pts HEP of tendon glide, wrist ROM, opposition and finger add and abduction. Therapist ed. pt on importance of performing exercise 6-8x a day to decrease risk of scar adhesions. pt demo understanding and agree to POC. Rehabilitation Potential: Good Anticipated Interventions Anticipated Interventions: A/AAROM/PROM, Strengthening, Edema Control, Scar Care, Triggerpoint Release, Sensory Retraining, Wound Care, Modalities, Orthoses, Joint Protection/Energy Conservation, Ergonomic Education, Fine Motor Coord/Jake, Education re assistive Equipment, Education re Diagnosis and Home Program Visit Plan Frequency: 1-2x /Week Duration: 6 Weeks General Plan: ROM edema dressing change Soak use of Paddle orthosis TEXT: Thank you for the opportunity to evaluate your patient. For Medicare and Medicare HMO plans, please review the plan of care and approve it. It will need to be FAXED BACK to us at [phone] for Medicare purposes. Please let me know if there are questions or concerns regarding this plan of care. Physician Signature: Date : 06/08/24 1031 CC: Dr. Georgiana Mcfadden MD; Dr. Georgiana Littlejohn MD MK Signed For Medicare only, by signing this I certify the plan of care. Physicians Signature Date Normal [facility] Gastroenterology Visit Repor ton 04-22-2024 Gastroenterology Visit Report [facility] Gastroenterology [address] [place] [address] OFFICE VISIT Date of Service: 04/22/24 MR#: [id number] Acct: [id number] Name: SUZETTE PALOMINO Rep #: [id number] : 1950 Provider: Pantera Cervantes DO Age/Sex: 74/M Location: [facility] [place] Status: Signed Intake Vital Signs 03/27/23 10:01 Height 6 ft Intake Visit Reasons: 6 M FU Allergies No Known Allergies Allergy (Verified 06/29/23 13:02) Medications ???Medication ???Instructions ???Recorded ???Confirmed ???Type allopurinol 300 mg tablet 1 tab PO DAILY Check with primary 12/12/19 04/22/24 History doctor atorvastatin 10 mg tablet 1 tab PO DAILY cholesterol 12/12/19 04/22/24 History psqnopcu-vt-xgwwo 300 mcg-K 60 1 tab PO DAILY Check with primary 12/12/19 04/22/24 History mcg-lycop 600 mcg-lutein 300 mcg doctor tablet (Centrum Silver Men) sildenafil 100 mg tablet 100 ea PO PRN PRN ED 12/12/19 04/22/24 History finasteride 5 mg tablet 5 mg PO QHS 11/26/21 04/22/24 History tamsulosin 0.4 mg capsule 0.4 mg PO QHS 11/26/21 04/22/24 History losartan 50 mg tablet 50 mg PO DAILY #90 tabs 06/11/23 04/22/24 Rx colestipol 1 gram tablet 2 g (2 x 1 gram) PO BID #120 04/04/24 04/22/24 Rx TABLETS snixkp-byawcnjr-tfzgn se 1 cap PO TID 3 months #270 caps 04/22/24 04/22/24 Rx 40,000-126,000-168,00 0 unit capsule, delay rel (Zenpep) mirtazapine 7.5 mg tablet 7.5 mg PO QDAY 04/22/24 04/22/24 History Have you fallen in the past year?: No PFSH Medical History Abnormality of esophagus Acute appendicitis Acute respiratory failure with hypoxia (05/30/20) Alcohol use Cardiology follow-up encounter COVID-19 virus detected (05/30/20) Elevated d-dimer (05/30/20) Elevated PSA Enlarged prostate Essential (primary) hypertension Family history of colon cancer Former smoker Gas pain GERD (gastroesophageal reflux disease) Gout Hiatal hernia History of echocardiogram History of stress test Hyperlipidemia IBS (irritable bowel syndrome) Left foot drop (06/04/20) Leg cramps Loculated pleural effusion Neuropathy of left lower extremity Obesity Obstructive sleep apnea Pleural effusion (05/30/20) Pleural effusion on right Pneumonia due to COVID-19 virus (05/30/20) Thrombocytosis Varicose vein of leg Wears glasses Surgical History History of colonoscopy (2012) History of herniorrhaphy History of laparoscopic appendectomy (03/2020) History of Mohs micrographic surgery for skin cancer History of nasal septoplasty History of repair of hiatal hernia History of right inguinal hernia repair (2013) History of thoracotomy (09/24/20) Status post laparoscopic Sonal fundoplication Family History Sister Colon cancer Father Heart disease CAD (coronary artery disease) CABG Social History Smoking Status: Former smoker HPI HPI Details: SUZETTE PALOMINO, is a 74 M who presents to the office today for follow up. WSA established: ? EGD/colonoscopy 05.31.21 EGD medium hiatal hernia; short-segment Verdin???s; multiple pedunculated gastric fundic gland polyps; gastritis. No metaplasia, H.Pylori ? Colonoscopy hemorrhoids; enlarged prostate; 6mm sigmoid TA polyp ? Esophageal Manometry 06.13.21 No [place] classification. Incomplete bolus clearance with every swallow with weak and ineffective swallow pressures. ? Surgery 07.30.21 laparoscopic, converted to hand assist (control superior pole splenic bleeding), hiatal hernia repair with toupet procedure *BGI established 02.10.22 with bloating, flatulence and intermittent loose stools with lower abdominal discomfort. GasX somewhat helpful; dicyclomine also helpful; Metmucil ineffective. Follow with pulmonology for PORTILLO with belief that CPAP is introducing too much air. Start doxycycline. OV 04.28.22 bloating/SIBO symptoms resolved with doxycycline use; but has excess flatulence. Can use simethicone. ? Biochemical 10 RAST WNL OV 05.29.23 Nik has been continuing to have flatulence and intermittent urgent loose stools that he has been able to manageable to avoid severe life interference; lactaid, beano, gas-x have been ineffective and limiting fiber has been ineffective. Recently returned from travel to [place] and [facility]. OV 10.14.24 Pt reports that he continues to have urgent loose stools once a week and is unable to identify trigger. States that he tried Colestipol 1g for a month and is unsure if (more content not included)... Normal [facility] PSA,Total- Diagnosticon 10-2 PSA, DIAGNOSTIC 2.78 ng/mL Normal 0.0-4.[address] [facility] Comment on above: Result Comment: This test was performed using the TPSA assay method for the Panzura system. Values obtained with different assay methods cannot be used interchangably. When changing PSA assays in the course of monitoring a patient, additional sequential testing should be carried out to confirm baseline values. Performed By: #### L 501.9940 #### [facility] [address] [place], [address] Venous Duplex US - Harley [facility] 01-25-2024 Venous Duplex US - Harley Extrem [facility] [address] [place] [address] Venous Duplex US - Harley Extrem 01/25/24 1453 MR#: [id number] Acct: [id number] Name: SUZETTE PALOMINO Rep #: [id number] : 1950 74 From: Sawyer Montenegro MD Attending Dr: Dr. Georgiana Mcfadden MD Status: R EG CLI Ordering Dr: Georgiana Mcfadden MD Date: 01/25/24 Location: CVS Sex: M C Admitted: Reason For Study: BLE Edema / Venous Incompetence RIGHT LEFT CFV is compressible, spontaneous, phasic, CFV is compressible, spontaneous, phasic, competent and demonstrates normal competent, and demonstrates normal augmentation. augmentation. FV is compressible, spontaneous, phasic, FV is compressible, spontaneous, phasic, competent and demonstrates normal competent and demonstrates normal augmentation. augmentation. POP V is compressible, spontaneous, phasic, POP V is compressible, spontaneous, phasic, competent and demonstrates normal competent and demonstrates normal augmentation. augmentation. T/P Trunk is compressible. T/P Trunk is compressible. PTV is compressible. PTV is compressible. RT PerV is compressible. LT PerV is compressible. SFJ is competent and measures 0.58 cm. SFJ is competent and measures 0.68 cm. GSV proximal thigh measures 0.35 x 0.40 cm. GSV proximal thigh measures 0.35 x 0.36 cm. GSV at knee measures 0.31 x 0.28 cm. GSV at knee measures 0.23 x 0.25 cm. GSV above knee is competent. GSV above knee is INCOMPETENT for greater GSV below knee is INCOMPETENT for greater than 0.5 seconds. than 0.5 seconds. GSV below knee is competent. SSV proximal calf is competent and measures SSV proximal calf is competent and measures 0.16 x 0.20 cm. 0.28 x 0.28 cm. Perforating vessel Mid Calf is INCOMPETENT for greater than 0.5 seconds and measures approximately 0.29cm. Procedure Exam performed in department. This is a venous duplex using B-mode, color flow and spectral Doppler. The exam was diagnostic. Patient was scanned in reverse Trendelenburg position during reflux assessment. VL/Venous Duplex US - Harley Extrem Interpretation Summary Deep veins of the bilateral lower extremities are patent and compressible segmentally. There is no evidence of bilateral lower extremity deep vein thrombosis. The bilateral great saphenous veins appear patent and compressible segmentally. Positive for relux in the right great saphenous vein below the knee, and mid calf perforating vein. Positive for reflux in the left great saphenous vein above the knee. Ordering Physician: Georgiana Mcfadden Referring Physician: Georgiana Mcfadden Performed By: Abdi Calderon, JEFRY 01/25/241831 Date Sawyer Montenegro MD CC: Dr. Georgiana Mcfadden MD Date Dictated: 01/25/24 1453 Date Transcribed: 01/25/241831 Racetrack Steward: Signed Normal [facility] Comprehensive Metabolic Prof ilon 01-07-2024 Albumin [Mass/Vol] 3.9 g/dL Normal 3.2-5.0 [facility] Comment on above: Order Comment: Order Date: 01/07/24 Order Info: [id number] - CMP Order Info: [id number] - LIPID Order Info: [id number] - URIC Performed By: #### L 501.1400, L500.4100, L500.4050 #### [facility] [address] [place], [address] Albumin/Globulin [Mass ratio] 1.2 {ratio} Normal 0.9-2.[address] [facility] Comment on above: Order Comment: Order Date: 01/07/24 Order Info: [id number] - CMP Order Info: [id number] - LIPID Order Info: [id number] - URIC Performed By: #### L 501.1400, L500.4100, L500.4050 #### [facility] [address] [place], [address] ALK P 82 U/L Normal 45-[address] [facility] Comment on above: Order Comment: Order Date: 01/07/24 Order Info: [id number]- - CMP Order Info: - LIPID Order Info: [id number] - URIC Performed By: #### L 501.1400, L500.4100, L500.4050 #### [facility] [address] [place], [address] ALT [Catalytic activity/Vol] 20 U/L Normal 16-[address] [facility] Comment on above: Order Comment: Order Date: 01/07/24 Order Info: [id number] - CMP Order Info: - LIPID Order Info: [id number] - URIC Performed By: #### L 501.1400, L500.4100, L500.4050 #### [facility] [address] [place], [address] AST [Catalytic activity/Vol] 15 U/L Normal 15-[address] [facility] Comment on above: Order Comment: Order Date: 01/07/24 Order Info: [id number] - CMP Order Info: - LIPID Order Info: [id number] - URIC Performed By: #### L 501.1400, L500.4100, L500.4050 #### [facility] [address] [place], [address] Bilirubin [Mass/Vol] 1.00 mg/dL Normal 0.20-1.00 [facility] Comment on above: Order Comment: Order Date: 01/07/24 Order Info: [id number] - CMP Order Info: - LIPID Order Info: [id number] - URIC Result Comment: For patients on eltrombopag therapy, use of Dimension [place] TBIL is not recommended. Performed By: #### L 501.1400, L500.4100, L500.4050 #### [facility] [address] [place], [address] BUN/CRE 18.3 RATIO Normal 10-[address] [facility] Comment on above: Order Comment: Order Date: 01/07/24 Order Info: [id number]- - CMP Order Info: - LIPID Order Info: [id number] - URIC Performed By: #### L 501.1400, L500.4100, L500.4050 #### [facility] [address] [place], [address] CA,Total 9.1 mg/dL Normal 8.5-10.[address] [facility] Comment on above: Order Comment: Order Date: 01/07/24 Order Info: [id number] - CMP Order Info: - LIPID Order Info: [id number] - URIC Performed By: #### L 501.1400, L500.4100, L500.4050 #### [facility] [address] [place], [address] Chloride [Moles/Vol] 107 mmol/L Normal 98-107 [facility] Comment on above: Order Comment: Order Date: 01/07/24 Order Info: [id number] - CMP Order Info: - LIPID Order Info: [id number] - URIC Performed By: #### L 501.1400, L500.4100, L500.4050 #### [facility] [address] [place], [address] CO2 [Moles/Vol] 26.0 mmol/L Normal 21.0-32.[address] [facility] Comment on above: Order Comment: Order Date: 01/07/24 Order Info: [id number] - CMP Order Info: [id number] - LIPID Order Info: [id number] - URIC Performed By: #### L 501.1400, L500.4100, L500.4050 #### [facility] [address] [place], [address] Creatinine [Mass/Vol] 1.26 mg/dL Normal 0.70-1.30 [facility] Comment on above: Order Comment: Order Date: 01/07/24 Order Info: [id number] - CMP Order Info: [id number] - LIPID Order Info: [id number] - URIC Result Comment: The validity of the calculated GFR GFRAA in patients over 70 years has not been determined. Clinical correlation is essential. Performed By: #### L 501.1400, L500.4100, L500.4050 #### [facility] [address] [place], [address] EST GFR - AA 72 mL/min Normal >[address] [facility] Comment on above: Order Comment: Order Date: 01/07/24 Order Info: [id number] - CMP Order Info: - LIPID Order Info: [id number] - URIC Result Comment: Afri can Lao GFR Calc Performed By: #### L 501.1400, L500.4100, L500.4050 #### [facility] [address] [place], [address] GAP 5 Normal 5-[address] [facility] Comment on above: Order Comment: Order Date: 01/07/24 Order Info: [id number] - CMP Order Info: [id number] - LIPID Order Info: [id number] - URIC Performed By: #### L 501.1400, L500.4100, L500.4050 #### [facility] [address] [place], [address] GFR/1.73 sq M.predicted among non-blacks MDRD (S/P/Bld) [Vol rate/Area] 60 mL/min/{1.73_m2} Normal >[address] [facility] Comment on above: Order Comment: Order Date: 01/07/24 Order Info: [id number] - CMP Order Info: - LIPID Order Info: [id number] - URIC Result Comment: Non- GFR Calc Performed By: #### L 501.1400, L500.4100, L500.4050 #### [facility] [address] [place], [address] Globulin (S) [Mass/Vol] 3.2 g/dL Normal 2.2-4.2 [facility] Comment on above: Order Comment: Order Date: 01/07/24 Order Info: [id number] - CMP Order Info: - LIPID Order Info: [id number] - URIC Performed By: #### L 501.1400, L500.4100, L500.4050 #### [facility] [address] [place], [address] Glucose [Mass/Vol] 84 mg/dL Normal 74-106 [facility] Comment on above: Order Comment: Order Date: 01/07/24 Order Info: [id number] - CMP Order Info: - LIPID Order Info: [id number] - URIC Performed By: #### L 501.1400, L500.4100, L500.4050 #### [facility] [address] [place], [address] Potassium [Moles/Vol] 4.0 mmol/L Normal 3.5-5.1 [facility] Comment on above: Order Comment: Order Date: 01/07/24 Order Info: [id number] - CMP Order Info: - LIPID Order Info: [id number] - URIC Performed By: #### L 501.1400, L500.4100, L500.4050 #### [facility] [address] [place], [address] Sodium [Moles/Vol] 138 mmol/L Normal 136-145 [facility] Comment on above: Order Comment: Order Date: 01/07/24 Order Info: [id number] - CMP Order Info: - LIPID Order Info: [id number] - URIC Performed By: #### L 501.1400, L500.4100, L500.4050 #### [facility] [address] [place], [address] T PROT 7.1 g/dL Normal 6.4-8.[address] [facility] Comment on above: Order Comment: Order Date: 01/07/24 Order Info: [id number] - CMP Order Info: [id number] - LIPID Order Info: [id number] - URIC Performed By: #### L 501.1400, L500.4100, L500.4050 #### [facility] [address] [place], [address] Urea nitrogen [Mass/Vol] 23 mg/dL High 7-[address] [facility] Comment on above: Order Comment: Order Date: 01/07/24 Order Info: 785-05 - CMP Order Info: [id number] - LIPID Order Info: [id number] - URIC Performed By: #### L 501.1400, L500.4100, L500.4050 #### [facility] [address] [place], [address] Lipid Profileon 01-07-2024 Cholesterol [Mass/Vol] 135 mg/dL Normal 200 [facility] Comment on above: Order Comment: Order Date: 01/07/24 Order Info: 86 - CMP Order Info: [id number] - LIPID Order Info: [id number] - URIC Result Comment: <200 mg/dL Desirable 200-240 mg/dL Borderline >240 mg/dL High Risk Performed By: #### L 501.1400, L500.4100, L500.4050 #### [facility] [address] [place], [address] Cholesterol in HDL [Mass/Vol] 56 mg/dL Normal [facility] Comment on above: Order Comment: Order Date: 01/07/24 Order Info: [id number] - CMP Order Info: - LIPID Order Info: [id number] - URIC Result Comment: The drugs N-Acetylcysteine and Metamizole may falsely depress this assay. Reference Range HDL <40 mg/dL Low HDL Cholesterol HDL >or= 60 mg/dL High HDL Cholesterol Performed By: #### L 501.1400, L500.4100, L500.4050 #### [facility] [address] [place], [address] Cholesterol in LDL [Mass/Vol] 55 mg/dL Normal 0-[address] [facility] Comment on above: Order Comment: Order Date: 01/07/24 Order Info: [id number] - CMP Order Info: - LIPID Order Info: [id number] - URIC Performed By: #### L 501.1400, L500.4100, L500.4050 #### [facility] [address] [place], [address] Cholesterol in VLDL [Mass/Vol] 24 mg/dL Normal 5-[address] [facility] Comment on above: Order Comment: Order Date: 01/07/24 Order Info: [id number] - CMP Order Info: - LIPID Order Info: [id number] - URIC Performed By: #### L 501.1400, L500.4100, L500.4050 #### [facility] [address] [place], [address] Triglyceride [Mass/Vol] 118 mg/dL Normal [facility] Comment on above: Order Comment: Order Date: 01/07/24 Order Info: 785-05 - CMP Order Info: - LIPID Order Info: [id number] - URIC Result Comment: The drugs N-Acetylcysteine and Metamizole may falsely depress this assay. Serum Triglycerides Reference Interval Normal <150 mg/dL Borderline high 150 - 199 mg/dL High 200 - 499 mg/dL Very High > or = 500 mg/dL Performed By: #### L 501.1400, L500.4100, L500.4050 #### [facility] [address] [place], [place], [address] Uric Acidon 01-07-2024 URIC 4.1 mg/dL Normal 3.5-7.[address] [facility] Comment on above: Order Comment: Order Date: 01/07/24 Order Info: [id number] - CMP Order Info: [id number] - LIPID Order Info: [id number] - URIC Result Comment: The drugs N-Acetylcysteine and Metamizole may falsely depress this assay. Performed By: #### L 501.1400, L500.4100, L500.4050 #### [facility] [address] [place], [address] Absolute lymphocyte countOrd ered By: Georgiana Mcfadden on 06-26-2023 Lymphocytes Auto (Unsp spec) [#/Vol] 1.55 10*3/uL 0.83-4.[address] [facility] Automated lymphocyte count a s percentage of total leukocytesOrdered By: Georgiana Mcfadden on 06-26-2023 Lymphocytes/100 WBC Auto (Unsp spec) 24.4 % 19-[address] [facility] Basophil percentageOrdered B y: Georgiana Mcfadden on 06-26-2023 Basophils/100 WBC (Bld) 1.3 % 0-1 [facility] Bilirubin [Mass/Vol] 0.70 mg/dL 0.20-1.00 [facility] Comment on above: For patients on eltr ombopag therapy, use of Dimension [place] TBIL is not recommended. Chloride [Moles/Vol] 108 mmol/L 98-107 [facility] Cholesterol [Mass/Vol] 151 mg/dL <200 [facility] Comment on above: <200 mg/dL Desirable 200-240 mg/dL Borderline >240 mg/dL High Risk Eosinophils/100 WBC (Bld) 2.5 % 0-[address] [facility] Glucose [Mass/Vol] 89 mg/dL 74-106 [facility] Hemoglobin (Bld) [Mass/Vol] 15.0 g/dL 13.0-16.[address] [facility] Monocytes/100 WBC (Bld) 7.7 % 0-10 [facility] Neutrophils (Bld) [#/Vol] 4.0 10*3/uL 2.0-7.[address] [facility] Neutrophils/100 WBC (Bld) 63.6 % 47-[address] [facility] Potassium [Moles/Vol] 4.0 mmol/L 3.5-5.1 [facility] Protein [Mass/Vol] 7.3 g/dL 6.4-8.2 [facility] Sodium [Moles/Vol] 141 mmol/L 136-145 [facility] Triglyceride [Mass/Vol] 154 mg/dL <199 [facility] Comment on above: The drugs N-Acetylcy steine and Metamizole may falsely depress this assay.Serum Triglycerides Reference Interval Normal <150 mg/dL Borderline high 150 - 199 mg/dL High 200 - 499 mg/dL Very High > or = 500 mg/dL WBC (Bld) [#/Vol] 6.4 10*3/uL 4.4-11.0 [facility] Determination of erythrocyte mean corpuscular volume (MCV)Ordered By: Goergiana Mcfadden on 06-26-2023 MCV (RBC) [Entitic vol] 90.2 fL 80-94 [facility] Erythrocyte distribution wid th ratioOrdered By: Georgiana Mcfadden on 06-26-2023 Erythrocyte distribution width (RBC) [Ratio] 14.4 % 11.6-14.[address] [facility] Erythrocyte distribution wid th standard deviationOrdered By: Georgiana Mcfadden on 06-26-2023 Erythrocyte distribution width (RBC) [Entitic vol] 46.4 fL 35.1-43.[address] [facility] Hematocrit Auto (Bld) [Volum e fraction]Ordered By: Georgiana Mcfadden on 06-26-2023 Hematocrit (Bld) [Volume fraction] 45.1 % 40-[address] [facility] Immature granulocytes/100 WB C Auto (Bld)Ordered By: Georgiana Mcfadden on 06-26-2023 Immature granulocytes/100 WBC (Bld) 0.500 % 0.0-0.[address] [facility] Comment on above: IG% - Immature Granu locytes (promyelocytes, myelocytes and metamyelocytes) > 1% indicates that a LEFT SHIFT is Present. Laboratory - Chemistry and C hemistry - challengeOrdered By: Georgiana Mcfadden on 06-26-2023 Albumin/Globulin [Mass ratio] 1.1 {ratio} 0.9-2.[address] [facility] ALP [Catalytic activity/Vol] 73 U/L 45-[address] [facility] ALT [Catalytic activity/Vol] 23 U/L 16-[address] [facility] Cholesterol in HDL [Mass/Vol] 52 mg/dL >[address] [facility] Comment on above: The drugs N-Acetylcy steine and Metamizole may falsely depress this assay. Reference Range HDL <40 mg/dL Low HDL Cholesterol HDL >or= 60 mg/dL High HDL Cholesterol Cholesterol in LDL [Mass/Vol] 68 mg/dL 0-[address] [facility] CO2 [Moles/Vol] 26.0 mmol/L 21.0-32.[address] [facility] Globulin (S) [Mass/Vol] 3.4 g/dL 2.2-4.2 [facility] Urea nitrogen/Creatinine [Mass ratio] 20.9 mg/mg 10-[address] [facility] Laboratory - Hematology and Cell countsOrdered By: Georgiana Mcfadden on 06-26-2023 MCH (RBC) [Entitic mass] 30.0 pg 27.0-32.[address] [facility] MCHC (RBC) [Mass/Vol] 33.3 g/dL 32-36 [facility] Nucleated RBC/100 WBC (Bld) [Ratio] 0 % 0-[address] [facility] Platelet mean volume (Bld) [Entitic vol] 8.7 fL 6.2-12.[address] [facility] Platelets (Bld) [#/Vol] 241 10*3/uL 150-[address] [facility] No Panel InformationOrdered By: Georgiana Mcfadden on 06-26-2023 Estimated GFR (MDRD) Amer 84 mL/min >[address] [facility] Comment on above: GFR Calc Estimated GFR (MDRD) Non-Af Amer 70 mL/min >[address] [facility] Comment on above: Non- GFR Calc VLDL Cholesterol 31 mg/dL 5-[address] [facility] RBC Auto (Bld) [#/Vol]Ordere d By: Georgiana Mcfadden on 06-26-2023 RBC (Bld) [#/Vol] 5.00 10*6/uL 4.6-6.2 [facility] Serum or plasma calcium flower urement (mass/volume)Ordered By: Georgiana Mcfadden on 06-26-2023 Calcium [Mass/Vol] 9.3 mg/dL 8.5-10.1 [facility] Serum or plasma creatinine m easurement (mass/volume)Ordered By: Georgiana Mcfadden on 06-26-2023 Creatinine [Mass/Vol] 1.10 mg/dL 0.70-1.30 [facility] Comment on above: The validity of the calculated GFR & GFRAA in patients over 70 years has not been determined. Clinical correlation is essential. Serum or plasma thyroid stim ulating hormone (TSH) measurement (units/volume)Ordered By: Georgiana Mcfadden on 06-26-2023 TSH Qn 2.69 uIU/mL 0.358-3.[address] [facility] Serum or plasma urea nitroge n measurement (mass/volume)Ordered By: Georgiana Mcfadden on 06-26-2023 Urea nitrogen [Mass/Vol] 23 mg/dL 7-[address] [facility] Serum or plasma uric acid me asurement (mass/volume)Ordered By: Georgiana Mcfadden on 06-26-2023 Urate [Mass/Vol] 3.8 mg/dL 3.5-7.[address] [facility] Comment on above: The drugs N-Acetylcy steine and Metamizole may falsely depress this assay. Thin prep Papanicolaou smear with manual screeningOrdered By: Georgiana Mcfadden on 06-26-2023 Thin prep Papanicolaou smear with manual screening 3.9 g/dL 3.2-5.[address] [facility] Thin prep Papanicolaou smear with manual screening 15 U/L 15-[address] [facility] Thin prep Papanicolaou smear with manual screening 7 5-[address] [facility] Clostridioides difficile nuc leic acid assay by PCROrdered By: Pantera Cervantes on 06-03-2023 C. difficile DNA PADMINI+probe Ql (Unsp spec) [facility] Laboratory - Microbiology an d Antimicrobial susceptibilityOrdered By: Pantera Cervantes on 06-03-2023 G. lamblia Ag IA.rapid Ql (Stl) [facility] G. lamblia Ag IA.rapid Ql (Stl) [facility] No Panel InformationOrdered By: Pantera Cervantes on 06-03-2023 Stool Calprotectin 15 ug/g 0-120 [facility] Comment on above: Concentration Interp retation Follow-Up< 5 - 50 ug/g Normal None>50 -120 ug/g Borderline Re-evaluate in 4-6 weeks >120 ug/g Abnormal Repeat as clinically indicatedPerformed at: [place] [facility] [address] [id number] Director: Laury Frias MD, Phone: [phone] Ova and parasitesOrdered By: Pantera Cervantes on 06-03-2023 Ova and parasites identified LM Nom (Unsp spec) [facility] Ova and parasites identified LM Nom (Unsp spec) [facility] Stool enteric pathogen panel by probe and target amplification methodOrdered By: Pantera Cervantes on 06-03-2023 Gastrointestinal pathogens panel PADMINI+probe (Stl) [facility] Stool lactoferrin detection by immunoassayOrdered By: Pantera Cervantes on 06-03-2023 Lactoferrin IA Ql (Stl) [facility] Stool pancreatic elastase me asurement (mass/mass)Ordered By: Pantera Cervantes on 06-03-2023 Elastase.pancreatic (Stl) [Mass/Mass] 242 >[address] [facility] Comment on above: Result Units: ug [place] st./g Severe Pancreatic Insufficiency: <100 Moderate Pancreatic Insufficiency: 100 - 200 Normal: >200Performed at: [place] [facility] [address] [id number] Director: Laury Frias MD, Phone: [phone] Basophil percentageOrdered B y: Pantera Cervantes on 05-29-2023 Basophil percentage 0.2 AI 0.0-0.9 [facility] Basophil percentage < 0.2 AI 0.0-0.9 [facility] LDH [Catalytic activity/Vol] 219 U/L 87-[address] [facility] Erythrocyte sedimentation ra teOrdered By: Pantera Cervantes on 05-29-2023 ESR (Bld) [Velocity] 6 mm/h 0-20 [facility] Immunoglobulin M measurement Ordered By: Pantera Cervantes on 05-29-2023 IgM (U) [Mass/Vol] 66 mg/dL 15-143 [facility] Laboratory - Chemistry and C hemistry - challengeOrdered By: Pantera Cervantes on 05-29-2023 Cobalamin (Vitamin B12) [Mass/Vol] 488 pg/mL 211-[address] [facility] Free T4 [Mass/Vol] 0.99 ng/dL 0.76-1.46 [facility] Lipase [Catalytic activity/Vol] 34 U/L 13-[address] [facility] Comment on above: Please note:LIPASE r evised reference range effective 22. New Lipase methodology. Expected to produce lower values than the previous assay method. NEW Reference Range: 13 - 75 U/L No Panel InformationOrdered By: Pantera Cervantes on 05-29-2023 Centromere B Antibody <0.2 AI 0.0-0.9 [facility] Endomysial IgA Antibody Negative Negative [facility] Comment on above: Serum is slightly li pemic. Free Triiodothyronine (T3) pg/dL 2.4 pg/mL 2.18-3.[address] [facility] Immunoglobulin E 15 IU/mL 6-[address] [facility] Comment on above: Performed at: [facility] [employer] [id number] Director: Nagi Mark PhD, Phone: [phone] at: [facility] [employer] [id number] Director: Laury Frias MD, Phone: [phone] Immunoglobulin G4 23 mg/dL 2-[address] [facility] NEUROSCIENCE SPECIALIST Antibody 0.8 AI 0.0-0.[address] [facility] Thyroid Stimulating Hormone (TSH) 2.64 uIU/mL 0.358-3.[address] [facility] Serum DNA double strand anti body assay (units/volume)Ordered By: Pantera Cervantes on 05-29-2023 DNA double strand Ab Qn (S) [IU]/mL 0-[address] [facility] Comment on above: Negative <5 Equivoca l 5 - 9 Positive >9 Serum IgG subclass 1 measure ment (mass/volume)Ordered By: Pantera Cervantes on 05-29-2023 IgG subclass 1 (S) [Mass/Vol] 588 mg/dL 248-[address] [facility] Serum IgG subclass 2 measure ment (mass/volume)Ordered By: Pantera Cervantes on 05-29-2023 IgG subclass 2 (S) [Mass/Vol] 316 mg/dL 130-[address] [facility] Serum IgG subclass 3 measure ment (mass/volume)Ordered By: Pantera Cervantes on 05-29-2023 IgG subclass 3 (S) [Mass/Vol] 65 mg/dL 15-[address] [facility] Serum Laura-1 antibody assay (u nits/volume)Ordered By: Pantera Cervantes on 05-29-2023 Laura-1 extractable nuclear Ab Qn (S) <0.2 AI 0.0-0.[address] [facility] Serum Scl-70 antibody assay (units/volume)Ordered By: Pantera Cervantes on 05-29-2023 SCL-70 extractable nuclear Ab Qn (S) <0.2 AI 0.0-0.[address] [facility] Serum Friend antibody detecti onOrdered By: Pantera Cervantes on 05-29-2023 Friend extractable nuclear Ab Ql (S) <0.2 AI 0.0-0.[address] [facility] Serum or plasma C reactive p rotein measurement (mass/volume)Ordered By: Pantera Cervantes on 05-29-2023 CRP [Mass/Vol] mg/L 0.0-3.[address] [facility] Comment on above: C-Reactive Protein ( CRP) provides useful information for thediagnosis, therapy and monitoring of inflammatory processesand associated diseases. For the evaluation of Relative Riskfor Cardiovascular Disease, a High Sensitivity CRP (HSCRP)should be ordered. Serum or plasma IgA measurem ent (mass/volume)Ordered By: Pantera Cervantes on 05-29-2023 IgA [Mass/Vol] 215 mg/dL 61-[address] [facility] Serum or plasma IgG measurem ent (mass/volume)Ordered By: Pantera Cervantes on 05-29-2023 IgG [Mass/Vol] Not Reportable [facility] IgG [Mass/Vol] 1076 mg/dL [phone] [facility] Serum tissue transglutaminas e IgA antibody assay (units/volume)Ordered By: Pantera Cervantes on 05-29-2023 tTG IgA Qn (S) <2 U/mL 0-[address] [facility] Comment on above: Negative 0 - 3 Weak Positive 4 - 10 Positive >10 Tissue Transglutaminase (tTG) has been identified as the endomysial antigen. Studies have demonstr- ated that endomysial IgA antibodies have over 99% specificity for gluten sensitive enteropathy. Whole blood hemoglobin A1c/t otal hemoglobin ratio (mass fraction)Ordered By: Pantera Cervantes on 05-29-2023 HbA1c (Bld) [Mass fraction] 5.4 % 3.8-5.[address] [facility] Comment on above: Normal < 5.7 % Predi abetic 5.7 - 6.4 % Diabetic >or= 6.5 % Please note range changes. No Panel InformationOrdered By: Georgiana Mcfadden on 03-24-2023 Prostate Specific Antigen Screen 2.66 ng/mL 0.00-4.[address] [facility] Comment on above: This test was perfor med using the TPSA assay method for [employer] chemistry system. Values obtained with differentassay methods cannot be used interchangably.When changing PSA assays in the course of monitoring apatient, additional sequential testing should be carriedout to confirm baseline values. Barnett's yeast IgE serumOrde red By: Forrest Partida on 02-19-2023 Barnett's yeast IgE Qn (S) <0.10 kU/L Class [address] [facility] Laboratory - Miscellaneous t estsOrdered By: Forrets Partida on 02-19-2023 Service comment (Unsp spec) [Interp] Comment . [facility] Comment on above: Levels of Specific I gE Class Description of Class ----- < 0.10 0 Negative 0.10 - 0.31 0/I Equivocal/Low 0.32 - 0.55 I Low 0.56 - 1.40 II Moderate 1.41 - 3.90 III High 3.91 - 19.00 IV Very High 19.01 - 100.00 V Very High >100.00 Very High No Panel InformationOrdered By: Forrest Partida on 02-19-2023 Miscellaneous Test See comment [facility] Comment on above: TEST RESULTS LIMITSF 036-IgE Coconut <0.10 kU/L Class 0 TESTING PERFORMED AT [facility]. ORIGINAL REPORT ON FILE IN LAB CONTAINS ADDITIONAL TEST SITE INFORMATION. Scallop Allergen <0.10 kU/L Class [address] [facility] Sesame Seed Allergen IgE Antibody <0.10 kU/L Class [address] [facility] Shrimp Allergen <0.10 kU/L Class [address] [facility] Serum Ustilago avenae IgE an tibody assay (units/volume)Ordered By: Forrest Partida on 02-19-2023 Oat smut IgE Qn (S) <0.10 kU/L Class 0 [facility] Serum banana IgE antibody as say (units/volume)Ordered By: Forrest Partida on 02-19-2023 Banana IgE Qn (S) <0.10 kU/L Class [address] [facility] Comment on above: Performed at: [address] [id number] Director: Laury Frias MD, Phone: [phone] Serum black walnut IgE antib fredrick assay (units/volume)Ordered By: Forrest Partida on 02-19-2023 Black [place] IgE Qn (S) <0.10 kU/L Class 0 [facility] Serum cashew nut IgE antibod y assay (units/volume)Ordered By: Forrest Partida on 02-19-2023 Cashew nut IgE Qn (S) <0.10 kU/L Class 0 [facility] Serum clam IgE antibody assa y (units/volume)Ordered By: Forrest Partida on 02-19-2023 Clam IgE Qn (S) <0.10 kU/L Class [address] [facility] Serum codfish IgE antibody a ssay (units/volume)Ordered By: Forrest Partida on 02-19-2023 Codfish IgE Qn (S) <0.10 kU/L Class 0 [facility] Serum corn IgE antibody assa y (units/volume)Ordered By: Forrest Partida on 02-19-2023 Warren IgE Qn (S) <0.10 kU/L Class [address] [facility] Serum cow milk IgE antibody assay (units/volume)Ordered By: Forrest Partida on 02-19-2023 Cow milk IgE Qn (S) <0.10 kU/L Class 0 [facility] Serum egg white IgE antibody assay (units/volume)Ordered By: Forrest Partida on 02-19-2023 Egg white IgE Qn (S) <0.10 kU/L Class 0 [facility] Serum garlic IgE antibody as say (units/volume)Ordered By: Forrest Partida on 02-19-2023 Garlic IgE Qn (S) <0.10 kU/L Class [address] [facility] Serum lobster IgE antibody a ssay (units/volume)Ordered By: Forrest Partida on 02-19-2023 Lobster IgE Qn (S) <0.10 kU/L Class 0 [facility] Serum onion IgE antibody ass ay (units/volume)Ordered By: Forrest Partida on 02-19-2023 Onion IgE Qn (S) <0.10 kU/L Class [address] [facility] Serum peanut IgE antibody as say (units/volume)Ordered By: Forrest Partida on 02-19-2023 Peanut IgE Qn (S) <0.10 kU/L Class [address] [facility] Serum soybean IgE antibody a ssay (units/volume)Ordered By: Forrest Partida on 02-19-2023 Soybean IgE Qn (S) <0.10 kU/L Class 0 [facility] Serum tomato IgE antibody as say (units/volume)Ordered By: Forrest Partida on 02-19-2023 Tomato IgE Qn (S) <0.10 kU/L Class [address] [facility] Serum wheat IgE antibody ass ay (units/volume)Ordered By: Forrest Partida on 02-19-2023 Wheat IgE Qn (S) <0.10 kU/L Class [address] [facility] Absolute lymphocyte countOrd ered By: Georgiana Mcdanieldamien on 12-11-2022 Lymphocytes Auto (Unsp spec) [#/Vol] 1.60 10*3/uL 0.83-4.[address] [facility] Basophil percentageOrdered B y: Georgiana Mcfadden on 12-11-2022 Basophil percentage 0 SEEN /hpf 0-5 [facility] Basophils/100 WBC (Bld) 1.4 % 0-1 [facility] Bilirubin [Mass/Vol] 0.90 mg/dL 0.20-1.00 [facility] Comment on above: For patients on eltr ombopag therapy, use of Dimension [place]o TBIL is not recommended. Chloride [Moles/Vol] 108 mmol/L 98-107 [facility] Cholesterol [Mass/Vol] 134 mg/dL <200 [facility] Comment on above: <200 mg/dL Desirable 200-240 mg/dL Borderline >240 mg/dL High Risk Eosinophils/100 WBC (Bld) 2.9 % 0-[address] [facility] Glucose [Mass/Vol] 97 mg/dL 74-106 [facility] Neutrophils (Bld) [#/Vol] 3.3 10*3/uL 2.0-7.[address] [facility] Neutrophils/100 WBC (Bld) 57.8 % 47-[address] [facility] Potassium [Moles/Vol] 4.2 mmol/L 3.5-5.1 [facility] Protein [Mass/Vol] 6.6 g/dL 6.4-8.2 [facility] Sodium [Moles/Vol] 140 mmol/L 136-145 [facility] Triglyceride [Mass/Vol] 105 mg/dL <199 [facility] Comment on above: The drugs N-Acetylcy steine and Metamizole may falsely depress this assay.Serum Triglycerides Reference Interval Normal <150 mg/dL Borderline high 150 - 199 mg/dL High 200 - 499 mg/dL Very High > or = 500 mg/dL WBC (Bld) [#/Vol] 5.8 10*3/uL 4.4-11.0 [facility] Bilirubin Test strip Ql (U)O rdered By: Georgiana Mcfadden on 12-11-2022 Bilirubin Ql (U) Negative Negative [facility] Blood erythrocytes count (nu mber/volume)Ordered By: Georgiana Mcfadden on 12-11-2022 RBC (Bld) [#/Vol] 4.82 10*6/uL 4.6-6.2 [facility] Blood hemoglobin measurement (mass/volume)Ordered By: Georgiana Mcfadden on 12-11-2022 Hemoglobin (Bld) [Mass/Vol] 14.8 g/dL 13.0-16.[address] [facility] Blood lymphocytes/100 leukoc ytesOrdered By: Georgiana Mcfadden on 12-11-2022 Lymphocytes/100 WBC (Bld) 27.7 % 19-[address] [facility] Blood monocytes/100 leukocyt esOrdered By: Georgiana Mcfadden on 12-11-2022 Monocytes/100 WBC (Bld) 9.5 % 0-10 [facility] Blood platelet mean volumeOr dered By: Georgiana Mcfadden on 12-11-2022 Platelet mean volume (Bld) [Entitic vol] 9.0 fL 6.2-12.[address] [facility] Determination of erythrocyte mean corpuscular volume (MCV)Ordered By: Georgiana Mcfadden on 12-11-2022 MCV (RBC) [Entitic vol] 92.1 fL 80-94 [facility] Hematocrit Auto (Bld) [Volum e fraction]Ordered By: Georgiana Mcfadden on 12-11-2022 Hematocrit (Bld) [Volume fraction] 44.4 % 40-[address] [facility] Ketones Test strip Ql (U)Ord ered By: Georgiana Mcfadden on 12-11-2022 Ketones Ql (U) Negative Negative [facility] Laboratory - Chemistry and C hemistry - challengeOrdered By: Georgiana Mcfadden on 12-11-2022 ALP [Catalytic activity/Vol] 68 U/L 45-[address] [facility] ALT [Catalytic activity/Vol] 22 U/L 16-[address] [facility] CO2 [Moles/Vol] 26.0 mmol/L 21.0-32.[address] [facility] Globulin (S) [Mass/Vol] 3.1 g/dL 2.2-4.2 [facility] Urea nitrogen/Creatinine [Mass ratio] 18.5 mg/mg 10-[address] [facility] Laboratory - Hematology and Cell countsOrdered By: Georgiana Mcfadden on 12-11-2022 Erythrocyte distribution width (RBC) [Entitic vol] 46.1 fL 35.1-43.[address] [facility] Erythrocyte distribution width (RBC) [Ratio] 13.7 % 11.6-14.[address] [facility] Immature granulocytes/100 WBC (Bld) 0.700 % 0.0-0.[address] [facility] Comment on above: IG% - Immature Granu locytes (promyelocytes, myelocytes and metamyelocytes) > 1% indicates that a LEFT SHIFT is Present. MCH (RBC) [Entitic mass] 30.7 pg 27.0-32.[address] [facility] Nucleated RBC/100 WBC (Bld) [Ratio] 0 % 0-[address] [facility] MCHC Auto (RBC) [Mass/Vol]Or dered By: Georgiana Mcfadden on 12-11-2022 MCHC (RBC) [Mass/Vol] 33.3 g/dL 32-36 [facility] Mucus LM Ql (Urine sed)Order ed By: Georgiana Mcfadden on 12-11-2022 Mucus Ql (Urine sed) 0 SEEN /hpf [facility] Nitrite Test strip Ql (U)Ord ered By: Georgiana Mcfadden on 12-11-2022 Nitrite Ql (U) Negative Negative [facility] No Panel InformationOrdered By: Georgiana Mcfadden on 12-11-2022 Estimated GFR (MDRD) Amer 77 mL/min >[address] [facility] Comment on above: GFR Calc Estimated GFR (MDRD) Non-Af Amer 64 mL/min >[address] [facility] Comment on above: Non- GFR Calc Thyroid Stimulating Hormone (TSH) 2.95 uIU/mL 0.358-3.[address] [facility] Platelets bldOrdered By: Bob Mcfadden on 12-11-2022 Platelets (Bld) [#/Vol] 212 10*3/uL 150-[address] [facility] Protein Test strip Ql (U)Ord ered By: Georgiana Mcfadden on 12-11-2022 Protein Ql (U) Negative Negative [facility] Serum or plasma albumin flower urement (mass/volume)Ordered By: Georgiana Mcfadden on 12-11-2022 Albumin [Mass/Vol] 3.5 g/dL 3.2-5.0 [facility] Serum or plasma albumin/glob ulin mass ratioOrdered By: Georgiana Mcfadden on 12-11-2022 Albumin/Globulin [Mass ratio] 1.1 {ratio} 0.9-2.[address] [facility] Serum or plasma calcium flower urement (mass/volume)Ordered By: Georgiana Mcfadden on 12-11-2022 Calcium [Mass/Vol] 8.7 mg/dL 8.5-10.1 [facility] Serum or plasma cholesterol in HDL measurement (mass/volume)Ordered By: Georgiana Mcfadden on 12-11-2022 Cholesterol in HDL [Mass/Vol] 52 mg/dL >[address] [facility] Comment on above: The drugs N-Acetylcy steine and Metamizole may falsely depress this assay. Reference Range HDL <40 mg/dL Low HDL Cholesterol HDL >or= 60 mg/dL High HDL Cholesterol Serum or plasma cholesterol in VLDL measurement (mass/volume)Ordered By: Georgiana Mcfadden on 12-11-2022 Cholesterol in VLDL [Mass/Vol] 21 mg/dL 5-[address] [facility] Serum or plasma creatinine m easurement (mass/volume)Ordered By: Georgiana Mcfadden on 12-11-2022 Creatinine [Mass/Vol] 1.19 mg/dL 0.70-1.30 [facility] Comment on above: The validity of the calculated GFR & GFRAA in patients over 70 years has not been determined. Clinical correlation is essential. Serum or plasma low density lipoprotein (LDL) cholesterol measurement (mass/volume)Ordered By: Georgiana Mcfadden on 12-11-2022 Cholesterol in LDL [Mass/Vol] 61 mg/dL 0-[address] [facility] Serum or plasma urea nitroge n measurement (mass/volume)Ordered By: Georgiana Mcfadden on 12-11-2022 Urea nitrogen [Mass/Vol] 22 mg/dL 7-[address] [facility] Serum or plasma uric acid me asurement (mass/volume)Ordered By: Georgiana Mcfadden on 12-11-2022 Urate [Mass/Vol] 4.7 mg/dL 3.5-7.[address] [facility] Comment on above: The drugs N-Acetylcy steine and Metamizole may falsely depress this assay. Squamous epithelial cells de tection in urine sediment by light microscopyOrdered By: Georgiana Mcfadden on 12-11-2022 Epithelial cells.squamous LM Ql (Urine sed) 0 SEEN /hpf 0-[address] [facility] Thin prep Papanicolaou smear with manual screeningOrdered By: Georgiana Mcfadden on 12-11-2022 Thin prep Papanicolaou smear with manual screening 20 U/L 15-[address] [facility] Thin prep Papanicolaou smear with manual screening 6 5-[address] [facility] Urine blood detectionOrdered By: Georgiana Mcfadden on 12-11-2022 RBC Ql (U) Negative Negative [facility] RBC Ql (U) 0 SEEN /hpf 0-[address] [facility] Urine clarityOrdered By: Bob Mcfadden on 12-11-2022 Clarity (U) Clear Clear [facility] Urine color determinationOrd ered By: Georgiana Mcfadden on 12-11-2022 Color (U) Yellow Yellow [facility] Urine glucose detectionOrder ed By: Georgiana Mcfadden on 12-11-2022 Glucose Ql (U) Normal mg/dl Normal [facility] Urine leukocyte esterase det ection by dipstickOrdered By: Georgiana Mcfadden on 12-11-2022 Leukocyte esterase Test strip Ql (U) Negative Negative [facility] Urine pHOrdered By: Georgiana quezada on 12-11-2022 pH (U) 5.0 [pH] 5.0 - 8.[address] [facility] Urine sediment bacteria coun t by microscopy (number/high power field)Ordered By: Georgiana Mcfadden on 12-11-2022 Bacteria LM.HPF (Urine sed) [#/Area] 0 /[HPF] None Seen [facility] Urine specific gravity measu rementOrdered By: Georgiana Mcfadden on 12-11-2022 Specific gravity (U) [Rel density] 1.025 1.002-1.[address] [facility] Urobilinogen Auto test strip Ql (U)Ordered By: Georgiana Mcfadden on 12-11-2022 Urobilinogen Ql (U) Normal mg/dl Normal [facility] Absolute lymphocyte counton 03-24-2022 Lymphocytes Auto (Unsp spec) [#/Vol] 1.84 10*3/uL 0.83-4.[address] [facility] Work Phone: [phone] Basophil percentageon 2021 Basophils/100 WBC (Bld) 1.5 % 0-1 [facility] Work Phone: [phone] Bilirubin [Mass/Vol] 1.00 mg/dL 0.20-1.00 [facility] Work Phone: [phone] Comment on above: For patients on eltr ombopag therapy, use of Dimension [place] TBIL is not recommended. Chloride [Moles/Vol] 107 mmol/L 98-107 [facility] Work Phone: [phone] Cholesterol [Mass/Vol] 158 mg/dL <200 [facility] Work Phone: Comment on above: <200 mg/dL Desirable 200-240 mg/dL Borderline >240 mg/dL High Risk Eosinophils/100 WBC (Bld) 2.2 % 0-[address] [facility] Work Phone: [phone] Glucose [Mass/Vol] 88 mg/dL 74-106 [facility] Work Phone: [phone] Neutrophils (Bld) [#/Vol] 2.9 10*3/uL 2.0-7.[address] [facility] Work Phone: [phone] Neutrophils/100 WBC (Bld) 53.4 % 47-[address] [facility] Work Phone: [phone] Potassium [Moles/Vol] 4.1 mmol/L 3.5-5.1 [facility] Work Phone: [phone] Protein [Mass/Vol] 7.1 g/dL 6.4-8.2 [facility] Work Phone: [phone] Sodium [Moles/Vol] 140 mmol/L 136-145 [facility] Work Phone: [phone] Triglyceride [Mass/Vol] 108 mg/dL <199 [facility] Work Phone: Comment on above: The drugs N-Acetylcy steine and Metamizole may falsely depress this assay.Serum Triglycerides Reference Interval Normal <150 mg/dL Borderline high 150 - 199 mg/dL High 200 - 499 mg/dL Very High > or = 500 mg/dL WBC (Bld) [#/Vol] 5.3 10*3/uL 4.4-11.0 [facility] Work Phone: Blood erythrocytes count (nu mber/volume)on 03-24-2022 RBC (Bld) [#/Vol] 5.03 10*6/uL 4.6-6.2 [facility]: Blood hemoglobin measurement (mass/volume)on 03-24-2022 Hemoglobin (Bld) [Mass/Vol] 15.2 g/dL 13.0-16.[address] [facility] Work Phone: Blood lymphocytes/100 leukoc yteson 03-24-2022 Lymphocytes/100 WBC (Bld) 34.5 % 19-[address] [facility] Work Phone: Blood monocytes/100 leukocyt eson 03-24-2022 Monocytes/100 WBC (Bld) 8.2 % 0-10 [facility] Work Phone: Blood platelet mean volumeon 03-24-2022 Platelet mean volume (Bld) [Entitic vol] 8.8 fL 6.2-12.[address] [facility] Work Phone: Determination of erythrocyte mean corpuscular volume (MCV)on 03-24-2022 MCV (RBC) [Entitic vol] 90.3 fL 80-94 [facility] Work Phone: Hematocrit Auto (Bld) [Volum e fraction]on 03-24-2022 Hematocrit (Bld) [Volume fraction] 45.4 % 40-[address] [facility] Work Phone: Laboratory - Chemistry and C hemistry - challengeon 03-24-2022 ALP [Catalytic activity/Vol] 70 U/L 45-[address] [facility] Work Phone: ALT [Catalytic activity/Vol] 26 U/L 16-[address] [facility] Work Phone: CO2 [Moles/Vol] 26.0 mmol/L 21.0-32.[address] [facility] Work Phone: Globulin (S) [Mass/Vol] 3.3 g/dL 2.2-4.2 [facility] Work Phone: Urea nitrogen/Creatinine [Mass ratio] 21.8 mg/mg 10-[address] [facility] Work Phone: Laboratory - Hematology and Cell countson 03-24-2022 Erythrocyte distribution width (RBC) [Entitic vol] 50.9 fL 35.1-43.[address] [facility] Work Phone: Erythrocyte distribution width (RBC) [Ratio] 15.4 % 11.6-14.[address] [facility] Work Phone: Immature granulocytes/100 WBC (Bld) 0.200 % 0.0-0.[address] [facility] Work Phone: Comment on above: IG% - Immature Granu locytes (promyelocytes, myelocytes and metamyelocytes) > 1% indicates that a LEFT SHIFT is Present. MCH (RBC) [Entitic mass] 30.2 pg 27.0-32.[address] [facility] Work Phone: Nucleated RBC/100 WBC (Bld) [Ratio] 0 % 0-[address] [facility] Work Phone: MCHC Auto (RBC) [Mass/Vol]on 03-24-2022 MCHC (RBC) [Mass/Vol] 33.5 g/dL 32-36 [facility] [facility] Work Phone: No Panel Informationon 03-24 Prostate Specific Antigen Total 2.36 ng/mL 0.0-4.[address] [facility] Work Phone: Comment on above: This test was perfor med using the TPSA assay method for [facility]. Values obtained with differentassay methods cannot be used interchangably.When changing PSA assays in the course of monitoring apatient, additional sequential testing should be carriedout to confirm baseline values. Estimated GFR (MDRD) Amer 77 mL/min >[address] [facility] Work Phone: Comment on above: GFR Calc Estimated GFR (MDRD) Non-Af Amer 64 mL/min >[address] [facility] Work Phone: Comment on above: Non- GFR Calc Platelets bldon 03-24-2022 Platelets (Bld) [#/Vol] 282 10*3/uL 150-[address] [facility] Work Phone: Serum or plasma albumin flower urement (mass/volume)on 03-24-2022 Albumin [Mass/Vol] 3.8 g/dL 3.2-5.0 [facility] Work Phone: Serum or plasma albumin/glob ulin mass ratioon 03-24-2022 Albumin/Globulin [Mass ratio] 1.2 {ratio} 0.9-2.[address] [facility] Work Phone: Serum or plasma calcium flower urement (mass/volume)on 03-24-2022 Calcium [Mass/Vol] 9.0 mg/dL 8.5-10.1 [facility] Work Phone: Serum or plasma cholesterol in HDL measurement (mass/volume)on 03-24-2022 Cholesterol in HDL [Mass/Vol] 62 mg/dL >[address] [facility] Work Phone: Comment on above: The drugs N-Acetylcy steine and Metamizole may falsely depress this assay. Reference Range HDL <40 mg/dL Low HDL Cholesterol HDL >or= 60 mg/dL High HDL Cholesterol Serum or plasma cholesterol in VLDL measurement (mass/volume)on 03-24-2022 Cholesterol in VLDL [Mass/Vol] 22 mg/dL 5-[address] [facility] Work Phone: Serum or plasma creatinine m easurement (mass/volume)on 03-24-2022 Creatinine [Mass/Vol] 1.19 mg/dL 0.70-1.30 [facility] Work Phone: Comment on above: The validity of the calculated GFR & GFRAA in patients over 70 years has not been determined. Clinical correlation is essential. Serum or plasma low density lipoprotein (LDL) cholesterol measurement (mass/volume)on 03-24-2022 Cholesterol in LDL [Mass/Vol] 74 mg/dL 0-[address] [facility] Work Phone: Serum or plasma urea nitroge n measurement (mass/volume)on 03-24-2022 Urea nitrogen [Mass/Vol] 26 mg/dL 7-[address] [facility] Work Phone: Thin prep Papanicolaou smear with manual screeningon 03-24-2022 Thin prep Papanicolaou smear with manual screening 15 U/L 15-[address] [facility] Work Phone: Thin prep Papanicolaou smear with manual screening 7 5-[address] [facility] Work Phone: Absolute lymphocyte counton 10-22-2021 Lymphocytes Auto (Unsp spec) [#/Vol] 1.68 10*3/uL 0.83-4.[address] [facility] Work Phone: Basophil percentageon 2021 Basophil percentage 0 SEEN /hpf [facility] Work Phone: Basophils/100 WBC (Bld) 1.3 % 0-1 [facility] Work Phone: Bilirubin [Mass/Vol] 0.90 mg/dL 0.20-1.00 [facility] Work Phone: Comment on above: For patients on eltr ombopag therapy, use of Dimension [place] TBIL is not recommended. Chloride [Moles/Vol] 107 mmol/L 98-107 [facility] Work Phone: Cholesterol [Mass/Vol] 141 mg/dL <200 [facility] Work Phone: Comment on above: <200 mg/dL Desirable 200-240 mg/dL Borderline >240 mg/dL High Risk Eosinophils/100 WBC (Bld) 2.3 % 0-[address] [facility] Work Phone: Glucose [Mass/Vol] 92 mg/dL 74-106 [facility] Work Phone: [phone] Neutrophils (Bld) [#/Vol] 3.1 10*3/uL 2.0-7.[address] [facility] Work Phone: [phone] Neutrophils/100 WBC (Bld) 56.5 % 47-[address] [facility] Work Phone: [phone] Potassium [Moles/Vol] 3.9 mmol/L 3.5-5.1 [facility] Work Phone: Protein [Mass/Vol] 6.7 g/dL 6.4-8.2 [facility] Work Phone: [phone] Sodium [Moles/Vol] 138 mmol/L 136-145 [facility] Work Phone: Triglyceride [Mass/Vol] 123 mg/dL [facility] Work Phone: Comment on above: The drugs N-Acetylcy steine and Metamizole may falsely depress this assay.Serum Triglycerides Reference Interval Normal <150 mg/dL Borderline high 150 - 199 mg/dL High 200 - 499 mg/dL Very High > or = 500 mg/dL WBC (Bld) [#/Vol] 5.6 10*3/uL 4.4-11.0 [facility] Work Phone: Bilirubin Test strip Ql (U)o n 10-22-2021 Bilirubin Ql (U) Negative Negative [facility] Work Phone: Blood erythrocytes count (nu mber/volume)on 10-22-2021 RBC (Bld) [#/Vol] 4.90 10*6/uL 4.6-6.2 [facility] Work Phone: Blood hemoglobin measurement (mass/volume)on 10-22-2021 Hemoglobin (Bld) [Mass/Vol] 13.7 g/dL 13.0-16.[address] [facility] Work Phone: Blood lymphocytes/100 leukoc yteson 10-22-2021 Lymphocytes/100 WBC (Bld) 30.3 % 19-[address] [facility] Work Phone: Blood monocytes/100 leukocyt eson 10-22-2021 Monocytes/100 WBC (Bld) 9.2 % 0-10 [facility] Work Phone: Blood platelet mean volumeon 10-22-2021 Platelet mean volume (Bld) [Entitic vol] 9.0 fL 6.2-12.[address] [facility] Work Phone: Determination of erythrocyte mean corpuscular volume (MCV)on 10-22-2021 MCV (RBC) [Entitic vol] 86.5 fL 80-94 [facility] Work Phone: Hematocrit Auto (Bld) [Volum e fraction]on 10-22-2021 Hematocrit (Bld) [Volume fraction] 42.4 % 40-[address] [facility] Work Phone: Ketones Test strip Ql (U)on 10-22-2021 Ketones Ql (U) Negative Negative [facility] Work Phone: Laboratory - Chemistry and C hemistry - challengeon 10-22-2021 ALP [Catalytic activity/Vol] 75 U/L 45-[address] [facility] Work Phone: ALT [Catalytic activity/Vol] 19 U/L 16-[address] [facility] Work Phone: CO2 [Moles/Vol] 24.0 mmol/L 21.0-32.[address] [facility] Work Phone: Globulin (S) [Mass/Vol] 3.2 g/dL 2.2-4.2 [facility] Work Phone: Urea nitrogen/Creatinine [Mass ratio] 14.4 mg/mg 10-[address] [facility] Work Phone: Laboratory - Hematology and Cell countson 10-22-2021 Erythrocyte distribution width (RBC) [Entitic vol] 45.7 fL 35.1-43.[address] [facility] Work Phone: Erythrocyte distribution width (RBC) [Ratio] 14.5 % 11.6-14.[address] [facility] Work Phone: Immature granulocytes/100 WBC (Bld) 0.400 % 0.0-0.[address] [facility] Work Phone: Comment on above: IG% - Immature Granu locytes (promyelocytes, myelocytes and metamyelocytes) > 1% indicates that a LEFT SHIFT is Present. MCH (RBC) [Entitic mass] 28.0 pg 27.0-32.[address] [facility] Work Phone: Nucleated RBC/100 WBC (Bld) [Ratio] 0 % 0-[address] [facility] Work Phone: MCHC Auto (RBC) [Mass/Vol]on 10-22-2021 MCHC (RBC) [Mass/Vol] 32.3 g/dL 32-36 [facility] Work Phone: Mucus LM Ql (Urine sed)on Mucus Ql (Urine sed) 0 SEEN /hpf [facility] Work Phone: Nitrite Test strip Ql (U)on 10-22-2021 Nitrite Ql (U) Negative Negative [facility] Work Phone: No Panel Informationon 10-22 Estimated GFR (MDRD) Amer 90 mL/min >[address] [facility] Work Phone: Comment on above: GFR Calc Estimated GFR (MDRD) Non-Af Amer 75 mL/min >[address] [facility] Work Phone: Comment on above: Non- GFR Calc Platelets bldon 10-22-2021 Platelets (Bld) [#/Vol] 263 10*3/uL 150-[address] [facility] Work Phone: Protein Test strip Ql (U)on 10-22-2021 Protein Ql (U) Negative Negative [facility] Work Phone: Serum or plasma albumin flower urement (mass/volume)on 10-22-2021 Albumin [Mass/Vol] 3.5 g/dL 3.2-5.0 [facility] Work Phone: Serum or plasma albumin/glob ulin mass ratioon 10-22-2021 Albumin/Globulin [Mass ratio] 1.1 {ratio} 0.9-2.[address] [facility] Work Phone: Serum or plasma calcium flower urement (mass/volume)on 10-22-2021 Calcium [Mass/Vol] 8.7 mg/dL 8.5-10.1 [facility] Work Phone: Serum or plasma cholesterol in HDL measurement (mass/volume)on 10-22-2021 Cholesterol in HDL [Mass/Vol] 49 mg/dL [facility] Work Phone: Comment on above: The drugs N-Acetylcy steine and Metamizole may falsely depress this assay. Reference Range HDL <40 mg/dL Low HDL Cholesterol HDL >or= 60 mg/dL High HDL Cholesterol Serum or plasma cholesterol in VLDL measurement (mass/volume)on 10-22-2021 Cholesterol in VLDL [Mass/Vol] 25 mg/dL 5-[address] [facility] Work Phone: Serum or plasma creatinine m easurement (mass/volume)on 10-22-2021 Creatinine [Mass/Vol] 1.04 mg/dL 0.70-1.30 [facility] Work Phone: Comment on above: The validity of the calculated GFR & GFRAA in patients over 70 years has not been determined. Clinical correlation is essential. Serum or plasma low density lipoprotein (LDL) cholesterol measurement (mass/volume)on 10-22-2021 Cholesterol in LDL [Mass/Vol] 67 mg/dL 0-[address] [facility] Work Phone: Serum or plasma urea nitroge n measurement (mass/volume)on 10-22-2021 Urea nitrogen [Mass/Vol] 15 mg/dL 7-[address] [facility] Work Phone: Serum or plasma uric acid me asurement (mass/volume)on 10-22-2021 Urate [Mass/Vol] 4.5 mg/dL 3.5-7.[address] [facility] Work Phone: Comment on above: The drugs N-Acetylcy steine and Metamizole may falsely depress this assay. Squamous epithelial cells de tection in urine sediment by light microscopyon 10-22-2021 Epithelial cells.squamous LM Ql (Urine sed) 0 SEEN /hpf [facility] Work Phone: Thin prep Papanicolaou smear with manual screeningon 10-22-2021 Thin prep Papanicolaou smear with manual screening 17 U/L 15-[address] [facility] Work Phone: Thin prep Papanicolaou smear with manual screening 7 5-[address] [facility] Work Phone: Urine blood detectionon RBC Ql (U) Negative Negative [facility] Work Phone: RBC Ql (U) 0 SEEN /hpf [facility] Work Phone: Urine clarityon 10-22-2021 Clarity (U) Clear Clear [facility] Work Phone: Urine color determinationon 10-22-2021 Color (U) Yellow Yellow [facility] Work Phone: Urine glucose detectionon Glucose Ql (U) Normal mg/dl Normal [facility] Work Phone: Urine leukocyte esterase det ection by dipstickon 10-22-2021 Leukocyte esterase Test strip Ql (U) 25 /ul Negative [facility] Work Phone: Urine pHon 10-22-2021 pH (U) 8.0 [pH] [facility] Work Phone: Urine sediment bacteria coun t by microscopy (number/high power field)on 10-22-2021 Bacteria LM.HPF (Urine sed) [#/Area] 0 /[HPF] None Seen [facility] Work Phone: Urine specific gravity measu rementon 10-22-2021 Specific gravity (U) [Rel density] 1.[address] [facility] Work Phone: Urobilinogen Auto test strip Ql (U)on 10-22-2021 Urobilinogen Ql (U) Normal mg/dl Normal [facility] Work Phone: No Panel Informationon 09-19 Prostate Specific Antigen Total 10.00 ng/mL 0.0-4.[address] [facility] Work Phone: Comment on above: This test was perfor med using the TPSA assay method for [employer] chemistry system. Values obtained with differentassay methods cannot be used interchangably.When changing PSA assays in the course of monitoring apatient, additional sequential testing should be carriedout to confirm baseline values. CR Chest PA/LATon 08-27-2021 CR Chest PA/LAT [facility]: [id number] ACCESSION EXAM DATE/TIME PROCEDURE ORDERING PROVIDER [id number] 08/27/2021 14:19 EDT CR Chest PA and LAT MELVA MCGOVERN, LISSETTE Quinonez CPT code 03524 Reason For Exam (CR Chest PA and [...] and Time: 08/27/2021 2:49 pm Signed by: MONROE, DO, BART Transcribed Date and Time: 08/27/2021 2:48 Normal [facility] Absolute lymphocyte counton 08-08-2021 Lymphocytes Auto (Unsp spec) [#/Vol] 1.74 10*3/uL 0.83-4.[address] [facility] Work Phone: [phone] Basophil percentageon 2021 Basophils/100 WBC (Bld) 1.0 % 0-1 [facility] Work Phone: Eosinophils/100 WBC (Bld) 2.8 % 0-[address] [facility] Work Phone: Neutrophils (Bld) [#/Vol] 5.7 10*3/uL 2.0-7.[address] [facility] Work Phone: Neutrophils/100 WBC (Bld) 64.2 % 47-[address] [facility] Work Phone: [phone] WBC (Bld) [#/Vol] 8.8 10*3/uL 4.4-11.0 [facility] Work Phone: [phone] Blood erythrocytes count (nu mber/volume)on 08-08-2021 RBC (Bld) [#/Vol] 4.32 10*6/uL [facility].6[facility]: [phone] Blood hemoglobin measurement (mass/volume)on 08-08-2021 Hemoglobin (Bld) [Mass/Vol] 13.2 g/dL 13.0-16.[address] [facility] Work Phone: Blood lymphocytes/100 leukoc yteson 08-08-2021 Lymphocytes/100 WBC (Bld) 19.8 % 19-[address] [facility] Work Phone: Blood monocytes/100 leukocyt eson 08-08-2021 Monocytes/100 WBC (Bld) 10.6 % 0-10 [facility] Work Phone: Blood platelet mean volumeon 08-08-2021 Platelet mean volume (Bld) [Entitic vol] 8.0 fL 6.2-12.[address] [facility] Work Phone: Determination of erythrocyte mean corpuscular volume (MCV)on 08-08-2021 MCV (RBC) [Entitic vol] 90.5 fL 80-94 [facility] Work Phone: Hematocrit Auto (Bld) [Volum e fraction]on 08-08-2021 Hematocrit (Bld) [Volume fraction] 39.1 % 40-[address] [facility] Work Phone: Laboratory - Hematology and Cell countson 08-08-2021 Erythrocyte distribution width (RBC) [Entitic vol] 43.5 fL 35.1-43.[address] [facility] Work Phone: Erythrocyte distribution width (RBC) [Ratio] 13.2 % 11.6-14.[address] [facility] Work Phone: Immature granulocytes/100 WBC (Bld) 1.600 % 0.0-0.[address] [facility] Work Phone: Comment on above: IG% - Immature Granu locytes (promyelocytes, myelocytes and metamyelocytes) > 1% indicates that a LEFT SHIFT is Present. MCH (RBC) [Entitic mass] 30.6 pg 27.0-32.[address] [facility] Work Phone: Nucleated RBC/100 WBC (Bld) [Ratio] 0 % 0-[address] [facility] Work Phone: MCHC Auto (RBC) [Mass/Vol]on 08-08-2021 MCHC (RBC) [Mass/Vol] 33.8 g/dL 32-36 [facility] Work Phone: Platelets bldon 08-08-2021 Platelets (Bld) [#/Vol] 584 10*3/uL 150-[address] [facility] Work Phone: Clinical Lists Update: Prelo ad Extendedon 08-07-2021 Tobacco smoking status Tobacco smoking status Invalid Interpretation Code [facility] Work Phone: Clinical Summary: Chase leo 08-07-2021 MC25 OP Hand Invalid Interpretation Code [facility] Work Phone: Clinical Summary: Scanned Ibrahima story Summaryon 08-07-2021 adl form etoh alcohol performance wine Invalid Interpretation Code [facility] Work Phone: Beta HCG ( test) Ql (U) Never Invalid Interpretation Code [facility] Work Phone: brother(s) of patient alive or I do not have any brothers. My brother(s)' health history is unknown. Invalid Interpretation Code [facility] Work Phone: cause of , father cardiac arrest Invalid Interpretation Code [facility] Work Phone: cause of , mother child Invalid Interpretation Code [facility] Work Phone: consumes three or more drinks of alcohol (beer, wine, liquor) daily or almost daily 1 drink per day Invalid Interpretation Code [facility] Work Phone: Data entered by patient exercise frequency 5 days per week Invalid Interpretation Code [facility] Work Phone: Data entered by patient exercise type walking, cycling, other Invalid Interpretation Code [facility] Work Phone: data entered by patient, alcohol (ethanol or ETOH) use Yes Invalid Interpretation Code [facility] Work Phone: Data entered by patient, allergy list I don't have any Drug Allergies Invalid Interpretation Code [facility] Work Phone: data entered by patient, drug (of abuse) use No Invalid Interpretation Code [facility] Work Phone: data entered by patient, Employer Name retired Invalid Interpretation Code [facility] Work Phone: data entered by patient, exercise history Yes Invalid Interpretation Code [facility] Work Phone: data entered by patient, father's medical history Gout Heart disease High blood pressure Kidney disease Invalid Interpretation Code [facility] Work Phone: Data entered by patient, history of past surgeries Abdominal Surgery Appendectomy Hernia repair Thoracic spine surgery other Invalid Interpretation Code [facility] Work Phone: data entered by patient, maternal family history unknown My mother's health history is unknown Invalid Interpretation Code [facility] Work Phone: Data entered by patient, medication list [id number]-kelly ly atorvastatin tpmtgmq-[id number]-daily hydrochlorothiazide and lyuaqqjylbu-03-4-traci y txdykkcgtq-11-3-daily flomax-.4-1-daily centrum toydjn-5-9-daily [id number] needed Invalid Interpretation Code [facility] Work Phone: data entered by patient, past medical history GERD Gout High blood pressure High cholesterol Irritable bowel syndrome Sleep apnea Invalid Interpretation Code [facility] Work Phone: data entered by patient, social history, current smoker former smoker Invalid Interpretation Code [facility] Work Phone: data entered by patient, social history, marital status Invalid Interpretation Code [facility] Work Phone: father of patient is alive or Invalid Interpretation Code [facility] Work Phone: Housing Type: apartment, house, jail, trailer, none house Invalid Interpretation Code [facility] Work Phone: housing unit size (asthma environmental history, housing) (from single family to don't know) 2 floors Invalid Interpretation Code [facility] Work Phone: medical history of patient's sister Cancer COPD Invalid Interpretation Code [facility] Work Phone: mother of patient is alive or Invalid Interpretation Code [facility] Work Phone: Number of dependent children No Invalid Interpretation Code [facility] Work Phone: Absolute lymphocyte counton 07-30-2021 Lymphocytes Auto (Unsp spec) [#/Vol] 1.08 10*3/uL 0.83-4.[address] [facility] Work Phone: [phone] Basophil percentageon 2021 Basophils/100 WBC (Bld) 0.3 % 0-1 [facility] Work Phone: [phone] Chloride [Moles/Vol] 107 mmol/L 98-107 [facility] Work Phone: [phone] Eosinophils/100 WBC (Bld) 0.1 % 0-[address] [facility] Work Phone: Glucose [Mass/Vol] 124 mg/dL 74-106 [facility] Work Phone: [phone] Comment on above: Fasting Glucose resu lt from 100 to 125 mg/dL suggests IMPAIRED HOMEOSTASIS per A.D.A. criteria. Neutrophils (Bld) [#/Vol] 6.0 10*3/uL 2.0-7.[address] [facility] Work Phone: [phone] Neutrophils/100 WBC (Bld) 78.1 % 47-[address] [facility] Work Phone: [phone] Potassium [Moles/Vol] 3.7 mmol/L 3.5-5.1 [facility] Work Phone: [phone] Sodium [Moles/Vol] 139 mmol/L 136-145 [facility] Work Phone: WBC (Bld) [#/Vol] 7.7 10*3/uL 4.4-11.0 [facility] Work Phone: Blood erythrocytes count (nu mber/volume)on 07-30-2021 RBC (Bld) [#/Vol] 4.03 10*6/uL 4.6-6.[facility]: Blood hemoglobin measurement (mass/volume)on 07-30-2021 Hemoglobin (Bld) [Mass/Vol] 12.4 g/dL 13.0-16.[address] [facility] Work Phone: Blood lymphocytes/100 leukoc yteson 07-30-2021 Lymphocytes/100 WBC (Bld) 14.1 % 19-[address] [facility] Work Phone: Blood monocytes/100 leukocyt eson 07-30-2021 Monocytes/100 WBC (Bld) 6.9 % 0-10 [facility] Work Phone: Blood platelet mean volumeon 07-30-2021 Platelet mean volume (Bld) [Entitic vol] 8.8 fL 6.2-12.[address] [facility] Work Phone: Determination of erythrocyte mean corpuscular volume (MCV)on 07-30-2021 MCV (RBC) [Entitic vol] 85.4 fL 80-94 [facility] Work Phone: Hematocrit Auto (Bld) [Volum e fraction]on 07-30-2021 Hematocrit (Bld) [Volume fraction] 34.4 % 40-[address] [facility] Work Phone: Laboratory - Chemistry and C hemistry - challengeon 07-30-2021 CO2 [Moles/Vol] 27.0 mmol/L 21.0-32.[address] [facility] Work Phone: Urea nitrogen/Creatinine [Mass ratio] 12.2 mg/mg 10-[address] [facility] Work Phone: Laboratory - Hematology and Cell countson 07-30-2021 Erythrocyte distribution width (RBC) [Entitic vol] 44.3 fL 35.1-43.[address] [facility] Work Phone: Erythrocyte distribution width (RBC) [Ratio] 14.2 % 11.6-14.[address] [facility] Work Phone: Immature granulocytes/100 WBC (Bld) 0.500 % 0.0-0.[address] [facility] Work Phone: Comment on above: IG% - Immature Granu locytes (promyelocytes, myelocytes and metamyelocytes) > 1% indicates that a LEFT SHIFT is Present. MCH (RBC) [Entitic mass] 30.8 pg 27.0-32.[address] [facility] Work Phone: Nucleated RBC/100 WBC (Bld) [Ratio] 0 % 0-[address] [facility] Work Phone: MCHC Auto (RBC) [Mass/Vol]on 07-30-2021 MCHC (RBC) [Mass/Vol] 36.0 g/dL 32-36 [facility] Work Phone: No Panel Informationon 07-30 Estimated Creatinine Clearance Calc 64.67 ml/min [facility] Work Phone: Estimated GFR (MDRD) Amer 81 mL/min >[address] [facility] Work Phone: Comment on above: GFR Calc Estimated GFR (MDRD) Non-Af Amer 67 mL/min >[address] [facility] Work Phone: Comment on above: Non- GFR Calc Platelets bldon 07-30-2021 Platelets (Bld) [#/Vol] 174 10*3/uL 150-[address] [facility] Work Phone: Serum or plasma calcium flower urement (mass/volume)on 07-30-2021 Calcium [Mass/Vol] 8.1 mg/dL 8.5-10.1 [facility] Work Phone: Serum or plasma creatinine m easurement (mass/volume)on 07-30-2021 Creatinine [Mass/Vol] 1.15 mg/dL 0.70-1.30 [facility] Work Phone: Comment on above: The validity of the calculated GFR & GFRAA in patients over 70 years has not been determined. Clinical correlation is essential. Serum or plasma urea nitroge n measurement (mass/volume)on 07-30-2021 Urea nitrogen [Mass/Vol] 14 mg/dL 7-[address] [facility] Work Phone: Thin prep Papanicolaou smear with manual screeningon 07-30-2021 Thin prep Papanicolaou smear with manual screening 5 5-[address] [facility] Work Phone: Basic Metabolic Panelon 09-15 Calcium [Mass/Vol] 9.5 mg/dL Normal 8.4-10.4 [facility] Comment on above: Performed By: #### B MP3M ####[facility] [id number] [place], [place] Anion gap [Moles/Vol] 10 mmol/L Normal 3-13 [facility] Comment on above: Performed By: #### B MP3M ####[facility] [employer] [id number] [employer] [place] CO2 [Moles/Vol] 27 mmol/L Normal 22-30 [facility] Comment on above: Performed By: #### B MP3M ####[facility] [id number] [place], [place] Creatinine [Mass/Vol] 0.87 mg/dL Normal 0.52-1.25 [facility] Comment on above: Performed By: #### B MP3M ####[id number] [employer] [place] GFR/1.73 sq M.predicted among blacks MDRD (S/P/Bld) [Vol rate/Area] mL/min/{1.73_m2} Normal >60 [facility] Comment on above: Performed By: #### B MP3M ####[address] [place], [place] GFR/1.73 sq M.predicted among non-blacks MDRD (S/P/Bld) [Vol rate/Area] 87.0 mL/min/{1.73_m2} Normal >60 [facility] Comment on above: Result Comment: KDIG O [...] creatinine secretion. Performed By: #### B MP3M ####[address] [place], [place] Glucose [Mass/Vol] 90 mg/dL Normal 70-100 [facility] Comment on above: Performed By: #### B MP3M ####[address] Urea nitrogen [Mass/Vol] 22 mg/dL High 7-20 [facility] Comment on above: Performed By: #### B MP3M ####[address] Chloride [Moles/Vol] 103 mmol/L Normal 98-107 [facility] Comment on above: Performed By: #### B MP3M ####[address] Potassium [Moles/Vol] 4.4 mmol/L Normal 3.5-5.1 [facility] Comment on above: Result Comment: Slig htly hemolysed, interpret with caution. Performed By: #### B MP3M ####[address] [place], [place] Sodium [Moles/Vol] 140 mmol/L Normal 135-145 [facility] Comment on above: Performed By: #### B MP3M ####[address] [address] Basic Metabolic Panel w/ Ref kenya to MGOrdered By: Brad Moralez on 09-26-2020 Anion gap [Moles/Vol] 10 mmol/L 3 - 13 mmol/L [facility] Work Phone: Calcium [Mass/Vol] 9.5 mg/dL 8.4 - 10. 4 mg/dL [facility] Work Phone: Chloride [Moles/Vol] 103 mmol/L 98 - 10 7 mmol/L [facility] Work Phone: CO2 [Moles/Vol] 27 mmol/L 22 - 30 mmol/L [facility] Work Phone: Creatinine [Mass/Vol] 0.87 mg/dL 0.52 - 1.25 mg/dL [facility] Work Phone: EGFR IF NonAfrican Lao 87.0 mL/min >60 [facility] Work Phone: Comment [...] MDRD (S/P/Bld) [Vol rate/Area] mL/min/{1.73_m2} >60 mL/min [facility] Work Phone: Glucose [Mass/Vol] 90 mg/dL 70 - 100 mg/dL [facility] Work Phone: Interpretation and review of laboratory results Abnormal [facility] Work Phone: Potassium [Moles/Vol] 4.4 mmol/L 3.5 - 5.1 mmol/L [employer] Work Phone: Comment on above: Slightly hemolysed, interpret with caution. Sodium [Moles/Vol] 140 mmol/L 135 - 145 mmol/L [employer] Work Phone: Urea nitrogen (BldV) [Mass/Vol] 22 mg/dL High 7 - 20 mg/dL [employer] Work Phone: Test Performed by [facility], [address] [place] [id number] [employer] Work Phone: CBCOrdered By: Brad Moralez on 09-26-2020 Hematocrit (Bld) [Volume fraction] 41.5 % 40.0 - 52.0 % [employer] Work Phone: Hemoglobin.gastrointesti nal spec 1 Ql (Stl) 13.8 g/dL 13.0 - 18.0 g/dL [employer] Work Phone: Interpretation and review of laboratory results Abnormal [employer] Work Phone: MCH (RBC) [Entitic mass] 27.9 pg 26. 0 - 34.0 pg [employer] Work Phone: MCHC (RBC) [Mass/Vol] 33.4 % 32.0 - 36.0 % [employer] Phone: MCV (RBC) [Entitic vol] 83.7 fL 80.0 - 98.0 fL [employer] Work Phone: Platelet distribution width (Bld) [Ratio] 16.4 % High 11.5 - 14.5 % [employer] Work Phone: Platelet mean volume (Bld) [Entitic vol] 7.0 fL Low 7.4 - 10.4 fL [employer] Work Phone: Platelets (Bld) [#/Vol] 359 10*3/uL 140 - 440 10*3/uL [employer] Work Phone: RBC (Bld) [#/Vol] 4.96 10*6/uL 4.40 - 5.9 0 10*6/uL [employer] Work Phone: WBC (Bld) [#/Vol] 9.9 10*3/uL 3.6 - 10.7 10*3/uL [employer] Work Phone: Test Performed by [facility], [address] [place] [id number] [employer] Work Phone: CR Chest Portableon 09-27-19 21 CR Chest Portable Patient Name: SUZETTE PALOMINO Diagnostic Radiology ACCESSION EXAM DATE/TIME PROCEDURE ORDERING PROVIDER [id number] 09/26/2020 07:14 EDT CR Chest Portable MD MORALEZ KEVIN CPT code 43881 Reason For Exam (CR Chest Portable) s/p lung decortication Report CHEST - PORTABLE: CLINICAL INDICATION: Status post right lung surgery/decortication TECHNIQUE: Portable AP COMPARISON: One day ago [...] Transcribed Date and Time: 09/26/2020 9:02 Normal [facility] Hemogramon 09-26-2020 Erythrocyte distribution width (RBC) [Ratio] 16.4 % High 11.5-14.5 [facility] Comment on above: Performed By: #### H EMOG #### [facility] [address] [place], [place] Hematocrit (Bld) [Volume fraction] 41.5 % Normal 40.0-52.0 [facility] Comment on above: Performed By: #### H EMOG #### [facility] [address] [place], [place] Hemoglobin (Bld) [Mass/Vol] 13.8 g/dL Normal 13.0-18.0 [facility] Comment on above: Performed By: #### H EMOG #### [address] [place], [place] MCH (RBC) [Entitic mass] 27.9 pg Normal 26.0-34.0 [facility] Comment on above: Performed By: #### H EMOG #### [address] [address] [place], [place] MCHC 33.4 % Normal 32.0-36.0 [facility] Comment on above: Performed By: #### H EMOG #### [address] [address] [address] [place], [place] MCV (RBC) [Entitic vol] 83.7 fL Normal 80.0-98.0 [facility] Comment on above: Performed By: #### H EMOG #### [address] [address] [place], [place] Platelet mean volume (Bld) [Entitic vol] 7.0 fL Low 7.4-10.4 [facility] Comment on above: Performed By: #### H EMOG #### [address] [address] [address] [place], [place] Platelets (Bld) [#/Vol] 359 10*3/uL Normal 140-440 [facility] Comment on above: Performed By: #### H EMOG #### [address] [address] [address] [place], [place] RBC (Bld) [#/Vol] 4.96 10*6/uL Normal 4.40-5.90 [facility] Comment on above: Performed By: #### H EMOG #### [facility] [address] [place] [address] WBC (Bld) [#/Vol] 9.9 10*3/uL Normal 3.6-10.7 [facility] Comment on above: Performed By: #### H EMOG #### [facility] [address] [place] [address] XR CHEST PORTABLEOrdered By: Brad Moralez on 09-26-2020 Patient Name: SUZETTE PALOMINO Diagnostic Radiology ACCESSION EXAM DATE/TIME PROCEDURE ORDERING PROVIDER [id number] 09/26/2020 07:14 EDT CR Chest Portable MD MORALEZ KEVIN CPT code 01463 Reason For Exam (CR Chest Portable) s/p lung decortication Report CHEST - PORTABLE: CLINICAL INDICATION: Status post right lung surgery/decortication TECHNIQUE: Portable AP COMPARISON: One day ago [...] VLADIMIR Transcribed Date and Time: 09/26/2020 9:02 [facility] Work Phone: Stu, [facility] Incoming Radiology Results From [facility] - 09/26/2020 9:07 AM EDT [facility]: [id number] Radiology ACCESSION EXAM DATE/TIME PROCEDURE ORDERING PROVIDER [id number] 09/26/2020 07:14 EDT CR Chest Portable MD MORALEZ KEVIN CPT code 55724 Reason For Exam (CR Chest Portable) s/p lung decortication Report CHEST - PORTABLE: CLINICAL INDICATION: Status post right lung surgery/decortication TECHNIQUE: Portable AP COMPARISON: One day ago [...] Time: 09/26/2020 9:05 am Signed by: MD ACLVILLO VLADIMIR Transcribed Date and Time: 09/26/2020 9:02 [facility] Work Phone: Basic Metabolic PanelOrdered By: Brad Moralez on 09-25-2020 Anion gap [Moles/Vol] 9 mmol/L Normal 3-13 [facility] Work Phone: Comment on above: Performed By: #### P HOS3, MG3, BMP3M, HEMOG #### [address] [address] Calcium [Mass/Vol] 9.2 mg/dL Normal 8.4-10.4 [facility] Work Phone: Comment on above: Performed By: #### P HOS3, MG3, BMP3M, HEMOG #### [facility] [address] [place], [place] CO2 [Moles/Vol] 25 mmol/L Normal 22-30 [facility] Work Phone: Comment on above: Performed By: #### P HOS3, MG3, BMP3M, HEMOG #### [facility] [address] [place], [place] Glucose [Mass/Vol] 159 mg/dL High 70-100 [facility] Work Phone: Comment on above: Performed By: #### P HOS3, MG3, BMP3M, HEMOG #### [facility] [address] [place], [place] Creatinine [Mass/Vol] 0.79 mg/dL Normal 0.52-1.25 [facility] Work Phone: Comment on above: Performed By: #### P HOS3, MG3, BMP3M, HEMOG #### [facility] [address] [place], [place] GFR/1.73 sq M.predicted among blacks MDRD (S/P/Bld) [Vol rate/Area] mL/min/{1.73_m2} Normal >60 [facility] Work Phone: Comment on above: Performed By: #### P HOS3, MG3, BMP3M, HEMOG #### [facility] [address] [place], [place] Potassium [Moles/Vol] 3.9 mmol/L Normal 3.5-5.1 [facility] [place] Work Phone: Comment on above: Performed By: #### P HOS3, MG3, BMP3M, HEMOG #### [facility] [address] [place], [place] Sodium [Moles/Vol] 135 mmol/L Normal 135-145 [facility] Work Phone: Comment on above: Performed By: #### P HOS3, MG3, BMP3M, HEMOG #### [facility] [address] [place] [address] [address] [place], [place] Chloride [Moles/Vol] 101 mmol/L Normal 98-107 [facility] Work Phone: Comment on above: Performed By: #### P HOS3, MG3, BMP3M, HEMOG #### [facility] [address] [place] [address] [address] [place], [place] Basic Metabolic Panelon 09-15 Urea nitrogen [Mass/Vol] 19 mg/dL Normal 7-20 [facility] Comment on above: Performed By: #### P HOS3, MG3, BMP3M, HEMOG #### [facility] [address] [address] [address] [place], [place] eGFR OTHER > 90.0 Normal >60 [facility] Comment on above: Result Comment: KDIG O [...] #### P HOS3, MG3, BMP3M, HEMOG #### [facility] [address] [place] [address] [place], [place] Basic Metabolic Panel w/ Ref kenya to MGOrdered By: Brad Moralez on 09-25-2020 EGFR IF NonAfrican Lao >90.0 >60 mL/min [facility] Work Phone: Comment on above: KDIGO guidelines [...] [Mass/Vol] 19 mg/dL 7 - 20 mg/dL [employer] Work Phone: CBCOrdered By: Brad Moralez on 09-25-2020 Hematocrit (Bld) [Volume fraction] 38.3 % Low 40.0 - 52.0 % [employer] Work Phone: Hemoglobin.gastrointesti nal spec 1 Ql (Stl) 13.2 g/dL 13.0 - 18.0 g/dL [employer] [facility] Work Phone: MCH (RBC) [Entitic mass] 27.7 pg 26. 0 - 34.0 pg [employer] Work Phone: MCHC (RBC) [Mass/Vol] 34.5 % 32.0 - 36.0 % [employer] [facility] Work Phone: MCV (RBC) [Entitic vol] 80.3 fL 80.0 - 98.0 fL [facility] Work Phone: Platelet distribution width (Bld) [Ratio] 16.3 % High 11.5 - 14.5 % [employer] Work Phone: Platelet mean volume (Bld) [Entitic vol] 6.4 fL Low 7.4 - 10.4 fL [employer] Work Phone: Platelets (Bld) [#/Vol] 303 10*3/uL 140 - 440 10*3/uL [employer] [facility] [employer] Work Phone: RBC (Bld) [#/Vol] 4.77 10*6/uL 4.40 - 5.9 0 10*6/uL [employer] Work Phone: WBC (Bld) [#/Vol] 8.5 10*3/uL 3.6 - 10.7 10*3/uL [employer] [facility] [employer] Work Phone: CR Chest Portableon 09-26-19 21 CR Chest Portable Patient Name: SUZETTE PALOMINO Diagnostic Radiology ACCESSION EXAM DATE/TIME PROCEDURE ORDERING PROVIDER [id number] 09/25/2020 05:59 EDT CR Chest Portable MD MORALEZ KEVIN CPT code 44627 Reason For Exam (CR Chest Portable) s/p [...] are unchanged right mid and lower lung infiltrates/atelectas is. There are mild atelectatic changes in the left lower lung which have improved. Report Dictated on Final Dictated: 09/25/2020 7:58 am Dictating Physician: DO CARTWRIGHT ANTHONY Signed Date and Time: 09/25/2020 7:59 am Signed by: DO CARTWRIGHT ANTHONY Transcribed Date and Time: 09/25/2020 7:58 Normal [facility] Hemogramon 09-25-2020 Erythrocyte distribution width (RBC) [Ratio] 16.3 % High 11.5-14.5 [facility] Comment on above: Performed By: #### P HOS3, MG3, BMP3M, HEMOG #### [address] [address] [address] [place], [place] Hematocrit (Bld) [Volume fraction] 38.3 % Low 40.0-52.0 [facility] Comment on above: Performed By: #### P HOS3, MG3, BMP3M, HEMOG #### [address] [address] [place], [place] Hemoglobin (Bld) [Mass/Vol] 13.2 g/dL Normal 13.0-18.0 [facility] Comment on above: Performed By: #### P HOS3, MG3, BMP3M, HEMOG #### [address] MCH (RBC) [Entitic mass] 27.7 pg Normal 26.0-34.0 [facility] Comment on above: Performed By: #### P HOS3, MG3, BMP3M, HEMOG #### [address] MCHC 34.5 % Normal 32.0-36.0 [facility] Comment on above: Performed By: #### P HOS3, MG3, BMP3M, HEMOG #### [address] MCV (RBC) [Entitic vol] 80.3 fL Normal 80.0-98.0 [facility] Comment on above: Performed By: #### P HOS3, MG3, BMP3M, HEMOG #### [address] Platelet mean volume (Bld) [Entitic vol] 6.4 fL Low 7.4-10.4 [facility] Comment on above: Performed By: #### P HOS3, MG3, BMP3M, HEMOG #### [address] Platelets (Bld) [#/Vol] 303 10*3/uL Normal 140-440 [facility] Comment on above: Performed By: #### P HOS3, MG3, BMP3M, HEMOG #### [facility] [address] [place], [place] RBC (Bld) [#/Vol] 4.77 10*6/uL Normal 4.40-5.90 [facility] Comment on above: Performed By: #### P HOS3, MG3, BMP3M, HEMOG #### [address] WBC (Bld) [#/Vol] 8.5 10*3/uL Normal 3.6-10.7 [facility] Comment on above: Performed By: #### P HOS3, MG3, BMP3M, HEMOG #### [address] Leukodepleted Red Cellson Leukodepleted Red Cells Leukodepleted Re d Cells: [id number] released 09/25/20 07:30 JMV Unit Blood Type: O Unit Blood Rh: POS Blood Product Code: LP1 Unit Number: [id number] Unit Status: released Barcoded Unit Number: =[id number] Barcoded Product Code: = Barcoded ABO/Rh: =%5100 Unit Expiration: [id number] Leukodepleted Red Cells: [id number] released 09/25/20 07:30 [facility] Unit Blood Type: O Unit Blood Rh: POS Blood Product Code: LP1 Unit Number: [id number] Unit Status: released Barcoded Unit Number: =[id number] Barcoded Product Code: = Barcoded ABO/Rh: =%5100 Unit Expiration: [id number] Unit Volume Transfused: 0 Unit Transfusion Start Date/Time: Unit Transfusion End Date/Time: Normal [facility] Comment on above: Performed By: #### L RC ####[place] [address]#### TSGL ####[facility] MagnesiumOrdered By: Brad Ashraf on 09-25-2020 Magnesium [Mass/Vol] 1.8 mg/dL Normal 1.6-2.3 [facility] Work Phone: Comment on above: Performed By: #### P HOS3, MG3, BMP3M, HEMOG #### [facility] [address] [place] [phone] No Panel InformationOrdered By: Brad Moralez on 09-25-2020 Interpretation and review of laboratory results Abnormal [facility] Work Phone: Test Performed by [facility], [address] [place] [address] [facility] Work Phone: PhosphorusOrdered By: Brad Moralez on 09-25-2020 Phosphate [Mass/Vol] 2.9 mg/dL Normal 2.5-4.5 [facility] [employer] Work Phone: Comment on above: Performed By: #### P HOS3, MG3, BMP3M, HEMOG #### [facility] [address] [place] [phone] XR CHEST PORTABLEOrdered By: Brad Moralez on 09-25-2020 Patient Name: SUZETTE PALOMINO Diagnostic Radiology ACCESSION EXAM DATE/TIME PROCEDURE ORDERING PROVIDER [id number] 09/25/2020 05:59 EDT CR Chest Portable MD MORALEZ KEVIN CPT code 41708 Reason For Exam (CR Chest Portable) s/p [...] are unchanged right mid and lower lung infiltrates/atelectas is. There are mild atelectatic changes in the left lower lung which have improved. Report Dictated on --- Final --- Dictated: 09/25/2020 7:58 am Dictating Physician: DO CARTWRIGHT ANTHONY Signed Date and Time: 09/25/2020 7:59 am Signed by: DO CARTWRIGHT ANTHONY Transcribed Date and Time: 09/25/2020 7:58 [facility] Work Phone: Stu, [facility] Incoming Radiology Results From [facility] - 09/25/2020 8:00 AM EDT Patient Name: SUZETTE PALOMINO Diagnostic Radiology ACCESSION EXAM DATE/TIME PROCEDURE ORDERING PROVIDER [id number] 09/25/2020 05:59 EDT CR Chest Portable MD MORALEZ KEVIN CPT code 69965 Reason For Exam (CR Chest Portable) s/p [...] are unchanged right mid and lower lung infiltrates/atelectas is. There are mild atelectatic changes in the left lower lung which have improved. Report Dictated on --- Final --- Dictated: 09/25/2020 7:58 am Dictating Physician: DO CARTWRIGHT ANTHONY Signed Date and Time: 09/25/2020 7:59 am Signed by: DO CARTWRIGHT ANTHONY Transcribed Date and Time: 09/25/2020 7:58 [facility] Work Phone: CBCOrdered By: Margareth Lou on 09-24-2020 Hematocrit (Bld) [Volume fraction] 44.1 % 40.0 - 52.0 % [facility] Work Phone: Hemoglobin.gastrointesti nal spec 1 Ql (Stl) 14.9 g/dL 13.0 - 18.0 g/dL [employer] Work Phone: Interpretation and review of laboratory results Abnormal [employer] Work Phone: MCH (RBC) [Entitic mass] 27.8 pg 26. 0 - 34.0 pg [employer] Work Phone: MCHC (RBC) [Mass/Vol] 33.8 % 32.0 - 36.0 % [employer] Work Phone: MCV (RBC) [Entitic vol] 82.1 fL 80.0 - 98.0 fL [employer] Work Phone: Platelet distribution width (Bld) [Ratio] 16.3 % High 11.5 - 14.5 % [employer] Work Phone: Platelet mean volume (Bld) [Entitic vol] 6.5 fL Low 7.4 - 10.4 fL [employer] Work Phone: Platelets (Bld) [#/Vol] 316 10*3/uL 140 - 440 10*3/uL [employer] Work Phone: RBC (Bld) [#/Vol] 5.37 10*6/uL 4.40 - 5.9 0 10*6/uL [employer] Work Phone: WBC (Bld) [#/Vol] 6.5 10*3/uL 3.6 - 10.7 10*3/uL [employer] Work Phone: Test Performed by [facility], [address] [place] [address] [employer] Work Phone: CR Chest Portableon 09-25-19 21 CR Chest Portable Patient Name: SUZETTE PALOMINO Diagnostic Radiology ACCESSION EXAM DATE/TIME PROCEDURE ORDERING PROVIDER [id number] 09/24/2020 17:42 EDT CR Chest Portable MD MORALEZ KEVIN CPT code 82918 Reason For Exam (CR Chest Portable) s/p [...] Transcribed Date and Time: 09/24/2020 5:20 Normal [facility] Hemoglobin A1Con 09-24-2020 Glucose [Mass/Vol] 117 mg/dL Normal [facility] Comment on above: Performed By: #### H A1C2, HEMOG ####[facility] [employer] [place] [email or web address] [address] HbA1c (Bld) [Mass fraction] 5.7 % Abnormal [facility] Comment on above: Result Comment: Norm al less than 5.7% Prediabetes 5.7% to 6.4% Diabetes 6.5% or higher --HgbA1C levels may not be accurate in patients who have renal disease, received recent blood transfusions, are anemic, or who have dyshemoglobinemia. Performed By: #### H A1C2, HEMOG ####[facility] [place] [address] Hemoglobin [id number] By: St sanchez Lou on 09-24-2020 HbA1c (Bld) [Mass fraction] 5.7 % Abnormal [facility] Work Phone: Comment on above: Normal less than 5.7 % Prediabetes 5.7% to 6.4% Diabetes 6.5% or higher --HgbA1C levels may not be accurate in patients who have renal disease, received recent blood transfusions, are anemic, or who have dyshemoglobinemia. Interpretation and review of laboratory results Abnormal [facility] Work Phone: Magnesium [Mass/Vol] 117 mg/dL [facility] Work Phone: Test Performed by [facility], [facility] [place] [address] [facility] Work Phone: Hemogramon 09-24-2020 Erythrocyte distribution width (RBC) [Ratio] 16.3 % High 11.5-14.5 [facility] Comment on above: Performed By: #### H A1C2, HEMOG ####[address] [place], [place] Hematocrit (Bld) [Volume fraction] 44.1 % Normal 40.0-52.0 [facility] Comment on above: Performed By: #### H A1C2, HEMOG ####[address] [place], [place] Hemoglobin (Bld) [Mass/Vol] 14.9 g/dL Normal 13.0-18.0 [facility] Comment on above: Performed By: #### H A1C2, HEMOG ####[address] [place], [place] MCH (RBC) [Entitic mass] 27.8 pg Normal 26.0-34.0 [facility] Comment on above: Performed By: #### H A1C2, HEMOG ####[address] [place], [place] MCHC 33.8 % Normal 32.0-36.0 [facility] Comment on above: Performed By: #### H A1C2, HEMOG ####[address] [place], [place] MCV (RBC) [Entitic vol] 82.1 fL Normal 80.0-98.0 [facility] Comment on above: Performed By: #### H A1C2, HEMOG ####[address] [place], [place] Platelet mean volume (Bld) [Entitic vol] 6.5 fL Low 7.4-10.4 [facility] Comment on above: Performed By: #### H A1C2, HEMOG ####[address] [place], [place] Platelets (Bld) [#/Vol] 316 10*3/uL Normal 140-440 [facility] Comment on above: Performed By: #### H A1C2, HEMOG ####[address] [place], [place] RBC (Bld) [#/Vol] 5.37 10*6/uL Normal 4.40-5.90 [facility] Comment on above: Performed By: #### H A1C2, HEMOG ####[address] [place], [place] WBC (Bld) [#/Vol] 6.5 10*3/uL Normal 3.6-10.7 [facility] Comment on above: Performed By: #### H A1C2, HEMOG ####[address] [place], [place] Op Noteon 09-24-2020 Op Note PATIENT: [...] not feel any lung masses either. A 24-[place] Wilder drain was placed in the chest [...] Heart and Lung unit. [employer] Job ID: [id number] Brad Gama MD DOD:09/24/2020 04:34 P MUNA/oni DOT:09/24/2020 05:30 P Job Number: [id number] Document Number: [id number] cc: Brad Gama MD [facility] [address] [place] [address] [address] [place] [id number] Normal [facility] XR CHEST PORTABLEOrdered By: Brad Moralez on 09-24-2020 Patient Name: SUZETTE PALOMINO Diagnostic Radiology ACCESSION EXAM DATE/TIME PROCEDURE ORDERING PROVIDER [id number] 09/24/2020 17:42 EDT CR Chest Portable MD MORALEZ KEVIN CPT code 93315 Reason For Exam (CR Chest Portable) s/p [...] R Transcribed Date and Time: 09/24/2020 5:20 [facility] Work Phone: [facility] Incoming Radiology Results From [facility] - 09/24/2020 5:42 PM EDT Patient Name: SUZETTE PALOMINO Diagnostic Radiology ACCESSION EXAM DATE/TIME PROCEDURE ORDERING PROVIDER [id number] 09/24/2020 17:42 EDT CR Chest Portable MD MORALEZ KEVIN CPT code 97237 Reason For Exam (CR Chest Portable) s/p [...] R Transcribed Date and Time: 09/24/2020 5:20 [facility] Work Phone: CR Chest PA/LATon 09-20-2020 CR Chest PA/LAT Patient [facility]: [id number] Radiology ACCESSION EXAM DATE/TIME PROCEDURE ORDERING PROVIDER [id number] 09/20/2020 15:38 EDT CR Chest PA and LAT [id number] -SHASHANK UMANZOR CPT code 88666 Reason For Exam (CR Chest PA and LAT) preoperative evaluation Report CHEST X-RAY PA and lateral CLINICAL INDICATION: Preoperative examination PA and lateral radiographs of the chest were obtained. COMPARISON: None FINDINGS: The cardiac silhouette is within normal limits. Volume loss of the right lung with associated atelectasis/windows server architect ural distortion. A small right pleural effusion may be present. No left-sided pleural effusion or focal consolidation is seen within the lungs. No pneumothorax is identified. Degenerative changes of the thoracic spine are noted. IMPRESSION: Volume loss of the right lung with associated atelectasis/windows server architect ural distortion. A small right pleural effusion may be present. Report Dictated on Final Dictated: 09/20/2020 3:58 pm Dictating Physician: MD MCDONALD JASON Signed Date and Time: 09/20/2020 3:59 pm Signed by: MD MCDONALD JASON Transcribed Date and Time: 09/20/2020 3:58 Normal [facility] Comp Metabolic Panelon 09-20 ALP [Catalytic activity/Vol] 85 U/L Normal 38-126 [facility] Comment on above: Performed By: #### C MP3, MG3, HA1C2 #### [facility] [facility] [address] [place], [place] ALT [Catalytic activity/Vol] 15 U/L Normal 0-49 [facility] Comment on above: Result Comment: The ALT test is performed by an updated assay method. Please note that the reference intervals have been changed and are now sex specific. Performed By: #### C MP3, MG3, HA1C2 #### [place] [address] [place], [place] AST [Catalytic activity/Vol] 34 U/L Normal 15-46 [facility] Comment on above: Performed By: #### C MP3, MG3, HA1C2 #### [place] [address] [place], [place] Calcium [Mass/Vol] 9.4 mg/dL Normal 8.4-10.4 [facility] Comment on above: Performed By: #### C MP3, MG3, HA1C2 #### [place] [address] [address] [place], [place] Glucose [Mass/Vol] 91 mg/dL Normal 70-100 [facility] Comment on above: Performed By: #### C MP3, MG3, HA1C2 #### [facility] [address] [place], [place] Urea nitrogen [Mass/Vol] 18 mg/dL Normal 7-20 [facility] Comment on above: Performed By: #### C MP3, MG3, HA1C2 #### [facility] [address], [place] Anion gap [Moles/Vol] 8 mmol/L Normal 3-13 [facility] Comment on above: Performed By: #### C MP3, MG3, HA1C2 #### [place] [address] [place], [place] Bilirubin [Mass/Vol] 0.9 mg/dL Normal 0.2-1.3 [facility] Comment on above: Performed By: #### C MP3, MG3, HA1C2 #### [address] CO2 [Moles/Vol] 28 mmol/L Normal 22-30 [facility] Comment on above: Performed By: #### C MP3, MG3, HA1C2 #### [place] [address] [place], [place] Creatinine [Mass/Vol] 0.99 mg/dL Normal 0.52-1.25 [facility] Comment on above: Performed By: #### C MP3, MG3, HA1C2 #### [address] GFR/1.73 sq M.predicted among blacks MDRD (S/P/Bld) [Vol rate/Area] 88.6 mL/min/{1.73_m2} Normal >60 [facility] Comment on above: Performed By: #### C MP3, MG3, HA1C2 #### [address] GFR/1.73 sq M.predicted among non-blacks MDRD (S/P/Bld) [Vol rate/Area] 76.5 mL/min/{1.73_m2} Normal >60 [facility] Comment on above: Result Comment: KDIG O [...] tubular creatinine secretion. Performed By: #### C MP3, MG3, HA1C2 #### [place] [address] [place], [place] Protein [Mass/Vol] 7.7 g/dL Normal 6.3-8.2 [facility] Comment on above: Performed By: #### C MP3, MG3, HA1C2 #### [place] [address] [address] [place], [place] Potassium [Moles/Vol] 3.8 mmol/L Normal 3.5-5.1 [facility] Comment on above: Performed By: #### C MP3, MG3, HA1C2 #### [place] [address] [place], [place] Sodium [Moles/Vol] 139 mmol/L Normal 135-145 [facility] Comment on above: Performed By: #### C MP3, MG3, HA1C2 #### [place] [address] [place], [place] Albumin [Mass/Vol] 4.4 g/dL Normal 3.5-5.0 [facility] Comment on above: Performed By: #### C MP3, MG3, HA1C2 #### [place] [address] [place], [place] Chloride [Moles/Vol] 103 mmol/L Normal 98-107 [facility] Comment on above: Performed By: #### C MP3, MG3, HA1C2 #### [place] [address] [place], [place] Comprehensive Metabolic Pane lOrdered By: Shashank Umanzor on 09-20-2020 Albumin [Mass/Vol] 4.4 g/dL 3.5 - 5.0 g/dL [facility] Work Phone: ALP (Bld) [Catalytic activity/Vol] 85 U/L 38 - 126 U/L [facility] Work Phone: ALT [Catalytic activity/Vol] 15 U/L 0 - 49 U/L [facility] Work Phone: Comment on above: The ALT [...] [Mass/Vol] 0.99 mg/dL 0.52 - 1.25 mg/dL [employer] Work Phone: EGFR IF NonAfrican Lao 76.5 mL/min >60 [facility] Work Phone: Comment [...] fraction] 7.7 g/dL 6.3 - 8.2 g/dL [facility] Work Phone: GFR/1.73 sq M.predicted among blacks MDRD (S/P/Bld) [Vol rate/Area] 88.6 mL/min/{1.73_m2} >60 [employer] Work Phone: Glucose [Mass/Vol] 91 mg/dL 70 - 100 mg/dL [employer] [facility] Work Phone: Potassium [Moles/Vol] 3.8 mmol/L 3.5 - 5.1 mmol/L [employer] [facility] Work Phone: Sodium [Moles/Vol] 139 mmol/L 135 - 145 mmol/L [employer] [facility] Work Phone: Urea nitrogen (BldV) [Mass/Vol] 18 mg/dL 7 - 20 mg/dL [employer] Work Phone: Hemoglobin A1Con 09-20-2020 Glucose [Mass/Vol] 117 mg/dL Normal [facility] Comment on above: Performed By: #### C MP3, MG3, HA1C2 ####[facility] [place] [address] HbA1c (Bld) [Mass fraction] 5.7 % Abnormal [facility] Comment on above: Result Comment: Norm al less than 5.7% Prediabetes 5.7% to 6.4% Diabetes 6.5% or higher --HgbA1C levels may not be accurate in patients who have renal disease, received recent blood transfusions, are anemic, or who have dyshemoglobinemia. Performed By: #### C MP3, MG3, HA1C2 ####[facility] [place] [address] Hemoglobin K0GYicbcan By: Bc in Sieper on 09-20-2020 HbA1c (Bld) [Mass fraction] 5.7 % Abnormal [employer] Work Phone: Comment on above: Normal less than 5.7 % Prediabetes 5.7% to 6.4% Diabetes 6.5% or higher --HgbA1C levels may not be accurate in patients who have renal disease, received recent blood transfusions, are anemic, or who have dyshemoglobinemia. Interpretation and review of laboratory results Abnormal [employer] Work Phone: Magnesium [Mass/Vol] 117 mg/dL [facility] Work Phone: Test Performed by [facility], [address] [place] [id number] [facility] Work Phone: MRSA by PCROrdered By: Shashank Umanzor on 09-20-2020 Staph Aureus Sc No S. aureus detected. Negative nasal MRSA PCR has a high negative predictive value for MRSA pneumonia. Consider stopping vancomycin if no other clinical indication. Contact Antimicrobial Stewardship for further recommendations. The analytical performance characteristics of this assay have been determined by [employer] in accordance with CLIA regulations. The modifications have not been cleared or approved by the U. S. Food and Drug Administration; however, the FDA has determined that such clearance or approval is not necessary. [facility] Work Phone: Test Performed by [facility], [address] [place] [id number] [place] [address] Work Phone: Magnesiumon 09-20-2020 Magnesium [Mass/Vol] 1.9 mg/dL Normal 1.6-2.3 [facility] Comment on above: Performed By: #### C MP3, MG3, HA1C2 #### [address] [address] MagnesiumOrdered By: Shashank cunningham on 09-20-2020 Magnesium [Mass/Vol] 1.9 mg/dL 1.6 - 2 .3 mg/dL [facility] Work Phone: No Panel InformationOrdered By: Shashank Umanzor on 09-20-2020 Test Performed by [facility], [address] [place] [id number] [place] [address] Work Phone: Staph Aureus Complete Nasalo n 09-20-2020 Staph Aureus Complete Nasal Staph Screen --> Status: F No S. aureus detected. Negative nasal MRSA PCR has a high negative predictive value for MRSA pneumonia. Consider stopping vancomycin if no other clinical indication. Contact Antimicrobial Stewardship for further recommendations. The analytical performance characteristics of this assay have been determined by [employer] in accordance with CLIA regulations. The modifications [...] of this assay have been determined by [employer] in accordance with CLIA regulations. The modifications have not been cleared or approved by the U. S. Food and Drug Administration; however, the FDA has determined that such clearance or approval is not necessary. Normal [facility] Comment on above: Performed By: #### S APCR ####[facility] [place] [address] TS GELon 09-20-2020 TS GEL ABO Group: O Rh, Gel: POS Antibody Screen Gel: NEG Normal [facility] Comment on above: Performed By: #### L RC ####[address] [address]#### TSGL ####[facility] TYPE AND SCREENOrdered By: Nicol Umanzor on 09-20-2020 ABO Grouping O [employer] Work Phone: Rh Type Positive [employer] Work Phone: Test Performed by [facility] [address] [employer] Work Phone: XR CHEST (2 VW)Ordered By: Nicol Umanzor on 09-20-2020 [id number] ACCESSION EXAM DATE/TIME PROCEDURE ORDERING PROVIDER [id number] 09/20/2020 15:38 EDT CR Chest PA & LAT [id number] -SHASHANK UMNAZOR CPT code 94069 Reason For Exam (CR Chest PA & LAT) preoperative evaluation Report CHEST X-RAY PA and lateral CLINICAL INDICATION: Preoperative examination PA and lateral radiographs of the chest were obtained. COMPARISON: None FINDINGS: The cardiac silhouette is within normal limits. Volume loss of the right lung with associated atelectasis/windows server architect ural distortion. A small right pleural effusion may be present. No left-sided pleural effusion or focal consolidation is seen within the lungs. No pneumothorax is identified. Degenerative changes of the thoracic spine are noted. IMPRESSION: Volume loss of the right lung with associated atelectasis/windows server architect ural distortion. A small right pleural effusion may be present. Report Dictated on --- Final --- Dictated: 09/20/2020 3:58 pm Dictating Physician: MD MCODNALD JASON Signed Date and Time: 09/20/2020 3:59 pm Signed by: MD MCDONALD JASON Transcribed Date and Time: 09/20/2020 3:58 [facility] Work Phone: Stu, [facility] Incoming Radiology Results From [facility] - 09/20/2020 4:00 PM EDT Patient Name: SUZETTE PALOMINO Diagnostic Radiology ACCESSION EXAM DATE/TIME PROCEDURE ORDERING PROVIDER [id number] 09/20/2020 15:38 EDT CR Chest PA & LAT [id number] -SHASHANK UMANZOR CPT code 21150 Reason For Exam (CR Chest PA & LAT) preoperative evaluation Report CHEST X-RAY PA and lateral CLINICAL INDICATION: Preoperative examination PA and lateral radiographs of the chest were obtained. COMPARISON: None FINDINGS: The cardiac silhouette is within normal limits. Volume loss of the right lung with associated atelectasis/windows server architect ural distortion. A small right pleural effusion may be present. No left-sided pleural effusion or focal consolidation is seen within the lungs. No pneumothorax is identified. Degenerative changes of the thoracic spine are noted. IMPRESSION: Volume loss of the right lung with associated atelectasis/windows server architect ural distortion. A small right pleural effusion may be present. Report Dictated on --- Final --- Dictated: 09/20/2020 3:58 pm Dictating Physician: MD MCDONALD JASON Signed Date and Time: 09/20/2020 3:59 pm Signed by: MD MCDONALD JASON Transcribed Date and Time: 09/20/2020 3:58 [facility] Work Phone: Vital Signs Date Time Vital Sign Value Performing Clinician Facility 11-29-2024 15:44-0400 Body height 182.[address] Georgiana Mcfadden MD Work Phone: [facility] 11-29-2024 15:44-0400 Body mass index (BMI) [Ratio] 33 kg/m2 Dr. Georgiana Mcfadden MD Work Phone: [facility] 11-29-2024 15:44-0400 Body weight 110.[address] Georgiana Mcfadden MD Work Phone: [facility] 11-29-2024 15:44-0400 Diastolic blood pressure 83 mm[Hg] Dr. Georgiana Mcfadden MD Work Phone: [facility] 11-29-2024 15:44-0400 Heart rate 79 /min Dr. Georgiana Mcfadden MD Work Phone: [facility] 11-29-2024 15:44-0400 Respiratory rate 16 /min Dr. Georgiana Mcfadden MD Work Phone: [facility] 11-29-2024 15:44-0400 Systolic blood pressure 134 mm[Hg] Dr. Georgiana Mcfadden MD Work Phone: [facility] 03-27-2023 10:01-0500 Body height 182.[address] Georgiana Mcfadden Work Phone: [facility] 03-27-2023 10:01-0500 Body mass index (BMI) [Ratio] 32.1 kg/m2 Dr. Georgiana Mcfadden Work Phone: [facility] 03-27-2023 10:01-0500 Body temperature 97.8 [degF] Dr. Georgiana Mcfadden Work Phone: [facility] 03-27-2023 10:01-0500 Body weight 107.[address] Georgiana Mcfadden Work Phone: [facility] 03-27-2023 10:01-0500 Diastolic blood pressure 82 mm[Hg] Dr. Georgiana Mcfadden Work Phone: [facility] 03-27-2023 10:01-0500 Heart rate 72 /min Dr. Georgiana Mcfadden Work Phone: [facility] 03-27-2023 10:01-0500 Respiratory rate 18 /min Dr. Georgiana Mcfadden Work Phone: [facility] 03-27-2023 10:01-0500 SaO2% (BldA) [Mass fraction] 96 % Dr. Georgiana Mcfadden Work Phone: [facility] 03-27-2023 10:01-0500 Systolic blood pressure 143 mm[Hg] Dr. Georgiana Mcfadden Work Phone: [facility] 12-11-2022 15:17-0400 Body weight 105.[address] Georgiana Mcfadden Work Phone: [facility] 12-11-2022 15:17-0400 Diastolic blood pressure 75 mm[Hg] Dr. Georgiana Mcfadden Work Phone: [facility] 12-11-2022 15:17-0400 Heart rate 77 /min Dr. Georgiana Mcfadden Work Phone: [facility] 12-11-2022 15:17-0400 Respiratory rate 18 /min Dr. Georgiana Mcfadden Work Phone: [facility] 12-11-2022 15:17-0400 Systolic blood pressure 128 mm[Hg] Dr. Georgiana Mcfadden Work Phone: [facility] 12-11-2022 10:10-0400 Body height 182.[address] Georgiana Mcfadden Work Phone: [facility] 02-10-2022 08:01-0400 Body height 182.[address] Georgiana Mcfadden Work Phone: [facility] Work Phone: 02-10-2022 08:01-0400 Body mass index (BMI) [Ratio] 29.5 kg/m2 Dr. Georgiana Mcfadden Work Phone: [facility] Work Phone: 02-10-2022 08:01-0400 Body weight 98.[address] Georgiana Mcfadden Work Phone: [facility] Work Phone: 02-10-2022 08:01-0400 Diastolic blood pressure 82 mm[Hg] Dr. Georgiana Mcfadden Work Phone: [facility] Work Phone: 02-10-2022 08:01-0400 Heart rate 79 /min Dr. Georgiana Mcfadden Work Phone: [facility] Work Phone: 02-10-2022 08:01-0400 SaO2% (BldA) [Mass fraction] 96 % Dr. Georgiana Mcfadden Work Phone: [facility] Work Phone: 02-10-2022 08:01-0400 Systolic blood pressure 128 mm[Hg] Dr. Georgiana Mcfadden Work Phone: [facility] Work Phone: 09-04-2021 13:46-0400 Body weight 102.[address] Georgiana Mcfadden Work Phone: [facility] Work Phone: 08-08-2021 09:53-0400 Body weight 102.[address] Georgiana Mcfadden Work Phone: [facility] Work Phone: 07-30-2021 09:02-0400 Body temperature 98.3 [degF] Dr. Georgiana Mcfadden Work Phone: [facility] Work Phone: 07-30-2021 09:02-0400 Diastolic blood pressure 87 mm[Hg] Dr. Georgiana Mcfadden Work Phone: [facility] Work Phone: 07-30-2021 09:02-0400 Heart rate 84 /min Dr. Georgiana Mcfadden Work Phone: [facility] Work Phone: 07-30-2021 09:02-0400 Respiratory rate 14 /min Dr. Georgiana Mcfadden Work Phone: [facility] Work Phone: 07-30-2021 09:02-0400 SaO2% (BldA) [Mass fraction] 97 % Dr. Georgiana Mcfadden Work Phone: [facility] Work Phone: 07-30-2021 09:02-0400 Systolic blood pressure 135 mm[Hg] Dr. Georgiana Mcfadden Work Phone: [facility] Work Phone: 07-29-2021 15:27-0400 Body height 182.[address] Georgiana Mcfadden Work Phone: [facility] Work Phone: 07-29-2021 15:27-0400 Body mass index (BMI) [Ratio] 32 kg/m2 Dr. Georgiana Mcfadden Work Phone: [facility] Work Phone: 07-29-2021 15:27-0400 Body weight [address] Georgiana Mcfadden Work Phone: [facility] Work Phone: 06-13-2021 07:04-0500 Body temperature 97 [degF] Dr. Georgiana Mcfadden Work Phone: [facility] Work Phone: 06-13-2021 07:04-0500 Diastolic blood pressure 82 mm[Hg] Dr. Georgiana Mcfadden Work Phone: [facility] Work Phone: 06-13-2021 07:04-0500 Heart rate 71 /min Dr. Georgiana Mcfadden Work Phone: [facility] Work Phone: 06-13-2021 07:04-0500 Respiratory rate 18 /min Dr. Georgiana Mcfadden Work Phone: [facility] Work Phone: 06-13-2021 07:04-0500 SaO2% (BldA) [Mass fraction] 98 % Dr. Georgiana Mcfadden Work Phone: [facility] Work Phone: 06-13-2021 07:04-0500 Systolic blood pressure 131 mm[Hg] Dr. Georgiana Mcfadden Work Phone: [facility] Work Phone: 05-31-2021 08:40-0500 Body temperature 96 [degF] Dr. Georgiana Mcfadden Work Phone: [facility] Work Phone: 05-31-2021 08:40-0500 Diastolic blood pressure 71 mm[Hg] Dr. Georgiana Mcfadden Work Phone: [facility] Work Phone: 05-31-2021 08:40-0500 Heart rate 69 /min Dr. Georgiana Mcfadden Work Phone: [facility] Work Phone: 05-31-2021 08:40-0500 Respiratory rate 16 /min Dr. Georgiana Mcfadden Work Phone: [facility] Work Phone: 05-31-2021 08:40-0500 SaO2% (BldA) [Mass fraction] 94 % Dr. Georgiana Mcfadden Work Phone: [facility] Work Phone: 05-31-2021 08:40-0500 Systolic blood pressure 104 mm[Hg] Dr. Georgiana Mcfadden Work Phone: [facility] Work Phone: 05-31-2021 06:59-0500 Body mass index (BMI) [Ratio] 30.2 kg/m2 Dr. Georgiana Mcfadden Work Phone: [facility] Work Phone: 05-31-2021 06:59-0500 Body weight [address] Georgiana Mcfadden Work Phone: [facility] Work Phone: 05-20-2021 11:26-0500 Body mass index (BMI) [Ratio] 30.8 kg/m2 Dr. Georgiana Mcfadden Work Phone: [facility] Work Phone: 05-20-2021 11:26-0500 Body temperature 97.7 [degF] Dr. Georgiana Mcfadden Work Phone: [facility] Work Phone: 05-20-2021 11:26-0500 Body weight 103.[address] Georgiana Mcfadden Work Phone: [facility] Work Phone: 05-20-2021 11:26-0500 Diastolic blood pressure 81 mm[Hg] Dr. Georgiana Mcfadden Work Phone: [facility] Work Phone: 05-20-2021 11:26-0500 Heart rate 83 /min Dr. Georgiana Mcfadden Work Phone: [facility] Work Phone: 05-20-2021 11:26-0500 Respiratory rate 18 /min Dr. Georgiana Mcfadden Work Phone: [facility] Work Phone: 05-20-2021 11:26-0500 SaO2% (BldA) [Mass fraction] 97 % Dr. Georgiana Mcfadden Work Phone: [facility] Work Phone: 05-20-2021 11:26-0500 Systolic blood pressure 138 mm[Hg] Dr. Georgiana Mcfadden Work Phone: 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 [facility] [place] [facility] Work Phone: NEGATED: Highlighted [id number] 12:32-0400 Body mass index (BMI) [Ratio] 30.93 kg/m2 Paulo Cuadra PUBLIC TR[employer]IT TROLLEY DRIVER [facility] [place] [facility] Work Phone: NEGATED: Highlighted [id number] 12:32-0400 Body weight 100.25 kg 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 Start: 11-29-2024 End: 11-29-[address] Christiano Yuan MD -[facility] Work Phone: Start: 11-29-2024 End: 11-29-[address] Georgiana Mcfadden MD Work Phone: -[facility] Start: 11-28-[address] Georgiana Littlejohn MD -Occupational Therapy Work Phone: Start: 07-05-2024 End: 07-05-2024 ambulatory Georgiana Mcfadden Facility:[facility] Start: 04-22-2024 End: 04-22-2024 ambulatory Georgiana Fartun Facility:[facility] [place] [place] Start: 03-14-2024 End: 03-14-2024 ambulatory [facility] Fartun Facility:[facility] Start: 01-25-2024 ambulatory Georgiana Mcfadden Facilit y:[facility] Start: 01-25-2024 End: 01-25-2024 ambulatory Georgiana Mcfadden Facility:[facility] Start: 01-07-2024 End: 01-07-2024 ambulatory [facility] Fartun Facility:[facility] Start: 09-04-2023 End: 09-04-[address] Georgiana Mcfadden Work Phone: [facility] Work Phone: Start: 09-04-2023 End: 09-04-[address] Georgiana Mcfadden Work Phone: [facility] Work Phone: Start: 06-29-2023 End: 06-29-[address] Georgiana Mcfadden Work Phone: [facility] Work Phone: Start: 06-26-2023 End: 06-26-[address] Georgiana Mcfadden Work Phone: [facility] Work Phone: Start: 06-26-2023 End: 06-26-[address] Georgiana Mcfadden Work Phone: [facility] Start: 06-03-2023 End: 06-03-[address] Georgiana Mcfadden Work Phone: [facility] Work Phone: Start: 06-03-2023 End: 06-03-[address] Georgiana Mcfadden Work Phone: [facility]Laboratory Work Phone: Start: 05-29-2023 End: 05-29-[address] Georgiana Mcfadden Work Phone: [facility] Work Phone: Start: 05-29-2023 End: 05-29-[address] Georgiana Mcfadden Work Phone: [facility] Work Phone: Start: 03-27-2023 End: 03-27-[address] Georgiana Mcfadden Work Phone: [facility] Work Phone: Start: 03-24-2023 End: 03-24-[address] Georgiana Mcfadden Work Phone: [facility] Work Phone: Start: 03-24-2023 End: 03-24-[address] Georgiana Mcfadden Work Phone: [facility] Work Phone: Start: 03-11-2023 End: 03-11-[address] Georgiana Mcfadden Work Phone: [facility] Work Phone: Start: 03-11-2023 End: 03-11-[address] Georgiana Mcfadden Work Phone: [facility] Work Phone: Start: 02-19-2023 End: 02-19-[address] Georgiana Mcfadden Work Phone: [facility] Work Phone: Start: 01-26-[address] [facility]er [facility] Work [facility]: Start: 12-11-2022 End: 12-11-[address] Georgiana Mcfadden Work Phone: [facility] Work Phone: Start: 12-11-2022 End: 12-11-[address] Georgiana Mcfadden Work Phone: [facility] Work Phone: Start: 03-24-2022 End: 03-24-[address] Georgiana Mcfadden Work Phone: [facility] Work Phone: Start: 03-24-2022 End: 03-24-[address] Georgiana Mcfadden Work Phone: [facility] Start: 02-10-2022 End: 02-10-[address] Georgiana Mcfadden Work Phone: [facility] Start: 10-23-2021 End: 10-23-[address] Georgiana Mcfadden Work Phone: [facility] Start: 10-22-2021 End: 10-22-[address] Georgiana Mcfadden Work Phone: [facility] Start: 09-19-2021 End: 09-19-[address] Georgiana Mcfadden Work Phone: [facility] [place] Start: 09-04-2021 End: 09-04-[address] Georgiana Mcfadden Work Phone: [facility] Start: 08-08-2021 End: 08-08-[address] Georgiana Mcfadden Work Phone: [facility] Start: 08-07-2021 End: 08-07-2021 Ot evaluation Georgiana Littlejohn MD Work Phone: [facility] Work Phone: Start: 07-30-2021 Non-patient / Non-visit Dr. Georgiana Mcfadden Work Phone: [facility] Start: 07-29-2021 End: 07-30-2021 Evaluation and management of inpatient Dr. Georgiana Mc[facility]add[facility] Start: 07-29-2021 Non-patient / Non-visit Dr. Georgiana Mcfadden Work Phone: [facility] Start: 07-22-2021 Non-patient / Non-visit Dr. Georgiana Mcfadden Work Phone: [facility] Start: 07-02-2021 End: 07-02-[address] Georgiana Mcfadden Work Phone: [facility] Start: 06-19-2021 End: 06-19-[address] Georgiana Mcfadden Work Phone: [facility] Start: 06-17-2021 End: 06-17-[address] Georgiana Mcfadden Work Phone: [facility] Start: 06-13-2021 Admission to [facility] Dr. Georgiana Mcfadden Work Phone: [facility] Start: 05-31-2021 Non-patient / Non-visit Dr. Georgiana Mcfadden Work Phone: [facility] Start: 05-31-2021 End: 05-31-2021 Admission to same day surgery center Dr. Georgiana Mcfadden Work Phone: [facility] Start: 05-27-2021 End: 05-27-[address] Georgiana Mcfadden Work Phone: [facility] Start: 05-20-2021 End: 05-20-[address] Georgiana Mcfadden Work Phone: [facility] Start: 04-26-[address] Georgiana Mcfadden Work Phone: [facility] Start: 09-24-2020 End: 09-26-2020 Evaluation and management of inpatient Brad Gama MD Work Phone: [facility] Comment on above: S/P thoracotomy (Maria Elena paulo Dx) Start: 09-20-2020 End: 09-20-2020 Subsequent hospital visit by physician Brad Gama MD Work Phone: [facility] Pre-Admit Testing Comment on above: Pleural effusion Start: 07-10-2020 Patient encounter procedure SELF SELF Facility:[facility] Procedures Date Procedure Procedure Detail Performing Clinician Start: 09-04-2023 Plain chest X-ray Dr. Elena Mcfadden Work Phone: Start: 06-03-2023 Cl[address]ium difficil e detection Dr. Georgiana Mcfadden Work Phone: Start: 06-03-2023 Giardia Antigen (KIMI) D osito Mcfadden Work Phone: Start: 06-03-[address] Georgiana Mcfadden Work Phone: Start: 06-03-[address] Georgiana Mcfadden Work Phone: Start: 06-03-2023 Ova OR parasites identification Dr. Georgiana Mcfadden Work Phone: Start: 03-24-2023 Bilateral mammography Jomar Mcfadden Work Phone: Start: 03-24-[address] Georgiana Mcfadden Work Phone: Start: 03-11-[address] Georgiana rader Work Phone: Start: 08-07-2021 End: 08-07-2021 BP scrn no perf at interval Georgiana Littlejohn MD Work Phone: Start: 08-07-2021 End: 08-07-2021 Calc BMI abv up gerard f/u Georgiana milton MD Work Phone: Start: 08-07-2021 End: 08-07-2021 Current tobacco non-user cad cap copd pv dm Georgiana Littlejohn MD Work Phone: Start: 08-07-2021 End: 08-07-2021 Docrev cur meds by [facility] clin Georgiana Littlejohn MD Work Phone: Start: 08-07-2021 End: 08-07-2021 No doc of pain Georgiana Littlejohn MD Work Phone: Start: 08-07-2021 End: 08-07-2021 Patient encounter procedure Georgiana Littlejohn MD Work Phone: Start: 07-29-2021 Sonal fundoplication Jomar Mcfadden Work Phone: Start: 06-19-[address] Georgiana Mcfadden Work Phone: Start: 06-13-[address] Raven Mcfadden Work Phone: Start: 05-27-[address] Georgiana rader Work Phone: Start: 04-26-2021 MRI of pelvis with contrast Dr. Georgiana Mcfadden Work Phone: Start: 09-26-2020 Radiologic exam ches [...] Brad Moralez MD Work Phone: Start: 09-24-2020 H/O: surgery History of thoracotomy Dr. 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 Start: 09-24-2020 Hemoglobin glycosyla karan a1c Margarethchetna Lou [employer] - [employer] Work Phone: Start: 09-20-2020 Antibody screen Brad washington MD Work Phone: Start: 09-20-2020 Radiologic exam ches t 2 views Shashank Umanzor [employer] - DELINEATOR Work Phone: Start: 09-20-2020 MRSA BY PCR Shashank Palafox on [employer] - [employer] Work Phone: Start: 09-20-2020 Blood typing serolog ic abo Shashank Umanzor [employer]TAIN - DELINEATOR Work Phone: Start: 09-20-2020 Comprehensive metabo lic panel Shashank Umanzor [employer] CAPTAIN - DELINEATOR Work Phone: Start: 09-20-2020 Ecg routine ecg w/le ast 12 lds w/i&r Shashank Umanzor [employer] CAPTAIN - DELINEATOR Work Phone: NEGATED: Highlighted rowStart: 08-07-2021 End: 08-07-2021 Documentation of current medications Paulo Cuadra [employer] Plan of Treatment Date Care Activity Detail Author Start: 10-25-2025 DTaP/Tdap/Td vaccine (2 - Td) DTaP/Tdap/Td vaccine (2 - Td) [facility] Work Phone: Start: 11-29-2024 Evaluation of diagno stic study results [facility] Start: 06-03-2023 Elastase.pancreatic [Presence] in Stool [facility] Start: 06-03-2023 Protein measurement [facility] Start: 06-03-2023 [facility] Start: 05-29-2023 Celiac disease screen W [facility] Start: 05-29-2023 IgG subclass panel [Mass/volume] - Serum [facility] Start: 05-29-2023 Immunoglobulin [address] [facility] Start: 09-26-2021 Creatinine measurement Creatinine mo nitoring [facility] Work Phone: Start: 09-26-2021 Potassium monitoring Potassium monit oring [facility] Work Phone: Start: 09-24-2021 Hemoglobin A1c measurement A1C test (Diabetic or Prediabetic) [facility] Work Phone: Start: 09-20-2021 Creatinine measurement Creatinine mo nitoring [facility] Work Phone: Start: 09-20-2021 Hemoglobin A1c measurement A1C test (Diabetic or Prediabetic) [facility] Work Phone: Start: 09-20-2021 Potassium monitoring Potassium monit oring [facility] Work Phone: Start: 08-07-2021 End: 08-07-2021 Patient encounter procedure Appointment [facility] Work Phone: Start: 08-07-2021 End: 08-07-2021 Radex hand minimum 3 views [facility] Work Phone: Start: 05-31-2021 Colsc flx w/rmvl of tumor polyp lesion snare tq COLONOSCOPY W/LESION REMOVAL [facility] Work Phone: Start: 05-31-2021 Egd transoral biopsy single/multiple EGD BIOPSY SINGLE/MULTIPLE [facility] Work Phone: Start: 09-24-2020 Subsequent hospital visit by physician 09/24/2020 Hospital Encounter General Surgery Brad Gama MD [address] [place] [address] [facility] General Surgery Start: 09-20-2020 COVID-19 Vaccine (2 - Moderna 2-dose series) COVID-19 Vaccine (2 - Moderna 2-dose series) [employer] Work Phone: Start: 09-13-2020 Annual Wellness Visi t (AWV) Annual Wellness Visit (AWV) [facility] Work Phone: Start: 2015 Pneumococcal 65+ yea rs Vaccine (2 of 2 - PPSV23) Pneumococcal 65+ years Vaccine (2 of 2 - PPSV23) [facility] Work Phone: Start: 01-10-2000 Screening for malign ant neoplasm of colon Colon cancer screen colonoscopy [facility] Work Phone: Start: 01-10-1960 Lipid panel Lipid screen [facility] Work Phone: Start: 1950 Hepatitis C screening Hepatitis C sc reen [facility] Work Phone: Acapella Acapella Respira tory Care Routine Every 2hr while awake until discontinued starting 09/24/2020 [facility] Work Phone: Comment on above: Every 2hr while awak e until discontinued starting 09/24/2020 Basic Metabolic Pane l w/ Reflex to MG Basic Metabolic Panel w/ Reflex to MG Lab Routine Daily until discontinued starting 09/26/2020, 1 completed [facility] Work Phone: Comment on above: Daily until disconti nued starting 09/26/2020, 1 completed CBC panel - Blood by Automated count CBC Lab Routine Daily until discontinued starting 09/26/2020, 1 completed [employer] Work Phone: Comment on above: Daily until disconti nued starting 09/26/2020, 1 completed Clostridioides diffi cile DNA [Presence] in Unspecified specimen by PADMINI with probe detection [facility] CPAP CPAP Respiratory Care Routine Every 4hr until discontinued starting 09/24/2020 [facility] Work Phone: Comment on above: Every 4hr until disc ontinued starting 09/24/2020 EKG 12 lead EKG 12 lead ECG Routine Pleural effusion 09/20/2020 2:51 PM EDT [facility] Work Phone: Elastase.pancreatic [Presence] in Stool [facility] Gastrointestinal pat hogens panel - Stool by PADMINI with probe detection [facility] Giardia lamblia Ag [Presence] in Stool by Immunoassay [facility] Giardia lamblia anti gen assay [facility] IgA [Mass/volume] in Serum or Plasma [facility] IgE [Units/volume] i n Serum or Plasma [facility] IgG [Mass/volume] in Serum or Plasma [facility] IgG subclass 1 [Mass/volume] in Serum [facility] IgG subclass 2 [Mass/volume] in Serum [facility] IgG subclass 3 [Mass/volume] in Serum [facility] IgG subclass 4 [Mass/volume] in Serum [facility] IgM [Mass/volume] in Serum or Plasma [facility] Lactoferrin [Presenc e] in Stool by Immunoassay [facility] Measurement of immunoglobulin A in serum specimen [facility] Nebulizer therapy [facility]N Treatment Respiratory Care Routine Every 4hr while awake until discontinued starting 09/24/2020 [facility] Work Phone: Comment on above: Every 4hr while awak e until discontinued starting 09/24/2020 Ova and parasites identified in Unspecified specimen by Light microscopy [facility] Ova and parasites identified in Unspecified specimen by Light microscopy [facility] Oxygen therapy [[facility] Data Set] Initiate Oxygen Therapy Protocol Respiratory Care Routine Daily until discontinued starting 09/24/2020 [facility] Work Phone: Comment on above: Daily until disconti nued starting 09/24/2020 Patient referral [facility] Work Phone: PREPARE RBC (CROSSMA TCH), 2 Units PREPARE RBC (CROSSMATCH), 2 Units Blood Bank Routine Pleural effusion 09/20/2020 3:21 PM EDT [facility] Work Phone: Protein measurement [facility] Spirometry panel Incentive aleida metry Respiratory Care Routine Every 2hr while awake until discontinued starting 09/24/2020 [facility] Work Phone: Comment on above: Every 2hr while awak e until discontinued starting 09/24/2020 Tissue transglutamin ase IgA Ab [Units/volume] in Serum [facility] End: 10-01-2020 XR CHEST PORTABLE XR CHEST PORTABLE Imaging Routine Daily for 7 Occurrences starting 09/25/2020 until 10/01/2020, 2 completed [facility] Work Phone: Comment on above: Daily for 7 Occurren messi starting 09/25/2020 until 10/01/2020, 2 completed Immunizations Immunization Date Immunization Notes Care Provider [facility] 03-24-2021 Covid (Moderna) Dr. Georgiana quezada Work Phone: [facility] 01-31-2020 influenza, injectabl e, quadrivalent, preservative free Dr. Georgiana Mcfadden Work Phone: [facility] 01-31-2020 influenza, seasonal, injectable Dr. Georgiana Mcfadden Work Phone: [facility] Work Phone: Payers Date Payer Category Payer Self-pay [id number] 2019 Medicare [id number] 2014 Unknown [id number] 1950 Unknown [id number] [id number]. [id number] Unknown [id number] 2.16.8 [id number] Unknown [id number] 2.16.8 [id number] Unknown [id number] 2.16.8 [id number] Unknown [id number] 2.16.8 [id number] Unknown [id number] 2.16.8 [id number] Unknown [id number] 2.16.8 [id number] Unknown [id number] 2.16.8 [id number] Unknown [id number] 2.16.8 [id number] Unknown [id number] 2.16.8 [id number] Social History Date Type Detail Facility Start: 09-20-2020 End: 06-29-2023 Tobacco smoking status [facility] Former smoker [facility] History of tobacco use Cigarette Smoker S [facility] Start: 09-20-2020 End: 09-25-2020 Cigarettes smoked current (pack per day) - Reported [facility] Work Phone: Start: 09-20-2020 End: 09-25-2020 Tobacco use and exposure Never used [facility] Start: 09-20-2020 End: 09-25-2020 Alcohol intake Current drinker of alcohol (finding) [employer] Work Phone: Start: 09-20-2020 Tobacco Comment 1PPD TIMES 20 YRS QUIT 1979 [facility] Work Phone: Start: 09-13-2020 Alcohol Comment 1 glass of win e per evening [employer] Work Phone: Sex Assigned At Not on file [employer] Work Phone: Exposure to SARS-CoV -2 (event) Not sure [facility] Start: 08-08-2021 End: 06-29-2023 Assertion Unknown if ever smoked [facility] Work Phone: Start: 04-03-2020 Occasional [facility] Start: 04-03-2020 None [facility] Start: 04-02-2020 Spouse/ Signif icant Other [facility] Start: 04-03-2020 Non-smoker [facility] Start: 1950 Sex Assigned At Male W [facility] Medical Equipment Procedure Code Equipment Code Equipment Origin al Text Equipment Identifier Dates Sonal fundoplication CLIP,HEMOL OCK DARRELL ROBERTS FDA Start: 07-29-2021 Sonal fundoplication PLEDGET,SO FT 8x8x1.6mm FDA Start: 07-29-2021 Sonal fundoplication SEALANT,FL OSEAL HEMOSTATIC 5ML FDA Start: 07-29-2021 Sonal fundoplication SEALANT,FL OSEAL HEMOSTATIC 5ML FDA Start: 07-29-2021 Sonal fundoplication Ligation c lip, synthetic polymer, non-bioabsorbable [id number] FDA Start: 07-29-2021 Sonal fundoplication DRESSING,F IBRILLAR 1X2 1960 FDA Start: 07-29-2021 Sonal fundoplication DRESSING,F IBRILLAR 1X2 1960 FDA Start: 07-29-2021 Sonal fundoplication DRESSING,F IBRILLAR 1X2 1960 FDA Start: 07-29-2021 Sonal fundoplication DRESSING,F IBRILLAR 1X2 1960 FDA Start: 07-29-2021 Sonal fundoplication DRESSING,F IBRILLAR 1X2 1960 FDA Start: 07-29-2021 Sonal fundoplication DRESSING,F IBRILLAR 1X2 1960 FDA Start: 07-29-2021 Sonal fundoplication PLEDGET,SO FT 8x8x1.6mm FDA Start: 07-29-2021 Sonal fundoplication PLEDGET,SO FT 8x8x1.6mm FDA Start: 07-29-2021 Sonal fundoplication CLIP,HEMOL OCK DARRELL ROBERTS FDA Start: 07-29-2021 Sonal fundoplication PLEDGET,SO FT 8x8x1.6mm FDA Start: 07-29-2021 Sonal fundoplication SEALANT,FL OSEAL HEMOSTATIC 5ML FDA Start: 07-29-2021 Sonal fundoplication SEALANT,FL OSEAL HEMOSTATIC 5ML FDA Start: 07-29-2021 Sonal fundoplication DRESSING,F IBRILLAR 1X2 1960 FDA Start: 07-29-2021 Sonal fundoplication DRESSING,F IBRILLAR 1X2 1960 FDA Start: 07-29-2021 Sonal fundoplication DRESSING,F IBRILLAR 1X2 1960 FDA Start: 07-29-2021 Soanl fundoplication DRESSING,F IBRILLAR 1X2 1960 FDA Start: 07-29-2021 Sonal fundoplication DRESSING,F IBRILLAR 1X2 1960 FDA Start: 07-29-2021 Sonal fundoplication DRESSING,F IBRILLAR 1X2 1960 FDA Start: 07-29-2021 Sonal fundoplication PLEDGET,SO FT 8x8x1.6mm FDA Start: 07-29-2021 Sonal fundoplication PLEDGET,SO FT 8x8x1.6mm FDA Start: 07-29-2021 Sonal fundoplication CLIP,HEMOL OCK LG WECK FDA Start: 07-29-2021 Sonal fundoplication PLEDGET,SO FT 8x8x1.6mm FDA Start: 07-29-2021 Sonal fundoplication SEALANT,FL OSEAL HEMOSTATIC 5ML FDA Start: 07-29-2021 Sonal fundoplication SEALANT,FL OSEAL HEMOSTATIC 5ML FDA Start: 07-29-2021 Sonal fundoplication DRESSING,F IBRILLAR 1X2 1960 FDA Start: 07-29-2021 Sonal fundoplication DRESSING,F IBRILLAR 1X2 1960 FDA Start: 07-29-2021 Sonal fundoplication DRESSING,F IBRILLAR 1X2 1960 FDA Start: 07-29-2021 Sonal fundoplication DRESSING,F IBRILLAR 1X2 1960 FDA Start: 07-29-2021 Sonal fundoplication DRESSING,F IBRILLAR 1X2 1960 FDA Start: 07-29-2021 Sonal fundoplication DRESSING,F IBRILLAR 1X2 1960 FDA Start: 07-29-2021 Sonal fundoplication PLEDGET,SO FT 8x8x1.6mm FDA Start: 07-29-2021 Sonal fundoplication PLEDGET,SO FT 8x8x1.6mm FDA Start: 07-29-2021 Sonal fundoplication CLIP,HEMOL OCK LG ALEJANDRA FDA Start: 07-29-2021 Sonal fundoplication PLEDGET,SO FT 8x8x1.6mm FDA Start: 07-29-2021 Sonal fundoplication SEALANT,FL OSEAL HEMOSTATIC 5ML FDA Start: 07-29-2021 Sonal fundoplication SEALANT,FL OSEAL HEMOSTATIC 5ML FDA Start: 07-29-2021 Sonal fundoplication DRESSING,F IBRILLAR 1X2 1960 FDA Start: 07-29-2021 Sonal fundoplication DRESSING,F IBRILLAR 1X1960 FDA Start: 07-29-2021 Sonal fundoplication DRESSING,F IBRILLAR 1X2 1960 FDA Start: 07-29-2021 Sonal fundoplication DRESSING,F IBRILLAR 1X1960 FDA Start: 07-29-2021 Sonal fundoplication DRESSING,F IBRILLAR 1X1960 FDA Start: 07-29-2021 Sonal fundoplication DRESSING,F IBRILLAR 1960 FDA Start: 07-29-2021 Sonal fundoplication PLEDGET,SO FT 8x8x1.6mm FDA Start: 07-29-2021 Sonal fundoplication PLEDGET,SO FT 8x8x1.6mm FDA Start: 07-29-2021 Sonal fundoplication CLIP,HEMOL OCK DARRELL ROBERTS FDA Start: 07-29-2021 Sonal fundoplication PLEDGET,SO FT 8x8x1.6mm FDA Start: 07-29-2021 Sonal fundoplication SEALANT,FL OSEAL HEMOSTATIC 5ML FDA Start: 07-29-2021 Sonal fundoplication SEALANT,FL OSEAL HEMOSTATIC 5ML FDA Start: 07-29-2021 Sonal fundoplication DRESSING,F IBRILLAR 1X2 1960 FDA Start: 07-29-2021 Sonal fundoplication DRESSING,F IBRILLAR 1X2 1960 FDA Start: 07-29-2021 Sonal fundoplication DRESSING,F IBRILLAR 1X1960 FDA Start: 07-29-2021 Sonal fundoplication DRESSING,F IBRILLAR 1X2 1960 FDA Start: 07-29-2021 Sonal fundoplication DRESSING,F IBRILLAR 1X1960 FDA Start: 07-29-2021 Sonal fundoplication DRESSING,F IBRILLAR 1X2 1960 FDA Start: 07-29-2021 Sonal fundoplication PLEDGET,SO FT 8x8x1.6mm FDA Start: 07-29-2021 Sonal fundoplication PLEDGET,SO FT 8x8x1.6mm FDA Start: 07-29-2021 Sonal fundoplication CLIP,HEMOL OCK LG WE FDA Start: 07-29-2021 Sonal fundoplication PLEDGET,SO FT 8x8x1.6mm FDA Start: 07-29-2021 Sonal fundoplication SEALANT,FL OSEAL HEMOSTATIC 5ML FDA Start: 07-29-2021 Sonal fundoplication SEALANT,FL OSEAL HEMOSTATIC 5ML FDA Start: 07-29-2021 Sonal fundoplication DRESSING,F IBRILLAR 1X2 1960 FDA Start: 07-29-2021 Sonal fundoplication DRESSING,F IBRILLAR 1X1960 FDA Start: 07-29-2021 Sonal fundoplication DRESSING,F IBRILLAR 1X2 1960 FDA Start: 07-29-2021 Sonal fundoplication DRESSING,F IBRILLAR 1X2 1960 FDA Start: 07-29-2021 Sonal fundoplication DRESSING,F IBRILLAR 1X2 1960 FDA Start: 07-29-2021 Sonal fundoplication DRESSING,F IBRILLAR 1X2 1960 FDA Start: 07-29-2021 Sonal fundoplication PLEDGET,SO FT 8x8x1.6mm FDA Start: 07-29-2021 Sonal fundoplication PLEDGET,SO FT 8x8x1.6mm FDA Start: 07-29-2021 Sonal fundoplication CLIP,HEMOL OCK LG [facility] FDA Start: 07-29-2021 Sonal fundoplication PLEDGET,SO FT 8x8x1.6mm FDA Start: 07-29-2021 Sonal fundoplication SEALANT,FL OSEAL HEMOSTATIC 5ML FDA Start: 07-29-2021 Sonal fundoplication SEALANT,FL OSEAL HEMOSTATIC 5ML FDA Start: 07-29-2021 Sonal fundoplication DRESSING,F IBRILLAR 1X2 1960 FDA Start: 07-29-2021 Sonal fundoplication DRESSING,F IBRILLAR 1X2 1960 FDA Start: 07-29-2021 Sonal fundoplication DRESSING,F IBRILLAR 1X2 1960 FDA Start: 07-29-2021 Sonal fundoplication DRESSING,F IBRILLAR 1X2 1960 FDA Start: 07-29-2021 Sonal fundoplication DRESSING,F IBRILLAR 1X2 1960 FDA Start: 07-29-2021 Sonal fundoplication DRESSING,F IBRILLAR 1X2 1960 FDA Start: 07-29-2021 Sonal fundoplication PLEDGET,SO FT 8x8x1.6mm FDA Start: 07-29-2021 Sonal fundoplication PLEDGET,SO FT 8x8x1.6mm FDA Start: 07-29-2021 Sonal fundoplication CLIP,HEMOL OCK LG WECK FDA Start: 07-29-2021 Sonal fundoplication PLEDGET,SO FT 8x8x1.6mm FDA Start: 07-29-2021 Sonal fundoplication SEALANT,FL OSEAL HEMOSTATIC 5ML FDA Start: 07-29-2021 Sonal fundoplication SEALANT,FL OSEAL HEMOSTATIC 5ML FDA Start: 07-29-2021 Sonal fundoplication DRESSING,F IBRILLAR 1X2 1960 FDA Start: 07-29-2021 Sonal fundoplication DRESSING,F IBRILLAR 1X2 1960 FDA Start: 07-29-2021 Sonal fundoplication DRESSING,F IBRILLAR 1X2 1960 FDA Start: 07-29-2021 Sonal fundoplication DRESSING,F IBRILLAR 1X2 1960 FDA Start: 07-29-2021 Sonal fundoplication DRESSING,F IBRILLAR 1X2 1960 FDA Start: 07-29-2021 Sonal fundoplication DRESSING,F IBRILLAR 1X2 1960 FDA Start: 07-29-2021 Sonal fundoplication PLEDGET,SO FT 8x8x1.6mm FDA Start: 07-29-2021 Sonal fundoplication PLEDGET,SO FT 8x8x1.6mm FDA Start: 07-29-2021 Sonal fundoplication CLIP,HEMOL OCK LG WECK FDA Start: 07-29-2021 Sonal fundoplication PLEDGET,SO FT 8x8x1.6mm FDA Start: 07-29-2021 Sonal fundoplication SEALANT,FL OSEAL HEMOSTATIC 5ML FDA Start: 07-29-2021 Sonal fundoplication SEALANT,FL OSEAL HEMOSTATIC 5ML FDA Start: 07-29-2021 Sonal fundoplication DRESSING,F IBRILLAR 1X2 1960 FDA Start: 07-29-2021 Sonal fundoplication DRESSING,F IBRILLAR 1X2 1960 FDA Start: 07-29-2021 Sonal fundoplication DRESSING,F IBRILLAR 1X2 1960 FDA Start: 07-29-2021 Sonal fundoplication DRESSING,F IBRILLAR 1X2 1960 FDA Start: 07-29-2021 Sonal fundoplication DRESSING,F IBRILLAR 1X2 1960 FDA Start: 07-29-2021 Sonal fundoplication DRESSING,F IBRILLAR 1X2 1960 FDA Start: 07-29-2021 Sonal fundoplication PLEDGET,SO FT 8x8x1.6mm FDA Start: 07-29-2021 Sonal fundoplication PLEDGET,SO FT 8x8x1.6mm FDA Start: 07-29-2021 Sonal fundoplication CLIP,HEMOL OCK LG WECK FDA Start: 07-29-2021 Sonal fundoplication PLEDGET,SO FT 8x8x1.6mm FDA Start: 07-29-2021 Sonal fundoplication SEALANT,FL OSEAL HEMOSTATIC 5ML FDA Start: 07-29-2021 Sonal fundoplication SEALANT,FL OSEAL HEMOSTATIC 5ML FDA Start: 07-29-2021 Sonal fundoplication DRESSING,F IBRILLAR 1X2 1960 FDA Start: 07-29-2021 Sonal fundoplication DRESSING,F IBRILLAR 1X2 1960 FDA Start: 07-29-2021 Sonal fundoplication DRESSING,F IBRILLAR 1X2 1960 FDA Start: 07-29-2021 Sonal fundoplication DRESSING,F IBRILLAR 1X2 1960 FDA Start: 07-29-2021 Sonal fundoplication DRESSING,F IBRILLAR 1X2 1960 FDA Start: 07-29-2021 Sonal fundoplication DRESSING,F IBRILLAR 1X2 1960 FDA Start: 07-29-2021 Sonal fundoplication PLEDGET,SO FT 8x8x1.6mm FDA Start: 07-29-2021 Sonal fundoplication PLEDGET,SO FT 8x8x1.6mm FDA Start: 07-29-2021 Sonal fundoplication CLIP,HEMOL OCK LG WECK FDA Start: 07-29-2021 Sonal fundoplication PLEDGET,SO FT 8x8x1.6mm FDA Start: 07-29-2021 Sonal fundoplication SEALANT,FL OSEAL HEMOSTATIC 5ML FDA Start: 07-29-2021 Sonal fundoplication SEALANT,FL OSEAL HEMOSTATIC 5ML FDA Start: 07-29-2021 Sonal fundoplication DRESSING,F IBRILLAR 1X1960 FDA Start: 07-29-2021 Sonal fundoplication DRESSING,F IBRILLAR 1960 FDA Start: 07-29-2021 Sonal fundoplication DRESSING,F IBRILLAR 1X1960 FDA Start: 07-29-2021 Sonal fundoplication DRESSING,F IBRILLAR 1960 FDA Start: 07-29-2021 Sonal fundoplication DRESSING,F IBRILLAR 1960 FDA Start: 07-29-2021 Sonal fundoplication DRESSING,F IBRILLAR 1960 FDA Start: 07-29-2021 Sonal fundoplication PLEDGET,SO FT 8x8x1.6mm FDA Start: 07-29-2021 Sonal fundoplication PLEDGET,SO FT 8x8x1.6mm FDA Start: 07-29-2021 Sonal fundoplication CLIP,HEMOL OCK LG ABDI FDA Start: 07-29-2021 Sonal fundoplication PLEDGET,SO FT 8x8x1.6mm FDA Start: 07-29-2021 Sonal fundoplication SEALANT,FL OSEAL HEMOSTATIC 5ML FDA Start: 07-29-2021 Sonal fundoplication SEALANT,FL OSEAL HEMOSTATIC 5ML FDA Start: 07-29-2021 Sonal fundoplication DRESSING,F IBRILLAR 1X1960 FDA Start: 07-29-2021 Sonal fundoplication DRESSING,F IBRILLAR 1X1960 FDA Start: 07-29-2021 Sonal fundoplication DRESSING,F IBRILLAR 1X1960 FDA Start: 07-29-2021 Sonal fundoplication DRESSING,F IBRILLAR 1X1960 FDA Start: 07-29-2021 Sonal fundoplication DRESSING,F IBRILLAR 1X2 1 FDA Start: 07-29-2021 Sonal fundoplication DRESSING,F IBRILLAR 1X2 1 FDA Start: 07-29-2021 Sonal fundoplication PLEDGET,SO FT 8x8x1.6mm FDA Start: 07-29-2021 Sonal fundoplication PLEDGET,SO FT 8x8x1.6mm FDA Start: 07-29-2021 Appendectomy, laparoscopic 45mm Standard Reload FDA Start: 04-02-2020 Appendectomy, laparoscopic 45mm Standard Reload FDA Start: 04-02-2020 Appendectomy, laparoscopic 45mm Standard Reload FDA Start: 04-02-2020 Appendectomy, laparoscopic 45mm Standard Reload FDA Start: 04-02-2020 Appendectomy, laparoscopic 45mm Standard Reload FDA Start: 04-02-2020 Appendectomy, laparoscopic 45mm Standard Reload FDA Start: 04-02-2020 Appendectomy, laparoscopic 45mm Standard Reload FDA Start: 04-02-2020 Appendectomy, laparoscopic 45mm Standard Reload FDA Start: 04-02-2020 Appendectomy, laparoscopic 45mm Standard Reload FDA Start: 04-02-2020 Appendectomy, laparoscopic 45mm Standard Reload FDA Start: 04-02-2020 Appendectomy, laparoscopic 45mm Standard Reload FDA Start: 04-02-2020 Appendectomy, laparoscopic 45mm Standard Reload FDA Start: 04-02-2020 Appendectomy, laparoscopic 45mm Standard Reload FDA Start: 04-02-2020 Appendectomy, laparoscopic 45mm Standard Reload FDA Start: 04-02-2020 Appendectomy, laparoscopic 45mm Standard Reload FDA Start: 04-02-2020 Appendectomy, laparoscopic 45mm Standard Reload FDA Start: 04-02-2020 Appendectomy, laparoscopic 45mm Standard Reload FDA Start: 04-02-2020 Appendectomy, laparoscopic 45mm Standard Reload FDA Start: 04-02-2020 Appendectomy, laparoscopic 45mm Standard Reload FDA Start: 04-02-2020 Appendectomy, laparoscopic 45mm Standard Reload FDA Start: 04-02-2020 Appendectomy, laparoscopic 45mm Standard Reload FDA Start: 04-02-2020 Appendectomy, laparoscopic 45mm Standard Reload FDA Start: 04-02-2020 Appendectomy, laparoscopic 45mm Standard Reload FDA Start: 04-02-2020 Appendectomy, laparoscopic 45mm Standard Reload FDA Start: 04-02-2020 Functional Status Date Assessment Result Facility 07-30-2021 Functional status Ambulates [facility] Work Phone: Mental Status Date Assessment Result Facility 07-30-2021 Cognitive function Level Of Cons ciousness Awake;Alert;Appropriate;Follow s Commands [facility] Work Phone: 07-29-2021 Cognitive function Voice/Name [facility] Work Phone: 06-13-2021 Cognitive function Level Of Cons ciousness Awake;Alert;Appropriate;Follow s Commands [facility] Work Phone: 05-31-2021 Cognitive function Voice/Name [facility] Work Phone: Clinical Notes 09-20-2020 to 07-29-2021 Note Date & Type Note Facility 07-29-2021 Chief complaint+Reason for visit Narrative Reason for Visit Splenic hemorrhage History of repair of hiatal hernia [facility] Work Phone: 1(124) 427-804603-14-2022 Chief complaint+Reason for visit Narrative * Chief Complaint Discuss results LAP TOUPET PROCEDURE LAP TOUPET PROCEDURE LAP TOUPET PROCEDURE LAP TOUPET PROCEDURE [facility] 07/29 F/U [facility] 07/29 EORDER Reason for Visit Splenic hemorrhage History of repair of hiatal hernia [facility] Work Phone: [phone]) 723-549905-12-2021 Note Attestation signed by Brad Gama MD at 09/27/2020 12:44 PM I independently saw and evaluated the patient - including reviewing the labs, imaging studies, and available documentation. I agree with the findings and plan of care as documented by the resident/ARMATURE REWINDER/BRIEF WRITER/PA, unless otherwise noted. Please do not hesitate to contact me/us if you have any questions or concerns. Brad Gama MD FACS Discharge Summary: Cardiothoracic Surgery Suzette Palomino :1950 AGE: 70 y.o. ADMIT DATE: 09/24/2020 DISCHARGE DATE: 09/26/2020 DISCHARGING SURGEON: Brad Gama MD, Office Number: [phone] PRIMARY CARE PHYSICIAN: GEORGIANA FLOREZ VISIT STATUS: [...] DISCHARGE MEDICATIONS: Suzette Palomino Home Medication Instructions RE:[id number] Printed on:09/26/20 1182 Medication Information allopurinol (ZYLOPRIM) 300 MG tablet [...] us. SIGNED: Brad Moralez MD 09/26/2020, 5:39 [facility]05-12-2021 Hospital Discharge instructions* Instructions* Brad Moralez MD - 09/26/2020 Images from the original note were not included. [facility]: Cardiothoracic Surgery [address] [facility] (T): #[phone] (F): #[phone] After lung surgery, it is common to [...] avoid lifting anything that would make you strain.This may include a child, heavy grocery bags and milk containers, a heavy briefcase or backpack, cat litter or dog food bags, or a vacuum cabin cleaner. If your incision is in the [...] be off all narcotic and sedative medications priorto returning to driving. Ok to shower. Avoid [...] will be removed at your follow-up visit 10- 14 days with your provider. Also, sutures from drains/tubes will be removed at this time. Continue to follow discharge stretching exercises outlined below. Start each exercise slowly. Ease off the exercises if you start to have pain. Shoulder Stretch 1. molder pipe covering a doorway and place one arm against [...] medication prescribed on discharge from the hospital. Ifyou are prescribed oxycodone/acetaminophen (Percocet) or hydrocodone/acetaminophen ([place]/Vicodin) be cautious when taking additional tylenol. No [...] needed next to incision but not on yourincision. -Ice packs applied for 20 minutes then off for at least 20 minutes before reapplying. Call your Surgeon or return to the Emergency Room if you experience: -New or increased pain. -New or increased bleeding. -Nausea & vomiting. -Fever & chills. -Shortness of breath. -Chest pain. -Abdominal distention. [facility]: [phone]) 123-348405-12-2021 History of Present illness Narrative* Aletha Demarco RN - 09/26/2020 1:37 PM EDT Went over discharge instructions, med rec, and prescription with pt. Pt verbalized understanding. Extra drsgs given to pt. Transportation notified of discharge * Paris Connell - 09/26/2020 12:01 PM EDT Nutrition rescreen completed. Chart reviewed. Patient to be monitored and followed by the diet industrial cleaning technician. SHANTELLE Verduzco * Brad Moralez MD - 09/26/2020 6:10 AM EDT Department of Surgery - Progress Note PATIENT [...] solution 1 ampule, 1 ampule, Inhalation, Q4H IA polyethylene glycol (GLYCOLAX) packet 17 g, 17 [...] plan of care as documented by the resident/ARMATURE REWINDER/BRIEF WRITER/PA, unless otherwise noted. Please do not hesitate to contact me/us if you have any questions or concerns. Brad Gama MD FACS * Kerwin Crocker, PT - 09/25/2020 10:25 AM EDT Physical Therapy Facility/Department: [facility] Initial Assessment NAME: Suzette [...] Ambulation Assistance: Independent Transfer Assistance: Independent Active Solar Energy Systems Designer: Yes Cognition Cognition Overall Cognitive Status: WFL [...] AM-PAC Inpatient Mobility Raw Score : 24 (09/25/20 1025) AM-PAC Inpatient T-Scale Score : 61.14 (09/25/20 1025) Mobility Inpatient CMS 0-100% Score: 0 (09/25/201024) Mobility Inpatient CMS G-Code Modifier : CH (09/25/201024) Goals Patient Goals Patient goals : eval only Therapy Time Individual Concurrent Group Co-treatment Time In 1000 Time Out 1010 Minutes 10 Kerwin Crocker PT * rBad Moralez MD - 09/25/2020 6:22 AM EDT Department of Surgery - Progress Note PATIENT [...] solution 1 ampule, 1 ampule, Inhalation, Q4H IA polyethylene glycol (GLYCOLAX) packet 17 g, 17 g, Oral, Daily senna (SENOKOT) tablet 8.6 mg, 1 tablet, Oral, Nightly acetaminophen (TYLENOL) tablet 1,000 mg, 1,000 mg, Oral, TID naloxone (NARCAN) injection 0.4 mg, 0.4 mg, Intravenous, PRN HYDROmorphone (DILAUDID) 30 mg in sodium chloride 0.9 % 30 mL PULL THROUGH HOOKER, , Intravenous, Continuous HYDROmorphone (DILAUDID) injection 0.5 [...] medications per pain management team -Transfer to [address] Associated attestation - Brad Gama MD - 09/25/2020 12:11 PM EDT I independently saw and evaluated the patient - including reviewing the labs, imaging studies, and available documentation. I agree with the findings and plan of care as documented by the resident/ARMATURE REWINDER/BRIEF WRITER/PA, unless otherwise noted. Please do not hesitate to contact me/us if you have any questions or concerns. Brad Gama MD FACS * Shelley Contreras - 09/24/2020 4:46 PM EDT Belongings taken to pt admit room [id number] [place] documented in this [facility] Work Phone: [phone]) 356-350505-06-2021 History of Present illness Narrative* Margareth Lou APRN - CNP - 09/20/2020 2:00 PM EDT Received notification per lab- CBC and A1C clotted Ordered repeat DOS. documented in this [facility] Work Phone: [phone]) 190-870105-06-2021 Hospital Discharge instructions* Instructions* Eva Servin RN - 09/20/2020 Please bring your CPAP/BiPAP device, mask, and equipment with you on the day of surgery. Do not bring water for your machine, it will be provided.Shower with and antibacterial soap such as Dial or Safeguard. Please bring your [facility] Surgical Information folder on the day [...] You may take Tylenol (Acetaminophen) if needed forpain. No Motrin, Ibuprofen, or Advil 24 hours [...] have specific questions, please call your surgeon. * Attachments The following attachments cannot be sent through Care Everywhere. * VATS (Video-Assisted Thoracoscopic Surgery): Post-op ([place]) * Thoracoscopic Sympathectomy: Pre-op ([place]) * Thoracotomy: Post-op ([place]) * VATS (Video-Assisted Thoracoscopic Surgery): Pre-op ([place]) [facility] Work Phone: Evaluation note* Diagnosis Pleural effusion Unspecified pleural effusion documented in this encounter [facility] Work Phone: Evaluation note* Diagnosis S/P thoracotomy- Primary Other postprocedural status documented in this encounter [facility] Work Phone: Evaluation noteThere may be information available, but it has not been provided by the sender.[facility] Work Phone: Evaluation note* Diagnosis Onset Date Resolution Status Family history of colon cancer acute Splenic hemorrhage resolved [facility] Work Phone: Evaluation note* Diagnosis Onset Date Resolution Status Splenic hemorrhage resolved History of repair of hiatal hernia acute [facility] Work Phone: Evaluation note* Diagnosis Onset Date Resolution Status Small intestinal bacterial overgrowth (SIBO) acute [facility] Work Phone: Evaluation note* Diagnosis Onset Date Resolution Status Essential (primary) hypertension chronic Hyperlipidemia chronic 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 Work Phone: Evaluation note* Diagnosis Onset Date Resolution Status Admit Date Essential (primary) hypertension chr onic November 29, 2024 3:43pm [facility] Work Phone: Instructions* Instruction Description Start Date CompletedPatient advised to follow-up with Primary Care Physician for BMI management. [facility] Work Phone: Reason for referral (narrative)No reason for referral information availableKaiser Foundation Hospital Work Phone: Summary Purpose Family History No Family History Records Found Relationship Condition Age at Onset Recorded Date/T anthony sister Malignant neoplasm of colon Unknown father Cardiac disease Unknown Coronary artery disease Unknown Advance Directives No Advanced Directives Records FoundLatest Code Status on File Code Status Date Activated Date Inactivated Comments Full Code 09/24/2020 4:17 PM Full Code 09/24/2020 11:36 AM 09/24/2020 4:02 PM Advance Directive Response Recorded Date/ Time Living Will Yes July 29, 2021 3:27pm Power of Parts Puller Yes July 29 3:27pm Advance Directive Response Recorded Date/ Time Living Will Yes July 29, 2021 2:27pm Power of Parts Puller Yes July 29 2:27pm Reason for Referral Status Reason Specialty Diagnoses / Procedures Referre d By Contact Referred To Contact Open Cardiology Diagnoses Pleural effusion Procedures EKG 12 lead Shashank Umanzor, BELLHOP CAPTAIN - DELINEATOR [address] [facility] [address] [place] [address] Chief Complaint Chief Complaint Description Start Date bilateral hand pain Preliminary chief co mplaint data, not yet signed by the author as of Chief Complaint and Reason for Visit Chief Complaint ELEVATED PSA Gerd/Upper Scope EPIGASTRIC PAIN F/U C-Scope HIATAL HERNIA Discuss results LAP TOUPET PROCEDURE LAP TOUPET PROCEDURE LAP TOUPET PROCEDURE LAP TOUPET PROCEDURE [facility] 07/29 Reason for Visit Family history of co melo cancer Splenic hemorrhage Chief Complaint Consult EORDER FROM DR. MCFADDEN Reason for Visit Small intestinal khoa terial overgrowth (SIBO) Chief Complaint E ORDER 1 Y FU SCREENING SINUSITIS Reason for Visit Essential (primary) hypertension Hyperlipidemia Chief Complaint E ORDER 1 Y FU SCREENING SINUSITIS BREAST MASS IN MALE Reason for Visit Essential (primary) hypertension Hyperlipidemia Chief Complaint SINUSITIS BREAST MASS IN MALE BI-RADS 4 Follow Up Reason for Visit Breast mass, right Small intestinal bacterial overgrowth (SIBO) Excessive flatus Chief Complaint SINUSITIS BREAST MASS IN MALE BI-RADS 4 Follow Up 3M BREAST CHECK Reason for Visit Breast mass, right Small intestinal bacterial overgrowth (SIBO) Excessive flatus Abnormal ultrasound of breast Chief Complaint Follow Up 3M BREAST CHECK Reason for Visit Small intestinal khoa terial overgrowth (SIBO) Excessive flatus Abnormal ultrasound of breast Chief Complaint Admit Date R WRIST/HAND. PT HAS RX November 28, 2024 10:00am 2 Y FU November 29, 2024 3:43 pm Reason for Visit Admit Date Essential (primary) hypertension November 292024 3:43pm Additional Source Comments (unrecognized sect ion and content) No Status Records FoundNo Status Records FoundNo Status Records Found INFORMATION SOURCE (unrecogn ized section and content) DATE CREATED AUTHOR 07/12/2020 [facility] DATE CREATED AUTHOR AUTHOR'S ORGANIZ ATION 08/30/2021 [facility] DATE CREATED AUTHOR AUTHOR'S ORGANIZ ATION 12/24/2024 [facility] Ordered Prescriptions (unrec ognized section and content) [...] the author as of bilateral hand pain Goals (unrecognized section and content) Goals may be documented in a n alternate sectionGoals may be documented in an alternate sectionGoals may be documented in an alternate sectionGoals may be documented in an alternate sectionGoals may be documented in an alternate sectionGoals may be documented in an alternate sectionGoals may be documented in an alternate sectionGoals may be documented in an alternate sectionGoals may be documented in an alternate sectionGoals may be documented in an alternate sectionGoals may be documented in an alternate sectionGoals may be documented in an alternate section Care Teams (unrecognized sec tion and content) Team Status: Active Member Role Status Dates Dr. Georgiana Umanzor MD Family Provider Active Dr. Georgiana Mcfadden MD Primary Care Provider Active Team Status: Inactive Member Role Status Dates Dr. Georgiana Mcfadden MD Primary Care Provider, Referr ing Provider Active Dr. Christiano Yuan MD Attending Provider Active Team Status: Inactive Member Role Status Dates Dr. Georgiana Mcfadden MD Primary Care Provider, Attend ing Provider Active Team Status: Inactive Member Role Status Dates Dr. Georgiana Mcfadden MD Primary Care Provider Active Dr. Forrest Partida MD Attending Provider, Referring P gustavo Active Team Status: Active Member Role Status Dates Dr. Georgiana Mcfadden MD Primary Care Provider Active Self Referred Attending Provider Active Team Status: Inactive Member Role Status Dates Dr. Georgiana Mcfadden MD Primary Care Pr dennyer, Attending Provider, Referring Provider Active Dr. Edd Nur MD Other Provider Active Team Status: Inactive Member Role Status Dates Dr. Georgiana Mcfadden MD Primary Care Provider, Referr ing Provider Active Dr. Pantera Cervantes DO Attending Provider Active Team Status: Inactive Member Role Status Dates Dr. Georgiana Mcfadden MD Primary Care Provider, Referr ing Provider Active Dr. Skip Landry MD Attending Provider Active Team Status: Inactive Member Role Status Dates Dr. Georgiana Mcfadden MD Primary Care Provider Active Dr. Pantera Cervantes DO Attending Provider, Referring Provider Active Team Status: Inactive Member Role Status Dates Dr. Georgiana Mcfadden MD Primary Care Provider Active Dr. Skip Issa MD Attending Provider, Referrin g Provider Active Team Status: Active Member Role/Relationship Status Dates Dr. Georgiana Mcfadden MD Primary Care Provider Active Team Status: Active Member Role/Relationship Status Dates Dr. Georgiana Mcfadden MD Primary Care Provider Active Start: November 28, 2024 Dr. Georgiana Littlejohn MD Attending Provider Active Start: November 28, 2024 Dr. Georgiana Littlejohn MD Referring Provider Active Start: November 28, 2024 Team Status: Inactive Member Role/Relationship Status Dates Dr. Georgiana Mcfadden MD Primary Care Provider Active Start: November 29, 2024 End: November 29, 2024 Dr. Georgiana Mcfadden MD Referring Provider Active Start: November 29, 2024 End: November 29, 2024 Dr. Christiano Yuan MD Attending Provider Active S tart: November 29, 2024 End: November 29, 2024 FOR RECORDS PERTAINING TO PATIENTS WHO ARE [...] BE BASED ON THE PRIMARY CLINICAL RECORDS. [employer] provides no warranty or guarantee of the accuracy or completeness of information in this document.
--- OUTSIDE RECORDS SUMMARY | 2024-12-26 06:49 | XMS RPT_ITS | CCD ---
Author Organization [facility] CliniSyor Care Team Providers Care Administrative Program Specialist Name Role Phone SELF, SELF Referring Unavailable [...] Dr. Georgiana Mcfadden Referring Provider Asha FRYE, HIGHWAY ENGINEERING TEACHER-C Tati Mckenzie Attending Provider Dr. Georgiana Mcfadden [...] Eron KAYE, Dr. Georgiana Mendiola Referring Provider [phone] Fartun KAYE, Dr. Georgiana Camarena Referring Provider [...] Attending Unavailable Edd Nur Referring Unavailable Kwabena, [place] Attending Unavailable Christiano Yuan Referring Unavailable Georgiana [...] 09-24-2020 acetaminophen (TYLENOL) tabl et 1,000 mg [id number] actuat albuterol 0.09 mg/actuat metered dose [...] April 22, 2024 1:00am Multiple Vitamins-Minerals (THERAPEUTIC MULTIVITAMIN-COUPON AND BOND COLLECTION CLERK ALS) tablet (2 sources) take 1 tablet by mouth once daily Multiple Vitamins-Minerals (THERAPEUTIC MULTIVITAMIN-COUPON AND BOND COLLECTION CLERK ALS) tablet Take 1 tablet by mouth daily CENTRUM SILVER 0 Active Uvncnvzn-Xwa-Pd-Ly copen-Lutein (Centrum Silver Men) 300-600-300 mcg tablet (5 sources) Start: 12-12-2019 take 300-600 tablets by mouth once daily Akxkomgf-Yev-Td-Ly copen-Lutein (Centrum Silver Men) 300-600-300 mcg tablet Active 1 TABLET PO DAILY December 12, 2019 8:50am Start: 12-12-2019 take 300-600 tablets by mouth once daily Wcorbcyr-Jnq-Mt-Lycopen-Lutein (Centrum Silver Men) 300-600-300 mcg tablet Active 1 TABLET PO DAILY December 11, 2019 11:00pm Df-Rcf-Xocsl-O6-Kpbtxog-Edbt in (Centrum Silver Men) 300-600-300 mcg tablet (7 sources) Start: 12-12-2019 Bb-Itn-Jkhzu-J2-Plpslis-Izfv in (Centrum Silver Men) 300-600-300 mcg tablet Active 1 {tbl} PO DAILY December 12, 2019 12:00am Check with primary doctor Start: 12-12-2019 take 300-600 tablets by mouth once daily Mw-Ini-Zjiyg-D4-Zfiefft-Lnaibu (Centrum Silver Men) 300-600-300 mcg tablet Active 1 TABLET PO DAILY December 11, 2019 11:00pm Start: 12-12-2019 take 300-600 tablets by mouth once daily Yv-Dfg-Ubiej-T3-Ljmteod-Bnxlqb (Centrum Silver Men) 300-600-300 mcg tablet Active [...] Substituted for Omeprazole (PRILOSEC). polyethylene glycol 3350 14306 mg powder for oral solution (1 source) Osmotic Laxative Start: 09-24-2020 17 g, Oral, DAILY, First dose on Thu09/24/20 at 1645 sennosides, snf 8.6 mg oral tablet (1 source) Start: [...] by mouth as directed as needed sildenafil [id number] Terena Pena RN 3 ml sodium chloride [...] tablet by mouth once a day triamterene-hydrochlorothiazid [id number] Terena Pena RN levoFLOXacin 500 mg oral tablet (12 sources) Quinolone Antimicrobial [facility] t: En d: 20 take 1 tablet by mouth once daily Levofloxacin 500 MG tablet Discontinued 500 mg PO DAILY 10 21April 06, 2020 1:00am April 11, 2020 1:00am April 12, 2020 1:03am Geltgh-Krglkgco-Edjcnu e (Zenpep) 40,000-126,000- 168,000 unit capsule,delayed release(DR/EC) (1 source) [facility] t: 24 En d: 25 take [address] 00 capsules by mouth three times daily Xcxhnw-Yrhtekzb-Umcfnem (Zenpep) 40,000-126,000- 168,000 unit capsule,delayed release(DR/EC) Discontinued 1 NMA PO THREE TIMES A DAY 270 90 April 22, 2024 1:00am November 29, 2024 3:47pm ztykzrhk-gxo-cu-lycope n-lutein (1 source) take 1 tablet by mouth once daily CENTRUM SILVER ADULT 50+ TABS 1 tablet by mouth once a day ocirwpky-ujr-og-lycopen-lutein [id number] Terena Pena RN omeprazole 20 mg delayed release oral capsule (20 sources) Proton Pump Inhibitor [facility] t: En d: take 1 capsule by [...] by mouth once a day omeprazole magnesium [id number] Terena Pena RN psyllium 520 mg oral [...] Facility Cardiology Visit Reporton Cardiology Visit Report [facility] [address] [place] [address] OFFICE VISIT Date of Service: 11/29/24 MR#: [id number] Acct: [id number] Name: SUZETTE PALOMINO Rep #: [id number] : 1950 Provider: Dr. Christiano Yuan MD Age/Sex: 74/M [place] [facility] [place] Signed HPI HPI History of Present [...] effusion for which he was sent to [facility] underwent a right thoracotomy with decortication. Incidental [...] a pulmonary function test done through the student services vice president office which demonstrated evidence of mild obstructive ventilatory component with an FEV1 of more than 70% predicted there was no significant measurable clinical response to beta agonist and mild restrictive component confirmed in the lung volumes. He continues to follow with the student services vice president and he tells me that this test [...] Monitor Intake Visit Reasons: 2 Y FU Route Cdl Driver Required: No Accompanied by: Self Is patient in pain?: No Allergies No Known Allergies Allergy (Verified 11/29/24 15:46) Medications ???Medication ???Instructions ???Recorded ???Confirmed ???Type allopurinol 300 mg tablet 1 tab PO DAILY Check with primary 12/12/19 11/29/24 History doctor atorvastatin 10 mg tablet 1 tab PO DAILY cholesterol 0 11/29/24 History wnstpaxq-oc-iwgif 300 mcg-K 60 1 tab PO DAILY [...] History (Re (more content not included)... Normal [facility] Re-Evalution OTon 07-13-2024 Re-Evalution OT [facility] Occupational Therapy [facility] [address] [place] [address] / REEVALUATION / MEDICARE RECERTIFICATION OCCUPATIONAL THERAPY MR#: [id number] Acct: [id number] Name: SUZETTE PALOMINO Rep #: [id number] : 1950 74 From: Saida PADILLA/Lillie T [...] Yes Goal:ROM equal to unaffected hand: Yes Goal:Executive Vice President And Chief Financial Officer/Pinch strength at least 75% of unaffected hand: Yes Goal:No pain with affected hand use: Yes Goal:Full use of affected hand in daily activities including work: Yes Goal:Improvement in sensation documented by [place] monofiliaments: Yes Other Goal: orthosis use: pt [...] do not hesitate to contact me at [phone] by phone or if you have questions or concerns regarding this new plan of care! Sincerely, Saida Cruz, OTR/L, T 07/13/24 1222 CC: Dr. Georgiana Mcfadden MD; Dr. Georgiana Littlejohn MD MK Signed For Medicare only, by signing this I certify the plan of care. Physicians Signature Date Normal [facility] CBC W/Diff, Automatedon 06-18 Absolute Lymph 1.62 X10 3/uL Normal 0.83-4.51 [facility] Comment on above: Performed By: #### L 501.1400, L400, L500.4100, L500.4050, L100.0100 #### [facility] Laboratory [address] [place], [address] Absolute Neut 2.9 X10 3/uL Normal 2.0-7.7 [facility] Comment on above: Performed By: #### L 501.1400, L4, L500.4100, L500.4050, L100.0100 #### [facility] [address] [place], [address] Basophils/100 WBC (Bld) 1.7 % High 0-1 [facility] Comment on above: Performed By: #### L 501.1400, L400.2010, L500.4100, L500.4050, L100.0100 #### [facility] [address] [place], [address] Eosinophils/100 WBC (Bld) 3.4 % Normal 0-5 [facility] Comment on above: Performed By: #### L 501.1400, L4, L500.4100, L500.4050, L100.0100 #### [facility] [address] [place], [address] Erythrocyte distribution width (RBC) [Ratio] 13.5 % Normal 11.6-14.6 [facility] Comment on above: Performed By: #### L 501.1400, L4, L500.4100, L500.4050, L100.0100 #### [facility] [address] [place], [address] Hematocrit (Bld) [Volume fraction] 43.1 % Normal 40-54 [facility] Comment on above: Performed By: #### L 501.1400, L4, L500.4100, L500.4050, L100.0100 #### [facility] [address] [place], [address] Hemoglobin (Bld) [Mass/Vol] 14.7 g/dL Normal 13.0-16.5 [facility] Comment on above: Performed By: #### L 501.1400, L400, L500.4100, L500.4050, L100.0100 #### [facility] [address] [place], [address] IG% 0.600 Normal 0.0-0.9 [facility] Comment on above: Result Comment: IG% - Immature Granulocytes (promyelocytes, myelocytes and metamyelocytes) > 1% indicates that a LEFT SHIFT is Present. Performed By: #### L 501.1400, L400.2010, L500.4100, L500.4050, L100.0100 #### [facility] [address] [place], [address] Lymphocytes/100 WBC (Bld) 30.8 % Normal 19-41 [facility] Comment on above: Performed By: #### L 501.1400, L4, L500.4100, L500.4050, L100.0100 #### [facility] [address] [place], [address] MCH (RBC) [Entitic mass] 30.9 pg Normal 27.0-32.0 [facility] Comment on above: Performed By: #### L 501.1400, L4, L500.4100, L500.4050, L100.0100 #### [facility] [address] [place], [address] MCHC (RBC) [Mass/Vol] 34.1 g/dL Normal 32-36 [facility] Comment on above: Performed By: #### L 501.1400, L4, L500.4100, L500.4050, L100.0100 #### [facility] [address] [place], [address] MCV (RBC) [Entitic vol] 90.7 fL Normal 80-94 [facility] Comment on above: Performed By: #### L 501.1400, L400, L500.4100, L500.4050, L100.0100 #### [facility] [address] [place], [address] Monocytes/100 WBC (Bld) 8.7 % Normal 0-10 [facility] Comment on above: Performed By: #### L 501.1400, L4, L500.4100, L500.4050, L100.0100 #### [facility] [address] [place], [address] Neutrophils/100 WBC (Bld) 54.8 % Normal 47-70 [facility] Comment on above: Performed By: #### L 501.1400, L4, L500.4100, L500.4050, L100.0100 #### [facility] [address] [place], [address] Nucleated RBC (Bld) [#/Vol] 0 10*3/uL Normal 0-5 [facility] Comment on above: Performed By: #### L 501.1400, L4, L500.4100, L500.4050, L100.0100 #### [facility] [address] [place], [address] Platelet mean volume (Bld) [Entitic vol] 8.5 fL Normal 6.2-12.0 [facility] Comment on above: Performed By: #### L 501.1400, , L500.4100, L500.4050, L100.0100 #### [facility] [address] [place], [address] Platelets (Bld) [#/Vol] 254 10*3/uL Normal 150-450 [facility] Comment on above: Performed By: #### L 501.1400, L4, L500.4100, L500.4050, L100.0100 #### [facility] [address] [place], [address] RBC (Bld) [#/Vol] 4.75 10*6/uL Normal 4.6-6.2 [facility] Comment on above: Performed By: #### L 501.1400, L4, L500.4100, L500.4050, L100.0100 #### [facility] [address] [place], [address] RDW SD 45.7 fl High 35.1-43.9 [facility] Comment on above: Performed By: #### L 501.1400, L400, L500.4100, L500.4050, L100.0100 #### [facility] [address] [place], [address] WBC (Bld) [#/Vol] 5.3 10*3/uL Normal 4.4-11.0 [facility] Comment on above: Performed By: #### L 501.1400, L4, L500.4100, L500.4050, L100.0100 #### [facility] [address] [place], [address] Comprehensive Metabolic Prof [facility] 07-05-2024 Albumin [Mass/Vol] 3.8 g/dL Normal 3.2-5.0 [facility] Comment on above: Performed By: #### L 501.1400, L4, L500.4100, L500.4050, L100.0100 ####[facility] [address] [place], [address] Albumin/Globulin [Mass ratio] 1.2 {ratio} Normal 0.9-2.4 [facility] Comment on above: Performed By: #### L 501.1400, L400, L500.4100, L500.4050, L100.0100 ####[facility] [address] [place], [address] ALK P 51 U/L Normal 45-117 [facility] Comment on above: Performed By: #### L 501.1400, L400, L500.4100, L500.4050, L100.0100 ####[facility] [address] [place], [address] ALT [Catalytic activity/Vol] 24 U/L Normal 16-61 [facility] Comment on above: Performed By: #### L 501.1400, L400.2010, L500.4100, L500.4050, L100.0100 ####[facility] [address] [place], [address] AST [Catalytic activity/Vol] 18 U/L Normal 15-37 [facility] Comment on above: Performed By: #### L 501.1400, L4, L500.4100, L500.4050, L100.0100 ####[facility] [address] [place], [address] Bilirubin [Mass/Vol] 1.10 mg/dL High 0.20-1.00 [facility] Comment on above: Result Comment: For patients on eltrombopag therapy, use of Dimension [place] TBIL is not recommended. Performed By: #### L 501.1400, L4, L500.4100, L500.4050, L100.0100 ####[facility] [address] [place], [address] BUN/CRE 19.1 RATIO Normal 10-20 [facility] Comment on above: Performed By: #### L 501.1400, L4, L500.4100, L500.4050, L100.0100 ####[facility] [address] [place], [address] CA,Total 9.2 mg/dL Normal 8.5-10.1 [facility] Comment on above: Performed By: #### L 501.1400, L4, L500.4100, L500.4050, L100.0100 ####[facility] [address] [place], [address] Chloride [Moles/Vol] 108 mmol/L High 98-107 [facility] Comment on above: Performed By: #### L 501.1400, L4, L500.4100, L500.4050, L100.0100 ####[facility] [address] [place], [address] CO2 [Moles/Vol] 26.0 mmol/L Normal 21.0-32.0 [facility] Comment on above: Performed By: #### L 501.1400, L4, L500.4100, L500.4050, L100.0100 ####[facility] [address] [place], [address] Creatinine [Mass/Vol] 1.15 mg/dL Normal 0.70-1.30 [facility] Comment on above: Result Comment: The validity of the calculated GFR GFRAA in patients over 70 years has not been determined. Clinical correlation is essential. Performed By: #### L 501.1400, L4, L500.4100, L500.4050, L100.0100 ####[facility] [address] [place], [address] EST GFR - AA 80 mL/min Normal >60 [facility] Comment on above: Result Comment: Afri can Citizen [place] GFR Calc Performed By: #### L 501.1400, L4, L500.4100, L500.4050, L100.0100 ####[facility] [address] [place], [address] GAP 5 Normal 5-15 [facility] Comment on above: Performed By: #### L 501.1400, L4, L500.4100, L500.4050, L100.0100 ####[facility] [address] [place], [address] GFR/1.73 sq M.predicted among non-blacks MDRD (S/P/Bld) [Vol rate/Area] 66 mL/min/{1.73_m2} Normal >60 [facility] Comment on above: Result Comment: Non- GFR Calc Performed By: #### L 501.1400, L4, L500.4100, L500.4050, L100.0100 ####[facility] [address] [place], [address] Globulin (S) [Mass/Vol] 3.3 g/dL Normal 2.2-4.2 [facility] Comment on above: Performed By: #### L 501.1400, L4, L500.4100, L500.4050, L100.0100 ####[facility] [address] [place], [address] Glucose [Mass/Vol] 95 mg/dL Normal 74-106 [facility] Comment on above: Performed By: #### L 501.1400, , L500.4100, L500.4050, L100.0100 ####[facility] [address] [place], [address] Potassium [Moles/Vol] 4.3 mmol/L Normal 3.5-5.1 [facility] Comment on above: Performed By: #### L 501.1400, , L500.4100, L500.4050, L100.0100 ####[facility] [address] [place], [address] Sodium [Moles/Vol] 140 mmol/L Normal 136-145 [facility] Comment on above: Performed By: #### L 501.1400, L4, L500.4100, L500.4050, L100.0100 ####[facility] [address] [place], [address] T PROT 7.1 g/dL Normal 6.4-8.2 [facility] Comment on above: Performed By: #### L 501.1400, L4, L500.4100, L500.4050, L100.0100 ####[facility] [address] [place], [address] Urea nitrogen [Mass/Vol] 22 mg/dL High - [facility] Comment on above: Performed By: #### L 501.1400, L4, L500.4100, L500.4050, L100.0100 ####[facility] [address] [place], [address] Lipid Profileon 07-05-2024 Cholesterol [Mass/Vol] 134 mg/dL Normal 200 [facility] Comment on above: Result Comment: <200 mg/dL Desirable 200-240 mg/dL Borderline >240 mg/dL High Risk Performed By: #### L 501.1400, L4, L500.4100, L500.4050, L100.0100 ####[facility] [address] [place], [address] Cholesterol in HDL [Mass/Vol] 50 mg/dL Normal [facility] Comment on above: Result Comment: The drugs N-Acetylcysteine and Metamizole may falsely depress this assay. Reference Range HDL <40 mg/dL Low HDL Cholesterol HDL >or= 60 mg/dL High HDL Cholesterol Performed By: #### L 501.1400, L4, L500.4100, L500.4050, L100.0100 ####[facility] [address] [place], [address] Cholesterol in LDL [Mass/Vol] 51 mg/dL Normal 0-130 [facility] Comment on above: Performed By: #### L 501.1400, L4, L500.4100, L500.4050, L100.0100 ####[facility] [address] [place], [address] Cholesterol in VLDL [Mass/Vol] 33 mg/dL Normal 5-40 [facility] Comment on above: Performed By: #### L 501.1400, L400.2010, L500.4100, L500.4050, L100.0100 ####[facility] [address] [place], [address] Triglyceride [Mass/Vol] 164 mg/dL Normal [facility] Comment on above: Result Comment: The drugs N-Acetylcysteine and Metamizole may falsely depress this assay. Serum Triglycerides Reference Interval Normal <150 mg/dL Borderline high 150 - 199 mg/dL High 200 - 499 mg/dL Very High > or = 500 mg/dL Performed By: #### L 501.1400, L4, L500.4100, L500.4050, L100.0100 ####[facility] [address] [place], [address] Uric Acidon 07-05-2024 URIC 4.2 mg/dL Normal 3.5-7.2 [facility] Comment on above: Result Comment: The drugs N-Acetylcysteine and Metamizole may falsely depress this assay. Performed By: #### L 501.1400, L4, L500.4100, L500.4050, L100.0100 ####[facility] [address] [place], [address] Urinalysis, Routine (Dipstic k)on 07-05-2024 BILIRUBIN URINE Negative Normal Negative [facility] Comment on above: Order Comment: Urine , Random Performed By: #### L 501.1400, L4, L500.4100, L500.4050, L100.0100 ####[facility] [address] [place], [address] Clarity (U) Clear Normal Clear [facility] Comment on above: Order Comment: Urine , Random Performed By: #### L 501.1400, L400, L500.4100, L500.4050, L100.0100 ####[facility] [address] [place], [address] Color (U) Yellow Normal Yellow [facility] Comment on above: Order Comment: Urine , Random Performed By: #### L 501.1400, L400.2010, L500.4100, L500.4050, L100.0100 ####[facility] [address] [place], [address] GLUCOSE, UR Normal Normal Normal [facility] Comment on above: Order Comment: Urine , Random Performed By: #### L 501.1400, L4.2010, L500.4100, L500.4050, L100.0100 ####[facility] [address] [place], [address] KETONE UR Negative Normal Negative [facility] Comment on above: Order Comment: Urine , Random Performed By: #### L 501.1400, L4, L500.4100, L500.4050, L100.0100 ####[facility] [address] [place], [address] LEUK ESTERASE Negative Normal Negative [facility] Comment on above: Order Comment: Urine , Random Performed By: #### L 501.1400, L4, L500.4100, L500.4050, L100.0100 ####[facility] [address] [place], [address] Nitrite Ql (U) Negative Normal Negative [facility] Comment on above: Order Comment: Urine , Random Performed By: #### L 501.1400, L4.2010, L500.4100, L500.4050, L100.0100 ####[facility] [address] [place], [address] OCCULT BLOOD-UR Negative Normal Negative [facility] Comment on above: Order Comment: Urine , Random Performed By: #### L 501.1400, L400, L500.4100, L500.4050, L100.0100 ####[facility] [address] [place], [address] pH UR 6.0 Normal 5.0 - 8.0 [facility] Comment on above: Order Comment: Urine , Random Performed By: #### L 501.1400, L400.2011, L500.4100, L500.4050, L100.0100 ####[facility] [address] [place], [address] PROT DIPSTX 15 mg/dl Abnormal Negative [facility] Comment on above: Order Comment: Urine , Random Performed By: #### L 501.1400, L400.2010, L500.4100, L500.4050, L100.0100 ####[facility] [address] [place], [address] SP.GR. DIPSTX 1.020 Normal 1.002-1.030 [facility] Comment on above: Order Comment: Urine , Random Performed By: #### L 501.1400, L400.2010, L500.4100, L500.4050, L100.0100 ####[facility] [address] [place], [address] UROBILI Normal Normal Normal [facility] Comment on above: Order Comment: Urine , Random Performed By: #### L 501.1400, L400.2010, L500.4100, L500.4050, L100.0100 ####[facility] [address] [place], [address] OT General Evaluationon 05-19 OT General Evaluation [facility] Occupational Therapy [address] [place] [address] / REHABILITATION SERVICES INITIAL EVALUATION MR#: [id number] Acct: [id number] Name: SUZETTE PALOMINO Rep #: [id number] : 1950 74 From: Saida PADILLA/L, CHT [...] wound and incision. pt is retired from [employer] and enjoys playing golf. Pt would like to return to CME by September. pt states he did receive [...] bruising/min edema noted on right hand Strength Executive Vice President And Chief Financial Officer: right NT left 90# Lateral Pinch: right NT left 28# Tripod Pinch: right NT left 20# Strength Comments: will test right at later date Sensation Thumb: right 2.83 left 2.83 Little: right 3.61 left 2.83 Quick DASH-Disab of Arm,Shoulder Hand Quick DASH Score: 58.3325 Goals Goal:Daily scar massage when approriate: Yes Goal:ROM equal to unaffected hand: Yes Goal:Executive Vice President And Chief Financial Officer/Pinch strength at least 75% of unaffected hand: Yes Goal:No pain with affected hand use: Yes Goal:Full use of affected hand in daily activities including work: Yes Goal:Improvement in sensation documented by [place] monofiliaments: Yes Other Goal: orthosis use: pt [...] to be FAXED BACK to us at [phone] for Medicare purposes. Please let me know if there are questions or concerns regarding this plan of care. Physician Signature: Date : 06/08/24 1031 CC: Dr. Georgiana Mcfadden MD; Dr. Georgiana Littlejohn MD MK Signed For Medicare only, by signing this I certify the plan of care. Physicians Signature Date Normal [facility] Gastroenterology Visit Repor ton 04-22-2024 Gastroenterology Visit Report [facility] Gastroenterology [address] [place] [address] OFFICE VISIT Date of Service: 04/22/24 MR#: [id number] Acct: [id number] Name: SUZETTE PALOMINO Rep #: [id number] : 1950 Provider: Pantera Cervantes DO Age/Sex: 74/M Location: [facility] Status: Signed Intake Vital Signs 03/27/23 10:01 Height 6 ft Intake Visit Reasons: 6 M FU Allergies No Known Allergies Allergy (Verified 06/29/23 13:02) Medications ???Medication ???Instructions ???Recorded ???Confirmed ???Type allopurinol 300 mg tablet 1 tab PO DAILY Check with primary 12/12/19 04/22/24 History doctor atorvastatin 10 mg tablet 1 tab PO DAILY cholesterol 12/12/19 04/22/24 History khyopmzl-ki-nhwms 300 mcg-K 60 1 tab PO DAILY [...] PO BID #120 04/04/24 04/22/24 Rx TABLETS mrbgha-lydkomou-ytlve se 1 cap PO TID 3 months [...] TA polyp ? Esophageal Manometry 06.13.21 No [place] classification. Incomplete bolus clearance with every swallow [...] been ineffective. Recently returned from travel to [place] and [facility]???s. OV 10.14.24 Pt reports that he continues to have urgent loose stools once a week and is unable to identify trigger. States that he tried Colestipol 1g for a month and is unsure if (more content not included)... Normal [facility] PSA,Total- Diagnosticon 10-2 PSA, DIAGNOSTIC 2.78 ng/mL Normal 0.0-4.0 [facility] Comment on above: Result Comment: This test was performed using the TPSA assay method for the [employer] system. Values obtained with different assay methods cannot be used interchangably. When changing PSA assays in the course of monitoring a patient, additional sequential testing should be carried out to confirm baseline values. Performed By: #### L 501.9940 #### [facility] [address] [place], [address] Venous Duplex US - [facility] 01-25-2024 Venous Duplex US - Harley [facility] [address] [place] [address] Venous Duplex US - Harley [facility] 01/25/24 1453 MR#: [id number] Acct: [id number] Name: SUZETTE PALOMINO Rep #: [id number] : 1950 74 From: Sawyer Montenegro MD [...] Date Dictated: 01/25/24 1453 Date Transcribed: 01/25/241831 Metal Sander: Signed Normal [facility] Comprehensive Metabolic Prof ilon 01-07-2024 Albumin [Mass/Vol] 3.9 g/dL Normal 3.2-5.0 [facility] Comment on above: Order Comment: Order Date: 01/07/24 Order Info: [id number] - CMP Order Info: [id number] - LIPID Order Info: [id number] - URIC Performed By: #### L 501.1400, L500.4100, L500.4050 #### [facility] [address] [place], [address] Albumin/Globulin [Mass ratio] 1.2 {ratio} Normal 0.9-2.4 [facility] Comment on above: Order Comment: Order Date: 01/07/24 Order Info: [id number] - CMP Order Info: [id number] - LIPID Order Info: [id number] - URIC Performed By: #### L 501.1400, L500.4100, L500.4050 #### [facility] [address] [place], [address] ALK P 82 U/L Normal 45-117 [facility] Comment on above: Order Comment: Order Date: 01/07/24 Order Info: [id number]- - CMP Order Info: - LIPID Order Info: [id number] - URIC Performed By: #### L 501.1400, L500.4100, L500.4050 #### [facility] [address] [place], [address] ALT [Catalytic activity/Vol] 20 U/L Normal 16-61 [facility] Comment on above: Order Comment: Order Date: 01/07/24 Order Info: [id number] - CMP Order Info: - LIPID Order Info: [id number] - URIC Performed By: #### L 501.1400, L500.4100, L500.4050 #### [facility] [address] [place], [address] AST [Catalytic activity/Vol] 15 U/L Normal 15-37 [facility] Comment on above: Order Comment: Order Date: 01/07/24 Order Info: [id number] - CMP Order Info: - LIPID Order Info: [id number] - URIC Performed By: #### L 501.1400, L500.4100, L500.4050 #### [facility] [address] [place], [address] Bilirubin [Mass/Vol] 1.00 mg/dL Normal 0.20-1.00 [facility] Comment on above: Order Comment: Order Date: 01/07/24 Order Info: [id number] - CMP Order Info: - LIPID Order Info: [id number] - URIC Result Comment: For patients on eltrombopag therapy, use of Dimension [place] TBIL is not recommended. Performed By: #### L 501.1400, L500.4100, L500.4050 #### [facility] [address] [place], [address] BUN/CRE 18.3 RATIO Normal 10-20 [facility] Comment on above: Order Comment: Order Date: 01/07/24 Order Info: [id number]- - CMP Order Info: - LIPID Order Info: [id number] - URIC Performed By: #### L 501.1400, L500.4100, L500.4050 #### [facility] [address] [place], [address] CA,Total 9.1 mg/dL Normal 8.5-10.1 [facility] Comment on above: Order Comment: Order Date: 01/07/24 Order Info: [id number] - CMP Order Info: - LIPID Order Info: [id number] - URIC Performed By: #### L 501.1400, L500.4100, L500.4050 #### [facility] [address] [place], [address] Chloride [Moles/Vol] 107 mmol/L Normal 98-107 [facility] Comment on above: Order Comment: Order Date: 01/07/24 Order Info: [id number] - CMP Order Info: - LIPID Order Info: [id number] - URIC Performed By: #### L 501.1400, L500.4100, L500.4050 #### [facility] [address] [place], [address] CO2 [Moles/Vol] 26.0 mmol/L Normal 21.0-32.0 [facility] Comment on above: Order Comment: Order Date: 01/07/24 Order Info: [id number] - CMP Order Info: [id number] - LIPID Order Info: [id number] - URIC Performed By: #### L 501.1400, L500.4100, L500.4050 #### [facility] [address] [place], [address] Creatinine [Mass/Vol] 1.26 mg/dL Normal 0.70-1.30 [facility] Comment on above: Order Comment: Order Date: 01/07/24 Order Info: 785-05 - CMP Order Info: [id number] - LIPID Order Info: [id number] - URIC Result Comment: The validity of the calculated GFR GFRAA in patients over 70 years has not been determined. Clinical correlation is essential. Performed By: #### L 501.1400, L500.4100, L500.4050 #### [facility] [address] [place], [address] EST GFR - AA 72 mL/min Normal >60 [facility] Comment on above: Order Comment: Order Date: 01/07/24 Order Info: 785-05 - CMP Order Info: - LIPID Order Info: [id number] - URIC Result Comment: Afri can [place] GFR Calc Performed By: #### L 501.1400, L500.4100, L500.4050 #### [facility] [address] [place], [address] GAP 5 Normal 5-15 [facility] Comment on above: Order Comment: Order Date: 01/07/24 Order Info: 785-05 - CMP Order Info: [id number] - LIPID Order Info: [id number] - URIC Performed By: #### L 501.1400, L500.4100, L500.4050 #### [facility] [address] [place], [address] GFR/1.73 sq M.predicted among non-blacks MDRD (S/P/Bld) [Vol rate/Area] 60 mL/min/{1.73_m2} Normal >60 [facility] Comment on above: Order Comment: Order Date: 01/07/24 Order Info: [id number] - CMP Order Info: - LIPID Order Info: [id number] - URIC Result Comment: Non- GFR Calc Performed By: #### L 501.1400, L500.4100, L500.4050 #### [facility] [address] [place], [address] Globulin (S) [Mass/Vol] 3.2 g/dL Normal 2.2-4.2 [facility] Comment on above: Order Comment: Order Date: 01/07/24 Order Info: 785-05 - CMP Order Info: - LIPID Order Info: [id number] - URIC Performed By: #### L 501.1400, L500.4100, L500.4050 #### [facility] [address] [place], [address] Glucose [Mass/Vol] 84 mg/dL Normal 74-106 [facility] Comment on above: Order Comment: Order Date: 01/07/24 Order Info: 785-05 - CMP Order Info: - LIPID Order Info: [id number] - URIC Performed By: #### L 501.1400, L500.4100, L500.4050 #### [facility] [address] [place], [address] Potassium [Moles/Vol] 4.0 mmol/L Normal 3.5-5.1 [facility] Comment on above: Order Comment: Order Date: 01/07/24 Order Info: 785-05 - CMP Order Info: - LIPID Order Info: [id number] - URIC Performed By: #### L 501.1400, L500.4100, L500.4050 #### [facility] [address] [place], [address] Sodium [Moles/Vol] 138 mmol/L Normal 136-145 [facility] Comment on above: Order Comment: Order Date: 01/07/24 Order Info: 785-05 - CMP Order Info: - LIPID Order Info: [id number] - URIC Performed By: #### L 501.1400, L500.4100, L500.4050 #### [facility] [address] [place], [address] T PROT 7.1 g/dL Normal 6.4-8.2 [facility] Comment on above: Order Comment: Order Date: 01/07/24 Order Info: 785-05 - CMP Order Info: [id number] - LIPID Order Info: 3083-05 - URIC Performed By: #### L 501.1400, L500.4100, L500.4050 #### [facility] [address] [place], [address] Urea nitrogen [Mass/Vol] 23 mg/dL High 7-18 [facility] Comment on above: Order Comment: Order Date: 01/07/24 Order Info: 785-05 - CMP Order Info: [id number] - LIPID Order Info: [id number] - URIC Performed By: #### L 501.1400, L500.4100, L500.4050 #### [facility] [address] [place], [address] Lipid Profileon 01-07-2024 Cholesterol [Mass/Vol] 135 mg/dL Normal 200 [facility] Comment on above: Order Comment: Order Date: 01/07/24 Order Info: 86 - CMP Order Info: [id number] - LIPID Order Info: [id number]- - URIC Result Comment: <200 mg/dL Desirable 200-240 mg/dL Borderline >240 mg/dL High Risk Performed By: #### L 501.1400, L500.4100, L500.4050 #### [facility] [address] [place], [address] Cholesterol in HDL [Mass/Vol] 56 mg/dL Normal [facility] Comment on above: Order Comment: Order Date: 01/07/24 Order Info: 785-05 - CMP Order Info: - LIPID Order Info: [id number] - URIC Result Comment: The drugs N-Acetylcysteine and Metamizole may falsely depress this assay. Reference Range HDL <40 mg/dL Low HDL Cholesterol HDL >or= 60 mg/dL High HDL Cholesterol Performed By: #### L 501.1400, L500.4100, L500.4050 #### [facility] [address] [place], [address] Cholesterol in LDL [Mass/Vol] 55 mg/dL Normal 0-130 [facility] Comment on above: Order Comment: Order Date: 01/07/24 Order Info: 785-05 - CMP Order Info: - LIPID Order Info: [id number] - URIC Performed By: #### L 501.1400, L500.4100, L500.4050 #### [facility] [address] [place], [address] Cholesterol in VLDL [Mass/Vol] 24 mg/dL Normal 5-40 [facility] Comment on above: Order Comment: Order Date: 01/07/24 Order Info: [id number] - CMP Order Info: - LIPID Order Info: [id number] - URIC Performed By: #### L 501.1400, L500.4100, L500.4050 #### [facility] [address] [place], [address] Triglyceride [Mass/Vol] 118 mg/dL Normal [facility] Comment on above: Order Comment: Order [...] By: #### L 501.1400, L500.4100, L500.4050 #### [facility] [address] [place], [place], [address] Uric Acidon 01-07-2024 URIC 4.1 mg/dL Normal 3.5-7.2 [facility] Comment on above: Order Comment: Order Date: 01/07/24 Order Info: [id number] - CMP Order Info: [id number] - LIPID Order Info: [id number] - URIC Result Comment: The drugs N-Acetylcysteine and Metamizole may falsely depress this assay. Performed By: #### L 501.1400, L500.4100, L500.4050 #### [facility] [address] [place], [address] Absolute lymphocyte countOrd ered By: Georgiana Mcfadden on 06-26-2023 Lymphocytes Auto (Unsp spec) [#/Vol] 1.55 10*3/uL 0.83-4.51 [facility] Automated lymphocyte count a s percentage of total leukocytesOrdered By: Georgiana Mcfadden on 06-26-2023 Lymphocytes/100 WBC Auto (Unsp spec) 24.4 % 19-41 [facility] Basophil percentageOrdered B y: Georgiana Mcfadden on 06-26-2023 Basophils/100 WBC (Bld) 1.3 % 0-1 [facility] Bilirubin [Mass/Vol] 0.70 mg/dL 0.20-1.00 [facility] Comment on above: For patients on eltr ombopag therapy, use of Dimension [place] TBIL is not recommended. Chloride [Moles/Vol] 108 mmol/L 98-107 [facility] Cholesterol [Mass/Vol] 151 mg/dL <200 [facility] Comment on above: <200 mg/dL Desirable 200-240 mg/dL Borderline >240 mg/dL High Risk Eosinophils/100 WBC (Bld) 2.5 % 0-5 [facility] Glucose [Mass/Vol] 89 mg/dL 74-106 [facility] Hemoglobin (Bld) [Mass/Vol] 15.0 g/dL 13.0-16.5 [facility] Monocytes/100 WBC (Bld) 7.7 % 0-10 [facility] Neutrophils (Bld) [#/Vol] 4.0 10*3/uL 2.0-7.7 [facility] Neutrophils/100 WBC (Bld) 63.6 % 47-70 [facility] Potassium [Moles/Vol] 4.0 mmol/L 3.5-5.1 [facility] Protein [Mass/Vol] 7.3 g/dL 6.4-8.2 [facility] Sodium [Moles/Vol] 141 mmol/L 136-145 [facility] Triglyceride [Mass/Vol] 154 mg/dL <199 [facility] Comment on above: The drugs N-Acetylcy steine and Metamizole may falsely depress this assay.Serum Triglycerides Reference Interval Normal <150 mg/dL Borderline high 150 - 199 mg/dL High 200 - 499 mg/dL Very High > or = 500 mg/dL WBC (Bld) [#/Vol] 6.4 10*3/uL 4.4-11.0 [facility] Determination of erythrocyte mean corpuscular volume (MCV)Ordered By: Georgiana Mcfadden on 06-26-2023 MCV (RBC) [Entitic vol] 90.2 fL 80-94 [facility] Erythrocyte distribution wid th ratioOrdered By: Georgiana Mcfadden on 06-26-2023 Erythrocyte distribution width (RBC) [Ratio] 14.4 % 11.6-14.6 [facility] Erythrocyte distribution wid th standard deviationOrdered By: Georgiana Mcfadden on 06-26-2023 Erythrocyte distribution width (RBC) [Entitic vol] 46.4 fL 35.1-43.9 [facility] Hematocrit Auto (Bld) [Volum e fraction]Ordered By: Georgiana Mcfadden on 06-26-2023 Hematocrit (Bld) [Volume fraction] 45.1 % 40-54 [facility] Immature granulocytes/100 WB C Auto (Bld)Ordered By: Georgiana Mcfadden on 06-26-2023 Immature granulocytes/100 WBC (Bld) 0.500 % 0.0-0.9 [facility] Comment on above: IG% - Immature Granu locytes (promyelocytes, myelocytes and metamyelocytes) > 1% indicates that a LEFT SHIFT is Present. Laboratory - Chemistry and C hemistry - challengeOrdered By: Georgiana Mcfadden on 06-26-2023 Albumin/Globulin [Mass ratio] 1.1 {ratio} 0.9-2.4 [facility] ALP [Catalytic activity/Vol] 73 U/L 45-117 [facility] ALT [Catalytic activity/Vol] 23 U/L 16-61 [facility] Cholesterol in HDL [Mass/Vol] 52 mg/dL >40 [facility] Comment on above: The drugs N-Acetylcy steine and Metamizole may falsely depress this assay. Reference Range HDL <40 mg/dL Low HDL Cholesterol HDL >or= 60 mg/dL High HDL Cholesterol Cholesterol in LDL [Mass/Vol] 68 mg/dL 0-130 [facility] CO2 [Moles/Vol] 26.0 mmol/L 21.0-32.0 [facility] Globulin (S) [Mass/Vol] 3.4 g/dL 2.2-4.2 [facility] Urea nitrogen/Creatinine [Mass ratio] 20.9 mg/mg 10-20 [facility] Laboratory - Hematology and Cell countsOrdered By: Georgiana Mcfadden on 06-26-2023 MCH (RBC) [Entitic mass] 30.0 pg 27.0-32.0 [facility] MCHC (RBC) [Mass/Vol] 33.3 g/dL 32-36 [facility] Nucleated RBC/100 WBC (Bld) [Ratio] 0 % 0-5 [facility] Platelet mean volume (Bld) [Entitic vol] 8.7 fL 6.2-12.0 [facility] Platelets (Bld) [#/Vol] 241 10*3/uL 150-450 [facility] No Panel InformationOrdered By: Georgiana Mcfadden on 06-26-2023 Estimated GFR (MDRD) Amer 84 mL/min >60 [facility] Comment on above: GFR Calc Estimated GFR (MDRD) Non-Af Amer 70 mL/min >60 [facility] Comment on above: Non- GFR Calc VLDL Cholesterol 31 mg/dL 5-40 [facility] RBC Auto (Bld) [#/Vol]Ordere d By: Georgiana Mcfadden on 06-26-2023 RBC (Bld) [#/Vol] 5.00 10*6/uL 4.6-6.2 [facility] Serum or plasma calcium flower urement (mass/volume)Ordered By: Georgiana Mcfadden on 06-26-2023 Calcium [Mass/Vol] 9.3 mg/dL 8.5-10.1 [facility] Serum or plasma creatinine m easurement (mass/volume)Ordered By: Georgiana Mcfadden on 06-26-2023 Creatinine [Mass/Vol] 1.10 mg/dL 0.70-1.30 [facility] Comment on above: The validity of the calculated GFR & GFRAA in patients over 70 years has not been determined. Clinical correlation is essential. Serum or plasma thyroid stim ulating hormone (TSH) measurement (units/volume)Ordered By: Georgiana Mcfadden on 06-26-2023 TSH Qn 2.69 uIU/mL 0.358-3.74 [facility] Serum or plasma urea nitroge n measurement (mass/volume)Ordered By: Georgiana Mcfadden on 06-26-2023 Urea nitrogen [Mass/Vol] 23 mg/dL 7-18 [facility] Serum or plasma uric acid me asurement (mass/volume)Ordered By: Georgiana Mcfadden on 06-26-2023 Urate [Mass/Vol] 3.8 mg/dL 3.5-7.2 [facility] Comment on above: The drugs N-Acetylcy steine and Metamizole may falsely depress this assay. Thin prep Papanicolaou smear with manual screeningOrdered By: Georgiana Mcfadden on 06-26-2023 Thin prep Papanicolaou smear with manual screening 3.9 g/dL 3.2-5.0 [facility] Thin prep Papanicolaou smear with manual screening 15 U/L 15-37 [facility] Thin prep Papanicolaou smear with manual screening 7 5-15 [facility] Clostridioides difficile nuc leic acid assay by PCROrdered By: Pantera Cervantes on 06-03-2023 C. difficile DNA PADMINI+probe Ql (Unsp spec) [facility] Laboratory - Microbiology an d Antimicrobial susceptibilityOrdered By: Pantera Cervantes on 06-03-2023 G. lamblia Ag IA.rapid Ql (Stl) [facility] G. lamblia Ag IA.rapid Ql (Stl) [facility] No Panel InformationOrdered By: Pantera Cervantes on 06-03-2023 Stool Calprotectin 15 ug/g 0-120 [facility] Comment on above: Concentration Interp retation Follow-Up< 5 - 50 ug/g Normal None>50 -120 ug/g Borderline Re-evaluate in 4-6 weeks >120 ug/g Abnormal Repeat as clinically indicatedPerformed at: [facility] [address] [id number] Director: Laury Frias MD, Phone: [phone] Ova and parasitesOrdered By: Pantera Cervantes on 06-03-2023 Ova and parasites identified LM Nom (Unsp spec) [facility] Ova and parasites identified LM Nom (Unsp spec) [facility] Stool enteric pathogen panel by probe and target amplification methodOrdered By: Pantera Cervantes on 06-03-2023 Gastrointestinal pathogens panel PADMINI+probe (Stl) [facility] Stool lactoferrin detection by immunoassayOrdered By: Pantera Cervantes on 06-03-2023 Lactoferrin IA Ql (Stl) [facility] Stool pancreatic elastase me asurement (mass/mass)Ordered By: Pantera Cervantes on 06-03-2023 Elastase.pancreatic (Stl) [Mass/Mass] 242 >200 [facility] Comment on above: Result Units: ug [place] st./g Severe Pancreatic Insufficiency: <100 Moderate Pancreatic Insufficiency: 100 - 200 Normal: >200Performed at: [facility] [address] [id number] Director: Laury Frias MD, Phone: [phone] Basophil percentageOrdered B y: Pantera Cervantes on 05-29-2023 Basophil percentage 0.2 AI 0.0-0.9 [facility] Basophil percentage < 0.2 AI 0.0-0.9 [facility] LDH [Catalytic activity/Vol] 219 U/L 87-241 [facility] Erythrocyte sedimentation ra teOrdered By: Pantera Cervantes on 05-29-2023 ESR (Bld) [Velocity] 6 mm/h 0-20 [facility] Immunoglobulin M measurement Ordered By: Pantera Cervantes on 05-29-2023 IgM (U) [Mass/Vol] 66 mg/dL 15-143 [facility] Laboratory - Chemistry and C hemistry - challengeOrdered By: Pantera Cervantes on 05-29-2023 Cobalamin (Vitamin B12) [Mass/Vol] 488 pg/mL 211-911 [facility] Free T4 [Mass/Vol] 0.99 ng/dL 0.76-1.46 [facility] Lipase [Catalytic activity/Vol] 34 U/L 13-75 [facility] Comment on above: Please note:LIPASE r evised reference range effective 22. New Lipase methodology. Expected to produce lower values than the previous assay method. NEW Reference Range: 13 - 75 U/L No Panel InformationOrdered By: Pantera Cervantes on 05-29-2023 Centromere B Antibody <0.2 AI 0.0-0.9 [facility] Endomysial IgA Antibody Negative Negative [facility] Comment on above: Serum is slightly li pemic. Free Triiodothyronine (T3) pg/dL 2.4 pg/mL 2.18-3.98 [facility] Immunoglobulin E 15 IU/mL 6-495 [facility] Comment on above: Performed at: [facility] [address] [id number] Director: Nagi Mark PhD, Phone: [phone] at: [facility] [address] [id number] Director: Laury Frias MD, Phone: [phone] Immunoglobulin G4 23 mg/dL 2-96 [facility] [employer] HELPER Antibody 0.8 AI 0.0-0.9 [facility] Thyroid Stimulating Hormone (TSH) 2.64 uIU/mL 0.358-3.74 [facility] Serum DNA double strand anti body assay (units/volume)Ordered By: Pantera Cervantes on 05-29-2023 DNA double strand Ab Qn (S) [IU]/mL 0-9 [facility] Comment on above: Negative <5 Equivoca l 5 - 9 Positive >9 Serum IgG subclass 1 measure ment (mass/volume)Ordered By: Pantera Cervantes on 05-29-2023 IgG subclass 1 (S) [Mass/Vol] 588 mg/dL 248-810 [facility] Serum IgG subclass 2 measure ment (mass/volume)Ordered By: Pantera Cervantes on 05-29-2023 IgG subclass 2 (S) [Mass/Vol] 316 mg/dL 130-555 [facility] Serum IgG subclass 3 measure ment (mass/volume)Ordered By: Pantera Cervantes on 05-29-2023 IgG subclass 3 (S) [Mass/Vol] 65 mg/dL 15-102 [facility] Serum Laura-1 antibody assay (u nits/volume)Ordered By: Pantera Cervantes on 05-29-2023 Laura-1 extractable nuclear Ab Qn (S) <0.2 AI 0.0-0.9 [facility] Serum Scl-70 antibody assay (units/volume)Ordered By: Pantera Cervantes on 05-29-2023 SCL-70 extractable nuclear Ab Qn (S) <0.2 AI 0.0-0.9 [facility] Serum Friend antibody detecti onOrdered By: Pantera Cervantes on 05-29-2023 Friend extractable nuclear Ab Ql (S) <0.2 AI 0.0-0.9 [facility] Serum or plasma C reactive p rotein measurement (mass/volume)Ordered By: Pantera Cervantes on 05-29-2023 CRP [Mass/Vol] mg/L 0.0-3.0 [facility] Comment on above: C-Reactive Protein ( CRP) provides useful information for thediagnosis, therapy and monitoring of inflammatory processesand associated diseases. For the evaluation of Relative Riskfor Cardiovascular Disease, a High Sensitivity CRP (HSCRP)should be ordered. Serum or plasma IgA measurem ent (mass/volume)Ordered By: Pantera Cervantes on 05-29-2023 IgA [Mass/Vol] 215 mg/dL 61-437 [facility] Serum or plasma IgG measurem ent (mass/volume)Ordered By: Pantera Cervantes on 05-29-2023 IgG [Mass/Vol] Not Reportable [facility] IgG [Mass/Vol] 1076 mg/dL [phone] [facility] Serum tissue transglutaminas e IgA antibody assay (units/volume)Ordered By: Pantera Cervantes on 05-29-2023 tTG IgA Qn (S) <2 U/mL 0-3 [facility] Comment on above: Negative 0 - 3 Weak Positive 4 - 10 Positive >10 Tissue Transglutaminase (tTG) has been identified as the endomysial antigen. Studies have demonstr- ated that endomysial IgA antibodies have over 99% specificity for gluten sensitive enteropathy. Whole blood hemoglobin A1c/t otal hemoglobin ratio (mass fraction)Ordered By: Pantera Cervantes on 05-29-2023 HbA1c (Bld) [Mass fraction] 5.4 % 3.8-5.6 [facility] Comment on above: Normal < 5.7 % Predi abetic 5.7 - 6.4 % Diabetic >or= 6.5 % Please note range changes. No Panel InformationOrdered By: Georgiana Mcfadden on 03-24-2023 Prostate Specific Antigen Screen 2.66 ng/mL 0.00-4.00 [facility] Comment on above: This test was perfor med using the TPSA assay method for [employer] chemistry system. Values obtained with differentassay methods cannot be used interchangably.When changing PSA assays in the course of monitoring apatient, additional sequential testing should be carriedout to confirm baseline values. Barnett's yeast IgE serumOrde red By: Forrest Partida on 02-19-2023 Barnett's yeast IgE Qn (S) <0.10 kU/L Class 0 [facility] Laboratory - Miscellaneous t estsOrdered By: Forrest Partida on 02-19-2023 Service comment (Unsp spec) [Interp] Comment . [facility] Comment on above: Levels of [...] Partida on 02-19-2023 Miscellaneous Test See comment [facility] Comment on above: TEST RESULTS LIMITSF 036-[id number] Coconut <0.10 kU/L Class 0 TESTING PERFORMED AT [facility]. ORIGINAL REPORT ON FILE IN LAB CONTAINS ADDITIONAL TEST SITE INFORMATION. Scallop Allergen <0.10 kU/L Class 0 [facility] Sesame Seed Allergen IgE Antibody <0.10 kU/L Class 0 [facility] Shrimp Allergen <0.10 kU/L Class 0 [facility] Serum Ustilago avenae IgE an tibody assay (units/volume)Ordered By: Forrest Partida on 02-19-2023 Oat smut IgE Qn (S) <0.10 kU/L Class 0 [facility] Serum banana IgE antibody as say (units/volume)Ordered By: Forrest Partida on 02-19-2023 Banana IgE Qn (S) <0.10 kU/L Class 0 [facility] Comment on above: Performed at: [address] [id number] Director: Laury Frias MD, Phone: [phone] Serum black walnut IgE antib fredrick assay (units/volume)Ordered By: Forrest Partida on 02-19-2023 Black [place] IgE Qn (S) <0.10 kU/L Class 0 [facility] Serum cashew nut IgE antibod y assay (units/volume)Ordered By: Forrest Partida on 02-19-2023 Cashew nut IgE Qn (S) <0.10 kU/L Class 0 [facility] Serum clam IgE antibody assa y (units/volume)Ordered By: Forrest Partida on 02-19-2023 Clam IgE Qn (S) <0.10 kU/L Class 0 [facility] Serum codfish IgE antibody a ssay (units/volume)Ordered By: Forrest Partida on 02-19-2023 Codfish IgE Qn (S) <0.10 kU/L Class 0 [facility] Serum corn IgE antibody assa y (units/volume)Ordered By: Forrest Partida on 02-19-2023 [place] IgE Qn (S) <0.10 kU/L Class 0 [facility] Serum cow milk IgE antibody assay (units/volume)Ordered By: Forrest Partida on 02-19-2023 Cow milk IgE Qn (S) <0.10 kU/L Class 0 [facility] Serum egg white IgE antibody assay (units/volume)Ordered By: Forrest Partida on 02-19-2023 Egg white IgE Qn (S) <0.10 kU/L Class 0 [facility] Serum garlic IgE antibody as say (units/volume)Ordered By: Forrest Partida on 02-19-2023 Garlic IgE Qn (S) <0.10 kU/L Class 0 [facility] Serum lobster IgE antibody a ssay (units/volume)Ordered By: Forrest Partida on 02-19-2023 Lobster IgE Qn (S) <0.10 kU/L Class 0 [facility] Serum onion IgE antibody ass ay (units/volume)Ordered By: Forrest Partida on 02-19-2023 Onion IgE Qn (S) <0.10 kU/L Class 0 [facility] Serum peanut IgE antibody as say (units/volume)Ordered By: Forrest Partida on 02-19-2023 Peanut IgE Qn (S) <0.10 kU/L Class 0 [facility] Serum soybean IgE antibody a ssay (units/volume)Ordered By: Forrest Partida on 02-19-2023 Soybean IgE Qn (S) <0.10 kU/L Class 0 [facility] Serum tomato IgE antibody as say (units/volume)Ordered By: Forrest Partida on 02-19-2023 Tomato IgE Qn (S) <0.10 kU/L Class 0 [facility] Serum wheat IgE antibody ass ay (units/volume)Ordered By: Forrest Partida on 02-19-2023 Wheat IgE Qn (S) <0.10 kU/L Class 0 [facility] Absolute lymphocyte countOrd ered By: Georgiana Mcdanieldamien on 12-11-2022 Lymphocytes Auto (Unsp spec) [#/Vol] 1.60 10*3/uL 0.83-4.51 [facility] Basophil percentageOrdered B y: Georgiana Mcfadden on 12-11-2022 Basophil percentage 0 SEEN /hpf 0-5 [facility] Basophils/100 WBC (Bld) 1.4 % 0-1 [facility] Bilirubin [Mass/Vol] 0.90 mg/dL 0.20-1.00 [facility] Comment on above: For patients on eltr ombopag therapy, use of Dimension [place] TBIL is not recommended. Chloride [Moles/Vol] 108 mmol/L 98-107 [facility] Cholesterol [Mass/Vol] 134 mg/dL <200 [facility] Comment on above: <200 mg/dL Desirable 200-240 mg/dL Borderline >240 mg/dL High Risk Eosinophils/100 WBC (Bld) 2.9 % 0-5 [facility] Glucose [Mass/Vol] 97 mg/dL 74-106 [facility] Neutrophils (Bld) [#/Vol] 3.3 10*3/uL 2.0-7.7 [facility] Neutrophils/100 WBC (Bld) 57.8 % 47-70 [facility] Potassium [Moles/Vol] 4.2 mmol/L 3.5-5.1 [facility] Protein [Mass/Vol] 6.6 g/dL 6.4-8.2 [facility] Sodium [Moles/Vol] 140 mmol/L 136-145 [facility] Triglyceride [Mass/Vol] 105 mg/dL <199 [facility] Comment on above: The drugs N-Acetylcy steine and Metamizole may falsely depress this assay.Serum Triglycerides Reference Interval Normal <150 mg/dL Borderline high 150 - 199 mg/dL High 200 - 499 mg/dL Very High > or = 500 mg/dL WBC (Bld) [#/Vol] 5.8 10*3/uL 4.4-11.0 [facility] Bilirubin Test strip Ql (U)O rdered By: Georgiana Mcfadden on 12-11-2022 Bilirubin Ql (U) Negative Negative [facility] Blood erythrocytes count (nu mber/volume)Ordered By: Georgiana Mcfadden on 12-11-2022 RBC (Bld) [#/Vol] 4.82 10*6/uL 4.6-6.2 [facility] Blood hemoglobin measurement (mass/volume)Ordered By: Georgiana Mcfadden on 12-11-2022 Hemoglobin (Bld) [Mass/Vol] 14.8 g/dL 13.0-16.5 [facility] Blood lymphocytes/100 leukoc ytesOrdered By: Georgiana Mcfadden on 12-11-2022 Lymphocytes/100 WBC (Bld) 27.7 % 19-41 [facility] Blood monocytes/100 leukocyt esOrdered By: Georgiana Mcfadden on 12-11-2022 Monocytes/100 WBC (Bld) 9.5 % 0-10 [facility] Blood platelet mean volumeOr dered By: Georgiana Mcfadden on 12-11-2022 Platelet mean volume (Bld) [Entitic vol] 9.0 fL 6.2-12.0 [facility] Determination of erythrocyte mean corpuscular volume (MCV)Ordered By: Georgiana Mcfadden on 12-11-2022 MCV (RBC) [Entitic vol] 92.1 fL 80-94 [facility] Hematocrit Auto (Bld) [Volum e fraction]Ordered By: Georgiana Mcfadden on 12-11-2022 Hematocrit (Bld) [Volume fraction] 44.4 % 40-54 [facility] Ketones Test strip Ql (U)Ord ered By: Georgiana Mcfadden on 12-11-2022 Ketones Ql (U) Negative Negative [facility] Laboratory - Chemistry and C hemistry - challengeOrdered By: Georgiana Mcfadden on 12-11-2022 ALP [Catalytic activity/Vol] 68 U/L 45-117 [facility] ALT [Catalytic activity/Vol] 22 U/L 16-61 [facility] CO2 [Moles/Vol] 26.0 mmol/L 21.0-32.0 [facility] Globulin (S) [Mass/Vol] 3.1 g/dL 2.2-4.2 [facility] Urea nitrogen/Creatinine [Mass ratio] 18.5 mg/mg 10-20 [facility] Laboratory - Hematology and Cell countsOrdered By: Georgiana Mcfadden on 12-11-2022 Erythrocyte distribution width (RBC) [Entitic vol] 46.1 fL 35.1-43.9 [facility] Erythrocyte distribution width (RBC) [Ratio] 13.7 % 11.6-14.6 [facility] Immature granulocytes/100 WBC (Bld) 0.700 % 0.0-0.9 [facility] Comment on above: IG% - Immature Granu locytes (promyelocytes, myelocytes and metamyelocytes) > 1% indicates that a LEFT SHIFT is Present. MCH (RBC) [Entitic mass] 30.7 pg 27.0-32.0 [facility] Nucleated RBC/100 WBC (Bld) [Ratio] 0 % 0-5 [facility] MCHC Auto (RBC) [Mass/Vol]Or dered By: Georgiana Mcfadden on 12-11-2022 MCHC (RBC) [Mass/Vol] 33.3 g/dL 32-36 [facility] Mucus LM Ql (Urine sed)Order ed By: Georgiana Mcfadden on 12-11-2022 Mucus Ql (Urine sed) 0 SEEN /hpf [facility] Nitrite Test strip Ql (U)Ord ered By: Georgiana Mcfadden on 12-11-2022 Nitrite Ql (U) Negative Negative [facility] No Panel InformationOrdered By: Georgiana Mcfadden on 12-11-2022 Estimated GFR (MDRD) Amer 77 mL/min >60 [facility] Comment on above: GFR Calc Estimated GFR (MDRD) Non-Af Amer 64 mL/min >60 [facility] Comment on above: Non- GFR Calc Thyroid Stimulating Hormone (TSH) 2.95 uIU/mL 0.358-3.74 [facility] Platelets bldOrdered By: Bob Mcfadden on 12-11-2022 Platelets (Bld) [#/Vol] 212 10*3/uL 150-450 [facility] Protein Test strip Ql (U)Ord ered By: Georgiana Mcfadden on 12-11-2022 Protein Ql (U) Negative Negative [facility] Serum or plasma albumin flower urement (mass/volume)Ordered By: Georgiana Mcfadden on 12-11-2022 Albumin [Mass/Vol] 3.5 g/dL 3.2-5.0 [facility] Serum or plasma albumin/glob ulin mass ratioOrdered By: Georgiana Mcfadden on 12-11-2022 Albumin/Globulin [Mass ratio] 1.1 {ratio} 0.9-2.4 [facility] Serum or plasma calcium flower urement (mass/volume)Ordered By: Georgiana Mcfadden on 12-11-2022 Calcium [Mass/Vol] 8.7 mg/dL 8.5-10.1 [facility] Serum or plasma cholesterol in HDL measurement (mass/volume)Ordered By: Georgiana Mcfadden on 12-11-2022 Cholesterol in HDL [Mass/Vol] 52 mg/dL >40 [facility] Comment on above: The drugs N-Acetylcy steine and Metamizole may falsely depress this assay. Reference Range HDL <40 mg/dL Low HDL Cholesterol HDL >or= 60 mg/dL High HDL Cholesterol Serum or plasma cholesterol in VLDL measurement (mass/volume)Ordered By: Georgiana Mcfadden on 12-11-2022 Cholesterol in VLDL [Mass/Vol] 21 mg/dL 5-40 [facility] Serum or plasma creatinine m easurement (mass/volume)Ordered By: Georgiana Mcfadden on 12-11-2022 Creatinine [Mass/Vol] 1.19 mg/dL 0.70-1.30 [facility] Comment on above: The validity of the calculated GFR & GFRAA in patients over 70 years has not been determined. Clinical correlation is essential. Serum or plasma low density lipoprotein (LDL) cholesterol measurement (mass/volume)Ordered By: Georgiana Mcfadden on 12-11-2022 Cholesterol in LDL [Mass/Vol] 61 mg/dL 0-130 [facility] Serum or plasma urea nitroge n measurement (mass/volume)Ordered By: Georgiana Mcfadden on 12-11-2022 Urea nitrogen [Mass/Vol] 22 mg/dL 7-18 [facility] Serum or plasma uric acid me asurement (mass/volume)Ordered By: Georgiana Mcfadden on 12-11-2022 Urate [Mass/Vol] 4.7 mg/dL 3.5-7.2 [facility] Comment on above: The drugs N-Acetylcy steine and Metamizole may falsely depress this assay. Squamous epithelial cells de tection in urine sediment by light microscopyOrdered By: Georgiana Mcfadden on 12-11-2022 Epithelial cells.squamous LM Ql (Urine sed) 0 SEEN /hpf 0-5 [facility] Thin prep Papanicolaou smear with manual screeningOrdered By: Georgiana Mcfadden on 12-11-2022 Thin prep Papanicolaou smear with manual screening 20 U/L 15-37 [facility] Thin prep Papanicolaou smear with manual screening 6 5-15 [facility] Urine blood detectionOrdered By: Georgiana Mcfadden on 12-11-2022 RBC Ql (U) Negative Negative [facility] RBC Ql (U) 0 SEEN /hpf 0-5 [facility] Urine clarityOrdered By: Bob Mcfadden on 12-11-2022 Clarity (U) Clear Clear [facility] Urine color determinationOrd ered By: Georgiana Mcfadden on 12-11-2022 Color (U) Yellow Yellow [facility] Urine glucose detectionOrder ed By: Georgiana Mcfadden on 12-11-2022 Glucose Ql (U) Normal mg/dl Normal [facility] Urine leukocyte esterase det ection by dipstickOrdered By: Georgiana Mcfadden on 12-11-2022 Leukocyte esterase Test strip Ql (U) Negative Negative [facility] Urine pHOrdered By: Georgiana quezada on 12-11-2022 pH (U) 5.0 [pH] 5.0 - 8.0 [facility] Urine sediment bacteria coun t by microscopy (number/high power field)Ordered By: Georgiana Mcfadden on 12-11-2022 Bacteria LM.HPF (Urine sed) [#/Area] 0 /[HPF] None Seen [facility] Urine specific gravity measu rementOrdered By: Georgiana Mcfadden on 12-11-2022 Specific gravity (U) [Rel density] 1.025 1.002-1.030 [facility] Urobilinogen Auto test strip Ql (U)Ordered By: Georgiana Mcfadden on 12-11-2022 Urobilinogen Ql (U) Normal mg/dl Normal [facility] Absolute lymphocyte counton 03-24-2022 Lymphocytes Auto (Unsp spec) [#/Vol] 1.84 10*3/uL 0.83-4.51 [facility] Work Phone: [phone] Basophil percentageon 2021 Basophils/100 WBC (Bld) 1.5 % 0-1 [facility] Work Phone: [phone] Bilirubin [Mass/Vol] 1.00 mg/dL 0.20-1.00 [facility] Work Phone: [phone] Comment on above: For patients on eltr ombopag therapy, use of Dimension [place] TBIL is not recommended. Chloride [Moles/Vol] 107 mmol/L 98-107 [facility] Work Phone: [phone] Cholesterol [Mass/Vol] 158 mg/dL <200 [facility] Work Phone: Comment on above: <200 mg/dL Desirable 200-240 mg/dL Borderline >240 mg/dL High Risk Eosinophils/100 WBC (Bld) 2.2 % 0-5 [facility] Work Phone: [phone] Glucose [Mass/Vol] 88 mg/dL 74-106 [facility] Work Phone: [phone] Neutrophils (Bld) [#/Vol] 2.9 10*3/uL 2.0-7.7 [facility] Work Phone: [phone] Neutrophils/100 WBC (Bld) 53.4 % 47-70 [facility] Work Phone: [phone] Potassium [Moles/Vol] 4.1 mmol/L 3.5-5.1 [facility] Work Phone: [phone] Protein [Mass/Vol] 7.1 g/dL 6.4-8.2 [facility] Work Phone: [phone] Sodium [Moles/Vol] 140 mmol/L 136-145 [facility] Work Phone: [phone] Triglyceride [Mass/Vol] 108 mg/dL <199 [facility] Work Phone: Comment on above: The drugs N-Acetylcy steine and Metamizole may falsely depress this assay.Serum Triglycerides Reference Interval Normal <150 mg/dL Borderline high 150 - 199 mg/dL High 200 - 499 mg/dL Very High > or = 500 mg/dL WBC (Bld) [#/Vol] 5.3 10*3/uL 4.4-11.0 [facility]: Blood erythrocytes count (nu mber/volume)on 03-24-2022 RBC (Bld) [#/Vol] 5.03 10*6/uL 4.6-6.2 [facility]: Blood hemoglobin measurement (mass/volume)on 03-24-2022 Hemoglobin (Bld) [Mass/Vol] 15.2 g/dL 13.0-16.5 [facility] Work Phone: Blood lymphocytes/100 leukoc yteson 03-24-2022 Lymphocytes/100 WBC (Bld) 34.5 % 19-41 [facility] Work Phone: Blood monocytes/100 leukocyt eson 03-24-2022 Monocytes/100 WBC (Bld) 8.2 % 0-10 [facility] Work Phone: Blood platelet mean volumeon 03-24-2022 Platelet mean volume (Bld) [Entitic vol] 8.8 fL 6.2-12.0 [facility] Work Phone: Determination of erythrocyte mean corpuscular volume (MCV)on 03-24-2022 MCV (RBC) [Entitic vol] 90.3 fL 80-94 [facility] Work Phone: Hematocrit Auto (Bld) [Volum e fraction]on 03-24-2022 Hematocrit (Bld) [Volume fraction] 45.4 % 40-54 [facility] Work Phone: Laboratory - Chemistry and C hemistry - challengeon 03-24-2022 ALP [Catalytic activity/Vol] 70 U/L 45-117 [facility] Work Phone: ALT [Catalytic activity/Vol] 26 U/L 16-61 [facility] Work Phone: CO2 [Moles/Vol] 26.0 mmol/L 21.0-32.0 [facility] Work Phone: Globulin (S) [Mass/Vol] 3.3 g/dL 2.2-4.2 [facility] Work Phone: Urea nitrogen/Creatinine [Mass ratio] 21.8 mg/mg 10-20 [facility] Work Phone: Laboratory - Hematology and Cell countson 03-24-2022 Erythrocyte distribution width (RBC) [Entitic vol] 50.9 fL 35.1-43.9 [facility] Work Phone: Erythrocyte distribution width (RBC) [Ratio] 15.4 % 11.6-14.6 [facility] Work Phone: Immature granulocytes/100 WBC (Bld) 0.200 % 0.0-0.9 [facility] Work Phone: Comment on above: IG% - Immature Granu locytes (promyelocytes, myelocytes and metamyelocytes) > 1% indicates that a LEFT SHIFT is Present. MCH (RBC) [Entitic mass] 30.2 pg 27.0-32.0 [facility] Work Phone: Nucleated RBC/100 WBC (Bld) [Ratio] 0 % 0-5 [facility] Work Phone: MCHC Auto (RBC) [Mass/Vol]on 03-24-2022 MCHC (RBC) [Mass/Vol] 33.5 g/dL 32-36 [facility] Work Phone: No Panel Informationon 03-24 Prostate Specific Antigen Total 2.36 ng/mL 0.0-4.0 [facility] Work Phone: Comment on above: This test was perfor med using the TPSA assay method for [employer] [employer] system. Values obtained with differentassay methods cannot be used interchangably.When changing PSA assays in the course of monitoring apatient, additional sequential testing should be carriedout to confirm baseline values. Estimated GFR (MDRD) Amer 77 mL/min >60 [facility] Work Phone: Comment on above: GFR Calc Estimated GFR (MDRD) Non-Af Amer 64 mL/min >60 [facility] Work Phone: Comment on above: Non- GFR Calc Platelets bldon 03-24-2022 Platelets (Bld) [#/Vol] 282 10*3/uL 150-450 [facility] Work Phone: Serum or plasma albumin flower urement (mass/volume)on 03-24-2022 Albumin [Mass/Vol] 3.8 g/dL 3.2-5.0 [facility] Work Phone: Serum or plasma albumin/glob ulin mass ratioon 03-24-2022 Albumin/Globulin [Mass ratio] 1.2 {ratio} 0.9-2.4 [facility] Work Phone: Serum or plasma calcium flower urement (mass/volume)on 03-24-2022 Calcium [Mass/Vol] 9.0 mg/dL 8.5-10.1 [facility] Work Phone: Serum or plasma cholesterol in HDL measurement (mass/volume)on 03-24-2022 Cholesterol in HDL [Mass/Vol] 62 mg/dL >40 [facility] Work Phone: Comment on above: The drugs N-Acetylcy steine and Metamizole may falsely depress this assay. Reference Range HDL <40 mg/dL Low HDL Cholesterol HDL >or= 60 mg/dL High HDL Cholesterol Serum or plasma cholesterol in VLDL measurement (mass/volume)on 03-24-2022 Cholesterol in VLDL [Mass/Vol] 22 mg/dL 5-40 [facility] Work Phone: Serum or plasma creatinine m easurement (mass/volume)on 03-24-2022 Creatinine [Mass/Vol] 1.19 mg/dL 0.70-1.30 [facility] Work Phone: Comment on above: The validity of the calculated GFR & GFRAA in patients over 70 years has not been determined. Clinical correlation is essential. Serum or plasma low density lipoprotein (LDL) cholesterol measurement (mass/volume)on 03-24-2022 Cholesterol in LDL [Mass/Vol] 74 mg/dL 0-130 [facility] Work Phone: Serum or plasma urea nitroge n measurement (mass/volume)on 03-24-2022 Urea nitrogen [Mass/Vol] 26 mg/dL 7-18 [facility] Work Phone: Thin prep Papanicolaou smear with manual screeningon 03-24-2022 Thin prep Papanicolaou smear with manual screening 15 U/L 15-37 [facility] Work Phone: Thin prep Papanicolaou smear with manual screening 7 5-15 [facility] Work Phone: Absolute lymphocyte counton 10-22-2021 Lymphocytes Auto (Unsp spec) [#/Vol] 1.68 10*3/uL 0.83-4.51 [facility] Work Phone: Basophil percentageon 2021 Basophil percentage 0 SEEN /hpf [facility] Work Phone: Basophils/100 WBC (Bld) 1.3 % 0-1 [facility] Work Phone: Bilirubin [Mass/Vol] 0.90 mg/dL 0.20-1.00 [facility] Work Phone: Comment on above: For patients on eltr ombopag therapy, use of Dimension [place] TBIL is not recommended. Chloride [Moles/Vol] 107 mmol/L 98-107 [facility] Work Phone: Cholesterol [Mass/Vol] 141 mg/dL <200 [facility] Work Phone: Comment on above: <200 mg/dL Desirable 200-240 mg/dL Borderline >240 mg/dL High Risk Eosinophils/100 WBC (Bld) 2.3 % 0-5 [facility] Work Phone: Glucose [Mass/Vol] 92 mg/dL 74-106 [facility] Work Phone: [phone] Neutrophils (Bld) [#/Vol] 3.1 10*3/uL 2.0-7.7 [facility] Work Phone: [phone] Neutrophils/100 WBC (Bld) 56.5 % 47-70 [facility] Work Phone: [phone] Potassium [Moles/Vol] 3.9 mmol/L 3.5-5.1 [facility] Work Phone: Protein [Mass/Vol] 6.7 g/dL 6.4-8.2 [facility] Work Phone: [phone] Sodium [Moles/Vol] 138 mmol/L 136-145 [facility] Work Phone: Triglyceride [Mass/Vol] 123 mg/dL [facility] Work Phone: Comment on above: The drugs N-Acetylcy steine and Metamizole may falsely depress this assay.Serum Triglycerides Reference Interval Normal <150 mg/dL Borderline high 150 - 199 mg/dL High 200 - 499 mg/dL Very High > or = 500 mg/dL WBC (Bld) [#/Vol] 5.6 10*3/uL 4.4-11.0 [facility] Work Phone: Bilirubin Test strip Ql (U)o n 10-22-2021 Bilirubin Ql (U) Negative Negative [facility] Work Phone: Blood erythrocytes count (nu mber/volume)on 10-22-2021 RBC (Bld) [#/Vol] 4.90 10*6/uL 4.6-6.2 [facility] Work Phone: Blood hemoglobin measurement (mass/volume)on 10-22-2021 Hemoglobin (Bld) [Mass/Vol] 13.7 g/dL 13.0-16.5 [facility] Work Phone: Blood lymphocytes/100 leukoc yteson 10-22-2021 Lymphocytes/100 WBC (Bld) 30.3 % 19-41 [facility] Work Phone: Blood monocytes/100 leukocyt eson 10-22-2021 Monocytes/100 WBC (Bld) 9.2 % 0-10 [facility] Work Phone: Blood platelet mean volumeon 10-22-2021 Platelet mean volume (Bld) [Entitic vol] 9.0 fL 6.2-12.0 [facility] Work Phone: Determination of erythrocyte mean corpuscular volume (MCV)on 10-22-2021 MCV (RBC) [Entitic vol] 86.5 fL 80-94 [facility] Work Phone: Hematocrit Auto (Bld) [Volum e fraction]on 10-22-2021 Hematocrit (Bld) [Volume fraction] 42.4 % 40-54 [facility] Work Phone: Ketones Test strip Ql (U)on 10-22-2021 Ketones Ql (U) Negative Negative [facility] Work Phone: Laboratory - Chemistry and C hemistry - challengeon 10-22-2021 ALP [Catalytic activity/Vol] 75 U/L 45-117 [facility] Work Phone: ALT [Catalytic activity/Vol] 19 U/L 16-61 [facility] Work Phone: CO2 [Moles/Vol] 24.0 mmol/L 21.0-32.0 [facility] Work Phone: Globulin (S) [Mass/Vol] 3.2 g/dL 2.2-4.2 [facility] Work Phone: Urea nitrogen/Creatinine [Mass ratio] 14.4 mg/mg 10-20 [facility] Work Phone: Laboratory - Hematology and Cell countson 10-22-2021 Erythrocyte distribution width (RBC) [Entitic vol] 45.7 fL 35.1-43.9 [facility] Work Phone: Erythrocyte distribution width (RBC) [Ratio] 14.5 % 11.6-14.6 [facility] Work Phone: Immature granulocytes/100 WBC (Bld) 0.400 % 0.0-0.9 [facility] Work Phone: Comment on above: IG% - Immature Granu locytes (promyelocytes, myelocytes and metamyelocytes) > 1% indicates that a LEFT SHIFT is Present. MCH (RBC) [Entitic mass] 28.0 pg 27.0-32.0 [facility] Work Phone: Nucleated RBC/100 WBC (Bld) [Ratio] 0 % 0-5 [facility] Work Phone: MCHC Auto (RBC) [Mass/Vol]on 10-22-2021 MCHC (RBC) [Mass/Vol] 32.3 g/dL 32-36 [facility] Work Phone: Mucus LM Ql (Urine sed)on Mucus Ql (Urine sed) 0 SEEN /hpf [facility] Work Phone: Nitrite Test strip Ql (U)on 10-22-2021 Nitrite Ql (U) Negative Negative [facility] Work Phone: No Panel Informationon 10-22 Estimated GFR (MDRD) Amer 90 mL/min >60 [facility] Work Phone: Comment on above: GFR Calc Estimated GFR (MDRD) Non-Af Amer 75 mL/min >60 [facility] Work Phone: Comment on above: Non- GFR Calc Platelets bldon 10-22-2021 Platelets (Bld) [#/Vol] 263 10*3/uL 150-450 [facility] Work Phone: Protein Test strip Ql (U)on 10-22-2021 Protein Ql (U) Negative Negative [facility] Work Phone: Serum or plasma albumin flower urement (mass/volume)on 10-22-2021 Albumin [Mass/Vol] 3.5 g/dL 3.2-5.0 [facility] Work Phone: Serum or plasma albumin/glob ulin mass ratioon 10-22-2021 Albumin/Globulin [Mass ratio] 1.1 {ratio} 0.9-2.4 [facility] Work Phone: Serum or plasma calcium flower urement (mass/volume)on 10-22-2021 Calcium [Mass/Vol] 8.7 mg/dL 8.5-10.1 [facility] Work Phone: Serum or plasma cholesterol in HDL measurement (mass/volume)on 10-22-2021 Cholesterol in HDL [Mass/Vol] 49 mg/dL [facility] Work Phone: Comment on above: The drugs N-Acetylcy steine and Metamizole may falsely depress this assay. Reference Range HDL <40 mg/dL Low HDL Cholesterol HDL >or= 60 mg/dL High HDL Cholesterol Serum or plasma cholesterol in VLDL measurement (mass/volume)on 10-22-2021 Cholesterol in VLDL [Mass/Vol] 25 mg/dL 5-40 [facility] Work Phone: Serum or plasma creatinine m easurement (mass/volume)on 10-22-2021 Creatinine [Mass/Vol] 1.04 mg/dL 0.70-1.30 [facility] Work Phone: Comment on above: The validity of the calculated GFR & GFRAA in patients over 70 years has not been determined. Clinical correlation is essential. Serum or plasma low density lipoprotein (LDL) cholesterol measurement (mass/volume)on 10-22-2021 Cholesterol in LDL [Mass/Vol] 67 mg/dL 0-130 [facility] Work Phone: Serum or plasma urea nitroge n measurement (mass/volume)on 10-22-2021 Urea nitrogen [Mass/Vol] 15 mg/dL 7-18 [facility] Work Phone: Serum or plasma uric acid me asurement (mass/volume)on 10-22-2021 Urate [Mass/Vol] 4.5 mg/dL 3.5-7.2 [facility] Work Phone: Comment on above: The drugs N-Acetylcy steine and Metamizole may falsely depress this assay. Squamous epithelial cells de tection in urine sediment by light microscopyon 10-22-2021 Epithelial cells.squamous LM Ql (Urine sed) 0 SEEN /hpf [facility] Work Phone: Thin prep Papanicolaou smear with manual screeningon 10-22-2021 Thin prep Papanicolaou smear with manual screening 17 U/L 15-37 [facility] Work Phone: Thin prep Papanicolaou smear with manual screening 7 5-15 [facility] Work Phone: Urine blood detectionon RBC Ql (U) Negative Negative [facility] Work Phone: RBC Ql (U) 0 SEEN /hpf [facility] Work Phone: Urine clarityon 10-22-2021 Clarity (U) Clear Clear [facility] Work Phone: Urine color determinationon 10-22-2021 Color (U) Yellow Yellow [facility] Work Phone: Urine glucose detectionon Glucose Ql (U) Normal mg/dl Normal [facility] Work Phone: Urine leukocyte esterase det ection by dipstickon 10-22-2021 Leukocyte esterase Test strip Ql (U) 25 /ul Negative [facility] Work Phone: Urine pHon 10-22-2021 pH (U) 8.0 [pH] [facility] Work Phone: Urine sediment bacteria coun t by microscopy (number/high power field)on 10-22-2021 Bacteria LM.HPF (Urine sed) [#/Area] 0 /[HPF] None Seen [facility] Work Phone: Urine specific gravity measu rementon 10-22-2021 Specific gravity (U) [Rel density] 1.010 [facility] Work Phone: Urobilinogen Auto test strip Ql (U)on 10-22-2021 Urobilinogen Ql (U) Normal mg/dl Normal [facility] Work Phone: No Panel Informationon 09-19 Prostate Specific Antigen Total 10.00 ng/mL 0.0-4.0 [facility] Work Phone: Comment on above: This test was perfor med using the TPSA assay method for [employer] chemistry system. Values obtained with differentassay methods cannot be used interchangably.When changing PSA assays in the course of monitoring apatient, additional sequential testing should be carriedout to confirm baseline values. CR Chest PA/LATon 08-27-2021 CR Chest PA/LAT [facility]: [id number] ACCESSION EXAM DATE/TIME PROCEDURE ORDERING PROVIDER [id number] 08/27/2021 14:19 EDT CR Chest PA and LAT MELVA MCGOVERN, LISSETTE Quinonez CPT code 95340 Reason For Exam (CR Chest PA and [...] Transcribed Date and Time: 08/27/2021 2:48 Normal [facility] Absolute lymphocyte counton 08-08-2021 Lymphocytes Auto (Unsp spec) [#/Vol] 1.74 10*3/uL 0.83-4.51 [facility] Work Phone: [phone] Basophil percentageon 2021 Basophils/100 WBC (Bld) 1.0 % 0-1 [facility] Work Phone: Eosinophils/100 WBC (Bld) 2.8 % 0-5 [facility] Work Phone: Neutrophils (Bld) [#/Vol] 5.7 10*3/uL 2.0-7.7 [facility] Work Phone: Neutrophils/100 WBC (Bld) 64.2 % 47-70 [facility] Work Phone: [phone] WBC (Bld) [#/Vol] 8.8 10*3/uL 4.4-11.0 [facility]: [phone] Blood erythrocytes count (nu mber/volume)on 08-08-2021 RBC (Bld) [#/Vol] 4.32 10*6/uL 4.6-6.2 [facility]: [phone] Blood hemoglobin measurement (mass/volume)on 08-08-2021 Hemoglobin (Bld) [Mass/Vol] 13.2 g/dL 13.0-16.5 [facility] Work Phone: Blood lymphocytes/100 leukoc yteson 08-08-2021 Lymphocytes/100 WBC (Bld) 19.8 % 19-41 [facility] Work Phone: Blood monocytes/100 leukocyt eson 08-08-2021 Monocytes/100 WBC (Bld) 10.6 % 0-10 [facility] Work Phone: Blood platelet mean volumeon 08-08-2021 Platelet mean volume (Bld) [Entitic vol] 8.0 fL 6.2-12.0 [facility] Work Phone: Determination of erythrocyte mean corpuscular volume (MCV)on 08-08-2021 MCV (RBC) [Entitic vol] 90.5 fL 80-94 [facility] Work Phone: Hematocrit Auto (Bld) [Volum e fraction]on 08-08-2021 Hematocrit (Bld) [Volume fraction] 39.1 % 40-54 [facility] Work Phone: Laboratory - Hematology and Cell countson 08-08-2021 Erythrocyte distribution width (RBC) [Entitic vol] 43.5 fL 35.1-43.9 [facility] Work Phone: Erythrocyte distribution width (RBC) [Ratio] 13.2 % 11.6-14.6 [facility] Work Phone: Immature granulocytes/100 WBC (Bld) 1.600 % 0.0-0.9 [facility] Work Phone: Comment on above: IG% - Immature Granu locytes (promyelocytes, myelocytes and metamyelocytes) > 1% indicates that a LEFT SHIFT is Present. MCH (RBC) [Entitic mass] 30.6 pg 27.0-32.0 [facility] Work Phone: Nucleated RBC/100 WBC (Bld) [Ratio] 0 % 0-5 [facility] Work Phone: MCHC Auto (RBC) [Mass/Vol]on 08-08-2021 MCHC (RBC) [Mass/Vol] 33.8 g/dL 32-36 [facility] Work Phone: Platelets bldon 08-08-2021 Platelets (Bld) [#/Vol] 584 10*3/uL 150-450 [facility] Work Phone: Clinical Lists Update: Prelo ad Extendedon 08-07-2021 Tobacco smoking status Tobacco smoking status Invalid Interpretation Code [facility] Work Phone: Clinical Summary: Chase leo 08-07-2021 MC25 OP Hand Invalid Interpretation Code [facility] Work Phone: Clinical Summary: Scanned Ibrahima story Summaryon 08-07-2021 adl form etoh alcohol performance wine Invalid Interpretation Code [facility] Work Phone: Beta HCG ( test) Ql (U) Never Invalid Interpretation Code [facility] Work Phone: brother(s) of patient alive or I do not have any brothers. My brother(s)' health history is unknown. Invalid Interpretation Code [facility] Work Phone: cause of , father cardiac arrest Invalid Interpretation Code [facility] Work Phone: cause of , mother child Invalid Interpretation Code [facility] Work Phone: consumes three or more drinks of alcohol (beer, wine, liquor) daily or almost daily 1 drink per day Invalid Interpretation Code [facility] Work Phone: Data entered by patient exercise frequency 5 days per week Invalid Interpretation Code [facility] Work Phone: Data entered by patient exercise type walking, cycling, other Invalid Interpretation Code [facility] Work Phone: data entered by patient, alcohol (ethanol or ETOH) use Yes Invalid Interpretation Code [facility] Work Phone: Data entered by patient, allergy list I don't have any Drug Allergies Invalid Interpretation Code [facility] Work Phone: data entered by patient, drug (of abuse) use No Invalid Interpretation Code [facility] Work Phone: data entered by patient, Employer Name retired Invalid Interpretation Code [facility] Work Phone: data entered by patient, exercise history Yes Invalid Interpretation Code [facility] Work Phone: data entered by patient, father's medical history Gout Heart disease High blood pressure Kidney disease Invalid Interpretation Code [facility] Work Phone: Data entered by patient, history of past surgeries Abdominal Surgery Appendectomy Hernia repair Thoracic spine surgery other Invalid Interpretation Code [facility] Work Phone: data entered by patient, maternal family history unknown My mother's health history is unknown Invalid Interpretation Code [facility] Work Phone: Data entered by patient, medication list hmliqflyczu-770-5-kelly ly atorvastatin lfmfrza-79-0-daily hydrochlorothiazide and nmxwzzsjzdb-59-8-traci y lyphadcnst-07-1-daily flomax-.4-1-daily centrum eqbcxr-3-5-daily lvaudp-836-9-ss needed Invalid Interpretation Code [facility] Work Phone: data entered by patient, past medical history GERD Gout High blood pressure High cholesterol Irritable bowel syndrome Sleep apnea Invalid Interpretation Code [facility] Work Phone: data entered by patient, social history, current smoker former smoker Invalid Interpretation Code [facility] Work Phone: data entered by patient, social history, marital status Invalid Interpretation Code [facility] Work Phone: father of patient is alive or Invalid Interpretation Code [facility] Work Phone: Housing Type: apartment, house, custodial, trailer, none house Invalid Interpretation Code [facility] Work Phone: housing unit size (asthma environmental history, housing) (from single family to don't know) 2 floors Invalid Interpretation Code [facility] Work Phone: medical history of patient's sister Cancer COPD Invalid Interpretation Code [facility] Work Phone: mother of patient is alive or Invalid Interpretation Code [facility] Work Phone: Number of dependent children No Invalid Interpretation Code [facility] Work Phone: Absolute lymphocyte counton 07-30-2021 Lymphocytes Auto (Unsp spec) [#/Vol] 1.08 10*3/uL 0.83-4.51 [facility] Work Phone: [phone] Basophil percentageon 2021 Basophils/100 WBC (Bld) 0.3 % 0-1 [facility] Work Phone: [phone] Chloride [Moles/Vol] 107 mmol/L 98-107 [facility] Work Phone: [phone] Eosinophils/100 WBC (Bld) 0.1 % 0-5 [facility] Work Phone: Glucose [Mass/Vol] 124 mg/dL 74-106 [facility] Work Phone: [phone] Comment on above: Fasting Glucose resu lt from 100 to 125 mg/dL suggests IMPAIRED HOMEOSTASIS per A.D.A. criteria. Neutrophils (Bld) [#/Vol] 6.0 10*3/uL 2.0-7.7 [facility] Work Phone: [phone] Neutrophils/100 WBC (Bld) 78.1 % 47-70 [facility] Work Phone: [phone] Potassium [Moles/Vol] 3.7 mmol/L 3.5-5.1 [facility] Work Phone: [phone] Sodium [Moles/Vol] 139 mmol/L 136-145 [facility] Work Phone: WBC (Bld) [#/Vol] 7.7 10*3/uL 4.4-11.0 [facility] Work Phone: Blood erythrocytes count (nu mber/volume)on 07-30-2021 RBC (Bld) [#/Vol] 4.03 10*6/uL 4.6-6.2 [facility] Work [facility]: Blood hemoglobin measurement (mass/volume)on 07-30-2021 Hemoglobin (Bld) [Mass/Vol] 12.4 g/dL 13.0-16.5 [facility] Work Phone: Blood lymphocytes/100 leukoc yteson 07-30-2021 Lymphocytes/100 WBC (Bld) 14.1 % 19-41 [facility] Work Phone: Blood monocytes/100 leukocyt eson 07-30-2021 Monocytes/100 WBC (Bld) 6.9 % 0-10 [facility] Work Phone: Blood platelet mean volumeon 07-30-2021 Platelet mean volume (Bld) [Entitic vol] 8.8 fL 6.2-12.0 [facility] Work Phone: Determination of erythrocyte mean corpuscular volume (MCV)on 07-30-2021 MCV (RBC) [Entitic vol] 85.4 fL 80-94 [facility] Work Phone: Hematocrit Auto (Bld) [Volum e fraction]on 07-30-2021 Hematocrit (Bld) [Volume fraction] 34.4 % 40-54 [facility] Work Phone: Laboratory - Chemistry and C hemistry - challengeon 07-30-2021 CO2 [Moles/Vol] 27.0 mmol/L 21.0-32.0 [facility] Work Phone: Urea nitrogen/Creatinine [Mass ratio] 12.2 mg/mg 10-20 [facility] Work Phone: Laboratory - Hematology and Cell countson 07-30-2021 Erythrocyte distribution width (RBC) [Entitic vol] 44.3 fL 35.1-43.9 [facility] Work Phone: Erythrocyte distribution width (RBC) [Ratio] 14.2 % 11.6-14.6 [facility] Work Phone: Immature granulocytes/100 WBC (Bld) 0.500 % 0.0-0.9 [facility] Work Phone: Comment on above: IG% - Immature Granu locytes (promyelocytes, myelocytes and metamyelocytes) > 1% indicates that a LEFT SHIFT is Present. MCH (RBC) [Entitic mass] 30.8 pg 27.0-32.0 [facility] Work Phone: Nucleated RBC/100 WBC (Bld) [Ratio] 0 % 0-5 [facility] Work Phone: MCHC Auto (RBC) [Mass/Vol]on 07-30-2021 MCHC (RBC) [Mass/Vol] 36.0 g/dL 32-36 [facility] Work Phone: No Panel Informationon 07-30 Estimated Creatinine Clearance Calc 64.67 ml/min [facility] Work Phone: Estimated GFR (MDRD) Amer 81 mL/min >60 [facility] Work Phone: Comment on above: GFR Calc Estimated GFR (MDRD) Non-Af Amer 67 mL/min >60 [facility] Work Phone: Comment on above: Non- GFR Calc Platelets bldon 07-30-2021 Platelets (Bld) [#/Vol] 174 10*3/uL 150-450 [facility] Work Phone: Serum or plasma calcium flower urement (mass/volume)on 07-30-2021 Calcium [Mass/Vol] 8.1 mg/dL 8.5-10.1 [facility] Work Phone: Serum or plasma creatinine m easurement (mass/volume)on 07-30-2021 Creatinine [Mass/Vol] 1.15 mg/dL 0.70-1.30 [facility] Work Phone: Comment on above: The validity of the calculated GFR & GFRAA in patients over 70 years has not been determined. Clinical correlation is essential. Serum or plasma urea nitroge n measurement (mass/volume)on 07-30-2021 Urea nitrogen [Mass/Vol] 14 mg/dL 7-18 [facility] Work Phone: Thin prep Papanicolaou smear with manual screeningon 07-30-2021 Thin prep Papanicolaou smear with manual screening 5 5-15 [facility] Work Phone: Basic Metabolic Panelon 09-15 Calcium [Mass/Vol] 9.5 mg/dL Normal 8.4-10.4 [facility] Comment on above: Performed By: #### B MP3M ####[facility] [employer] [id number] [place], [place] Anion gap [Moles/Vol] 10 mmol/L Normal 3-13 [facility] Comment on above: Performed By: #### B MP3M ####[facility] [employer] [id number], [place] CO2 [Moles/Vol] 27 mmol/L Normal 22-30 [facility] Comment on above: Performed By: #### B MP3M ####[facility] [employer] [id number] [place], [place] Creatinine [Mass/Vol] 0.87 mg/dL Normal 0.52-1.25 [facility] Comment on above: Performed By: #### B MP3M ####[employer] [address], [place] GFR/1.73 sq M.predicted among blacks MDRD (S/P/Bld) [Vol rate/Area] mL/min/{1.73_m2} Normal >60 [facility] Comment on above: Performed By: #### B MP3M ####[id number] [place], [place] GFR/1.73 sq M.predicted among non-blacks MDRD (S/P/Bld) [Vol rate/Area] 87.0 mL/min/{1.73_m2} Normal >[address] [facility] Comment on above: Result Comment: [...] creatinine secretion. Performed By: #### B MP3M ####[id number] [place], [place] Glucose [Mass/Vol] 90 mg/dL Normal 70-100 [facility] Comment on above: Performed By: #### B MP3M ####[address] Urea nitrogen [Mass/Vol] 22 mg/dL High 7-20 [facility] Comment on above: Performed By: #### B MP3M ####[address] Chloride [Moles/Vol] 103 mmol/L Normal 98-107 [facility] Comment on above: Performed By: #### B MP3M ####[address] Potassium [Moles/Vol] 4.4 mmol/L Normal 3.5-5.1 [facility] Comment on above: Result Comment: Slig htly hemolysed, interpret with caution. Performed By: #### B MP3M ####[id number] [place], [place] Sodium [Moles/Vol] 140 mmol/L Normal 135-145 [facility] Comment on above: Performed By: #### B MP3M ####[address] [id number] Basic Metabolic Panel w/ Ref ken[place] to [...] mg/dL [facility] Work Phone: EGFR IF NonAfrican Citizen Of [place] 87.0 mL/min >60 [facility] Work Phone: Comment [...] [Moles/Vol] 4.4 mmol/L 3.5 - 5.1 mmol/L [employer] Work Phone: Comment on above: Slightly hemolysed, interpret with caution. Sodium [Moles/Vol] 140 mmol/L 135 - 145 mmol/L [employer] Work Phone: Urea nitrogen (BldV) [Mass/Vol] 22 mg/dL High 7 - 20 mg/dL [employer] Work Phone: Test Performed by [facility], [address] [place] [id number] [employer] Work Phone: CBCOrdered By: Brad Moralez on 09-26-2020 Hematocrit (Bld) [Volume fraction] 41.5 % 40.0 - 52.0 % [employer] Work Phone: Hemoglobin.gastrointesti nal spec 1 Ql (Stl) 13.8 g/dL 13.0 - 18.0 g/dL [employer] Work Phone: Interpretation and review of laboratory results Abnormal [employer] Work Phone: MCH (RBC) [Entitic mass] 27.9 pg 26. 0 - 34.0 pg [employer] Work Phone: MCHC (RBC) [Mass/Vol] 33.4 % 32.0 - 36.0 % [employer] Phone: MCV (RBC) [Entitic vol] 83.7 fL 80.0 - 98.0 fL [employer] Work Phone: Platelet distribution width (Bld) [Ratio] 16.4 % High 11.5 - 14.5 % [employer] Work Phone: Platelet mean volume (Bld) [Entitic vol] 7.0 fL Low 7.4 - 10.4 fL [employer] Work Phone: Platelets (Bld) [#/Vol] 359 10*3/uL 140 - 440 10*3/uL [employer] Work Phone: RBC (Bld) [#/Vol] 4.96 10*6/uL 4.40 - 5.9 0 10*6/uL [employer] Work Phone: WBC (Bld) [#/Vol] 9.9 10*3/uL 3.6 - 10.7 10*3/uL [employer] Work Phone: Test Performed by [facility], [address] [place] [id number] [employer] Work Phone: CR Chest Portableon 09-27-19 21 CR Chest Portable Patient Name: SUZETTE PALOMINO Diagnostic Radiology ACCESSION EXAM DATE/TIME PROCEDURE ORDERING PROVIDER [id number] 09/26/2020 07:14 EDT CR Chest Portable MD MORALEZ KEVIN CPT code 69292 Reason For Exam (CR Chest Portable) s/p [...] Transcribed Date and Time: 09/26/2020 9:02 Normal [facility] Hemogramon 09-26-2020 Erythrocyte distribution width (RBC) [Ratio] 16.4 % High 11.5-14.5 [facility] Comment on above: Performed By: #### H EMOG #### [facility] [address] [place], [place] Hematocrit (Bld) [Volume fraction] 41.5 % Normal 40.0-52.0 [facility] Comment on above: Performed By: #### H EMOG #### [facility] [address] [place], [place] Hemoglobin (Bld) [Mass/Vol] 13.8 g/dL Normal 13.0-18.0 [facility] Comment on above: Performed By: #### H EMOG #### [address] [address] [place], [place] MCH (RBC) [Entitic mass] 27.9 pg Normal 26.0-34.0 [facility] Comment on above: Performed By: #### H EMOG #### [place] [address] [address] [place], [place] MCHC 33.4 % Normal 32.0-36.0 [facility] Comment on above: Performed By: #### H EMOG #### [place] [address] [address] [place], [place] MCV (RBC) [Entitic vol] 83.7 fL Normal 80.0-98.0 S [facility] Comment on above: Performed By: #### H EMOG #### [place] [address] [address] [place], [place] Platelet mean volume (Bld) [Entitic vol] 7.0 fL Low 7.4-10.4 [facility] Comment on above: Performed By: #### H EMOG #### [place] [address] [address] [place], [place] Platelets (Bld) [#/Vol] 359 10*3/uL Normal 140-440 [facility] Comment on above: Performed By: #### H EMOG #### [place] [address] [address] [place], [place] RBC (Bld) [#/Vol] 4.96 10*6/uL Normal 4.40-5.90 [facility] Comment on above: Performed By: #### H EMOG #### [facility] [facility] [address] [place] [address] WBC (Bld) [#/Vol] 9.9 10*3/uL Normal 3.6-10.7 [facility] Comment on above: Performed By: #### H EMOG #### [facility] [address] [place] [address] XR CHEST PORTABLEOrdered By: Brad Moralez on 09-26-2020 Patient Name: SUZETTE PALOMINO Diagnostic Radiology ACCESSION EXAM DATE/TIME PROCEDURE ORDERING PROVIDER [id number] 09/26/2020 07:14 EDT CR Chest Portable MD MORALEZ KEVIN CPT code 40650 Reason For Exam (CR Chest Portable) s/p [...] Transcribed Date and Time: 09/26/2020 9:02 [facility] Work Phone: Stu, [facility] Incoming Radiology Results From [employer] - 09/26/2020 9:07 AM EDT Patient [facility]: [id number] Radiology ACCESSION EXAM DATE/TIME PROCEDURE ORDERING PROVIDER [id number] 09/26/2020 07:14 EDT CR Chest Portable MD MORALEZ KEVIN CPT code 25181 Reason For Exam (CR Chest Portable) s/p [...] Transcribed Date and Time: 09/26/2020 9:02 [facility] Work Phone: Basic Metabolic PanelOrdered By: Brad Moralez on 09-25-2020 Anion gap [Moles/Vol] 9 mmol/L Normal 3-13 [facility] [place] Work Phone: Comment on above: Performed By: #### P HOS3, MG3, BMP3M, HEMOG #### [address] [address] Calcium [Mass/Vol] 9.2 mg/dL Normal 8.4-10.4 [facility] Work Phone: Comment on above: Performed By: #### P HOS3, MG3, BMP3M, HEMOG #### [facility] [address] [place], [place] CO2 [Moles/Vol] 25 mmol/L Normal 22-30 [facility] Work Phone: Comment on above: Performed By: #### P HOS3, MG3, BMP3M, HEMOG #### [facility] [place] [place], [place] Glucose [Mass/Vol] 159 mg/dL High 70-100 [facility] Work Phone: Comment on above: Performed By: #### P HOS3, MG3, BMP3M, HEMOG #### [facility] [place] Creatinine [Mass/Vol] 0.79 mg/dL Normal 0.52-1.25 [facility] Work Phone: Comment on above: Performed By: #### P HOS3, MG3, BMP3M, HEMOG #### [facility] [place] [place], [place] GFR/1.73 sq M.predicted among blacks MDRD (S/P/Bld) [Vol rate/Area] mL/min/{1.73_m2} Normal >60 [facility] Work Phone: Comment on above: Performed By: #### P HOS3, MG3, BMP3M, HEMOG #### [facility] [place] [place] Potassium [Moles/Vol] 3.9 mmol/L Normal 3.5-5.1 [facility] [place] Work Phone: Comment on above: Performed By: #### P HOS3, MG3, BMP3M, HEMOG #### [facility] [place] Sodium [Moles/Vol] 135 mmol/L Normal 135-145 [facility] Work Phone: Comment on above: Performed By: #### P HOS3, MG3, BMP3M, HEMOG #### [facility] [employer] [place] [address] [address] [place], [place] Chloride [Moles/Vol] 101 mmol/L Normal 98-107 [facility] Work Phone: Comment on above: Performed By: #### P HOS3, MG3, BMP3M, HEMOG #### [facility] [employer] [place] [address] [place] [place], [place] Basic Metabolic Panelon 09-15 Urea nitrogen [Mass/Vol] 19 mg/dL Normal 7-20 [facility] Comment on above: Performed By: #### P HOS3, MG3, BMP3M, HEMOG #### [facility] [employer] [place] [address] [place] [place], [place] eGFR OTHER > 90.0 Normal >60 [facility] Comment on above: Result Comment: KDIG [...] #### P HOS3, MG3, BMP3M, HEMOG #### [facility] [employer] [place] [address] [place] [place], [place] Basic Metabolic Panel w/ Ref kenya to MGOrdered By: Brad Moralez on 09-25-2020 EGFR IF NonAfrican Citizen Of [place] >90.0 >60 mL/min [facility] Work Phone: Comment on above: KDIGO guidelines [...] [Mass/Vol] 19 mg/dL 7 - 20 mg/dL [employer] Work Phone: CBCOrdered By: Brad Moralez on 09-25-2020 Hematocrit (Bld) [Volume fraction] 38.3 % Low 40.0 - 52.0 % [employer] Work Phone: Hemoglobin.gastrointesti nal spec 1 Ql (Stl) 13.2 g/dL 13.0 - 18.0 g/dL [employer] Work Phone: MCH (RBC) [Entitic mass] 27.7 pg 26. 0 - 34.0 pg [employer] Work Phone: MCHC (RBC) [Mass/Vol] 34.5 % 32.0 - 36.0 % [employer] Work Phone: MCV (RBC) [Entitic vol] 80.3 fL 80.0 - 98.0 fL [employer] Work Phone: Platelet distribution width (Bld) [Ratio] 16.3 % High 11.5 - 14.5 % [employer] Work Phone: Platelet mean volume (Bld) [Entitic vol] 6.4 fL Low 7.4 - 10.4 fL [employer] Work Phone: Platelets (Bld) [#/Vol] 303 10*3/uL 140 - 440 10*3/uL [employer] Work Phone: RBC (Bld) [#/Vol] 4.77 10*6/uL 4.40 - 5.9 0 10*6/uL [employer] Work Phone: WBC (Bld) [#/Vol] 8.5 10*3/uL 3.6 - 10.7 10*3/uL [employer] Work Phone: CR Chest Portableon 09-26-19 21 CR Chest Portable Patient Name: SUZETTE PALOMINO Diagnostic Radiology ACCESSION EXAM DATE/TIME PROCEDURE ORDERING PROVIDER [id number] 09/25/2020 05:59 EDT CR Chest Portable MD MORALEZ KEVIN CPT code 54307 Reason For Exam (CR Chest Portable) s/p [...] Transcribed Date and Time: 09/25/2020 7:58 Normal [facility] Hemogramon 09-25-2020 Erythrocyte distribution width (RBC) [Ratio] 16.3 % High 11.5-14.5 [facility] Comment on above: Performed By: #### P HOS3, MG3, BMP3M, HEMOG #### [place] [address] [address] [place], [place] Hematocrit (Bld) [Volume fraction] 38.3 % Low 40.0-52.0 [facility] Comment on above: Performed By: #### P HOS3, MG3, BMP3M, HEMOG #### [place] [address] [place], [place] Hemoglobin (Bld) [Mass/Vol] 13.2 g/dL Normal 13.0-18.0 [facility] Comment on above: Performed By: #### P HOS3, MG3, BMP3M, HEMOG #### [address] MCH (RBC) [Entitic mass] 27.7 pg Normal 26.0-34.0 [facility] Comment on above: Performed By: #### P HOS3, MG3, BMP3M, HEMOG #### [address] MCHC 34.5 % Normal 32.0-36.0 [facility] Comment on above: Performed By: #### P HOS3, MG3, BMP3M, HEMOG #### [address] MCV (RBC) [Entitic vol] 80.3 fL Normal 80.0-98.0 S [facility] Comment on above: Performed By: #### P HOS3, MG3, BMP3M, HEMOG #### [address] Platelet mean volume (Bld) [Entitic vol] 6.4 fL Low 7.4-10.4 [facility] Comment on above: Performed By: #### P HOS3, MG3, BMP3M, HEMOG #### [address] Platelets (Bld) [#/Vol] 303 10*3/uL Normal 140-440 [facility] Comment on above: Performed By: #### P HOS3, MG3, BMP3M, HEMOG #### [facility] [address], [place] RBC (Bld) [#/Vol] 4.77 10*6/uL Normal 4.40-5.90 [facility] Comment on above: Performed By: #### P HOS3, MG3, BMP3M, HEMOG #### [address] WBC (Bld) [#/Vol] 8.5 10*3/uL Normal 3.6-10.7 [facility] Comment on above: Performed By: #### P HOS3, MG3, BMP3M, HEMOG #### [address] Leukodepleted Red Cellson Leukodepleted Red Cells Leukodepleted Re d Cells: [id number] released 09/25/20 07:30 JMV Unit Blood Type: O Unit Blood Rh: POS Blood Product Code: LP1 Unit Number: [id number] Unit Status: released Barcoded Unit Number: =[id number] Barcoded Product Code: = Barcoded ABO/Rh: =%5100 Unit Expiration: [id number] Leukodepleted Red Cells: [id number] released 09/25/20 07:30 [facility] Unit Blood Type: O Unit Blood Rh: POS Blood Product Code: LP1 Unit Number: [id number] Unit Status: released Barcoded Unit Number: =[id number] Barcoded Product Code: = Barcoded ABO/Rh: =%5100 Unit Expiration: [id number] Unit Volume Transfused: 0 Unit Transfusion Start Date/Time: Unit Transfusion End Date/Time: Normal [facility] Comment on above: Performed By: #### L RC ####[place] [address]#### TSGL ####[facility] MagnesiumOrdered By: Brad Ashraf on 09-25-2020 Magnesium [Mass/Vol] 1.8 mg/dL Normal 1.6-2.3 [facility] Work Phone: Comment on above: Performed By: #### P HOS3, MG3, BMP3M, HEMOG #### [facility] [address] [place] [phone] No Panel InformationOrdered By: Brad Moralez on 09-25-2020 Interpretation and review of laboratory results Abnormal [facility] Work Phone: Test Performed by [facility], [address] [place] [address] [facility] Work Phone: PhosphorusOrdered By: Brad Moralez on 09-25-2020 Phosphate [Mass/Vol] 2.9 mg/dL Normal 2.5-4.5 [facility] [employer] Work Phone: Comment on above: Performed By: #### P HOS3, MG3, BMP3M, HEMOG #### [facility] [address] [place] [address] XR CHEST PORTABLEOrdered By: Brad Moralez on 09-25-2020 Patient Name: SUZETTE PALOMINO Diagnostic Radiology ACCESSION EXAM DATE/TIME PROCEDURE ORDERING PROVIDER [id number] 09/25/2020 05:59 EDT CR Chest Portable MD MORALEZ KEVIN CPT code 90530 Reason For Exam (CR Chest Portable) s/p [...] Dictated: 09/25/2020 7:58 am Dictating Physician: DO CARWTRIGHT ANTHONY Signed Date and Time: 09/25/2020 7:59 am Signed by: DO CARTWRIGHT ANTHONY Transcribed Date and Time: 09/25/2020 7:58 [facility] Work Phone: Stu, [facility] Incoming Rad[facility] Results From [facility] - 09/25/2020 8:00 AM EDT Patient Name: SUZETTE PALOMINO Diagnostic Radiology ACCESSION EXAM DATE/TIME PROCEDURE ORDERING PROVIDER [id number] 09/25/2020 05:59 EDT CR Chest Portable MD MORALEZ KEVIN CPT code 40653 Reason For Exam (CR Chest Portable) s/p [...] (Stl) 14.9 g/dL 13.0 - 18.0 g/dL [employer] Work Phone: Interpretation and review of laboratory results Abnormal [employer] Work Phone: MCH (RBC) [Entitic mass] 27.8 pg 26. 0 - 34.0 pg [employer] Work Phone: MCHC (RBC) [Mass/Vol] 33.8 % 32.0 - 36.0 % [employer] Work Phone: MCV (RBC) [Entitic vol] 82.1 fL 80.0 - 98.0 fL [employer] Work Phone: Platelet distribution width (Bld) [Ratio] 16.3 % High 11.5 - 14.5 % [employer] Work Phone: Platelet mean volume (Bld) [Entitic vol] 6.5 fL Low 7.4 - 10.4 fL [employer] Work Phone: Platelets (Bld) [#/Vol] 316 10*3/uL 140 - 440 10*3/uL [employer] Work Phone: RBC (Bld) [#/Vol] 5.37 10*6/uL 4.40 - 5.9 0 10*6/uL [employer] Work Phone: WBC (Bld) [#/Vol] 6.5 10*3/uL 3.6 - 10.7 10*3/uL [employer] Work Phone: Test Performed by [facility], [address] [place] [address] [employer] Work Phone: CR Chest Portableon 09-25-19 21 CR Chest Portable Patient Name: SUZETTE PALOMINO Diagnostic Radiology ACCESSION EXAM DATE/TIME PROCEDURE ORDERING PROVIDER [id number] 09/24/2020 17:42 EDT CR Chest Portable MD MORALEZ KEVIN CPT code 88080 Reason For Exam (CR Chest Portable) s/p [...] Transcribed Date and Time: 09/24/2020 5:20 Normal [facility] Hemoglobin A1Con 09-24-2020 Glucose [Mass/Vol] 117 mg/dL Normal [facility] Comment on above: Performed By: #### H A1C2, HEMOG ####[facility] [employer] [place] [address] HbA1c (Bld) [Mass fraction] 5.7 % Abnormal [facility] Comment on above: Result Comment: Norm al less than 5.7% Prediabetes 5.7% to 6.4% Diabetes 6.5% or higher --HgbA1C levels may not be accurate in patients who have renal disease, received recent blood transfusions, are anemic, or who have dyshemoglobinemia. Performed By: #### H A1C2, HEMOG ####[facility] [place] [address] Hemoglobin [id number] By: St sanchez Lou on 09-24-2020 HbA1c (Bld) [Mass fraction] 5.7 % Abnormal [facility] Work Phone: Comment on above: Normal less than 5.7 % Prediabetes 5.7% to 6.4% Diabetes 6.5% or higher --HgbA1C levels may not be accurate in patients who have renal disease, received recent blood transfusions, are anemic, or who have dyshemoglobinemia. Interpretation and review of laboratory results Abnormal [facility] Work Phone: Magnesium [Mass/Vol] 117 mg/dL [facility] Work Phone: Test Performed by [facility], [facility] [place] [address] [facility] Work Phone: Hemogramon 09-24-2020 Erythrocyte distribution width (RBC) [Ratio] 16.3 % High 11.5-14.5 [facility] Comment on above: Performed By: #### H A1C2, HEMOG ####[place] [address] [place], [place] Hematocrit (Bld) [Volume fraction] 44.1 % Normal 40.0-52.0 [facility] Comment on above: Performed By: #### H A1C2, HEMOG ####[place] [address] [place], [place] Hemoglobin (Bld) [Mass/Vol] 14.9 g/dL Normal 13.0-18.0 [facility] Comment on above: Performed By: #### H A1C2, HEMOG ####[place] [address] [place], [place] MCH (RBC) [Entitic mass] 27.8 pg Normal 26.0-34.0 [facility] Comment on above: Performed By: #### H A1C2, HEMOG ####[place] [address] [place], [place] MCHC 33.8 % Normal 32.0-36.0 [facility] Comment on above: Performed By: #### H A1C2, HEMOG ####[place] [address] [place], [place] MCV (RBC) [Entitic vol] 82.1 fL Normal 80.0-98.0 [facility] Comment on above: Performed By: #### H A1C2, HEMOG ####[place] [place], [place] Platelet mean volume (Bld) [Entitic vol] 6.5 fL Low 7.4-10.4 [facility] Comment on above: Performed By: #### H A1C2, HEMOG ####[place] [address] [place], [place] Platelets (Bld) [#/Vol] 316 10*3/uL Normal 140-440 [facility] Comment on above: Performed By: #### H A1C2, HEMOG ####[place] [address] [place], [place] RBC (Bld) [#/Vol] 5.37 10*6/uL Normal 4.40-5.90 [facility] Comment on above: Performed By: #### H A1C2, HEMOG ####[place] [address] [place], [place] WBC (Bld) [#/Vol] 6.5 10*3/uL Normal 3.6-10.7 [facility] Comment on above: Performed By: #### H A1C2, HEMOG ####[place] [address] [place], [place] Op Noteon 09-24-2020 Op Note PATIENT: [...] not feel any lung masses either. A 24-German Wilder drain was placed in the chest [...] Heart and Lung unit. [employer] Job ID: [id number] Brad Gama MD DOD:09/24/2020 04:34 P MUNA/oni DOT:09/24/2020 05:30 P Job Number: [id number] Document Number: [id number] cc: Brad Gama MD [facility] [address] [place] [address] [address] [place] [id number] Normal [facility] XR CHEST PORTABLEOrdered By: Brad Moralez on 09-24-2020 Patient Name: SUZETTE PALOMINO Diagnostic Radiology ACCESSION EXAM DATE/TIME PROCEDURE ORDERING PROVIDER [id number] 09/24/2020 17:42 EDT CR Chest Portable MD MORALEZ KEVIN CPT code 97396 Reason For Exam (CR Chest Portable) s/p [...] R Transcribed Date and Time: 09/24/2020 5:20 [facility] Work Phone: [facility] Incoming Radiology Results From [facility] - 09/24/2020 5:42 PM EDT Patient Name: SUZETTE PALOMINO Diagnostic Radiology ACCESSION EXAM DATE/TIME PROCEDURE ORDERING PROVIDER [id number] 09/24/2020 17:42 EDT CR Chest Portable MD MORALEZ KEVIN CPT code 49496 Reason For Exam (CR Chest Portable) s/p [...] R Transcribed Date and Time: 09/24/2020 5:20 [facility] Work Phone: CR Chest PA/LATon 09-20-2020 CR Chest PA/LAT Patient [facility]: [id number] Radiology ACCESSION EXAM DATE/TIME PROCEDURE ORDERING PROVIDER [id number] 09/20/2020 15:38 EDT CR Chest PA and LAT [id number] -SHASHANK UMANZOR CPT code 57833 Reason For Exam (CR Chest PA and LAT) preoperative evaluation Report CHEST X-RAY PA and lateral CLINICAL INDICATION: Preoperative examination PA and lateral radiographs of the chest were obtained. COMPARISON: None FINDINGS: The cardiac silhouette is within normal limits. Volume loss of the right lung with associated atelectasis/unix architect ural distortion. A small right pleural effusion may be present. No left-sided pleural effusion or focal consolidation is seen within the lungs. No pneumothorax is identified. Degenerative changes of the thoracic spine are noted. IMPRESSION: Volume loss of the right lung with associated atelectasis/unix architect ural distortion. A small right pleural effusion may be present. Report Dictated on Final Dictated: 09/20/2020 3:58 pm Dictating Physician: MD MCDONALD JASON Signed Date and Time: 09/20/2020 3:59 pm Signed by: MD MCDONALD JASON Transcribed Date and Time: 09/20/2020 3:58 Normal [facility] Comp Metabolic Panelon 09-20 ALP [Catalytic activity/Vol] 85 U/L Normal 38-126 [facility] Comment on above: Performed By: #### C MP3, MG3, HA1C2 #### [facility] [address] [place], [place] ALT [Catalytic activity/Vol] 15 U/L Normal 0-49 [facility] Comment on above: Result Comment: The ALT test is performed by an updated assay method. Please note that the reference intervals have been changed and are now sex specific. Performed By: #### C MP3, MG3, HA1C2 #### [place] [address] [address] [place], [place] AST [Catalytic activity/Vol] 34 U/L Normal 15-46 [facility] Comment on above: Performed By: #### C MP3, MG3, HA1C2 #### [place] [address] [address] [place], [place] Calcium [Mass/Vol] 9.4 mg/dL Normal 8.4-10.4 [facility] Comment on above: Performed By: #### C MP3, MG3, HA1C2 #### [place] [address] [place] [place], [place] Glucose [Mass/Vol] 91 mg/dL Normal 70-100 [facility] Comment on above: Performed By: #### C MP3, MG3, HA1C2 #### [facility] [address] [place], [place] Urea nitrogen [Mass/Vol] 18 mg/dL Normal 7-20 [facility] Comment on above: Performed By: #### C MP3, MG3, HA1C2 #### [facility] [address] [place], [place] Anion gap [Moles/Vol] 8 mmol/L Normal 3-13 [facility] Comment on above: Performed By: #### C MP3, MG3, HA1C2 #### [place] [address] [address] [place], [place] Bilirubin [Mass/Vol] 0.9 mg/dL Normal 0.2-1.3 [facility] Comment on above: Performed By: #### C MP3, MG3, HA1C2 #### [address] CO2 [Moles/Vol] 28 mmol/L Normal 22-30 [facility] Comment on above: Performed By: #### C MP3, MG3, HA1C2 #### [place] [address] [place], [place] Creatinine [Mass/Vol] 0.99 mg/dL Normal 0.52-1.25 [facility] Comment on above: Performed By: #### C MP3, MG3, HA1C2 #### [address] GFR/1.73 sq M.predicted among blacks MDRD (S/P/Bld) [Vol rate/Area] 88.6 mL/min/{1.73_m2} Normal >[address] [facility] Comment on above: Performed By: #### C MP3, MG3, HA1C2 #### [address] GFR/1.73 sq M.predicted among non-blacks MDRD (S/P/Bld) [Vol rate/Area] 76.5 mL/min/{1.73_m2} Normal >[address] [facility] Comment on above: Result Comment: [...] By: #### C MP3, MG3, HA1C2 #### [place] [address] [place] [place], [place] Protein [Mass/Vol] 7.7 g/dL Normal 6.3-8.2 [facility] Comment on above: Performed By: #### C MP3, MG3, HA1C2 #### [place] [address] [address] [place], [place] Potassium [Moles/Vol] 3.8 mmol/L Normal 3.5-5.1 [facility] Comment on above: Performed By: #### C MP3, MG3, HA1C2 #### [place] [address] [place], [place] Sodium [Moles/Vol] 139 mmol/L Normal 135-145 [facility] Comment on above: Performed By: #### C MP3, MG3, HA1C2 #### [place] [address] [address] [place], [place] Albumin [Mass/Vol] 4.4 g/dL Normal 3.5-5.0 [facility] Comment on above: Performed By: #### C MP3, MG3, HA1C2 #### [place] [address] [place], [place] Chloride [Moles/Vol] 103 mmol/L Normal 98-107 [facility] Comment on above: Performed By: #### C MP3, MG3, HA1C2 #### [place] [address] [place] [place], [place] Comprehensive Metabolic Pane lOrdered By: Shashank Umanzor on 09-20-2020 Albumin [Mass/Vol] 4.4 g/dL 3.5 - 5.0 g/dL [facility] Work Phone: ALP (Bld) [Catalytic activity/Vol] 85 U/L 38 - 126 U/L [facility] Work Phone: ALT [Catalytic activity/Vol] 15 U/L 0 - 49 U/L [facility] Work Phone: Comment on above: The ALT [...] [Mass/Vol] 0.99 mg/dL 0.52 - 1.25 mg/dL [employer] Work Phone: EGFR IF NonAfrican Citizen Of [place] 76.5 mL/min >60 [facility] Work Phone: Comment [...] fraction] 7.7 g/dL 6.3 - 8.2 g/dL [facility] Work Phone: GFR/1.73 sq M.predicted among blacks MDRD (S/P/Bld) [Vol rate/Area] 88.6 mL/min/{1.73_m2} >60 [employer] Work Phone: Glucose [Mass/Vol] 91 mg/dL 70 - 100 mg/dL [employer] Work Phone: Potassium [Moles/Vol] 3.8 mmol/L 3.5 - 5.1 mmol/L [employer] Work Phone: Sodium [Moles/Vol] 139 mmol/L 135 - 145 mmol/L [employer] Work Phone: Urea nitrogen (BldV) [Mass/Vol] 18 mg/dL 7 - 20 mg/dL [employer] Work Phone: Hemoglobin A1Con 09-20-2020 Glucose [Mass/Vol] 117 mg/dL Normal [facility] Comment on above: Performed By: #### C MP3, MG3, HA1C2 ####[address] [place] [address] HbA1c (Bld) [Mass fraction] 5.7 % Abnormal [facility] Comment on above: Result Comment: Norm al less than 5.7% Prediabetes 5.7% to 6.4% Diabetes 6.5% or higher --HgbA1C levels may not be accurate in patients who have renal disease, received recent blood transfusions, are anemic, or who have dyshemoglobinemia. Performed By: #### C MP3, MG3, HA1C2 ####[address] [place] [address] Hemoglobin [id number] By: Bc in [place] on 09-20-2020 HbA1c (Bld) [Mass fraction] 5.7 % Abnormal [employer] Work Phone: Comment on above: Normal less than 5.7 % Prediabetes 5.7% to 6.4% Diabetes 6.5% or higher --HgbA1C levels may not be accurate in patients who have renal disease, received recent blood transfusions, are anemic, or who have dyshemoglobinemia. Interpretation and review of laboratory results Abnormal [employer] Work Phone: Magnesium [Mass/Vol] 117 mg/dL [facility] Work Phone: Test Performed by [facility], [address] [place] [address] [facility] Work Phone: MRSA by PCROrdered By: Shashank Umanzor on 09-20-2020 Staph Aureus Sc No S. aureus detected. Negative nasal MRSA PCR has a high negative predictive value for MRSA pneumonia. Consider stopping vancomycin if no other clinical indication. Contact Antimicrobial Stewardship for further recommendations. The analytical performance characteristics of this assay have been determined by [employer] in accordance with CLIA regulations. The modifications have not been cleared or approved by the U. S. Food and Drug Administration; however, the FDA has determined that such clearance or approval is not necessary. [facility] Work Phone: Test Performed by [facility], [address] [place] [id number] [place] [address] Work Phone: Magnesiumon 09-20-2020 Magnesium [Mass/Vol] 1.9 mg/dL Normal 1.6-2.3 [facility] Comment on above: Performed By: #### C MP3, MG3, HA1C2 #### [address] [address] MagnesiumOrdered By: Shashank cunningham on 09-20-2020 Magnesium [Mass/Vol] 1.9 mg/dL 1.6 - 2 .3 mg/dL [facility] Work Phone: No Panel InformationOrdered By: Shashank Umanzor on 09-20-2020 Test Performed by [facility], [address] [place] [id number] [place] [address] Work Phone: Staph Aureus Complete Nasalo n 09-20-2020 Staph Aureus Complete Nasal Staph Screen --> Status: F No S. aureus detected. Negative nasal MRSA PCR has a high negative predictive value for MRSA pneumonia. Consider stopping vancomycin if no other clinical indication. Contact Antimicrobial Stewardship for further recommendations. The analytical performance characteristics of this assay have been determined by [employer] in accordance with CLIA regulations. The modifications [...] of this assay have been determined by [employer] in accordance with CLIA regulations. The modifications have not been cleared or approved by the U. S. Food and Drug Administration; however, the FDA has determined that such clearance or approval is not necessary. Normal [facility] Comment on above: Performed By: #### S APCR ####[address] [place] [address] TS GELon 09-20-2020 TS GEL ABO Group: O Rh, Gel: POS Antibody Screen Gel: NEG Normal [facility] Comment on above: Performed By: #### L RC ####[address] [address]#### TSGL ####[facility] TYPE AND SCREENOrdered By: Nicol Umanzor on 09-20-2020 [employer] Work Phone: Rh Type Positive [employer] Work Phone: Test Performed by [id number] [address] [employer] Work Phone: XR CHEST (2 VW)Ordered By: Nicol Umanzor on 09-20-2020 [id number] ACCESSION EXAM DATE/TIME PROCEDURE ORDERING PROVIDER [id number] 09/20/2020 15:38 EDT CR Chest PA & LAT [id number] -SHASHANK UMANZOR CPT code 00896 Reason For Exam (CR Chest PA & LAT) preoperative evaluation Report CHEST X-RAY PA and lateral CLINICAL INDICATION: Preoperative examination PA and lateral radiographs of the chest were obtained. COMPARISON: None FINDINGS: The cardiac silhouette is within normal limits. Volume loss of the right lung with associated atelectasis/unix architect ural distortion. A small right pleural effusion may be present. No left-sided pleural effusion or focal consolidation is seen within the lungs. No pneumothorax is identified. Degenerative changes of the thoracic spine are noted. IMPRESSION: Volume loss of the right lung with associated atelectasis/unix architect ural distortion. A small right pleural effusion may be present. Report Dictated on --- Final --- Dictated: 09/20/2020 3:58 pm Dictating Physician: MD MCDONALD JASON Signed Date and Time: 09/20/2020 3:59 pm Signed by: MD MCDONALD JASON Transcribed Date and Time: 09/20/2020 3:58 [facility] Work Phone: [facility], [facility] Incoming Radiology Results From [facility] - 09/20/2020 4:00 PM EDT Patient Name: SUZETTE PALOMINO Diagnostic Radiology ACCESSION EXAM DATE/TIME PROCEDURE ORDERING PROVIDER [id number] 09/20/2020 15:38 EDT CR Chest PA & LAT [id number] -SHASHANK UMANZOR CPT code 62260 Reason For Exam (CR Chest PA & LAT) preoperative evaluation Report CHEST X-RAY PA and lateral CLINICAL INDICATION: Preoperative examination PA and lateral radiographs of the chest were obtained. COMPARISON: None FINDINGS: The cardiac silhouette is within normal limits. Volume loss of the right lung with associated atelectasis/unix architect ural distortion. A small right pleural effusion may be present. No left-sided pleural effusion or focal consolidation is seen within the lungs. No pneumothorax is identified. Degenerative changes of the thoracic spine are noted. IMPRESSION: Volume loss of the right lung with associated atelectasis/unix architect ural distortion. A small right pleural [...] cm Dr. Georgiana Mcfadden MD Work Phone: [facility] 11-29-2024 15:44-0400 Body mass index (BMI) [Ratio] 33 kg/m2 Dr. Georgiana Mcfadden MD Work Phone: [facility] 11-29-2024 15:44-0400 Body weight 110.[address] Georgiana Mcfadden MD Work Phone: [facility] 11-29-2024 15:44-0400 Diastolic blood pressure 83 mm[Hg] Dr. Geogriana Mcfadden MD Work Phone: [facility] 11-29-2024 15:44-0400 Heart rate 79 /min Dr. Georgiana Mcfadden MD Work Phone: [facility] 11-29-2024 15:44-0400 Respiratory rate 16 /min Dr. Georgiana Mcfadden MD Work Phone: [facility] 11-29-2024 15:44-0400 Systolic blood pressure 134 mm[Hg] Dr. Georgiana Mcfadden MD Work Phone: [facility] 03-27-2023 10:01-0500 Body height 182.[address] Georgiana Mcfadden Work Phone: [facility] 03-27-2023 10:01-0500 Body mass index (BMI) [Ratio] 32.1 kg/m2 Dr. Georgiana Mcfadden Work Phone: [facility] 03-27-2023 10:01-0500 Body temperature 97.8 [degF] Dr. Georgiana Mcfadden Work Phone: [facility] 03-27-2023 10:01-0500 Body weight 107.[address] Georgiana Mcfadden Work Phone: [facility] 03-27-2023 10:01-0500 Diastolic blood pressure 82 mm[Hg] Dr. Georgiana Mcfadden Work Phone: [facility] 03-27-2023 10:01-0500 Heart rate 72 /min Dr. Georgiana Mcfadden Work Phone: [facility] 03-27-2023 10:01-0500 Respiratory rate 18 /min Dr. Georgiana Mcfadden Work Phone: [facility] 03-27-2023 10:01-0500 SaO2% (BldA) [Mass fraction] 96 % Dr. Georgiana Mcfadden Work Phone: [facility] 03-27-2023 10:01-0500 Systolic blood pressure 143 mm[Hg] Dr. Georgiana Mcfadden Work Phone: [facility] 12-11-2022 15:17-0400 Body weight 105.[address] Georgiana Mcfadden Work Phone: [facility] 12-11-2022 15:17-0400 Diastolic blood pressure 75 mm[Hg] Dr. Georgiana Mcfadden Work Phone: [facility] 12-11-2022 15:17-0400 Heart rate 77 /min Dr. Georgiana Mcfadden Work Phone: [facility] 12-11-2022 15:17-0400 Respiratory rate 18 /min Dr. Georgiana Mcfadden Work Phone: [facility] 12-11-2022 15:17-0400 Systolic blood pressure 128 mm[Hg] Dr. Georgiana Mcfadden Work Phone: [facility] 12-11-2022 10:10-0400 Body height 182.[address] Georgiana Mcfadden Work Phone: [facility] 02-10-2022 08:01-0400 Body height 182.[address] Georgiana Mcfadden Work Phone: [facility] Work Phone: 02-10-2022 08:01-0400 Body mass index (BMI) [Ratio] 29.5 kg/m2 Dr. Georgiana Mcfadden Work Phone: [facility] Work Phone: 02-10-2022 08:01-0400 Body weight 98.[address] Georgiana Mcfadden Work Phone: [facility] Work Phone: 02-10-2022 08:01-0400 Diastolic blood pressure 82 mm[Hg] Dr. Georgiana Mcfadden Work Phone: [facility] Work Phone: 02-10-2022 08:01-0400 Heart rate 79 /min Dr. Georgiana Mcfadden Work Phone: [facility] Work Phone: 02-10-2022 08:01-0400 SaO2% (BldA) [Mass fraction] 96 % Dr. Georgiana Mcfadden Work Phone: [facility] Work Phone: 02-10-2022 08:01-0400 Systolic blood pressure 128 mm[Hg] Dr. Georgiana Mcfadden Work Phone: [facility] Work Phone: 09-04-2021 13:46-0400 Body weight 102.[address] Georgiana Mcfadden Work Phone: [facility] Work Phone: 08-08-2021 09:53-0400 Body weight 102.[address] Georgiana Mcfadden Work Phone: [facility] Work Phone: 07-30-2021 09:02-0400 Body temperature 98.3 [degF] Dr. Georgiana Mcfadden Work Phone: [facility] Work Phone: 07-30-2021 09:02-0400 Diastolic blood pressure 87 mm[Hg] Dr. Georgiana Mcfadden Work Phone: [facility] Work Phone: 07-30-2021 09:02-0400 Heart rate 84 /min Dr. Georgiana Mcfadden Work Phone: [facility] Work Phone: 07-30-2021 09:02-0400 Respiratory rate 14 /min Dr. Georgiana Mcfadden Work Phone: [facility] Work Phone: 07-30-2021 09:02-0400 SaO2% (BldA) [Mass fraction] 97 % Dr. Georgiana Mcfadden Work Phone: [facility] Work Phone: 07-30-2021 09:02-0400 Systolic blood pressure 135 mm[Hg] Dr. Georgiana Mcfadden Work Phone: [facility] Work Phone: 07-29-2021 15:27-0400 Body height 182.[address] Georgiana Mcfadden Work Phone: [facility] Work Phone: 07-29-2021 15:27-0400 Body mass index (BMI) [Ratio] 32 kg/m2 Dr. Georgiana Mcfadden Work Phone: [facility] Work Phone: 07-29-2021 15:27-0400 Body weight [address] Georgiana Mcfadden Work Phone: [facility] Work Phone: 06-13-2021 07:04-0500 Body temperature 97 [degF] Dr. Georgiana Mcfadden Work Phone: [facility] Work Phone: 06-13-2021 07:04-0500 Diastolic blood pressure 82 mm[Hg] Dr. Georgiana Mcfadden Work Phone: [facility] Work Phone: 06-13-2021 07:04-0500 Heart rate 71 /min Dr. Georgiana Mcfadden Work Phone: [facility] Work Phone: 06-13-2021 07:04-0500 Respiratory rate 18 /min Dr. Georgiana Mcfadden Work Phone: [facility] Work Phone: 06-13-2021 07:04-0500 SaO2% (BldA) [Mass fraction] 98 % Dr. Georgiana Mcfdaden Work Phone: [facility] Work Phone: 06-13-2021 07:04-0500 Systolic blood pressure 131 mm[Hg] Dr. Georgiana Mcfadden Work Phone: [facility] Work Phone: 05-31-2021 08:40-0500 Body temperature 96 [degF] Dr. Georgiana Mcfadden Work Phone: [facility] Work Phone: 05-31-2021 08:40-0500 Diastolic blood pressure 71 mm[Hg] Dr. Georgiana Mcfadden Work Phone: [facility] Work Phone: 05-31-2021 08:40-0500 Heart rate 69 /min Dr. Georgiana Mcfadden Work Phone: [facility] Work Phone: 05-31-2021 08:40-0500 Respiratory rate 16 /min Dr. Georgiana Mcfadden Work Phone: [facility] Work Phone: 05-31-2021 08:40-0500 SaO2% (BldA) [Mass fraction] 94 % Dr. Georgiana Mcfadden Work Phone: [facility] Work Phone: 05-31-2021 08:40-0500 Systolic blood pressure 104 mm[Hg] Dr. Georgiana Mcfadden Work Phone: [facility] Work Phone: 05-31-2021 06:59-0500 Body mass index (BMI) [Ratio] 30.2 kg/m2 Dr. Georgiana Mcfadden Work Phone: [facility] Work Phone: 05-31-2021 06:59-0500 Body weight [address] Gerogiana Mcfadden Work Phone: [facility] Work Phone: 05-20-2021 11:26-0500 Body mass index (BMI) [Ratio] 30.8 kg/m2 Dr. Georgiana Mcfadden Work Phone: [facility] Work Phone: 05-20-2021 11:26-0500 Body temperature 97.7 [degF] Dr. Georgiana Mcfadden Work Phone: [facility] Work Phone: 05-20-2021 11:26-0500 Body weight 103.[address] Georgiana Mcfadden Work Phone: [facility] Work Phone: 05-20-2021 11:26-0500 Diastolic blood pressure 81 mm[Hg] Dr. Georgiana Mcfadden Work Phone: [facility] Work Phone: 05-20-2021 11:26-0500 Heart rate 83 /min Dr. Georgiana Mcfadden Work Phone: [facility] Work Phone: 05-20-2021 11:26-0500 Respiratory rate 18 /min Dr. Georgiana Mcfadden Work Phone: [facility] Work Phone: 05-20-2021 11:26-0500 SaO2% (BldA) [Mass fraction] 97 % Dr. Georgiana Mcfadden Work Phone: [facility] Work Phone: 05-20-2021 11:26-0500 Systolic blood pressure 138 mm[Hg] Dr. Georgiana Mcfadden Work Phone: [facility] Work Phone: 09-26-2020 07:50-0400 Respiratory [...] Work Phone: [facility] Work Phone: NEGATED: Highlighted [id number] 12:32-0400 Body height 180.34 cm Paulo Cuadra BUS OR [employer]CH[employer] [facility] Work Phone: NEGATED: Highlighted [id number] 12:32-0400 Body height 180 cm Paulo Cuadra BUS OR TRUCK GAR[employer] MECHANIC [facility] [facility] Work Phone: NEGATED: Highlighted [id number] 12:32-0400 Body mass index (BMI) [Ratio] 30.93 kg/m2 Paulo Cuadra [employer] OR [employer]CH[employer] [facility] [place] [facility] Work Phone: NEGATED: Highlighted [id number] 12:32-0400 Body weight 100.25 kg Paulo Cuadra BUS OR TRUCK GARAGE MECHANIC [facility] [facility] Work Phone: NEGATED: Highlighted [id number] 12:32-0400 Body weight 100 kg Paulo Cuadra BUS OR TRUCK GARAGE MECHANIC [facility] Work Phone: Encounters Encounter Date Encounter Type Care Provider Facility Start: 12-26-2024 ambulatory Christiano Yuan Facility:[facility] Start: 12-21-2024 ambulatory Georgiana Pennington y:[facility] Start: 11-29-2024 End: 11-29-[address] Christiano Yuan MD -[facility] Work Phone: Start: 11-29-2024 End: 11-29-[address] Georgiana Mcfadden MD Work Phone: -[facility] Start: 11-28-[address] Georgiana Littlejohn MD -Occupational Therapy Work Phone: Start: 07-05-2024 End: 07-05-2024 ambulatory Georgiana Mcfadden Facility:[facility] Start: 04-22-2024 End: 04-22-2024 ambulatory Georgiana Fartun Facility:[facility] Start: 03-14-2024 End: 03-14-2024 ambulatory [facility] Facility:[facility] Start: 01-25-2024 ambulatory Georgiana Mcfadden Facilit y:[facility] Start: 01-25-2024 End: 01-25-2024 ambulatory Georgiana Mcfadden Facility:[facility] Start: 01-07-2024 End: 01-07-2024 ambulatory [facility] Facility:[facility] Start: 09-04-2023 End: 09-04-[address] Georgiana Mcfadden Work Phone: [facility] Work Phone: Start: 09-04-2023 End: 09-04-[address] Georgiana Mcfadden Work Phone: [facility] Work Phone: Start: 06-29-2023 End: 06-29-[address] Georgiana Mcfadden Work Phone: [facility] Work Phone: Start: 06-26-2023 End: 06-26-[address] Georgiana Mcfadden Work Phone: [facility] Work Phone: Start: 06-26-2023 End: 06-26-[address] Georgiana Mcfadden Work Phone: [facility] Start: 06-03-2023 End: 06-03-[address] Georgiana Mcfadden Work Phone: [facility] Work Phone: Start: 06-03-2023 End: 06-03-[address] Georgiana Mcfadden Work Phone: [facility]-Laboratory Work Phone: Start: 05-29-2023 End: 05-29-[address] Georgiana Mcfadden Work Phone: [facility] Work Phone: Start: 05-29-2023 End: 05-29-[address] Georgiana Mcfadden Work Phone: [facility] Work Phone: Start: 03-27-2023 End: 03-27-[address] Georgiana Mcfadden Work Phone: [facility] Work Phone: Start: 03-24-2023 End: 03-24-[address] Georgiana Mcfadden Work Phone: [facility] Work Phone: Start: 03-24-2023 End: 03-24-[address] Georgiana Mcfadden Work Phone: [facility]-Outpatient Breast Imaging Work Phone: Start: 03-11-2023 End: 03-11-[address] Georgiana Mcfadden Work Phone: [facility] Work Phone: Start: 03-11-2023 End: 03-11-[address] Georgiana Mcfadden Work Phone: [facility] Work Phone: Start: 02-19-2023 End: 02-19-[address] Georgiana Mcfadden Work Phone: [facility] Work Phone: Start: 01-26-[address] Georgiana rader Work Phone: [facility] Work Phone: Start: 12-11-2022 End: 12-11-[address] Georgiana Mcfadden Work Phone: [facility] Work Phone: Start: 12-11-2022 End: 12-11-[address] Georgiana Mcfadden Work Phone: [facility] Work Phone: Start: 03-24-2022 End: 03-24-[address] Georgiana Mcfadden Work Phone: [facility] Work Phone: Start: 03-24-2022 End: 03-24-[address] Georgiana Mcfadden Work Phone: [facility] Start: 02-10-2022 End: 02-10-[address] Georgiana Mcfadden Work Phone: [facility] Start: 10-23-2021 End: 10-23-[address] Georgiana Mcfadden Work Phone: [facility] Start: 10-22-2021 End: 10-22-[address] Georgiana Mcfadden Work Phone: [facility] Start: 09-19-2021 End: 09-19-[address] Georgiana Mcfadden Work Phone: [facility] Start: 09-04-2021 End: 09-04-[address] Georgiana Mcfadden Work Phone: [facility] Start: 08-08-2021 End: 08-08-[address] Georgiana Mcfadden Work Phone: [facility]-Laboratory, [facility] Start: 08-07-2021 End: 08-07-2021 Ot evaluation Georgiana Littlejohn MD Work Phone: [facility] Work Phone: Start: 07-30-2021 Non-patient / Non-visit Dr. Georgiana Mcfadden Work Phone: [facility] Start: 07-29-2021 End: 07-30-2021 Evaluation and management of inpatient Dr. Georgiana Mcfadden Work Phone: [facility] Start: 07-29-2021 Non-patient / Non-visit Dr. Georgiana Mcfadden Work Phone: [facility] Start: 07-22-2021 Non-patient / Non-visit Dr. Georgiana Mcfadden Work Phone: [facility] Start: 07-02-2021 End: 07-02-[address] Georgiana Mcfadden Work Phone: [facility] Start: 06-19-2021 End: 06-19-[address] Georgiana Mcfadden Work Phone: [facility] Start: 06-17-2021 End: 06-17-[address] Georgiana Mcfadden Work Phone: [facility] Start: 06-13-2021 [facility] Dr. Georgiana Mcfadden Work Phone: [facility]-Endoscopy Start: 05-31-2021 Non-patient / Non-visit Dr. Georgiana Mcfadden Work Phone: [facility] Start: 05-31-2021 End: 05-31-2021 Admission to same day surgery center Dr. Georgiana Mcfadden Work Phone: [facility]-Endoscopy Start: 05-27-2021 End: 05-27-[address] Georgiana Mcfadden Work Phone: [facility] Start: 05-20-2021 End: 05-20-[address] Georgiana Mcfadden Work Phone: [facility] Start: 04-26-[address] Georgiana Mcfadden Work Phone: [facility] Start: 09-24-2020 End: 09-26-2020 Evaluation and management of inpatient Brad Gama MD Work Phone: [facility] Comment on above: S/P thoracotomy (Maria Elena paulo Dx) Start: 09-20-2020 End: 09-20-2020 Subsequent hospital visit by physician Brad Gama MD Work Phone: [facility] Pre-Admit Testing Comment on above: Pleural effusion Start: 07-10-2020 Patient encounter procedure SELF SELF Facility:[facility] Procedures Date Procedure Procedure Detail Performing Clinician [...] 09-24-2020 Hemoglobin glycosyla karan a1c Margarethchetna Lou EXPORT SPECIALIST - MACHINE HOSTLER Work Phone: Start: 09-20-2020 Antibody screen Brad washington MD Work Phone: Start: 09-20-2020 Radiologic exam ches t 2 views Shashank Umanzor EXPORT SPECIALIST - MACHINE HOSTLER Work Phone: Start: 09-20-2020 MRSA BY PCR Shashank Palafox on EXPORT SPECIALIST - MACHINE HOSTLER Work Phone: Start: 09-20-2020 Blood typing serolog ic abo Shashank Umanzor EXPORT SPECIALIST - MACHINE HOSTLER Work Phone: Start: 09-20-2020 Comprehensive metabo lic panel Shashank Umanzor EXPORT SPECIALIST - MACHINE HOSTLER Work Phone: Start: 09-20-2020 Ecg routine ecg w/le ast 12 lds w/i&r Shashank Umanzor EXPORT SPECIALIST - MACHINE HOSTLER Work Phone: NEGATED: Highlighted rowStart: 08-07-2021 End: 08-07-2021 Documentation of current medications Paulo Cuadra BUS OR TRUCK [employer] MECHANIC Plan of Treatment Date Care Activity Detail Author Start: 10-25-2025 DTaP/Tdap/Td vaccine (2 - Td) DTaP/Tdap/Td vaccine (2 - Td) [facility] Work Phone: Start: 11-29-2024 Evaluation of diagno stic study results [facility] Start: 06-03-2023 Elastase.pancreatic [Presence] in Stool [facility] Start: 06-03-2023 Protein measurement [facility] Start: 06-03-2023 [facility] Start: 05-29-2023 Celiac disease screen [facility] Start: 05-29-2023 IgG subclass panel [Mass/volume] - Serum [facility] Start: 05-29-2023 Immunoglobulin measurement [facility] Start: 09-26-2021 Creatinine measurement Creatinine [...] 08-07-2021 End: 08-07-2021 Patient encounter procedure Appointment [facility] Work Phone: Start: 08-07-2021 End: 08-07-2021 Radex hand minimum 3 views [facility] Work Phone: Start: 05-31-2021 Colsc flx w/rmvl of tumor polyp lesion snare tq COLONOSCOPY W/LESION REMOVAL [facility] Work Phone: Start: 05-31-2021 Egd transoral biopsy single/multiple EGD BIOPSY SINGLE/MULTIPLE [facility] Work Phone: Start: 09-24-2020 Subsequent hospital visit by physician 09/24/2020 Hospital Encounter General Surgery Brad Gama MD [address] [place] [address] [facility] General Surgery Start: 09-20-2020 COVID-19 Vaccine (2 - Moderna 2-dose series) COVID-19 Vaccine (2 - Moderna 2-dose series) [employer] Work Phone: Start: 09-13-2020 Annual Wellness Visi [...] Daily until discontinued starting 09/26/2020, 1 completed [employer] Work Phone: Comment on above: Daily until disconti nued starting 09/26/2020, 1 completed Clostridioides diffi cile DNA [Presence] in Unspecified specimen by PADMINI with probe detection [facility] CPAP CPAP Respiratory Care Routine Every 4hr until discontinued starting 09/24/2020 [facility] Work Phone: Comment on above: Every 4hr until disc ontinued starting 09/24/2020 EKG 12 lead EKG 12 lead ECG Routine Pleural effusion 09/20/2020 2:51 PM EDT [facility] Work Phone: Elastase.pancreatic [Presence] in Stool [facility] Gastrointestinal pat hogens panel - Stool by PADMINI with probe detection [facility] Giardia lamblia Ag [Presence] in Stool by Immunoassay [facility] Giardia lamblia anti gen assay [facility] IgA [Mass/volume] in Serum or Plasma [facility] IgE [Units/volume] i n Serum or Plasma [facility] IgG [Mass/volume] in Serum or Plasma [facility] IgG subclass 1 [Mass/volume] in Serum [facility] IgG subclass 2 [Mass/volume] in Serum [facility] IgG subclass 3 [Mass/volume] in Serum [facility] IgG subclass 4 [Mass/volume] in Serum [facility] IgM [Mass/volume] in Serum or Plasma [facility] Lactoferrin [Presenc e] in Stool by Immunoassay [facility] Measurement of immunoglobulin A in serum specimen [facility] Nebulizer therapy [facility]N Treatment Respiratory Care Routine Every 4hr while awake until discontinued starting 09/24/2020 [facility] Work Phone: Comment on above: Every 4hr while awak e until discontinued starting 09/24/2020 Ova and parasites identified in Unspecified specimen by Light microscopy [facility] Ova and parasites identified in Unspecified specimen by Light microscopy [facility] Oxygen therapy [[facility]] Initiate Oxygen Therapy Protocol Respiratory Care Routine Daily until discontinued starting 09/24/2020 [facility] Work Phone: Comment on above: Daily until disconti nued starting 09/24/2020 Patient referral [facility] Work Phone: PREPARE RBC ([facility]), 2 Units PREPARE RBC (CROSSMATCH), 2 Units Blood Bank Routine Pleural effusion 09/20/2020 3:21 PM EDT [facility] Work Phone: Protein measurement [facility] Spirometry panel Incentive aleida metry Respiratory Care Routine Every 2hr while awake until discontinued starting 09/24/2020 [facility] Work Phone: Comment on above: Every 2hr while awak e until discontinued starting 09/24/2020 Tissue transglutamin ase IgA Ab [Units/volume] in Serum [facility] End: 10-01-2020 XR CHEST PORTABLE XR CHEST PORTABLE Imaging Routine Daily for 7 Occurrences starting 09/25/2020 until 10/01/2020, 2 completed [facility] Work Phone: Comment on above: Daily for 7 Occurren messi starting 09/25/2020 until 10/01/2020, 2 completed Immunizations Immunization Date Immunization Notes Care Provider [facility] 03-24-2021 Covid (Moderna) Dr. Georgiana quezada Work Phone: [facility] 01-31-2020 influenza, injectabl e, quadrivalent, preservative free Dr. Georgiana Mcfadden Work Phone: [facility] 01-31-2020 influenza, seasonal, injectable Dr. Georgiana Mcfadden Work Phone: [facility] Work Phone: Payers Date Payer Category Payer Self-pay [id number] 2019 Medicare [id number] 2014 Unknown [id number] 1950 Unknown [id number] 2.16. [id number] Unknown [id number] 2.16.8 [id number] Unknown [id number] 2.16.8 [id number] Unknown [id number] 2.16.8 [id number] Unknown [id number] 2.16.8 [id number] Unknown [id number] 2.16.8 [id number] Unknown [id number] 2.16.8 [id number] Unknown [id number] 2.16.8 [id number] Unknown [id number] 2.16.8 [id number] Unknown [id number] 2.16.8 [id number] Social History Date Type Detail Facility Start: 09-20-2020 End: 06-29-2023 Tobacco smoking status [facility] Former smoker [facility] History of tobacco use Cigarette Smoker S [facility] Start: 09-20-2020 End: 09-25-2020 Cigarettes smoked current (pack per day) - Reported [facility] Work Phone: Start: 09-20-2020 End: 09-25-2020 Tobacco use and exposure Never used [facility] Start: 09-20-2020 End: 09-25-2020 Alcohol intake Current drinker of alcohol (finding) [employer] Work Phone: Start: 09-20-2020 Tobacco Comment 1PPD TIMES 20 YRS QUIT 1979 [facility] Work Phone: Start: 09-13-2020 Alcohol Comment 1 glass of win e per evening [employer] Work Phone: Sex Assigned At Not on file [employer] Work Phone: Exposure to SARS-CoV -2 (event) Not sure [facility] Start: 08-08-2021 End: 06-29-2023 Assertion Unknown if ever smoked [facility] Work Phone: Start: 04-03-2020 Occasional [facility] Start: 04-03-2020 None [facility] Start: 04-02-2020 Spouse/ Signif icant Other [facility] Start: 04-03-2020 Non-smoker [facility] Start: 1950 Sex Assigned At Male W [facility] Medical Equipment Procedure Code Equipment Code Equipment Origin al Text Equipment Identifier Dates Sonal fundoplication CLIP,HEMOL OCK DARRELL ROBERTS FDA Start: 07-29-2021 Sonal fundoplication PLEDGET,SO FT 8x8x1.6mm FDA Start: 07-29-2021 Sonal fundoplication SEALANT,FL OSEAL HEMOSTATIC 5ML FDA Start: 07-29-2021 Sonal fundoplication SEALANT,FL OSEAL HEMOSTATIC 5ML FDA Start: 07-29-2021 Sonal fundoplication Ligation c lip, synthetic polymer, non-bioabsorbable [id number] FDA Start: 07-29-2021 Sonal fundoplication DRESSING,F IBRILLAR [...] Start: 07-29-2021 Sonal fundoplication CLIP,HEMOL OCK [facility] FDA Start: 07-29-2021 Sonal fundoplication PLEDGET,SO [...] Assessment Result Facility 07-30-2021 Functional status Ambulates [facility] Work Phone: Mental Status Date Assessment Result Facility 07-30-2021 Cognitive function Level Of Cons ciousness Awake;Alert;Appropriate;Follow s Commands [facility] Work Phone: 07-29-2021 Cognitive function Voice/Name [facility] Work Phone: 06-13-2021 Cognitive function Level Of Cons ciousness Awake;Alert;Appropriate;Follow s Commands [facility] Work Phone: 05-31-2021 Cognitive function Voice/Name [facility] Work Phone: Clinical Notes 09-20-2020 to 07-29-2021 Note Date & Type Note Facility 07-29-2021 Chief complaint+Reason for visit Narrative Reason for Visit Splenic hemorrhage History of repair of hiatal hernia [facility] Work Phone: 1(168) 107-763103-14-2022 Chief complaint+Reason for visit Narrative * Chief Complaint Discuss results LAP TOUPET PROCEDURE LAP TOUPET PROCEDURE LAP TOUPET PROCEDURE LAP TOUPET PROCEDURE [facility] 07/29 F/U [facility] 07/29 EORDER Reason for Visit Splenic hemorrhage History of repair of hiatal hernia [facility] Work Phone: [phone]) 858-635305-12-2021 Note Attestation signed by Brad Gama MD at 09/27/2020 12:44 PM I independently saw and evaluated the patient - including reviewing the labs, imaging studies, and available documentation. I agree with the findings and plan of care as documented by the resident/OPTOMETRIST/PRACTICE OWNER/HIGHWAY ENGINEERING TEACHER/PA, unless otherwise noted. Please do not hesitate to contact me/us if you have any questions or concerns. Brad Gama MD FACS Discharge Summary: Cardiothoracic Surgery Suzette Palomino :1950 AGE: 70 y.o. ADMIT DATE: 09/24/2020 DISCHARGE DATE: 09/26/2020 DISCHARGING SURGEON: Brad Gama MD, Office Number: [phone] PRIMARY CARE PHYSICIAN: GEORGIANA FLOREZ VISIT STATUS: [...] DISCHARGE MEDICATIONS: Suzette Palomino Home Medication Instructions RE:[id number] Printed on:09/26/20 3997 Medication Information allopurinol (ZYLOPRIM) 300 MG tablet [...] Moralez MD 09/26/2020, 5:39 [facility]05-12-2021 Hospital Discharge instructions* Instructions* Brad Moralez MD - 09/26/2020 Images from the original note were not included. [facility]: Cardiothoracic Surgery [address] [facility] (T): #[phone] (F): #[phone] After lung surgery, it is common to [...] or dog food bags, or a vacuum body cleaner. If your incision is in the [...] start to have pain. Shoulder Stretch 1. stage settings painter a doorway and place one arm against [...] Ifyou are prescribed oxycodone/acetaminophen (Percocet) or hydrocodone/acetaminophen ([place]/Vicodin) be cautious when taking additional tylenol. No [...] -Chest pain. -Abdominal distention. [facility] Work Phone: 1(991) 467-954105-12-2021 History of Present illness Narrative* Aletha Demarco RN - 09/26/2020 1:37 PM EDT Went over discharge instructions, med rec, and prescription with pt. Pt verbalized understanding. Extra drsgs given to pt. Transportation notified of discharge * Paris Connell - 09/26/2020 12:01 PM EDT Nutrition rescreen completed. Chart reviewed. Patient to be monitored and followed by the diet clinical laboratory technician. SHANTELLE Verduzco * Brad Moralez MD [...] solution 1 ampule, 1 ampule, Inhalation, Q4H MI polyethylene glycol (GLYCOLAX) packet 17 g, 17 [...] plan of care as documented by the resident/OPTOMETRIST/PRACTICE OWNER/HIGHWAY ENGINEERING TEACHER/PA, unless otherwise noted. Please do not hesitate to contact me/us if you have any questions or concerns. Brad Gama MD FACS * Kerwin Crocker, PT - 09/25/2020 10:25 AM EDT Physical Therapy Facility/Department: [facility] Initial Assessment NAME: [...] Ambulation Assistance: Independent Transfer Assistance: Independent Active Web Ui Developer: Yes Cognition Cognition Overall Cognitive Status: WFL [...] 1010 Minutes 10 Kerwin Crocker PT * Brad Moralez MD - 09/25/2020 6:22 AM EDT [...] solution 1 ampule, 1 ampule, Inhalation, Q4H MI polyethylene glycol (GLYCOLAX) packet 17 g, 17 g, Oral, Daily senna (SENOKOT) tablet 8.6 mg, 1 tablet, Oral, Nightly acetaminophen (TYLENOL) tablet 1,000 mg, 1,000 mg, Oral, TID naloxone (NARCAN) injection 0.4 mg, 0.4 mg, Intravenous, PRN HYDROmorphone (DILAUDID) 30 mg in sodium chloride 0.9 % 30 mL [facility] [facility], , Intravenous, Continuous HYDROmorphone (DILAUDID) injection 0.5 [...] medications per pain management team -Transfer to [address] Associated attestation - Brad Gama MD - 09/25/2020 12:11 PM EDT I independently saw and evaluated the patient - including reviewing the labs, imaging studies, and available documentation. I agree with the findings and plan of care as documented by the resident/OPTOMETRIST/PRACTICE OWNER/HIGHWAY ENGINEERING TEACHER/PA, unless otherwise noted. Please do not hesitate to contact me/us if you have any questions or concerns. Brad Gama MD FACS * Shelley Contreras - 09/24/2020 4:46 PM EDT Belongings taken to pt admit room [id number] [place] [facility] Work Phone: [phone]) 802-948905-06-2021 History of Present illness Narrative* Margareth Lou APRN - CNP - 09/20/2020 2:00 PM EDT Received notification per lab- CBC and A1C clotted Ordered repeat DOS. documented in this [facility] Work Phone: 1(459) 696-929705-06-2021 Hospital Discharge instructions* Instructions* Eva Servin RN - 09/20/2020 Please bring your CPAP/BiPAP device, mask, and equipment with you on the day of surgery. Do not bring water for your machine, it will be provided.Shower with and antibacterial soap such as Dial or Safeguard. Please bring your [facility] Surgical Information folder on the day of [...] Everywhere. * VATS (Video-Assisted Thoracoscopic Surgery): Post-op (Danish) * Thoracoscopic Sympathectomy: Pre-op (Danish) * Thoracotomy: Post-op (Danish) * VATS (Video-Assisted Thoracoscopic Surgery): Pre-op (Danish) [facility] Work Phone: Evaluation note* Diagnosis Pleural effusion Unspecified pleural effusion documented in this encounter [facility] Work Phone: Evaluation note* Diagnosis S/P thoracotomy- Primary Other postprocedural status documented in this encounter [facility] Work Phone: Evaluation noteThere may be information available, but it has not been provided by the sender.[facility] Work Phone: Evaluation note* Diagnosis Onset Date Resolution Status Family history of colon cancer acute Splenic hemorrhage resolved [facility] Work Phone: Evaluation note* Diagnosis Onset Date Resolution Status Splenic hemorrhage resolved History of repair of hiatal hernia acute [facility] Work Phone: Evaluation note* Diagnosis Onset Date Resolution Status Small intestinal bacterial overgrowth (SIBO) acute [facility] Work Phone: Evaluation note* Diagnosis Onset Date Resolution Status Essential (primary) hypertension chronic Hyperlipidemia chronic [facility] Work Phone: Evaluation note* Diagnosis Onset Date Resolution Status Breast mass, right acute Small intestinal bacterial overgrowth (SIBO) acute Excessive flatus chronic [facility] Work Phone: Evaluation note* Diagnosis Onset Date Resolution Status Breast mass, right acute Small intestinal bacterial overgrowth (SIBO) acute Excessive flatus chronic Abnormal ultrasound of breast acute [facility] Work Phone: Evaluation note* Diagnosis Onset Date Resolution Status Small intestinal bacterial overgrowth (SIBO) acute Excessive flatus chronic Abnormal ultrasound of breast acute [facility] Work Phone: Evaluation note* Diagnosis Onset Date Resolution Status Admit Date Essential (primary) hypertension chr onic November 29, 2024 3:43pm [facility] Work Phone: Instructions* Instruction Description Start Date CompletedPatient advised to follow-up with Primary Care Physician for BMI management. [facility] Work Phone: Reason for referral (narrative)No reason for referral [facility] Work Phone: Summary Purpose Family History No [...] Yes July 29, 2021 3:27pm Power of Police Commissioner Yes July 29 3:27pm Advance Directive Response Recorded Date/ Time Living Will Yes July 29, 2021 2:27pm Power of Police Commissioner Yes July 29 2:27pm Reason for Referral Status Reason Specialty Diagnoses / Procedures Referre d By Contact Referred To Contact [facility] Diagnoses Pleural effusion Procedures EKG 12 lead Shashank Umanzor, EXPORT SPECIALIST - MACHINE HOSTLER [address] [place] [address] Chief Complaint Chief Complaint Description Start Date [...] content) DATE CREATED AUTHOR 07/12/2020 [facility] DATE CREATED AUTHOR AUTHOR'S ORGANIZ ATION 08/30/2021 [facility] DATE CREATED AUTHOR AUTHOR'S ORGANIZ ATION 12/24/2024 Dominik [facility] Ordered Prescriptions (unrec ognized section and [...] 29, 2024 End: November 29, 2024 Dr. hCristiano Yuan MD Attending Provider Active S tart: [...] BE BASED ON THE PRIMARY CLINICAL RECORDS. [employer] provides no warranty or guarantee of the accuracy or completeness of information in this document.
--- NOTE | 2024-12-26 18:29 | STRESSREP ---
Stress Test Report Exercise myocardial perfusion stress test. 74-year-old man with a history of shortness of breath Stress protocol: Resting EKG demonstrates normal sinus rhythm with a rate of 63 bpm resting blood pressure is 120/72 mmHg. The patient exercised according to the regular Hipolito protocol for a total duration of 6 minutes attaining a maximum heart rate of 148 bpm which was 101% of maximum predicted heart rate; the maximum workload was 7 metabolic equivalents. At rest there were no ST or T wave changes noted to suggest ischemia and at peak exercise upsloping ST changes only were noted which did not meet the criteria for ischemia. No clinical angina was noted the test was terminated due to the target heart rate being achieved/fatigue. The peak blood pressure was 178/84 mmHg. Rate-pressure product was 26,300. Myocardial perfusion protocol. 15.0 mCi of technetium 99m sestamibi was injected at rest. The patient exercised according to regular Hipolito protocol for total duration of 6 minutes and at peak exercise 45.0 mCi of technetium 99m sestamibi was injected stress images were obtained stress and rest images were reconstructed in comparing the short axis vertical long and horizontal long axis. Gated images were also obtained. Perfusion SPECT analysis: Review of the stress images demonstrate normal uptake of tracer noted in all areas of the myocardium. The resting images similarly demonstrate normal uptake of tracer noted in all areas of the myocardium. No areas of reversibility are noted to suggest ischemia no previous infarct was noted. Gated SPECT analysis: The gated ejection fraction is 75%. Conclusion: Normal exercise myocardial perfusion stress test at a moderate workload Preserved ejection fraction.
== END | disposition home or self-care (01) ==
LOC: CVS 06:47
PROVIDERS: PCP Family Medicine; Referring Provider Internal Medicine Cardiovascular Disease; Visit Provider Internal Medicine Cardiovascular Disease
DX: R06.02 Shortness of breath (principal)
CPT/HCPCS: 78452; 93017; 93306; A9500; A4216

== ENCOUNTER → 2025-01-23 | Outpatient (CLI) | payer MEDICARE, OTHER, SELFPAY ==
[2025-01-23 11:41] LABS: Hematocrit 42.2 % (40-54); Hemoglobin 14.7 g/dL (13.0-16.5); Immature Granulocytes Count 0.050 X10^3/uL (0.0-0.0); Mean Corp Hgb Conc 34.8 g/dL (32-36); Mean Corpuscular Volume 87.9 fL (80-94); Mean Platelet Vol. 8.2 fl (6.2-12.0); NRBC Flagged by Analyzer 0 % (0-5); Platelet Count 207 K/mm3 (150-450); RBC Distribution Width CV 14.3 % (11.6-14.6); RBC Distribution Width SD 45.3 fl (35.1-43.9); Red Blood Count 4.80 M/mm3 (4.6-6.2); White Blood Count 6.8 K/mm3 (4.4-11.0)
[2025-01-23 11:45] LABS: Mucous, Urine 0 SEEN /hpf (<or=2+); Red Blood Cells-Urine 0 SEEN /hpf (0-5); Squamous Epithelial Cells - UA 0 SEEN /hpf (0-5)
[2025-01-23 11:49] LABS: Color, Urine Yellow (Yellow); Glucose, Dipstick Normal (Normal); Ketone-Dipstick Negative (Negative); Leukocyte Esterase-Dipstick Negative /ul (Negative); Nitrite-Dipstick Negative (Negative); Occult Blood-Urine Negative /ul (Negative); Protein-Dipstick Negative (Negative); Specific Gravity, Urine 1.010 (1.002-1.030); Urine Bilirubin Dipstick Negative (Negative)
[2025-01-23 12:25] LABS: AST(SGOT) 19 U/L (<=37); Alanine Aminotransfer ALT/SGPT 15 U/L (<=46); Albumin, Serum 4.3 g/dL (3.4-4.8); Alkaline Phosphatase 68 U/L (40-129); Anion Gap 12 (5-15); BUN 22 mg/dL (4-19); BUN/Creat Ratio 18.9 RATIO (10-20); Calcium,Total 9.3 mg/dL (7.6-11.0); Carbon Dioxide 20.3 mmol/L (21.0-32.0); Chloride 105 mmol/L (98-108); Cholesterol 156 mg/dL (<=200); Globulin 2.5 g/dL (2.2-4.2); Glucose 95 mg/dL (70-99); Low Density Lipoprotein Calc. 67 mg/dL; Magnesium 2.0 mg/dL (1.5-2.2); Potassium 4.3 mmol/L (3.3-5.1); Pro- Brain NATRIURETIC PEPTIDE 51 pg/mL (<=1800); Triglycerides 164 mg/dL; Uric Acid 4.9 mg/dL (3.5-7.2); Very Low Density Lipoprotein 33 mg/dL (5-40); cholesterol:hdl ratio screen 2.80
--- OUTSIDE RECORDS SUMMARY | 2025-01-23 20:00 | XMS RPT_ITS | CCD ---
Author Organization [facility] Care Team Providers Care Paper Coater Name Role Phone SELF, SELF Referring Unavailable GEORGIANA MCFADDEN Primary Care Unavailable Georgiana Florez Primary Care Provider Unava nereyda Littlejohn MD, Georgiana Mendiola Unavailable [phone] Georgiana Mcfadden Primary Care Provider [phone] Dr. Georgiana Mcfadden Referring Provider Dr. Skip Landry Attending Provider Dr. Skip Landry Other Provider Dr. Christiano Yuan Attending Provider Dr. Skip Landry Referring Provider [phone] Skip Landry Admit Provider Dr. Georgiana Mcfadden Primary Care Provider [phone] Dr. Georgiana Mcfadden Referring Provider Dr. Skip Landry Attending Provider [phone] Georgiana Mcfadden Primary Care Provider Dr. Georgiana Mcfadden Referring Provider Dr. Skip Landry Attending Provider [phone] Skip Landry Other Provider Dr. Georgiana Mcfadden Primary Care Provider Dr. Georgiana Mcfadden Referring Provider Asha FRYE, BEEF CATTLE SPECIALIST-C Tati Mckenzie Attending Provider [phone] Dr. Georgiana Mcfadden Primary Care Provider Dr. Georgiana Mcfadden Referring Provider Dr. Christiano Yuan Attending Provider Dr. Georgiana Mcfadden Primary Care Provider Dr. Georgiana Mcfadden Referring Provider Dr. Christiano Yuan Attending Provider Dr. Georgiana Mcfadden Primary Care Provider Dr. Georgiana Mcfadden Referring Provider Dr. Skip Landry Attending Provider [phone] Pantera Cervantes Attending Provider [phone] Georgiana Mcfadden Primary Care Provider Dr. Georgiana Mcfadden Referring Provider Dr. Pantera Cervantes Attending Provider [phone] Skip Landry Attending Provider [phone] Georgiana Mcfadden MD Primary Care Provider [phone] Eron KAYE, Dr. Georgiana Mendiola Attending Provider [phone] Dr. Georgiana Littlejohn MD Referring Provider [phone] Dr. Georgiana Mcfadden MD Referring Provider [phone] Dr. Christiano Yuan MD Attending Provider [phone] Georgiana Mcfadden MD Primary Care Provider Dr. Christiano Yuan MD Referring Provider [phone] Edith Metzger Attending Provider [phone] Georgiana Littlejohn MD Attending Provider Dr. Georgiana Littlejohn MD Referring Provider Christiano Yuan Attending Unavailable Georgiana Mcfadden Primary Care Unavailable Georgiana Mcfadden Referring Unavailable Georgiana Mcfadden Primary Care Unavailable Sawyer Monten[place]ro Attending Unavailable Christiano Yuan Attending Unavailable Georgiana Mcfadden Primary Care Unavailable Schinner, Georgiana E Referring Unavailable Schinner, Georgiana E Primary Care Unavailable BillyPantera Attending Unavailable Schinner, Georgiana E Referring Unavailable Schinner, Georgiana E Primary Care Unavailable Edd Nur Attending Unavailable Edd Nur Referring Unavailable Schinner, Georgiana E Referring Unavailable Schinner, Georgiana E Primary Care Unavailable Schinner, Georgiana E Attending Unavailable Schinner, Georgiana E Primary Care Unavailable Georgiana Littlejohn Attending Unavailable Georgiana Littlejohn Referring Unavailable Christiano Yuan Attending Unavailable Kwabena, [place] Referring Unavailable Schinner, Georgiana E Primary Care Unavailable Schinner, Georgiana E Primary Care Unavailable Schinner, Georgiana E Attending Unavailable Schinner, Georgiana E Referring Unavailable Schinner, Georgiana E Primary Care Unavailable Esvin BEEF CATTLE SPECIALIST, Edith Attending Unavailable Esvin BEEF CATTLE SPECIALIST, Edith Attending Unavailable Schinner, Georgiana E Primary Care Unavailable Medications Current Medications Medication [...] 09-24-2020 acetaminophen (TYLENOL) tabl et 1,000 mg [id number] 200 actuat albuterol 0.09 mg/actuat metered dose inhaler (2 sources) beta2-Adrenergic Agonist Start: 11-29-2024 Albut erica Sulfate 90 mcg/actuation HFA aerosol inhaler Active INHALATION November 29, 2024 12:00am ease breathing albuterol 0.833 mg/ml / ipratropium bromide 0.167 mg/ml inhalation solution (1 source) Anticholinergic, beta2-Adrenergic Agonist Start: 09-24-2020 1 ampule, Inhal ation, EVERY 4 HOURS WHILE AWAKE, First dose on 09/24/20 at 2000 allopurinol 300 mg oral tablet (17 sources) Xanthine Oxidase Inhibitor Start: 12-12-2019 Allopurinol 300 mg tablet Active 1 {tbl} PO DAILY December 12, 2019 12:00am Check with primary doctor Start: 12-12-2019 take 1 tablet by amanda th once daily Allopurinol Active 1 TABLET PO DAILY December 12, 2019 12:00am atorvastatin 20 mg oral tablet (17 sources) HMG-CoA Reductase Inhibitor Start: 09-24-2020 take 10 mg by mouth once daily 10 mg, Oral, NIGHTLY, First dose on Thu09/24/20 at 2100 Start: 12-12-2019 Atorvastatin 1 0 mg tablet Active 1 {tbl} PO DAILY December 12, 2019 12:00am cholesterol Start: 12-12-2019 take 1 tablet by amanda th once daily Atorvastatin Active 1 TABLET PO DAILY December 12, 2019 12:00am finasteride 5 mg oral tablet (9 sources) 5-alpha Reductase Inhibitor Start: 11-26-2021 take 1 tablet by mouth at bedtime Finasteride 5 mg tablet Active 5 mg PO AT BEDTIME November 26, 2021 12:00am mirtazapine 7.5 mg oral tablet (2 sources) Start: 04-22-2024 take 1 tablet by mouth once daily Mirtazapine 7.5 mg tablet Active 7.5 mg PO daily April 22, 2024 1:00am Multiple Vitamins-Minerals (THERAPEUTIC MULTIVITAMIN-MINERA LS) tablet (2 sources) take 1 tablet by mouth once daily Multiple Vitamins-Minerals (THERAPEUTIC MULTIVITAMIN-STOCK CHECKER ALS) tablet Take 1 tablet by mouth daily CENTRUM SILVER 0 Active Pcbxpmrl-Tve-Nd-Lyc open-Lutein (Centrum Silver Men) 300-600-300 mcg tablet (5 sources) Start: 12-12-2019 take 300-600 tablets by mouth once daily Vgbaylsj-Frx-Yj-Ly copen-Lutein (Centrum Silver Men) 300-600-300 mcg tablet Active 1 TABLET PO DAILY December 12, 2019 8:50am Start: 12-12-2019 take 300-600 tablets by mouth once daily Uacrmpsm-Orf-Rk-Lycopen-Lutein (Centrum Silver Men) 300-600-300 mcg tablet Active 1 TABLET PO DAILY December 11, 2019 11:00pm La-Cvj-Ixfsn-B0-Sdbjrco-Nloe in (Centrum Silver Men) 300-600-300 mcg tablet (8 sources) Start: 12-12-2019 Ij-Fpr-Vnokp-J5-Kzhkxsw-Htod in (Centrum Silver Men) 300-600-300 mcg tablet Active 1 {tbl} PO DAILY December 12, 2019 12:00am Check with primary doctor Start: 12-12-2019 take 300-600 tablets by mouth once daily Qz-Qox-Avzwz-N3-Ttkzxcv-Mlgyxk (Centrum Silver Men) 300-600-300 mcg tablet Active 1 TABLET PO DAILY December 11, 2019 11:00pm Start: 12-12-2019 take 300-600 tablets by mouth once daily Vi-Mdx-Ihicf-Z4-Dfbhmce-Wjgpjh (Centrum Silver Men) 300-600-300 mcg tablet Active [...] Substituted for Omeprazole (PRILOSEC). polyethylene glycol 3350 85628 mg powder for oral solution (1 source) Osmotic Laxative Start: 09-24-2020 17 g, Oral, DAILY, First dose on Thu09/24/20 at 1645 sennosides, nursing home 8.6 mg oral tablet (1 source) Start: 09-24-2020 take 1 tablet by mouth once daily for constipation 8.6 mg (1 tablet), Oral, NIGHTLY, First dose on Thu09/24/20 at 2100 First line therapy for constipation sildenafil 100 mg oral tablet (16 sources) Phosphodiesterase 5 Inhibitor Start: 12-12-2019 Sildenafil 100 mg tablet Active 100 NMA PO NEEDED as needed for ED December 12, 2019 12:00am Start: 12-12-2019 Sildenafil Act yunior 100 EACH PO NEEDED December 12, 2019 12:00am VIAGRA 100 MG TA BS 1 tablet by mouth as directed as needed sildenafil [id number] Austyn Pena RN 3 ml sodium chloride 9 [...] / oxyCODONE hydrochloride 5 mg oral tablet (13 sources) Opioid Agonist Start: 04-06-2020 End: 04-12-2020 Oxycodone-Acetamino phen 1 TABLET tablet Discontinued 1 - 2 {tbl} PO EVERY 4 HOURS NEEDED as needed for Pain 14 11April 06, 2020 April 11, 2020 1:00am April [...] to continue azithromycin 250 mg oral tablet (13 sources) Macrolide Antimicrobial Start: 05-30-2020 End: 06-03-2020 [...] End: 09-24-2020 celecoxib (CELEBREX) capsule 200 mg colestipol hydrochloride 1000 mg oral tablet (20 sources) Bile Acid Sequestrant Start: 10-16-2023 End: 08-19-2024 Colestipol 1 gram tablet Discontinued 2 g PO TWICE A DAY 120 3 April 04, 2024 3:20pm August 19, 2024 11:47am Start: 08-17-2023 End: 08-20-2023 Colestipol 1 gram tablet Dis continued 1 g PO TWICE A DAY 60 2 August 17, 2023 12:00am August 20, 2023 8:38am Diarrhea Diarrhea, unspecified Start: 07-22-2023 End: 10-16-2023 Colestipol 1 gram tablet Dis continued 1 g PO DAILY 30 0 August 21, 2023 8:10am October 16, 2023 7:18am dexamethasone 4 mg oral tablet (13 sources) Corticosteroid Start: 06-03-2020 End: 08-21-2020 take 6 mg by mouth once daily Dexamethasone 4 MG tablet Discontinued 6 mg PO DAILY 5 June 03, 2020 1:00am August 21, 2020 8:49pm Start: 06-03-2020 End: 08-21-2020 take 6 mg by mouth once daily Dexamethasone Discontinu ed 6 MG PO DAILY June 03, 2020 1:00am August 21, 2020 8:49pm doxycycline hyclate 100 mg oral capsule (18 sources) Tetracycline-class Drug Start: 02-10-2022 End: 04-28-2022 take 1 capsule by mouth twice daily Doxycycline Hyclate 100 mg capsule Discontinued 100 mg PO TWICE A DAY 28 0 February 24, 2022 12:00am April 28, 2022 [...] guaiFENesin 1200 mg extended release oral tablet (13 sources) Start: 06-03-2020 End: 08-21-2020 take 1 [...] tablet by mouth once a day triamterene-hydrochlorothiazid [id number] Austyn Pena RN levoFLOXacin 500 mg oral tablet (13 sources) Quinolone Antimicrobial St ar t: 11 20 En d: 20 take 1 tablet by mouth once daily Levofloxacin 500 MG tablet Discontinued 500 mg PO DAILY 6 April 06, 2020 1:00am April 11, 2020 1:00am April 12, 2020 1:03am Vfhxmg-Soxzzzom-Pnakrc e (Zenpep) 40,000-126,000- 168,000 unit capsule,delayed release(DR/EC) (2 sources) St ar t: 12 -0 24 En d: 25 take [address] 00 capsules by mouth three times daily Mrzqup-Kgszxvbi-Fsttcgd (Zenpep) 40,000-126,000- 168,000 unit capsule,delayed release(DR/EC) Discontinued 1 NMA PO THREE TIMES A DAY 270 90 April 22, 2024 1:00am November 29, 2024 3:47pm losartan potassium 50 mg oral tablet (20 sources) Angiotensin [address] ar t: 22 En d: 25 take 1 tablet by mouth once daily Losartan 50 mg tablet Discontinued 50 mg PO DAILY 90 June 11, 2023 9:19am August 09, 2024 3:41pm jwkrchns-vba-tm-lycope n-lutein (1 source) take 1 tablet by mouth once daily CENTRUM SILVER ADULT 50+ TABS 1 tablet by mouth once a day joqtmswy-eme-jh-lycopen-lutein [id number] Austyn Pena RN omeprazole 20 mg delayed release oral capsule (20 sources) Proton Pump Inhibitor St ar t: En d: take 1 capsule by mouth once daily Omeprazole 20 mg capsule,delayed release(DR/EC) Discontinued 20 mg PO DAILY January 07, 2022 12:00am February 10, 2022 8:09am Start: 12-12-2019 End: 11-26-2021 Omeprazole 20 mg capsule,del ayed release(DR/EC) Discontinued 1 {tbl} PO DAILY December 12, [...] by mouth once a day omeprazole magnesium [id number] Austyn Pena RN psyllium 520 mg oral capsule (15 sources) Start: 05-20-2021 End: 11-26-2021 Psyllium Husk [...] 11-23-2021 Episodic Diseases of white blood cells (13 sources) Leukocytosis; Translations: [Elevated white blood cell count, unspecified] 06-05-2020 Chronic Disorders of lipid metabolism (17 sources) Hyperlipidemia; Translations: [Hyperlipidemia, unspecified] Onset: 5 08-17-2020 Chronic Esophageal disorders (13 sources) Gastroesophageal reflux disease; Translations: [Gastro-esophageal reflux disease without esophagitis] 08-08-2021 Chronic Comment on above: per pt, controlled o n meds Essential hypertension (18 sources) Essential hypertension; Translations: [Essential (primary) hypertension] [...] Onset: 2 08-07-2021 Episodic Nonmalignant breast conditions (9 sources) Breast lump; Translations: [Unspecified lump in the right breast, unspecified quadrant] 03-27-2023 Episodic Other connective tissue disease (1 source) Palmar fascial fibromatosis [Dupuytren]; Translations: [Contracture of palmar fascia] Onset: 2 08-07-2021 Episodic Other gastrointestinal disorders (2 sources) Irritable bowel syndrome with diarrhea; Translations: [Irritable bowel syndrome with diarrhea] 10-15-2023 Chronic Other gastrointestinal disorders (13 sources) Small bowel bacterial overgrowth syndrome; Translations: [Other specified diseases of intestine] 02-10-2022 Episodic Other gastrointestinal disorders (9 sources) Excessive flatus; Translations: [Flatulence] 01-03-2022 Episodic Other gastrointestinal disorders (1 source) Other specified diseases of intestine; Translations: [Other specified disorders of intestine] Episodic Other gastrointestinal disorders (4 sources) Flatulence; Translations: [Flatulence, eructation, and gas pain] 05-29-2023 Episodic Other gastrointestinal disorders (3 sources) Diarrhea; Translations: [Diarrhea, unspecified] 08-17-2023 Episodic Other hematologic conditions (13 sources) Splenic hemorrhage; Translations: [Infarction of spleen] 08-07-2021 Episodic Other hematologic conditions (4 sources) Infarction of spleen; Translations: [Other diseases of spleen] Episodic Other lower respiratory disease (2 sources) Dyspnea; Translations: [Shortness of breath] 11-29-2024 Episodic Other lower respiratory disease (1 source) Shortness of breath; Translations: [Shortness of breath] Onset: Episodic Other nervous system disorders (9 sources) Neuropathy of lower limb; Translations: [Unspecified mononeuropathy of left lower limb] 11-23-2021 Chronic Other nervous system disorders (4 sources) Left leg peripheral neuropathy; Translations: [Unspecified mononeuropathy of left lower limb] 11-23-2021 Chronic Other screening for suspected conditions (not mental disorders or infectious disease) (6 sources) Ultrasonography of breast abnormal; Translations: [Other abnormal and inconclusive findings on diagnostic imaging of breast] 06-29-2023 Episodic Pleurisy; pneumothorax; pulmonary collapse (20 sources) Pleural effusion; Translations: [Pleural effusion, not elsewhere classified] Episodic Comment on above: 09/24/20 Right thorac otomy, total pulmonary decortication for right lung entrapment Residual codes; unclassified (13 sources) Obstructive sleep apnea syndrome; Translations: [Obstructive sleep apnea (adult) (pediatric)] 08-17-2020 Chronic Residual codes; unclassified (2 sources) History of thoracic surgery; Translations: [Other specified postprocedural states] Onset: Episodic Residual codes; unclassified (13 sources) Family history of cancer of colon; Translations: [Family history of malignant neoplasm of digestive organs] 11-23-2021 Episodic Residual codes; unclassified (1 source) Family history of malignant neoplasm of digestive organs; Translations: [Family history of malignant neoplasm of gastrointestinal tract] Episodic Residual codes; unclassified (12 sources) History of hernia repair; Translations: [Other [...] Episodic Unclassified (1 source) Problem Viral infection (13 sources) COVID-19; Translations: [Severe acute respiratory syndrome coronavirus 2 (SARS-CoV-2) detected] Onset: 05-30-2020 11-23-2021 Episodic Results Test Name Value Interpretation Reference Range Facility Cardiovascular stress test r eportOrdered By: Christiano Yuan on 12-26-2024 Study report [facility] [address] [place] [address] MR#: [id number] Acct: [id number] Name: SUZETTE PALOMINO Rep #: [id number] : 1950 74 From: Christiano Yuan MD Primary Care: Dr. Georgiana Mcfadden MD Sta tus: REG CLI Referring Dr: Christiano Yuan MD Sex: M C Stress Test Report Exercise myocardial perfusion stress test. 74-year-old man with a history of shortness of breath Stress protocol: Resting EKG demonstrates normal sinus rhythm with a rate of 63 bpm resting bloodpressure is 120/72 mmHg. The patient exercised according to the regular Hipolito protocol for a total duration of 6 minutes attaining a maximum heart rate of 148bpm which was 101% of maximum predicted heart rate; the maximum workload was 7 metabolic equivalents. At rest there were no ST or T wave changes noted to suggest ischemia and at peak exercise upsloping ST changes only were noted whichdid not meet the criteria for ischemia. No clinical angina was noted the test was terminated due to the target heart rate being achieved/fatigue. The peak blood pressure was 178/84 mmHg. Rate-pressure product was 26,300. Myocardial perfusion protocol. 15.0 mCi of technetium 99m sestamibi was injected at rest. The patient exercised according to regular Hipolito protocol for total duration of 6 minutes and at peak exercise 45.0 mCi of technetium 99m sestamibi was injected stress imageswere obtained stress and rest images were reconstructed in comparing the short axis vertical long and horizontal long axis. Gated images were also obtained. Perfusion SPECT analysis: Review of the stress images demonstrate normal uptake of tracer noted in all areas of the myocardium. The resting images similarly demonstrate normal uptakeof tracer noted in all areas of the myocardium. No areas of reversibility are noted to suggest ischemia no previous infarct was noted. Gated SPECT analysis: The gated ejection fraction is 75%. Conclusion: Normal exercise myocardial perfusion stress test at a moderate workload Preserved ejection fraction. 12/26/24 1830 Date _ Christiano Yuan MD CC: Dr. Christiano Yuan MD; Dr. Georgiana Mcfadden MD ~ Date Dictated: 12/26/241828 Date Transcribed: 12/26/241828 Marketing Secretary: [place] Signed [facility] Work Phone: Echo Completeon 12-26-2024 Echo Complete [facility] [address] [place] [address] Echo Complete 12/26/24 0923 MR#: [id number] Acct: [id number] Name: SUZETTE PALOMINO Rep #: [id number] : 1950 74 From: Christiano Yuan MD Attending Dr: Dr. Christiano Yuan MD Status: REG C Ordering Dr: Christiano Yuan MD Date: 12/26/24 Location: [facility] Sex: M C Admitted: Reason For Study Reason For Study: Dyspnea/SOB Procedure This was a 2D Doppler, Color Flow transthoracic echocardiogram. Exam performed in department. Left Ventricle Normal LV size. The left ventricular ejection fraction is 60 %. Stage 1 diastolic dysfunction. No regional wall motion abnormalities noted. Right Ventricle Normal RV size. Normal systolic function. Atria Normal left atrium. Normal right atrium. Mitral Valve Normal mitral valve. Tricuspid Valve Normal tricuspid valve. Mild tricuspid valve insufficiency. Pulmonary artery systolic pressure is 33 mmHg. Aortic Valve Trisinus/trileaflet aortic valve. Pulmonic Valve Normal pulmonic valve. Great Vessels Normal aortic root. The pulmonary artery is normal size. Inferior vena cava collapse with respiration. Pericardium/Pleural No pericardial effusion. MMode/2D Measurements Calculations LVIDd: 5.2 cm IVSd: 1.1 cm Ao root diam: 3.2 cm LVIDs: 2.9 cm LVPWd: 1.2 cm RVDd: 3.5 cm FS: 43.8 % LAV(MOD-bp): 56.1 ml LVAd ap4: 27.1 cm2 SV(MOD-sp4): 49.0 ml LAV(MOD-bp) Indexed: 24.4 ml/m2 LVLd ap4: 7.5 cm SI(MOD-sp4): 21.3 ml/m2 LAV(MOD-sp2): 48.5 ml EDV(MOD-sp4): 80.0 ml LAV(MOD-sp4): 57.5 ml EDV(sp4-el): 83.0 ml LVAs ap4: 15.2 cm2 LVLs ap4: 6.2 cm ESV(MOD-sp4): 31.0 ml ESV(sp4-el): 31.7 ml EF(MOD-sp4): 61.2 % EF(sp4-el): 61.8 % SV(sp4-el): 51.3 ml LA A4 area: 20.1 cm2 LA dimension(2D): 4.6 cm RA A4 area: 13.5 cm2 TAPSE: 2.5 cm Time Measurements MV dec time: 0.17 sec Doppler Measurements Calculations MV E max blanche: 79.9 cm/sec Lat Peak E' Blanche: 9.4 cm/sec Med Peak E' Blanche: 6.6 cm/sec MV A max blanche: 95.5 cm/sec E/E' lat: 8.5 E/E' med: 12.1 MV E/A: 0.84 Ao V2 max: 129.7 cm/sec LV V1 max: 114.6 cm/sec MV dec slope: 459.1 cm/sec2 Ao max P.7 mmHg LV V1 max P.3 mmHg Ao V2 mean: 89.9 cm/sec Ao mean P.7 mmHg Ao V2 VTI: 30.7 cm PA V2 max: 129.0 cm/sec TR max blanche: 277.0 cm/sec TR max P.7 mmHg ECHO/Echo Complete Interpretation Summary Normal LV size. The left ventricular ejection fraction is 60 %. Stage 1 diastolic dysfunction. Mild tricuspid valve insufficiency. Structurally normal valves. Ordering Physician: Christiano Yuan Referring Physician: Georgiana Mcfadden Performed By: Fabiana Gibbs, PATRICIACS, RVT 12/26/24 1409 Date Christiano Yuan MD CC: Dr. Christiano Yuan MD; Dr. Georgiana Mcfadden MD Date Dictated: 12/26/24922 Date Transcribed: 12/26/241408 Marketing Secretary: Signed Normal [facility] Echocardiogram study reportO rdered By: Christiano Yuan on 12-26-2024 Study report [facility] [address] [place] [address] Echo Complete 12/26/24922 MR#: [id number] Acct: [id number] Name: SUZETTE PALOMINO Rep #:[id number] : 1950 74 From: Christiano Hadley Attending Dr: Dr. Christiano Yuan MD S tatus: REG CLI Ordering Dr: Christiano Yuan MD Date: 04/11 Location: [facility] Sex: M C Admitted: Reason For Study Reason For Study: Dyspnea/SOB Procedure This was a 2D Doppler, Color Flow transthoracic echocardiogram. Exam performed in department. Left Ventricle Normal LV size. The left ventricular ejection fraction is 60 %. Stage 1 diastolic dysfunction. No regional wall motion abnormalities noted. Right Ventricle Normal RV size. Normal systolic function. Atria Normal left atrium. Normal right atrium. Mitral Valve Normal mitral valve. Tricuspid Valve Normal tricuspid valve. Mild tricuspid valve insufficiency. Pulmonary artery systolic pressure is 33 mmHg. Aortic Valve Trisinus/trileaflet aortic valve. Pulmonic Valve Normal pulmonic valve. Great Vessels Normal aortic root. The pulmonary artery is normal size. Inferior vena cava collapse with respiration. Pericardium/Pleural No pericardial effusion. MMode/2D Measurements & Calculations LVIDd: 5.2 cm IVSd: 1.1 cm Ao root diam: 3.2 cm LVIDs: 2.9 cm LVPWd: 1.2 cm RVDd: 3.5 cm FS: 43.8 % LAV(MOD-bp): 56.1 ml LVAd ap4: 27.1 cm2 SV(MOD-sp4): 49.0 ml LAV(MOD-bp) Indexed: 24.4 ml/m2 LVLd ap4: 7.5 cm SI(MOD-sp4): 21.3 ml/m2 LAV(MOD-sp2): 48.5 ml EDV(MOD-sp4): 80.0 ml LAV(MOD-sp4): 57.5 ml EDV(sp4-el): 83.0 ml LVAs ap4: 15.2 cm2 LVLs ap4: 6.2 cm ESV(MOD-sp4): 31.0 ml ESV(sp4-el): 31.7 ml EF(MOD-sp4): 61.2 % EF(sp4-el): 61.8 % SV(sp4-el): 51.3 ml LA A4 area: 20.1 cm2 LA dimension(2D): 4.6 cm RA A4 area: 13.5 cm2 TAPSE: 2.5 cm Time Measurements MV dec time: 0.17 sec Doppler Measurements & Calculations MV E max blanche: 79.9 cm/sec Lat Peak E' Blanche: 9.4 cm/sec Med Peak E' Blanche: 6.6 cm/sec MV A max blanche: 95.5 cm/sec E/E' lat: 8.5 E/E' med: 12.1 MV E/A: 0.84 Ao V2 max: 129.7 cm/sec LV V1 max: 114.6 cm/sec MV dec slope: 459.1 cm/sec2 Ao max P.7 mmHg LV V1 max P.3 mmHg Ao V2 mean: 89.9 cm/sec Ao mean P.7 mmHg Ao V2 VTI: 30.7 cm PA V2 max: 129.0 cm/sec TR max blanche: 277.0 cm/sec TR max P.7 mmHg ECHO/Echo Complete Interpretation Summary Normal LV size. The left ventricular ejection fraction is 60 %. Stage 1 diastolic dysfunction. Mild tricuspid valve insufficiency. Structurally normal valves. Ordering Physician: Christiano Yuan Referring Physician: Georgiana Mcfadden Performed By: Fabiana Gibbs RDCS, RVT 12/26/24 1409 Date _ Christiano Yuan MD CC: Dr. Christiano Yuan MD; Dr. Georgiana Mcfadden MD ~ Date Dictated: 12/26/24922 Date Transcribed: 12/26/241408 Marketing Secretary: Signed [facility] Work Phone: Stress Reporton 12-26-2024 Stress Report [facility] [address] [place] [id number] MR#: [id number] Acct: [id number] Name: SUZETTE PALOMINO Rep #: [id number] : 1950 74 From: Christiano Yuan MD Primary Care: Dr. Georgiana Mcfadden MD Status: REG CLI Referring Dr: Christiano Yuan MD Sex: M C Stress Test Report Exercise myocardial perfusion stress test. 74-year-old man with a history of shortness of breath Stress protocol: Resting EKG demonstrates normal sinus rhythm with a rate of 63 bpm resting blood pressure is 120/72 mmHg. The patient exercised according to the regular Hipolito protocol for a total duration of 6 minutes attaining a maximum heart rate of 148 bpm which was 101% of maximum predicted heart rate; the maximum workload was 7 metabolic equivalents. At rest there were no ST or T wave changes noted to suggest ischemia and at peak exercise upsloping ST changes only were noted which did not meet the criteria for ischemia. No clinical angina was noted the test was terminated due to the target heart rate being achieved/fatigue. The peak blood pressure was 178/84 mmHg. Rate-pressure product was 26,300. Myocardial perfusion protocol. 15.0 mCi of technetium 99m sestamibi was injected at rest. The patient exercised according to regular Hipolito protocol for total duration of 6 minutes and at peak exercise 45.0 mCi of technetium 9 9m sestamibi was injected stress images were obtained stress and rest images were reconstructed in comparing the short axis vertical long and horizontal long axis. Gated images were also obtained. Perfusion SPECT analysis: Review of the stress images demonstrate normal uptake of tracer noted in all areas of the myocardium. The resting images similarly demonstrate normal uptake of tracer noted in all areas of the myocardium. No areas of reversibility are noted to suggest ischemia no previous infarct was noted. Gated SPECT analysis: The gated ejection fraction is 75%. Conclusion: Normal exercise myocardial perfusion stress test at a moderate workload Preserved ejection fraction. 12/26/24 1830 Date Christiano Yuan MD CC: Dr. Christiano Yuan MD; Dr. Georgiana Mcfadden MD Date Dictated: 12/26/241828 Date Transcribed: 12/26/241828 Marketing Secretary: [place] Signed Normal [facility] Cardiology Visit Reporton Cardiology Visit Report [facility] [address] [place] [address]. [address] [place] [address] OFFICE VISIT Date of Service: 11/29/24 MR#: [id number] Acct: [id number] Name: SUZETTE PALOMINO Rep #: [id number] : 1950 Provider: Dr. Christiano Yuan MD Age/Sex: 74/M Location: [facility] Status: Signed HPI HPI History of Present [...] effusion for which he was sent to [facility] underwent a right thoracotomy with decortication. [...] a pulmonary function test done through the rejoiner office which demonstrated evidence of mild obstructive ventilatory component with an FEV1 of more than 70% predicted there was no significant measurable clinical response to beta agonist and mild restrictive component confirmed in the lung volumes. He continues to follow with the rejoiner and he tells me that this test [...] Monitor Intake Visit Reasons: 2 Y FU Shredder Tender Required: No Accompanied by: Self Is patient in pain?: No Allergies No Known Allergies Allergy (Verified 11/29/24 15:46) Medications ???Medication ???Instructions ???Recorded ???Confirmed ???Type allopurinol 300 mg tablet 1 tab PO DAILY Check with primary 12/12/19 11/29/24 History doctor atorvastatin 10 mg tablet 1 tab PO DAILY cholesterol 0 11/29/24 History sudkhdbf-oo-xqhjq 300 mcg-K 60 1 tab PO DAILY [...] History (Re (more content not included)... Normal [facility] Re-Evalution OTon 07-13-2024 Re-Evalution OT [facility] Occupational Therapy [facility] [address] [place] [address] / REEVALUATION / MEDICARE RECERTIFICATION OCCUPATIONAL THERAPY MR#: [id number] Acct: [id number] Name: SUZETTE PALOMINO Rep #: [id number] : 1950 74 From: Saida Cruz OTR/L, CHT Referring Dr.: Dr. Georgiana Littlejohn MD [...] Yes Goal:ROM equal to unaffected hand: Yes Goal:Coupon Collection Clerk/Pinch strength at least 75% of unaffected hand: Yes Goal:No pain with affected hand use: Yes Goal:Full use of affected hand in daily activities including work: Yes Goal:Improvement in sensation documented by Whitetail-Dusty monofiliaments: Yes Other Goal: orthosis use: pt [...] do not hesitate to contact me at [phone] by phone or if you have questions or concerns regarding this new plan of care! Sincerely, Saida Cruz, OTR/L, CHT 07/13/24 1222 CC: Dr. Georgiana Mcfadden MD; Dr. Georgiana Littlejohn MD MK Signed For Medicare only, by signing this I certify the plan of care. Physicians Signature Date Normal [facility] CBC W/Diff, Automatedon 06-18 Absolute Lymph 1.62 X10 3/uL Normal 0.83-4.51 [facility] Comment on above: Performed By: #### L , L500.4100, L500.4050, L100.0100, L501.1400 #### [facility] [address] [place], [place], [id number] Absolute Neut 2.9 X10 3/uL Normal 2.0-7.7 [facility] Comment on above: Performed By: #### L 400, L500.4100, L500.4050, L100.0100, L501.1400 #### [facility] [address] [place], [address] Basophils/100 WBC (Bld) 1.7 % High 0-1 [facility] Comment on above: Performed By: #### L 400, L500.4100, L500.4050, L100.0100, L501.1400 #### [facility] [address] [place], [address] Eosinophils/100 WBC (Bld) 3.4 % Normal 0-5 [facility] Comment on above: Performed By: #### L 400, L500.4100, L500.4050, L100.0100, L501.1400 #### [facility] [address] [place], [address] Erythrocyte distribution width (RBC) [Ratio] 13.5 % Normal 11.6-14.6 [facility] Comment on above: Performed By: #### L 400, L500.4100, L500.4050, L100.0100, L501.1400 #### [facility] [address] [place], [address] Hematocrit (Bld) [Volume fraction] 43.1 % Normal 40-54 [facility] Comment on above: Performed By: #### L 400, L500.4100, L500.4050, L100.0100, L501.1400 #### [facility] [address] [place], [address] Hemoglobin (Bld) [Mass/Vol] 14.7 g/dL Normal 13.0-16.5 [facility] Comment on above: Performed By: #### L 400, L500.4100, L500.4050, L100.0100, L501.1400 #### [facility] [address] [place], [address] IG% 0.600 Normal 0.0-0.9 [facility] Comment on above: Result Comment: IG% - Immature Granulocytes (promyelocytes, myelocytes and metamyelocytes) > 1% indicates that a LEFT SHIFT is Present. Performed By: #### L 400, L500.4100, L500.4050, L100.0100, L501.1400 #### [facility] [address] [place], [address] Lymphocytes/100 WBC (Bld) 30.8 % Normal 19-41 [facility] Comment on above: Performed By: #### L 400.2010, L500.4100, L500.4050, L100.0100, L501.1400 #### [facility] [address] [place], [address] MCH (RBC) [Entitic mass] 30.9 pg Normal 27.0-32.0 [facility] Comment on above: Performed By: #### L 400.2010, L500.4100, L500.4050, L100.0100, L501.1400 #### [facility] [address] [place], [address] MCHC (RBC) [Mass/Vol] 34.1 g/dL Normal 32-36 [facility] Comment on above: Performed By: #### L 400.2010, L500.4100, L500.4050, L100.0100, L501.1400 #### [facility] [address] [place], [address] MCV (RBC) [Entitic vol] 90.7 fL Normal 80-94 [facility] Comment on above: Performed By: #### L 400.2010, L500.4100, L500.4050, L100.0100, L501.1400 #### [facility] [address] [place], [address] Monocytes/100 WBC (Bld) 8.7 % Normal 0-10 [facility] Comment on above: Performed By: #### L 400.2010, L500.4100, L500.4050, L100.0100, L501.1400 #### [facility] [address] [place], [address] Neutrophils/100 WBC (Bld) 54.8 % Normal 47-70 [facility] Comment on above: Performed By: #### L 400.2010, L500.4100, L500.4050, L100.0100, L501.1400 #### [facility] [address] [place], [address] Nucleated RBC (Bld) [#/Vol] 0 10*3/uL Normal 0-5 [facility] Comment on above: Performed By: #### L 400.2010, L500.4100, L500.4050, L100.0100, L501.1400 #### [facility] [address] [place], [address] Platelet mean volume (Bld) [Entitic vol] 8.5 fL Normal 6.2-12.0 [facility] Comment on above: Performed By: #### L 400, L500.4100, L500.4050, L100.0100, L501.1400 #### [facility] [address] [place], [address] Platelets (Bld) [#/Vol] 254 10*3/uL Normal 150-450 [facility] Comment on above: Performed By: #### L 400, L500.4100, L500.4050, L100.0100, L501.1400 #### [facility] [address] [place], [address] RBC (Bld) [#/Vol] 4.75 10*6/uL Normal 4.6-6.[address] [facility] Comment on above: Performed By: #### L 400, L500.4100, L500.4050, L100.0100, L501.1400 #### [facility] [address] [place], [address] RDW SD 45.7 fl High 35.1-43.9 [facility] Comment on above: Performed By: #### L 400, L500.4100, L500.4050, L100.0100, L501.1400 #### [facility] [address] [place], [address] WBC (Bld) [#/Vol] 5.3 10*3/uL Normal 4.4-11.0 [facility] Comment on above: Performed By: #### L 400.2010, L500.4100, L500.4050, L100.0100, L501.1400 #### [facility] [address] [place], [address] Comprehensive Metabolic Prof ilon 07-05-2024 Albumin [Mass/Vol] 3.8 g/dL Normal 3.2-5.0 [facility] Comment on above: Performed By: #### L 400.2010, L500.4100, L500.4050, L100.0100, L501.1400 #### [facility] [address] [place], [address] Albumin/Globulin [Mass ratio] 1.2 {ratio} Normal 0.9-2.4 [facility] Comment on above: Performed By: #### L 400.2010, L500.4100, L500.4050, L100.0100, L501.1400 #### [facility] [address] [place], [address] ALK P 51 U/L Normal 45-117 [facility] Comment on above: Performed By: #### L 400.2010, L500.4100, L500.4050, L100.0100, L501.1400 #### [facility] [address] [place], [address] ALT [Catalytic activity/Vol] 24 U/L Normal 16-61 [facility] Comment on above: Performed By: #### L 400, L500.4100, L500.4050, L100.0100, L501.1400 #### [facility] [address] [place], [address] AST [Catalytic activity/Vol] 18 U/L Normal 15-37 [facility] Comment on above: Performed By: #### L 400.2010, L500.4100, L500.4050, L100.0100, L501.1400 #### [facility] [address] [place], [address] Bilirubin [Mass/Vol] 1.10 mg/dL High 0.20-1.00 [facility] Comment on above: Result Comment: For patients on eltrombopag therapy, use of Dimension Austin TBIL is not recommended. Performed By: #### L 400.2010, L500.4100, L500.4050, L100.0100, L501.1400 #### [facility] [address] [place], [address] BUN/CRE 19.1 RATIO Normal 10-20 [facility] Comment on above: Performed By: #### L 400.2010, L500.4100, L500.4050, L100.0100, L501.1400 #### [facility] [address] [place], [address] CA,Total 9.2 mg/dL Normal 8.5-10.1 [facility] Comment on above: Performed By: #### L 400, L500.4100, L500.4050, L100.0100, L501.1400 #### [facility] [address] [place], [address] Chloride [Moles/Vol] 108 mmol/L High 98-107 [facility] Comment on above: Performed By: #### L 400, L500.4100, L500.4050, L100.0100, L501.1400 #### [facility] [address] [place], [address] CO2 [Moles/Vol] 26.0 mmol/L Normal 21.0-32.0 [facility] Comment on above: Performed By: #### L 400.2010, L500.4100, L500.4050, L100.0100, L501.1400 #### [facility] [address] [place], [address] Creatinine [Mass/Vol] 1.15 mg/dL Normal 0.70-1.30 [facility] Comment on above: Result Comment: The validity of the calculated GFR GFRAA in patients over 70 years has not been determined. Clinical correlation is essential. Performed By: #### L 400.2010, L500.4100, L500.4050, L100.0100, L501.1400 #### [facility] [address] [place], [address] EST GFR - AA 80 mL/min Normal >60 [facility] Comment on above: Result Comment: Afri can Venezuelan GFR Calc Performed By: #### L 400, L500.4100, L500.4050, L100.0100, L501.1400 #### [facility] [address] [place], [address] GAP 5 Normal 5-15 [facility] Comment on above: Performed By: #### L 400.2010, L500.4100, L500.4050, L100.0100, L501.1400 #### [facility] [address] [place], [address] GFR/1.73 sq M.predicted among non-blacks MDRD (S/P/Bld) [Vol rate/Area] 66 mL/min/{1.73_m2} Normal >60 [facility] Comment on above: Result Comment: Non- GFR Calc Performed By: #### L 400, L500.4100, L500.4050, L100.0100, L501.1400 #### [facility] [address] [place], [address] Globulin (S) [Mass/Vol] 3.3 g/dL Normal 2.2-4.2 [facility] Comment on above: Performed By: #### L 400.2010, L500.4100, L500.4050, L100.0100, L501.1400 #### [facility] [address] [place], [address] Glucose [Mass/Vol] 95 mg/dL Normal 74-106 [facility] Comment on above: Performed By: #### L 400, L500.4100, L500.4050, L100.0100, L501.1400 #### [facility] [address] [place], [address] Potassium [Moles/Vol] 4.3 mmol/L Normal 3.5-5.1 [facility] Comment on above: Performed By: #### L 400, L500.4100, L500.4050, L100.0100, L501.1400 #### [facility] [address] [place], [address] Sodium [Moles/Vol] 140 mmol/L Normal 136-145 [facility] Comment on above: Performed By: #### L 400, L500.4100, L500.4050, L100.0100, L501.1400 #### [facility] [address] [place], [address] T PROT 7.1 g/dL Normal 6.4-8.2 [facility] Comment on above: Performed By: #### L 400, L500.4100, L500.4050, L100.0100, L501.1400 #### [facility] [address] [place], [address] Urea nitrogen [Mass/Vol] 22 mg/dL High 7-18 [facility] Comment on above: Performed By: #### L 400, L500.4100, L500.4050, L100.0100, L501.1400 #### [facility] [address] [place], [address] Lipid Profileon 07-05-2024 Cholesterol [Mass/Vol] 134 mg/dL Normal 200 [facility] Comment on above: Result Comment: <200 mg/dL Desirable 200-240 mg/dL Borderline >240 mg/dL High Risk Performed By: #### L 400.2010, L500.4100, L500.4050, L100.0100, L501.1400 #### [facility] [address] [place], [address] Cholesterol in HDL [Mass/Vol] 50 mg/dL Normal [facility] Comment on above: Result Comment: The drugs N-Acetylcysteine and Metamizole may falsely depress this assay. Reference Range HDL <40 mg/dL Low HDL Cholesterol HDL >or= 60 mg/dL High HDL Cholesterol Performed By: #### L 400.2010, L500.4100, L500.4050, L100.0100, L501.1400 #### [facility] [address] [place], [address] Cholesterol in LDL [Mass/Vol] 51 mg/dL Normal 0-130 [facility] Comment on above: Performed By: #### L 400.2010, L500.4100, L500.4050, L100.0100, L501.1400 #### [facility] [address] [place], [address] Cholesterol in VLDL [Mass/Vol] 33 mg/dL Normal 5-40 [facility] Comment on above: Performed By: #### L 400.2010, L500.4100, L500.4050, L100.0100, L501.1400 #### [facility] [address] [place], [address] Triglyceride [Mass/Vol] 164 mg/dL Normal [facility] Comment on above: Result Comment: The drugs N-Acetylcysteine and Metamizole may falsely depress this assay. Serum Triglycerides Reference Interval Normal <150 mg/dL Borderline high 150 - 199 mg/dL High 200 - 499 mg/dL Very High > or = 500 mg/dL Performed By: #### L 400.2010, L500.4100, L500.4050, L100.0100, L501.1400 #### [facility] [address] [place], [address] Uric Acidon 07-05-2024 URIC 4.2 mg/dL Normal 3.5-7.2 [facility] Comment on above: Result Comment: The drugs N-Acetylcysteine and Metamizole may falsely depress this assay. Performed By: #### L 400.2010, L500.4100, L500.4050, L100.0100, L501.1400 #### [facility] [address] [place], [address] Urinalysis, Routine (Dipstic k)on 07-05-2024 BILIRUBIN URINE Negative Normal Negative [facility] Comment on above: Order Comment: Urine , Random Performed By: #### L 400.2010, L500.4100, L500.4050, L100.0100, L501.1400 #### [facility] [address] [place], [address] Clarity (U) Clear Normal Clear [facility] Comment on above: Order Comment: Urine , Random Performed By: #### L 400.2010, L500.4100, L500.4050, L100.0100, L501.1400 #### [facility] [address] [place], [address] Color (U) Yellow Normal Yellow [facility] Comment on above: Order Comment: Urine , Random Performed By: #### L 400.2010, L500.4100, L500.4050, L100.0100, L501.1400 #### [facility] [address] [place], [address] GLUCOSE, UR Normal Normal Normal [facility] Comment on above: Order Comment: Urine , Random Performed By: #### L 400.2010, L500.4100, L500.4050, L100.0100, L501.1400 #### [facility] [address] [place], [address] KETONE UR Negative Normal Negative [facility] Comment on above: Order Comment: Urine , Random Performed By: #### L 400.2010, L500.4100, L500.4050, L100.0100, L501.1400 #### [facility] [address] [place], [address] LEUK ESTERASE Negative Normal Negative [facility] Comment on above: Order Comment: Urine , Random Performed By: #### L 400.2010, L500.4100, L500.4050, L100.0100, L501.1400 #### [facility] [address] [place], [address] Nitrite Ql (U) Negative Normal Negative [facility] Comment on above: Order Comment: Urine , Random Performed By: #### L 400.2010, L500.4100, L500.4050, L100.0100, L501.1400 #### [facility] [address] [place], [address] OCCULT BLOOD-UR Negative Normal Negative [facility] Comment on above: Order Comment: Urine , Random Performed By: #### L 400.2010, L500.4100, L500.4050, L100.0100, L501.1400 #### [facility] [address] [place], [address] pH UR 6.0 Normal 5.0 - 8.0 [facility] Comment on above: Order Comment: Urine , Random Performed By: #### L 400.2010, L500.4100, L500.4050, L100.0100, L501.1400 #### [facility] [address] [place], [address] PROT DIPSTX 15 mg/dl Abnormal Negative [facility] Comment on above: Order Comment: Urine , Random Performed By: #### L 400.2010, L500.4100, L500.4050, L100.0100, L501.1400 #### [facility] [address] [place], [address] SP.GR. DIPSTX 1.020 Normal 1.002-1.030 [facility] Comment on above: Order Comment: Urine , Random Performed By: #### L 400.2010, L500.4100, L500.4050, L100.0100, L501.1400 #### [facility] [address] [place], [address] UROBILI Normal Normal Normal [facility] Comment on above: Order Comment: Urine , Random Performed By: #### L 400.2010, L500.4100, L500.4050, L100.0100, L501.1400 #### [facility] [address] [place], [address] OT General Evaluationon 05-19 OT General Evaluation [facility] Occupational Therapy [address] [place] [address] / REHABILITATION SERVICES INITIAL EVALUATION MR#: [id number] Acct: [id number] Name: SUZETET PALOMINO Rep #: [id number] : 1950 74 From: Saida PADILLA/Lillie, CHT Referring Dr.: Dr. Georgiana Littlejohn MD Status: REG R Insurance: MEDICARE PART A B Eval Date: COMMERCIAL OTHER Patient's Visit Information Visit Information Visit Information: SUZETTE PALOMINO is a 74 year old M, referred to Occupational Therapy by Dr. Georgiana Littlejohn MD, with a diagnosis of Palmar Fascial fibromatosis (Dupuytren's). Date of Evaluation: 06/08/24 Occupational Therapist: Saida Cruz OTAnabel/Lillie, CHT Subjective Subjective: This 74 year old male was seen for OT janetal with dx of Palmar fascial fibromatosis - Dupuytren contracture. pt states after he struggled with straightening his right RF and LF for a few years and decided to have sx. pt underwent open fasciotomy on 06/02/24. pt arrives today with paddle orthosis on. pt states he is limited with ADLs at this time due to healing wound and incision. pt is retired from [employer] and enjoys playing [employer]. Pt would like to return to [employer] by September. pt states he did receive [...] bruising/min edema noted on right hand Strength Coupon Collection Clerk: right NT left 90# Lateral Pinch: right NT left 28# Tripod Pinch: right NT left 20# Strength Comments: will test right at later date Sensation Thumb: right 2.83 left 2.83 Little: right 3.61 left 2.83 Quick DASH-Disab of Arm,Shoulder Hand Quick DASH Score: [phone] Goals Goal:Daily scar massage when approriate: Yes Goal:ROM equal to unaffected hand: Yes Goal:Coupon Collection Clerk/Pinch strength at least 75% of unaffected hand: Yes Goal:No pain with affected hand use: Yes Goal:Full use of affected hand in daily activities including work: Yes Goal:Improvement in sensation documented by Whitetail-Dusty monofiliaments: Yes Other Goal: orthosis use: pt [...] to be FAXED BACK to us at [phone] for Medicare purposes. Please let me know if there are questions or concerns regarding this plan of care. Physician Signature: Date : 06/08/24 1031 CC: Dr. Georgiana Mcfadden MD; Dr. Georgiana Littlejohn MD STEVEN Signed For Medicare only, by signing this I certify the plan of care. Physicians Signature Date Normal [facility] Gastroenterology Visit Repor ton 04-22-2024 Gastroenterology Visit Report [facility] [address] [place] [address] OFFICE VISIT Date of Service: 04/22/24 MR#: [id number] Acct: [id number] Name: SUZETTE PALOMINO Rep #: [id number] : 1950 Provider: Pantera Cervantes, Age/Sex: 74/M Location: [facility] [place] [place] Status: Signed Intake Vital Signs 03/27/23 10:01 Height 6 ft Intake Visit Reasons: 6 M FU Allergies No Known Allergies Allergy (Verified 06/29/23 13:02) Medications ???Medication ???Instructions ???Recorded ???Confirmed ???Type allopurinol 300 mg tablet 1 tab PO DAILY Check with primary 12/12/19 04/22/24 History doctor atorvastatin 10 mg tablet 1 tab PO DAILY cholesterol 12/12/19 04/22/24 History idrkfidj-zy-boxdh 300 mcg-K 60 1 tab PO DAILY [...] PO BID #120 04/04/24 04/22/24 Rx TABLETS ellwvi-fffiklhh-ebssp se 1 cap PO TID 3 months [...] TA polyp ? Esophageal Manometry 06.13.21 No [place] classification. Incomplete bolus clearance with every swallow [...] excess flatulence. Can use simethicone. ? Biochemical 02.19.23 RAST WNL OV 05.29.23 Nik has been continuing to have flatulence and intermittent urgent loose stools that he has been able to manageable to avoid severe life interference; lactaid, beano, gas-x have been ineffective and limiting fiber has been ineffective. Recently returned from travel to [place] and [facility]s. OV 10.15.23 Pt reports that he continues to have urgent loose stools once a week and is unable to identify trigger. States that he tried Colestipol 1g for a month and is unsure if (more content not included)... Normal [facility] PSA,Total- Diagnosticon 10-2 PSA, DIAGNOSTIC 2.78 ng/mL Normal 0.0-4.0 [facility] Comment on above: Result Comment: This test was performed using the TPSA assay method for the [employer] chemistry system. Values obtained with different assay methods cannot be used interchangably. When changing PSA assays in the course of monitoring a patient, additional sequential testing should be carried out to confirm baseline values. Performed By: #### L [id number] #### [facility] [address] [place], [address] Venous Duplex US - Harley Extre mon 01-25-2024 Venous Duplex US - Harley Extrem [facility] [address] [place] [address] Venous Duplex US - Harley Extrem 01/25/24 1453 MR#: [id number] Acct: [id number] Name: SUZETTE PALOMINO Rep #: [id number] : 1950 74 From: Sawyer Montenegro MD [...] Physician: Georgiana Mcfadden Performed By: Abdi Calderon, T 01/25/24 1832 Date Sawyer Montenegro MD CC: Dr. Georgiana Mcfadden MD Date Dictated: 01/25/241452 Date Transcribed: 01/25/241831 Marketing Secretary: Signed Normal [facility] Absolute lymphocyte countOrd ered By: Georgiana Mcfadden on 06-26-2023 Lymphocytes Auto (Unsp spec) [#/Vol] 1.55 10*3/uL 0.83-4.51 [facility] Automated lymphocyte count a s percentage of total leukocytesOrdered By: Georgiana Mcfadden on 06-26-2023 Lymphocytes/100 WBC Auto (Unsp spec) 24.4 % 19-41 [facility] Basophil percentageOrdered B y: Georgiana Mcfadden on 06-26-2023 Basophils/100 WBC (Bld) 1.3 % 0-1 [facility] Bilirubin [Mass/Vol] 0.70 mg/dL 0.20-1.00 [facility] Comment on above: For patients on eltr ombopag therapy, use of Dimension [place] TBIL is not recommended. Chloride [Moles/Vol] 108 mmol/L 98-107 [facility] Cholesterol [Mass/Vol] 151 mg/dL <200 [facility] Comment on above: <200 mg/dL Desirable 200-240 mg/dL Borderline >240 mg/dL High Risk Eosinophils/100 WBC (Bld) 2.5 % 0-5 [facility] Glucose [Mass/Vol] 89 mg/dL 74-106 [facility] Hemoglobin (Bld) [Mass/Vol] 15.0 g/dL 13.0-16.5 [facility] Monocytes/100 WBC (Bld) 7.7 % 0-10 [facility] Neutrophils (Bld) [#/Vol] 4.0 10*3/uL 2.0-7.7 [facility] Neutrophils/100 WBC (Bld) 63.6 % 47-70 [facility] Potassium [Moles/Vol] 4.0 mmol/L 3.5-5.1 [facility] Protein [Mass/Vol] 7.3 g/dL 6.4-8.2 [facility] Sodium [Moles/Vol] 141 mmol/L 136-145 [facility] Triglyceride [Mass/Vol] 154 mg/dL <199 [facility] Comment on above: The drugs N-Acetylcy steine and Metamizole may falsely depress this assay.Serum Triglycerides Reference Interval Normal <150 mg/dL Borderline high 150 - 199 mg/dL High 200 - 499 mg/dL Very High > or = 500 mg/dL WBC (Bld) [#/Vol] 6.4 10*3/uL 4.4-11.0 [facility] Determination of erythrocyte mean corpuscular volume (MCV)Ordered By: Georgiana Mcfadden on 06-26-2023 MCV (RBC) [Entitic vol] 90.2 fL 80-94 [facility] Erythrocyte distribution wid th ratioOrdered By: Georgiana Mcfadden on 06-26-2023 Erythrocyte distribution width (RBC) [Ratio] 14.4 % 11.6-14.6 [facility] Erythrocyte distribution wid th standard deviationOrdered By: Georgiana Mcfadden on 06-26-2023 Erythrocyte distribution width (RBC) [Entitic vol] 46.4 fL 35.1-43.9 [facility] Hematocrit Auto (Bld) [Volum e fraction]Ordered By: Georgiana Mcfadden on 06-26-2023 Hematocrit (Bld) [Volume fraction] 45.1 % 40-54 [facility] Immature granulocytes/100 WB C Auto (Bld)Ordered By: Georgiana Mcfadden on 06-26-2023 Immature granulocytes/100 WBC (Bld) 0.500 % 0.0-0.9 [facility] Comment on above: IG% - Immature Granu locytes (promyelocytes, myelocytes and metamyelocytes) > 1% indicates that a LEFT SHIFT is Present. Laboratory - Chemistry and C hemistry - challengeOrdered By: Georgiana Mcfadden on 06-26-2023 Albumin/Globulin [Mass ratio] 1.1 {ratio} 0.9-2.4 [facility] ALP [Catalytic activity/Vol] 73 U/L 45-117 [facility] ALT [Catalytic activity/Vol] 23 U/L 16-61 [facility] Cholesterol in HDL [Mass/Vol] 52 mg/dL >40 [facility] Comment on above: The drugs N-Acetylcy steine and Metamizole may falsely depress this assay. Reference Range HDL <40 mg/dL Low HDL Cholesterol HDL >or= 60 mg/dL High HDL Cholesterol Cholesterol in LDL [Mass/Vol] 68 mg/dL 0-130 [facility] CO2 [Moles/Vol] 26.0 mmol/L 21.0-32.0 [facility] Globulin (S) [Mass/Vol] 3.4 g/dL 2.2-4.2 [facility] Urea nitrogen/Creatinine [Mass ratio] 20.9 mg/mg 10-20 [facility] - Hematology and Cell countsOrdered By: Georgiana Mcfadden on 06-26-2023 MCH (RBC) [Entitic mass] 30.0 pg 27.0-32.0 [facility] MCHC (RBC) [Mass/Vol] 33.3 g/dL 32-36 [facility] Nucleated RBC/100 WBC (Bld) [Ratio] 0 % 0-5 [facility] Platelet mean volume (Bld) [Entitic vol] 8.7 fL 6.2-12.0 [facility] Platelets (Bld) [#/Vol] 241 10*3/uL 150-450 [facility] No Panel InformationOrdered By: Georgiana Mcfadden on 06-26-2023 Estimated GFR (MDRD) Amer 84 mL/min >60 [facility] Comment on above: GFR Calc Estimated GFR (MDRD) Non-Af Amer 70 mL/min >60 [facility] Comment on above: Non- GFR Calc VLDL Cholesterol 31 mg/dL 5-40 [facility] RBC Auto (Bld) [#/Vol]Ordere d By: Georgiana Mcfadden on 06-26-2023 RBC (Bld) [#/Vol] 5.00 10*6/uL 4.6-6.[address] [facility] Serum or plasma calcium flower urement (mass/volume)Ordered By: Georgiana Mcfadden on 06-26-2023 Calcium [Mass/Vol] 9.3 mg/dL 8.5-10.1 [facility] Serum or plasma creatinine m easurement (mass/volume)Ordered By: Gerogiana Mcfadden on 06-26-2023 Creatinine [Mass/Vol] 1.10 mg/dL 0.70-1.30 [facility] Comment on above: The validity of the calculated GFR & GFRAA in patients over 70 years has not been determined. Clinical correlation is essential. Serum or plasma thyroid stim ulating hormone (TSH) measurement (units/volume)Ordered By: Georgiana Mcfadden on 06-26-2023 TSH Qn 2.69 uIU/mL 0.358-3.74 [facility] Serum or plasma urea nitroge n measurement (mass/volume)Ordered By: Georgiana Mcfadden on 06-26-2023 Urea nitrogen [Mass/Vol] 23 mg/dL 7-18 [facility] Serum or plasma uric acid me asurement (mass/volume)Ordered By: Georgiana Mcfadden on 06-26-2023 Urate [Mass/Vol] 3.8 mg/dL 3.5-7.2 [facility] Comment on above: The drugs N-Acetylcy steine and Metamizole may falsely depress this assay. Thin prep Papanicolaou smear with manual screeningOrdered By: Georgiana Mcfadden on 06-26-2023 Thin prep Papanicolaou smear with manual screening 3.9 g/dL 3.2-5.0 [facility] Thin prep Papanicolaou smear with manual screening 15 U/L 15-37 [facility] Thin prep Papanicolaou smear with manual screening 7 5-15 [facility] Clostridioides difficile nuc leic acid assay by PCROrdered By: Pantera Cervantes on 06-03-2023 C. difficile DNA PADMINI+probe Ql (Unsp spec) [facility] - Microbiology an d Antimicrobial susceptibilityOrdered By: Pantera Cervantes on 06-03-2023 G. lamblia Ag IA.rapid Ql (Stl) [facility] G. lamblia Ag IA.rapid Ql (Stl) [facility] No Panel InformationOrdered By: Pantera Cervantes on 06-03-2023 Stool Calprotectin 15 ug/g 0-120 [facility] Comment on above: Concentration Interp retation Follow-Up< 5 - 50 ug/g Normal None>50 -120 ug/g Borderline Re-evaluate in 4-6 weeks >120 ug/g Abnormal Repeat as clinically indicatedPerformed at: [facility] [id number] Director: Laury Frias MD, Phone: [phone] Ova and parasitesOrdered By: Pantera Cervantes on 06-03-2023 Ova and parasites identified LM Nom (Unsp spec) [facility] Ova and parasites identified LM Nom (Unsp spec) [facility] Stool enteric pathogen panel by probe and target amplification methodOrdered By: Pantera Cervantes on 06-03-2023 Gastrointestinal pathogens panel PADMINI+probe (Stl) [facility] Stool lactoferrin detection by immunoassayOrdered By: Pantera Cervantes on 06-03-2023 Lactoferrin IA Ql (Stl) [facility] Stool pancreatic elastase me asurement (mass/mass)Ordered By: Pantera Cervantes on 06-03-2023 Elastase.pancreatic (Stl) [Mass/Mass] 242 >200 [facility] Comment on above: Result Units: ug [place] st./g Severe Pancreatic Insufficiency: <100 Moderate Pancreatic Insufficiency: 100 - 200 Normal: >200Performed at: [facility] [id number] Director: Laury Frias MD, Phone: [phone] Basophil percentageOrdered B y: Pantera Cervantes on 05-29-2023 Basophil percentage 0.2 AI 0.0-0.[address] [facility] Basophil percentage < 0.2 AI 0.0-0.[address] [facility] LDH [Catalytic activity/Vol] 219 U/L 87-241 [facility] Erythrocyte sedimentation ra teOrdered By: Pantera Cervantes on 05-29-2023 ESR (Bld) [Velocity] 6 mm/h 0-20 [facility] Immunoglobulin M measurement Ordered By: Pantera Cervantes on 05-29-2023 IgM (U) [Mass/Vol] 66 mg/dL 15-143 [facility] - Chemistry and C hemistry - challengeOrdered By: Pantera Cervantes on 05-29-2023 Cobalamin (Vitamin B12) [Mass/Vol] 488 pg/mL 211-911 [facility] Free T4 [Mass/Vol] 0.99 ng/dL 0.76-1.46 [facility] Lipase [Catalytic activity/Vol] 34 U/L 13-75 [facility] Comment on above: Please note:LIPASE r evised reference range effective 22. New Lipase methodology. Expected to produce lower values than the previous assay method. NEW Reference Range: 13 - 75 U/L No Panel InformationOrdered By: Pantera Cervantes on 05-29-2023 Centromere B Antibody <0.2 AI 0.0-0.9 [facility] Endomysial IgA Antibody Negative Negative [facility] Comment on above: Serum is slightly li pemic. Free Triiodothyronine (T3) pg/dL 2.4 pg/mL 2.18-3.98 [facility] Immunoglobulin E 15 IU/mL 6-495 [facility] Comment on above: Performed at: - [address] [id number] Director: Nagi Mark PhD, Phone: [phone] at: [facility] [id number] Director: Laury Frias MD, Phone: [phone] Immunoglobulin G4 23 mg/dL 2-96 [facility] [employer] WORKER Antibody 0.8 AI 0.0-0.9 [facility] Thyroid Stimulating Hormone (TSH) 2.64 uIU/mL 0.358-3.74 [facility] Serum DNA double strand anti body assay (units/volume)Ordered By: Pantera Cervantes on 05-29-2023 DNA double strand Ab Qn (S) [IU]/mL 0-9 [facility] Comment on above: Negative <5 Equivoca l 5 - 9 Positive >9 Serum IgG subclass 1 measure ment (mass/volume)Ordered By: Pantera Cervantes on 05-29-2023 IgG subclass 1 (S) [Mass/Vol] 588 mg/dL 248-810 [facility] Serum IgG subclass 2 measure ment (mass/volume)Ordered By: Pantera Cervantes on 05-29-2023 IgG subclass 2 (S) [Mass/Vol] 316 mg/dL 130-555 [facility] Serum IgG subclass 3 measure ment (mass/volume)Ordered By: Pantera Cervantes on 05-29-2023 IgG subclass 3 (S) [Mass/Vol] 65 mg/dL 15-102 [facility] Serum Laura-1 antibody assay (u nits/volume)Ordered By: Pantera Cervantes on 05-29-2023 Laura-1 extractable nuclear Ab Qn (S) <0.2 AI 0.0-0.9 [facility] Serum Scl-70 antibody assay (units/volume)Ordered By: Pantera Cervantes on 05-29-2023 SCL-70 extractable nuclear Ab Qn (S) <0.2 AI 0.0-0.9 [facility] Serum Friend antibody detecti onOrdered By: Pantera Cervantes on 05-29-2023 Friend extractable nuclear Ab Ql (S) <0.2 AI 0.0-0.9 [facility] Serum or plasma C reactive p rotein measurement (mass/volume)Ordered By: Pantera Cervantes on 05-29-2023 CRP [Mass/Vol] mg/L 0.0-3.0 [facility] Comment on above: C-Reactive Protein ( CRP) provides useful information for thediagnosis, therapy and monitoring of inflammatory processesand associated diseases. For the evaluation of Relative Riskfor Cardiovascular Disease, a High Sensitivity CRP (HSCRP)should be ordered. Serum or plasma IgA measurem ent (mass/volume)Ordered By: Pantera Cervantes on 05-29-2023 IgA [Mass/Vol] 215 mg/dL 61-437 [facility] Serum or plasma IgG measurem ent (mass/volume)Ordered By: Pantera Cervantes on 05-29-2023 IgG [Mass/Vol] Not Reportable [facility] IgG [Mass/Vol] 1076 mg/dL 603-1613 [facility] Serum tissue transglutaminas e IgA antibody assay (units/volume)Ordered By: Pantera Cervantes on 05-29-2023 tTG IgA Qn (S) <2 U/mL 0-3 [facility] Comment on above: Negative 0 - 3 Weak Positive 4 - 10 Positive >10 Tissue Transglutaminase (tTG) has been identified as the endomysial antigen. Studies have demonstr- ated that endomysial IgA antibodies have over 99% specificity for gluten sensitive enteropathy. Whole blood hemoglobin A1c/t otal hemoglobin ratio (mass fraction)Ordered By: Pantera Cervantes on 05-29-2023 HbA1c (Bld) [Mass fraction] 5.4 % 3.8-5.6 [facility] Comment on above: Normal < 5.7 % Predi abetic 5.7 - 6.4 % Diabetic >or= 6.5 % Please note range changes. No Panel InformationOrdered By: Georgiana Mcfadden on 03-24-2023 Prostate Specific Antigen Screen 2.66 ng/mL 0.00-4.00 [facility] Comment on above: This test was perfor med using the TPSA assay method [facility] the[facility]. Values obtained with differentassay methods cannot be used interchangably.When changing PSA assays in the course of monitoring apatient, additional sequential testing should be carriedout to confirm baseline values. Barnett's yeast IgE serumOrde red By: Forrest Partida on 02-19-2023 Barnett's yeast IgE Qn (S) <0.10 kU/L Class 0 [facility] - Miscellaneous t estsOrdered By: Forrest Partida on 02-19-2023 Service comment (Unsp spec) [Interp] Comment . [facility] Comment on above: Levels of Specific I [...] Partida on 02-19-2023 Miscellaneous Test See comment [facility] Comment on above: TEST RESULTS LIMITSF 036-[id number] Coconut <0.10 kU/L Class 0 TESTING PERFORMED AT [facility]. ORIGINAL REPORT ON FILE IN LAB CONTAINS ADDITIONAL TEST SITE INFORMATION. Scallop Allergen <0.10 kU/L Class 0 [facility] Sesame Seed Allergen IgE Antibody <0.10 kU/L Class 0 [facility] Shrimp Allergen <0.10 kU/L Class 0 [facility] Serum Ustilago avenae IgE an tibody assay (units/volume)Ordered By: Forrest Partida on 02-19-2023 Oat smut IgE Qn (S) <0.10 kU/L Class [address] [facility] Serum banana IgE antibody as say (units/volume)Ordered By: Forrest Partida on 02-19-2023 Banana IgE Qn (S) <0.10 kU/L Class 0 [facility] Comment on above: Performed at: [address] [id number] Director: Laury Frias MD, Phone: [phone] Serum black walnut IgE antib fredrick assay (units/volume)Ordered By: Forrest Partida on 02-19-2023 Black Cades IgE Qn (S) <0.10 kU/L Class 0 [facility] Serum cashew nut IgE antibod y assay (units/volume)Ordered By: Forrest Partida on 02-19-2023 Cashew nut IgE Qn (S) <0.10 kU/L Class 0 [facility] Serum clam IgE antibody assa y (units/volume)Ordered By: Forrest Partida on 02-19-2023 Clam IgE Qn (S) <0.10 kU/L Class 0 [facility] Serum codfish IgE antibody a ssay (units/volume)Ordered By: Forrest Partida on 02-19-2023 Codfish IgE Qn (S) <0.10 kU/L Class 0 [facility] Serum corn IgE antibody assa y (units/volume)Ordered By: Forrest Partida on 02-19-2023 Kittery IgE Qn (S) <0.10 kU/L Class 0 [facility] Serum cow milk IgE antibody assay (units/volume)Ordered By: Forrest Partida on 02-19-2023 Cow milk IgE Qn (S) <0.10 kU/L Class [address] [facility] Serum egg white IgE antibody assay (units/volume)Ordered By: Forrest Partida on 02-19-2023 Egg white IgE Qn (S) <0.10 kU/L Class 0 [facility] Serum garlic IgE antibody as say (units/volume)Ordered By: Forrest Partida on 02-19-2023 Garlic IgE Qn (S) <0.10 kU/L Class 0 [facility] Serum lobster IgE antibody a ssay (units/volume)Ordered By: Forrest Partida on 02-19-2023 Lobster IgE Qn (S) <0.10 kU/L Class 0 [facility] Serum onion IgE antibody ass ay (units/volume)Ordered By: Forrest Partida on 02-19-2023 Onion IgE Qn (S) <0.10 kU/L Class 0 [facility] Serum peanut IgE antibody as say (units/volume)Ordered By: Forrest Partida on 02-19-2023 Peanut IgE Qn (S) <0.10 kU/L Class 0 [facility] Serum soybean IgE antibody a ssay (units/volume)Ordered By: Forrestmichelle Partida on 02-19-2023 Soybean IgE Qn (S) <0.10 kU/L Class 0 [facility] Serum tomato IgE antibody as say (units/volume)Ordered By: Forrestmichelle Partida on 02-19-2023 Tomato IgE Qn (S) <0.10 kU/L Class 0 [facility] Serum wheat IgE antibody ass ay (units/volume)Ordered By: Forrest Partida on 02-19-2023 Wheat IgE Qn (S) <0.10 kU/L Class 0 [facility] Absolute lymphocyte countOrd ered By: Georgiana Mcfadden on 12-11-2022 Lymphocytes Auto (Unsp spec) [#/Vol] 1.60 10*3/uL 0.83-4.51 [facility] Basophil percentageOrdered B y: Georgiana Mcfadden on 12-11-2022 Basophil percentage 0 SEEN /hpf 0-5 [facility] Basophils/100 WBC (Bld) 1.4 % 0-1 [facility] Bilirubin [Mass/Vol] 0.90 mg/dL 0.20-1.00 [facility] Comment on above: For patients on eltr ombopag therapy, use of Dimension [place] TBIL is not recommended. Chloride [Moles/Vol] 108 mmol/L 98-107 [facility] Cholesterol [Mass/Vol] 134 mg/dL <200 [facility] Comment on above: <200 mg/dL Desirable 200-240 mg/dL Borderline >240 mg/dL High Risk Eosinophils/100 WBC (Bld) 2.9 % 0-5 [facility] Glucose [Mass/Vol] 97 mg/dL 74-106 [facility] Neutrophils (Bld) [#/Vol] 3.3 10*3/uL 2.0-7.7 [facility] Neutrophils/100 WBC (Bld) 57.8 % 47-70 [facility] Potassium [Moles/Vol] 4.2 mmol/L 3.5-5.1 [facility] Protein [Mass/Vol] 6.6 g/dL 6.4-8.2 [facility] Sodium [Moles/Vol] 140 mmol/L 136-145 [facility] Triglyceride [Mass/Vol] 105 mg/dL <199 [facility] Comment on above: The drugs N-Acetylcy steine and Metamizole may falsely depress this assay.Serum Triglycerides Reference Interval Normal <150 mg/dL Borderline high 150 - 199 mg/dL High 200 - 499 mg/dL Very High > or = 500 mg/dL WBC (Bld) [#/Vol] 5.8 10*3/uL 4.4-11.0 [facility] Bilirubin Test strip Ql (U)O rdered By: Georgiana Mcfadden on 12-11-2022 Bilirubin Ql (U) Negative Negative [facility] Blood erythrocytes count (nu mber/volume)Ordered By: Georgiana Mcfadden on 12-11-2022 RBC (Bld) [#/Vol] 4.82 10*6/uL 4.6-6.[address] [facility] Blood hemoglobin measurement (mass/volume)Ordered By: Georgiana Mcfadden on 12-11-2022 Hemoglobin (Bld) [Mass/Vol] 14.8 g/dL 13.0-16.5 [facility] Blood lymphocytes/100 leukoc ytesOrdered By: Georgiana Mcfadden on 12-11-2022 Lymphocytes/100 WBC (Bld) 27.7 % 19-41 [facility] Blood monocytes/100 leukocyt esOrdered By: Georgiana Mcfadden on 12-11-2022 Monocytes/100 WBC (Bld) 9.5 % 0-10 [facility] Blood platelet mean volumeOr dered By: Georgiana Mcfadden on 12-11-2022 Platelet mean volume (Bld) [Entitic vol] 9.0 fL 6.2-12.0 [facility] Determination of erythrocyte mean corpuscular volume (MCV)Ordered By: Georgiana Mcfadden on 12-11-2022 MCV (RBC) [Entitic vol] 92.1 fL 80-94 [facility] Hematocrit Auto (Bld) [Volum e fraction]Ordered By: Georgiana Mcfadden on 12-11-2022 Hematocrit (Bld) [Volume fraction] 44.4 % 40-54 [facility] Ketones Test strip Ql (U)Ord ered By: Georgiana Mcfadden on 12-11-2022 Ketones Ql (U) Negative Negative [facility] - Chemistry and C hemistry - challengeOrdered By: Georgiana Mcfadden on 12-11-2022 ALP [Catalytic activity/Vol] 68 U/L 45-117 [facility] ALT [Catalytic activity/Vol] 22 U/L 16-61 [facility] CO2 [Moles/Vol] 26.0 mmol/L 21.0-32.0 [facility] Globulin (S) [Mass/Vol] 3.1 g/dL 2.2-4.2 [facility] Urea nitrogen/Creatinine [Mass ratio] 18.5 mg/mg 10-20 [facility] - Hematology and Cell countsOrdered By: Georgiana Mcfadden on 12-11-2022 Erythrocyte distribution width (RBC) [Entitic vol] 46.1 fL 35.1-43.9 [facility] Erythrocyte distribution width (RBC) [Ratio] 13.7 % 11.6-14.6 [facility] Immature granulocytes/100 WBC (Bld) 0.700 % 0.0-0.9 [facility] Comment on above: IG% - Immature Granu locytes (promyelocytes, myelocytes and metamyelocytes) > 1% indicates that a LEFT SHIFT is Present. MCH (RBC) [Entitic mass] 30.7 pg 27.0-32.0 [facility] Nucleated RBC/100 WBC (Bld) [Ratio] 0 % 0-5 [facility] MCHC Auto (RBC) [Mass/Vol]Or dered By: Georgiana Mcfadden on 12-11-2022 MCHC (RBC) [Mass/Vol] 33.3 g/dL 32-36 [facility] Mucus LM Ql (Urine sed)Order ed By: Georgiana Mcfadden on 12-11-2022 Mucus Ql (Urine sed) 0 SEEN /hpf [facility] Nitrite Test strip Ql (U)Ord ered By: Georgiana Mcfadden on 12-11-2022 Nitrite Ql (U) Negative Negative [facility] No Panel InformationOrdered By: Georgiana Mcfadden on 12-11-2022 Estimated GFR (MDRD) Amer 77 mL/min >60 [facility] Comment on above: GFR Calc Estimated GFR (MDRD) Non-Af Amer 64 mL/min >60 [facility] Comment on above: Non- GFR Calc Thyroid Stimulating Hormone (TSH) 2.95 uIU/mL 0.358-3.74 [facility] Platelets bldOrdered By: Bob Mcfadden on 12-11-2022 Platelets (Bld) [#/Vol] 212 10*3/uL 150-450 [facility] Protein Test strip Ql (U)Ord ered By: Georgiana Mcfadden on 12-11-2022 Protein Ql (U) Negative Negative [facility] Serum or plasma albumin flower urement (mass/volume)Ordered By: Georgiana Mcfadden on 12-11-2022 Albumin [Mass/Vol] 3.5 g/dL 3.2-5.0 [facility] Serum or plasma albumin/glob ulin mass ratioOrdered By: Georgiana Mcfadden on 12-11-2022 Albumin/Globulin [Mass ratio] 1.1 {ratio} 0.9-2.4 [facility] Serum or plasma calcium flower urement (mass/volume)Ordered By: Georgiana Mcfadden on 12-11-2022 Calcium [Mass/Vol] 8.7 mg/dL 8.5-10.1 [facility] Serum or plasma cholesterol in HDL measurement (mass/volume)Ordered By: Georgiana Mcfadden on 12-11-2022 Cholesterol in HDL [Mass/Vol] 52 mg/dL >40 [facility] Comment on above: The drugs N-Acetylcy steine and Metamizole may falsely depress this assay. Reference Range HDL <40 mg/dL Low HDL Cholesterol HDL >or= 60 mg/dL High HDL Cholesterol Serum or plasma cholesterol in VLDL measurement (mass/volume)Ordered By: Georgiana Mcfadden on 12-11-2022 Cholesterol in VLDL [Mass/Vol] 21 mg/dL 5-40 [facility] Serum or plasma creatinine m easurement (mass/volume)Ordered By: Georgiana Mcfadden on 12-11-2022 Creatinine [Mass/Vol] 1.19 mg/dL 0.70-1.30 [facility] Comment on above: The validity of the calculated GFR & GFRAA in patients over 70 years has not been determined. Clinical correlation is essential. Serum or plasma low density lipoprotein (LDL) cholesterol measurement (mass/volume)Ordered By: Georgiana Mcfadden on 12-11-2022 Cholesterol in LDL [Mass/Vol] 61 mg/dL 0-130 [facility] Serum or plasma urea nitroge n measurement (mass/volume)Ordered By: Georgiana Mcfadden on 12-11-2022 Urea nitrogen [Mass/Vol] 22 mg/dL 7-18 [facility] Serum or plasma uric acid me asurement (mass/volume)Ordered By: Georgiana Mcfadden on 12-11-2022 Urate [Mass/Vol] 4.7 mg/dL 3.5-7.2 [facility] Comment on above: The drugs N-Acetylcy steine and Metamizole may falsely depress this assay. Squamous epithelial cells de tection in urine sediment by light microscopyOrdered By: Georgiana Mcfadden on 12-11-2022 Epithelial cells.squamous LM Ql (Urine sed) 0 SEEN /hpf 0-5 [facility] Thin prep Papanicolaou smear with manual screeningOrdered By: Georgiana Mcfadden on 12-11-2022 Thin prep Papanicolaou smear with manual screening 20 U/L 15-37 [facility] Thin prep Papanicolaou smear with manual screening 6 5-15 [facility] Urine blood detectionOrdered By: Georgiana Mcfadden on 12-11-2022 RBC Ql (U) Negative Negative [facility] RBC Ql (U) 0 SEEN /hpf 0-5 [facility] Urine clarityOrdered By: Bob Mcfadden on 12-11-2022 Clarity (U) Clear Clear [facility] Urine color determinationOrd ered By: Georgiana Mcfadden on 12-11-2022 Color (U) Yellow Yellow [facility] Urine glucose detectionOrder ed By: Georgiana Mcfadden on 12-11-2022 Glucose Ql (U) Normal mg/dl Normal [facility] Urine leukocyte esterase det ection by dipstickOrdered By: Georgiana Mcfadden on 12-11-2022 Leukocyte esterase Test strip Ql (U) Negative Negative [facility] Urine pHOrdered By: Georgiana quezada on 12-11-2022 pH (U) 5.0 [pH] 5.0 - 8.0 [facility] Urine sediment bacteria coun t by microscopy (number/high power field)Ordered By: Georgiana Mcfadden on 12-11-2022 Bacteria LM.HPF (Urine sed) [#/Area] 0 /[HPF] None Seen [facility] Urine specific gravity measu rementOrdered By: Georgiana Mcfadden on 12-11-2022 Specific gravity (U) [Rel density] 1.025 1.002-1.030 [facility] Urobilinogen Auto test strip Ql (U)Ordered By: Georgiana Mcfadden on 12-11-2022 Urobilinogen Ql (U) Normal mg/dl Normal [facility] Absolute lymphocyte counton 03-24-2022 Lymphocytes Auto (Unsp spec) [#/Vol] 1.84 10*3/uL 0.83-4.51 [facility] Work Phone: Basophil percentageon 2021 Basophils/100 WBC (Bld) 1.5 % 0-1 [facility] Work Phone: Bilirubin [Mass/Vol] 1.00 mg/dL 0.20-1.00 [facility] Work Phone: Comment on above: For patients on eltr ombopag therapy, use of Dimension [place] TBIL is not recommended. Chloride [Moles/Vol] 107 mmol/L 98-107 [facility] Work Phone: Cholesterol [Mass/Vol] 158 mg/dL <200 [facility] Work Phone: Comment on above: <200 mg/dL Desirable 200-240 mg/dL Borderline >240 mg/dL High Risk Eosinophils/100 WBC (Bld) 2.2 % 0-5 [facility] Work Phone: Glucose [Mass/Vol] 88 mg/dL 74-106 [facility] Work Phone: Neutrophils (Bld) [#/Vol] 2.9 10*3/uL 2.0-7.7 [facility] Work Phone: Neutrophils/100 WBC (Bld) 53.4 % 47-70 [facility] Work Phone: Potassium [Moles/Vol] 4.1 mmol/L 3.5-5.1 [facility] Work Phone: Protein [Mass/Vol] 7.1 g/dL 6.4-8.2 [facility] Work Phone: Sodium [Moles/Vol] 140 mmol/L 136-145 [facility] Work Phone: Triglyceride [Mass/Vol] 108 mg/dL <199 [facility] Work Phone: Comment on above: The drugs N-Acetylcy steine and Metamizole may falsely depress this assay.Serum Triglycerides Reference Interval Normal <150 mg/dL Borderline high 150 - 199 mg/dL High 200 - 499 mg/dL Very High > or = 500 mg/dL WBC (Bld) [#/Vol] 5.3 10*3/uL 4.4-11.0 [facility] Work Phone: Blood erythrocytes count (nu mber/volume)on 03-24-2022 RBC (Bld) [#/Vol] 5.03 10*6/uL 4.6-6.[address] [facility] Work Phone: Blood hemoglobin measurement (mass/volume)on 03-24-2022 Hemoglobin (Bld) [Mass/Vol] 15.2 g/dL 13.0-16.5 [facility] Work Phone: Blood lymphocytes/100 leukoc yteson 03-24-2022 Lymphocytes/100 WBC (Bld) 34.5 % 19-41 [facility] Work Phone: Blood monocytes/100 leukocyt eson 03-24-2022 Monocytes/100 WBC (Bld) 8.2 % 0-10 [facility] Work Phone: Blood platelet mean volumeon 03-24-2022 Platelet mean volume (Bld) [Entitic vol] 8.8 fL 6.2-12.0 [facility] Work Phone: Determination of erythrocyte mean corpuscular volume (MCV)on 03-24-2022 MCV (RBC) [Entitic vol] 90.3 fL 80-94 [facility] Work Phone: [phone] Hematocrit Auto (Bld) [Volum e fraction]on 03-24-2022 Hematocrit (Bld) [Volume fraction] 45.4 % 40-54 [facility] Work Phone: [phone] Laboratory - Chemistry and C hemistry - challengeon 03-24-2022 ALP [Catalytic activity/Vol] 70 U/L 45-117 [facility] Work Phone: ALT [Catalytic activity/Vol] 26 U/L 16-61 [facility] Work Phone: [phone] CO2 [Moles/Vol] 26.0 mmol/L 21.0-32.0 [facility] Work Phone: [phone] Globulin (S) [Mass/Vol] 3.3 g/dL 2.2-4.2 [facility] Work Phone: [phone] Urea nitrogen/Creatinine [Mass ratio] 21.8 mg/mg 10-20 [facility] Work Phone: Laboratory - Hematology and Cell countson 03-24-2022 Erythrocyte distribution width (RBC) [Entitic vol] 50.9 fL 35.1-43.9 [facility] Work Phone: [phone] Erythrocyte distribution width (RBC) [Ratio] 15.4 % 11.6-14.6 [facility] Work Phone: [phone] Immature granulocytes/100 WBC (Bld) 0.200 % 0.0-0.9 [facility] Work Phone: [phone] Comment on above: IG% - Immature Granu locytes (promyelocytes, myelocytes and metamyelocytes) > 1% indicates that a LEFT SHIFT is Present. MCH (RBC) [Entitic mass] 30.2 pg 27.0-32.0 [facility] Work Phone: [phone] Nucleated RBC/100 WBC (Bld) [Ratio] 0 % 0-5 [facility] Work Phone: [phone] MCHC Auto (RBC) [Mass/Vol]on 03-24-2022 MCHC (RBC) [Mass/Vol] 33.5 g/dL 32-36 [facility] Work Phone: No Panel Informationon 03-24 Prostate Specific Antigen Total 2.36 ng/mL 0.0-4.0 [facility] Work Phone: Comment on above: This test was perfor med using the TPSA assay method for CELLFOR chemistry system. Values obtained with differentassay methods cannot be used interchangably.When changing PSA assays in the course of monitoring apatient, additional sequential testing should be carriedout to confirm baseline values. Estimated GFR (MDRD) Amer 77 mL/min >60 [facility] Work Phone: Comment on above: GFR Calc Estimated GFR (MDRD) Non-Af Amer 64 mL/min >60 [facility] Work Phone: Comment on above: Non- GFR Calc Platelets bldon 03-24-2022 Platelets (Bld) [#/Vol] 282 10*3/uL 150-450 [facility] Work Phone: Serum or plasma albumin flower urement (mass/volume)on 03-24-2022 Albumin [Mass/Vol] 3.8 g/dL 3.2-5.0 [facility] Work Phone: Serum or plasma albumin/glob ulin mass ratioon 03-24-2022 Albumin/Globulin [Mass ratio] 1.2 {ratio} 0.9-2.4 [facility] Work Phone: Serum or plasma calcium flower urement (mass/volume)on 03-24-2022 Calcium [Mass/Vol] 9.0 mg/dL 8.5-10.1 [facility] Work Phone: Serum or plasma cholesterol in HDL measurement (mass/volume)on 03-24-2022 Cholesterol in HDL [Mass/Vol] 62 mg/dL >40 [facility] Work Phone: Comment on above: The drugs N-Acetylcy steine and Metamizole may falsely depress this assay. Reference Range HDL <40 mg/dL Low HDL Cholesterol HDL >or= 60 mg/dL High HDL Cholesterol Serum or plasma cholesterol in VLDL measurement (mass/volume)on 03-24-2022 Cholesterol in VLDL [Mass/Vol] 22 mg/dL 5-40 [facility] Work Phone: Serum or plasma creatinine m easurement (mass/volume)on 03-24-2022 Creatinine [Mass/Vol] 1.19 mg/dL 0.70-1.30 [facility] Work Phone: Comment on above: The validity of the calculated GFR & GFRAA in patients over 70 years has not been determined. Clinical correlation is essential. Serum or plasma low density lipoprotein (LDL) cholesterol measurement (mass/volume)on 03-24-2022 Cholesterol in LDL [Mass/Vol] 74 mg/dL 0-130 [facility] Work Phone: Serum or plasma urea nitroge n measurement (mass/volume)on 03-24-2022 Urea nitrogen [Mass/Vol] 26 mg/dL 7-18 [facility] Work Phone: Thin prep Papanicolaou smear with manual screeningon 03-24-2022 Thin prep Papanicolaou smear with manual screening 15 U/L 15-37 [facility] Work Phone: Thin prep Papanicolaou smear with manual screening 7 5-15 [facility] Work Phone: Absolute lymphocyte counton 10-22-2021 Lymphocytes Auto (Unsp spec) [#/Vol] 1.68 10*3/uL 0.83-4.51 [facility] Work Phone: Basophil percentageon 2021 Basophil percentage 0 SEEN /hpf [facility] Work Phone: Basophils/100 WBC (Bld) 1.3 % 0-1 [facility] Work Phone: Bilirubin [Mass/Vol] 0.90 mg/dL 0.20-1.00 [facility] Work Phone: Comment on above: For patients on eltr ombopag therapy, use of Dimension [place] TBIL is not recommended. Chloride [Moles/Vol] 107 mmol/L 98-107 [facility] Work Phone: Cholesterol [Mass/Vol] 141 mg/dL <200 [facility] Work Phone: Comment on above: <200 mg/dL Desirable 200-240 mg/dL Borderline >240 mg/dL High Risk Eosinophils/100 WBC (Bld) 2.3 % 0-5 [facility] Work Phone: Glucose [Mass/Vol] 92 mg/dL 74-106 [facility] Work Phone: Neutrophils (Bld) [#/Vol] 3.1 10*3/uL 2.0-7.7 [facility] Work Phone: Neutrophils/100 WBC (Bld) 56.5 % 47-70 [facility] Work Phone: Potassium [Moles/Vol] 3.9 mmol/L 3.5-5.1 [facility] Work Phone: Protein [Mass/Vol] 6.7 g/dL 6.4-8.2 [facility] Work Phone: Sodium [Moles/Vol] 138 mmol/L 136-145 [facility] Work Phone: Triglyceride [Mass/Vol] 123 mg/dL [facility] Work Phone: Comment on above: The drugs N-Acetylcy steine and Metamizole may falsely depress this assay.Serum Triglycerides Reference Interval Normal <150 mg/dL Borderline high 150 - 199 mg/dL High 200 - 499 mg/dL Very High > or = 500 mg/dL WBC (Bld) [#/Vol] 5.6 10*3/uL 4.4-11.0 [facility] Work Phone: Bilirubin Test strip Ql (U)o n 10-22-2021 Bilirubin Ql (U) Negative Negative [facility] Work Phone: Blood erythrocytes count (nu mber/volume)on 10-22-2021 RBC (Bld) [#/Vol] 4.90 10*6/uL 4.6-6.2 [facility] Work Phone: Blood hemoglobin measurement (mass/volume)on 10-22-2021 Hemoglobin (Bld) [Mass/Vol] 13.7 g/dL 13.0-16.5 [facility] Work Phone: Blood lymphocytes/100 leukoc yteson 10-22-2021 Lymphocytes/100 WBC (Bld) 30.3 % 19-41 [facility] Work Phone: Blood monocytes/100 leukocyt eson 10-22-2021 Monocytes/100 WBC (Bld) 9.2 % 0-10 [facility] Work Phone: Blood platelet mean volumeon 10-22-2021 Platelet mean volume (Bld) [Entitic vol] 9.0 fL 6.2-12.0 [facility] Work Phone: Determination of erythrocyte mean corpuscular volume (MCV)on 10-22-2021 MCV (RBC) [Entitic vol] 86.5 fL 80-94 [facility] Work Phone: Hematocrit Auto (Bld) [Volum e fraction]on 10-22-2021 Hematocrit (Bld) [Volume fraction] 42.4 % 40-54 [facility] Work Phone: Ketones Test strip Ql (U)on 10-22-2021 Ketones Ql (U) Negative Negative [facility] Work Phone: Laboratory - Chemistry and C hemistry - challengeon 10-22-2021 ALP [Catalytic activity/Vol] 75 U/L 45-117 [facility] Work Phone: ALT [Catalytic activity/Vol] 19 U/L 16-61 [facility] Work Phone: CO2 [Moles/Vol] 24.0 mmol/L 21.0-32.0 [facility] Work Phone: Globulin (S) [Mass/Vol] 3.2 g/dL 2.2-4.2 [facility] Work Phone: Urea nitrogen/Creatinine [Mass ratio] 14.4 mg/mg 10-20 [facility] Work Phone: Laboratory - Hematology and Cell countson 10-22-2021 Erythrocyte distribution width (RBC) [Entitic vol] 45.7 fL 35.1-43.9 [facility] Work Phone: Erythrocyte distribution width (RBC) [Ratio] 14.5 % 11.6-14.6 [facility] Work Phone: Immature granulocytes/100 WBC (Bld) 0.400 % 0.0-0.9 [facility] Work Phone: Comment on above: IG% - Immature Granu locytes (promyelocytes, myelocytes and metamyelocytes) > 1% indicates that a LEFT SHIFT is Present. MCH (RBC) [Entitic mass] 28.0 pg 27.0-32.0 [facility] Work Phone: Nucleated RBC/100 WBC (Bld) [Ratio] 0 % 0-5 [facility] Work Phone: MCHC Auto (RBC) [Mass/Vol]on 10-22-2021 MCHC (RBC) [Mass/Vol] 32.3 g/dL 32-36 [facility] Work Phone: Mucus LM Ql (Urine sed)on Mucus Ql (Urine sed) 0 SEEN /hpf [facility] Work Phone: Nitrite Test strip Ql (U)on 10-22-2021 Nitrite Ql (U) Negative Negative [facility] Work Phone: No Panel Informationon 10-22 Estimated GFR (MDRD) Amer 90 mL/min >60 [facility] Work Phone: Comment on above: GFR Calc Estimated GFR (MDRD) Non-Af Amer 75 mL/min >60 [facility] Work Phone: Comment on above: Non- GFR Calc Platelets bldon 10-22-2021 Platelets (Bld) [#/Vol] 263 10*3/uL 150-450 [facility] Work Phone: Protein Test strip Ql (U)on 10-22-2021 Protein Ql (U) Negative Negative [facility] Work Phone: Serum or plasma albumin flower urement (mass/volume)on 10-22-2021 Albumin [Mass/Vol] 3.5 g/dL 3.2-5.0 [facility] Work Phone: Serum or plasma albumin/glob ulin mass ratioon 10-22-2021 Albumin/Globulin [Mass ratio] 1.1 {ratio} 0.9-2.4 [facility] Work Phone: Serum or plasma calcium flwoer urement (mass/volume)on 10-22-2021 Calcium [Mass/Vol] 8.7 mg/dL 8.5-10.1 [facility] Work Phone: Serum or plasma cholesterol in HDL measurement (mass/volume)on 10-22-2021 Cholesterol in HDL [Mass/Vol] 49 mg/dL [facility] Work Phone: Comment on above: The drugs N-Acetylcy steine and Metamizole may falsely depress this assay. Reference Range HDL <40 mg/dL Low HDL Cholesterol HDL >or= 60 mg/dL High HDL Cholesterol Serum or plasma cholesterol in VLDL measurement (mass/volume)on 10-22-2021 Cholesterol in VLDL [Mass/Vol] 25 mg/dL 5-40 [facility] Work Phone: Serum or plasma creatinine m easurement (mass/volume)on 10-22-2021 Creatinine [Mass/Vol] 1.04 mg/dL 0.70-1.30 [facility] Work Phone: Comment on above: The validity of the calculated GFR & GFRAA in patients over 70 years has not been determined. Clinical correlation is essential. Serum or plasma low density lipoprotein (LDL) cholesterol measurement (mass/volume)on 10-22-2021 Cholesterol in LDL [Mass/Vol] 67 mg/dL 0-130 [facility] Work Phone: Serum or plasma urea nitroge n measurement (mass/volume)on 10-22-2021 Urea nitrogen [Mass/Vol] 15 mg/dL 7-18 [facility] Work Phone: Serum or plasma uric acid me asurement (mass/volume)on 10-22-2021 Urate [Mass/Vol] 4.5 mg/dL 3.5-7.2 [facility] Work Phone: Comment on above: The drugs N-Acetylcy steine and Metamizole may falsely depress this assay. Squamous epithelial cells de tection in urine sediment by light microscopyon 10-22-2021 Epithelial cells.squamous LM Ql (Urine sed) 0 SEEN /hpf [facility] Work Phone: Thin prep Papanicolaou smear with manual screeningon 10-22-2021 Thin prep Papanicolaou smear with manual screening 17 U/L 15-37 [facility] Work Phone: Thin prep Papanicolaou smear with manual screening 7 5-15 [facility] Work Phone: Urine blood detectionon - RBC Ql (U) Negative Negative [facility] Work Phone: RBC Ql (U) 0 SEEN /hpf [facility] Work Phone: Urine clarityon 10-22-2021 Clarity (U) Clear Clear [facility] Work Phone: Urine color determinationon 10-22-2021 Color (U) Yellow Yellow [facility] Work Phone: Urine glucose detectionon Glucose Ql (U) Normal mg/dl Normal [facility] Work Phone: Urine leukocyte esterase det ection by dipstickon 10-22-2021 Leukocyte esterase Test strip Ql (U) 25 /ul Negative [facility] Work Phone: Urine pHon 10-22-2021 pH (U) 8.0 [pH] [facility] Work Phone: Urine sediment bacteria coun t by microscopy (number/high power field)on 10-22-2021 Bacteria LM.HPF (Urine sed) [#/Area] 0 /[HPF] None Seen [facility] Work Phone: Urine specific gravity measu rementon 10-22-2021 Specific gravity (U) [Rel density] 1.010 [facility] Work Phone: Urobilinogen Auto test strip Ql (U)on 10-22-2021 Urobilinogen Ql (U) Normal mg/dl Normal [facility] Work Phone: No Panel Informationon 09-19 Prostate Specific Antigen Total 10.00 ng/mL 0.0-4.0 [facility] Work Phone: Comment on above: This test was perfor med using the TPSA assay method for [employer] chemistry system. Values obtained with differentassay methods cannot be used interchangably.When changing PSA assays in the course of monitoring apatient, additional sequential testing should be carriedout to confirm baseline values. CR Chest PA/LATon 08-27-2021 CR Chest PA/LAT Patient Name: SUZETTE PALOMINO Diagnostic Radiology ACCESSION EXAM DATE/TIME PROCEDURE ORDERING PROVIDER [id number] 08/27/2021 14:19 EDT CR Chest PA and LAT MELVA MCGOVERN, LISSETTE Quinonez CPT code 77333 Reason For Exam (CR Chest PA and [...] Transcribed Date and Time: 08/27/2021 2:48 Normal [facility] Absolute lymphocyte counton 08-08-2021 Lymphocytes Auto (Unsp spec) [#/Vol] 1.74 10*3/uL 0.83-4.51 [facility] Work Phone: [phone] Basophil percentageon 2021 Basophils/100 WBC (Bld) 1.0 % 0-1 [facility] Work Phone: Eosinophils/100 WBC (Bld) 2.8 % 0-5 [facility] Work Phone: Neutrophils (Bld) [#/Vol] 5.7 10*3/uL 2.0-7.7 [facility] Work Phone: Neutrophils/100 WBC (Bld) 64.2 % 47-70 [facility] Work Phone: WBC (Bld) [#/Vol] 8.8 10*3/uL 4.4-11.0 [facility] Work Phone: [phone] Blood erythrocytes count (nu mber/volume)on 08-08-2021 RBC (Bld) [#/Vol] 4.32 10*6/uL 4.6-6.[address] [facility] Work Phone: [phone] Blood hemoglobin measurement (mass/volume)on 08-08-2021 Hemoglobin (Bld) [Mass/Vol] 13.2 g/dL 13.0-16.5 [facility] Work Phone: [phone] Blood lymphocytes/100 leukoc yteson 08-08-2021 Lymphocytes/100 WBC (Bld) 19.8 % 19-41 [facility] Work Phone: Blood monocytes/100 leukocyt eson 08-08-2021 Monocytes/100 WBC (Bld) 10.6 % 0-10 [facility] Work Phone: Blood platelet mean volumeon 08-08-2021 Platelet mean volume (Bld) [Entitic vol] 8.0 fL 6.2-12.0 [facility] Work Phone: Determination of erythrocyte mean corpuscular volume (MCV)on 08-08-2021 MCV (RBC) [Entitic vol] 90.5 fL 80-94 [facility] Work Phone: Hematocrit Auto (Bld) [Volum e fraction]on 08-08-2021 Hematocrit (Bld) [Volume fraction] 39.1 % 40-54 [facility] Work Phone: Laboratory - Hematology and Cell countson 08-08-2021 Erythrocyte distribution width (RBC) [Entitic vol] 43.5 fL 35.1-43.9 [facility] Work Phone: Erythrocyte distribution width (RBC) [Ratio] 13.2 % 11.6-14.6 [facility] Work Phone: Immature granulocytes/100 WBC (Bld) 1.600 % 0.0-0.9 [facility] Work Phone: Comment on above: IG% - Immature Granu locytes (promyelocytes, myelocytes and metamyelocytes) > 1% indicates that a LEFT SHIFT is Present. MCH (RBC) [Entitic mass] 30.6 pg 27.0-32.0 [facility] Work Phone: Nucleated RBC/100 WBC (Bld) [Ratio] 0 % 0-5 [facility] Work Phone: MCHC Auto (RBC) [Mass/Vol]on 08-08-2021 MCHC (RBC) [Mass/Vol] 33.8 g/dL 32-36 [facility] Work Phone: Platelets bldon 08-08-2021 Platelets (Bld) [#/Vol] 584 10*3/uL 150-450 [facility] Work Phone: Clinical Lists Update: Prelo ad Extendedon 08-07-2021 Tobacco smoking status Tobacco smoking status Invalid Interpretation Code [facility] Work Phone: Clinical Summary: CerEvin n 08-07-2021 MC25 OP Hand Invalid Interpretation Code [facility] Work Phone: Clinical Summary: Scanned Hi story Summaryon 08-07-2021 adl form etoh alcohol performance wine Invalid Interpretation Code [facility] Work Phone: Beta HCG ( test) Ql (U) Never Invalid Interpretation Code [facility] Work Phone: brother(s) of patient alive or I do not have any brothers. My brother(s)' health history is unknown. Invalid Interpretation Code [facility] Work Phone: cause of , father cardiac arrest Invalid Interpretation Code [facility] Work Phone: cause of , mother child Invalid Interpretation Code [facility] Work Phone: consumes three or more drinks of alcohol (beer, wine, liquor) daily or almost daily 1 drink per day Invalid Interpretation Code [facility] Work Phone: Data entered by patient exercise frequency 5 days per week Invalid Interpretation Code [facility] Work Phone: Data entered by patient exercise type walking, cycling, other Invalid Interpretation Code [facility] Work Phone: data entered by patient, alcohol (ethanol or ETOH) use Yes Invalid Interpretation Code [facility] Work Phone: Data entered by patient, allergy list I don't have any Drug Allergies Invalid Interpretation Code [facility] Work Phone: data entered by patient, drug (of abuse) use No Invalid Interpretation Code [facility] Work Phone: data entered by patient, Employer Name retired Invalid Interpretation Code [facility] Work Phone: data entered by patient, exercise history Yes Invalid Interpretation Code [facility] Work Phone: data entered by patient, father's medical history Gout Heart disease High blood pressure Kidney disease Invalid Interpretation Code [facility] Work Phone: Data entered by patient, history of past surgeries Abdominal Surgery Appendectomy Hernia repair Thoracic spine surgery other Invalid Interpretation Code [facility] Work Phone: data entered by patient, maternal family history unknown My mother's health history is unknown Invalid Interpretation Code [facility] Work Phone: Data entered by patient, medication list jbxtjaqhvkf-[id number]-kelly ly atorvastatin xorpnza-92-8-daily hydrochlorothiazide and lhzgrbsqjpk-78-2-traci y wqtqblkpmi-67-7-daily flomax-.4-1-daily centrum hhzpef-9-7-daily ohlyey-060-0-ss needed Invalid Interpretation Code [facility] Work Phone: data entered by patient, past medical history GERD Gout High blood pressure High cholesterol Irritable bowel syndrome Sleep apnea Invalid Interpretation Code [facility] Work Phone: data entered by patient, social history, current smoker former smoker Invalid Interpretation Code [facility] Work Phone: data entered by patient, social history, marital status Invalid Interpretation Code [facility] Work Phone: father of patient is alive or Invalid Interpretation Code [facility] Work Phone: Housing Type: apartment, house, jail, trailer, none house Invalid Interpretation Code [facility] Work Phone: housing unit size (asthma environmental history, housing) (from single family to don't know) 2 floors Invalid Interpretation Code [facility] Work Phone: medical history of patient's sister Cancer COPD Invalid Interpretation Code [facility] Work Phone: mother of patient is alive or Invalid Interpretation Code [facility] Work Phone: Number of dependent children No Invalid Interpretation Code [facility] Work Phone: Absolute lymphocyte counton 07-30-2021 Lymphocytes Auto (Unsp spec) [#/Vol] 1.08 10*3/uL 0.83-4.51 [facility] Work Phone: Basophil percentageon 2021 Basophils/100 WBC (Bld) 0.3 % 0-1 [facility] Work Phone: Chloride [Moles/Vol] 107 mmol/L 98-107 [facility] Work Phone: Eosinophils/100 WBC (Bld) 0.1 % 0-5 [facility] Work Phone: Glucose [Mass/Vol] 124 mg/dL 74-106 [facility] Work Phone: Comment on above: Fasting Glucose resu lt from 100 to 125 mg/dL suggests IMPAIRED HOMEOSTASIS per A.D.A. criteria. Neutrophils (Bld) [#/Vol] 6.0 10*3/uL 2.0-7.7 [facility] Work Phone: Neutrophils/100 WBC (Bld) 78.1 % 47-70 [facility] Work Phone: Potassium [Moles/Vol] 3.7 mmol/L 3.5-5.1 [facility] Work Phone: Sodium [Moles/Vol] 139 mmol/L 136-145 [facility] Work Phone: WBC (Bld) [#/Vol] 7.7 10*3/uL 4.4-11.0 [facility] Work Phone: Blood erythrocytes count (nu mber/volume)on 07-30-2021 RBC (Bld) [#/Vol] 4.03 10*6/uL 4.6-6.2 [facility] Work Phone: Blood hemoglobin measurement (mass/volume)on 07-30-2021 Hemoglobin (Bld) [Mass/Vol] 12.4 g/dL 13.0-16.5 [facility] Work Phone: Blood lymphocytes/100 leukoc yteson 07-30-2021 Lymphocytes/100 WBC (Bld) 14.1 % 19-41 [facility] Work Phone: Blood monocytes/100 leukocyt eson 07-30-2021 Monocytes/100 WBC (Bld) 6.9 % 0-10 [facility] Work Phone: Blood platelet mean volumeon 07-30-2021 Platelet mean volume (Bld) [Entitic vol] 8.8 fL 6.2-12.0 [facility] Work Phone: Determination of erythrocyte mean corpuscular volume (MCV)on 07-30-2021 MCV (RBC) [Entitic vol] 85.4 fL 80-94 [facility] Work Phone: Hematocrit Auto (Bld) [Volum e fraction]on 07-30-2021 Hematocrit (Bld) [Volume fraction] 34.4 % 40-54 [facility] Work Phone: Laboratory - Chemistry and C hemistry - challengeon 07-30-2021 CO2 [Moles/Vol] 27.0 mmol/L 21.0-32.0 [facility] Work Phone: Urea nitrogen/Creatinine [Mass ratio] 12.2 mg/mg 10-20 [facility] Work Phone: Laboratory - Hematology and Cell countson 07-30-2021 Erythrocyte distribution width (RBC) [Entitic vol] 44.3 fL 35.1-43.9 [facility] Work Phone: Erythrocyte distribution width (RBC) [Ratio] 14.2 % 11.6-14.6 [facility] Work Phone: Immature granulocytes/100 WBC (Bld) 0.500 % 0.0-0.9 [facility] Work Phone: Comment on above: IG% - Immature Granu locytes (promyelocytes, myelocytes and metamyelocytes) > 1% indicates that a LEFT SHIFT is Present. MCH (RBC) [Entitic mass] 30.8 pg 27.0-32.0 [facility] Work Phone: Nucleated RBC/100 WBC (Bld) [Ratio] 0 % 0-5 [facility] Work Phone: MCHC Auto (RBC) [Mass/Vol]on 07-30-2021 MCHC (RBC) [Mass/Vol] 36.0 g/dL 32-36 [facility] Work Phone: No Panel Informationon 07-30 Estimated Creatinine Clearance Calc 64.67 ml/min [facility] Work Phone: Estimated GFR (MDRD) Amer 81 mL/min >60 [facility] Work Phone: Comment on above: GFR Calc Estimated GFR (MDRD) Non-Af Amer 67 mL/min >60 [facility] Work Phone: Comment on above: Non- GFR Calc Platelets bldon 07-30-2021 Platelets (Bld) [#/Vol] 174 10*3/uL 150-450 [facility] Work Phone: Serum or plasma calcium flower urement (mass/volume)on 07-30-2021 Calcium [Mass/Vol] 8.1 mg/dL 8.5-10.1 [facility] Work Phone: Serum or plasma creatinine m easurement (mass/volume)on 07-30-2021 Creatinine [Mass/Vol] 1.15 mg/dL 0.70-1.30 [facility] Work Phone: Comment on above: The validity of the calculated GFR & GFRAA in patients over 70 years has not been determined. Clinical correlation is essential. Serum or plasma urea nitroge n measurement (mass/volume)on 07-30-2021 Urea nitrogen [Mass/Vol] 14 mg/dL 7-18 [facility] Work Phone: Thin prep Papanicolaou smear with manual screeningon 07-30-2021 Thin prep Papanicolaou smear with manual screening 5 5-15 [facility] Work Phone: Basic Metabolic Panelon 09-15 Calcium [Mass/Vol] 9.5 mg/dL Normal 8.4-10.4 [facility] Comment on above: Performed By: #### B MP3M ####[facility] [employer] [id number] [place] [address] Anion gap [Moles/Vol] 10 mmol/L Normal 3-13 [facility] Comment on above: Performed By: #### B MP3M ####[facility] [employer] [id number] [employer] [place] [address] CO2 [Moles/Vol] 27 mmol/L Normal 22-30 [facility] Comment on above: Performed By: #### B MP3M ####[facility] [employer] [id number] [place] [address] Creatinine [Mass/Vol] 0.87 mg/dL Normal 0.52-1.25 [facility] Comment on above: Performed By: #### B MP3M ####[facility] [employer] [id number] [place] [address] GFR/1.73 sq M.predicted among blacks MDRD (S/P/Bld) [Vol rate/Area] mL/min/{1.73_m2} Normal >60 [facility] Comment on above: Performed By: #### B MP3M ####[facility] [employer] [id number] [place] [address] GFR/1.73 sq M.predicted among non-blacks MDRD (S/P/Bld) [Vol rate/Area] 87.0 mL/min/{1.73_m2} Normal >60 [facility] Comment on above: Result Comment: KDIG [...] creatinine secretion. Performed By: #### B MP3M ####[facility] [employer] [id number] [place] [address] Glucose [Mass/Vol] 90 mg/dL Normal 70-100 [facility] Comment on above: Performed By: #### B MP3M ####[facility] [employer] [id number] [place] [address] Urea nitrogen [Mass/Vol] 22 mg/dL High 7-20 [facility] Comment on above: Performed By: #### B MP3M ####[facility] [employer] [id number] [place] [address] Chloride [Moles/Vol] 103 mmol/L Normal 98-107 [facility] Comment on above: Performed By: #### B MP3M ####[facility] [employer] [id number] [place] [address] Potassium [Moles/Vol] 4.4 mmol/L Normal 3.5-5.1 [facility] Comment on above: Result Comment: Slig htly hemolysed, interpret with caution. Performed By: #### B MP3M ####[facility] [place] [address] Sodium [Moles/Vol] 140 mmol/L Normal 135-145 [facility] Comment on above: Performed By: #### B MP3M ####[facility] [employer] [id number] [place] [address] Basic Metabolic Panel w/ Ref kenya to MGOrdered By: Brad Moralez on 09-26-2020 Anion gap [Moles/Vol] 10 mmol/L 3 - 13 mmol/L [facility] Work Phone: Calcium [Mass/Vol] 9.5 mg/dL 8.4 - 10. 4 mg/dL [facility] Work Phone: Chloride [Moles/Vol] 103 mmol/L 98 - 10 7 mmol/L [facility] Work Phone: CO2 [Moles/Vol] 27 mmol/L 22 - 30 mmol/L [facility] Work Phone: Creatinine [Mass/Vol] 0.87 mg/dL 0.52 - 1.25 mg/dL [facility] Work Phone: EGFR IF NonAfrican Venezuelan 87.0 mL/min >60 [facility] Work Phone: Comment on above: KDIGO guidelines [...] MDRD (S/P/Bld) [Vol rate/Area] mL/min/{1.73_m2} >60 mL/min [facility] Work Phone: Glucose [Mass/Vol] 90 mg/dL 70 - 100 mg/dL [facility] Work Phone: Interpretation and review of laboratory results Abnormal [facility] Work Phone: Potassium [Moles/Vol] 4.4 mmol/L 3.5 - 5.1 mmol/L [facility] Work Phone: Comment on above: Slightly hemolysed, interpret with caution. Sodium [Moles/Vol] 140 mmol/L 135 - 145 mmol/L [facility] Work Phone: Urea nitrogen (BldV) [Mass/Vol] 22 mg/dL High 7 - 20 mg/dL [facility] Work Phone: Test Performed by [employer], [address] [place] [address] [facility] Work Phone: CBCOrdered By: Brad Moralez on 09-26-2020 Hematocrit (Bld) [Volume fraction] 41.5 % 40.0 - 52.0 % [facility] Work Phone: Hemoglobin.gastrointesti nal spec 1 Ql (Stl) 13.8 g/dL 13.0 - 18.0 g/dL [facility] Work Phone: Interpretation and review of laboratory results Abnormal [facility] Work Phone: MCH (RBC) [Entitic mass] 27.9 pg 26. 0 - 34.0 pg [facility] Work Phone: MCHC (RBC) [Mass/Vol] 33.4 % 32.0 - 36.0 % [facility] Work Phone: MCV (RBC) [Entitic vol] 83.7 fL 80.0 - 98.0 fL [facility] Work Phone: Platelet distribution width (Bld) [Ratio] 16.4 % High 11.5 - 14.5 % [facility] Work Phone: Platelet mean volume (Bld) [Entitic vol] 7.0 fL Low 7.4 - 10.4 fL [facility] Work Phone: Platelets (Bld) [#/Vol] 359 10*3/uL 140 - 440 10*3/uL [facility] Work Phone: RBC (Bld) [#/Vol] 4.96 10*6/uL 4.40 - 5.9 0 10*6/uL [facility] Work Phone: WBC (Bld) [#/Vol] 9.9 10*3/uL 3.6 - 10.7 10*3/uL [facility] Work Phone: Test Performed by [facility] [address] [facility] Work Phone: CR Chest Portableon 09-27-19 21 CR Chest Portable Patient Name: SUZETTE PALOMINO Diagnostic Radiology ACCESSION EXAM DATE/TIME PROCEDURE ORDERING PROVIDER [id number] 09/26/2020 07:14 EDT CR Chest Portable MD MORALEZ KEVIN CPT code 86072 Reason For Exam (CR Chest Portable) s/p [...] Transcribed Date and Time: 09/26/2020 9:02 Normal [facility] Hemogramon 09-26-2020 Erythrocyte distribution width (RBC) [Ratio] 16.4 % High 11.5-14.5 [facility] Comment on above: Performed By: #### H EMOG #### [place] [address] [address] [place], [place] Hematocrit (Bld) [Volume fraction] 41.5 % Normal 40.0-52.0 [facility] Comment on above: Performed By: #### H EMOG #### [address] [address] [address] [place], [place] Hemoglobin (Bld) [Mass/Vol] 13.8 g/dL Normal 13.0-18.0 [facility] Comment on above: Performed By: #### H EMOG #### [address] [address] [place], [place] MCH (RBC) [Entitic mass] 27.9 pg Normal 26.0-34.0 [facility] Comment on above: Performed By: #### H EMOG #### [address] [address] [address] [place], [place] MCHC 33.4 % Normal 32.0-36.0 [facility] Comment on above: Performed By: #### H EMOG #### [address] [address] [place], [place] MCV (RBC) [Entitic vol] 83.7 fL Normal 80.0-98.0 [facility] Comment on above: Performed By: #### H EMOG #### [address] [address] [address] [place], [place] Platelet mean volume (Bld) [Entitic vol] 7.0 fL Low 7.4-10.4 [facility] Comment on above: Performed By: #### H EMOG #### [facility] [address] [place], [place] Platelets (Bld) [#/Vol] 359 10*3/uL Normal 140-440 [facility] Comment on above: Performed By: #### H EMOG #### [facility] [address] [place], [place] RBC (Bld) [#/Vol] 4.96 10*6/uL Normal 4.40-5.90 [facility] Comment on above: Performed By: #### H EMOG #### [facility] [address] [place], [place] WBC (Bld) [#/Vol] 9.9 10*3/uL Normal 3.6-10.7 [facility] Comment on above: Performed By: #### H EMOG #### [facility] [address] [place], [place] XR CHEST PORTABLEOrdered By: Brad Moralez on 09-26-2020 Patient Name: SUZETTE PALOMINO Diagnostic Radiology ACCESSION EXAM DATE/TIME PROCEDURE ORDERING PROVIDER [id number] 09/26/2020 07:14 EDT CR Chest Portable MD MORALEZ KEVIN CPT code 89399 Reason For Exam (CR Chest Portable) s/p [...] Phone: Stu, [facility] Incoming Rad[facility] Results From [facility] - 09/26/2020 9:07 AM EDT Patient Name: SUZETTE PALOMINO Diagnostic Radiology ACCESSION EXAM DATE/TIME PROCEDURE ORDERING PROVIDER [id number] 09/26/2020 07:14 EDT CR Chest Portable MD MORALEZ KEVIN CPT code 52970 Reason For Exam (CR Chest Portable) s/p [...] and Time: 09/26/2020 9:05 am Signed by: MERUNKA, MD, BRODY Transcribed Date and Time: 09/26/2020 9:02 [facility] Work Phone: Basic Metabolic PanelOrdered By: Brad Moralez on 09-25-2020 Anion gap [Moles/Vol] 9 mmol/L Normal 3-13 [employer] [place] Work Phone: Comment on above: Performed By: #### P HOS3, MG3, BMP3M, HEMOG #### [facility] [place] [address] Calcium [Mass/Vol] 9.2 mg/dL Normal 8.4-10.4 [employer] Work Phone: Comment on above: Performed By: #### P HOS3, MG3, BMP3M, HEMOG #### [employer] [facility] [place] [address] CO2 [Moles/Vol] 25 mmol/L Normal 22-30 [facility] Work Phone: Comment on above: Performed By: #### P HOS3, MG3, BMP3M, HEMOG #### [employer] [facility] [place] [address] Glucose [Mass/Vol] 159 mg/dL High 70-100 [facility] Work Phone: Comment on above: Performed By: #### P HOS3, MG3, BMP3M, HEMOG #### [employer] [facility] [place] [address] Creatinine [Mass/Vol] 0.79 mg/dL Normal 0.52-1.25 [facility] Work Phone: Comment on above: Performed By: #### P HOS3, MG3, BMP3M, HEMOG #### [employer] [facility] [place] [address] GFR/1.73 sq M.predicted among blacks MDRD (S/P/Bld) [Vol rate/Area] mL/min/{1.73_m2} Normal >60 [facility] Work Phone: Comment on above: Performed By: #### P HOS3, MG3, BMP3M, HEMOG #### [facility] [address] [place], [place] Potassium [Moles/Vol] 3.9 mmol/L Normal 3.5-5.1 [facility] Work Phone: Comment on above: Performed By: #### P HOS3, MG3, BMP3M, HEMOG #### [facility] [address] [place], [place] Sodium [Moles/Vol] 135 mmol/L Normal 135-145 [facility] Work Phone: Comment on above: Performed By: #### P HOS3, MG3, BMP3M, HEMOG #### [address] [address] [address] [place], [place] Chloride [Moles/Vol] 101 mmol/L Normal 98-107 [facility] Work Phone: Comment on above: Performed By: #### P HOS3, MG3, BMP3M, HEMOG #### [address] [address] [address] [place], [place] Basic Metabolic Panelon 05- Urea nitrogen [Mass/Vol] 19 mg/dL Normal 7-20 [facility] Comment on above: Performed By: #### P HOS3, MG3, BMP3M, HEMOG #### [address] [address] [address] [place], [place] eGFR OTHER > 90.0 Normal >60 [facility] Comment on above: Result Comment: KDIG [...] #### P HOS3, MG3, BMP3M, HEMOG #### [employer] [address] [address] Basic Metabolic Panel w/ Ref kenya to MGOrdered By: Brad Moralez on 09-25-2020 EGFR IF NonAfrican Venezuelan >90.0 >60 mL/min [facility] Work Phone: Comment on above: KDIGO guidelines [...] [Mass/Vol] 19 mg/dL 7 - 20 mg/dL [facility] Work Phone: CBCOrdered By: Brad Moralez on 09-25-2020 Hematocrit (Bld) [Volume fraction] 38.3 % Low 40.0 - 52.0 % [facility] Work Phone: Hemoglobin.gastrointesti nal spec 1 Ql (Stl) 13.2 g/dL 13.0 - 18.0 g/dL [facility] Work Phone: MCH (RBC) [Entitic mass] 27.7 pg 26. 0 - 34.0 pg [facility] Work Phone: MCHC (RBC) [Mass/Vol] 34.5 % 32.0 - 36.0 % [facility] Work Phone: MCV (RBC) [Entitic vol] 80.3 fL 80.0 - 98.0 fL [facility] Work Phone: Platelet distribution width (Bld) [Ratio] 16.3 % High 11.5 - 14.5 % [facility] Work Phone: Platelet mean volume (Bld) [Entitic vol] 6.4 fL Low 7.4 - 10.4 fL [facility] Work Phone: Platelets (Bld) [#/Vol] 303 10*3/uL 140 - 440 10*3/uL [facility] Work Phone: RBC (Bld) [#/Vol] 4.77 10*6/uL 4.40 - 5.9 0 10*6/uL [facility] Work Phone: WBC (Bld) [#/Vol] 8.5 10*3/uL 3.6 - 10.7 10*3/uL [facility] Work Phone: CR Chest Portableon 09-26-19 21 CR Chest Portable Patient Name: SUZETTE PALOMINO Diagnostic Radiology ACCESSION EXAM DATE/TIME PROCEDURE ORDERING PROVIDER [id number] 09/25/2020 05:59 EDT CR Chest Portable MD MORALEZ KEVIN CPT code 71110 Reason For Exam (CR Chest Portable) s/p [...] Transcribed Date and Time: 09/25/2020 7:58 Normal [facility] Hemogramon 09-25-2020 Erythrocyte distribution width (RBC) [Ratio] 16.3 % High 11.5-14.5 [facility] Comment on above: Performed By: #### P HOS3, MG3, BMP3M, HEMOG #### [address] [address] [place], [place] Hematocrit (Bld) [Volume fraction] 38.3 % Low 40.0-52.0 [facility] Comment on above: Performed By: #### P HOS3, MG3, BMP3M, HEMOG #### [address] Hemoglobin (Bld) [Mass/Vol] 13.2 g/dL Normal 13.0-18.0 [facility] Comment on above: Performed By: #### P HOS3, MG3, BMP3M, HEMOG #### [address] MCH (RBC) [Entitic mass] 27.7 pg Normal 26.0-34.0 [facility] Comment on above: Performed By: #### P HOS3, MG3, BMP3M, HEMOG #### [address] MCHC 34.5 % Normal 32.0-36.0 [facility] Comment on above: Performed By: #### P HOS3, MG3, BMP3M, HEMOG #### [address] MCV (RBC) [Entitic vol] 80.3 fL Normal 80.0-98.0 [facility] Comment on above: Performed By: #### P HOS3, MG3, BMP3M, HEMOG #### [address] [address] [place], [place] Platelet mean volume (Bld) [Entitic vol] 6.4 fL Low 7.4-10.4 [facility] Comment on above: Performed By: #### P HOS3, MG3, BMP3M, HEMOG #### [address] [address] [address] [place], [place] Platelets (Bld) [#/Vol] 303 10*3/uL Normal 140-440 [facility] Comment on above: Performed By: #### P HOS3, MG3, BMP3M, HEMOG #### [address] [address] [address] [place], [place] RBC (Bld) [#/Vol] 4.77 10*6/uL Normal 4.40-5.90 [facility] Comment on above: Performed By: #### P HOS3, MG3, BMP3M, HEMOG #### [address] [address] [address] [place], [place] WBC (Bld) [#/Vol] 8.5 10*3/uL Normal 3.6-10.7 [facility] Comment on above: Performed By: #### P HOS3, MG3, BMP3M, HEMOG #### [address] [address] [address] [place], [place] Leukodepleted Red Cellson Leukodepleted Red Cells Leukodepleted Re d Cells: [id number] released 09/25/20 07:30 [facility] Unit Blood Type: O Unit Blood Rh: POS Blood Product Code: LP1 Unit Number: [id number] Unit Status: released Barcoded Unit Number: =[id number] Barcoded Product Code: = Barcoded ABO/Rh: =%5100 Unit Expiration: [id number] Leukodepleted Red Cells: [id number] released 09/25/20 07:30 [facility] Unit Blood Type: O Unit Blood Rh: POS Blood Product Code: LP1 Unit Number: [id number] Unit Status: released Barcoded Unit Number: =[id number] Barcoded Product Code: = Barcoded ABO/Rh: =%5100 Unit Expiration: [id number] Unit Volume Transfused: 0 Unit Transfusion Start Date/Time: Unit Transfusion End Date/Time: Normal [facility] Comment on above: Performed By: #### L RC ####[place] [address]#### TSGL ####[facility] MagnesiumOrdered By: Brad Ashraf on 09-25-2020 Magnesium [Mass/Vol] 1.8 mg/dL Normal 1.6-2.3 [facility] Work Phone: Comment on above: Performed By: #### P HOS3, MG3, BMP3M, HEMOG #### [address] [address] No Panel InformationOrdered By: Brad Moralez on 09-25-2020 Interpretation and review of laboratory results Abnormal [facility] Work Phone: Test Performed by [facility] [employer] [address] Work Phone: PhosphorusOrdered By: Brad Moralez on 09-25-2020 Phosphate [Mass/Vol] 2.9 mg/dL Normal 2.5-4.5 [facility] Work Phone: Comment on above: Performed By: #### P HOS3, MG3, BMP3M, HEMOG #### [facility] [employer] [address] [address] XR CHEST PORTABLEOrdered By: Brad Moralez on 09-25-2020 Patient Name: SUZETTE PALOMINO Diagnostic Radiology ACCESSION EXAM DATE/TIME PROCEDURE ORDERING PROVIDER [id number] 09/25/2020 05:59 EDT CR Chest Portable MD MORALEZ KEVIN CPT code 05054 Reason For Exam (CR Chest Portable) s/p [...] Phone: [facility], [facility] Results From [facility] - 09/25/2020 8:00 AM EDT Patient Name: [id number] Radiology ACCESSION EXAM DATE/TIME PROCEDURE ORDERING PROVIDER [id number] 09/25/2020 05:59 EDT CR Chest Portable MD MORALEZ KEVIN CPT code 05647 Reason For Exam (CR Chest Portable) s/p [...] ANTHONY Transcribed Date and Time: 09/25/2020 7:58 [facility] Work Phone: CBCOrdered By: Margareth Lou on 09-24-2020 Hematocrit (Bld) [Volume fraction] 44.1 % 40.0 - 52.0 % [facility] Work Phone: Hemoglobin.gastrointesti nal spec 1 Ql (Stl) 14.9 g/dL 13.0 - 18.0 g/dL [facility] Work Phone: Interpretation and review of laboratory results Abnormal [facility] Work Phone: MCH (RBC) [Entitic mass] 27.8 pg 26. 0 - 34.0 pg [facility] Work Phone: MCHC (RBC) [Mass/Vol] 33.8 % 32.0 - 36.0 % [facility] Work Phone: MCV (RBC) [Entitic vol] 82.1 fL 80.0 - 98.0 fL [facility] Work Phone: Platelet distribution width (Bld) [Ratio] 16.3 % High 11.5 - 14.5 % [employer] Work Phone: Platelet mean volume (Bld) [Entitic vol] 6.5 fL Low 7.4 - 10.4 fL [employer] Work Phone: Platelets (Bld) [#/Vol] 316 10*3/uL 140 - 440 10*3/uL [employer] Work Phone: RBC (Bld) [#/Vol] 5.37 10*6/uL 4.40 - 5.9 0 10*6/uL [employer] Work Phone: WBC (Bld) [#/Vol] 6.5 10*3/uL 3.6 - 10.7 10*3/uL [employer] Work Phone: Test Performed by [facility], [address] [place] [address] [facility] Work Phone: CR Chest Portableon 09-25-19 21 CR Chest Portable Patient Name: [id number] Radiology ACCESSION EXAM DATE/TIME PROCEDURE ORDERING PROVIDER [id number] 09/24/2020 17:42 EDT CR Chest Portable MD MORALEZ KEVIN CPT code 74583 Reason For Exam (CR Chest Portable) s/p [...] Transcribed Date and Time: 09/24/2020 5:20 Normal [facility] Hemoglobin A1Con 09-24-2020 Glucose [Mass/Vol] 117 mg/dL Normal [facility] Comment on above: Performed By: #### H A1C2, HEMOG ####[facility] [place] [address] HbA1c (Bld) [Mass fraction] 5.7 % Abnormal [facility] Comment on above: Result Comment: Norm al less than 5.7% Prediabetes 5.7% to 6.4% Diabetes 6.5% or higher --HgbA1C levels may not be accurate in patients who have renal disease, received recent blood transfusions, are anemic, or who have dyshemoglobinemia. Performed By: #### H A1C2, HEMOG ####[facility] [employer] [id number] [place], [place] Hemoglobin A3OCfoivfs By: sanchez Lou on 09-24-2020 HbA1c (Bld) [Mass fraction] 5.7 % Abnormal [facility] Work Phone: Comment on above: Normal less than 5.7 % Prediabetes 5.7% to 6.4% Diabetes 6.5% or higher --HgbA1C levels may not be accurate in patients who have renal disease, received recent blood transfusions, are anemic, or who have dyshemoglobinemia. Interpretation and review of laboratory results Abnormal [facility] Work Phone: Magnesium [Mass/Vol] 117 mg/dL [facility] Work Phone: [facility], [facility] [place] [address] [facility] Work Phone: Hemogramon 09-24-2020 Erythrocyte distribution width (RBC) [Ratio] 16.3 % High 11.5-14.5 [facility] Comment on above: Performed By: #### H A1C2, HEMOG ####[facility] [employer] [id number] [place], [place] Hematocrit (Bld) [Volume fraction] 44.1 % Normal 40.0-52.0 [facility] Comment on above: Performed By: #### H A1C2, HEMOG ####[facility] [employer] [id number] [place], [place] Hemoglobin (Bld) [Mass/Vol] 14.9 g/dL Normal 13.0-18.0 [facility] Comment on above: Performed By: #### H A1C2, HEMOG ####[facility] [employer] [id number] [place], [place] MCH (RBC) [Entitic mass] 27.8 pg Normal 26.0-34.0 [facility] Comment on above: Performed By: #### H A1C2, HEMOG ####[facility] [employer] [id number] [place], [place] MCHC 33.8 % Normal 32.0-36.0 [facility] Comment on above: Performed By: #### H A1C2, HEMOG ####[place] [address] [place], [place] MCV (RBC) [Entitic vol] 82.1 fL Normal 80.0-98.0 S [facility] Comment on above: Performed By: #### H A1C2, HEMOG ####[place] [address] [place], [place] Platelet mean volume (Bld) [Entitic vol] 6.5 fL Low 7.4-10.4 [facility] Comment on above: Performed By: #### H A1C2, HEMOG ####[place] [place], [place] Platelets (Bld) [#/Vol] 316 10*3/uL Normal 140-440 [facility] Comment on above: Performed By: #### H A1C2, HEMOG ####[place] [address] [place], [place] RBC (Bld) [#/Vol] 5.37 10*6/uL Normal 4.40-5.90 [facility] Comment on above: Performed By: #### H A1C2, HEMOG ####[place] [address] [place], [place] WBC (Bld) [#/Vol] 6.5 10*3/uL Normal 3.6-10.7 [facility] Comment on above: Performed By: #### H A1C2, HEMOG ####[place] [address] [place], [place] Op Noteon 09-24-2020 Op Note PATIENT: [...] not feel any lung masses either. A 24-Slovak Wilder drain was placed in the chest [...] Heart and Lung unit. [employer] Job ID: [id number] Brad Gama MD DOD:09/24/2020 04:34 P KLM/dsk DOT:09/24/2020 05:30 P Job Number: [id number] Document Number: [id number] cc: Brad Gama MD [address] [place] [address] Normal [facility] XR CHEST PORTABLEOrdered By: Brad Moralez on 09-24-2020 Patient Name: SUZETTE PALOMINO Diagnostic Radiology ACCESSION EXAM DATE/TIME PROCEDURE ORDERING PROVIDER [id number] 09/24/2020 17:42 EDT CR Chest Portable MD MORALEZ KEVIN CPT code 40168 Reason For Exam (CR Chest Portable) s/p [...] R Transcribed Date and Time: 09/24/2020 5:20 [facility] Work Phone: Stu, [facility] Results From [facility] - 09/24/2020 5:42 PM EDT Patient Name: [facility]TE PAL[facility]INO [id number] Diagnostic Radiology ACCESSION EXAM DATE/TIME PROCEDURE ORDERING PROVIDER [id number] 09/24/2020 17:42 EDT CR Chest Portable MD MORALEZ KEVIN CPT code 02056 Reason For Exam (CR Chest Portable) s/p [...] Transcribed Date and Time: 09/24/2020 5:20 [facility] Work Phone: CR Chest PA/LATon 09-20-2020 CR Chest PA/LAT Patient Name: SUZETTE PALOMINO Diagnostic Radiology ACCESSION EXAM DATE/TIME PROCEDURE ORDERING PROVIDER [id number] 09/20/2020 15:38 EDT CR Chest PA and LAT [id number] SHASHANK WINKLER CPT code 65846 Reason For Exam (CR Chest PA and LAT) preoperative evaluation Report CHEST X-RAY PA and lateral CLINICAL INDICATION: Preoperative examination PA and lateral radiographs of the chest were obtained. COMPARISON: None FINDINGS: The cardiac silhouette is within normal limits. Volume loss of the right lung with associated atelectasis/enterprise application architect ural distortion. A small right pleural effusion may be present. No left-sided pleural effusion or focal consolidation is seen within the lungs. No pneumothorax is identified. Degenerative changes of the thoracic spine are noted. IMPRESSION: Volume loss of the right lung with associated atelectasis/enterprise application architect ural distortion. A small right pleural effusion may be present. Report Dictated on Final Dictated: 09/20/2020 3:58 pm Dictating Physician: MD MCDONALD JASON Signed Date and Time: 09/20/2020 3:59 pm Signed by: MD MCDONALD JASON Transcribed Date and Time: 09/20/2020 3:58 Normal [facility] Comp Metabolic Panelon 09-20 ALP [Catalytic activity/Vol] 85 U/L Normal 38-126 [facility] Comment on above: Performed By: #### C MP3, MG3, HA1C2 #### [place] [address] [address] [place], [place] ALT [Catalytic activity/Vol] 15 U/L Normal 0-49 [facility] Comment on above: Result Comment: The ALT test is performed by an updated assay method. Please note that the reference intervals have been changed and are now sex specific. Performed By: #### C MP3, MG3, HA1C2 #### [place] [address] [address] [place], [place] AST [Catalytic activity/Vol] 34 U/L Normal 15-46 [facility] Comment on above: Performed By: #### C MP3, MG3, HA1C2 #### [facility] [address] [place], [place] Calcium [Mass/Vol] 9.4 mg/dL Normal 8.4-10.4 [facility] Comment on above: Performed By: #### C MP3, MG3, HA1C2 #### [facility] [address] [place], [place] Glucose [Mass/Vol] 91 mg/dL Normal 70-100 [facility] Comment on above: Performed By: #### C MP3, MG3, HA1C2 #### [facility] [address] [place], [place] Urea nitrogen [Mass/Vol] 18 mg/dL Normal 7-20 [facility] Comment on above: Performed By: #### C MP3, MG3, HA1C2 #### [place] [address] [address] [place], [place] Anion gap [Moles/Vol] 8 mmol/L Normal 3-13 [facility] Comment on above: Performed By: #### C MP3, MG3, HA1C2 #### [place] [address] [address] [place], [place] Bilirubin [Mass/Vol] 0.9 mg/dL Normal 0.2-1.3 [facility] Comment on above: Performed By: #### C MP3, MG3, HA1C2 #### [place] [address] [place], [place] CO2 [Moles/Vol] 28 mmol/L Normal 22-30 [facility] Comment on above: Performed By: #### C MP3, MG3, HA1C2 #### [place] [address] [place], [place] Creatinine [Mass/Vol] 0.99 mg/dL Normal 0.52-1.25 [facility] Comment on above: Performed By: #### C MP3, MG3, HA1C2 #### [place] [address] [place], [place] GFR/1.73 sq M.predicted among blacks MDRD (S/P/Bld) [Vol rate/Area] 88.6 mL/min/{1.73_m2} Normal >60 [facility] Comment on above: Performed By: #### C MP3, MG3, HA1C2 #### [place] [address] [place], [place] GFR/1.73 sq M.predicted among non-blacks MDRD (S/P/Bld) [Vol rate/Area] 76.5 mL/min/{1.73_m2} Normal >60 [facility] Comment on above: Result Comment: [...] By: #### C MP3, MG3, HA1C2 #### [address] Protein [Mass/Vol] 7.7 g/dL Normal 6.3-8.2 [facility] Comment on above: Performed By: #### C MP3, MG3, HA1C2 #### [address] Potassium [Moles/Vol] 3.8 mmol/L Normal 3.5-5.1 [facility] Comment on above: Performed By: #### C MP3, MG3, HA1C2 #### [address] Sodium [Moles/Vol] 139 mmol/L Normal 135-145 [facility] Comment on above: Performed By: #### C MP3, MG3, HA1C2 #### [place] [address] [place], [place] Albumin [Mass/Vol] 4.4 g/dL Normal 3.5-5.0 [facility] Comment on above: Performed By: #### C MP3, MG3, HA1C2 #### [address] Chloride [Moles/Vol] 103 mmol/L Normal 98-107 [facility] Comment on above: Performed By: #### C MP3, MG3, HA1C2 #### [address] Comprehensive Metabolic Pane lOrdered By: Shashank Umanzor on 09-20-2020 Albumin [Mass/Vol] 4.4 g/dL 3.5 - 5.0 g/dL [employer] Work Phone: ALP (Bld) [Catalytic activity/Vol] 85 U/L 38 - 126 U/L [facility] Work Phone: ALT [Catalytic activity/Vol] 15 U/L 0 - 49 U/L [employer] Work Phone: Comment on above: The ALT test is perf ormed by an updated assay method. Please note that the reference intervals have been changed and are now sex specific. Anion gap [Moles/Vol] 8 mmol/L 3 - 13 mmol/L [employer] Work Phone: AST [Catalytic activity/Vol] 34 U/L 15 - 46 U/L [employer] Work Phone: Bilirubin [Mass/Vol] 0.9 mg/dL 0.2 - 1 .3 mg/dL [employer] Work Phone: Calcium [Mass/Vol] 9.4 mg/dL 8.4 - 10. 4 mg/dL [employer] Work Phone: Chloride [Moles/Vol] 103 mmol/L 98 - 10 7 mmol/L [facility] Work Phone: CO2 [Moles/Vol] 28 mmol/L 22 - 30 mmol/L [employer] Work Phone: Creatinine [Mass/Vol] 0.99 mg/dL 0.52 - 1.25 mg/dL [employer] Work Phone: EGFR IF NonAfrican Venezuelan 76.5 mL/min >60 [employer] Work Phone: Comment on above: KDIGO guidelines [...] fraction] 7.7 g/dL 6.3 - 8.2 g/dL [facility] Work Phone: GFR/1.73 sq M.predicted among blacks MDRD (S/P/Bld) [Vol rate/Area] 88.6 mL/min/{1.73_m2} >60 [facility] Work Phone: Glucose [Mass/Vol] 91 mg/dL 70 - 100 mg/dL [facility] Work Phone: Potassium [Moles/Vol] 3.8 mmol/L 3.5 - 5.1 mmol/L [facility] Work Phone: Sodium [Moles/Vol] 139 mmol/L 135 - 145 mmol/L [facility] Work Phone: Urea nitrogen (BldV) [Mass/Vol] 18 mg/dL 7 - 20 mg/dL [facility] Work Phone: Hemoglobin A1Con 09-20-2020 Glucose [Mass/Vol] 117 mg/dL Normal [facility] [employer] [facility] Comment on above: Performed By: #### C MP3, MG3, HA1C2 ####[email or web address] [place] [address] HbA1c (Bld) [Mass fraction] 5.7 % Abnormal [facility] Comment on above: Result Comment: Norm al less than 5.7% Prediabetes 5.7% to 6.4% Diabetes 6.5% or higher --HgbA1C levels may not be accurate in patients who have renal disease, received recent blood transfusions, are anemic, or who have dyshemoglobinemia. Performed By: #### C MP3, MG3, HA1C2 ####[facility] [place] [address] Hemoglobin [id number] By: Martín Umanzor on 09-20-2020 HbA1c (Bld) [Mass fraction] 5.7 % Abnormal [facility] Work Phone: Comment on above: Normal less than 5.7 % Prediabetes 5.7% to 6.4% Diabetes 6.5% or higher --HgbA1C levels may not be accurate in patients who have renal disease, received recent blood transfusions, are anemic, or who have dyshemoglobinemia. Interpretation and review of laboratory results Abnormal [facility] Work Phone: Magnesium [Mass/Vol] 117 mg/dL [facility] Work Phone: Test Performed by [facility], [address] [place] [id number] [place] [address] Work Phone: MRSA by PCROrdered By: Shashank Umanzor on 09-20-2020 Staph Aureus Sc No S. aureus detected. Negative nasal MRSA PCR has a high negative predictive value for MRSA pneumonia. Consider stopping vancomycin if no other clinical indication. Contact Antimicrobial Stewardship for further recommendations. The analytical performance characteristics of this assay have been determined by [employer] in accordance with CLIA regulations. The modifications have not been cleared or approved by the U. S. Food and Drug Administration; however, the FDA has determined that such clearance or approval is not necessary. [facility] Work Phone: Test Performed by [facility], [address] [place] [address] [facility] Work Phone: Magnesiumon 09-20-2020 Magnesium [Mass/Vol] 1.9 mg/dL Normal 1.6-2.3 [facility] [email or web address] Comment on above: Performed By: #### C MP3, MG3, HA1C2 #### [facility] [address] [place] [id number] MagnesiumOrdered By: Shashank cunningham on 09-20-2020 Magnesium [Mass/Vol] 1.9 mg/dL 1.6 - 2 .3 mg/dL [facility] Work Phone: No Panel InformationOrdered By: Shashank Umanzor on 09-20-2020 Test Performed by [facility], [address] [place] [address] [employer] Work Phone: Staph Aureus Complete Nasalo n 09-20-2020 Staph Aureus Complete Nasal Staph Screen --> Status: F No S. aureus detected. Negative nasal MRSA PCR has a high negative predictive value for MRSA pneumonia. Consider stopping vancomycin if no other clinical indication. Contact Antimicrobial Stewardship for further recommendations. The analytical performance characteristics of this assay have been determined by [employer] in accordance with CLIA regulations. The modifications [...] of this assay have been determined by [employer] in accordance with CLIA regulations. The modifications have not been cleared or approved by the U. S. Food and Drug Administration; however, the FDA has determined that such clearance or approval is not necessary. Normal [email or web address] Comment on above: Performed By: #### S APCR ####[facility] [place] [address] TS GELon 09-20-2020 TS GEL ABO Group: O Rh, Gel: POS Antibody Screen Gel: NEG Normal [facility] Comment on above: Performed By: #### L RC ####[address] [address]#### TSGL ####[facility] TYPE AND SCREENOrdered By: Nicol Umanzor on 09-20-2020 ABO Grouping O [employer] Work Phone: Rh Type Positive [employer] Work Phone: Test Performed by [facility], [address] [place] [address] [employer] Work Phone: XR CHEST (2 VW)Ordered By: Nicol Umanzor on 09-20-2020 Patient Name: SUZETTE PALOMINO Diagnostic Radiology ACCESSION EXAM DATE/TIME PROCEDURE ORDERING PROVIDER [id number] 09/20/2020 15:38 EDT CR Chest PA & LAT [id number] SHASHANK WINKLER CPT code 75529 Reason For Exam (CR Chest PA & LAT) preoperative evaluation Report CHEST X-RAY PA and lateral CLINICAL INDICATION: Preoperative examination PA and lateral radiographs of the chest were obtained. COMPARISON: None FINDINGS: The cardiac silhouette is within normal limits. Volume loss of the right lung with associated atelectasis/enterprise application architect ural distortion. A small right pleural effusion may be present. No left-sided pleural effusion or focal consolidation is seen within the lungs. No pneumothorax is identified. Degenerative changes of the thoracic spine are noted. IMPRESSION: Volume loss of the right lung with associated atelectasis/enterprise application architect ural distortion. A small right pleural effusion may be present. Report Dictated on --- Final --- Dictated: 09/20/2020 3:58 pm Dictating Physician: MD MCDONALD JASON Signed Date and Time: 09/20/2020 3:59 pm Signed by: MD MCDONALD JASON Transcribed Date and Time: 09/20/2020 3:58 [facility] Work Phone: [facility]u, [facility] Incoming [facility] Results From [facility] - 09/20/2020 4:00 PM EDT Patient Name: SUZETTE PALOMINO Diagnostic Radiology ACCESSION EXAM DATE/TIME PROCEDURE ORDERING PROVIDER [id number] 09/20/2020 15:38 EDT CR Chest PA & LAT [id number] -MARTÍN UMANZORIN CPT code 95173 Reason For Exam (CR Chest PA & LAT) preoperative evaluation Report CHEST X-RAY PA and lateral CLINICAL INDICATION: Preoperative examination PA and lateral radiographs of the chest were obtained. COMPARISON: None FINDINGS: The cardiac silhouette is within normal limits. Volume loss of the right lung with associated atelectasis/enterprise application architect ural distortion. A small right pleural effusion may be present. No left-sided pleural effusion or focal consolidation is seen within the lungs. No pneumothorax is identified. Degenerative changes of the thoracic spine are noted. IMPRESSION: Volume loss of the right lung with associated atelectasis/enterprise application architect ural distortion. A small right pleural [...] cm Dr. Georgiana Mcfadden MD Work Phone: [phone])492-222827 [address] 11-29-2024 15:44-0400 Body mass index (BMI) [Ratio] 33 kg/m2 Dr. Georgiana Mcfadden MD Work Phone: [phone])[phone] [place] [address] 11-29-2024 15:44-0400 Body weight 110.[address] Georgiana Mcfadden MD Work Phone: 4(152)522-591724 [place] [address] 11-29-2024 15:44-0400 Diastolic blood pressure 83 mm[Hg] Dr. Georgiana Mcfadden MD Work Phone: 3(166)435-824424 [place] [address] 11-29-2024 15:44-0400 Heart rate 79 /min Dr. Georgiana Mcfadden MD Work Phone: 0(177)694-223024 [place] [address] 11-29-2024 15:44-0400 Respiratory rate 16 /min Dr. Georgiana Mcfadden MD Work Phone: 2(763)451-492924 [place] [address] 11-29-2024 15:44-0400 Systolic blood pressure 134 mm[Hg] Dr. Georgiana Mcfadden MD Work Phone: 1(304)487-176624 [place] [address] 03-27-2023 10:01-0500 Body height 182.[address] Georgiana Mcfadden Work Phone: 6(573)831-908524 [place] [address] 03-27-2023 10:01-0500 Body mass index (BMI) [Ratio] 32.1 kg/m2 Dr. Georgiana Mcfadden Work Phone: [facility] 03-27-2023 10:01-0500 Body temperature 97.8 [degF] Dr. Georgiana Mcfadden Work Phone: [facility] 03-27-2023 10:01-0500 Body weight 107.[address] Georgiana Mcfadden Work Phone: [facility] 03-27-2023 10:01-0500 Diastolic blood pressure 82 mm[Hg] Dr. Georgiana Mcfadden Work Phone: [facility] 03-27-2023 10:01-0500 Heart rate 72 /min Dr. Georgiana Mcfadden Work Phone: [facility] 03-27-2023 10:01-0500 Respiratory rate 18 /min Dr. Georgiana Mcfadden Work Phone: [facility] 03-27-2023 10:01-0500 SaO2% (BldA) [Mass fraction] 96 % Dr. Georgiana Mcfadden Work Phone: [facility] 03-27-2023 10:01-0500 Systolic blood pressure 143 mm[Hg] Dr. Georgiana Mcfadden Work Phone: [facility] 12-11-2022 15:17-0400 Body weight 105.[address] Georgiana Mcfadden Work Phone: [facility] 12-11-2022 15:17-0400 Diastolic blood pressure 75 mm[Hg] Dr. Georgiana Mcfadden Work Phone: [facility] 12-11-2022 15:17-0400 Heart rate 77 /min Dr. Georgiana Mcfadden Work Phone: [facility] 12-11-2022 15:17-0400 Respiratory rate 18 /min Dr. Georgiana Mcfadden Work Phone: [facility] 12-11-2022 15:17-0400 Systolic blood pressure 128 mm[Hg] Dr. Georgiana Mcfadden Work Phone: [facility] 12-11-2022 10:10-0400 Body height 182.[address] Georgiana Mcfadden Work Phone: [facility] 02-10-2022 08:01-0400 Body height 182.[address] Georgiana Mcfadden Work Phone: [facility] Work Phone: 02-10-2022 08:01-0400 Body mass index (BMI) [Ratio] 29.5 kg/m2 Dr. Georgiana Mcfadden Work Phone: [facility] Work Phone: 02-10-2022 08:01-0400 Body weight 98.[address] Georgiana Mcfadden Work Phone: [facility] Work Phone: 02-10-2022 08:01-0400 Diastolic blood pressure 82 mm[Hg] Dr. Georgiana Mcfadden Work Phone: [facility] Work Phone: 02-10-2022 08:01-0400 Heart rate 79 /min Dr. Georgiana Mcfadden Work Phone: [facility] Work Phone: 02-10-2022 08:01-0400 SaO2% (BldA) [Mass fraction] 96 % Dr. Georgiana Mcfadden Work Phone: [facility] Work Phone: 02-10-2022 08:01-0400 Systolic blood pressure 128 mm[Hg] Dr. Georgiana Mcfadden Work Phone: [facility] Work Phone: 09-04-2021 13:46-0400 Body weight 102.[address] Georgiana Mcfadden Work Phone: [facility] Work Phone: 08-08-2021 09:53-0400 Body weight 102.[address] Georgiana Mcfadden Work Phone: [facility] Work Phone: 07-30-2021 09:02-0400 Body temperature 98.3 [degF] Dr. Georgiana Mcfadden Work Phone: [facility] Work Phone: 07-30-2021 09:02-0400 Diastolic blood pressure 87 mm[Hg] Dr. Georgiana Mcfadden Work Phone: [facility] Work Phone: 07-30-2021 09:02-0400 Heart rate 84 /min Dr. Georgiana Mcfadden Work Phone: [facility] Work Phone: 07-30-2021 09:02-0400 Respiratory rate 14 /min Dr. Georgiana Mcfadden Work Phone: [facility] Work Phone: 07-30-2021 09:02-0400 SaO2% (BldA) [Mass fraction] 97 % Dr. Georgiana Mcfadden Work Phone: [facility] Work Phone: 07-30-2021 09:02-0400 Systolic blood pressure 135 mm[Hg] Dr. Georgiana Mcfadden Work Phone: [facility] Work Phone: 07-29-2021 15:27-0400 Body height 182.[address] Georgiana Mcfadden Work Phone: [facility] Work Phone: 07-29-2021 15:27-0400 Body mass index (BMI) [Ratio] 32 kg/m2 Dr. Georgiana Mcfadden Work Phone: [facility] Work Phone: 07-29-2021 15:27-0400 Body weight [address] Georgiana Mcfadden Work Phone: [facility] Work Phone: 06-13-2021 07:04-0500 Body temperature 97 [degF] Dr. Georgiana Mcfadden Work Phone: [facility] Work Phone: 06-13-2021 07:04-0500 Diastolic blood pressure 82 mm[Hg] Dr. Geogriana Mcfadden Work Phone: [facility] Work Phone: 06-13-2021 07:04-0500 Heart rate 71 /min Dr. Georgiana Mcfadden Work Phone: [facility] Work Phone: 06-13-2021 07:04-0500 Respiratory rate 18 /min Dr. Georgiana Mcfadden Work Phone: [facility] Work Phone: 06-13-2021 07:04-0500 SaO2% (BldA) [Mass fraction] 98 % Dr. Georgiana Mcfadden Work Phone: [facility] Work Phone: 06-13-2021 07:04-0500 Systolic blood pressure 131 mm[Hg] Dr. Georgiana Mcfadden Work Phone: [facility] Work Phone: 05-31-2021 08:40-0500 Body temperature 96 [degF] Dr. Georgiana Mcfadden Work Phone: [facility] Work Phone: 05-31-2021 08:40-0500 Diastolic blood pressure 71 mm[Hg] Dr. Georgiana Mcfadden Work Phone: [facility] Work Phone: 05-31-2021 08:40-0500 Heart rate 69 /min Dr. Georgiana Mcfadden Work Phone: [facility] Work Phone: 05-31-2021 08:40-0500 Respiratory rate 16 /min Dr. Georgiana Mcfadden Work Phone: [facility] Work Phone: 05-31-2021 08:40-0500 SaO2% (BldA) [Mass fraction] 94 % Dr. Georgiana Mcfadden Work Phone: [facility] Work Phone: 05-31-2021 08:40-0500 Systolic blood pressure 104 mm[Hg] Dr. Georgiana Mcfadden Work Phone: [facility] Work Phone: 05-31-2021 06:59-0500 Body mass index (BMI) [Ratio] 30.2 kg/m2 Dr. Georgiana Mcfadden Work Phone: [facility] Work Phone: 05-31-2021 06:59-0500 Body weight [address] Georgiana Mcfadden Work Phone: [facility] Work Phone: 05-20-2021 11:26-0500 Body mass index (BMI) [Ratio] 30.8 kg/m2 Dr. Georgiana Mcfadden Work Phone: [facility] Work Phone: 05-20-2021 11:26-0500 Body temperature 97.7 [degF] Dr. Georgiana Mcfadden Work Phone: [facility] Work Phone: 05-20-2021 11:26-0500 Body weight 103.[address] Georgiana Mcfadden Work Phone: [facility] Work Phone: 05-20-2021 11:26-0500 Diastolic blood pressure 81 mm[Hg] Dr. Georgiana Mcfadden Work Phone: [facility] Work Phone: 05-20-2021 11:26-0500 Heart rate 83 /min Dr. Georgiana Mcfadden Work Phone: [facility] Work Phone: 05-20-2021 11:26-0500 Respiratory rate 18 /min Dr. Georgiana Mcfadden Work Phone: [facility] Work Phone: 05-20-2021 11:26-0500 SaO2% (BldA) [Mass fraction] 97 % Dr. Georgiana Mcfadden Work Phone: [facility] Work Phone: 05-20-2021 11:26-0500 Systolic blood pressure 138 mm[Hg] Dr. Georgiana Mcfadden Work Phone: [facility] Work Phone: 09-26-2020 07:50-0400 Respiratory rate 16 [...] Work Phone: [facility] Work Phone: NEGATED: Highlighted [id number] 12:32-0400 Body height 180.34 cm Paulo Cuadra LPN [facility] Work Phone: NEGATED: Highlighted [id number] 12:32-0400 Body height 180 cm Paulo Cuadra LPN [facility] Work Phone: NEGATED: Highlighted [id number] 12:32-0400 Body mass index (BMI) [Ratio] 30.93 kg/m2 Paulo Cuadra LPN [facility] Work Phone: NEGATED: Highlighted [id number] 12:32-0400 Body weight 100.25 kg Paulo Cuadra DEALER SALES REP [facility] Work Phone: NEGATED: Highlighted [id number] 12:32-0400 Body weight 100 kg Paulo Cuadra DEALER SALES REP [facility] Work Phone: Encounters Encounter Date Encounter Type Care Provider Facility Start: 01-12-2025 ambulatory Georgiana Mcfadden Facilit y:[facility] Start: 12-27-2024 Non-patient / Non-visit Edith Mcallister BEEF CATTLE SPECIALIST-C -[facility] Work Phone: Start: 12-27-2024 ambulatory Georgiana Mcfadden Facilit y:[facility] Start: 12-26-[address] Georgiana Littlejohn MD -Occupational Therapy Work Phone: Start: 12-26-2024 Non-patient / Non-visit Edith Mcallister BEEF CATTLE SPECIALIST-C -[facility] Work Phone: Start: 12-26-2024 ambulatory Edith Mcallister BEEF CATTLE SPECIALIST Facili ty:[facility] Start: 12-26-2024 ambulatory Christiano Yuan Facility:[facility] Start: 12-26-2024 Non-patient / Non-visit Dr. Christiano Yuan MD -[facility] Start: 12-26-2024 End: 12-26-[address] Georgiana Mcfadden MD Work Phone: -Cardiovascular Services Start: 12-26-2024 End: 12-26-[address] Christiano Yuan MD -Cardiovascular Services Work Phone: Start: 12-26-2024 End: 12-26-2024 ambulatory Christiano Yuan [facility] Start: 11-29-2024 End: 11-29-[address] Christiano Yuan MD -[facility] Work Phone: Start: 11-29-2024 End: 11-29-[address] Georgiana Mcfadden MD Work Phone: -[facility] Start: 11-28-[address] Georgiana Littlejohn MD -Occupational Therapy Work Phone: Start: 07-05-2024 End: 07-05-2024 ambulatory Georgiana Mcfadden Facility[facility] Start: 04-22-2024 End: 04-22-2024 ambulatory Georgiana Mcfadden Facility:[facility] [place] [place] Start: 03-14-2024 End: 03-14-2024 ambulatory Georgiana Mcfadden Facility:[facility] Start: 01-25-2024 ambulatory Georgiana Mcfadden Facilit y:[facility] Start: 01-25-2024 End: 01-25-2024 ambulatory Georgiana Mcfadden Facility:[facility] Start: 09-04-2023 End: 09-04-[address] Georgiana Mcfadden Work Phone: [facility] Work Phone: Start: 09-04-2023 End: 09-04-[address] Georgiana Mcfadden Work Phone: [facility] Work Phone: Start: 06-29-2023 End: 06-29-[address] Georgiana Mcfadden Work Phone: [facility] Work Phone: Start: 06-26-2023 End: 06-26-[address] Georgiana Mcfadden Work Phone: [facility] Work Phone: Start: 06-26-2023 End: 06-26-[address] Georgiana Mcfadden Work Phone: [facility] Start: 06-03-2023 End: 06-03-[address] Georgiana Mcfadden Work Phone: [facility] Work Phone: Start: 06-03-2023 End: 06-03-[address] Georgiana Mcfadden Work Phone: [facility] Work Phone: Start: 05-29-2023 End: 05-29-[address] Georgiana Mcfadden Work Phone: [facility] Work Phone: Start: 05-29-2023 End: 05-29-[address] Georgiana Mcfadden Work Phone: [facility] Work Phone: Start: 03-27-2023 End: 03-27-[address] Georgiana Mcfadden Work Phone: [facility] Work Phone: Start: 03-24-2023 End: 03-24-[address] Gerogiana Mcfadden Work Phone: [facility] Work Phone: Start: 03-24-2023 End: 03-24-[address] Georgiana Mcfadden Work Phone: [facility]-Outpatient Breast Imaging Work Phone: Start: 03-11-2023 End: 03-11-[address] Georgiana Mcfadden Work Phone: [facility] Work Phone: Start: 03-11-2023 End: 03-11-[address] Georgiana Mcfadden Work Phone: [facility] Work Phone: Start: 02-19-2023 End: 02-19-[address] Georgiana Mcfadden Work Phone: [facility] Work Phone: Start: 01-26-[address] Georgiana rader Work Phone: [facility]-Cardiovascular Services Work Phone: Start: 12-11-2022 End: 12-11-[address] Georgiana Mcfadden Work Phone: [facility] Work Phone: Start: 12-11-2022 End: 12-11-[address] Georgiana Mcfadden Work Phone: [facility] Work Phone: Start: 03-24-2022 End: 03-24-[address] Georgiana Mcfadden Work Phone: [facility] Work Phone: Start: 03-24-2022 End: 03-24-[address] Georgiana Mcfadden Work Phone: [facility] Start: 02-10-2022 End: 02-10-[address] Georgiana Mcfadden Work Phone: [facility] Start: 10-23-2021 End: 10-23-[address] Georgiana Mcfadden Work Phone: [facility] Start: 10-22-2021 End: 10-22-[address] Georgiana Mcfadden Work Phone: [facility] Start: 09-19-2021 End: 09-19-[address] Georgiana Mcfadden Work Phone: [facility] Start: 09-04-2021 End: 09-04-[address] Georgiana Mcfadden Work Phone: [facility] Start: 08-08-2021 End: 08-08-[address] Georgiana Mcfadden Work Phone: [facility] Start: 08-07-2021 End: 03-23-2022 Ot evaluation Georgiana Littlejohn MD Work Phone: [facility] Work Phone: Start: 07-30-2021 Non-patient / Non-visit Dr. Georgiana Mcfadden Work Phone: [facility] Start: 07-29-2021 End: 07-30-2021 Evaluation and management of inpatient Dr. Georgiana Mcfadden Work Phone: [facility]-Medical Surgical 3 Start: 07-29-2021 Non-patient / Non-visit Dr. Georgiana Mcfadden Work Phone: [facility] Start: 07-22-2021 Non-patient / Non-visit Dr. Georgiana Mcfadden Work Phone: [facility] Start: 07-02-2021 End: 07-02-[address] Georgiana Mcfadden Work Phone: [facility] Start: 06-19-2021 End: 06-19-[address] Georgiana Mcfadden Work Phone: [facility] Start: 06-17-2021 End: 06-17-[address] Georgiana Mcfadden Work Phone: [facility] Start: 06-13-2021 Admission to same y surgery center Dr. Georgiana Mcfadden Work Phone: [facility]-Endoscopy Start: 05-31-2021 Non-patient / Non-visit Dr. Georgiana Mcfadden Work Phone: [facility] Start: 05-31-2021 End: 05-31-2021 Admission to same day surgery center Dr. Georgiana Mcfadden Work Phone: [facility]-Endoscopy Start: 05-27-2021 End: 05-27-[address] Georgiana Mcfadden Work Phone: [facility]-Ultrasound, [facility] Start: 05-20-2021 End: 05-20-[address] Georgiana Mcfadden Work Phone: [facility] Start: 04-26-[address] Georgiana Mcfadden Work Phone: [facility] Start: 09-24-2020 End: 09-26-2020 Evaluation and management of inpatient Brad Gama MD Work Phone: [facility] H[facility] TELEMETRY Comment on above: S/P thoracotomy (Maria Elena paulo Dx) Start: 09-20-2020 End: 09-20-2020 Subsequent hospital visit by physician Brad Gama MD Work Phone: [facility] Pre-Admit Testing Comment on above: Pleural effusion Start: 07-10-2020 Patient encounter procedure SELF SELF Facility:[facility] Procedures Date Procedure Procedure Detail Performing Clinician Start: 12-26-2024 Radionuclide imaging of perfusion of myocardium under exercise stress Dr. Georgiana Mcfadden MD Work Phone: Start: 09-04-2023 Plain chest X-ray Dr. Elena Mcfadden Work Phone: Start: 06-03-[address] e detection Dr. Georgiana Mcfadden Work Phone: Start: 06-03-2023 Giardia Antigen (KIMI) Jomar Mcfadden Work Phone: Start: 06-03-2023 Lactoferrin measurement [...] 09-24-2020 Hemoglobin glycosyla karan a1c Margarethchetna Lou OLIVE KNOCKER - BIZTALK CONSULTANT Work Phone: Start: 09-20-2020 Antibody screen Brad washington MD Work Phone: Start: 09-20-2020 Radiologic exam ches t 2 views Shashank Umanzor [employer] KNOCKER - BIZTALK CONSULTANT Work Phone: Start: 09-20-2020 MRSA BY PCR Shashank Palafox on [employer] - [employer]TALK CONSULTANT Work Phone: Start: 09-20-2020 Blood typing serolog ic abo Shashank Umanzor OLIVE KNOCKER - BIZTALK CONSULTANT Work Phone: Start: 09-20-2020 Comprehensive metabo lic panel Shashank Umanzor OLIVE KNOCKER - BIZTALK CONSULTANT Work Phone: Start: 09-20-2020 Ecg routine ecg w/le ast 12 lds w/i&r Shashank Umanzor OLIVE KNOCKER - BIZTALK CONSULTANT Work Phone: NEGATED: Highlighted rowStart: 08-07-2021 End: 08-07-2021 Documentation of current medications Paulo Cuadra VIVIANA Plan of Treatment Date Care Activity Detail Author Start: 10-25-2025 DTaP/Tdap/Td vaccine (2 - Td) DTaP/Tdap/Td vaccine (2 - Td) [facility] Work Phone: Start: 11-29-2024 Evaluation of diagno stic study results [facility] Start: 06-03-2023 Elastase.pancreatic [Presence] in Stool [facility] Start: 06-03-2023 Protein measurement [facility] Start: 06-03-2023 [facility] Start: 05-29-2023 Celiac disease screen [facility] Start: 05-29-2023 IgG subclass panel [Mass/volume] - Serum [facility] Start: 05-29-2023 Immunoglobulin measurement [facility] Start: 09-26-2021 Creatinine measurement Creatinine mo nitoring [...] 08-07-2021 End: 08-07-2021 Patient encounter procedure Appointment [facility] Work Phone: Start: 08-07-2021 End: 08-07-2021 Radex hand minimum 3 views [facility] Work Phone: Start: 05-31-2021 Colsc flx w/rmvl of tumor polyp lesion snare tq COLONOSCOPY W/LESION REMOVAL [facility] Work Phone: Start: 05-31-2021 Egd transoral biopsy single/multiple EGD BIOPSY SINGLE/MULTIPLE [facility] Work Phone: Start: 09-24-2020 Subsequent hospital visit by physician 09/24/2020 Hospital Encounter General Surgery Brad Gama MD [address] [place], [place] [id number] [facility] General Surgery Start: 09-20-2020 COVID-19 Vaccine (2 - Moderna 2-dose series) COVID-19 Vaccine (2 - Moderna 2-dose series) [facility] Work Phone: Start: 09-13-2020 Annual Wellness Visi [...] Daily until discontinued starting 09/26/2020, 1 completed [employer] Work Phone: Comment on above: Daily until disconti nued starting 09/26/2020, 1 completed CBC panel - Blood by Automated count CBC Lab Routine Daily until discontinued starting 09/26/2020, 1 completed [employer] Work Phone: Comment on above: Daily until disconti nued starting 09/26/2020, 1 completed Clostridioides diffi cile DNA [Presence] in Unspecified specimen by PADMINI with probe detection [facility] CPAP CPAP Respiratory Care Routine Every 4hr until discontinued starting 09/24/2020 [facility] Work Phone: Comment on above: Every 4hr until disc ontinued starting 09/24/2020 EKG 12 lead EKG 12 lead ECG Routine Pleural effusion 09/20/2020 2:51 PM EDT [facility] Work Phone: Elastase.pancreatic [Presence] in Stool [facility] Gastrointestinal pat hogens panel - Stool by PADMINI with probe detection [facility] Giardia lamblia Ag [Presence] in Stool by Immunoassay [facility] Giardia lamblia anti gen assay [facility] IgA [Mass/volume] in Serum or Plasma [facility] IgE [Units/volume] i n Serum or Plasma [facility] IgG [Mass/volume] in Serum or Plasma [facility] IgG subclass 1 [Mass/volume] in Serum [facility] IgG subclass 2 [Mass/volume] in Serum [facility] IgG subclass 3 [Mass/volume] in Serum [facility] IgG subclass 4 [Mass/volume] in Serum [facility] IgM [Mass/volume] in Serum or Plasma [facility] Lactoferrin [Presenc e] in Stool by Immunoassay [facility] Measurement of immunoglobulin A in serum specimen [facility] Natriuretic peptide. B prohormone N-Terminal [Mass/volume] in Serum or Plasma [facility] Nebulizer therapy HHN Treatment Respiratory Care Routine Every 4hr while awake until discontinued starting 09/24/2020 [facility] Work Phone: Comment on above: Every 4hr while awak e until discontinued starting 09/24/2020 Ova and parasites identified in Unspecified specimen by Light microscopy [facility] Ova and parasites identified in Unspecified specimen by Light microscopy [facility] Oxygen therapy [[facility] Data Set] Initiate Oxygen Therapy Protocol Respiratory Care Routine Daily until discontinued starting 09/24/2020 [facility] Work Phone: Comment on above: Daily until disconti nued starting 09/24/2020 Patient referral [facility] Work Phone: PREPARE RBC (CROSSMA [facility]), 2 Units PREPARE RBC (CROSSMATCH), 2 Units Blood Bank Routine Pleural effusion 09/20/2020 3:21 PM EDT [facility] Work Phone: Protein measurement [facility] Spirometry panel Incentive aleida metry Respiratory Care Routine Every 2hr while awake until discontinued starting 09/24/2020 [facility] Work Phone: Comment on above: Every 2hr while awak e until discontinued starting 09/24/2020 Tissue transglutamin ase IgA Ab [Units/volume] in Serum [facility] End: 10-01-2020 XR CHEST PORTABLE XR CHEST PORTABLE Imaging Routine Daily for 7 Occurrences starting 09/25/2020 until 10/01/2020, 2 completed [facility] Work Phone: Comment on above: Daily for 7 Occurren messi starting 09/25/2020 until 10/01/2020, 2 completed Immunizations Immunization Date Immunization Notes Care Provider Fa [facility] 03-24-2021 Covid (Moderna) Dr. Georgiana quezada Work Phone: [facility] 01-31-2020 influenza, injectabl e, quadrivalent, preservative free Dr. Georgiana Mcfadden Work Phone: [facility] 01-31-2020 influenza, seasonal, injectable Dr. Georgiana Mcfadden Work Phone: [facility] Work Phone: Payers Date Payer Category Payer Self-pay [id number] 2019 Medicare [id number] 2014 Unknown [id number] 1950 Unknown [id number] 2.16. [id number] Unknown [id number] 2.16.8 [id number] Unknown [id number] 2.16.8 [id number] Unknown [id number] 2.16.8 [id number] Unknown [id number] 2.16.8 [id number] Unknown [id number] 2.16.8 [id number] Unknown [id number] 2.16.8 [id number] Unknown [id number] 2.16.8 [id number] Unknown [id number] 2.16.8 [id number] Unknown [id number] 2.16.8 [id number] Unknown [id number] 2.16.8 [id number] Unknown [id number] 2.16.8 [id number] Social History Date Type Detail Facility Start: 09-20-2020 End: 06-29-2023 Tobacco smoking status NHIS Former smoker [facility] History of tobacco use Cigarette Smoker [facility] Start: 09-20-2020 End: 09-25-2020 Cigarettes smoked current (pack per day) - Reported [facility] Work Phone: Start: 09-20-2020 End: 09-25-2020 Tobacco use and exposure Never used [facility] Start: 09-20-2020 End: 09-25-2020 Alcohol intake Current drinker of alcohol (finding) [facility] Work Phone: Start: 09-20-2020 Tobacco Comment 1PPD TIMES 20 YRS QUIT 1979 [facility] Work Phone: Start: 09-13-2020 Alcohol Comment 1 glass of win e per evening [facility] Work Phone: Sex Assigned At Not on file [facility] Work Phone: Exposure to SARS-CoV -2 (event) Not sure [facility] Start: 08-08-2021 End: 06-29-2023 Assertion Unknown if ever smoked [facility] Work Phone: Start: 04-03-2020 Occasional Dominik Co [facility] Start: 04-03-2020 None Dominik Co [facility] Start: 04-02-2020 Spouse/ Signif icant Other [facility] Start: 04-03-[address] Non-[address] [facility] Start: 1950 Sex Assigned At Male [facility] Medical Equipment Procedure Code Equipment Code Equipment Origin al Text Equipment Identifier Dates Sonal fundoplication CLIP,HEMOL OCK DARRELL ROBERTS FDA Start: 07-29-2021 Sonal fundoplication PLEDGET,SO FT 8x8x1.6mm FDA Start: 07-29-2021 Sonal fundoplication SEALANT,FL OSEAL HEMOSTATIC 5ML FDA Start: 07-29-2021 Sonal fundoplication SEALANT,FL OSEAL HEMOSTATIC 5ML FDA Start: 07-29-2021 Sonal fundoplication Ligation c lip, synthetic polymer, non-bioabsorbable [id number] FDA Start: 07-29-2021 Sonal fundoplication DRESSING,F IBRILLAR [...] FDA Start: 07-29-2021 Sonal fundoplication CLIP,HEMOL OCK ABDI FDA Start: 07-29-2021 Sonal fundoplication PLEDGET,SO [...] Assessment Result Facility 07-30-[address] [facility] Work Phone: Mental Status Date Assessment Result Facility 07-30-2021 Cognitive function Level Of Cons ciousness Awake;Alert;Appropriate;Follow s Commands [facility] Work Phone: 07-29-2021 Cognitive function Voice/Name [facility] Work Phone: 06-13-2021 Cognitive function Level Of Cons ciousness Awake;Alert;Appropriate;Follow s Commands [facility] Work Phone: 05-31-2021 Cognitive function Voice/Name [facility] Work Phone: Clinical Notes 09-20-2020 to 11-29-2024 Note Date & Type Note Facility 11-29-2024 Evaluation note Diagnosis Onset Date Resolution SOB (shortness of breath) acute November 29, 2024 3:43pm Essential (primary) hypertension chronic November 29, 2024 3:43pm Hyperlipidemia chronic November 29, 2024 3:43pm [facility] Work Phone: 1(721) 145-362503-14-2022 Chief complaint+Reason for visit Narrative * Chief Complaint EPIGASTRIC PAIN F/U C-Scope HIATAL HERNIA Discuss results LAP TOUPET PROCEDURE LAP TOUPET PROCEDURE LAP TOUPET PROCEDURE LAP TOUPET PROCEDURE [facility] 07/29 F/U [facility] 07/29 Reason for Visit Splenic hemorrhage History of repair of hiatal hernia [facility] Work Phone: 1(559) 881-454803-14-2022 Chief complaint+Reason for visit Narrative * Chief Complaint Discuss results LAP TOUPET PROCEDURE LAP TOUPET PROCEDURE LAP TOUPET PROCEDURE LAP TOUPET PROCEDURE [facility] 07/29 F/U [facility] 07/29 EORDER Reason for Visit Splenic hemorrhage History of repair of hiatal hernia [facility] Work Phone: 1(232) 773-871505-12-2021 Note Attestation signed by Brad Gama MD at 09/27/2020 12:44 PM I independently saw and evaluated the patient - including reviewing the labs, imaging studies, and available documentation. I agree with the findings and plan of care as documented by the resident/YARN DRY ROOM WORKER/BEEF CATTLE SPECIALIST/PA, unless otherwise noted. Please do not hesitate to contact me/us if you have any questions or concerns. Brad Gama MD FACS Discharge Summary: Cardiothoracic Surgery Suzette Palomino :1950 AGE: 70 y.o. ADMIT DATE: 09/24/2020 DISCHARGE DATE: 09/26/2020 DISCHARGING SURGEON: Brad Gama MD, Office Number: [phone] PRIMARY CARE PHYSICIAN: GEORGIANA FLOREZ VISIT STATUS: [...] DISCHARGE MEDICATIONS: Suzette Palomino Home Medication Instructions RE:[id number] Printed on:09/26/20 2078 Medication Information allopurinol (ZYLOPRIM) 300 MG tablet [...] us. SIGNED: Brad Moralez MD 09/26/2020, 5:39 [facility]05-12-2021 Hospital Discharge instructions* Instructions* Brad Moralez MD - 09/26/2020 Images from the original note were not included. [facility] Group: Cardiothoracic Surgery [address] [facility] (T): #[phone] (F): #[phone] After lung surgery, it is common to [...] or dog food bags, or a vacuum grave cleaner. If your incision is in the [...] start to have pain. Shoulder Stretch 1. universal grinder set up operator a doorway and place one arm [...] Ifyou are prescribed oxycodone/acetaminophen (Percocet) or hydrocodone/acetaminophen (Haughton/Vicodin) be cautious when taking additional tylenol. No [...] -Chest pain. -Abdominal distention. documented in this [facility] Work Phone: 1(349) 116-626405-12-2021 History of Present illness Narrative* Aletha Demarco RN - 09/26/2020 1:37 PM EDT Went over discharge instructions, med rec, and prescription with pt. Pt verbalized understanding. Extra drsgs given to pt. Transportation notified of discharge * Paris Connell - 09/26/2020 12:01 PM EDT Nutrition rescreen completed. Chart reviewed. Patient to be monitored and followed by the diet machine shop repair technician. SHANTELLE Verduzco * Brad Moralez MD [...] plan of care as documented by the resident/YARN DRY ROOM WORKER/BEEF CATTLE SPECIALIST/PA, unless otherwise noted. Please do not hesitate to contact me/us if you have any questions or concerns. Brad Gama MD FACS * Kerwin Crocker, PT - 09/25/2020 10:25 AM EDT Physical Therapy Facility/Department: [facility] Initial Assessment NAME: [...] Ambulation Assistance: Independent Transfer Assistance: Independent Active Polysomnograph Tech: Yes Cognition Cognition Overall Cognitive Status: WFL [...] 0-100% Score: 0 (09/25/20 1025) Mobility Inpatient CMS G-Code Modifier : CH [...] in sodium chloride 0.9 % 30 mL [employer], , Intravenous, Continuous HYDROmorphone (DILAUDID) injection 0.5 [...] medications per pain management team -Transfer to [address] Associated attestation - Brad Gama MD - 09/25/2020 12:11 PM EDT I independently saw and evaluated the patient - including reviewing the labs, imaging studies, and available documentation. I agree with the findings and plan of care as documented by the resident/YARN DRY ROOM WORKER/BEEF CATTLE SPECIALIST/PA, unless otherwise noted. Please do not hesitate to contact me/us if you have any questions or concerns. Brad Gama MD FACS * Shelley Contrersa - 09/24/2020 4:46 PM EDT Belongings taken to pt admit room [address] documented [facility] encounter[facility] Work Phone: [phone]) 464-626805-06-2021 History of Present illness Narrative* Margareth Lou APRN - CNP - 09/20/2020 2:00 PM EDT Received notification per lab- CBC and A1C clotted Ordered repeat DOS. documented in this encounterSUMMA Work Phone: [phone]) 401-929405-06-2021 Hospital Discharge instructions* Instructions* Eva Servin RN - 09/20/2020 Please bring your CPAP/BiPAP device, mask, and equipment with you on the day of surgery. Do not bring water for your machine, it will be provided.Shower with and antibacterial soap such as Dial or Safeguard. Please bring your [employer] [facility] Information folder on the day of [...] Everywhere. * VATS (Video-Assisted Thoracoscopic Surgery): Post-op (Montenegrin) * Thoracoscopic Sympathectomy: Pre-op (Montenegrin) * Thoracotomy: Post-op (Montenegrin) * VATS (Video-Assisted Thoracoscopic Surgery): Pre-op ([place]gr[place]) [facility] Work [facility]: Evaluation note* Diagnosis Pleural effusion Unspecified pleural effusion documented in this encounter [facility] Work Phone: Evaluation note* Diagnosis S/P thoracotomy- Primary Other postprocedural status [facility] in this encounter [facility] Work Phone: Evaluation noteThere may be information available, but it has not been provided by the sender.[facility] Work Phone: Evaluation note* Diagnosis Onset Date Resolution Status Family history of colon cancer acute Splenic hemorrhage resolved [facility] Work Phone: Evaluation note* Diagnosis Onset Date Resolution Status Splenic hemorrhage resolved History of repair of hiatal hernia acute [facility] Work Phone: Evaluation note* Diagnosis Onset Date Resolution Status Small intestinal bacterial overgrowth (SIBO) acute [facility] Work Phone: Evaluation note* Diagnosis Onset Date Resolution Status Essential (primary) hypertension chronic Hyperlipidemia chronic [facility] Work Phone: Evaluation note* Diagnosis Onset Date Resolution Status Breast mass, right acute Small intestinal bacterial overgrowth (SIBO) acute Excessive flatus chronic [facility] Work Phone: Evaluation note* Diagnosis Onset Date Resolution Status Breast mass, right acute Small intestinal bacterial overgrowth (SIBO) acute Excessive flatus chronic Abnormal ultrasound of breast acute [facility] Work Phone: Evaluation note* Diagnosis Onset Date Resolution Status Small intestinal bacterial overgrowth (SIBO) acute Excessive flatus chronic Abnormal ultrasound of breast acute [facility] Work Phone: Evaluation note* Diagnosis Onset Date Resolution Status Admit Date Essential (primary) hypertension chr onic November 29, 2024 3:43pm [facility] Work Phone: Instructions* Instruction Description Start Date CompletedPatient advised to follow-up with Primary Care Physician for BMI management. [facility] Work Phone: Reason for referral (narrative)No reason for referral information availableBlSanta Clara [facility] Work Phone: Summary Purpose Family [...] Yes July 29, 2021 3:27pm Power of Lease Operator Yes July 29 3:27pm Advance Directive Response Recorded Date/ Time Living Will Yes July 29, 2021 2:27pm Power of Lease Operator Yes July 29 2:27pm Reason for Referral Status Reason Specialty Diagnoses / Procedures Referre d By Contact Referred To Contact [facility]iology Diagnoses Pleural effusion Procedures EKG 12 lead Shashank Umanzor APRN - CNP [address] [place] [id number] Chief Complaint Chief Complaint Description Start Date [...] Date Essential (primary) hypertension November 292024 3:43pm Chief Complaint Admit Date 2 Y FU November 29, 2024 3:43 pm shortness of breath December 26, 2024 6: 46am Amb Documentation December 26, 2024 2: 40pm R WRIST/HAND. PT HAS RX December 26 4:30pm Amb Documentation December 27, 2024 9: 09am Reason for Visit Admit Date SOB (shortness of breath) November 29 3:43pm Essential (primary) hypertension November 292024 3:43pm Hyperlipidemia November 29, 2024 3:43 pm Additional Source Comments (unrecognized sect ion and content) No Status Records FoundNo Status Records FoundNo Status Records Found INFORMATION SOURCE (unrecogn ized section and content) DATE CREATED AUTHOR 07/12/2020 [facility] DATE CREATED AUTHOR AUTHOR'S ORGANIZ ATION 08/30/2021 [facility] DATE CREATED AUTHOR AUTHOR'S ORGANALYSON ATION 01/14/2025 [facility] Ordered Prescriptions (unrec ognized section and [...] Dr. Georgiana Mcfadden MD Primary Care Pr rafaela, Attending Provider, Referring Provider Active Dr. Edd [...] November 29, 2024 End: November 29, 2024 Team Status: Inactive Member Role/Relationship Status Dates Dr. Georgiana Mcfadden MD Primary Care Provider Active Start: November 29, 2024 End: November 29, 2024 Dr. Georgiana Mcfadden MD Referring Provider Active Start: November 29, 2024 End: November 29, 2024 Dr. Christiano Yuan MD Attending Provider Active S tart: November 29, 2024 End: November 29, 2024 Team Status: Inactive Member Role/Relationship Status Dates Dr. Georgiana Mcfadden MD Primary Care Provider Active Start: December 26, 2024 End: December 26, 2024 Dr. Christiano Yuan MD Attending Provider Active S tart: December 26, 2024 End: December 26, 2024 Dr. Christiano Yuan MD Referring Provider Active S tart: December 26, 2024 End: December 26, 2024 Team Status: Active Member Role/Relationship Status Dates Dr. Georgiana Mcfadden MD Primary Care Provider Active Start: December 26, 2024 Dr. Christiano Yuan MD Attending Provider Active S tart: December 26, 2024 Team Status: Active Member Role/Relationship Status Dates Dr. Georgiana Mcfadden MD Primary Care Provider Active Start: December 26, 2024 Edith Mcallister NP, BEEF CATTLE SPECIALIST-C Attending Provider Active Start: December 26, 2024 Team Status: Active Member Role/Relationship Status Dates Dr. Georgiana Mcfadden MD Primary Care Provider Active Start: December 26, 2024 Dr. Georgiana Littlejohn MD Attending Provider Active Start: December 26, 2024 Dr. Georgiana Littlejohn MD Referring Provider Active Start: December 26, 2024 Team Status: Active Member Role/Relationship Status Dates Dr. Georgiana Mcfadden MD Primary Care Provider Active Start: December 27, 2024 Edith Mcallister NP, BEEF CATTLE SPECIALIST-C Attending Provider Active Start: December 27, 2024 FOR RECORDS PERTAINING TO PATIENTS WHO [...] BE BASED ON THE PRIMARY CLINICAL RECORDS. [facility] [employer] provides no warranty or guarantee of the accuracy or completeness of information in this document.
== END | disposition home or self-care (01) ==
LOC: PAVLAB 11:17
PROVIDERS: PCP Family Medicine; Referring Provider Internal Medicine Cardiovascular Disease; Visit Provider Internal Medicine Cardiovascular Disease
DX: I10 Essential (primary) hypertension (principal); R06.02 Shortness of breath; M10.9 Gout, unspecified
CPT/HCPCS: 36415; 80053; 80061; 81001; 83735; 83880; 84443; 84550; 85025

== ENCOUNTER 2025-03-30 15:30 | Outpatient (RCR) | payer MEDICARE, OTHER, SELFPAY ==
--- NOTE | 2024-06-08 10:31 | HP.OTEVAL ---
Patient's Visit Information Visit Information Visit Information: SUZETTE GOTTLIEB is a 74 year old M, referred to Occupational Therapy by Dr. Seng Littlejohn MD, with a diagnosis of Palmar Fascial fibromatosis (Dupuytren's). Date of Evaluation: 06/08/24 Occupational Therapist: Saida Cruz, VALERIE/Lillie, CHT Subjective Subjective: This 74 year old male was seen for OT eval with dx of Palmar fascial fibromatosis - Dupuytren contracture. pt states after he struggled with straightening his right RF and LF for a few years and decided to have sx. pt underwent open fasciotomy on 06/02/24. pt arrives today with paddle orthosis on. pt states he is limited with ADLs at this time due to healing wound and incision. pt is retired from [employer] and enjoys playing golf. Pt would like to return to [employer] by September. pt states he did receive post-surgical exercise from his therapist at . pt demo understanding of the exercise for this therapist- However states he is just doing the exercise 2-3x a day not the 6-8x a day he was instructed to do. Pain right hand: Current Pain Intensity: 3 Pain Intensity Range: 5 ROM Wrist: right/left WNL MP: right LF +5 /45 left 0/90 RF +10/55 left 0/85 ROM Comments: Right LF PIP 0/60 DIP 0/30 left 0/95 DIP 0/60 right RF PIP +6/70 DIP 0/35 left 0/90 DIP 0/60 slight bruising/min edema noted on right hand Strength Transportation Planning Technician: right NT left 90# Lateral Pinch: right NT left 28# Tripod Pinch: right NT left 20# Strength Comments: will test right at later date Sensation Thumb: right 2.83 left 2.83 Little: right 3.61 left 2.83 Quick DASH-Disab of Arm,Shoulder& Hand Quick DASH Score: 58.3325 Goals Goal:Daily scar massage when approriate: Yes Goal:ROM equal to unaffected hand: Yes Goal:Transportation Planning Technician/Pinch strength at least 75% of unaffected hand: Yes Goal:No pain with affected hand use: Yes Goal:Full use of affected hand in daily activities including work: Yes Goal:Improvement in sensation documented by [place]-Dusty monofiliaments: Yes Other Goal: orthosis use: pt will demo understanding of using orthosis to decrease risk of contracture by end of 1st session. Rehabilitation General Assessment: pt arrives s/p 6 days from open yarbrough fasciotomy. Pt demo with newly healing structures and cannot fully use his right hand with daily tasks. Pt demo a need for skilled OT services 1-2x week for 6 -8 weeks to achieve maximal rehab outcome. Today therapist ed. pt on dx, wound healing and reviewed pts HEP of tendon glide, wrist ROM, opposition and finger add and abduction. Therapist ed. pt on importance of performing exercise 6-8x a day to decrease risk of scar adhesions. pt demo understanding and agree to POC. Rehabilitation Potential: Good Anticipated Interventions Anticipated Interventions: A/AAROM/PROM, Strengthening, Edema Control, Scar Care, Triggerpoint Release, Sensory Retraining, Wound Care, Modalities, Orthoses, Joint Protection/Energy Conservation, Ergonomic Education, Fine Motor Coord/Jaek, Education re assistive Equipment, Education re Diagnosis and Home Program Visit Plan Frequency: 1-2x /Week Duration: 6 Weeks General Plan: ROM edema dressing change Soak use of Paddle orthosis TEXT: Thank you for the opportunity to evaluate your patient. For Medicare and Medicare HMO plans, please review the plan of care and approve it. It will need to be FAXED BACK to us at [phone] for Medicare purposes. Please let me know if there are questions or concerns regarding this plan of care. Physician Signature: Date:
--- NOTE | 2024-07-13 12:20 | HP.OTREVAL ---
Re-Evaluation Intro: Dr. Seng Littlejohn MD, It has been my pleasure to treat SUZETTE GOTTLIEB over the last 6 visits for Palmar Fascial fibromatosis (Dupuytren's). Please see the progress note below for an update on the occupational therapy plan of care! Subjective Subjective: pt arrives states fingers are very stiff this am- he is using heat to decrease stiffness overall, he is happy with his progress Objective Objective/Function: pt demo full composite fist and full finger extension- pt does report stiffness with initial movement. pt states he does report numbness on radial side of his LF. therapist ed. this could take up to a year to return or permit loss from sx. pt demo understanding. pt states he is performing scar mtg. Plan Plan Frequency: 1x/Week Duration: 3 Weeks Plan: pt to see on Goals Goals Patient Goals: Regain Mobility, Use Hand/Wrist/Arm Normally Again and Resume Former Household Responsibilities (Cooking,Cleaning,Yard, etc.) Goal:Daily scar massage when approriate: Yes Goal:ROM equal to unaffected hand: Yes Goal:Carpenter Helper/Pinch strength at least 75% of unaffected hand: Yes Goal:No pain with affected hand use: Yes Goal:Full use of affected hand in daily activities including work: Yes Goal:Improvement in sensation documented by [place]-Dusty monofiliaments: Yes Other Goal: orthosis use: pt will demo understanding of using orthosis to decrease risk of contracture by end of 1st session. Anticipated Interventions Anticipated Interventions Anticipated Interventions: A/AAROM/PROM, Strengthening, Edema Control, Scar Care, Triggerpoint Release, Sensory Retraining, Wound Care, Modalities, Orthoses, Joint Protection/Energy Conservation, Ergonomic Education, Fine Motor Coord/Jake, Education re assistive Equipment, Education re Diagnosis and Home Program Re-Evaluation Ending Re-evaluation ending: Please do not hesitate to contact me at [phone] by phone or if you have questions or concerns regarding this new plan of care! Sincerely, Saida Cruz, OTR/L, CHT
== END 2025-03-30 19:00 | disposition home or self-care (01) ==
LOC: OT 15:30
PROVIDERS: PCP Family Medicine; Referring Provider Orthopaedic Surgery; Visit Provider Orthopaedic Surgery
DX: M72.0 Palmar fascial fibromatosis [Dupuytren] (principal)
CPT/HCPCS: 97035; 97110; 97140; 97166; 97530

== ENCOUNTER → 2025-04-04 | Outpatient (CLI) | payer MEDICARE, OTHER, SELFPAY ==
[2025-04-04 14:55] LABS: PSA,Total- Diagnostic 2.65 ng/mL (0.00-4.00)
== END | disposition home or self-care (01) ==
PROVIDERS: PCP Family Medicine; Referring Provider Urology; Visit Provider Urology
DX: N40.1 Benign prostatic hyperplasia with lower urinary tract symptoms (principal)
CPT/HCPCS: 36415; 84153